=== PATIENT | female | born 1985 | race Caucasian/White ===

== ENCOUNTER 2017-11-20 05:37 | Outpatient (CLI) | payer MEDICAID ==
[~2017-11-20] VITALS: Ht 162.6 cm; Wt 115.2 kg
[~2017-11-20 05:37] MED LIST: ALBU0.632 IH; ALBU8.5H2 IH; AMOX500C2 PO; HYDR-3720 PO; IBP800T PO; METR500T PO
[2017-11-20] MEDS ORDERED: METF500T5 PO (09:22)
[2017-11-20] MEDS ORDERED: PRD20T PO (09:22)
[2017-11-20] MEDS ORDERED: BREX0.5T PO (09:22)
[2017-11-20] MEDS ORDERED: IBUP-1780 PO (09:22)
[2017-11-20] MEDS ORDERED: ASEN10TA9 SL (09:22)
[2017-11-20] MEDS ORDERED: DICY20TA10 PO (09:22)
[2017-11-20] MEDS ORDERED: OXCA300T4 PO ×2 (09:22)
[2017-11-20] MEDS ORDERED: RT-ALBUINH IH (09:22)
[2017-11-20] MEDS ORDERED: ASEN5TAB7 SL (09:22)
[2017-11-20] MEDS ORDERED: TRAM50TA2 PO (09:22)
[2017-11-20] MEDS ORDERED: ATOR20TA49 PO (09:22)
[2017-11-20] MEDS ORDERED: BUPR150T9 PO (09:22)
[2017-11-20] MEDS ORDERED: FLUT9.9S NS (09:22)
[2017-11-20] MEDS ORDERED: PANT40TA2 PO (09:22)
[2017-11-20] MEDS ORDERED: CYCL10TA9 PO (09:22)
[2017-11-20] MEDS ORDERED: ALBU0.63 IH (09:22)
== END 2017-11-20 09:54 ==
LOC: PREOP 05:37
PROVIDERS: ATTEND Surgery
DX: Z01.818 Encounter for other preprocedural examination (principal); K50.90 Crohn's disease, unspecified, without complications; K21.9 Gastro-esophageal reflux disease without esophagitis

== ENCOUNTER 2017-11-27 06:43 | Day surgery (SDC) | payer MEDICAID ==
[~2017-11-27] VITALS: Ht 162.6 cm; Wt 115.2 kg
[~2017-11-27 06:43] MED LIST changes: +ALBU0.63 IH; +ASEN10TA9 SL; +ASEN5TAB7 SL; +ATOR20TA49 PO; +BREX0.5T PO; +BUPR150T9 PO; +CYCL10TA9 PO; +DICY20TA10 PO; +FLUT9.9S NS; +IBUP-1780 PO; +METF500T5 PO; +OXCA300T4 PO; +PANT40TA2 PO; +PRD20T PO; +RT-ALBUINH IH; +TRAM50TA2 PO
--- OUTSIDE RECORDS SUMMARY | 2017-11-27 06:46 | XMS REPORT | Continuity of Care Document ---
Author Author [facility] Organization [facility] Address Unknown Phone Unavailable Allergies Active Description Code Type Severity Reaction Onset Reported/Identified Relationship to Patient Clinical Status Yes bismuth subsalicylate [id number] Drug Allergy Unknown NAUSEA 09/15/2013 Yes latex [id number] Drug Allergy Unknown RASH 09/15/2013 Yes meperidine [id number] Drug Allergy Unknown RASH 09/15/2013 Yes promethazine [id number] Drug Allergy Unknown DIFFICULTY SANDI 09/15/2013 Yes TAPE TAPE Unknown RASH 09/15/2013 Medications There is no data. Problems Date Dx Coded Attending Type Code Diagnosis Diagnosed By 09/18/2013 LEONARD SOSA MD Ot 218.2 SUBSEROUS LEIOMYOMA 09/18/2013 LEONARD SOSA MD Ot 614.6 FEM PELVIC PERITON ADH-POST-OP/INF 09/18/2013 LEONARD SOSA MD Ot 617.3 PELV PERIT ENDOMETRIOSIS 09/18/2013 LEONARD SOSA MD Ot 618.1 UTERINE PROLAPSE 09/18/2013 LEONARD SOSA MD Ot 620.2 OVARIAN CYST NEC/NOS 09/18/2013 LEONARD SOSA MD Ot 620.8 NONINFL DIS OVA/ADNX NEC 09/18/2013 LEONARD SOSA MD Ot 626.2 EXCESSIVE MENSTRUATION 09/18/2013 LEONARD SOSA MD Ot 626.8 MENSTRUAL DISORDER NEC 09/18/2013 LEONARD SOSA MD Ot V03.82 PROPHYLACTIC VACC AGAINST STREPTOCOCCUS 11/20/2017 LEONARD SOSA MD, Ot 626.2 EXCESSIVE MENSTRUATION 11/20/2017 LEONARD SOSA MD Ot V72.63 PRE-PROCEDURAL LABORATORY EXAMINATION 11/20/2017 LEONARD SOSA MD, Ot V72.84 EXAM PRE-OPERATIVE NOS 11/20/2017 LEONARD SOSA MD Ot 626.2 EXCESSIVE MENSTRUATION 11/20/2017 LEONARD SOSA MD Ot V72.63 PRE-PROCEDURAL LABORATORY EXAMINATION 11/20/2017 LEONARD SOSA MD, Ot V72.84 EXAM PRE-OPERATIVE NOS Procedures There is no data. Results There is no data. Encounters ACCT No. Visit Date/Time Discharge Status Pt. Type Provider Facility Loc./Unit Complaint [id number] 11/20/2017 05:37:00 11/20/2017 09:54:00 DIS Outpatient MACARIO SINGH DO [facility] PREOP COLONOSCOPY/EGD [id number] 11/09/2017 20:00:00 11/09/2017 23:59:59 CLS Preadmit BRYSON SHEPHERD APRN [facility] SLEEP HYPERSOMNIA, UNSPECIFIED G47.10 [id number] 09/17/2013 06:00:00 09/18/2013 09:30:00 DIS Outpatient LEONARD SOSA MD [facility] SDC MENORRHAGIA; CHRONIC PELVIC PAIN;ENDOMETRIOSIS [id number] 09/15/2013 09:54:00 09/15/2013 23:59:59 CLS Outpatient LEONARD SOSA MD [facility] PREOP MENORRHAGIA; CHRONIC PELVIC PAIN;ENDOMETRIOSIS [id number] 11/27/2017 08:00:00 PEN Preadmit MACARIO SINGH DO [facility] ENDO HX DIVERTICULTITIS/ CROHNS'S/GERD
[2017-11-27 07:16] VITALS: BP 121/72
[2017-11-27] MEDS ORDERED: LACTATED RINGERS 1,000 ML IV STA (07:20)
[2017-11-27] MEDS ORDERED: LACTATED RINGERS 1,000 ML IV ONE (07:21)
[2017-11-27] MEDS ORDERED: HURRICAINE EXT TUBE (BENZOCAINE) XX PRN (07:30)
[2017-11-27] MEDS ORDERED: MIDAZOLAM 2 MG/2 ML (VERSED) VIAL ONE ×2 (07:42→07:43)
[2017-11-27] MEDS ORDERED: PROPOFOL INJECTION 50 ML IV ONE (07:42)
--- NOTE | 2017-11-27 08:28 | Discharge Inst-Simple/Standard ---
Discharge Inst-Standard Patient Instructions/Follow Up Plan of Care/Instructions/FU: 2 weeks christoph Activity as Tolerated: Yes Discharge Diet: Regular Diet (high fiber) MACARIO SINGH DO Nov 27, 2017 08:28
--- NOTE | 2017-11-27 08:32 | Progress Note-Post Operative ---
Post-Operative Progess Note Surgeon (s)/Stonecutter Hand (s) Surgeon MACARIO SINGH DO Stonecutter Hand: na Pre-Operative Diagnosis history diverticulitis, crohn's, melana, gerd Post-Operative Diagnosis slight gastritis, diverticulosis, minute areas of inflammation Procedure & Operative Findings Date of Procedure 11/27/17 Procedure Performed/Findings egd c biopsy antrum ge junction colonoscopy with cold bx transverse colon Anesthesia Type per [facility] Estimated Blood Loss Estimated blood loss (mL): none Specimens/Packing Specimens Removed antrum, ge junction, transverse colon MACARIO SINGH DO Nov 27, 2017 08:32
[2017-11-27] MEDS ORDERED: HURRICAINE EXT TUBE (BENZOCAINE) ONE (08:43)
[2017-11-27 08:50] VITALS: BP 119/57
[2017-11-27 09:05] VITALS: BP 122/79
[2017-11-27 09:19] VITALS: BP 122/79
--- NOTE | 2017-11-27 14:22 | OPERATIVE REPORT ---
DATE OF SERVICE: PREOPERATIVE DIAGNOSES: History of diverticulitis and Crohn's, melena, gastroesophageal reflux disease. POSTOPERATIVE DIAGNOSES: Slight gastritis, diverticulosis, minute areas of inflammation of the colon. PROCEDURE: EGD with biopsies, colonoscopy with cold biopsy of transverse colon. SURGEON: Macario Ron DO. ANESTHESIA: Per MDA. ESTIMATED BLOOD LOSS: None. COMPLICATIONS: None. INDICATIONS: The patient is a 32-year-old female with history of diverticulitis and Crohn's and GERD symptoms. The patient understands risks and benefits of procedure and wished to proceed with procedure. Consent was signed on the chart. DESCRIPTION OF PROCEDURE: The patient was taken to the endoscopy suite, placed in left lateral recumbent position. Timeout was performed. Scope was inserted in mouth, down the esophagus, stomach and into the duodenum without difficulty. There were no polyps, masses or ulcerations within the duodenum. Scope was slowly withdrawn back to stomach, which had some areas of slight inflammation. This is consistent with slight gastritis. Biopsy of the antrum was obtained. Scope was retroflexed noting no other pathology. Scope was returned to its normal position, slowly withdrawn to the distal esophagus. The distal esophagus had very slight inflammation but no polyps, mass or ulcerations. Biopsy was obtained. Scope was then slowly retracted back to completely remove, noting no other pathology. Digital rectal exam was performed. There were no palpable polyps, masses or ulcerations. Scope was inserted in the rectum and advanced all the way to the cecum with minimal difficulty. Prep was adequate. There were no polyps, mass or ulcerations in the cecum, ascending, transverse, descending colon. Just very minute areas of inflammation throughout this area. Cold biopsy of the area was obtained at the transverse colon. Scope was continued to be slowly retracted back into the sigmoid colon, which shows a very minute amount of diverticulosis present. Scope was continued slowly retracted back. There were no polyps, mass or ulcerations. Once in the rectum, scope was also retroflexed noting no other pathology. Scope was returned to its normal position and slowly withdrawn until completely removed. RECOMMENDATIONS: The patient to continue on current medications. She will follow up in office in two weeks to discuss pathology results. The patient would be recommended repeat colonoscopy in two years to her Crohn's. Job ID: [id number] DocumentID: [id number] Dictated Date: 11/27/2017 08:37:43 Hha Date: 11/27/2017 14:21:43 Dictated By: MACARIO RON DO
--- NOTE | 2017-11-27 15:57 | Anesthesia-General Post-Op ---
MAC Patient Condition Mental Status/LOC: Same as Preop Cardiovascular: Satisfactory Nausea/Vomiting: Absent Respiratory: Satisfactory Pain: Controlled Complications: Absent Post Op Complications Complications None Follow Up Care/Instructions Patient Instructions None needed. Anesthesiology Discharge Order Discharge Order Patient was seen after the procedure and she was doing well, no complaints, stable vital signs, no apparent adverse anesthesia problems. KIRBY BRAXTON DO Nov 27, 2017 15:57
== END 2017-11-27 09:10 | disposition home or self-care (01) ==
LOC: ENDO 06:43
PROVIDERS: ATTEND Surgery
DX: K50.10 Crohn's disease of large intestine without complications (principal); K57.30 Diverticulosis of large intestine without perforation or abscess without bleeding; K29.70 Gastritis, unspecified, without bleeding; E11.9 Type 2 diabetes mellitus without complications; J45.909 Unspecified asthma, uncomplicated; G47.33 Obstructive sleep apnea (adult) (pediatric); F17.210 Nicotine dependence, cigarettes, uncomplicated; Z79.84 Long term (current) use of oral hypoglycemic drugs; Z79.899 Other long term (current) drug therapy; Z79.52 Long term (current) use of systemic steroids

== ENCOUNTER → 2017-12-18 | Outpatient (CLI) | payer MEDICAID ==
--- NOTE | 2017-12-18 12:42 | Diagnostic Imaging Report ---
INDICATION: Screening. COMPARISON: No prior mammograms are available for comparison. This is a baseline study. TECHNIQUE: 2D and 3D bilateral screening mammography was performed with CAD. FINDINGS: Scattered fibroglandular densities are identified bilaterally. No spiculated mass or malignant-appearing microcalcifications are seen. The axillae are unremarkable. IMPRESSION: No mammographic features suspicious for malignancy are identified. ACR BI-RADS Category 1: Negative. Result letter will be mailed to the patient. Note: At least 10% of breast cancer is not imaged by mammography. Dictated by: Dictated on workstation # [id number]
== END ==
LOC: RAD 09:19
PROVIDERS: ATTEND Nurse Practitioner Family
DX: Z12.31 Encounter for screening mammogram for malignant neoplasm of breast (principal)
CPT/HCPCS: 77067

== ENCOUNTER 2018-08-17 07:30 | Emergency (ER) | payer MEDICAID ==
[~2018-08-17] VITALS: Ht 160 cm; Wt 125.2 kg
[~2018-08-17 07:30] MED LIST changes: +METF-397 PO; -METF500T5 PO
--- OUTSIDE RECORDS SUMMARY | 2018-08-17 07:37 | XMS REPORT ---
Author Author JEFFREY CISNEROS Organization [facility] Address [address] [place] [address] Care Team Providers Care Associate Oracle Retail Name Role Phone JEFFREY CISNEROS Unavailable PROBLEMS Type Condition ICD9-CM Code KPW40-CB Code Onset Dates Condition Status SNOMED Code Problem Body mass index (BMI) of 50-59.9 in adult Z68.43 Active 933104248 Problem Polycystic ovarian syndrome E28.2 Active 62627243 Problem Morbid (severe) obesity due to excess calories E66.01 Active 028891866 Problem BMI 50.0-59.9, adult Z68.43 Active 845172144 Problem Environmental allergies Z91.09 Active 401105132 Problem Sleep apnea, unspecified type G47.30 Active 05644905 Problem Mood disorder F39 Active 54539530 Problem Hypersomnia G47.10 Active 12294421 Problem Daytime sleepiness R40.0 Active 518204897632 Problem Dyslipidemia E78.5 Active 488506863 Problem Diverticulitis K57.92 Active 015880526 Problem Seasonal allergic rhinitis due to pollen J30.1 Active 86003823 Problem Simple chronic bronchitis J41.0 Active 66837710 Problem Mild persistent asthma without complication J45.30 Active 200299500 Problem Anxiety F41.9 Active 39763213 Problem Enteropathic arthropathies, 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 Active 5566916 Problem Morbid obesity due to excess calories E66.01 Active 467858933 Problem Swelling of multiple joints M25.40 Active 03776005 Problem Nausea and vomiting in adult R11.2 Active 44426600 Problem Gastroesophageal reflux disease without esophagitis K21.9 Active 941461026 Problem Crohns disease without complication, unspecified gastrointestinal tract location K50.90 Active 32438793 Problem Metabolic syndrome E88.81 Active 232810864 Problem Bulging lumbar disc M51.26 Active 242503673 Problem Eczema, unspecified type L30.9 Active 76791928 ALLERGIES No Information ENCOUNTERS Encounter Location Date Diagnosis [facility] [id number] [place] [address]366- 5599 28 Apr, 2018 Mild persistent asthma without complication J45.30 and Polycystic ovarian syndrome E28.2 [facility] [id number] [place] [address] 50428- 7252 14 Apr, 2018 [place] [place] [id number] [place] [address] 94942- 0988 19 Mar, 2018 Dyslipidemia E78.5 and Crohns disease without complication, unspecified gastrointestinal tract location K50.90 [facility] [id number] [place] [address] 65528- 3660 15 Mar, 2018 Dyslipidemia E78.5 [facility] [id number] [place] [address] 92892- 3943 05 Mar, 2018 Crohns disease without complication, unspecified gastrointestinal tract location K50.90 ; Bulging lumbar disc M51.26 ; Mild persistent asthma without complication J45.30 ; Dyslipidemia E78.5 ; Long-term use of high-risk medication Z79.899 and BMI 50.0-59.9, adult Z68.43 [facility] [id number] [place] [address] 70364- 9109 12 Feb, 2018 Nausea and vomiting in adult R11.2 [facility] [id number] [place] [address] 73223- 4422 Dec, Gastroesophageal reflux disease without esophagitis K21.9 [facility] [id number] [place] [address] 97102- 6716 Dec, [facility] [id number] [place] [address] 31987- 7086 Dec, Skin lesion L98.9 and Skin tags, multiple acquired L91.8 [facility] [id number] [place] [address] 15838- 2385 Nov, Encounter for well woman exam without gynecological exam Z00.00 ; Metabolic syndrome E88.81 ; Crohns disease without complication, unspecified gastrointestinal tract location K50.90 ; Dyslipidemia E78.5 ; BMI 50.0-59.9, adult Z68.43 ; Abscess, dental K04.7 and Screening breast examination Z12.31 [place] [address] [address] 19[address]- [address]53 October, Sleep apnea, unspecified type G47.[address] [address]- [address] Sep, Diverticulitis K57.92 and BMI 50.0-59.9, adult Z68.43 [place] [address] 745[address]- 8074 Sep, [address] 857[address]- 8244 Sep, [address] 83882- 5960 Aug, [address] 38111- 7157 Jul, Dental examination Z01.[address] 38390- 8706 Jul, Polycystic ovarian syndrome E28.2 ; Nipple discharge N64.52 ; Mild persistent asthma without complication J45.30 ; Seasonal allergic rhinitis due to pollen J30.1 ; Abscess, dental K04.7 ; Nausea and vomiting in adult R11.2 and Body mass index (BMI) of 50-59.9 in adult Z68.43 [facility] [id number] [place] [address] 67473- 4851 May, [address] 77[address]- 0844 May, Metabolic syndrome E88.81 ; Dyslipidemia E78.5 and Morbid obesity due to excess calories E66.[address] 29640- 6812 May, Metabolic syndrome E88.81 ; Dyslipidemia E78.5 ; Morbid obesity due to excess calories E66.01 ; Mild persistent asthma without complication J45.30 ; Crohns disease without complication, unspecified gastrointestinal tract location K50.90 ; Daytime sleepiness R40.0 and Snoring R06.83 [facility] [place] [id number] [place] [address] 31272- 8420 Apr, Peroneal tendinitis of right lower extremity M76.71 [facility] [address] 39454- 9310 Mar, [place] [address] 68705- 3439 Mar, Mood disorder F39 ; Anxiety F41.9 ; Gastroesophageal reflux disease without esophagitis K21.9 ; Bulging lumbar disc M51.26 ; Swelling of multiple joints M25.40 ; Mild persistent asthma without complication J45.30 ; Enteropathic arthropathies, 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 ; Polycystic ovarian syndrome E28.2 ; Morbid (severe) obesity due to excess calories E66.01 ; Body mass index (BMI) of 50-59.9 in adult Z68.43 ; Dyslipidemia E78.5 ; Environmental allergies Z91.09 ; Simple chronic bronchitis J41.0 ; Crohns disease without complication, unspecified gastrointestinal tract location K50.90 ; Eczema, unspecified type L30.9 ; Pain in right ankle and joints of right foot M25.571 and Metabolic syndrome E88.81 [facility] [id number] [place] [address] 75710- 2400 Mar, [facility] [place] [id number] [place] [address] 83582- 1009 Mar, [place] [address] 49680- 7996 Mar, [place] [place] [id number] [place] [address] 30706- 6205 Feb, [place] [id number] [place] [address] 35414- 4629 Feb, Anxiety F41.9 ; Mood disorder F39 and Morbid (severe) obesity due to excess calories E66.01 [facility] [place] [id number] [place] [address] 40588- 4568 Feb, [place] [place] [id number] [place] [address] 54829- 4027 Feb, [facility] [id number] [place] [address] 99541- 7422 Feb, [facility] [place] [id number] [place] [address] 94592- 9049 Feb, Acute right ankle pain M25.571 ; Eczema, unspecified type L30.9 ; Hair loss L65.9 ; Polycystic ovarian syndrome E28.2 ; Body mass index ( BMI) of 50-59.9 in adult Z68.43 and Morbid (severe) obesity due to excess calories E66.01 [place] [place] [id number] [place] [address] 19084- 6036 Nov, [facility] [id number] [place] [address] 44875- 4650 October, [facility] [id number] [place] [address] 78255- 2370 Jul, [facility] [id number] [place] [address] 38510- 8444 Jul, Enteropathic arthropathies, 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 and Gastroesophageal reflux disease without esophagitis K21.9 [place] [address] [address] [place] [address] 87156- 0132 Apr, Mood disorder F39 ; Anxiety F41.9 ; Environmental allergies Z91.09 ; Gastroesophageal reflux disease without esophagitis K21.9 ; Bulging lumbar disc M51.26 ; Swelling of multiple joints M25.40 ; Mild persistent asthma without complication J45.30 ; Simple chronic bronchitis J41.0 ; Enteropathic arthropathies, 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 [id number] [place] [address] Apr, IMMUNIZATIONS No Known Immunizations SOCIAL HISTORY Never Assessed REASON FOR VISIT PLAN OF CARE VITAL SIGNS MEDICATIONS Medication Instructions Dosage Frequency Start Date End Date Duration Status Flonase 50 MCG/ACT Nasally Once a day 1 spray in each nostril 24h Active MetFORMIN HCl ER 500 mg Orally Once a day 1 tablet with evening meal 24h Jul, 30 day(s) Active RESULTS No Results PROCEDURES No Known procedures INSTRUCTIONS MEDICATIONS ADMINISTERED No Known Medications MEDICAL (GENERAL) HISTORY Type Description Date Medical History mood disorder Medical History treated like crohns Medical History copd Medical History tobaccoism Medical History asthma Medical History gerd Medical History allergies Surgical History partial colon removal Surgical History Hysterectomy 2013 Surgical History ovarian cysts removals Surgical History C section x 1 Surgical History D and C (numerous) Surgical History Colonoscopy (too numerous to count) Surgical History cholecystectomy Surgical History EGD at Hospitalization History for colon reasons Hospitalization History asthma Hospitalization History surgeries
--- OUTSIDE RECORDS SUMMARY | 2018-08-17 07:37 | XMS REPORT ---
Author Author BRYSON SHEPHERD Organization [facility] Address [address] [place] [address] Care Team Providers Care Security Auditor Name Role Phone JOAO BRYSON Unavailable PROBLEMS Type Condition ICD9-CM Code FKL55-ZP Code Onset Dates Condition Status SNOMED Code Problem Body mass index (BMI) of 50-59.9 in adult Z68.43 Active 621542717 Problem Polycystic ovarian syndrome E28.2 Active 59388551 Problem Morbid (severe) obesity due to excess calories E66.01 Active 752624707 Problem BMI 50.0-59.9, adult Z68.43 Active 407724276 Problem Environmental allergies Z91.09 Active 719682619 Problem Sleep apnea, unspecified type G47.30 Active 01686532 Problem Mood disorder F39 Active 64499775 Problem Hypersomnia G47.10 Active 19318746 Problem Daytime sleepiness R40.0 Active 544027999005 Problem Dyslipidemia E78.5 Active 345501806 Problem Diverticulitis K57.92 Active 489024841 Problem Seasonal allergic rhinitis due to pollen J30.1 Active 88425350 Problem Simple chronic bronchitis J41.0 Active 15684416 Problem Mild persistent asthma without complication J45.30 Active 430497698 Problem Anxiety F41.9 Active 32676961 Problem Enteropathic arthropathies, 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 Active 4418521 Problem Morbid obesity due to excess calories E66.01 Active 642440497 Problem Swelling of multiple joints M25.40 Active 86274351 Problem Nausea and vomiting in adult R11.2 Active 86035956 Problem Gastroesophageal reflux disease without esophagitis K21.9 Active 902201807 Problem Crohns disease without complication, unspecified gastrointestinal tract location K50.90 Active 41612030 Problem Metabolic syndrome E88.81 Active 891735537 Problem Bulging lumbar disc M51.26 Active 778734231 Problem Eczema, unspecified type L30.9 Active 89007848 ALLERGIES No Information ENCOUNTERS Encounter Location Date Diagnosis [facility] [address] [address] Feb, [place] [address] [place] [id number] [place] [address] 87554- 2633 Dec, Gastroesophageal reflux disease without esophagitis K21.9 [facility] [address] [id number] [place] [address] 53331- 6541 Dec, [facility] [address] [id number] [place] [address] 22586- 4030 Dec, Skin lesion L98.9 and Skin tags, multiple acquired L91.8 [facility] [facility] [address] [id number] [place] [address] 86724- 5380 Nov, Encounter for well woman exam without gynecological exam Z00.00 ; Metabolic syndrome E88.81 ; Crohns disease without complication, unspecified gastrointestinal tract location K50.90 ; Dyslipidemia E78.5 ; BMI 50.0-59.9, adult Z68.43 ; Abscess, dental K04.7 and Screening breast examination Z12.31 [place] [id number] [place] [address] 51011- 1601 October, Sleep apnea, unspecified type G47.30 [place] [id number] [place] [address] 65556- 7874 Sep, Diverticulitis K57.92 and BMI 50.0-59.9, adult Z68.43 [facility] [address] [id number] [place] [address] 29841- 5868 Sep, [place] [id number] [place] [address] 01914- 1057 Sep, [place] [address] [id number] [place] [address] 10249- 6646 Aug, [place] [address] [place] [address] 28900- 3770 Jul, Dental examination Z01.20 [place] [address] [place] [id number] [place] [address] 73597- 2550 Jul, Polycystic ovarian syndrome E28.2 ; Nipple discharge N64.52 ; Mild persistent asthma without complication J45.30 ; Seasonal allergic rhinitis due to pollen J30.1 ; Abscess, dental K04.7 ; Nausea and vomiting in adult R11.2 and Body mass index (BMI) of 50-59.9 in adult Z68.[address] [address]- [address]603 14 May, [address] 37902- 3733 11 May, 2017 Metabolic syndrome E88.81 ; Dyslipidemia E78.5 and Morbid obesity due to excess calories E66.[address] 40750- 8274 08 May, 2017 Metabolic syndrome E88.81 ; Dyslipidemia E78.5 ; Morbid obesity due to excess calories E66.01 ; Mild persistent asthma without complication J45.30 ; Crohns disease without complication, unspecified gastrointestinal tract location K50.90 ; Daytime sleepiness R40.0 and Snoring R06.[address] 39507- 3129 Apr, Peroneal tendinitis of right lower extremity M76.[address] 47659- 6650 Mar, [address] 12107- 7708 Mar, Mood disorder F39 ; Anxiety F41.9 [...] right foot M25.571 and Metabolic syndrome E88.81 [place] [address] [id number] [place] [address] 44503- 3213 Mar, [place] [address] 38192- 3292 Mar, [place] [address] [id number] [place] [address] 29762- 0350 Mar, [place] [address] 45996- 6688 Feb, [place] [address] [id number] [place] [address] 97193- 4278 Feb, Anxiety F41.9 ; Mood disorder F39 and Morbid (severe) obesity due to excess calories E66.01 [place] [address] [id number] [place] [address] 04698- 4031 Feb, [place] [address] 39938- 9690 Feb, [place] [address] [id number] [place] [address] 14278- 8020 Feb, [place] [address] [id number] [place] [address] 37385- 0694 Feb, Acute right ankle pain M25.571 ; Eczema, unspecified type L30.9 ; Hair loss L65.9 ; Polycystic ovarian syndrome E28.2 ; Body mass index ( BMI) of 50-59.9 in adult Z68.43 and Morbid (severe) obesity due to excess calories E66.01 [place] [address] [id number] [place] [address] 55586- 2034 Nov, [place] [address] 01829- 5251 October, [place] [address] [facility] [id number] [address] Jul, [place] [address] [place] [id number] [place] [address] 98852- 0206 Jul, Enteropathic arthropathies, 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 and Gastroesophageal reflux disease without esophagitis K21.9 [place] [address] [place] [address] 82022- 6950 Apr, Mood disorder F39 ; Anxiety F41.9 [...] Morbid obesity due to excess calories E66.01 [place] [address] [id number] [address] Apr, IMMUNIZATIONS No Known Immunizations SOCIAL HISTORY Never Assessed REASON FOR VISIT Refill request PLAN OF CARE VITAL SIGNS MEDICATIONS Medication Instructions Dosage Frequency Start Date End Date Duration Status Pantoprazole Sodium 40 mg Orally Once a day 1 tablet 24h 90 days Active RESULTS No Results PROCEDURES No Known [...]
--- OUTSIDE RECORDS SUMMARY | 2018-08-17 07:37 | XMS REPORT ---
Author Author JEFFREY CISNEROS Organization [facility] Address [address] [place] [address] Care Team Providers Care Manuscripts Archivist Name Role Phone JEFFREY CISNEROS Unavailable PROBLEMS Type Condition ICD9-CM Code CEW25-MZ Code Onset Dates Condition Status SNOMED Code Problem Body mass index (BMI) of 50-59.9 in adult Z68.43 Active 014907220 Problem Polycystic ovarian syndrome E28.2 Active 90427204 Problem Morbid (severe) obesity due to excess calories E66.01 Active 652633177 Problem BMI 50.0-59.9, adult Z68.43 Active 075292358 Problem Environmental allergies Z91.09 Active 554759381 Problem Sleep apnea, unspecified type G47.30 Active 71306803 Problem Mood disorder F39 Active 92103341 Problem Hypersomnia G47.10 Active 93966639 Problem Daytime sleepiness R40.0 Active 617650735861 Problem Dyslipidemia E78.5 Active 751867271 Problem Diverticulitis K57.92 Active 183177150 Problem Seasonal allergic rhinitis due to pollen J30.1 Active 51820683 Problem Simple chronic bronchitis J41.0 Active 38708756 Problem Mild persistent asthma without complication J45.30 Active 387098319 Problem Anxiety F41.9 Active 02773213 Problem Enteropathic arthropathies, 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 Active 7266068 Problem Morbid obesity due to excess calories E66.01 Active 126917035 Problem Swelling of multiple joints M25.40 Active 18818191 Problem Nausea and vomiting in adult R11.2 Active 27206036 Problem Gastroesophageal reflux disease without esophagitis K21.9 Active 500091180 Problem Crohns disease without complication, unspecified gastrointestinal tract location K50.90 Active 46640489 Problem Metabolic syndrome E88.81 Active 301688573 Problem Bulging lumbar disc M51.26 Active 394200769 Problem Eczema, unspecified type L30.9 Active 47203228 ALLERGIES No Information ENCOUNTERS Encounter Location Date Diagnosis [place] [address] [id number] [place] [address] 23808- 8528 14 Apr, 2018 [place] [address] 59874- 9971 19 Mar, 2018 Dyslipidemia E78.5 and Crohns disease without complication, unspecified gastrointestinal tract location K50.90 [place] [id number] [place] [address] 62685- 9753 15 Mar, 2018 Dyslipidemia E78.5 [place] [id number] [place] [address] 88490- 1301 05 Mar, 2018 Crohns disease without complication, unspecified gastrointestinal tract location K50.90 ; Bulging lumbar disc M51.26 ; Mild persistent asthma without complication J45.30 ; Dyslipidemia E78.5 ; Long-term use of high-risk medication Z79.899 and BMI 50.0-59.9, adult Z68.43 [place] [id number] [place] [address] 03675- 1248 12 Feb, 2018 Nausea and vomiting in adult R11.2 [place] [id number] [place] [address] 65211- 9759 Dec, Gastroesophageal reflux disease without esophagitis K21.9 [place] [id number] [place] [address] 83006- 3841 Dec, [place] [id number] [place] [address] 79421- 0531 09 Dec, 2017 Skin lesion L98.9 and Skin tags, multiple acquired L91.8 [place] [id number] [place] [address] 72240- 6700 28 Nov, 2017 Encounter for well woman exam without gynecological exam Z00.00 ; Metabolic syndrome E88.81 ; Crohns disease without complication, unspecified gastrointestinal tract location K50.90 ; Dyslipidemia E78.5 ; BMI 50.0-59.9, adult Z68.43 ; Abscess, dental K04.7 and Screening breast examination Z12.31 [place] [id number] [place] [address] 10672- 7221 October, Sleep apnea, unspecified type G47.[address] 83146- 6064 Sep, Diverticulitis K57.92 and BMI 50.0-59.9, adult Z68.[address] 93508- 3873 Sep, [address] 02154- 2799 Sep, [address] 14913- 3240 Aug, [address] 83581- 7828 Jul, Dental examination Z01.[address] 33756- 3059 Jul, Polycystic ovarian syndrome E28.2 ; Nipple discharge N64.52 ; Mild persistent asthma without complication J45.30 ; Seasonal allergic rhinitis due to pollen J30.1 ; Abscess, dental K04.7 ; Nausea and vomiting in adult R11.2 and Body mass index (BMI) of 50-59.9 in adult Z68.43 [place] [id number] [place] [address] 69296- 0032 May, [place] [id number] [place] [address] 95990- 8251 May, Metabolic syndrome E88.81 ; Dyslipidemia E78.5 and Morbid obesity due to excess calories E66.[address] 22136- 8126 08 May, 2017 Metabolic syndrome E88.81 ; Dyslipidemia E78.5 ; Morbid obesity due to excess calories E66.01 ; Mild persistent asthma without complication J45.30 ; Crohns disease without complication, unspecified gastrointestinal tract location K50.90 ; Daytime sleepiness R40.0 and Snoring R06.83 [place] [id number] [place] [address] 11297- 5975 Apr, Peroneal tendinitis of right lower extremity M76.71 [place] [id number] [place] [address] 86147- 5816 18 Mar, 2017 [place] [address] 81992- 6751 Mar, Mood disorder F39 ; Anxiety F41.9 [...] right foot M25.571 and Metabolic syndrome E88.81 [place] [id number] [place] [address] 21838- 0576 Mar, [place] [address] [id number] [place] [address] 67126- 0802 Mar, [place] [id number] [place] [address] 01893- 4712 Mar, [place] [id number] [place] [address] 08389- 3327 Feb, [place] [address] 61387- 0084 Feb, Anxiety F41.9 ; Mood disorder F39 and Morbid (severe) obesity due to excess calories E66.01 [place] [address] 34413- 1907 Feb, [place] [id number] [place] [address] 83881- 7394 Feb, [place] [id number] [place] [address] 17150- 6814 Feb, [place] [id number] [place] [address] 95160- 0749 Feb, Acute right ankle pain M25.571 ; Eczema, unspecified type L30.9 ; Hair loss L65.9 ; Polycystic ovarian syndrome E28.2 ; Body mass index ( BMI) of 50-59.9 in adult Z68.43 and Morbid (severe) obesity due to excess calories E66.01 [place] [id number] [place] [address] 19562- 4483 Nov, [place] [id number] [place] [address] 68757- 6695 October, [place] [address] 81802- 9920 Jul, [place] [id number] [place] [address] 59226- 1608 Jul, Enteropathic arthropathies, 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 and Gastroesophageal reflux disease without esophagitis K21.9 [place] [id number] [place] [address] 55469- 5061 Apr, Mood disorder F39 ; Anxiety F41.9 [...] Morbid obesity due to excess calories E66.01 [place] [id number] [place] [address] 95068- 1976 Apr, IMMUNIZATIONS No Known Immunizations SOCIAL HISTORY Never Assessed REASON FOR VISIT Lice Shampoo PLAN OF CARE VITAL SIGNS MEDICATIONS Medication Instructions Dosage Frequency Start Date End Date Duration Status Sklice 0.5 % Externally put in dry hair; let set 10 min; then rinse well. repeat in two weeks use in hair October, Active RESULTS No Results PROCEDURES No Known [...]
--- OUTSIDE RECORDS SUMMARY | 2018-08-17 07:38 | XMS REPORT ---
Author Author BRYSON SHEPHERD Organization [facility] Address [address] [place] [address] Care Team Providers Care Veneer Glue Spreader Name Role Phone JOAO BRYSON Unavailable PROBLEMS Type Condition ICD9-CM Code GMR59-KG Code Onset Dates Condition Status SNOMED Code Problem Body mass index (BMI) of 50-59.9 in adult Z68.43 Active 510103403 Problem Polycystic ovarian syndrome E28.2 Active 27290785 Problem Morbid (severe) obesity due to excess calories E66.01 Active 512355570 Problem BMI 50.0-59.9, adult Z68.43 Active 251930468 Problem Environmental allergies Z91.09 Active 931458715 Problem Sleep apnea, unspecified type G47.30 Active 41263134 Problem Mood disorder F39 Active 42066639 Problem Hypersomnia G47.10 Active 94738592 Problem Daytime sleepiness R40.0 Active 270745670459 Problem Dyslipidemia E78.5 Active 201097358 Problem Diverticulitis K57.92 Active 182786882 Problem Seasonal allergic rhinitis due to pollen J30.1 Active 42135397 Problem Simple chronic bronchitis J41.0 Active 49801301 Problem Mild persistent asthma without complication J45.30 Active 889435634 Problem Anxiety F41.9 Active 85803117 Problem Enteropathic arthropathies, 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 Active 5702233 Problem Morbid obesity due to excess calories E66.01 Active 284763542 Problem Swelling of multiple joints M25.40 Active 86316402 Problem Nausea and vomiting in adult R11.2 Active 23538615 Problem Gastroesophageal reflux disease without esophagitis K21.9 Active 227198916 Problem Crohns disease without complication, unspecified gastrointestinal tract location K50.90 Active 19623304 Problem Metabolic syndrome E88.81 Active 511074842 Problem Bulging lumbar disc M51.26 Active 688291177 Problem Eczema, unspecified type L30.9 Active 15592603 ALLERGIES No Information ENCOUNTERS Encounter Location Date Diagnosis [place] [address] [address] Feb, [place] [address] [place] [address] [id number] [place] [address] 38119- 6468 Dec, Gastroesophageal reflux disease without esophagitis K21.9 [place] [address] [place] [address] [id number] [place] [address] 85920- 5965 Dec, [place] [id number] [place] [address] 10243- 5273 Dec, Skin lesion L98.9 and Skin tags, multiple acquired L91.8 [place] [address] [id number] [place] [address] 61023- 8861 Nov, Encounter for well woman exam without gynecological exam Z00.00 ; Metabolic syndrome E88.81 ; Crohns disease without complication, unspecified gastrointestinal tract location K50.90 ; Dyslipidemia E78.5 ; BMI 50.0-59.9, adult Z68.43 ; Abscess, dental K04.7 and Screening breast examination Z12.31 [place] [address] [id number] [place] [address] 74934- 3399 October, Sleep apnea, unspecified type G47.30 [place] [address] [place] [address] 44109- 6674 Sep, Diverticulitis K57.92 and BMI 50.0-59.9, adult Z68.43 [place] [address] [place] [address] [id number] [place] [address] 34637- 8902 Sep, [place] [address] [id number] [place] [address] 82510- 6527 Sep, [place] [address] [place] [address] [id number] [place] [address] 33996- 5203 Aug, [place] [address] [place] [address] 01503- 6477 Jul, Dental examination Z01.20 [place] [address] [place] [id number] [place] [address] 65183- 5546 Jul, Polycystic ovarian syndrome E28.2 ; Nipple discharge N64.52 ; Mild persistent asthma without complication J45.30 ; Seasonal allergic rhinitis due to pollen J30.1 ; Abscess, dental K04.7 ; Nausea and vomiting in adult R11.2 and Body mass index (BMI) of 50-59.9 in adult Z68.[address] 60950- 5762 14 May, [address] 53023- 6639 11 May, 2017 Metabolic syndrome E88.81 ; Dyslipidemia E78.5 and Morbid obesity due to excess calories E66.[address] 72594- 7224 08 May, 2017 Metabolic syndrome E88.81 ; Dyslipidemia E78.5 ; Morbid obesity due to excess calories E66.01 ; Mild persistent asthma without complication J45.30 ; Crohns disease without complication, unspecified gastrointestinal tract location K50.90 ; Daytime sleepiness R40.0 and Snoring R06.[address] 64756- 5375 Apr, Peroneal tendinitis of right lower extremity M76.[address] 67842- 3315 Mar, [address] 97725- 9969 Mar, Mood disorder F39 ; Anxiety F41.9 [...] right foot M25.571 and Metabolic syndrome E88.81 [place] [address] [place] [id number] [place] [address] 93595- 9514 Mar, [place] [address] 78628- 1132 Mar, [place] [address] [place] [id number] [place] [address] 99185- 4107 Mar, [place] [address] 82124- 4770 Feb, [place] [address] [place] [address] [id number] [place] [address] 76343- 5303 Feb, Anxiety F41.9 ; Mood disorder F39 and Morbid (severe) obesity due to excess calories E66.01 [place] [address] [place] [address] [id number] [place] [address] 88811- 0022 Feb, [place] [address] 92373- 1219 Feb, [place] [address] [place] [address] [id number] [place] [address] 95081- 5099 Feb, [place] [address] [id number] [place] [address] 29151- 5328 Feb, Acute right ankle pain M25.571 ; Eczema, unspecified type L30.9 ; Hair loss L65.9 ; Polycystic ovarian syndrome E28.2 ; Body mass index ( BMI) of 50-59.9 in adult Z68.43 and Morbid (severe) obesity due to excess calories E66.01 [place] [address] [id number] [place] [address] 43252- 4576 Nov, [place] [address] 39554- 9950 October, [place] [address] [facility] [id number] [address]- 4966 Jul, [place] [address] [place] [address] 71534- 8576 Jul, Enteropathic arthropathies, 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
--- OUTSIDE RECORDS SUMMARY | 2018-08-17 07:38 | XMS REPORT ---
Author Author BRYSON SHEPHERD Organization [facility] Address [address] [place] [address] Care Team Providers Care Load Checker Name Role Phone JOAO BRYSON Unavailable PROBLEMS Type Condition ICD9-CM Code CSO21-ZH Code Onset Dates Condition Status SNOMED Code Problem Body mass index (BMI) of 50-59.9 in adult Z68.43 Active 239325189 Problem Polycystic ovarian syndrome E28.2 Active 01683986 Problem Morbid (severe) obesity due to excess calories E66.01 Active 291137008 Problem BMI 50.0-59.9, adult Z68.43 Active 261075489 Problem Environmental allergies Z91.09 Active 682901503 Problem Sleep apnea, unspecified type G47.30 Active 38573346 Problem Mood disorder F39 Active 70358913 Problem Hypersomnia G47.10 Active 07039018 Problem Daytime sleepiness R40.0 Active 683519254023 Problem Dyslipidemia E78.5 Active 893292637 Problem Diverticulitis K57.92 Active 612009495 Problem Seasonal allergic rhinitis due to pollen J30.1 Active 74270869 Problem Simple chronic bronchitis J41.0 Active 18520470 Problem Mild persistent asthma without complication J45.30 Active 615296068 Problem Anxiety F41.9 Active 28565851 Problem Enteropathic arthropathies, 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 Active 7829572 Problem Morbid obesity due to excess calories E66.01 Active 210004545 Problem Swelling of multiple joints M25.40 Active 82201150 Problem Nausea and vomiting in adult R11.2 Active 50087974 Problem Gastroesophageal reflux disease without esophagitis K21.9 Active 769991244 Problem Crohns disease without complication, unspecified gastrointestinal tract location K50.90 Active 83116156 Problem Metabolic syndrome E88.81 Active 971000053 Problem Bulging lumbar disc M51.26 Active 855516865 Problem Eczema, unspecified type L30.9 Active 10966006 ALLERGIES No Information ENCOUNTERS Encounter Location Date Diagnosis [place] [address] [place] [id number] [place] [address] 43710- 0602 Dec, Gastroesophageal reflux disease without esophagitis K21.9 [place] [address] [id number] [place] [address] 95750- 9049 Dec, [place] [address] [place] [id number] [place] [address] 00600- 9628 Dec, Skin lesion L98.9 and Skin tags, multiple acquired L91.8 [place] [address] [id number] [place] [address] 99614- 0422 28 Nov, 2017 Encounter for well woman exam without gynecological exam Z00.00 ; Metabolic syndrome E88.81 ; Crohns disease without complication, unspecified gastrointestinal tract location K50.90 ; Dyslipidemia E78.5 ; BMI 50.0-59.9, adult Z68.43 ; Abscess, dental K04.7 and Screening breast examination Z12.31 [place] [address] 07470- 0517 October, Sleep apnea, unspecified type G47.30 [place] [address] 66545- 1048 Sep, Diverticulitis K57.92 and BMI 50.0-59.9, adult Z68.43 [place] [address] [place] [id number] [place] [address] 38363- 4556 Sep, [place] [address] 42199- 0337 Sep, [place] [address] [place] [id number] [place] [address] 69548- 9057 Aug, [place] [address] 67990- 3684 Jul, Dental examination Z01.20 [place] [id number] [place] [address] 62209- 6385 Jul, Polycystic ovarian syndrome E28.2 ; Nipple discharge N64.52 ; Mild persistent asthma without complication J45.30 ; Seasonal allergic rhinitis due to pollen J30.1 ; Abscess, dental K04.7 ; Nausea and vomiting in adult R11.2 and Body mass index (BMI) of 50-59.9 in adult Z68.43 [place] [id number] [place] [address] 09968- 1403 14 May, [address] 76132- 6107 11 May, 2017 Metabolic syndrome E88.81 ; Dyslipidemia E78.5 and Morbid obesity due to excess calories E66.[address] 30123- 5668 08 May, 2017 Metabolic syndrome E88.81 ; Dyslipidemia E78.5 ; Morbid obesity due to excess calories E66.01 ; Mild persistent asthma without complication J45.30 ; Crohns disease without complication, unspecified gastrointestinal tract location K50.90 ; Daytime sleepiness R40.0 and Snoring R06.[address] 96722- 9679 16 Apr, 2017 Peroneal tendinitis of right lower extremity M76.[address] 54785- 5385 18 Mar, [address] 75311- 7589 Mar, Mood disorder F39 ; Anxiety F41.9 [...] right foot M25.571 and Metabolic syndrome E88.81 [facility] [id number] [place] [address] 14982- 6550 Mar, [facility] [id number] [place] [address] 91334- 5659 Mar, [facility] [address] [place] [id number] [place] [address] 98356- 5914 Mar, [facility] [id number] [place] [address] 99243- 4719 Feb, [place] [address] [id number] [place] [address] 33592- 4049 Feb, Anxiety F41.9 ; Mood disorder F39 and Morbid (severe) obesity due to excess calories E66.01 [place] [id number] [place] [address] 42229- 9115 Feb, [facility] [address] [id number] [place] [address] 48437- 9004 Feb, [place] [address] [place] [id number] [place] [address] 54898- 2426 Feb, [facility] [id number] [place] [address] 98655- 3088 Feb, Acute right ankle pain M25.571 ; Eczema, unspecified type L30.9 ; Hair loss L65.9 ; Polycystic ovarian syndrome E28.2 ; Body mass index ( BMI) of 50-59.9 in adult Z68.43 and Morbid (severe) obesity due to excess calories E66.01 [facility] [id number] [place] [address] 26873- 7585 Nov, [facility] [address] [id number] [place] [address] 46569- 6539 October, [facility] [id number] [place] [address] 78096- 7116 Jul, [place] [address] [facility] [id number] [address]- 0861 Jul, Enteropathic arthropathies, 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 and Gastroesophageal reflux disease without esophagitis K21.9 [place] [address] [facility] [id number] [address]- 2838 Apr, Mood disorder F39 ; Anxiety F41.9 [...] Morbid obesity due to excess calories E66.01 [place] [address] [facility] [id number] [address]- 3240 Apr, IMMUNIZATIONS No Known Immunizations SOCIAL HISTORY Never Assessed REASON FOR VISIT Sleep study PLAN OF CARE VITAL SIGNS MEDICATIONS Unknown Medications RESULTS No Results PROCEDURES Procedure Date Ordered Result Body Site SLEEP STUDY ([facility]) 2017-10-17 NOT PERFORMED/SEE INTERNAL NOTES INSTRUCTIONS MEDICATIONS ADMINISTERED No Known Medications MEDICAL (GENERAL) HISTORY Type Description Date Medical History mood disorder Medical History treated like crohns Medical History copd Medical History tobaccoism Medical History asthma Medical History gerd Medical History allergies Surgical History partial colon removal Surgical History Hysterectomy 2014 Surgical History ovarian cysts removals Surgical History C section x 1 Surgical History D and C (numerous) Surgical History Colonoscopy (too numerous to count) Surgical History cholecystectomy Surgical History EGD at Hospitalization History for colon reasons Hospitalization History asthma Hospitalization History surgeries
--- OUTSIDE RECORDS SUMMARY | 2018-08-17 07:38 | XMS REPORT ---
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 Active 2534843 Problem Sleep apnea, unspecified type G47.30 Active 61123604 Problem Simple chronic bronchitis J41.0 Active 48537853 Problem Hypersomnia G47.10 Active 18545123 Problem Daytime sleepiness R40.0 Active 892172142517 Problem Dyslipidemia E78.5 Active 137643116 Problem Diverticulitis K57.92 Active 578491332 Problem Seasonal allergic rhinitis due to pollen J30.1 Active 66479087 Problem Mood disorder F39 Active 36984335 Problem Morbid obesity due to excess calories E66.01 Active 487007016 Problem Anxiety F41.9 Active 66177901 Problem Environmental allergies Z91.09 Active 505234595 Problem Mild persistent asthma without complication J45.30 Active 539782339 Problem Crohns disease without complication, unspecified gastrointestinal tract location K50.90 Active 20697869 Problem Nausea and vomiting in adult R11.2 Active 75837200 Problem Bulging lumbar disc M51.26 Active 412961812 Problem Swelling of multiple joints M25.40 Active 39901713 Problem Metabolic syndrome E88.81 Active 072533971 Problem Gastroesophageal reflux disease without esophagitis K21.9 Active 147528477 Problem Body mass index (BMI) of 50-59.9 in adult Z68.43 Active 584924614 ALLERGIES Substance Reaction Event Type Date Status Phenergan rash Drug Allergy Nov, Active Pepto-Bismol vomiting Drug Allergy Nov, Active Demerol anaphylaxis Drug Allergy Nov, Active BusPIRone HCl anaphylaxis Drug Allergy Nov, Active Abilify anaphylaxis Drug Allergy Nov, Active adhesive tape hives Non Drug Allergy Nov, Active Latex hives Non Drug Allergy Nov, Active ENCOUNTERS Encounter Location Date Diagnosis [place] [id number] [place] [address] 70730- 4048 Feb, [place] [id number] [place] [address] 59683- 6910 Dec, Gastroesophageal reflux disease without esophagitis K21.9 [place] [id number] [place] [address] 03225- 6206 Dec, [place] [id number] [place] [address] 39312- 8829 Dec, Skin lesion L98.9 and Skin tags, multiple acquired L91.8 [place] [id number] [place] [address] 12214- 6970 Nov, Encounter for well woman exam without gynecological exam Z00.00 ; Metabolic syndrome E88.81 ; Crohns disease without complication, unspecified gastrointestinal tract location K50.90 ; Dyslipidemia E78.5 ; BMI 50.0-59.9, adult Z68.43 ; Abscess, dental K04.7 and Screening breast examination Z12.31 [place] [id number] [place] [address] 09556- 2435 October, Sleep apnea, unspecified type G47.30 [place] [id number] [place] [address] 18634- 8137 Sep, Diverticulitis K57.92 and BMI 50.0-59.9, adult Z68.43 [place] [id number] [place] [address] 57344- 1657 Sep, [place] [id number] [place] [address] 85360- 0057 Sep, [place] [id number] [place] [address] 12914- 2703 Aug, [place] [address] 64783- 7495 Jul, Dental examination Z01.20 [place] [address] 26836- 9727 Jul, Polycystic ovarian syndrome E28.2 ; Nipple discharge N64.52 ; Mild persistent asthma without complication J45.30 ; Seasonal allergic rhinitis due to pollen J30.1 ; Abscess, dental K04.7 ; Nausea and vomiting in adult R11.2 and Body mass index (BMI) of 50-59.9 in adult Z68.43 [place] [id number] [place] [address] 05931- 1383 14 May, [address] 31513- 7620 11 May, 2017 Metabolic syndrome E88.81 ; Dyslipidemia E78.5 and Morbid obesity due to excess calories E66.[address] 74784- 1287 08 May, 2017 Metabolic syndrome E88.81 ; Dyslipidemia E78.5 ; Morbid obesity due to excess calories E66.01 ; Mild persistent asthma without complication J45.30 ; Crohns disease without complication, unspecified gastrointestinal tract location K50.90 ; Daytime sleepiness R40.0 and Snoring R06.83 [place] [id number] [place] [address] 98308- 3968 16 Apr, 2017 Peroneal tendinitis of right lower extremity M76.[address] 75083- 8718 18 Mar, 2017 [place] [id number] [place] [address] 87522- 4521 10 Mar, 2017 Mood disorder F39 ; Anxiety F41.9 ; [...] right foot M25.571 and Metabolic syndrome E88.81 [place] [address] 19084- 6778 Mar, [place] [address] 38398- 8818 Mar, [place] [address] 64781- 5665 Mar, [place] [id number] [place] [address] 20393- 8100 Feb, [place] [address] 36702- 4981 Feb, Anxiety F41.9 ; Mood disorder F39 and Morbid (severe) obesity due to excess calories E66.01 [place] [id number] [place] [address] 84621- 5842 Feb, [place] [id number] [place] [address] 37212- 8111 Feb, [place] [address] 30466- 9435 Feb, [place] [id number] [place] [address] 18838- 1897 Feb, Acute right ankle pain M25.571 ; Eczema, unspecified type L30.9 ; Hair loss L65.9 ; Polycystic ovarian syndrome E28.2 ; Body mass index ( BMI) of 50-59.9 in adult Z68.43 and Morbid (severe) obesity due to excess calories E66.01 [place] [address] [address] Nov, [place] [id number] [place] [address] 86138- 5466 October, [place] [id number] [place] [address] 41474- 6092 Jul, [place] [id number] [place] [address] 86008- 4591 Jul, Enteropathic arthropathies, 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 PLAN OF CARE Activity Details Follow Up 3 Months, prn Reason:chm/metabolic syndrome VITAL SIGNS Height 5 ft 3.5 in in 2017-12-06 Weight 299.6 lbs 2017-12-06 Temperature 97.9 degrees Fahrenheit 2017-12-06 Heart Rate 100 bpm 2017-12-06 Respiratory Rate 22 2017-12-06 BMI 52.23 kg/m2 2017-12-06 Blood pressure systolic 120 mmHg 2017-12-06 Blood pressure diastolic 75 mmHg 2017-12-06 MEDICATIONS Medication Instructions Dosage Frequency Start Date End Date Duration Status Ondansetron 4 MG Orally every 8 hrs 1 tablet on the tongue and allow to dissolve 8h May, 30 day(s) Active Magic Mouthwash Apply medicated swab to sore areas of the mouth to numb the pain As needed 5ml swish and spit, Dip cotton swab into medication Aug, Dec, 10 days Active Albuterol Sulfate HFA 108 (90 Base) MCG/ACT Inhalation every 4 hrs 2 puffs as needed 4h 12 months Active Flonase 50 MCG/ACT Nasally Once a day 1 spray in each nostril 24h 90 days Active Cyclobenzaprine HCl 10 mg Orally Three times a day 1 tablet 8h Nov, 90 days Active Saphris 2.5 MG Sublingual Once a day 1 tablets under the tongue and allow to dissolve 24h Active Dicyclomine HCl 20 mg Orally 4 times a day prn 1 capsule Aug, 90 days Active Wellbutrin XL 150 MG Orally twice a day 1 tablet 12h Active Prednisone Active Rexulti Active Doxycycline Active MetFORMIN HCl ER 500 mg Orally Once a day 1 tablet with evening meal 24h Jul, 30 day(s) Active Trileptal 300 MG Orally 2 tablets in afternoon and 3 tablets in evening 3 tablets in the morning 90 days Active Albuterol Sulfate (2.5 MG/3ML) 0.083% Inhalation Three times a day 3 ml 8h Mar, 90 days Active Saphris 10 mg Sublingual Once a day 1 tablet under the tongue and allow to dissolve 24h Active Tramadol HCl 50 mg Orally every 6 hrs 1 tablet as needed 6h Mar, Dec, 28 days Active Atorvastatin Calcium 20 mg Orally Once a day at bedtime 1 tablet Feb, 90 days Active Pantoprazole Sodium 40 mg Orally Once a day 1 tablet 24h 90 days Active RESULTS Name Result Date Reference Range Mammogram, Bilateral Screening 2017-12-18 PROCEDURES No Known procedures INSTRUCTIONS MEDICATIONS ADMINISTERED [...]
--- OUTSIDE RECORDS SUMMARY | 2018-08-17 07:38 | XMS REPORT ---
Author Author BRYSON SHEPHERD Organization [facility] Address [address] [place] [address] Care Team Providers Care Assistant Buyer Name Role Phone JOAO BRYSON Unavailable PROBLEMS Type Condition ICD9-CM Code BOS93-XG Code Onset Dates Condition Status SNOMED Code Problem Body mass index (BMI) of 50-59.9 in adult Z68.43 Active 394745576 Problem Polycystic ovarian syndrome E28.2 Active 69611299 Problem Morbid (severe) obesity due to excess calories E66.01 Active 997858810 Problem BMI 50.0-59.9, adult Z68.43 Active 377838593 Problem Environmental allergies Z91.09 Active 111832757 Problem Sleep apnea, unspecified type G47.30 Active 90678750 Problem Mood disorder F39 Active 89177247 Problem Hypersomnia G47.10 Active 73998781 Problem Daytime sleepiness R40.0 Active 504908203142 Problem Dyslipidemia E78.5 Active 671547102 Problem Diverticulitis K57.92 Active 869809747 Problem Seasonal allergic rhinitis due to pollen J30.1 Active 12652793 Problem Simple chronic bronchitis J41.0 Active 66537635 Problem Mild persistent asthma without complication J45.30 Active 718903035 Problem Anxiety F41.9 Active 23985458 Problem Enteropathic arthropathies, 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 Active 7100815 Problem Morbid obesity due to excess calories E66.01 Active 538695268 Problem Swelling of multiple joints M25.40 Active 61411248 Problem Nausea and vomiting in adult R11.2 Active 46374311 Problem Gastroesophageal reflux disease without esophagitis K21.9 Active 633272347 Problem Crohns disease without complication, unspecified gastrointestinal tract location K50.90 Active 17604432 Problem Metabolic syndrome E88.81 Active 660135031 Problem Bulging lumbar disc M51.26 Active 876545293 Problem Eczema, unspecified type L30.9 Active 92424691 ALLERGIES Substance Reaction Event Type Date Status Phenergan rash Drug Allergy Dec, Active Pepto-Bismol vomiting Drug Allergy Dec, Active Demerol anaphylaxis Drug Allergy Dec, Active BusPIRone HCl anaphylaxis Drug Allergy Dec, Active Abilify anaphylaxis Drug Allergy Dec, Active adhesive tape hives Non Drug Allergy Dec, Active Latex hives Non Drug Allergy Dec, Active ENCOUNTERS Encounter Location Date Diagnosis [place] [id number] [place] [address] 23273- 5381 Feb, [place] [id number] [place] [address] 35332- 7474 Dec, Gastroesophageal reflux disease without esophagitis K21.9 [place] [id number] [place] [address] 37954- 9599 Dec, [place] [id number] [place] [address] 59392- 3909 Dec, Skin lesion L98.9 and Skin tags, multiple acquired L91.8 [place] [id number] [place] [address] 43729- 6874 Nov, Encounter for well woman exam without gynecological exam Z00.00 ; Metabolic syndrome E88.81 ; Crohns disease without complication, unspecified gastrointestinal tract location K50.90 ; Dyslipidemia E78.5 ; BMI 50.0-59.9, adult Z68.43 ; Abscess, dental K04.7 and Screening breast examination Z12.31 [place] [id number] [place] [address] 20720- 2022 October, Sleep apnea, unspecified type G47.30 [place] [id number] [place] [address] 87982- 9851 Sep, Diverticulitis K57.92 and BMI 50.0-59.9, adult Z68.43 [place] [id number] [place] [address] 18018- 4924 Sep, [place] [id number] [place] [address] 75288- 1415 Sep, [place] [id number] [place] [address] 77728- 6779 Aug, [place] [address] 73341- 7400 Jul, Dental examination Z01.20 [place] [address] 56483- 7441 Jul, Polycystic ovarian syndrome E28.2 ; Nipple discharge N64.52 ; Mild persistent asthma without complication J45.30 ; Seasonal allergic rhinitis due to pollen J30.1 ; Abscess, dental K04.7 ; Nausea and vomiting in adult R11.2 and Body mass index (BMI) of 50-59.9 in adult Z68.43 [place] [id number] [place] [address] 02638- 1981 14 May, [address] 66248- 9569 11 May, 2017 Metabolic syndrome E88.81 ; Dyslipidemia E78.5 and Morbid obesity due to excess calories E66.[address] 64387- 7020 08 May, 2017 Metabolic syndrome E88.81 ; Dyslipidemia E78.5 ; Morbid obesity due to excess calories E66.01 ; Mild persistent asthma without complication J45.30 ; Crohns disease without complication, unspecified gastrointestinal tract location K50.90 ; Daytime sleepiness R40.0 and Snoring R06.83 [place] [id number] [place] [address] 59498- 8207 16 Apr, 2017 Peroneal tendinitis of right lower extremity M76.[address] 17493- 0976 18 Mar, 2017 [place] [id number] [place] [address] 97356- 3851 10 Mar, 2017 Mood disorder F39 ; [...] right foot M25.571 and Metabolic syndrome E88.81 [place] [address] 27116- 6352 Mar, [place] [address] 85308- 4931 Mar, [place] [address] 00601- 5089 Mar, [place] [id number] [place] [address] 96870- 8957 Feb, [place] [address] 32653- 1039 Feb, Anxiety F41.9 ; Mood disorder F39 and Morbid (severe) obesity due to excess calories E66.01 [place] [id number] [place] [address] 95038- 3391 Feb, [place] [id number] [place] [address] 48466- 1580 Feb, [place] [address] 01634- 1435 Feb, [place] [id number] [place] [address] 08552- 9808 Feb, Acute right ankle pain M25.571 ; Eczema, unspecified type L30.9 ; Hair loss L65.9 ; Polycystic ovarian syndrome E28.2 ; Body mass index ( BMI) of 50-59.9 in adult Z68.43 and Morbid (severe) obesity due to excess calories E66.01 [place] [address] [address] 8313 Nov, [place] [id number] [place] [address] 21473- 6411 October, [place] [id number] [place] [address] 20305- 3476 Jul, [place] [id number] [place] [address] 43220- 3575 Jul, Enteropathic arthropathies, 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 and Gastroesophageal reflux disease without esophagitis K21.9 [place] [address] [place] [address] 53837- 4878 18 Apr, 2016 Mood disorder F39 ; [...] Morbid obesity due to excess calories E66.01 [place] [address] [place] [address] 05341- 9247 08 Apr, 2016 IMMUNIZATIONS No Known Immunizations SOCIAL HISTORY Never Assessed REASON FOR VISIT Mole Removal----DBennettRN PLAN OF CARE Activity Details Follow Up prn, 3 Months Reason:for CHM Future/Pending Procedure SKIN TAG REM 1-15 Future/Pending Procedure BIOPSY SKIN LESION (SINGLE) VITAL SIGNS Height 5 ft 3.5 in in 2017-12-17 Weight 301 lbs 2017-12-17 Temperature 98.7 degrees Fahrenheit 2017-12-17 Heart Rate 90 bpm 2017-12-17 Respiratory Rate 20 2017-12-17 BMI 52.48 kg/m2 2017-12-17 Blood pressure systolic 128 mmHg 2017-12-17 Blood pressure diastolic 82 mmHg 2017-12-17 MEDICATIONS Medication Instructions Dosage Frequency Start Date End Date Duration Status Saphris 2.5 MG Sublingual Once a day 1 tablets under the tongue and allow to dissolve 24h Active Rexulti Active Atorvastatin Calcium 20 mg Orally Once a day at bedtime 1 tablet Feb, 90 days Active Saphris 10 mg Sublingual Once a day 1 tablet under the tongue and allow to dissolve 24h Active Prednisone Active Pantoprazole Sodium 40 mg Orally Once a day 1 tablet 24h 90 days Active Magic Mouthwash Apply medicated swab to sore areas of the mouth to numb the pain As needed 5ml swish and spit, Dip cotton swab into medication Aug, Dec, 10 days Active Cyclobenzaprine HCl 10 mg Orally Three times a day 1 tablet 8h Nov, 90 days Active Ondansetron 4 MG Orally every 8 hrs 1 tablet on the tongue and allow to dissolve 8h May, 30 day(s) Active Flonase 50 MCG/ACT Nasally Once a day 1 spray in each nostril 24h 90 days Active Albuterol Sulfate (2.5 MG/3ML) 0.083% Inhalation Three times a day 3 ml 8h Mar, 90 days Active Trileptal 300 MG Orally 2 tablets in afternoon and 3 tablets in evening 3 tablets in the morning 90 days Active Dicyclomine HCl 20 mg Orally 4 times a day prn 1 capsule Aug, 90 days Active Albuterol Sulfate HFA 108 (90 Base) MCG/ACT Inhalation every 4 hrs 2 puffs as needed 4h 12 months Active MetFORMIN HCl ER 500 mg Orally Once a day 1 tablet with evening meal 24h Jul, 30 day(s) Active Doxycycline Active Wellbutrin XL 150 MG Orally twice a day 1 tablet 12h Active Tramadol HCl 50 mg Orally every 6 hrs 1 tablet as needed 6h Mar, Dec, 28 days Active RESULTS No Results PROCEDURES Procedure Date Ordered Result Body Site BIOPSY OF SKIN LESION December 17, 2017 REMOVAL OF SKIN TAGS December 17, 2017 INSTRUCTIONS MEDICATIONS ADMINISTERED No Known Medications MEDICAL [...]
--- OUTSIDE RECORDS SUMMARY | 2018-08-17 07:38 | XMS REPORT ---
Author Author BRYSON SHEPHERD Organization [facility] Address [address] [place] [address] Care Team Providers Care Equities Trader Name Role Phone JOAO BRYSON Unavailable PROBLEMS Type Condition ICD9-CM Code [id number] Code Onset Dates Condition Status SNOMED Code Problem Body mass index (BMI) of 50-59.9 in adult Z68.43 Active 413976526 Problem Polycystic ovarian syndrome E28.2 Active 71084770 Problem Morbid (severe) obesity due to excess calories E66.01 Active 742243022 Problem BMI 50.0-59.9, adult Z68.43 Active 558932023 Problem Environmental allergies Z91.09 Active 115291885 Problem Sleep apnea, unspecified type G47.30 Active 88120144 Problem Mood disorder F39 Active 54277607 Problem Hypersomnia G47.10 Active 06280976 Problem Daytime sleepiness R40.0 Active 228182459431 Problem Dyslipidemia E78.5 Active 693721383 Problem Diverticulitis K57.92 Active 693647758 Problem Seasonal allergic rhinitis due to pollen J30.1 Active 35357689 Problem Simple chronic bronchitis J41.0 Active 72667827 Problem Mild persistent asthma without complication J45.30 Active 089481171 Problem Anxiety F41.9 Active 31818313 Problem Enteropathic arthropathies, 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 Active 1662476 Problem Morbid obesity due to excess calories E66.01 Active 448907512 Problem Swelling of multiple joints M25.40 Active 84270032 Problem Nausea and vomiting in adult R11.2 Active 83283038 Problem Gastroesophageal reflux disease without esophagitis K21.9 Active 294734727 Problem Crohns disease without complication, unspecified gastrointestinal tract location K50.90 Active 77789249 Problem Metabolic syndrome E88.81 Active 052828840 Problem Bulging lumbar disc M51.26 Active 151344841 Problem Eczema, unspecified type L30.9 Active 31477440 ALLERGIES Substance Reaction Event Type Date Status Phenergan rash Drug Allergy Sep, Active Pepto-Bismol vomiting Drug Allergy Sep, Active Demerol anaphylaxis Drug Allergy Sep, Active BusPIRone HCl anaphylaxis Drug Allergy Sep, Active Abilify anaphylaxis Drug Allergy Sep, Active adhesive tape hives Non Drug Allergy Sep, Active Latex hives Non Drug Allergy Sep, Active ENCOUNTERS Encounter Location Date Diagnosis [place] [address] [place] [id number] [place] [address] 86516- [address]378 Dec, Gastroesophageal reflux disease without esophagitis K21.9 [place] [address] [place] [id number] [place] [address] 02293- 6752 Dec, [place] [address] [address] Dec, Skin lesion L98.9 and Skin tags, multiple acquired L91.8 [place] [address] 10[address]- 8647 Nov, Encounter for well woman exam without gynecological exam Z00.00 ; Metabolic syndrome E88.81 ; Crohns disease without complication, unspecified gastrointestinal tract location K50.90 ; Dyslipidemia E78.5 ; BMI 50.0-59.9, adult Z68.43 ; Abscess, dental K04.7 and Screening breast examination Z12.31 [place] [address] [place] [id number] [place] [address] 59487- 9216 October, Sleep apnea, unspecified type G47.30 [place] [address] [place] [id number] [place] [address] 17063- 2245 Sep, Diverticulitis K57.92 and BMI 50.0-59.9, adult Z68.43 [place] [address] [place] [id number] [place] [address] 44744- 8919 Sep, [place] [address] [place] [id number] [place] [address] 16202- 3723 Sep, [place] [address] [place] [id number] [place] [address] 22514- 5667 Aug, [place] [address] [place] [id number] [place] [address] 88001- 4711 Jul, Dental examination Z01.20 [place] [address] [place] [id number] [place] [address] 38307- 6886 Jul, Polycystic ovarian syndrome E28.2 ; Nipple discharge N64.52 ; Mild persistent asthma without complication J45.30 ; Seasonal allergic rhinitis due to pollen J30.1 ; Abscess, dental K04.7 ; Nausea and vomiting in adult R11.2 and Body mass index (BMI) of 50-59.9 in adult Z68.[address] [address]- [address] 14 May, [address] 49789- 0[address] 11 May, 2017 Metabolic syndrome E88.81 ; Dyslipidemia E78.5 and Morbid obesity due to excess calories E66.[address] 44189- 8826 08 May, 2017 Metabolic syndrome E88.81 ; Dyslipidemia E78.5 ; Morbid obesity due to excess calories E66.01 ; Mild persistent asthma without complication J45.30 ; Crohns disease without complication, unspecified gastrointestinal tract location K50.90 ; Daytime sleepiness R40.0 and Snoring R06.83 [place] [id number] [place] [address] 49158- 8374 Apr, Peroneal tendinitis of right lower extremity M76.[address] 6[address]13- 8144 Mar, [address] 9[address]86- 9675 Mar, Mood disorder F39 ; Anxiety F41.9 [...] right foot M25.571 and Metabolic syndrome E88.81 [place] [address] [place] [id number] [place] [address] 42459- 5463 Mar, [place] [address] [place] [id number] [place] [address] 83741- 8477 Mar, [place] [address] [place] [id number] [place] [address] 91543- 6602 Mar, [place] [address] [place] [id number] [place] [address] 18934- 6342 Feb, [place] [address] [id number] [place] [address] 33735- 7311 Feb, Anxiety F41.9 ; Mood disorder F39 and Morbid (severe) obesity due to excess calories E66.01 [place] [address] [place] [address] 46545- 4928 Feb, [place] [address] [place] [id number] [address] 3[address] Feb, [place] [address] [place] [id number] [place] [address] 71391- 9138 Feb, [place] [address] [place] [id number] [place] [address] 36597- 7791 18 Feb, 2017 Acute right ankle pain M25.571 ; Eczema, unspecified type L30.9 ; Hair loss L65.9 ; Polycystic ovarian syndrome E28.2 ; Body mass index ( BMI) of 50-59.9 in adult Z68.43 and Morbid (severe) obesity due to excess calories E66.01 [place] [address] [place] [id number] [address] Nov, [place] [address] [place] [address] October, [place] [address] [place] [address] 36[address] Jul, [place] [address] [place] [id number] [place] [address] 46996- 9446 Jul, Enteropathic arthropathies, 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 and Gastroesophageal reflux disease without esophagitis K21.9 [place] [address] [place] [id number] [place] [address] 11418- 9926 Apr, Mood disorder F39 ; Anxiety F41.9 [...] Morbid obesity due to excess calories E66.01 [place] [address], [place] [address] 7[address] 08 Apr, 2016 IMMUNIZATIONS No Known Immunizations SOCIAL HISTORY Never Assessed REASON FOR VISIT [facility] 09/25/17, severe pain LUQ, LLQ, PLAN OF CARE Activity Details Follow Up prn Reason: VITAL SIGNS Height 5 ft 3.5 in in 2017-09-25 Weight 301 lbs 2017-09-25 Temperature 98.3 degrees Fahrenheit 2017-09-25 Heart Rate 120 bpm 2017-09-25 Respiratory Rate 22 2017-09-25 BMI 52.48 kg/m2 2017-09-25 Blood pressure systolic 126 mmHg 2017-09-25 Blood pressure diastolic 84 mmHg 2017-09-25 MEDICATIONS Medication Instructions Dosage Frequency Start Date End Date Duration Status Prednisone Active Cyclobenzaprine HCl 10 mg Orally Three times a day 1 tablet 8h 5 Mar, 2018 90 days Active Metronidazole 500 mg Orally every 8 hrs 1 tablet 8h Sep, Sep, 07 days Active Wellbutrin XL 150 MG Orally twice a day 1 tablet 12h Active Trileptal 300 MG Orally 2 tablets in afternoon and 3 tablets in evening 3 tablets in the morning 90 days Active Ondansetron 4 MG Orally every 8 hrs 1 tablet on the tongue and allow to dissolve 8h May, 30 day(s) Active Saphris 2.5 MG Sublingual Once a day 1 tablets under the tongue and allow to dissolve 24h Active Saphris 10 mg Sublingual Once a day 1 tablet under the tongue and allow to dissolve 24h Active Pantoprazole Sodium 40 mg Orally Once a day 1 tablet 24h 90 days Active Dicyclomine HCl 20 mg Orally 4 times a day 1 capsule 6h 7 Dec, 2017 90 days Active Tramadol HCl 50 mg Orally every 6 hrs 1 tablet as needed 6h Mar, Mar, 90 days Active Flonase 50 MCG/ACT Nasally Once a day 1 spray in each nostril 24h 90 days Active Albuterol Sulfate HFA 108 (90 Base) MCG/ACT Inhalation every 4 hrs 2 puffs as needed 4h 12 months Active Ciprofloxacin HCl 500 mg Orally twice a day 1 tablet 12h Sep, Sep, 07 days Active Magic Mouthwash Apply medicated swab to sore areas of the mouth to numb the pain As needed 5ml swish and spit, Dip cotton swab into medication Aug, Active MetFORMIN HCl ER 500 mg Orally Once a day 1 tablet with evening meal 24h Jul, 30 day(s) Active Albuterol Sulfate (2.5 MG/3ML) 0.083% Inhalation Three times a day 3 ml 8h Mar, 90 days Active Atorvastatin Calcium 20 mg Orally Once a day at bedtime 1 tablet Feb, 90 days Active RESULTS No Results PROCEDURES [...]
--- OUTSIDE RECORDS SUMMARY | 2018-08-17 07:39 | XMS REPORT ---
Author Author BRYSON SHEPHERD Organization [facility] Address [address] [place] [address] Care Team Providers Care Harness And Bag Inspector Name Role Phone JOAO BRYSON Unavailable PROBLEMS Type Condition ICD9-CM Code [id number] Code Onset Dates Condition Status SNOMED Code Problem Body mass index (BMI) of 50-59.9 in adult Z68.43 Active 174886144 Problem Polycystic ovarian syndrome E28.2 Active 48160149 Problem Morbid (severe) obesity due to excess calories E66.01 Active 201681455 Problem BMI 50.0-59.9, adult Z68.43 Active 527552979 Problem Environmental allergies Z91.09 Active 046590482 Problem Sleep apnea, unspecified type G47.30 Active 83097701 Problem Mood disorder F39 Active 18350552 Problem Hypersomnia G47.10 Active 43401688 Problem Daytime sleepiness R40.0 Active 090502250653 Problem Dyslipidemia E78.5 Active 698101542 Problem Diverticulitis K57.92 Active 850844937 Problem Seasonal allergic rhinitis due to pollen J30.1 Active 35226809 Problem Simple chronic bronchitis J41.0 Active 92991538 Problem Mild persistent asthma without complication J45.30 Active 840872771 Problem Anxiety F41.9 Active 31521638 Problem Enteropathic arthropathies, 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 Active 9005834 Problem Morbid obesity due to excess calories E66.01 Active 623679884 Problem Swelling of multiple joints M25.40 Active 81193540 Problem Nausea and vomiting in adult R11.2 Active 71556146 Problem Gastroesophageal reflux disease without esophagitis K21.9 Active 279962469 Problem Crohns disease without complication, unspecified gastrointestinal tract location K50.90 Active 79542991 Problem Metabolic syndrome E88.81 Active 303475903 Problem Bulging lumbar disc M51.26 Active 558588301 Problem Eczema, unspecified type L30.9 Active 22285707 ALLERGIES No Information ENCOUNTERS Encounter Location Date Diagnosis [place] [address] [place] [address] [id number] [place] [address] 99144- 5718 Dec, Gastroesophageal reflux disease without esophagitis K21.9 [place] [address] [place] [address] [id number] [place] [address] 52496- 2085 Dec, [place] [address] [place] [address] [id number] [place] [address] 12533- 8431 Dec, Skin lesion L98.9 and Skin tags, multiple acquired L91.8 [place] [address] [address] [id number] [place] [address] 53880- 7498 28 Nov, 2017 Encounter for well woman exam without gynecological exam Z00.00 ; Metabolic syndrome E88.81 ; Crohns disease without complication, unspecified gastrointestinal tract location K50.90 ; Dyslipidemia E78.5 ; BMI 50.0-59.9, adult Z68.43 ; Abscess, dental K04.7 and Screening breast examination Z12.31 [place] [address] 78511- 9447 October, Sleep apnea, unspecified type G47.30 [place] [address] 63398- 9619 Sep, Diverticulitis K57.92 and BMI 50.0-59.9, adult Z68.43 [place] [address] [place] [id number] [place] [address] 48065- 7884 Sep, [place] [address] 23892- 8282 Sep, [place] [address] [place] [id number] [place] [address] 73343- 8835 Aug, [place] [address] 43191- 2523 Jul, Dental examination Z01.20 [place] [address] [address] [id number] [place] [address] 99716- 3567 Jul, Polycystic ovarian syndrome E28.2 ; Nipple discharge N64.52 ; Mild persistent asthma without complication J45.30 ; Seasonal allergic rhinitis due to pollen J30.1 ; Abscess, dental K04.7 ; Nausea and vomiting in adult R11.2 and Body mass index (BMI) of 50-59.9 in adult Z68.43 [place] [id number] [place] [address] 22587- 3255 14 May, [address] 81845- 4182 11 May, 2017 Metabolic syndrome E88.81 ; Dyslipidemia E78.5 and Morbid obesity due to excess calories E66.[address] 73024- 0704 08 May, 2017 Metabolic syndrome E88.81 ; Dyslipidemia E78.5 ; Morbid obesity due to excess calories E66.01 ; Mild persistent asthma without complication J45.30 ; Crohns disease without complication, unspecified gastrointestinal tract location K50.90 ; Daytime sleepiness R40.0 and Snoring R06.[address] 77978- 4854 16 Apr, 2017 Peroneal tendinitis of right lower extremity M76.[address] 88260- 0880 18 Mar, [address] 10515- 9492 Mar, Mood disorder F39 ; Anxiety F41.9 [...] right foot M25.571 and Metabolic syndrome E88.81 [facility] [address] [id number] [place] [address] 43139- 6808 Mar, [facility] [address] [address] [id number] [place] [address] 73952- 5093 Mar, [facility] [address] [place] [address] [id number] [place] [address] 67515- 3365 Mar, [facility] [address] [address] [id number] [place] [address] 54303- 3463 Feb, [place] [address] [id number] [place] [address] 07939- 2762 Feb, Anxiety F41.9 ; Mood disorder F39 and Morbid (severe) obesity due to excess calories E66.01 [place] [address] [address] [id number] [place] [address] 28815- 5878 Feb, [facility] [address] [place] [address] [id number] [place] [address] 20462- 4564 Feb, [place] [address] [address] [id number] [place] [address] 15489- 4152 Feb, [facility] [address] [place] [address] [id number] [place] [address] 25444- 7987 Feb, Acute right ankle pain M25.571 ; Eczema, unspecified type L30.9 ; Hair loss L65.9 ; Polycystic ovarian syndrome E28.2 ; Body mass index ( BMI) of 50-59.9 in adult Z68.43 and Morbid (severe) obesity due to excess calories E66.01 [facility] [address] [place] [id number] [place] [address] 67565- 2437 Nov, [facility] [address] [place] [address] [id number] [place] [address] 23829- 2698 October, [facility] [address] [address] [id number] [place] [address] 53631- 6229 Jul, [place] [address] [facility] [id number] [address] Jul, Enteropathic arthropathies, 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
--- OUTSIDE RECORDS SUMMARY | 2018-08-17 07:39 | XMS REPORT ---
Author Author santaTAINA Fierro [facility] Address [address] [place] [address] Care Team Providers Care Outside Operator Name Role Phone santaTAINA Fierro Unavailable PROBLEMS Type Condition ICD9-CM Code [id number] Code Onset Dates Condition Status SNOMED Code Problem Body mass index (BMI) of 50-59.9 in adult Z68.43 Active 455108555 Problem Polycystic ovarian syndrome E28.2 Active 07221880 Problem Morbid (severe) obesity due to excess calories E66.01 Active 424059117 Problem BMI 50.0-59.9, adult Z68.43 Active 629289949 Problem Environmental allergies Z91.09 Active 474135990 Problem Sleep apnea, unspecified type G47.30 Active 31322857 Problem Mood disorder F39 Active 17635228 Problem Hypersomnia G47.10 Active 02952058 Problem Daytime sleepiness R40.0 Active 144870828343 Problem Dyslipidemia E78.5 Active 167254816 Problem Diverticulitis K57.92 Active 323111612 Problem Seasonal allergic rhinitis due to pollen J30.1 Active 81305421 Problem Simple chronic bronchitis J41.0 Active 40883821 Problem Mild persistent asthma without complication J45.30 Active 625746134 Problem Anxiety F41.9 Active 38897758 Problem Enteropathic arthropathies, 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 Active 1694005 Problem Morbid obesity due to excess calories E66.01 Active 207369617 Problem Swelling of multiple joints M25.40 Active 22887624 Problem Nausea and vomiting in adult R11.2 Active 51247919 Problem Gastroesophageal reflux disease without esophagitis K21.9 Active 768410713 Problem Crohns disease without complication, unspecified gastrointestinal tract location K50.90 Active 35686546 Problem Metabolic syndrome E88.81 Active 950588501 Problem Bulging lumbar disc M51.26 Active 350059914 Problem Eczema, unspecified type L30.9 Active 34261703 ALLERGIES Substance Reaction Event Type Date Status Phenergan rash Drug Allergy Jul, Active Pepto-Bismol vomiting Drug Allergy Jul, Active Demerol anaphylaxis Drug Allergy Jul, Active BusPIRone HCl anaphylaxis Drug Allergy Jul, Active Abilify anaphylaxis Drug Allergy Jul, Active adhesive tape hives Non Drug Allergy Jul, Active Latex hives Non Drug Allergy Jul, Active ENCOUNTERS Encounter Location Date Diagnosis [place] [address] [address]- 9236 Dec, Skin lesion L98.9 and Skin tags, multiple acquired L91.8 [place] [address] 57319- 8760 Nov, Encounter for well woman exam without gynecological exam Z00.00 ; Metabolic syndrome E88.81 ; Crohns disease without complication, unspecified gastrointestinal tract location K50.90 ; Dyslipidemia E78.5 ; BMI 50.0-59.9, adult Z68.43 ; Abscess, dental K04.7 and Screening breast examination Z12.31 [place] [address] 18004- 7028 October, Sleep apnea, unspecified type G47.30 [place] [address] 51199- 0634 Sep, Diverticulitis K57.92 and BMI 50.0-59.9, adult Z68.43 [place] [address] [place] [id number] [place] [address] 94563- 1958 Sep, [place] [address] 47890- 4488 Sep, [place] [address] 19634- 6952 Aug, [place] [address] 86399- 3762 Jul, Dental examination Z01.20 [place] [address] [place] [address]- 7602 Jul, Polycystic ovarian syndrome E28.2 ; Nipple discharge N64.52 ; Mild persistent asthma without complication J45.30 ; Seasonal allergic rhinitis due to pollen J30.1 ; Abscess, dental K04.7 ; Nausea and vomiting in adult R11.2 and Body mass index (BMI) of 50-59.9 in adult Z68.[address] 00194- 2017 14 May, [address] 41865- 9303 May, Metabolic syndrome E88.81 ; Dyslipidemia E78.5 and Morbid obesity due to excess calories E66.[address] 34917- 8905 08 May, 2017 Metabolic syndrome E88.81 ; Dyslipidemia E78.5 ; Morbid obesity due to excess calories E66.01 ; Mild persistent asthma without complication J45.30 ; Crohns disease without complication, unspecified gastrointestinal tract location K50.90 ; Daytime sleepiness R40.0 and Snoring R06.[address] 86473- 7777 Apr, Peroneal tendinitis of right lower extremity M76.[address] 61996- 8286 Mar, [address] 22389- 0441 Mar, Mood disorder F39 ; Anxiety F41.9 [...] right foot M25.571 and Metabolic syndrome E88.81 [place] [address] [place] [id number] [place] [address] 03326- 8364 Mar, [place] [address] 21524- 2000 Mar, [place] [address] 41950- 4826 Mar, [place] [address] 23852- 6582 Feb, [place] [address] [place] [id number] [place] [address] 95374- 4437 Feb, Anxiety F41.9 ; Mood disorder F39 and Morbid (severe) obesity due to excess calories E66.01 [place] [address] [place] [id number] [place] [address] 65018- 6902 Feb, [place] [address] 09575- 0130 Feb, [place] [address] [place] [id number] [place] [address] 67422- 3592 Feb, [place] [address] [place] [id number] [place] [address] 48674- 1462 Feb, Acute right ankle pain M25.571 ; Eczema, unspecified type L30.9 ; Hair loss L65.9 ; Polycystic ovarian syndrome E28.2 ; Body mass index ( BMI) of 50-59.9 in adult Z68.43 and Morbid (severe) obesity due to excess calories E66.01 [place] [address] [place] [id number] [place] [address] 56909- 7998 Nov, [place] [address] [place] [id number] [place] [address] 36110- 9421 October, [place] [address] [facility] [id number] [address]- 3887 Jul, [place] [address] [place] [address] 19439803- 3822 Jul, Enteropathic arthropathies, 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 from family prac PLAN OF CARE Activity Details Follow Up prn Reason:SRP VITAL SIGNS MEDICATIONS Medication Instructions Dosage Frequency Start Date End Date Duration Status Trileptal 300 MG Orally 2 tablets in afternoon and 3 tablets in evening 3 tablets in the morning 90 days Active MetFORMIN HCl ER 500 mg Orally Once a day 1 tablet with evening meal 24h Jul, 30 day(s) Active Cyclobenzaprine HCl 10 mg Orally Three times a day 1 tablet 8h Mar, 90 days Active Tramadol HCl 50 mg Orally every 6 hrs 1 tablet as needed 6h Mar, Mar, 90 days Active Saphris 10 mg Sublingual Once a day 1 tablet under the tongue and allow to dissolve 24h Active Flonase 50 MCG/ACT Nasally Once a day 1 spray in each nostril 24h 90 days Active Albuterol Sulfate (2.5 MG/3ML) 0.083% Inhalation Three times a day 3 ml 8h Mar, 90 days Active Saphris 2.5 MG Sublingual Once a day 1 tablets under the tongue and allow to dissolve 24h Active Atorvastatin Calcium 20 mg Orally Once a day at bedtime 1 tablet Feb, 90 days Active Albuterol Sulfate HFA 108 (90 Base) MCG/ACT Inhalation every 4 hrs 2 puffs as needed 4h 12 months Active Ondansetron 4 MG Orally every 8 hrs 1 tablet on the tongue and allow to dissolve 8h May, 30 day(s) Active Dicyclomine HCl 20 mg Orally 4 times a day 1 capsule 6h Dec, 90 days Active Pantoprazole Sodium 40 mg Orally Once a day 1 tablet 24h 90 days Active Magic Mouthwash Apply medicated swab to sore areas of the mouth to numb the pain 3 times a day 5 mls swish and spit 8h Jul, Aug, 14 days Active Wellbutrin XL 150 MG Orally twice a day 1 tablet 12h Active Triamcinolone Acetonide 0.5 % Externally Twice a day 1 application to affected area 12h Feb, 14 days Not-Taking RESULTS No Results PROCEDURES Procedure Date Ordered Result Body Site COMP ORAL EVALUATION - NEW/EST PT Aug 06, 2017 INTRAORL - CMPL SERIES CODE [id number] Aug 06, 2017 PANORAMIC FILM SEE ALSO CODE [id number] Aug 06, 2017 INSTRUCTIONS MEDICATIONS ADMINISTERED No Known Medications [...]
--- OUTSIDE RECORDS SUMMARY | 2018-08-17 07:39 | XMS REPORT ---
Author Author MC SOTO Organization [facility] [place] Address [address] [place] [address] Care Team Providers Care Commissary Helper Name Role Phone HU SOTOE Unavailable PROBLEMS Type Condition ICD9-CM Code IFE67-UV Code Onset Dates Condition Status SNOMED Code Problem Mild persistent asthma without complication J45.30 Active 158287896 Problem Bulging lumbar disc M51.26 Active 873907029 Problem Gastroesophageal reflux disease without esophagitis K21.9 Active 252275536 Problem Swelling of multiple joints M25.40 Active 72998332 Problem Crohns disease without complication, unspecified gastrointestinal tract location K50.90 Active 33365922 Problem Simple chronic bronchitis J41.0 Active 97052055 Problem Enteropathic arthropathies, 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 Active 7014470 Problem Mood disorder F39 Active 08358776 Problem Morbid obesity due to excess calories E66.01 Active 661469526 Problem Anxiety F41.9 Active 44445664 Problem Environmental allergies Z91.09 Active 757206247 ALLERGIES Unknown Allergies SOCIAL HISTORY No smoking Hx information available PLAN OF CARE VITAL SIGNS MEDICATIONS Unknown Medications RESULTS No Results PROCEDURES Procedure Date Ordered Related Diagnosis Body Site LUPUS PROFILE B (26365 X 2) Jul 12, 2016 LAB NOT BILLED BY [facility] Jul 12, 2016 VENIPUNCT, ROUTINE* Jul 12, 2016 RBC SED RATE, NONAUTOMATED Jul 12, 2016 IMMUNIZATIONS No Known Immunizations
--- OUTSIDE RECORDS SUMMARY | 2018-08-17 07:39 | XMS REPORT ---
Author Author FORTINO STONE Organization [facility] Address [address] [place] [address] Care Team Providers Care Management Lecturer Name Role Phone JUAREZSHANNENCELINA FORTINO Unavailable PROBLEMS Type Condition ICD9-CM Code EAF78-EX Code Onset Dates Condition Status SNOMED Code Problem Swelling of multiple joints M25.40 Active 72870382 Problem Morbid (severe) obesity due to excess calories E66.01 Active 403877174 Problem Eczema, unspecified type L30.9 Active 16002155 Problem Diverticulitis K57.92 Active 645617175 Problem Metabolic syndrome E88.81 Active 187140409 Problem Seasonal allergic rhinitis due to pollen J30.1 Active 90737293 Problem Nausea and vomiting in adult R11.2 Active 52387659 Problem Body mass index (BMI) of 50-59.9 in adult Z68.43 Active 513849792 Problem Polycystic ovarian syndrome E28.2 Active 44076318 Problem Daytime sleepiness R40.0 Active 728931746247 Problem Dyslipidemia E78.5 Active 495343716 Problem Anxiety F41.9 Active 11021454 Problem Enteropathic arthropathies, 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 Active 8631861 Problem Mood disorder F39 Active 16604072 Problem Environmental allergies Z91.09 Active 117550716 Problem Mild persistent asthma without complication J45.30 Active 327502627 Problem Gastroesophageal reflux disease without esophagitis K21.9 Active 897031716 Problem Simple chronic bronchitis J41.0 Active 41999624 Problem Bulging lumbar disc M51.26 Active 842849899 Problem Crohns disease without complication, unspecified gastrointestinal tract location K50.90 Active 80003691 Problem Morbid obesity due to excess calories E66.01 Active 790510307 ALLERGIES No Information ENCOUNTERS Encounter Location Date Diagnosis [facility] [address] [facility] [id number] [address] October, [facility] [id number] [place] [address] 78884- 9434 Sep, Diverticulitis K57.92 and BMI 50.0-59.9, adult Z68.43 [place] [id number] [place] [address] 79707- 2889 Sep, [place] [address] [address]- 9852 Sep, [place] [address] [address]- 7924 Aug, [address] [address] Jul, Dental examination Z01.[address] 6[address]- 1197 Jul, Polycystic ovarian syndrome E28.2 ; Nipple discharge N64.52 ; Mild persistent asthma without complication J45.30 ; Seasonal allergic rhinitis due to pollen J30.1 ; Abscess, dental K04.7 ; Nausea and vomiting in adult R11.2 and Body mass index (BMI) of 50-59.9 in adult Z68.43 [place] [id number] [place] [address] 60376- 9769 14 May, 2017 [place] [id number] [place] [address] 08241- 3698 May, Metabolic syndrome E88.81 ; Dyslipidemia E78.5 and Morbid obesity due to excess calories E66.01 [place] [id number] [place] [address] 05510- 0231 08 May, 2017 Metabolic syndrome E88.81 ; Dyslipidemia E78.5 ; Morbid obesity due to excess calories E66.01 ; Mild persistent asthma without complication J45.30 ; Crohns disease without complication, unspecified gastrointestinal tract location K50.90 ; Daytime sleepiness R40.0 and Snoring R06.[address] 7[address]76- 9589 Apr, Peroneal tendinitis of right lower extremity M76.71 [place] [address] 82357- 3380 Mar, [place] [address] 37548- 8496 Mar, Mood disorder F39 ; Anxiety F41.9 [...] right foot M25.571 and Metabolic syndrome E88.81 [place] [address] 61019- 0454 Mar, [place] [address] 78234- 2795 Mar, [place] [address] 84839- 1321 Mar, [place] [address] 79901- 2076 Feb, [place] [address] 88188- 6845 Feb, Anxiety F41.9 ; Mood disorder F39 and Morbid (severe) obesity due to excess calories E66.01 [place] [address] 36738- 0150 Feb, [place] [address] 20614- 6679 Feb, [place] [id number] [place] [address] 76094- 8667 Feb, [place] [address] 07198- 8412 Feb, Acute right ankle pain M25.571 ; Eczema, unspecified type L30.9 ; Hair loss L65.9 ; Polycystic ovarian syndrome E28.2 ; Body mass index ( BMI) of 50-59.9 in adult Z68.43 and Morbid (severe) obesity due to excess calories E66.01 [place] [id number] [place] [address] 24319- 2553 Nov, [place] [address] 15411- 2842 October, [address] 76958- 9963 Jul, [place] [id number] [place] [address] 82107- 6490 Jul, Enteropathic arthropathies, 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 and Gastroesophageal reflux disease without esophagitis K21.9 [place] [id number] [place] [address] 19297- 6008 Apr, Mood disorder F39 ; Anxiety F41.9 [...] Morbid obesity due to excess calories E66.01 [place] [id number] [place] [address] 52745- 3500 Apr, IMMUNIZATIONS No Known Immunizations SOCIAL HISTORY Never Assessed REASON FOR VISIT PLAN OF CARE VITAL SIGNS MEDICATIONS Medication Instructions Dosage Frequency Start Date End Date Duration Status Atorvastatin Calcium 20 mg Orally Once a day at bedtime 1 tablet Feb, 30 day(s) Active RESULTS No Results PROCEDURES No Known procedures INSTRUCTIONS MEDICATIONS ADMINISTERED No Known Medications MEDICAL (GENERAL) HISTORY Type Description Date Medical History mood disorder Medical History treated like janette's Medical History copd Medical History tobaccoism Medical History asthma Medical History gerd Medical History allergies Surgical History partial colon removal Surgical History Hysterectomy 2013 Surgical History ovarian cysts removals Surgical History C section x 1 Surgical History D and C (numerous) Surgical History Colonoscopy (too numerous to count) Surgical History cholecystectomy Hospitalization History for colon reasons Hospitalization History asthma Hospitalization History surgeries
--- OUTSIDE RECORDS SUMMARY | 2018-08-17 07:39 | XMS REPORT ---
Author Author BRYSON SHEPHERD Organization [facility] Address [address] [place] [address] Care Team Providers Care Candy Packer Name Role Phone JOAO BRYSON Unavailable PROBLEMS Type Condition ICD9-CM Code TYV03-ML Code Onset Dates Condition Status SNOMED Code Problem Body mass index (BMI) of 50-59.9 in adult Z68.43 Active 149172076 Problem Polycystic ovarian syndrome E28.2 Active 35956198 Problem Morbid (severe) obesity due to excess calories E66.01 Active 157611847 Problem BMI 50.0-59.9, adult Z68.43 Active 410113757 Problem Environmental allergies Z91.09 Active 231057747 Problem Sleep apnea, unspecified type G47.30 Active 23127992 Problem Mood disorder F39 Active 18987804 Problem Hypersomnia G47.10 Active 10533026 Problem Daytime sleepiness R40.0 Active 204087426114 Problem Dyslipidemia E78.5 Active 705944750 Problem Diverticulitis K57.92 Active 739337487 Problem Seasonal allergic rhinitis due to pollen J30.1 Active 97005357 Problem Simple chronic bronchitis J41.0 Active 73917800 Problem Mild persistent asthma without complication J45.30 Active 684614462 Problem Anxiety F41.9 Active 80719539 Problem Enteropathic arthropathies, 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 Active 9310287 Problem Morbid obesity due to excess calories E66.01 Active 405509792 Problem Swelling of multiple joints M25.40 Active 70025880 Problem Nausea and vomiting in adult R11.2 Active 34113817 Problem Gastroesophageal reflux disease without esophagitis K21.9 Active 117874138 Problem Crohns disease without complication, unspecified gastrointestinal tract location K50.90 Active 15563689 Problem Metabolic syndrome E88.81 Active 025683689 Problem Bulging lumbar disc M51.26 Active 767599217 Problem Eczema, unspecified type L30.9 Active 59970614 ALLERGIES No Information ENCOUNTERS Encounter Location Date Diagnosis [place] [id number] [place] [address] 72504- 8643 Dec, Skin lesion L98.9 and Skin tags, multiple acquired L91.8 [place] [id number] [place] [address] 96320- 8661 28 Nov, 2017 Encounter for well woman exam without gynecological exam Z00.00 ; Metabolic syndrome E88.81 ; Crohns disease without complication, unspecified gastrointestinal tract location K50.90 ; Dyslipidemia E78.5 ; BMI 50.0-59.9, adult Z68.43 ; Abscess, dental K04.7 and Screening breast examination Z12.31 [place] [address] [address] October, Sleep apnea, unspecified type G47.30 [place] [id number] [place] [address] 61614- 5673 17 Sep, 2017 Diverticulitis K57.92 and BMI 50.0-59.9, adult Z68.43 [place] [id number] [place] [address] 46587- 5297 Sep, [place] [address] [address]157- 1927 Sep, [place] [id number] [place] [address] 06071- 0914 Aug, [place] [id number] [place] [address] 04114- 4806 Jul, Dental examination Z01.20 [place] [id number] [place] [address] 92636- 4730 Jul, Polycystic ovarian syndrome E28.2 ; Nipple discharge N64.52 ; Mild persistent asthma without complication J45.30 ; Seasonal allergic rhinitis due to pollen J30.1 ; Abscess, dental K04.7 ; Nausea and vomiting in adult R11.2 and Body mass index (BMI) of 50-59.9 in adult Z68.43 [place] [address] [place] [address] [place] [address] 52556- 0747 14 May, [address] 71228- 8749 May, Metabolic syndrome E88.81 ; Dyslipidemia E78.5 and Morbid obesity due to excess calories E66.[address] 31800- 4707 08 May, 2017 Metabolic syndrome E88.81 ; Dyslipidemia E78.5 ; Morbid obesity due to excess calories E66.01 ; Mild persistent asthma without complication J45.30 ; Crohns disease without complication, unspecified gastrointestinal tract location K50.90 ; Daytime sleepiness R40.0 and Snoring R06.[address] 64300- 9244 16 Apr, 2017 Peroneal tendinitis of right lower extremity M76.[address] 04685- 4243 Mar, [address] 01717- 7209 Mar, Mood disorder F39 ; Anxiety F41.9 [...] right foot M25.571 and Metabolic syndrome E88.[address] 97190- 6408 Mar, [address] [place] [address]245 Mar, [facility] [id number] [place] [address] 44335- 8032 Mar, [facility] [id number] [place] [address] 23490- 6466 Feb, [facility] [id number] [place] [address] 96373- 4561 Feb, Anxiety F41.9 ; Mood disorder F39 and Morbid (severe) obesity due to excess calories E66.01 [facility] [id number] [place] [address] 06914- 6719 Feb, [facility] [id number] [place] [address] 83167- 6421 Feb, [place] [id number] [place] [address] 71633- 0767 Feb, [facility] [id number] [place] [address] 86708- 3169 Feb, Acute right ankle pain M25.571 ; Eczema, unspecified type L30.9 ; Hair loss L65.9 ; Polycystic ovarian syndrome E28.2 ; Body mass index ( BMI) of 50-59.9 in adult Z68.43 and Morbid (severe) obesity due to excess calories E66.01 [place] [address] [place] [address] 37019- 6443 Nov, [facility] [id number] [place] [address] 39150- 9914 October, [facility] [id number] [place] [address] 25335- 7481 Jul, [facility] [id number] [place] [address] 85718- 7300 Jul, Enteropathic arthropathies, 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 and Gastroesophageal reflux disease without esophagitis K21.9 [facility] [id number] [address] 18 Apr, 2016 Mood disorder F39 ; [...] Morbid obesity due to excess calories E66.01 [facility] [address] [facility] [id number] [address] 08 Apr, 2016 IMMUNIZATIONS No Known Immunizations SOCIAL HISTORY Never Assessed REASON FOR VISIT Refill Request/question about referral PLAN OF CARE VITAL SIGNS MEDICATIONS Medication Instructions Dosage Frequency Start Date End Date Duration Status Magic Mouthwash Apply medicated swab to sore areas of the mouth to numb the pain As needed 5ml swish and spit, Dip cotton swab into medication Aug, Active RESULTS No Results PROCEDURES No Known [...]
--- OUTSIDE RECORDS SUMMARY | 2018-08-17 07:39 | XMS REPORT ---
Author Author BRYSON SHEPHERD Organization [facility] [place] Address [address] [place] [address] Care Team Providers Care Roofing Subcontractor Name Role Phone JOAO BRYSON Unavailable PROBLEMS Type Condition ICD9-CM Code CJR50-KP Code Onset Dates Condition Status SNOMED Code Problem Body mass index (BMI) of 50-59.9 in adult Z68.43 Active 830960975 Problem Polycystic ovarian syndrome E28.2 Active 61525085 Problem Morbid (severe) obesity due to excess calories E66.01 Active 720746206 Problem BMI 50.0-59.9, adult Z68.43 Active 541518748 Problem Environmental allergies Z91.09 Active 880242744 Problem Sleep apnea, unspecified type G47.30 Active 19869128 Problem Mood disorder F39 Active 98039944 Problem Hypersomnia G47.10 Active 61703269 Problem Daytime sleepiness R40.0 Active 032159283414 Problem Dyslipidemia E78.5 Active 235765160 Problem Diverticulitis K57.92 Active 127259828 Problem Seasonal allergic rhinitis due to pollen J30.1 Active 77384731 Problem Simple chronic bronchitis J41.0 Active 37858294 Problem Mild persistent asthma without complication J45.30 Active 610025521 Problem Anxiety F41.9 Active 50306204 Problem Enteropathic arthropathies, 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 Active 6052223 Problem Morbid obesity due to excess calories E66.01 Active 189221695 Problem Swelling of multiple joints M25.40 Active 50345708 Problem Nausea and vomiting in adult R11.2 Active 95829681 Problem Gastroesophageal reflux disease without esophagitis K21.9 Active 695920712 Problem Crohns disease without complication, unspecified gastrointestinal tract location K50.90 Active 10681279 Problem Metabolic syndrome E88.81 Active 290126256 Problem Bulging lumbar disc M51.26 Active 675526944 Problem Eczema, unspecified type L30.9 Active 14955972 ALLERGIES No Information ENCOUNTERS Encounter Location Date Diagnosis [place] [id number] [place] [address] 31727- 2260 Dec, Gastroesophageal reflux disease without esophagitis K21.9 [place] [id number] [place] [address] 61632- 5857 Dec, [place] [id number] [place] [address] 49342- 2370 Dec, Skin lesion L98.9 and Skin tags, multiple acquired L91.8 [place] [id number] [place] [address] 70992- 9802 28 Nov, 2017 Encounter for well woman exam without gynecological exam Z00.00 ; Metabolic syndrome E88.81 ; Crohns disease without complication, unspecified gastrointestinal tract location K50.90 ; Dyslipidemia E78.5 ; BMI 50.0-59.9, adult Z68.43 ; Abscess, dental K04.7 and Screening breast examination Z12.31 [place] [address] 31693- 0494 October, Sleep apnea, unspecified type G47.30 [place] [address] 60751- 6468 Sep, Diverticulitis K57.92 and BMI 50.0-59.9, adult Z68.43 [place] [id number] [place] [address] 12025- 5748 Sep, [place] [address] 02688- 3553 Sep, [place] [id number] [place] [address] 76516- 8098 Aug, [place] [address] 62994- 8362 Jul, Dental examination Z01.20 [place] [id number] [place] [address] 96780- 5229 Jul, Polycystic ovarian syndrome E28.2 ; Nipple discharge N64.52 ; Mild persistent asthma without complication J45.30 ; Seasonal allergic rhinitis due to pollen J30.1 ; Abscess, dental K04.7 ; Nausea and vomiting in adult R11.2 and Body mass index (BMI) of 50-59.9 in adult Z68.43 [place] [id number] [place] [address] 58760- 9557 14 May, [address] 48483- 9310 11 May, 2017 Metabolic syndrome E88.81 ; Dyslipidemia E78.5 and Morbid obesity due to excess calories E66.[address] 14499- 0333 08 May, 2017 Metabolic syndrome E88.81 ; Dyslipidemia E78.5 ; Morbid obesity due to excess calories E66.01 ; Mild persistent asthma without complication J45.30 ; Crohns disease without complication, unspecified gastrointestinal tract location K50.90 ; Daytime sleepiness R40.0 and Snoring R06.[address] 10861- 6860 16 Apr, 2017 Peroneal tendinitis of right lower extremity M76.[address] 92847- 2061 18 Mar, [address] 73577- 6354 Mar, Mood disorder F39 ; Anxiety F41.9 [...] right foot M25.571 and Metabolic syndrome E88.81 [facility] [place] [id number] [place] [address] 04878- 3295 Mar, [facility] [place] [id number] [place] [address] 70481- 5783 Mar, [facility] [place] [id number] [place] [address] 62626- 0867 Mar, [facility] [place] [id number] [place] [address] 33662- 0419 Feb, [place] [id number] [place] [address] 40502- 5018 Feb, Anxiety F41.9 ; Mood disorder F39 and Morbid (severe) obesity due to excess calories E66.01 [place] [id number] [place] [address] 89841- 8203 Feb, [facility] [place] [id number] [place] [address] 29314- 7111 Feb, [place] [id number] [place] [address] 29624- 3235 Feb, [facility] [place] [id number] [place] [address] 24775- 7472 Feb, Acute right ankle pain M25.571 ; Eczema, unspecified type L30.9 ; Hair loss L65.9 ; Polycystic ovarian syndrome E28.2 ; Body mass index ( BMI) of 50-59.9 in adult Z68.43 and Morbid (severe) obesity due to excess calories E66.01 [facility] [place] [id number] [place] [address] 92220- 4211 Nov, [facility] [place] [id number] [place] [address] 02188- 5684 October, [facility] [place] [id number] [place] [address] 48660- 8136 Jul, [place] [address] [facility] [id number] [address]- 4[address] Jul, Enteropathic arthropathies, 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
--- OUTSIDE RECORDS SUMMARY | 2018-08-17 07:40 | XMS REPORT ---
Author Author JOAOMARIONBRYSON Organization [facility] Address [address] [place] [address] Care Team Providers Care Gear Cutter Name Role Phone SHEPHERDBRYSON Almazna Unavailable PROBLEMS Type Condition ICD9-CM Code [id number] Code Onset Dates Condition Status SNOMED Code Problem Eczema, unspecified type L30.9 Active 10258049 Problem Polycystic ovarian syndrome E28.2 Active 86865647 Problem Morbid (severe) obesity due to excess calories E66.01 Active 117982768 Problem Sleep apnea, unspecified type G47.30 Active 49798650 Problem Mood disorder F39 Active 20251315 Problem Diverticulitis K57.92 Active 842713339 Problem Metabolic syndrome E88.81 Active 489014952 Problem Nausea and vomiting in adult R11.2 Active 15730802 Problem Dyslipidemia E78.5 Active 476298292 Problem Body mass index (BMI) of 50-59.9 in adult Z68.43 Active 937368936 Problem Seasonal allergic rhinitis due to pollen J30.1 Active 32203030 Problem Daytime sleepiness R40.0 Active 159175106451 Problem Enteropathic arthropathies, 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 Active 1201137 Problem Simple chronic bronchitis J41.0 Active 71061898 Problem Environmental allergies Z91.09 Active 822036565 Problem Anxiety F41.9 Active 67897458 Problem Gastroesophageal reflux disease without esophagitis K21.9 Active 824556669 Problem Bulging lumbar disc M51.26 Active 160588572 Problem Crohns disease without complication, unspecified gastrointestinal tract location K50.90 Active 88082458 Problem Morbid obesity due to excess calories E66.01 Active 474956859 Problem Hypersomnia G47.10 Active 69793947 Problem Mild persistent asthma without complication J45.30 Active 842339282 Problem Swelling of multiple joints M25.40 Active 60579574 ALLERGIES Substance Reaction Event Type Date Status Phenergan rash Drug Allergy May, Active Pepto-Bismol vomiting Drug Allergy May, Active Demerol anaphylaxis Drug Allergy May, Active BusPIRone HCl Unknown Drug Allergy May, Active Abilify Unknown Drug Allergy May, Active adhesive tape hives Non Drug Allergy May, Active Latex hives Non Drug Allergy May, Active ENCOUNTERS Encounter Location Date Diagnosis [place] [address] [place] [id number] [place] [address]- 1132 Nov, [place] [address] [address] October, Sleep apnea, unspecified type G47.30 [place] [address] 15[address]- 36[address] Sep, Diverticulitis K57.92 and BMI 50.0-59.9, adult Z68.43 [place] [address] [address]- 6[address] Sep, [place] [address] 90684- 5986 Sep, [place] [address] 15[address]- 6177 Aug, [place] [address] 96294- 7856 Jul, Dental examination Z01.20 [place] [address] [place] [id number] [place] [address] 38936- 2895 Jul, Polycystic ovarian syndrome E28.2 ; Nipple discharge N64.52 ; Mild persistent asthma without complication J45.30 ; Seasonal allergic rhinitis due to pollen J30.1 ; Abscess, dental K04.7 ; Nausea and vomiting in adult R11.2 and Body mass index (BMI) of 50-59.9 in adult Z68.43 [place] [address] [place] [id number] [place] [address] 81941- 8291 May, [place] [address] 0[address] May, Metabolic syndrome E88.81 ; Dyslipidemia E78.5 and Morbid obesity due to excess calories E66.[address] [address]- [address] May, Metabolic syndrome E88.81 ; Dyslipidemia E78.5 ; Morbid obesity due to excess calories E66.01 ; Mild persistent asthma without complication J45.30 ; Crohns disease without complication, unspecified gastrointestinal tract location K50.90 ; Daytime sleepiness R40.0 and Snoring R06.[address] [address]- [address] Apr, Peroneal tendinitis of right lower extremity M76.[address] [address]- 6914 Mar, [address] 45[address]- 0475 Mar, Mood disorder F39 ; Anxiety F41.9 [...] right foot M25.571 and Metabolic syndrome E88.81 [place] [id number] [place] [address] 45836- 9727 Mar, [address] [address]- 4803 Mar, [address] 6[address]- 5[address] Mar, [place] [address] [place] [id number] [place] [address] 90982- 2704 Feb, [place] [address] 41725- 2796 Feb, Anxiety F41.9 ; Mood disorder F39 and Morbid (severe) obesity due to excess calories E66.01 [place] [address] 89183- 1051 Feb, [place] [address] [place] [id number] [place] [address] 24036- 8044 Feb, [place] [address] 40099- 6[address] Feb, [place] [address] [place] [id number] [place] [address] 51939- 4076 Feb, Acute right ankle pain M25.571 ; Eczema, unspecified type L30.9 ; Hair loss L65.9 ; Polycystic ovarian syndrome E28.2 ; Body mass index ( BMI) of 50-59.9 in adult Z68.43 and Morbid (severe) obesity due to excess calories E66.01 [place] [address] [place] [id number] [place] [address] 44045- 8060 Nov, [place] [address] [place] [id number] [place] [address] 07161- 3513 October, [place] [address] [place] [id number] [place] [address] 84064- 9663 Jul, [place] [address] [place] [id number] [place] [address] 02080- 2850 Jul, Enteropathic arthropathies, 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 and Gastroesophageal reflux disease without esophagitis K21.9 [place] [address] [place] [address] [id number] [place] [address] 57549- 3891 Apr, Mood disorder F39 ; Anxiety F41.9 [...] Morbid obesity due to excess calories E66.01 [facility] [address] [facility] [id number] [place] [address] Apr, IMMUNIZATIONS No Known Immunizations SOCIAL HISTORY Never Assessed REASON FOR VISIT Transition of Care----DBennettRN, left knee pain PLAN OF CARE Activity Details Follow Up 3 Months, prn Reason: VITAL SIGNS Height 5 ft 3.5 in in 2017-05-18 Weight 301 lbs 2017-05-18 Temperature 98.5 degrees Fahrenheit 2017-05-18 Heart Rate 90 bpm 2017-05-18 Respiratory Rate 20 2017-05-18 BMI 52.48 kg/m2 2017-05-18 Blood pressure systolic 120 mmHg 2017-05-18 Blood pressure diastolic 80 mmHg 2017-05-18 MEDICATIONS Medication Instructions Dosage Frequency Start Date End Date Duration Status Tramadol HCl 50 mg Orally every 6 hrs 1 tablet as needed 6h Mar, Mar, 90 days Active Ondansetron 4 MG Orally every 8 hrs 1 tablet on the tongue and allow to dissolve 8h May, 30 day(s) Active Dicyclomine HCl 20 mg Orally 4 times a day 1 capsule 6h 7 Dec, 2017 90 days Active Atorvastatin Calcium 20 mg Orally Once a day at bedtime 1 tablet Feb, 90 days Active Albuterol Sulfate HFA 108 (90 Base) MCG/ACT Inhalation every 4 hrs 2 puffs as needed 4h 12 months Active Pantoprazole Sodium 40 mg Orally Once a day 1 tablet 24h 90 days Active Wellbutrin XL 150 MG Orally twice a day 1 tablet 12h Active Flonase 50 MCG/ACT Nasally Once a day 1 spray in each nostril 24h 90 days Active Metformin HCl 500 mg Orally Once a day 1 tablet with meals 24h Mar, Active Albuterol Sulfate (2.5 MG/3ML) 0.083% Inhalation Three times a day 3 ml 8h Mar, 90 days Active Trileptal 300 MG Orally 2 tablets in afternoon and 3 tablets in evening 3 tablets in the morning 90 days Active PredniSONE 20 mg Orally Once a day 1 tablet 24h 8 Jun, 2017 30 days Active Cyclobenzaprine HCl 10 mg Orally Three times a day 1 tablet 8h 5 Mar, 2018 90 days Active Triamcinolone Acetonide 0.5 % Externally Twice a day 1 application to affected area 12h 18 Feb, 2017 14 days Not-Taking RESULTS No Results PROCEDURES No Known procedures INSTRUCTIONS MEDICATIONS ADMINISTERED No Known Medications MEDICAL (GENERAL) HISTORY Type Description Date Medical History mood disorder Medical History treated like chron's Medical History copd Medical History tobaccoism Medical [...]
--- OUTSIDE RECORDS SUMMARY | 2018-08-17 07:40 | XMS REPORT ---
Author Author BRYSON SHEPHERD Organization [facility] Address [address] [place] [address] Care Team Providers Care Rate Inserter Name Role Phone SHEPHERDMARION AlmazanELE Unavailable PROBLEMS Type Condition ICD9-CM Code JAX17-FF Code Onset Dates Condition Status SNOMED Code Problem Eczema, unspecified type L30.9 Active 78538247 Problem Polycystic ovarian syndrome E28.2 Active 16731271 Problem Morbid (severe) obesity due to excess calories E66.01 Active 258396367 Problem Sleep apnea, unspecified type G47.30 Active 88371906 Problem Mood disorder F39 Active 35555748 Problem Diverticulitis K57.92 Active 313310414 Problem Metabolic syndrome E88.81 Active 808415436 Problem Nausea and vomiting in adult R11.2 Active 48131158 Problem Dyslipidemia E78.5 Active 944356176 Problem Body mass index (BMI) of 50-59.9 in adult Z68.43 Active 702724820 Problem Seasonal allergic rhinitis due to pollen J30.1 Active 44747902 Problem Daytime sleepiness R40.0 Active 702722754528 Problem Enteropathic arthropathies, 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 Active 7118579 Problem Simple chronic bronchitis J41.0 Active 53966404 Problem Environmental allergies Z91.09 Active 853890243 Problem Anxiety F41.9 Active 67609808 Problem Gastroesophageal reflux disease without esophagitis K21.9 Active 046296902 Problem Bulging lumbar disc M51.26 Active 250382964 Problem Crohns disease without complication, unspecified gastrointestinal tract location K50.90 Active 92805549 Problem Morbid obesity due to excess calories E66.01 Active 856756411 Problem Hypersomnia G47.10 Active 50573595 Problem Mild persistent asthma without complication J45.30 Active 329582595 Problem Swelling of multiple joints M25.40 Active 99717100 ALLERGIES No Information ENCOUNTERS Encounter Location Date Diagnosis [facility] [address] [facility] [id number] [address] Nov, [place] [address] [place] [address] 76515- [address]39 October, Sleep apnea, unspecified type G47.30 [place] [address] [place] [id number] [place] [address] 97349- 8793 Sep, Diverticulitis K57.92 and BMI 50.0-59.9, adult Z68.43 [place] [address] [place] [id number] [place] [address] 63006- 7576 Sep, [place] [address] [place] [id number] [place] [address] 21428- 7616 Sep, [place] [address] [place] [id number] [place] [address] 83455- 0559 Aug, [place] [id number] [place] [address] 04665- 5693 Jul, Dental examination Z01.20 [place] [id number] [place] [address] 77525- 1950 Jul, Polycystic ovarian syndrome E28.2 ; Nipple discharge N64.52 ; Mild persistent asthma without complication J45.30 ; Seasonal allergic rhinitis due to pollen J30.1 ; Abscess, dental K04.7 ; Nausea and vomiting in adult R11.2 and Body mass index (BMI) of 50-59.9 in adult Z68.43 [place] [address] [place] [address] 18308- 8495 May, [place] [id number] [place] [address] 61871- 2077 May, Metabolic syndrome E88.81 ; Dyslipidemia E78.5 and Morbid obesity due to excess calories E66.01 [place] [address] [place] [address] 51781- 4881 May, Metabolic syndrome E88.81 ; Dyslipidemia E78.5 ; Morbid obesity due to excess calories E66.01 ; Mild persistent asthma without complication J45.30 ; Crohns disease without complication, unspecified gastrointestinal tract location K50.90 ; Daytime sleepiness R40.0 and Snoring R06.83 [place] [address] 22963- 1755 Apr, Peroneal tendinitis of right lower extremity M76.71 [place] [address] 32276- 6040 Mar, [place] [address] 12194- 3319 Mar, Mood disorder F39 ; Anxiety F41.9 [...] right foot M25.571 and Metabolic syndrome E88.81 [place] [address] [place] [id number] [place] [address] 53958- 2916 Mar, [place] [address] 65955- 0996 Mar, [place] [address] 80376- 2296 Mar, [place] [address] 21288- 5831 Feb, [place] [address] [place] [id number] [place] [address] 69140- 2909 Feb, Anxiety F41.9 ; Mood disorder F39 and Morbid (severe) obesity due to excess calories E66.01 [place] [address] [place] [address] 24142- 4467 Feb, [place] [address] [place] [id number] [place] [address] 51091- 4155 Feb, [place] [address] [place] [id number] [place] [address] 17658- 9624 Feb, [place] [address] 57119- 6787 Feb, Acute right ankle pain M25.571 ; Eczema, unspecified type L30.9 ; Hair loss L65.9 ; Polycystic ovarian syndrome E28.2 ; Body mass index ( BMI) of 50-59.9 in adult Z68.43 and Morbid (severe) obesity due to excess calories E66.01 [place] [address] [place] [id number] [place] [address] 65468- 2201 Nov, [place] [address] [place] [id number] [place] [address] 60524- 0015 October, [place] [address] [place] [id number] [place] [address] 83484- 5541 Jul, [place] [id number] [place] [address] 81773- 4298 Jul, Enteropathic arthropathies, 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
--- OUTSIDE RECORDS SUMMARY | 2018-08-17 07:40 | XMS REPORT ---
Author Author BRYSON SHEPHERD Organization [facility] Address [address] [place] [address] Care Team Providers Care Rn Navigator Name Role Phone SHEPHERDMARION AlmazanELE Unavailable PROBLEMS Type Condition ICD9-CM Code JKW47-US Code Onset Dates Condition Status SNOMED Code Problem Eczema, unspecified type L30.9 Active 00857951 Problem Polycystic ovarian syndrome E28.2 Active 45328590 Problem Morbid (severe) obesity due to excess calories E66.01 Active 151972473 Problem Sleep apnea, unspecified type G47.30 Active 36273219 Problem Mood disorder F39 Active 94835699 Problem Diverticulitis K57.92 Active 262079446 Problem Metabolic syndrome E88.81 Active 101909364 Problem Nausea and vomiting in adult R11.2 Active 20057338 Problem Dyslipidemia E78.5 Active 826081321 Problem Body mass index (BMI) of 50-59.9 in adult Z68.43 Active 496544217 Problem Seasonal allergic rhinitis due to pollen J30.1 Active 60269529 Problem Daytime sleepiness R40.0 Active 419297718750 Problem Enteropathic arthropathies, 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 Active 1549347 Problem Simple chronic bronchitis J41.0 Active 20248240 Problem Environmental allergies Z91.09 Active 246013462 Problem Anxiety F41.9 Active 28269383 Problem Gastroesophageal reflux disease without esophagitis K21.9 Active 211937690 Problem Bulging lumbar disc M51.26 Active 339135911 Problem Crohns disease without complication, unspecified gastrointestinal tract location K50.90 Active 82278708 Problem Morbid obesity due to excess calories E66.01 Active 426783103 Problem Hypersomnia G47.10 Active 30389104 Problem Mild persistent asthma without complication J45.30 Active 249434478 Problem Swelling of multiple joints M25.40 Active 96877424 ALLERGIES No Information ENCOUNTERS Encounter Location Date Diagnosis [facility] [address] [facility] [id number] [address] Nov, [place] [address] [place] [address] 76345- 5776 October, Sleep apnea, unspecified type G47.30 [place] [address] [place] [id number] [place] [address] 60598- 5897 Sep, Diverticulitis K57.92 and BMI 50.0-59.9, adult Z68.43 [place] [address] [place] [id number] [place] [address] 06787- 5676 Sep, [place] [address] [place] [id number] [place] [address] 63825- 0196 Sep, [place] [address] [place] [id number] [place] [address] 66154- 6853 Aug, [place] [id number] [place] [address] 95104- 2831 Jul, Dental examination Z01.20 [place] [id number] [place] [address] 05096- 3896 Jul, Polycystic ovarian syndrome E28.2 ; Nipple discharge N64.52 ; Mild persistent asthma without complication J45.30 ; Seasonal allergic rhinitis due to pollen J30.1 ; Abscess, dental K04.7 ; Nausea and vomiting in adult R11.2 and Body mass index (BMI) of 50-59.9 in adult Z68.43 [place] [address] [place] [address] 15826- 3776 May, [place] [id number] [place] [address] 83534- 0503 May, Metabolic syndrome E88.81 ; Dyslipidemia E78.5 and Morbid obesity due to excess calories E66.01 [place] [address] [place] [address] 92121- 6235 May, Metabolic syndrome E88.81 ; Dyslipidemia E78.5 ; Morbid obesity due to excess calories E66.01 ; Mild persistent asthma without complication J45.30 ; Crohns disease without complication, unspecified gastrointestinal tract location K50.90 ; Daytime sleepiness R40.0 and Snoring R06.83 [place] [address] 04727- 7560 Apr, Peroneal tendinitis of right lower extremity M76.71 [place] [address] 27354- 1180 Mar, [place] [address] 97977- 0910 Mar, Mood disorder F39 ; Anxiety F41.9 [...] right foot M25.571 and Metabolic syndrome E88.81 [place] [address] [place] [id number] [place] [address] 56133- 1717 Mar, [place] [address] 87302- 5246 Mar, [place] [address] 44079- 0376 Mar, [place] [address] 81048- 0518 Feb, [place] [address] [place] [id number] [place] [address] 11618- 7593 Feb, Anxiety F41.9 ; Mood disorder F39 and Morbid (severe) obesity due to excess calories E66.01 [place] [address] [place] [address] 00313- 9168 Feb, [place] [address] [place] [id number] [place] [address] 11313- 7898 Feb, [place] [address] [place] [id number] [place] [address] 03836- 9421 Feb, [place] [address] 46256- 9091 Feb, Acute right ankle pain M25.571 ; Eczema, unspecified type L30.9 ; Hair loss L65.9 ; Polycystic ovarian syndrome E28.2 ; Body mass index ( BMI) of 50-59.9 in adult Z68.43 and Morbid (severe) obesity due to excess calories E66.01 [place] [address] [place] [id number] [place] [address] 87334- 8455 Nov, [place] [address] [place] [id number] [place] [address] 39250- 1300 October, [place] [address] [place] [id number] [place] [address] 07515- 0421 Jul, [place] [id number] [place] [address] 08269- 8259 Jul, Enteropathic arthropathies, 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 and Gastroesophageal reflux disease without esophagitis K21.9 [place] [id number] [place] [address] 89843- 7181 Apr, Mood disorder F39 ; Anxiety F41.9 [...] due to excess calories E66.01 [place] [address] [place] [id number] [place] [address] [place] [address]- 2035 Apr, IMMUNIZATIONS No Known Immunizations SOCIAL HISTORY Never Assessed REASON FOR VISIT Lab (walk-in) PLAN OF CARE VITAL SIGNS MEDICATIONS Unknown Medications RESULTS No Results PROCEDURES Procedure Date Ordered Result Body Site [facility] May 21, 2017 VENKAREL, ROUTINE* May 21, 2017 INSTRUCTIONS MEDICATIONS ADMINISTERED No Known Medications [...]
--- OUTSIDE RECORDS SUMMARY | 2018-08-17 07:40 | XMS REPORT ---
Author MC Acosta [facility] e[employer] Address Unknown Phone Unavailable Care Team Providers Care Supervisor Park Workers Name Role Phone MC SOTO CP Unavailable Allergies, Adverse Reactions, Alerts Substance Reaction Event Type Phenergan rash Drug Allergy Pepto-Bismol vomiting Drug Allergy Demerol anaphylaxis Drug Allergy adhesive tape hives Non Drug Allergy Latex hives Non Drug Allergy Problems Problem Type Condition Code Onset Dates Condition Status Problem Crohns disease without complication, unspecified gastrointestinal tract location K50.90 Active Problem Simple chronic bronchitis J41.0 Active Problem Enteropathic arthropathies, 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 Active Problem Anxiety F41.9 Active Assessment Crohns disease without complication, unspecified gastrointestinal tract location K50.90 Active Problem Environmental allergies Z91.09 Active Assessment Morbid obesity due to excess calories E66.01 Active Problem Mood disorder F39 Active Problem Swelling of multiple joints M25.40 Active Problem Mild persistent asthma without complication J45.30 Active Problem Gastroesophageal reflux disease without esophagitis K21.9 Active Problem Bulging lumbar disc M51.26 Active Assessment Mild persistent asthma without complication J45.30 Active Assessment Swelling of multiple joints M25.40 Active Assessment Enteropathic arthropathies, 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 Active Assessment Simple chronic bronchitis J41.0 Active Assessment Environmental allergies Z91.09 Active Assessment Anxiety F41.9 Active Assessment Bulging lumbar disc M51.26 Active Assessment Mood disorder F39 Active Assessment Gastroesophageal reflux disease without esophagitis K21.9 Active Problem Morbid obesity due to excess calories E66.01 Active Medications Medication Code System Code Instructions Start Date End Date Status Dosage Tramadol HCl [facility] [address]-03 50 MG Orally every 6 hrs 1 tablet as needed [place] [facility] [address]-03 10-325 MG Orally every 6 hrs 1 tablet as needed Albuterol Sulfate HFA [facility] [address]-47 108 (90 Base) MCG/ACT Inhalation every 4 hrs 2 puffs as needed Trileptal [facility] [address]-16 300 MG Orally 3 times a day 2 tablets Cyclobenzaprine HCl [facility] [address]-66 10 mg Orally Three times a day 1 tablet Dicyclomine HCl [facility] [address]-35 20 mg Orally 4 times a day 1 capsule Zofran [facility] [address]-18 4 MG Orally twice a day Apr 28, 2016 1 tablet Pantoprazole Sodium [facility] [address]-56 40 mg Orally Once a day 1 tablet HydrOXYzine HCl [facility] [address]-09 25 MG Orally 2 times a day 2 tablets as needed PredniSONE [facility] [address]-27 20 MG Orally Once a day 1 tablet Flonase NDC 0 50 MCG/DOSE Nasally Once a day 1 spray in each nostril Procedures Procedure Coding System Code Date Office Visit, Est Pt., Level 4 CPT-4 00510 Apr 28, 2016 LUPUS PROFILE B (20349 X 2) CPT-4 80412 Apr 28, 2016 Vital Signs Date/Time: Apr 28, 2016 Cardiac Monitoring Heart Rate 80 bpm Weight 286.3 lbs Height 5 ft 3.5 in in BMI 49.91 Index Blood Pressure Diastolic 82 mmHg Blood Pressure Systolic 100 mmHg Results No Known Results Summary Purpose eClinicalWorks Submission
--- OUTSIDE RECORDS SUMMARY | 2018-08-17 07:40 | XMS REPORT ---
Author Author WILLIE BREWER Organization [facility] Address [address] [place] [address] Care Team Providers Care Inspector Subassemblies Name Role Phone WILLIE BREWER Unavailable PROBLEMS Type Condition ICD9-CM Code [id number] Code Onset Dates Condition Status SNOMED Code Problem Eczema, unspecified type L30.9 Active 41325205 Problem Polycystic ovarian syndrome E28.2 Active 61454112 Problem Morbid (severe) obesity due to excess calories E66.01 Active 398054167 Problem Sleep apnea, unspecified type G47.30 Active 11842032 Problem Mood disorder F39 Active 78817452 Problem Diverticulitis K57.92 Active 426785981 Problem Metabolic syndrome E88.81 Active 365564012 Problem Nausea and vomiting in adult R11.2 Active 18146466 Problem Dyslipidemia E78.5 Active 448737463 Problem Body mass index (BMI) of 50-59.9 in adult Z68.43 Active 162600378 Problem Seasonal allergic rhinitis due to pollen J30.1 Active 74704063 Problem Daytime sleepiness R40.0 Active 377169287936 Problem Enteropathic arthropathies, 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 Active 5167992 Problem Simple chronic bronchitis J41.0 Active 88544974 Problem Environmental allergies Z91.09 Active 243549767 Problem Anxiety F41.9 Active 00281517 Problem Gastroesophageal reflux disease without esophagitis K21.9 Active 989829410 Problem Bulging lumbar disc M51.26 Active 825467091 Problem Crohns disease without complication, unspecified gastrointestinal tract location K50.90 Active 36125308 Problem Morbid obesity due to excess calories E66.01 Active 889723109 Problem Hypersomnia G47.10 Active 54476333 Problem Mild persistent asthma without complication J45.30 Active 599632025 Problem Swelling of multiple joints M25.40 Active 53833597 ALLERGIES No Information ENCOUNTERS Encounter Location Date Diagnosis [facility] [id number] [address] Nov, [place] [id number] [place] [address]30- [address]573 October, Sleep apnea, unspecified type G47.30 [place] [address] [place] [id number] [place] [address] 32638- 8865 Sep, Diverticulitis K57.92 and BMI 50.0-59.9, adult Z68.43 [place] [address] [place] [id number] [place] [address] 22350- 4083 Sep, [place] [address] [place] [id number] [place] [address] 06879- 8119 Sep, [place] [address] [place] [id number] [place] [address] 80072- 6629 Aug, [place] [id number] [place] [address] 64513- 8816 Jul, Dental examination Z01.20 [place] [id number] [place] [address] 96350- 0383 Jul, Polycystic ovarian syndrome E28.2 ; Nipple discharge N64.52 ; Mild persistent asthma without complication J45.30 ; Seasonal allergic rhinitis due to pollen J30.1 ; Abscess, dental K04.7 ; Nausea and vomiting in adult R11.2 and Body mass index (BMI) of 50-59.9 in adult Z68.43 [place] [address] [place] [address] 54509- 9916 May, [place] [id number] [place] [address] 81101- 3360 May, Metabolic syndrome E88.81 ; Dyslipidemia E78.5 and Morbid obesity due to excess calories E66.01 [place] [address] [place] [address] 46752- 5177 May, Metabolic syndrome E88.81 ; Dyslipidemia E78.5 ; Morbid obesity due to excess calories E66.01 ; Mild persistent asthma without complication J45.30 ; Crohns disease without complication, unspecified gastrointestinal tract location K50.90 ; Daytime sleepiness R40.0 and Snoring R06.83 [place] [address] 9[address]40- 3[address] Apr, Peroneal tendinitis of right lower extremity M76.71 [place] [address] 79751- 3472 Mar, [place] [address] 56111- 7147 Mar, Mood disorder F39 ; Anxiety F41.9 [...] right foot M25.571 and Metabolic syndrome E88.81 [place] [address] [place] [id number] [place] [address] 27631- 6209 Mar, [place] [address] 83843- 7035 Mar, [place] [address] 17606- 0923 Mar, [place] [address] 72714- 0179 Feb, [place] [address] [place] [id number] [place] [address] 77240- 5702 Feb, Anxiety F41.9 ; Mood disorder F39 and Morbid (severe) obesity due to excess calories E66.01 [place] [address] [place] [address] 08005- 2674 Feb, [place] [address] [place] [id number] [place] [address] 09641- 1195 Feb, [place] [address] [place] [id number] [place] [address] 06609- 2746 Feb, [place] [address] 37704- 4005 Feb, Acute right ankle pain M25.571 ; Eczema, unspecified type L30.9 ; Hair loss L65.9 ; Polycystic ovarian syndrome E28.2 ; Body mass index ( BMI) of 50-59.9 in adult Z68.43 and Morbid (severe) obesity due to excess calories E66.01 [place] [address] [place] [id number] [place] [address] 36911- 9566 Nov, [place] [address] [place] [id number] [place] [address] 03718- 0704 October, [place] [address] [place] [id number] [place] [address] 81125- 6163 Jul, [place] [id number] [place] [address] 99974- 7923 Jul, Enteropathic arthropathies, 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 Consult Willie Campbell RT(R) PLAN OF CARE Activity Details Follow Up prn Reason: VITAL SIGNS MEDICATIONS Unknown Medications RESULTS Name Result Date Reference Range Xray : Ankle, Right 3 views (IN HOUSE) 2017-04-26 PROCEDURES Procedure Date Ordered Result Body Site Pneumati walking boot prefab Apr 26, 2017 X-RAY EXAM OF ANKLE Apr 26, 2017 INSTRUCTIONS MEDICATIONS ADMINISTERED No Known Medications [...]
--- OUTSIDE RECORDS SUMMARY | 2018-08-17 07:41 | XMS REPORT ---
Author Author MC SOTO Organization [facility] Address [address] [place] [address] Care Team Providers Care Customs Patrol Officer Name Role Phone MC SOTO Unavailable PROBLEMS Type Condition ICD9-CM Code AAD72-KP Code Onset Dates Condition Status SNOMED Code Problem Mild persistent asthma without complication J45.30 Active 400447916 Problem Bulging lumbar disc M51.26 Active 066546529 Problem Gastroesophageal reflux disease without esophagitis K21.9 Active 319577256 Problem Swelling of multiple joints M25.40 Active 20046504 Problem Crohns disease without complication, unspecified gastrointestinal tract location K50.90 Active 68948906 Problem Simple chronic bronchitis J41.0 Active 05254629 Problem Enteropathic arthropathies, 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
--- OUTSIDE RECORDS SUMMARY | 2018-08-17 07:41 | XMS REPORT ---
Author Author FORTINO STONE Organization [facility] Address [address] [place] [address] Care Team Providers Care Senior Litigation Paralegal Name Role Phone JUAREZSHANNENCELINA FORTINO Unavailable PROBLEMS Type Condition ICD9-CM Code [id number] Code Onset Dates Condition Status SNOMED Code Problem Swelling of multiple joints M25.40 Active 04204303 Problem Morbid (severe) obesity due to excess calories E66.01 Active 634191489 Problem Eczema, unspecified type L30.9 Active 03910374 Problem Diverticulitis K57.92 Active 863623738 Problem Metabolic syndrome E88.81 Active 978022098 Problem Seasonal allergic rhinitis due to pollen J30.1 Active 56717927 Problem Nausea and vomiting in adult R11.2 Active 91781014 Problem Body mass index (BMI) of 50-59.9 in adult Z68.43 Active 756264178 Problem Polycystic ovarian syndrome E28.2 Active 58895331 Problem Daytime sleepiness R40.0 Active 613292681130 Problem Dyslipidemia E78.5 Active 260210030 Problem Anxiety F41.9 Active 28361503 Problem Enteropathic arthropathies, 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 Active 2942434 Problem Mood disorder F39 Active 07345316 Problem Environmental allergies Z91.09 Active 793308102 Problem Mild persistent asthma without complication J45.30 Active 393458018 Problem Gastroesophageal reflux disease without esophagitis K21.9 Active 401820787 Problem Simple chronic bronchitis J41.0 Active 90302321 Problem Bulging lumbar disc M51.26 Active 486989518 Problem Crohns disease without complication, unspecified gastrointestinal tract location K50.90 Active 65123408 Problem Morbid obesity due to excess calories E66.01 Active 783523967 ALLERGIES No Information ENCOUNTERS Encounter Location Date Diagnosis [facility] [address] [facility] [id number] [address] October, [facility] [address] [place] [id number] [place] [address] 45912- 7083 Sep, Diverticulitis K57.92 and BMI 50.0-59.9, adult Z68.43 [place] [address] [place] [id number] [place] [address] 64431- 5951 Sep, [place] [address] 9[address]67- 3948 Sep, [place] [address] [address]- 4830 Aug, [address] 8[address]25- 8535 Jul, Dental examination Z01.[address] 09936- 5802 Jul, Polycystic ovarian syndrome E28.2 ; Nipple discharge N64.52 ; Mild persistent asthma without complication J45.30 ; Seasonal allergic rhinitis due to pollen J30.1 ; Abscess, dental K04.7 ; Nausea and vomiting in adult R11.2 and Body mass index (BMI) of 50-59.9 in adult Z68.43 [place] [id number] [place] [address] 95443- 0253 14 May, 2017 [place] [id number] [place] [address] 59975- 9272 May, Metabolic syndrome E88.81 ; Dyslipidemia E78.5 and Morbid obesity due to excess calories E66.01 [place] [id number] [place] [address] 18113- 0928 08 May, 2017 Metabolic syndrome E88.81 ; Dyslipidemia E78.5 ; Morbid obesity due to excess calories E66.01 ; Mild persistent asthma without complication J45.30 ; Crohns disease without complication, unspecified gastrointestinal tract location K50.90 ; Daytime sleepiness R40.0 and Snoring R06.[address] 91224- 9276 Apr, Peroneal tendinitis of right lower extremity M76.71 [place] [address] 83443- 1564 Mar, [place] [address] 07313- 4580 Mar, Mood disorder F39 ; Anxiety F41.9 [...] right foot M25.571 and Metabolic syndrome E88.81 [place] [address] 06697- 3191 Mar, [place] [address] 06526- 3460 Mar, [place] [address] 78419- 5228 Mar, [place] [address] 90945- 0050 Feb, [place] [address] 66434- 3258 Feb, Anxiety F41.9 ; Mood disorder F39 and Morbid (severe) obesity due to excess calories E66.01 [place] [address] 91352- 1887 Feb, [place] [address] 82831- 9336 Feb, [place] [address] [place] [id number] [place] [address] 45142- 1309 Feb, [place] [address] 40345- 0964 Feb, Acute right ankle pain M25.571 ; Eczema, unspecified type L30.9 ; Hair loss L65.9 ; Polycystic ovarian syndrome E28.2 ; Body mass index ( BMI) of 50-59.9 in adult Z68.43 and Morbid (severe) obesity due to excess calories E66.01 [place] [address] [place] [id number] [place] [address] 85757- 2531 Nov, [address] 95663- 3407 October, [address] 53961- 7366 Jul, [place] [id number] [place] [address] 58030- 6697 Jul, Enteropathic arthropathies, 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
--- OUTSIDE RECORDS SUMMARY | 2018-08-17 07:41 | XMS REPORT ---
Author Author FORTINO STONE Organization [facility] Address [address] [place] [address] Care Team Providers Care Emissions Testing And Repair Technician Name Role Phone JUAREZSHANNENCELINA FORTINO Unavailable PROBLEMS Type Condition ICD9-CM Code GQZ90-MV Code Onset Dates Condition Status SNOMED Code Problem Swelling of multiple joints M25.40 Active 36134062 Problem Morbid (severe) obesity due to excess calories E66.01 Active 890660035 Problem Eczema, unspecified type L30.9 Active 53942288 Problem Diverticulitis K57.92 Active 685957027 Problem Metabolic syndrome E88.81 Active 396052477 Problem Seasonal allergic rhinitis due to pollen J30.1 Active 74792507 Problem Nausea and vomiting in adult R11.2 Active 37594685 Problem Body mass index (BMI) of 50-59.9 in adult Z68.43 Active 881184396 Problem Polycystic ovarian syndrome E28.2 Active 28641421 Problem Daytime sleepiness R40.0 Active 354824769855 Problem Dyslipidemia E78.5 Active 483930501 Problem Anxiety F41.9 Active 10668836 Problem Enteropathic arthropathies, 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 Active 8912203 Problem Mood disorder F39 Active 37951809 Problem Environmental allergies Z91.09 Active 887119501 Problem Mild persistent asthma without complication J45.30 Active 463634928 Problem Gastroesophageal reflux disease without esophagitis K21.9 Active 205368615 Problem Simple chronic bronchitis J41.0 Active 74702283 Problem Bulging lumbar disc M51.26 Active 545146393 Problem Crohns disease without complication, unspecified gastrointestinal tract location K50.90 Active 40294050 Problem Morbid obesity due to excess calories E66.01 Active 302437496 ALLERGIES No Information ENCOUNTERS Encounter Location Date Diagnosis [facility] [address] [facility] [id number] [address] October, [facility] [address] [place] [id number] [place] [address] 72576- 7588 Sep, Diverticulitis K57.92 and BMI 50.0-59.9, adult Z68.43 [place] [address] [place] [id number] [place] [address] 46834- 3810 Sep, [place] [address] 58241- 8561 Sep, [place] [address] 85440- 5190 Aug, [address] 49981- [address] Jul, Dental examination Z01.[address] 07852- 6449 Jul, Polycystic ovarian syndrome E28.2 ; Nipple discharge N64.52 ; Mild persistent asthma without complication J45.30 ; Seasonal allergic rhinitis due to pollen J30.1 ; Abscess, dental K04.7 ; Nausea and vomiting in adult R11.2 and Body mass index (BMI) of 50-59.9 in adult Z68.43 [place] [id number] [place] [address] 03016- 5122 14 May, 2017 [place] [id number] [place] [address] 65473- 6188 May, Metabolic syndrome E88.81 ; Dyslipidemia E78.5 and Morbid obesity due to excess calories E66.01 [place] [id number] [place] [address] 07475- 7444 08 May, 2017 Metabolic syndrome E88.81 ; Dyslipidemia E78.5 ; Morbid obesity due to excess calories E66.01 ; Mild persistent asthma without complication J45.30 ; Crohns disease without complication, unspecified gastrointestinal tract location K50.90 ; Daytime sleepiness R40.0 and Snoring R06.[address] 25844- 3440 Apr, Peroneal tendinitis of right lower extremity M76.71 [place] [address] 61390- 1941 Mar, [place] [address] 65861- 5871 Mar, Mood disorder F39 ; Anxiety F41.9 [...] M25.571 and Metabolic syndrome E88.81 [place] [address] 46552- 5056 Mar, [place] [address] 81263- 2926 Mar, [place] [address] 67132- 6795 Mar, [place] [address] 96436- 0636 Feb, [place] [address] 96995- 3417 Feb, Anxiety F41.9 ; Mood disorder F39 and Morbid (severe) obesity due to excess calories E66.01 [place] [address] 35087- 3345 Feb, [place] [address] 10966- 4688 Feb, [place] [address] [place] [id number] [place] [address] 13033- 5908 Feb, [place] [address] 56502- 9798 Feb, Acute right ankle pain M25.571 ; Eczema, unspecified type L30.9 ; Hair loss L65.9 ; Polycystic ovarian syndrome E28.2 ; Body mass index ( BMI) of 50-59.9 in adult Z68.43 and Morbid (severe) obesity due to excess calories E66.01 [place] [address] [place] [id number] [place] [address] 51440- 8586 Nov, [address] 70147- 4038 October, [address] 18261- 6335 Jul, [place] [id number] [place] [address] 36816- 2449 Jul, Enteropathic arthropathies, 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
--- OUTSIDE RECORDS SUMMARY | 2018-08-17 07:41 | XMS REPORT ---
Author Author FORTINO STONE [facility] Address [address] [place] [address] Care Team Providers Care Technical Product Manager Name Role Phone JUAREZSHANNENCELINA FORTINO Unavailable PROBLEMS Type Condition ICD9-CM Code YQM33-OF Code Onset Dates Condition Status SNOMED Code Problem Swelling of multiple joints M25.40 Active 24462921 Problem Morbid (severe) obesity due to excess calories E66.01 Active 210484504 Problem Eczema, unspecified type L30.9 Active 58398863 Problem Diverticulitis K57.92 Active 179062583 Problem Metabolic syndrome E88.81 Active 473101057 Problem Seasonal allergic rhinitis due to pollen J30.1 Active 27493770 Problem Nausea and vomiting in adult R11.2 Active 30467206 Problem Body mass index (BMI) of 50-59.9 in adult Z68.43 Active 285880970 Problem Polycystic ovarian syndrome E28.2 Active 76931746 Problem Daytime sleepiness R40.0 Active 771362386739 Problem Dyslipidemia E78.5 Active 680019624 Problem Anxiety F41.9 Active 07457090 Problem Enteropathic arthropathies, 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 Active 1635260 Problem Mood disorder F39 Active 95184055 Problem Environmental allergies Z91.09 Active 954415344 Problem Mild persistent asthma without complication J45.30 Active 545006247 Problem Gastroesophageal reflux disease without esophagitis K21.9 Active 835209894 Problem Simple chronic bronchitis J41.0 Active 16418601 Problem Bulging lumbar disc M51.26 Active 798428916 Problem Crohns disease without complication, unspecified gastrointestinal tract location K50.90 Active 77605208 Problem Morbid obesity due to excess calories E66.01 Active 719085699 ALLERGIES Substance Reaction Event Type Date Status Phenergan rash Drug Allergy Feb, Active Pepto-Bismol vomiting Drug Allergy Feb, Active Demerol anaphylaxis Drug Allergy Feb, Active BusPIRone HCl Unknown Drug Allergy Feb, Active Abilify Unknown Drug Allergy Feb, Active adhesive tape hives Non Drug Allergy Feb, Active Latex hives Non Drug Allergy Feb, Active ENCOUNTERS Encounter Location Date Diagnosis [place] [id number] [place] [address]343- [address]873 October, [place] [id number] [place] [address] 01741- 8584 Sep, Diverticulitis K57.92 and BMI 50.0-59.9, adult Z68.43 [place] [id number] [place] [address] 04168- 6480 Sep, [place] [address] [address] Sep, [place] [address] 40410- 3415 Aug, [place] [id number] [place] [address] 93607- 4049 Jul, Dental examination Z01.20 [place] [address] 45686- 6695 Jul, Polycystic ovarian syndrome E28.2 ; Nipple discharge N64.52 ; Mild persistent asthma without complication J45.30 ; Seasonal allergic rhinitis due to pollen J30.1 ; Abscess, dental K04.7 ; Nausea and vomiting in adult R11.2 and Body mass index (BMI) of 50-59.9 in adult Z68.43 [place] [id number] [place] [address] 85626- 5278 May, [address] [address]- [address] 11 May, 2017 Metabolic syndrome E88.81 ; Dyslipidemia E78.5 and Morbid obesity due to excess calories E66.01 [place] [id number] [place] [address] 39575- 3815 08 May, 2017 Metabolic syndrome E88.81 ; Dyslipidemia E78.5 ; Morbid obesity due to excess calories E66.01 ; Mild persistent asthma without complication J45.30 ; Crohns disease without complication, unspecified gastrointestinal tract location K50.90 ; Daytime sleepiness R40.0 and Snoring R06.83 [place] [id number] [place] [address] 26403- 3556 Apr, Peroneal tendinitis of right lower extremity M76.71 [place] [address] 17049- 8254 Mar, [place] [address] 54374- 1694 Mar, Mood disorder F39 ; Anxiety F41.9 [...] right foot M25.571 and Metabolic syndrome E88.81 [place] [id number] [place] [address] 26150- 8042 Mar, [place] [id number] [place] [address] 89153- 5329 Mar, [place] [address] 73761- 8985 Mar, [place] [id number] [place] [address] 44986- 6964 Feb, [place] [id number] [place] [address] 32484- 6071 Feb, Anxiety F41.9 ; Mood disorder F39 and Morbid (severe) obesity due to excess calories E66.01 [place] [id number] [place] [address] 50185- 3232 Feb, [place] [id number] [place] [address] 29242- 0500 Feb, [place] [id number] [place] [address] 78451- 4522 Feb, [place] [id number] [place] [address] 00320- 9906 Feb, Acute right ankle pain M25.571 ; Eczema, unspecified type L30.9 ; Hair loss L65.9 ; Polycystic ovarian syndrome E28.2 ; Body mass index ( BMI) of 50-59.9 in adult Z68.43 and Morbid (severe) obesity due to excess calories E66.01 [place] [id number] [place] [address] 99180- 9686 Nov, [place] [id number] [place] [address] 77784- 8829 October, [place] [id number] [place] [address] 42095- 8077 Jul, [place] [id number] [place] [address] 41898- 0383 Jul, Enteropathic arthropathies, 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 PCP - Renita Torres , 1) Hair growth on chin, hair loss, 2) Itchy skin/rashes, 3) Half of colon was removed. C/o of cramping. , 4) Ankle pain/swelling. Hard time walking. PLAN OF CARE Activity Details Follow Up 3 Weeks Reason: VITAL SIGNS Height 5 ft 3.5 in in 2017-02-26 Weight 289 lbs 2017-02-26 Temperature 98.6 degrees Fahrenheit 2017-02-26 Heart Rate 80 bpm 2017-02-26 Respiratory Rate 20 2017-02-26 BMI 50.39 kg/m2 2017-02-26 Blood pressure systolic 100 mmHg 2017-02-26 Blood pressure diastolic 60 mmHg 2017-02-26 MEDICATIONS Medication Instructions Dosage Frequency Start Date End Date Duration Status Wellbutrin XL 150 MG Orally Once a day 1 tablet in the morning 24h Active Flonase 50 MCG/DOSE Nasally Once a day 1 spray in each nostril 24h Active Pantoprazole Sodium 40 mg Orally Once a day 1 tablet 24h Active Triamcinolone Acetonide 0.5 % Externally Twice a day 1 application to affected area 12h 18 Feb, 2017 14 days Active Trileptal 300 MG Orally 3 times a day 2 tablets 8h Active Albuterol Sulfate HFA 108 (90 Base) MCG/ACT Inhalation every 4 hrs 2 puffs as needed 4h Active Dicyclomine HCl 20 mg Orally 4 times a day 1 capsule 6h Active PredniSONE 20 MG Orally Once a day 1 tablet 24h Active PredniSONE 20 mg Orally Once a day 2 tablets 24h 18 Feb, 2017 Feb, 05 days Active Zofran 4 MG Orally twice a day 1 tablet 12h Apr, 30 day(s) Active Cyclobenzaprine HCl 10 mg Orally Three times a day 1 tablet 8h Active RESULTS Name Result Date Reference Range LH 2017-02-26 LH 8.1 ESTRADIOL 2017-02-26 Estradiol 98.1 A1C 2017-02-26 Hemoglobin A1c TNP TSH 2017-02-26 TSH 1.420 0.450-4.500 FSH, SERUM 2017-02-26 FSH 5.8 INSULIN LEVEL 2017-02-26 Insulin 120.7 2.6-24.9 Request Problem TNP CBC 2017-02-26 WBC TNP RBC TNP Hemoglobin TNP Hematocrit TNP MCV MCH MCHC RDW Platelets TNP Neutrophils TNP Lymphs TNP Monocytes TNP Eos TNP Basos Immature Cells Neutrophils (Absolute) Lymphs (Absolute) TNP Monocytes(Absolute) Eos (Absolute) TNP Baso (Absolute) TNP Immature Granulocytes Immature Grans (Abs) NRBC Hematology Comments: LIPID PANEL 2017-02-26 Cholesterol, Total 200 100-199 Triglycerides 225 0-149 HDL Cholesterol 49 >39 VLDL Cholesterol Jag 45 5-40 LDL Cholesterol Calc 106 0-99 CMP 2017-02-26 Glucose, Serum 92 65-99 BUN 9 6-20 Creatinine, Serum 0.62 0.57-1.00 eGFR If NonAfricn Am 119 >59 eGFR If Africn Am 137 >59 BUN/Creatinine Ratio 15 9-23 Sodium, Serum 142 134-144 Potassium, Serum 4.2 3.5-5.2 Chloride, Serum 101 96-106 Carbon Dioxide, Total 23 18-29 Calcium, Serum 9.1 8.7-10.2 Protein, Total, Serum 6.9 6.0-8.5 Albumin, Serum 4.3 3.5-5.5 Globulin, Total 2.6 1.5-4.5 A/G Ratio 1.7 1.2-2.2 Bilirubin, Total <0.2 0.0-1.2 Alkaline Phosphatase, S 73 39-117 AST (SGOT) 17 0-40 ALT (SGPT) 24 0-32 PROCEDURES Procedure Date Ordered Result Body Site LAB NOT BILLED BY [facility] Feb 26, 2017 VENIPUNCT, ROUTINE* Feb 26, 2017 Hemoglobin Test Send Out 0 dollar Feb 26, 2017 INSTRUCTIONS MEDICATIONS ADMINISTERED No Known [...]
--- OUTSIDE RECORDS SUMMARY | 2018-08-17 07:41 | XMS REPORT ---
Author Author FORTINO STONE Organization [facility] Address [address] [place] [address] Care Team Providers Care Ground Nuclear Weapons Assembly Officer Name Role Phone JUAREZSHANNENCELINA FORTINO Unavailable PROBLEMS Type Condition ICD9-CM Code QAG12-OT Code Onset Dates Condition Status SNOMED Code Problem Swelling of multiple joints M25.40 Active 02267460 Problem Morbid (severe) obesity due to excess calories E66.01 Active 037175414 Problem Eczema, unspecified type L30.9 Active 78625204 Problem Diverticulitis K57.92 Active 198761013 Problem Metabolic syndrome E88.81 Active 084996362 Problem Seasonal allergic rhinitis due to pollen J30.1 Active 13550888 Problem Nausea and vomiting in adult R11.2 Active 72797520 Problem Body mass index (BMI) of 50-59.9 in adult Z68.43 Active 273155118 Problem Polycystic ovarian syndrome E28.2 Active 56611422 Problem Daytime sleepiness R40.0 Active 970330547513 Problem Dyslipidemia E78.5 Active 033305732 Problem Anxiety F41.9 Active 40185516 Problem Enteropathic arthropathies, 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 Active 9803401 Problem Mood disorder F39 Active 68809791 Problem Environmental allergies Z91.09 Active 894860870 Problem Mild persistent asthma without complication J45.30 Active 472258613 Problem Gastroesophageal reflux disease without esophagitis K21.9 Active 624021053 Problem Simple chronic bronchitis J41.0 Active 63688955 Problem Bulging lumbar disc M51.26 Active 952821687 Problem Crohns disease without complication, unspecified gastrointestinal tract location K50.90 Active 24486297 Problem Morbid obesity due to excess calories E66.01 Active 918543686 ALLERGIES No Information ENCOUNTERS Encounter Location Date Diagnosis [facility] [address] [facility] [id number] [address] October, [facility] [address] [place] [id number] [place] [address] 42817- 5743 Sep, Diverticulitis K57.92 and BMI 50.0-59.9, adult Z68.43 [place] [id number] [place] [address] 57577- 5739 Sep, [place] [address] [address]- [address] Sep, [place] [address] 92570- 6857 Aug, [address] 7[address]52- 7053 Jul, Dental examination Z01.[address] 62895- 6878 Jul, Polycystic ovarian syndrome E28.2 ; Nipple discharge N64.52 ; Mild persistent asthma without complication J45.30 ; Seasonal allergic rhinitis due to pollen J30.1 ; Abscess, dental K04.7 ; Nausea and vomiting in adult R11.2 and Body mass index (BMI) of 50-59.9 in adult Z68.43 [place] [id number] [place] [address] 44718- 9467 14 May, [address] [place] [id number] [place] [address] 27698- 5427 May, Metabolic syndrome E88.81 ; Dyslipidemia E78.5 and Morbid obesity due to excess calories E66.01 [place] [id number] [place] [address] 81095- 7053 08 May, 2017 Metabolic syndrome E88.81 ; Dyslipidemia E78.5 ; Morbid obesity due to excess calories E66.01 ; Mild persistent asthma without complication J45.30 ; Crohns disease without complication, unspecified gastrointestinal tract location K50.90 ; Daytime sleepiness R40.0 and Snoring R06.[address] 75776- 8083 Apr, Peroneal tendinitis of right lower extremity M76.71 [place] [address] 75121- 4528 Mar, [place] [address] 23447- 7204 Mar, Mood disorder F39 ; Anxiety F41.9 [...] right foot M25.571 and Metabolic syndrome E88.81 [place] [address] 63182- 9334 Mar, [place] [address] 11117- 3190 Mar, [place] [address] 44795- 0046 Mar, [place] [address] 46868- 2731 Feb, [place] [address] 14251- 8913 Feb, Anxiety F41.9 ; Mood disorder F39 and Morbid (severe) obesity due to excess calories E66.01 [place] [address] 55063- 3445 Feb, [place] [address] 75362- 3947 Feb, [place] [id number] [place] [address] 48998- 8668 Feb, [place] [address] 88430- 9345 Feb, Acute right ankle pain M25.571 ; Eczema, unspecified type L30.9 ; Hair loss L65.9 ; Polycystic ovarian syndrome E28.2 ; Body mass index ( BMI) of 50-59.9 in adult Z68.43 and Morbid (severe) obesity due to excess calories E66.01 [place] [id number] [place] [address] 49656- 2826 Nov, [address] 78441- 1290 October, [address] 56023- 9093 Jul, [address] 89166- 5694 Jul, Enteropathic arthropathies, 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 and Gastroesophageal reflux disease without esophagitis K21.9 [place] [id number] [place] [address] 05552- 4605 Apr, Mood disorder F39 ; Anxiety F41.9 [...] Morbid obesity due to excess calories E66.01 [place] [id number] [place] [address] 57217- 9461 Apr, IMMUNIZATIONS No Known Immunizations SOCIAL HISTORY Never Assessed REASON FOR VISIT PLAN OF CARE VITAL SIGNS MEDICATIONS Medication Instructions Dosage Frequency Start Date End Date Duration Status Metformin HCl 500 mg Orally Twice a day 1 tablet with meals; start with 1 tab at night only x7 days 12h Mar, 30 day(s) Active RESULTS No Results PROCEDURES [...]
--- OUTSIDE RECORDS SUMMARY | 2018-08-17 07:42 | XMS REPORT ---
Author Author MC SOTO Organization [facility] Address [address] [place] [address] Care Team Providers Care Outbound Sales Professional Name Role Phone MC SOTO Unavailable PROBLEMS Type Condition ICD9-CM Code UJS59-QL Code Onset Dates Condition Status SNOMED Code Problem Gastroesophageal reflux disease without esophagitis K21.9 Active 442114782 Problem Morbid obesity due to excess calories E66.01 Active 662597917 Problem Bulging lumbar disc M51.26 Active 858909259 Problem Dyslipidemia E78.5 Active 436363775 Problem Polycystic ovarian syndrome E28.2 Active 08545561 Problem Body mass index (BMI) of 50-59.9 in adult Z68.43 Active 878833491 Problem Swelling of multiple joints M25.40 Active 46587814 Problem Morbid (severe) obesity due to excess calories E66.01 Active 829014026 Problem Eczema, unspecified type L30.9 Active 04363566 Problem Metabolic syndrome E88.81 Active 115836073 Problem Mood disorder F39 Active 41283590 Problem Nausea and vomiting in adult R11.2 Active 74479110 Problem Enteropathic arthropathies, 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 repeat in two weeks as directed October, Active RESULTS No Results PROCEDURES No Known procedures IMMUNIZATIONS No Known Immunizations MEDICAL (GENERAL) HISTORY Type Description Date Medical [...]
--- OUTSIDE RECORDS SUMMARY | 2018-08-17 07:42 | XMS REPORT ---
Author Author FORTINO STONE Organization [facility] Address [address] [place] [address] Care Team Providers Care Central Processing Tech Name Role Phone JUAREZSHANNENCELINA FORTINO Unavailable PROBLEMS Type Condition ICD9-CM Code DCR97-YU Code Onset Dates Condition Status SNOMED Code Problem Swelling of multiple joints M25.40 Active 22023687 Problem Morbid (severe) obesity due to excess calories E66.01 Active 741964398 Problem Eczema, unspecified type L30.9 Active 96729089 Problem Diverticulitis K57.92 Active 745329182 Problem Metabolic syndrome E88.81 Active 532928184 Problem Seasonal allergic rhinitis due to pollen J30.1 Active 50238291 Problem Nausea and vomiting in adult R11.2 Active 26131056 Problem Body mass index (BMI) of 50-59.9 in adult Z68.43 Active 487237064 Problem Polycystic ovarian syndrome E28.2 Active 29432119 Problem Daytime sleepiness R40.0 Active 185511848680 Problem Dyslipidemia E78.5 Active 565088044 Problem Anxiety F41.9 Active 28764340 Problem Enteropathic arthropathies, 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 Active 5958449 Problem Mood disorder F39 Active 22544503 Problem Environmental allergies Z91.09 Active 629091674 Problem Mild persistent asthma without complication J45.30 Active 508678432 Problem Gastroesophageal reflux disease without esophagitis K21.9 Active 928696232 Problem Simple chronic bronchitis J41.0 Active 84541966 Problem Bulging lumbar disc M51.26 Active 916886294 Problem Crohns disease without complication, unspecified gastrointestinal tract location K50.90 Active 62883314 Problem Morbid obesity due to excess calories E66.01 Active 015204672 ALLERGIES No Information ENCOUNTERS Encounter Location Date Diagnosis [facility] [address] [facility] [id number] [address] October, [facility] [address] [place] [id number] [place] [address] 25690- 6092 Sep, Diverticulitis K57.92 and BMI 50.0-59.9, adult Z68.43 [place] [id number] [place] [address] 69072- 9587 Sep, [place] [address] [address]28- [address]28 Sep, [place] [address] 62576- 2959 Aug, [address] 72319- 1734 Jul, Dental examination Z01.[address] 80090- 0753 Jul, Polycystic ovarian syndrome E28.2 ; Nipple discharge N64.52 ; Mild persistent asthma without complication J45.30 ; Seasonal allergic rhinitis due to pollen J30.1 ; Abscess, dental K04.7 ; Nausea and vomiting in adult R11.2 and Body mass index (BMI) of 50-59.9 in adult Z68.43 [place] [id number] [place] [address] 23733- 6711 14 May, 2017 [place] [id number] [place] [address] 58310- 5314 May, Metabolic syndrome E88.81 ; Dyslipidemia E78.5 and Morbid obesity due to excess calories E66.01 [place] [id number] [place] [address] 44892- 4371 08 May, 2017 Metabolic syndrome E88.81 ; Dyslipidemia E78.5 ; Morbid obesity due to excess calories E66.01 ; Mild persistent asthma without complication J45.30 ; Crohns disease without complication, unspecified gastrointestinal tract location K50.90 ; Daytime sleepiness R40.0 and Snoring R06.[address] 89820- 3973 Apr, Peroneal tendinitis of right lower extremity M76.71 [place] [address] 01565- 7478 Mar, [place] [address] 87183- 9674 Mar, Mood disorder F39 ; Anxiety F41.9 [...] right foot M25.571 and Metabolic syndrome E88.81 [place] [address] 85912- 9249 Mar, [place] [address] 81720- 8232 Mar, [place] [address] 98824- 9033 Mar, [place] [address] 27904- 1060 Feb, [place] [address] 26431- 0338 Feb, Anxiety F41.9 ; Mood disorder F39 and Morbid (severe) obesity due to excess calories E66.01 [place] [address] 31584- 0216 Feb, [place] [address] 11581- 5795 Feb, [place] [address] [id number] [place] [address] 30248- 4441 Feb, [place] [address] 07194- 6921 Feb, Acute right ankle pain M25.571 ; Eczema, unspecified type L30.9 ; Hair loss L65.9 ; Polycystic ovarian syndrome E28.2 ; Body mass index ( BMI) of 50-59.9 in adult Z68.43 and Morbid (severe) obesity due to excess calories E66.01 [place] [id number] [place] [address] 73043- 7881 Nov, [address] 29123- 7386 October, [address] 81590- 7178 Jul, [place] [id number] [place] [address] 03980- 8902 Jul, Enteropathic arthropathies, 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
--- OUTSIDE RECORDS SUMMARY | 2018-08-17 07:42 | XMS REPORT ---
Author Author FORTINO STONE Organization [facility] Address [address] [place] [address] Care Team Providers Care Corpsman Name Role Phone JUAREZSHANNENCELINA FORTINO Unavailable PROBLEMS Type Condition ICD9-CM Code [id number] Code Onset Dates Condition Status SNOMED Code Problem Swelling of multiple joints M25.40 Active 66544610 Problem Morbid (severe) obesity due to excess calories E66.01 Active 811233720 Problem Eczema, unspecified type L30.9 Active 32934256 Problem Diverticulitis K57.92 Active 169485733 Problem Metabolic syndrome E88.81 Active 025881074 Problem Seasonal allergic rhinitis due to pollen J30.1 Active 74747032 Problem Nausea and vomiting in adult R11.2 Active 58591600 Problem Body mass index (BMI) of 50-59.9 in adult Z68.43 Active 418439266 Problem Polycystic ovarian syndrome E28.2 Active 22818558 Problem Daytime sleepiness R40.0 Active 380435516678 Problem Dyslipidemia E78.5 Active 128422600 Problem Anxiety F41.9 Active 77466923 Problem Enteropathic arthropathies, 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 Active 6317080 Problem Mood disorder F39 Active 16040169 Problem Environmental allergies Z91.09 Active 351419012 Problem Mild persistent asthma without complication J45.30 Active 357793292 Problem Gastroesophageal reflux disease without esophagitis K21.9 Active 196444268 Problem Simple chronic bronchitis J41.0 Active 28357869 Problem Bulging lumbar disc M51.26 Active 765059954 Problem Crohns disease without complication, unspecified gastrointestinal tract location K50.90 Active 22744686 Problem Morbid obesity due to excess calories E66.01 Active 566171146 ALLERGIES No Information ENCOUNTERS Encounter Location Date Diagnosis [facility] [address] [facility] [id number] [address] October, [facility] [id number] [place] [address] Sep, Diverticulitis K57.92 and BMI 50.0-59.9, adult Z68.43 [place] [id number] [place] [address] Sep, [place] [address] [address] Sep, [place] [address] [address] Aug, [address] [address] Jul, Dental examination Z01.[address] [address] Jul, Polycystic ovarian syndrome E28.2 ; Nipple discharge N64.52 ; Mild persistent asthma without complication J45.30 ; Seasonal allergic rhinitis due to pollen J30.1 ; Abscess, dental K04.7 ; Nausea and vomiting in adult R11.2 and Body mass index (BMI) of 50-59.9 in adult Z68.43 [place] [id number] [place] [address] 14 May, 2017 [place] [id number] [place] [address]- [address] May, Metabolic syndrome E88.81 ; Dyslipidemia E78.5 and Morbid obesity due to excess calories E66.01 [place] [id number] [place] [address] 08 May, 2017 Metabolic syndrome E88.81 ; Dyslipidemia E78.5 ; Morbid obesity due to excess calories E66.01 ; Mild persistent asthma without complication J45.30 ; Crohns disease without complication, unspecified gastrointestinal tract location K50.90 ; Daytime sleepiness R40.0 and Snoring R06.[address] [address] Apr, Peroneal tendinitis of right lower extremity M76.71 [place] [address] [address] Mar, [place] [address] [address] Mar, Mood disorder F39 ; Anxiety F41.9 [...] right foot M25.571 and Metabolic syndrome E88.81 [place] [address] [address] Mar, [place] [address] [address] Mar, [place] [address] [address] Mar, [place] [address] [address] Feb, [place] [address] [address] Feb, Anxiety F41.9 ; Mood disorder F39 and Morbid (severe) obesity due to excess calories E66.01 [place] [address] [address] Feb, [place] [address] [address] Feb, [place] [id number] [place] [address] Feb, [place] [address] [address] Feb, Acute right ankle pain M25.571 ; Eczema, unspecified type L30.9 ; Hair loss L65.9 ; Polycystic ovarian syndrome E28.2 ; Body mass index ( BMI) of 50-59.9 in adult Z68.43 and Morbid (severe) obesity due to excess calories E66.01 [place] [id number] [place] [address] Nov, [address] [address] October, [address] [address] Jul, [place] [id number] [place] [address] Jul, Enteropathic arthropathies, 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
--- OUTSIDE RECORDS SUMMARY | 2018-08-17 07:42 | XMS REPORT ---
Author Author FORTINO STONE Organization [facility] Address [address] [place] [address] Care Team Providers Care Stitcher Set Up Operator Automatic Name Role Phone JUAREZSHANNENCELINA FORTINO Unavailable PROBLEMS Type Condition ICD9-CM Code UZF90-EC Code Onset Dates Condition Status SNOMED Code Problem Swelling of multiple joints M25.40 Active 20537433 Problem Morbid (severe) obesity due to excess calories E66.01 Active 728023845 Problem Eczema, unspecified type L30.9 Active 33869878 Problem Diverticulitis K57.92 Active 722708928 Problem Metabolic syndrome E88.81 Active 215677752 Problem Seasonal allergic rhinitis due to pollen J30.1 Active 88457580 Problem Nausea and vomiting in adult R11.2 Active 39613122 Problem Body mass index (BMI) of 50-59.9 in adult Z68.43 Active 957595864 Problem Polycystic ovarian syndrome E28.2 Active 90560363 Problem Daytime sleepiness R40.0 Active 589072872862 Problem Dyslipidemia E78.5 Active 717115801 Problem Anxiety F41.9 Active 01984450 Problem Enteropathic arthropathies, 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 Active 1653626 Problem Mood disorder F39 Active 60565544 Problem Environmental allergies Z91.09 Active 038643465 Problem Mild persistent asthma without complication J45.30 Active 772514856 Problem Gastroesophageal reflux disease without esophagitis K21.9 Active 786761115 Problem Simple chronic bronchitis J41.0 Active 19150230 Problem Bulging lumbar disc M51.26 Active 338846584 Problem Crohns disease without complication, unspecified gastrointestinal tract location K50.90 Active 50713758 Problem Morbid obesity due to excess calories E66.01 Active 874089428 ALLERGIES No Information ENCOUNTERS Encounter Location Date Diagnosis [facility] [address] [facility] [id number] [address] October, [facility] [address] [id number] [place] [address] Sep, Diverticulitis K57.92 and BMI 50.0-59.9, adult Z68.43 [place] [id number] [place] [address] Sep, [place] [address] [address] Sep, [place] [address] [address] Aug, [address] [address] Jul, Dental examination Z01.[address] [address] Jul, Polycystic ovarian syndrome E28.2 ; Nipple discharge N64.52 ; Mild persistent asthma without complication J45.30 ; Seasonal allergic rhinitis due to pollen J30.1 ; Abscess, dental K04.7 ; Nausea and vomiting in adult R11.2 and Body mass index (BMI) of 50-59.9 in adult Z68.43 [place] [id number] [place] [address]- [address] 14 May, [address] [place] [id number] [place] [address]- [address] May, Metabolic syndrome E88.81 ; Dyslipidemia E78.5 and Morbid obesity due to excess calories E66.01 [place] [id number] [place] [address]- [address] 08 May, 2017 Metabolic syndrome E88.81 ; Dyslipidemia E78.5 ; Morbid obesity due to excess calories E66.01 ; Mild persistent asthma without complication J45.30 ; Crohns disease without complication, unspecified gastrointestinal tract location K50.90 ; Daytime sleepiness R40.0 and Snoring R06.[address] [address] Apr, Peroneal tendinitis of right lower extremity M76.71 [place] [address] [address] Mar, [place] [address] [address] Mar, Mood disorder F39 ; Anxiety F41.9 [...] right foot M25.571 and Metabolic syndrome E88.81 [place] [address] [address]- [address] Mar, [place] [address] [address] Mar, [place] [address] [address]- [address] Mar, [place] [address] [address]- [address] Feb, [place] [address] [address] Feb, Anxiety F41.9 ; Mood disorder F39 and Morbid (severe) obesity due to excess calories E66.01 [place] [address] [address] Feb, [place] [address] [address] Feb, [place] [address] [id number] [place] [address]- [address] Feb, [place] [address] [address] Feb, Acute right ankle pain M25.571 ; Eczema, unspecified type L30.9 ; Hair loss L65.9 ; Polycystic ovarian syndrome E28.2 ; Body mass index ( BMI) of 50-59.9 in adult Z68.43 and Morbid (severe) obesity due to excess calories E66.01 [place] [address] [id number] [place] [address] Nov, [address] [address] October, [address] [address] Jul, [address] [address] Jul, Enteropathic arthropathies, 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 and Gastroesophageal reflux disease without esophagitis K21.9 [place] [id number] [place] [address]- [address] Apr, Mood disorder F39 ; Anxiety F41.9 [...] Morbid obesity due to excess calories E66.01 [place] [id number] [place] [address]72- [address] Apr, IMMUNIZATIONS No Known Immunizations SOCIAL HISTORY Never Assessed REASON FOR VISIT Lab (walk-in) PLAN OF CARE VITAL SIGNS MEDICATIONS Unknown Medications RESULTS Name Result Date Reference Range TESTOSTERONE, TOTAL (WOMEN, CHILDREN, HYPOGONADAL MALES) 2017-03-02 Testosterone, Total, LC/MS 39 A1C 2017-03-02 Hemoglobin A1c 5.3 4.8-5.6 INSULIN LEVEL 2017-03-02 Insulin 44.9 2.6-24.9 PROCEDURES Procedure Date Ordered Result Body Site LAB NOT BILLED BY [facility] Mar 02, 2017 Hemoglobin Test Send Out 0 dollar Mar 02, 2017 VENIPUNCT, ROUTINE* Mar 02, 2017 INSTRUCTIONS MEDICATIONS ADMINISTERED No Known Medications [...]
[2018-08-17 07:54] LABS: BACTERIA,URINE MODERATE /HPF; BILIRUBIN,URINE NEGATIVE (NEGATIVE); CLARITY,URINE CLEAR; COLOR,URINE YELLOW; GLUCOSE, URINE (UA) NEGATIVE (NEGATIVE); KETONES,URINE NEGATIVE (NEGATIVE); LEUKOCYTE ESTERASE ,URINE 1+ (NEGATIVE); NITRITE,URINE NEGATIVE (NEGATIVE); PH,URINE 7.5 (5-9); PROTEIN,URINE NEGATIVE (NEGATIVE); RBC,URINE 0-2 /HPF; SQUAMOUS EPITHELIAL CELL,UR 25-50 /HPF; UROBILINOGEN,URINE 0.2 MG/DL (NORMAL)
--- NOTE | 2018-08-17 07:57 | ED Abdominal Pain ---
General Chief Complaint: Abdominal/GI Problems Stated Complaint: LT SIDE PAIN Source of Information: Patient, Other Exam Limitations: No Limitations History of Present Illness Date Seen by Provider: Aug 17, 2018 Time Seen by Provider: 07:41 Initial Comments Patient presents to ER by private conveyance with a significant other and chief complaint of one day progressively worsening left lower quadrant abdominal pain radiating up her left upper quadrant and left side of her umbilicus. She describes pain as a pulling tearing stabbing sharp pain that is colicky in nature and worse with any movement or jarring such as the ride in on the car. She doesn't history of kidney stones as well as Crohn's disease and diverticulitis. She is status post partial colectomy for her diverticulitis. She 's having some nausea without vomiting. She had a bowel movement this morning that was normal formed without any blood or pain. She says this does not feel like her diverticulitis type pain. She took dicyclomine last night hoping that would help with it but it made no difference. She took a tramadol after that which also made no difference in her pain. She has not used any Tylenol or ibuprofen. She does have a history of kidney stone 1 that she passed spontaneously. No fevers or chills cough shortness of breath. Allergies and Home Medications Allergies Coded Allergies: buspirone (Verified Allergy, Intermediate, SEVERE ANXIETY, 11/27/17) bismuth subsalicylate (Unverified Allergy, Unknown, NAUSEA, 11/27/17) latex (Unverified Allergy, Unknown, RASH, 11/27/17) meperidine (Unverified Allergy, Unknown, RASH, 11/27/17) promethazine (Unverified Allergy, Unknown, DIFFICULTY BREATHING, 11/27/17) Uncoded Allergies: TAPE (Adverse Reaction, Unknown, RASH, 09/15/13) Home Medications Albuterol Sulfate 0.63 Mg/3 Ml Vial.neb, 0.63 MG IH PRN, (Reported) Albuterol Sulfate 1 Puff Puff, 2 PUFF IH Q4H PRN for COUGH, (Reported) 1 PUFF = 90 MCG Asenapine Maleate 5 Mg Tab.subl, 5 MG SL HS, (Reported) Asenapine Maleate 10 Mg Tab.subl, 10 MG SL HS, (Reported) Atorvastatin Calcium 20 Mg Tablet, 20 MG PO HS, (Reported) Brexpiprazole 0.5 Mg Tablet, 0.5 MG PO NOON, (Reported) Bupropion HCl 150 Mg Tablet.er, 150 MG PO BID, (Reported) Cyclobenzaprine HCl 10 Mg Tablet, 10 MG PO PRN, (Reported) Dicyclomine HCl 20 Mg Tablet, 20 MG PO Q4H, (Reported) Fluticasone Propionate 9.9 Ml [place].susp, 1 SPRAY NS DAILY, (Reported) 1 SPRAY EACH NARE DAILY Ibuprofen 800 Mg Tablet, 800 MG PO Q8H PRN for PAIN, (Reported) Metformin HCl 500 Mg Tablet, 500 MG PO DAILY, (Reported) Oxcarbazepine 300 Mg Tablet, 900 MG PO MORNING AND EVENING, (Reported) Oxcarbazepine 300 Mg Tablet, 600 MG PO AFTERNOON, (Reported) Pantoprazole Sodium 40 Mg Tablet.dr, 40 MG PO DAILY, (Reported) Prednisone 20 Mg Tab, 20 MG PO BID PRN for CHROHNS, (Reported) Take 3 tabs(60mg)daily, decrease by 1/2 tab(10mg)daily. Tramadol HCl 50 Mg Tablet, 50 MG PO Q6H PRN for PAIN-MILD TO MODERATE, (Reported ) Patient Home Medication List Home Medication List Reviewed: Yes Review of Systems Review of Systems Constitutional: No chills, No fever EENTM: No Blurred Vision, No Double Vision Respiratory: Denies Cough, Denies Shortness of Air Cardiovascular: Denies Chest Pain, Denies Lightheadedness Gastrointestinal: See HPI; Denies Abdomen Distended; Abdominal Pain; Denies Constipated, Denies Diarrhea; Nausea; Denies Poor Fluid Intake, Denies Vomiting Genitourinary: Denies Burning, Denies Discharge, Denies Drainage, Denies Frequency; Flank Pain; Denies Hematuria Musculoskeletal: No back pain, No joint pain Past Qjwjlve-Gzgqql-Zhfvan Hx Patient Social History Alcohol Use: Denies Use Recreational Drug Use: No Smoking Status: Former Smoker Type Used: Cigarettes Former Smoker, Quit: Aug 14, 2018 Recent Foreign Travel: No (N) Contact w/Someone Who Travel: No (N) Recent Hopitalizations: No Immunizations Up To Date Tetanus Booster (TDap): Unknown Seasonal Allergies Seasonal Allergies: Yes Past Medical History Hysterectomy Asthma, Sleep Apnea Currently Using CPAP: No Currently Using BIPAP: No High Cholesterol Reproductive Disorders: No Female Reproductive Disorders: 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 0.0oz. [id number]; 43.6 BMI Method: General Appearance: WD/WN, mild distress HEENT: PERRL/EOMI, pharynx normal Respiratory: no respiratory distress, no accessory muscle use Cardiovascular: normal peripheral pulses, regular rate, rhythm Gastrointestinal: normal bowel sounds, soft; No guarding, No rebound; tenderness (in the left inguinal/left lower quadrant as well as left upper quadrant. Pain is increased with jarring motion but negative for psoas sign.) Extremities: non-tender, normal inspection, normal capillary refill Back: normal inspection, CVA tenderness (L) Neurologic/Psychiatric: alert, normal mood/affect, oriented x 3 Skin: normal color, warm/dry Progress/Results/Core Measures Results/Orders Lab Results Laboratory Tests Test 08/17/18 07:40 08/17/18 08:00 Range/Units Urine Color YELLOW Urine Clarity CLEAR Urine pH 7.5 5-9 Urine Specific [place] 1.010 L 1.016-1.022 Urine Protein NEGATIVE NEGATIVE Urine Glucose (UA) NEGATIVE NEGATIVE Urine Ketones NEGATIVE NEGATIVE Urine Nitrite NEGATIVE NEGATIVE Urine Bilirubin NEGATIVE NEGATIVE Urine Urobilinogen 0.2 NORMAL MG/DL Urine Leukocyte Esterase 1+ H NEGATIVE Urine RBC (Auto) TRACE H NEGATIVE Urine RBC 0-2 /HPF Urine WBC 2-5 /HPF Urine Squamous Epithelial Cells 25-50 H /HPF Urine Crystals NONE /LPF Urine Bacteria MODERATE H /HPF Urine Casts NONE /LPF Urine Mucus NEGATIVE /LPF Urine Culture Indicated NO White Blood Count 7.8 4.3-11.0 10^3/uL Red Blood Count 5.75 4.35-5.85 10^6/uL Hemoglobin 15.6 11.5-16.0 G/DL Hematocrit 48 35-52 % Mean Corpuscular Volume 83 80-99 FL Mean Corpuscular Hemoglobin 27 25-34 PG Mean Corpuscular Hemoglobin Concent 33 32-36 G/DL Red Cell Distribution Width 14.6 H 10.0-14.5 % Platelet Count 279 130-400 10^3/uL Mean Platelet Volume 9.5 7.4-10.4 FL Neutrophils (%) (Auto) 57 42-75 % Lymphocytes (%) (Auto) 31 12-44 % Monocytes (%) (Auto) 9 0-12 % Eosinophils (%) (Auto) 3 0-10 % Basophils (%) (Auto) 1 0-10 % Neutrophils # (Auto) 4.4 1.8-7.8 X 10^3 Lymphocytes # (Auto) 2.4 1.0-4.0 X 10^3 Monocytes # (Auto) 0.7 0.0-1.0 X 10^3 Eosinophils # (Auto) 0.2 0.0-0.3 10^3/uL Basophils # (Auto) 0.0 0.0-0.1 10^3/uL Urine Test NEGATIVE NEGATIVE Sodium Level 140 135-145 MMOL/L Potassium Level 3.8 3.6-5.0 MMOL/L Chloride Level 106 98-107 MMOL/L Carbon Dioxide Level 15 L 21-32 MMOL/L Anion Gap 19 H 5-14 MMOL/L Blood Urea Nitrogen 6 L 7-18 MG/DL Creatinine 0.63 0.60-1.30 MG/DL Estimat Glomerular Filtration Rate > 60 BUN/Creatinine Ratio 10 Glucose Level 90 70-105 MG/DL Calcium Level 8.1 L 8.5-10.1 MG/DL Corrected Calcium 8.4 L 8.5-10.1 MG/DL Total Bilirubin 0.3 0.1-1.0 MG/DL Aspartate Amino Transf (AST/SGOT) 14 5-34 U/L Alanine Aminotransferase (ALT/SGPT) 17 0-55 U/L Alkaline Phosphatase 64 40-136 U/L Total Protein 6.6 6.4-8.2 GM/DL Albumin 3.6 3.2-4.5 GM/DL My Orders Orders - ETHAN HUANG Ua Culture If Indicated (08/17/18 07:38) Urine Bedside (3/9/19 07:38) Ketorolac Injection (Toradol Injection) (08/17/18 08:00) Ondansetron Injection (Zofran Injectio (08/17/18 08:00) Cbc With Automated Diff (08/17/18 07:51) Comprehensive Metabolic Panel (08/17/18 07:51) Hs C Reactive Protein (08/17/18 07:51) Saline Lock/Iv-Start (08/17/18 07:51) Ct Abdomen/Pelvis Wo (08/17/18 08:25) Hcg,Qualitative Urine (08/17/18 08:26) Medications Given in ED Current Medications Medications Dose Ordered Sig/Christoph Route Start Time Stop Time Status Last Admin Dose Admin Ketorolac Tromethamine 30 mg ONCE ONCE IVP 08/17/18 08:00 08/17/18 08:01 DC 08/17/18 08:00 30 MG Ondansetron HCl 4 mg ONCE ONCE IVP 08/17/18 08:00 08/17/18 08:01 DC 08/17/18 08:00 4 MG Vital Signs/I&O 08/17/18 07:50 Temp 98.2 Pulse 85 Resp 18 B/P (MAP) 143/94 (110) Pulse Ox 98 O2 Delivery Room Air Progress Progress Note #1: Time: 07:56 Progress Note Left-sided pain certainly makes us think about the colon, diverticulitis, Crohn' s but she describes the pain is different and worse with jarring which could also be consistent with passing a ureteral stone. We'll obtain some urine and will get some basic lab work to help guide her imaging studies with her without contrast of the abdomen and pelvis by CT. Toradol and Zofran for comfort. Patient does not appear acutely dehydrated. Progress Note #2: Time: 08:26 Progress Note She has a small amount of blood noted in her urinalysis and no elevated white count so making by history exam and lab diverticulitis flare less likely. We'll go ahead and get a CT of the abdomen pelvis without contrast looking for kidney stones but is also still be a limited examination of her colon. Diagnostic Imaging Diagonstic Imaging: CT (noncontrasted kidney stone study) Plain Films/CT/US/NM/MRI: abdomen, pelvis Comments NAME: MARIA C ROJO [facility] REC#: [id number] PT STATUS: REG ER : 1985 PHYSICIAN: ETHAN HUANG MD ADMIT DATE: 08/17/18/ER FS Draft Date of Exam:08/17/18 CT ABDOMEN/PELVIS WO PROCEDURE: CT abdomen and pelvis without contrast. TECHNIQUE: Multiple contiguous axial images were obtained through the abdomen and pelvis without the use of intravenous contrast. DATE: August 17, 2018. COMPARISON: None. INDICATION: 33-year-old female, left-sided abdominal pain. FINDINGS: There are limitations of the exam relating to low rozzlx-ek-xnenb ratio. There are limitations for evaluation of the abdominal organs, neoplastic processes, abscess, and limited evaluation of the vasculature relating to the lack of intravenous contrast. The visualized portions of the lung bases are clear. The heart is not enlarged. There is no identified pericardial effusion. The liver is unremarkable in size and contour. The patient is status post cholecystectomy. There is no identified intrahepatic or extrahepatic bile duct dilation. The main pancreatic duct is not grossly dilated. Unremarkable noncontrast appearance of the pancreatic parenchyma. The spleen is normal in size. The adrenal glands are unremarkable. Unremarkable appearance of the renal parenchyma. The urinary collecting systems are not distended. There is no identified renal or ureteral stone. The urinary bladder is unremarkable in appearance. The uterus is not seen and likely surgically absent. There is diverticulosis. There is mild inflammatory stranding at the level of the proximal sigmoid colon in an area of diverticular disease with likely relates to early findings of acute diverticulitis. There is no evidence of perforation or abscess. The appendix is well seen on axial image 63 and adjacent sequential images. There is no evidence of acute appendicitis. There is no free intraperitoneal air. There is no drainable fluid collection. There are postoperative changes of small bowel. There is no sizable volume free pelvic fluid. There is no identified abnormally enlarged lymph node in the abdomen or pelvis which meets CT size criteria for adenopathy. There is no identified acute bony abnormality. There are degenerative changes of the spine. IMPRESSION: CT ABDOMEN AND PELVIS. 1. Inflammatory stranding adjacent to the proximal sigmoid colon which is in an area of diverticular disease likely relating to early findings of acute diverticulitis. No evidence of perforation or abscess. Dictated on workstation # [id number] Dict: 08/17/18905 Trans: 08/17/18911 [facility] [id number] Interpreted by: TRISTAN GARDNER MD Electronically signed by: Reviewed: Reviewed by Me Departure Impression Primary Impression: Diverticulitis of intestine Qualified Codes: K57.32 - Diverticulitis of large intestine without perforation or abscess without bleeding Disposition: HOME, SELF-CARE Condition: Stable Departure-Patient Inst. Decision time for Depature: 09:16 Referrals: [facility]/ (PCP) Primary Care Physician LOPEZ SHULTZ APRN (Family) Primary Care Physician Patient Instructions: Diverticulitis (DC) Add. Discharge Instructions: There appears to be some early inflammation surrounding your diverticula in your colon On the left side were your pain is from. We will start with some antibiotics to calm this infection down. In the unlikely event that there is also a Crohn's flare the antibiotics will not help. Expect some improvement in 3-4 days so I would like you to follow up with your primary care doctor in about 3 or 4 days. Drink plenty of fluids. If you start to have high fevers or pain that is not managed with Tylenol, ibuprofen or the [place] one every 6 hours as needed then you should follow-up with the ER nearest you for further management. [place] will cause constipation which may delay recovery from your disease process so should be used only as needed to manage severe, breakthrough pain. All discharge instructions reviewed with patient and/or family. Voiced understanding. Scripts Amoxicillin/Potassium Clav (Augmentin 875-125 Tablet) 1 Each Tablet 1 EACH PO TID for 7 Days, #21 TAB 0 Refills Prov: ETHAN HUANG 08/17/18 Hydrocodone Bit/Acetaminophen (Hydrocodone/Acetaminophen 5/325mg Tablet) 1 Tab Tab 1 EACH PO Q6H PRN for BREAKTHROUGH PAIN MDD 10, #15 TAB 0 Refills Prov: ETHAN HUANG 08/17/18 Work/School Note: Work Release Form Date Seen in the Emergency Department: Aug 17, 2018 Return to Work: Aug 21, 2018 Restrictions: No Restrictions ETHAN HUANG Aug 17, 2018 07:57
[2018-08-17] MEDS ORDERED: ONDANSETRON 4 MG/2 ML (SDV) Z0FRAN IVP ONE (08:00)
[2018-08-17] MEDS ORDERED: KETOROLAC 30 MG/ML VIAL IVP ONE (08:00)
[2018-08-17 08:16] LABS: HEMATOCRIT 48 % (35-52); HEMOGLOBIN 15.6 G/DL (11.5-16.0); MEAN CORPUSCULAR HEMOGLOBIN 27 PG (25-34); MEAN CORPUSCULAR HGB CONC 33 G/DL (32-36); MEAN CORPUSCULAR VOLUME 83 FL (80-99); WHITE BLOOD COUNT 7.8 10^3/uL (4.3-11.0)
[2018-08-17 08:17] LABS: BASOPHILS % (AUTO) 1 % (0-10); EOSINOPHILS # (AUTO) 0.2 10^3/uL (0.0-0.3); EOSINOPHILS % (AUTO) 3 % (0-10); LYMPHOCYTES # (AUTO) 2.4 X 10^3 (1.0-4.0); LYMPHOCYTES % (AUTO) 31 % (12-44); MEAN PLATELET VOLUME 9.5 FL (7.4-10.4); MONOCYTES # (AUTO) 0.7 X 10^3 (0.0-1.0); MONOCYTES % (AUTO) 9 % (0-12); NEUTROPHILS # (AUTO) 4.4 X 10^3 (1.8-7.8); NEUTROPHILS % (AUTO) 57 % (42-75); PLATELET COUNT 279 10^3/uL (130-400); RED CELL DISTRIBUTION WIDTH 14.6 % (10.0-14.5)
[2018-08-17 08:48] LABS: POTASSIUM 3.8 MMOL/L (3.6-5.0); SODIUM 140 MMOL/L (135-145)
[2018-08-17 08:49] LABS: ALANINE AMINOTRANSFERASE 17 U/L (0-55); ALBUMIN 3.6 GM/DL (3.2-4.5); ALKALINE PHOSPHATASE 64 U/L (40-136); BILIRUBIN,TOTAL 0.3 MG/DL (0.1-1.0); BUN/CREATININE RATIO 10; CALCIUM 8.1 MG/DL (8.5-10.1); CARBON DIOXIDE 15 MMOL/L (21-32); CHLORIDE 106 MMOL/L (98-107); CREATININE SERUM 0.63 MG/DL (0.60-1.30); GFR ESTIMATED > 60; GLUCOSE 90 MG/DL (70-105); TOTAL PROTEIN 6.6 GM/DL (6.4-8.2)
--- NOTE | 2018-08-17 09:13 | Diagnostic Imaging Report ---
PROCEDURE: CT abdomen and pelvis without contrast. TECHNIQUE: Multiple contiguous axial images were obtained through the abdomen and pelvis without the use of intravenous contrast. DATE: August 17, 2018. COMPARISON: None. INDICATION: 33-year-old female, left-sided abdominal pain. FINDINGS: There are limitations of the exam relating to low ynukpb-gn-pwfgy ratio. There are limitations for evaluation of the abdominal organs, neoplastic processes, abscess, and limited evaluation of the vasculature relating to the lack of intravenous contrast. The visualized portions of the lung bases are clear. The heart is not enlarged. There is no identified pericardial effusion. The liver is unremarkable in size and contour. The patient is status post cholecystectomy. There is no identified intrahepatic or extrahepatic bile duct dilation. The main pancreatic duct is not grossly dilated. Unremarkable noncontrast appearance of the pancreatic parenchyma. The spleen is normal in size. The adrenal glands are unremarkable. Unremarkable appearance of the renal parenchyma. The urinary collecting systems are not distended. There is no identified renal or ureteral stone. The urinary bladder is unremarkable in appearance. The uterus is not seen and likely surgically absent. There is diverticulosis. There is mild inflammatory stranding at the level of the proximal sigmoid colon in an area of diverticular disease with likely relates to early findings of acute diverticulitis. There is no evidence of perforation or abscess. The appendix is well seen on axial image 63 and adjacent sequential images. There is no evidence of acute appendicitis. There is no free intraperitoneal air. There is no drainable fluid collection. There are postoperative changes of small bowel. There is no sizable volume free pelvic fluid. There is no identified abnormally enlarged lymph node in the abdomen or pelvis which meets CT size criteria for adenopathy. There is no identified acute bony abnormality. There are degenerative changes of the spine. IMPRESSION: CT ABDOMEN AND PELVIS. 1. Inflammatory stranding adjacent to the proximal sigmoid colon which is in an area of diverticular disease likely relating to early findings of acute diverticulitis. No evidence of perforation or abscess. Dictated by: Dictated on workstation # [id number]
[2018-08-17] MEDS ORDERED: ACHD5005 PO (09:25)
[2018-08-17] MEDS ORDERED: AMOX-358 PO (09:25)
[2018-08-17] MEDS ORDERED: HYDROcodone/APAP 5 MG/325 MG (LORTAB) TAB PO ONE (09:30)
[2018-08-17 09:46] VITALS: BP 122/78
== END 2018-08-17 09:43 | disposition home or self-care (01) ==
LOC: EDUNIT# 07:30 → ER FS 07:33
DX: K57.32 Diverticulitis of large intestine without perforation or abscess without bleeding (principal); E78.00 Pure hypercholesterolemia, unspecified; G47.30 Sleep apnea, unspecified; F41.9 Anxiety disorder, unspecified; F31.9 Bipolar disorder, unspecified; F60.9 Personality disorder, unspecified; J45.909 Unspecified asthma, uncomplicated; Z88.8 Allergy status to other drugs, medicaments and biological substances; Z91.040 Latex allergy status; Z87.19 Personal history of other diseases of the digestive system; Z91.048 Other nonmedicinal substance allergy status; Z79.51 Long term (current) use of inhaled steroids; Z87.442 Personal history of urinary calculi; Z79.52 Long term (current) use of systemic steroids; Z87.891 Personal history of nicotine dependence; Z90.710 Acquired absence of both cervix and uterus
CPT/HCPCS: 36415; 74176; 80053; 81000; 84703; 85025

== ENCOUNTER 2018-08-23 22:35 | Inpatient (IN) | payer MEDICAID ==
[~2018-08-23] VITALS: Ht 160 cm; Wt 138.3 kg
[~2018-08-23 22:35] MED LIST changes: +ACHD5005 PO; +AMOX-358 PO
[2018-08-23] MEDS ORDERED: CIPROFLOXACIN IV 400MG/200ML 200 ML IV STA (22:52)
[2018-08-23] MEDS ORDERED: metroNIDAZOLE 500MG/100ML IVPB 100 ML IV STA (22:52)
--- NOTE | 2018-08-23 22:52 | ED Abdominal Pain ---
General Stated Complaint: PAIN IN LOW GROIN AND ABD. History of Present Illness Date Seen by Provider: Aug 23, 2018 Time Seen by Provider: 22:42 This is a 33-year-old female seen here about a week ago for diverticulitis started on Augmentin here with persistent pain. She does not think she is gotten worse but she also has not gotten any better. Pain is worse in the left lower quadrant. Does not radiate to the back or elsewhere. Constant. Moderate. Not better with tramadol. Allergies and Home Medications Allergies Coded Allergies: buspirone (Verified Allergy, Intermediate, SEVERE ANXIETY, 11/27/17) bismuth subsalicylate (Unverified Allergy, Unknown, NAUSEA, 11/27/17) latex (Unverified Allergy, Unknown, RASH, 11/27/17) meperidine (Unverified Allergy, Unknown, RASH, 11/27/17) promethazine (Unverified Allergy, Unknown, DIFFICULTY BREATHING, 11/27/17) Uncoded Allergies: TAPE (Adverse Reaction, Unknown, RASH, 09/15/13) Home Medications Albuterol Sulfate 0.63 Mg/3 Ml Vial.neb, 0.63 MG IH PRN, (Reported) Albuterol Sulfate 1 Puff Puff, 2 PUFF IH Q4H PRN for COUGH, (Reported) 1 PUFF = 90 MCG Amoxicillin/Potassium Clav 1 Each Tablet, 1 EACH PO TID Prescribed by: ETHAN HUANG on 08/17/18 0925 Asenapine Maleate 5 Mg Tab.subl, 5 MG SL HS, (Reported) Asenapine Maleate 10 Mg Tab.subl, 10 MG SL HS, (Reported) Atorvastatin Calcium 20 Mg Tablet, 20 MG PO HS, (Reported) Brexpiprazole 0.5 Mg Tablet, 0.5 MG PO NOON, (Reported) Bupropion HCl 150 Mg Tablet.er, 150 MG PO BID, (Reported) Cyclobenzaprine HCl 10 Mg Tablet, 10 MG PO PRN, (Reported) Dicyclomine HCl 20 Mg Tablet, 20 MG PO Q4H, (Reported) Fluticasone Propionate 9.9 Ml [place].susp, 1 SPRAY NS DAILY, (Reported) 1 SPRAY EACH NARE DAILY Hydrocodone Bit/Acetaminophen 1 Tab Tab, 1 EACH PO Q6H PRN for BREAKTHROUGH PAIN Prescribed by: ETHAN HUANG on 08/17/18 0925 Ibuprofen 800 Mg Tablet, 800 MG PO Q8H PRN for PAIN, (Reported) Metformin HCl 500 Mg Tablet, 500 MG PO DAILY, (Reported) Oxcarbazepine 300 Mg Tablet, 900 MG PO MORNING AND EVENING, (Reported) Oxcarbazepine 300 Mg Tablet, 600 MG PO AFTERNOON, (Reported) Pantoprazole Sodium 40 Mg Tablet.dr, 40 MG PO DAILY, (Reported) Prednisone 20 Mg Tab, 20 MG PO BID PRN for CHROHNS, (Reported) Take 3 tabs(60mg)daily, decrease by 1/2 tab(10mg)daily. Tramadol HCl 50 Mg Tablet, 50 MG PO Q6H PRN for PAIN-MILD TO MODERATE, (Reported ) Patient Home Medication List Home Medication List Reviewed: Yes Review of Systems Review of Systems Constitutional: no symptoms reported EENTM: No Symptoms Reported Respiratory: No Symptoms Reported Cardiovascular: No Symptoms Reported Gastrointestinal: See HPI Genitourinary: No Symptoms Reported Musculoskeletal: no symptoms reported Skin: no symptoms reported Psychiatric/Neurological: No Symptoms Reported Endocrine: No Symptoms Reported Hematologic/Lymphatic: No Symptoms Reported Past Aqghnsi-Zvjvtc-Kyjrhl Hx Past Med/Social Hx: Reviewed Nursing Past Med/Soc Hx Patient Social History Type Used: Cigarettes Former Smoker, Quit: Aug 15, 2018 2nd Hand Smoke Exposure: Yes Recent Foreign Travel: No Contact w/Someone Who Travel: No Recent Hopitalizations: No Immunizations Up To Date Tetanus Booster (TDap): Unknown Seasonal Allergies Seasonal Allergies: No Past Medical History Bowel Surgery Respiratory: No Asthma, Sleep Apnea Currently Using CPAP: No Currently Using BIPAP: No Cardiac: No High Cholesterol Neurological: No Reproductive Disorders: No Female Reproductive Disorders: 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 Sexually Transmitted Disease: No HIV/AIDS: No Genitourinary: No Gastrointestinal: Yes Crohns Disease, Diverticulosis, Irritable Bowel Musculoskeletal: No Arthritis, Chronic Back Pain Endocrine: No HEENT: No Loss of Vision: Bilateral Hearing Impairment: Denies Cancer: No Psychosocial: Yes Bipolar, Depression Integumentary: No Blood Disorders: No Adverse Reaction/Blood Tranf: No (HAS HAD BLOOD WITH NO REACTION) Physical Exam Vital Signs Vital Signs - First Documented 08/23/18 22:46 Temp 98.8 Pulse 92 Resp 18 B/P (MAP) 134/71 (92) O2 Delivery Room Air Capillary Refill : Height/Weight/BMI Height: 5'3.00" Weight: 276lbs. 0.0oz. 125.372784us; 43.6 BMI Method:Stated General Appearance: no apparent distress HEENT: normal ENT inspection Neck: supple Respiratory: lungs clear Cardiovascular: normal peripheral pulses, regular rate, rhythm Gastrointestinal: other (moderate tenderness in the left lower quadrant without rebound, rigidity, or guarding) Neurologic/Psychiatric: alert, oriented x 3; No abnormal gait Skin: warm/dry Progress/Results/Core Measures Results/Orders Lab Results Laboratory Tests Test 08/23/18 22:43 08/23/18 23:05 Range/Units Urine Color YELLOW Urine Clarity CLOUDY Urine pH 7.0 5-9 Urine Specific [place] 1.020 1.016-1.022 Urine Protein NEGATIVE NEGATIVE Urine Glucose (UA) NEGATIVE NEGATIVE Urine Ketones NEGATIVE NEGATIVE Urine Nitrite NEGATIVE NEGATIVE Urine Bilirubin NEGATIVE NEGATIVE Urine Urobilinogen 0.2 NORMAL MG/DL Urine Leukocyte Esterase TRACE H NEGATIVE Urine RBC (Auto) TRACE-I NEGATIVE Urine RBC RARE /HPF Urine WBC 0-2 /HPF Urine Squamous Epithelial Cells 5-10 /HPF Urine Crystals NONE /LPF Urine Bacteria 1+ /HPF Urine Casts NONE /LPF Urine Mucus SMALL H /LPF Urine Culture Indicated NO Urine Test NEGATIVE NEGATIVE White Blood Count 11.8 H 4.3-11.0 10^3/uL Red Blood Count 5.13 4.35-5.85 10^6/uL Hemoglobin 13.9 11.5-16.0 G/DL Hematocrit 43 35-52 % Mean Corpuscular Volume 83 80-99 FL Mean Corpuscular Hemoglobin 27 25-34 PG Mean Corpuscular Hemoglobin Concent 33 32-36 G/DL Red Cell Distribution Width 13.6 10.0-14.5 % Platelet Count 279 130-400 10^3/uL Mean Platelet Volume 9.8 7.4-10.4 FL Sodium Level 139 135-145 MMOL/L Potassium Level 3.8 3.6-5.0 MMOL/L Chloride Level 102 98-107 MMOL/L Carbon Dioxide Level 23 21-32 MMOL/L Anion Gap 14 5-14 MMOL/L Blood Urea Nitrogen 11 7-18 MG/DL Creatinine 0.86 0.60-1.30 MG/DL Estimat Glomerular Filtration Rate > 60 BUN/Creatinine Ratio 13 Glucose Level 121 H 70-105 MG/DL Calcium Level 9.0 8.5-10.1 MG/DL Corrected Calcium 9.2 8.5-10.1 MG/DL Total Bilirubin 0.2 0.1-1.0 MG/DL Aspartate Amino Transf (AST/SGOT) 18 5-34 U/L Alanine Aminotransferase (ALT/SGPT) 24 0-55 U/L Alkaline Phosphatase 64 40-136 U/L Total Protein 6.9 6.4-8.2 GM/DL Albumin 3.8 3.2-4.5 GM/DL My Orders Orders - SARI HAILE DO Cbc No Diff (08/23/18 22:52) Comprehensive Metabolic Panel (08/23/18 22:52) Ua Culture If Indicated (08/23/18 22:52) Hcg,Qualitative Urine (08/23/18 22:52) Ciprofloxacin Iv 400mg/200ml (Cipro Iv S (08/23/18 22:52) Metronidazole 500mg/100ml Ivpb (Flagyl 5 (08/23/18 22:52) Hydromorphone Injection (Dilaudid Inject (08/23/18 22:53) Ondansetron Injection (Zofran Injectio (08/23/18 23:45) Medications Given in ED Current Medications Medications Dose Ordered Sig/Christoph Route Start Time Stop Time Status Last Admin Dose Admin Ondansetron HCl 4 mg ONCE ONCE IVP 08/23/18 23:45 08/23/18 23:47 DC 08/23/18 23:42 4 MG Vital Signs/I&O 08/23/18 22:46 Temp 98.8 Pulse 92 Resp 18 B/P (MAP) 134/71 (92) O2 Delivery Room Air Progress Progress Note : Progress Note Patient will require admission for failure of outpatient antibiotics for diverticulitis. Benign abdomen, we will defer repeat CT. Giving fluids, analgesics, IV Cipro and Flagyl. Departure Impression Primary Impression: Diverticulitis of intestine Disposition: [facility] HOSP Condition: Stable Transfer Time Spoke to Accepting Phy: 00:07 Transfer Progress Notes Accepted to [facility] by Dr. Sweet. At her request Dr. Lal from [facility]. surgery was also consulted and he would see the patient as a consult. Method of Transfer: EMS Departure-Patient Inst. Referrals: [facility] [place] (PCP) Primary Care Physician LOPEZ SHULTZ APRN (Family) Primary Care Physician SARI HAILE DO Aug 23, 2018 22:52
[2018-08-23] MEDS ORDERED: HYDROmorphone 2 MG/ML VIAL (DILAUDID) IV STA (22:53)
[2018-08-23 23:15] LABS: CLARITY,URINE CLOUDY; COLOR,URINE YELLOW
[2018-08-23 23:16] LABS: BILIRUBIN,URINE NEGATIVE (NEGATIVE); GLUCOSE, URINE (UA) NEGATIVE (NEGATIVE); KETONES,URINE NEGATIVE (NEGATIVE); NITRITE,URINE NEGATIVE (NEGATIVE); PROTEIN,URINE NEGATIVE (NEGATIVE)
[2018-08-23 23:17] LABS: BACTERIA,URINE 1+ /HPF; LEUKOCYTE ESTERASE ,URINE TRACE (NEGATIVE); RBC,URINE RARE /HPF; UROBILINOGEN,URINE 0.2 MG/DL (NORMAL); WBC,URINE 0-2 /HPF
[2018-08-23 23:31] LABS: HEMOGLOBIN 13.9 G/DL (11.5-16.0); RED CELL DISTRIBUTION WIDTH 13.6 % (10.0-14.5); WHITE BLOOD COUNT 11.8 10^3/uL (4.3-11.0)
[2018-08-23 23:32] LABS: MEAN PLATELET VOLUME 9.8 FL (7.4-10.4)
[2018-08-23] MEDS ORDERED: ONDANSETRON 4 MG/2 ML (SDV) Z0FRAN IVP ONE (23:45)
[2018-08-23 23:50] LABS: BUN/CREATININE RATIO 13; CARBON DIOXIDE 23 MMOL/L (21-32); CHLORIDE 102 MMOL/L (98-107); CREATININE SERUM 0.86 MG/DL (0.60-1.30); GFR ESTIMATED > 60; GLUCOSE 121 MG/DL (70-105); POTASSIUM 3.8 MMOL/L (3.6-5.0); SODIUM 139 MMOL/L (135-145)
[2018-08-23 23:51] LABS: ALANINE AMINOTRANSFERASE 24 U/L (0-55); ALBUMIN 3.8 GM/DL (3.2-4.5); ALKALINE PHOSPHATASE 64 U/L (40-136); BILIRUBIN,TOTAL 0.2 MG/DL (0.1-1.0); TOTAL PROTEIN 6.9 GM/DL (6.4-8.2)
[2018-08-24] MEDS ORDERED: HYDROmorphone 2 MG/ML VIAL (DILAUDID) IV STA (00:31)
[2018-08-24] MEDS ORDERED: ONDANSETRON 4 MG/2 ML (SDV) Z0FRAN IVP STA (00:31)
--- NOTE | 2018-08-24 01:49 | NUR ---
MARIA C ROJO admitted to room 429-1, with an admitting diagnosis of diverticulitis, on 08/24/18 from [facility] [place] via [facility], accompanied by EMS.MARIA C ROJO introduced to surroundings, call light, bed controls, phone, TV, temperature control, lights, meal times, smoking policy, visitor policy, side rail policy, bathrooms and showers. Patient Rights given to patient in the handbook. MARIA C ROJO verbalizes understanding that [facility] is not responsible for the loss or damage to any personal effects or valuables that are kept in the patients posession during their hospitalization.
[2018-08-24 02:21] VITALS: BP 116/57
[2018-08-24 04:00] VITALS: BP 119/58
[2018-08-24] MEDS ORDERED: HYDROmorphone 2 MG/ML VIAL (DILAUDID) IV PRN (04:45)
[2018-08-24 05:44] LABS: BASOPHILS % (AUTO) 0 % (0-10); EOSINOPHILS # (AUTO) 0.2 10^3/uL (0.0-0.3); EOSINOPHILS % (AUTO) 2 % (0-10); HEMATOCRIT 40 % (35-52); HEMOGLOBIN 13.4 G/DL (11.5-16.0); LYMPHOCYTES # (AUTO) 2.1 X 10^3 (1.0-4.0); LYMPHOCYTES % (AUTO) 25 % (12-44); MEAN CORPUSCULAR HEMOGLOBIN 27 PG (25-34); MEAN CORPUSCULAR HGB CONC 33 G/DL (32-36); MEAN CORPUSCULAR VOLUME 82 FL (80-99); MEAN PLATELET VOLUME 10.1 FL (7.4-10.4); MONOCYTES # (AUTO) 0.9 X 10^3 (0.0-1.0); MONOCYTES % (AUTO) 10 % (0-12); NEUTROPHILS # (AUTO) 5.1 X 10^3 (1.8-7.8); NEUTROPHILS % (AUTO) 62 % (42-75); PLATELET COUNT 252 10^3/uL (130-400); RED CELL DISTRIBUTION WIDTH 14.5 % (10.0-14.5); WHITE BLOOD COUNT 8.2 10^3/uL (4.3-11.0)
[2018-08-24 06:04] LABS: ALANINE AMINOTRANSFERASE 38 U/L (0-55); ALBUMIN 3.5 GM/DL (3.2-4.5); ALKALINE PHOSPHATASE 62 U/L (40-136); BILIRUBIN,TOTAL 0.4 MG/DL (0.1-1.0); BUN/CREATININE RATIO 14; CALCIUM 8.5 MG/DL (8.5-10.1); CARBON DIOXIDE 20 MMOL/L (21-32); CHLORIDE 106 MMOL/L (98-107); CREATININE SERUM 0.74 MG/DL (0.60-1.30); GFR ESTIMATED > 60; GLUCOSE 109 MG/DL (70-105); POTASSIUM 3.6 MMOL/L (3.6-5.0); SODIUM 137 MMOL/L (135-145); TOTAL PROTEIN 6.3 GM/DL (6.4-8.2)
[2018-08-24 07:54] VITALS: BP 102/52
[2018-08-24] MEDS ORDERED: NS IV 1000 ML 1,000 ML ONE (09:11)
[2018-08-24] MEDS ORDERED: ONDANSETRON 4 MG/2 ML (SDV) Z0FRAN ONE (09:11)
[2018-08-24] MEDS: NS IV 1000 ML 1,000 ML IV SCH ×3 (09:15→21:05)
[2018-08-24] MEDS: ONDANSETRON 4 MG/2 ML (SDV) Z0FRAN IVP PRN ×2 (09:15→14:36)
[2018-08-24] MEDS ORDERED: BREX4TAB PO (09:26)
[2018-08-24] MEDS ORDERED: FLU QUADRIvalent (5+ YOA) 2018-2019 (AFLURIA) 0.5 ML IM ONE (09:30)
[2018-08-24] MEDS ORDERED: METF500T3 PO (09:33)
[2018-08-24] MEDS: HYDROmorphone 2 MG/ML VIAL (DILAUDID) IV PRN ×3 (09:41→21:04)
[2018-08-24] MEDS: CIPROFLOXACIN IV 400MG/200ML 200 ML IV SCH ×2 (10:14→20:24)
[2018-08-24] MEDS: metroNIDAZOLE 500MG/100ML IVPB 100 ML IV SCH ×2 (11:26→17:42)
[2018-08-24 11:48] VITALS: BP 121/58
[2018-08-24] MEDS: oxyCODONE/APAP 5/325MG (PERCOCET 5) TABLET PO PRN ×2 (12:23→19:27)
--- NOTE | 2018-08-24 12:54 | History & Physical-Hospitalist ---
History of Present Illness HPI/Chief Complaint CC: Acute diverticulitis failed outpatient abx and pain meds and bowel rest HPI: This is a 33yoWF clinic patient of [facility] w/h/o diverticulitis resulting in resection 10 yrs ago who presented to the [facility] ER with recurrent diverticulitis unresolved after PO abx given along with pain meds and CLD orders given in ER last week. Dr Lal has been consulted and will continue bowel rest and IV abx and monitor closely. Source: patient, family, RN/MD Exam Limitations: no limitations Date Seen 08/24/18 Time Seen by a Provider: 12:30 Attending Physician Ara Sweet DO [facility] [place],[facility] Referring Physician Date of Admission Aug 24, 2018 at 00:30 Home Medications & Allergies Home Medications Reviewed patient Home Medication Reconciliation performed by pharmacy medication reconciliations factory maintenance technician and/or nursing. Patients Allergies have been reviewed. Allergies Allergies Coded Allergies buspirone (Verified Allergy, Intermediate, SEVERE ANXIETY, 11/27/17) aripiprazole (Verified Allergy, Unknown, Heart racing, 08/24/18) bismuth subsalicylate (Unverified Allergy, Unknown, NAUSEA, 11/27/17) latex (Unverified Allergy, Unknown, RASH, 11/27/17) meperidine (Unverified Allergy, Unknown, RASH, 11/27/17) promethazine (Unverified Allergy, Unknown, DIFFICULTY BREATHING, 11/27/17) Uncoded Allergies TAPE ( Adverse Reaction, Unknown, RASH, 09/15/13) Past Pixucpw-Vktqts-Kkfviy Hx Past Med/Social Hx: Reviewed Nursing Past Med/Soc Hx, Reviewed and Corrections made Patient Social History Marrital Status: (same gender marriage) 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[facility]) Alcohol Use: Denies Use Recreational Drug Use: No Smoking Status: Former Smoker (quit 08/14/18) Former Smoker, Quit: Aug 12, 2018 Type Used: Cigarettes 2nd Hand Smoke Exposure: No Physical Abuse Screen: No Sexual Abuse: No Recent Foreign Travel: No Contact w/other who traveled: No Recent Hopitalizations: No Recent Infectious Disease Expo: No Immunizations Up To Date Tetanus Booster (TDap): Unknown Seasonal Allergies Seasonal Allergies: No Past Medical History Surgeries: Abdominal, Cystectomy, Hysterectomy Currently Using CPAP: No Currently Using BIPAP: No Cardiac: High Cholesterol : No Reproductive: No Sexually Transmitted Disease: No HIV/AIDS: No Female Reproductive Disorders: Denies Hysterectomy Gastrointestinal: Gastroesophageal Reflux, Crohns Disease, Diverticulosis Musculoskeletal: Arthritis, Chronic Back Pain Loss of Vision: Bilateral Hearing Impairment: Denies Psychosocial: Anxiety, Bipolar, Depression History of Blood Disorders: No Adverse Reaction to Blood Theodore: No (HAS HAD BLOOD WITH NO REACTION) Review of Systems Constitutional: see HPI EENTM: no symptoms reported Respiratory: no symptoms reported Cardiovascular: no symptoms reported Gastrointestinal: abdominal pain (LLQ), loss of appetite, nausea Genitourinary: no symptoms reported Musculoskeletal: no symptoms reported Skin: no symptoms reported Psychiatric/Neurological: No Symptoms Reported All Other Systems Reviewed Negative Unless Noted: Yes Physical Exam Physical Exam Vital Signs Vital Signs - First Documented 08/23/18 08/24/18 22:46 01:00 Temp 98.8 Pulse 92 Resp 18 B/P (MAP) 134/71 (92) Pulse Ox 98 O2 Delivery Room Air Capillary Refill : Less Than 3 Seconds Height, Weight, BMI Height: 5'3.00" Weight: 305lbs. 0.0oz. 138.534553zg; 54.0 BMI Method:Stated General Appearance: No Apparent Distress, WD/WN, Obese Eyes: Right Eye Normal Inspection, Right Eye PERRL HEENT: PERRL/EOMI, Normal ENT Inspection, Pharynx Normal, Moist Mucous Membranes Neck: Full Range of Motion, Normal Inspection, Non Tender Respiratory: Chest Non Tender, Lungs Clear, Normal Breath Sounds, No Accessory Muscle Use, No Respiratory Distress Cardiovascular: Regular Rate, Rhythm, No Edema, No Gallop, No JVD, No Murmur, Normal Peripheral Pulses Gastrointestinal: Normal Bowel Sounds, No Organomegaly, No Pulsatile Mass, Tenderness (LLQ) Back: Normal Inspection, No CVA Tenderness, No Vertebral Tenderness Extremity: Normal Capillary Refill, Normal Inspection, Normal Range of Motion, Non Tender, No Calf Tenderness, No Pedal Edema Neurologic/Psychiatric: Alert, Oriented x3, No Motor/Sensory Deficits, Normal Mood/Affect Skin: Normal Color, Warm/Dry Lymphatic: No Adenopathy Results Results/Procedures Labs Laboratory Tests 08/23/18 23:05 08/24/18 05:09 Patient resulted labs reviewed. Assessment/Plan Admission Diagnosis Assessment: Refractory diverticulitis failed outpt PO abx and pain meds given in ER last week Partial colon resection 10 yrs ago Obesity HTN Former smoker quit 08/14/18 Plan: IVF IV abx Pain meds Dr Lal consultation is appreciated Admission Status: Inpatient Order (span 2 midnights) Reason for Inpatient Admission: Recurrent diverticulitis unresolved after PO abx and pain meds given in ER last week Diagnosis/Problems Diagnosis/Problems (1) Diverticulitis of intestine Status: Acute Qualifiers: Diverticulitis site: large intestine Diverticulitis bleeding: without bleeding Diverticulitis complication: unspecified complication status Qualified Codes: K57.32 - Diverticulitis of large intestine without perforation or abscess without bleeding (2) Obesity Status: Chronic Qualifiers: Obesity type: due to excess calories Obesity classification: adult class 3 (BMI >= 40) Serious obesity comorbidity presence: without serious comorbidity Body mass index: BMI 50.0-59.9 Qualified Codes: E66.01 - Morbid (severe) obesity due to excess calories; Z68.43 - Body mass index (BMI) 50-59.9 , adult (3) Hypertension Status: Chronic Qualifiers: Hypertension type: essential hypertension Qualified Codes: I10 - Essential (primary) hypertension (4) Emotional disorder Status: Chronic (5) GERD (gastroesophageal reflux disease) Status: Chronic Qualifiers: Esophagitis presence: without esophagitis Qualified Codes: K21.9 - Gastro- esophageal reflux disease without esophagitis Clinical Quality Measures DVT/VTE Risk/Contraindication: Risk Factor Score Per Nursin RFS Level Per Nursing on Admit: 2=Moderate ARA SWEET DO Aug 24, 2018 12:54
[2018-08-24] MEDS ORDERED: RT-ALBUTEROL SULF 2.5 MG/3 ML PRE-MIX VIAL IH PRN (13:00)
[2018-08-24] MEDS ORDERED: NON-FORMULARY MEDICATION 1 EA EA (Albuterol Sulfate 0.63 MG) IH SCH (13:00)
--- NOTE | 2018-08-24 13:28 | CONSULTATION REPORT ---
DATE OF SERVICE: 08/24/2018 ATTENDING PRIMARY PIPED BUTTONHOLE MACHINE OPERATOR: Ifeoma Coffey APRN. ADMITTING PHYSICIAN: Ara Sweet DO. HISTORY OF PRESENT ILLNESS: The patient is a 33-year-old female who presented to [facility] with persistent pain in the left lower abdominal quadrant. She was seen one week previous and underwent a CT scan, which did show signs of early diverticulitis. She states that she was placed on Augmentin; however, states that the pain persisted. She did not report any fever or chills and states that she did have bowel function at home; however, not since admission. She did have a slight elevation of white count 11.8; however, this has normalized since admission. At this time, we will treat her for an uncomplicated diverticulitis with bowel rest as well as IV antibiotics. PAST MEDICAL HISTORY: Complicated diverticulitis requiring colonic resection, Crohn disease, asthma, metabolic syndrome, irritable bowel and bipolar depression. PAST SURGICAL HISTORY: Laparoscopic robotic hysterectomy, open left-sided colon resection with anastomosis, laparoscopic cholecystectomy, section, and D and C. ALLERGIES: BUSPIRONE, BISMUTH, LATEX, MEPERIDINE, PROMETHAZINE AND TAPE. MEDICATIONS: Albuterol breathing treatments MDI 2 puffs q.4 hours p.r.n., asenapine 10 mg sublingual daily, atorvastatin 20 mg daily, brexpiprazole 0.5 mg daily, bupropion 150 mg b.i.d., cyclobenzaprine 10 mg p.r.n., dicyclomine 20 mg q.4 hours, fluticasone spray daily, tramadol p.r.n., metformin 500 mg daily, oxcarbazepine 300 mg b.i.d., Protonix 40 mg daily, and prednisone 20 mg p.r.n. SOCIAL HISTORY: Positive smoke, 20 pack years. Negative alcohol. FAMILY HISTORY: Noncontributory. VITAL SIGNS: Temperature is 98.0, blood pressure 121/58, pulse 80, respirations 18, and pulse ox 97% on room air. REVIEW OF SYSTEMS: Well-nourished female, currently in no acute distress. She is not experiencing any shortness of breath or difficulty breathing. No chest pain, palpitations or diaphoresis. Intermittent episodes of nausea, no vomiting. She was having loose bowel movements as well as flatus at home; however, not since admission. She reports slightly worsening left lower quadrant abdominal pain. No red blood per rectum, no dark tarry stools. No fever, chills, no recent inadvertent weight loss. All other review of systems is negative. PHYSICAL EXAMINATION: CHEST: Clear. Good breath sounds bilaterally. HEART: Regular, no murmurs. EXTREMITIES: No lower extremity edema, negative Homans sign. HEENT: No scleral icterus. NECK: No cervical lymphadenopathy. ABDOMEN: Soft, nondistended. There is mild discomfort in the left lower abdominal quadrant. No peritoneal signs. SKIN: Warm, dry. LABORATORY DATA: WBC is 8.2, hemoglobin 13.4, hematocrit 40, and platelets 252. BUN is 20, creatinine 11. ASSESSMENT AND PLAN: A 33-year-old female with a noncomplicated diverticulitis with failure of medical management as an outpatient and she is now admitted and we will continue with IV fluids as well as IV antibiotics and await bowel function as well as pain control. When she does have some bowel function, we will start to advance her diet. We will also recommend a followup colonoscopy in approximately 6 weeks. Job ID: [id number] DocumentID: [id number] Dictated Date: 08/24/2018 12:11:13 Mail Handlers Supervisor Date: 08/24/2018 13:27:40 Dictated By: GRACIELA RAMIREZ MD
[2018-08-24] MEDS: OXcarbazepine (TRILEPTAL) 300 MG TAB PO SCH ×2 (14:47→20:23)
[2018-08-24 16:00] VITALS: BP 115/63
[2018-08-24 20:00] VITALS: BP 105/63
[2018-08-24] MEDS: buPROPion SR 150 MG (WELLBUTRIN SR) TAB PO SCH (20:23)
[2018-08-24] MEDS: CYCLOBENZAPRINE 10 MG (FLEXERIL) TAB PO SCH (21:04)
[2018-08-25 00:10] VITALS: BP 115/55
[2018-08-25] MEDS: metroNIDAZOLE 500MG/100ML IVPB 100 ML IV SCH ×3 (01:37→17:10)
[2018-08-25 04:15] VITALS: BP 114/76
[2018-08-25] MEDS: HYDROmorphone 2 MG/ML VIAL (DILAUDID) IV PRN ×4 (04:41→21:37)
[2018-08-25] MEDS: NS IV 1000 ML 1,000 ML IV SCH ×2 (07:12→17:17)
[2018-08-25] MEDS: CIPROFLOXACIN IV 400MG/200ML 200 ML IV SCH ×2 (07:56→21:35)
[2018-08-25] MEDS: PANTOPRAZOLE 40 MG (PROTONIX) TAB PO SCH (07:57)
[2018-08-25] MEDS: oxyCODONE/APAP 5/325MG (PERCOCET 5) TABLET PO PRN ×2 (07:57→14:07)
[2018-08-25] MEDS: FLUTICASONE NASAL SPRAY (FLONASE) 16 GM BTL NS SCH (07:57)
[2018-08-25] MEDS: buPROPion SR 150 MG (WELLBUTRIN SR) TAB PO SCH ×2 (07:58→21:36)
[2018-08-25 08:00] VITALS: BP 119/64
[2018-08-25] MEDS: OXcarbazepine (TRILEPTAL) 300 MG TAB PO SCH ×3 (09:11→21:37)
--- NOTE | 2018-08-25 10:02 | Progress Note (SOAP) ---
Subjective Date Seen by a Provider: Aug 25, 2018 Time Seen by a Provider: 09:55 Subjective/Events-last exam Patient seen with Dr. Lal. Patient reports doing better. Pain is improving. Started eating more substantial food. No N/V. Passing gas but no BM yet. Ambulating well. No Fever/chills. Objective Exam Vital Signs Date Time Temp Pulse Resp B/P (MAP) Pulse Ox O2 Delivery O2 Flow Rate FiO2 08/25/18 08:00 96.5 67 18 119/64 (82) 99 Room Air 08/25/18 08:00 99 Room Air 08/25/18 04:15 97.2 81 18 114/76 (89) 98 Room Air 08/25/18 00:10 97.2 74 18 115/55 (75) 96 Room Air 08/24/18 20:00 96 Room Air 08/24/18 20:00 97.9 72 20 105/63 (77) 96 Room Air 08/24/18 16:00 97.2 73 20 115/63 (80) 99 Room Air 08/24/18 15:29 94 Room Air 08/24/18 11:48 98.0 80 18 121/58 (79) 97 Room Air I & O 08/25/18 06:59 Intake Total 1350 ml Output Total 2050 ml Balance -700 ml Capillary Refill : Less Than 3 Seconds General Appearance: No Apparent Distress, WD/WN Neck: Full Range of Motion, Normal Inspection, Non Tender, Supple Respiratory: Lungs Clear, Normal Breath Sounds, No Accessory Muscle Use, No Respiratory Distress Cardiovascular: Regular Rate, Rhythm, No Edema Gastrointestinal: normal bowel sounds, soft, tenderness (Mid lower abdomen) Extremity: Normal Capillary Refill, Normal Inspection, Normal Range of Motion Neurologic/Psychiatric: Alert, Oriented x3 Skin: Normal Color, Warm/Dry Assessment/Plan Assessment/Plan Assess & Plan/Chief Complaint A 33 year old female with uncomplicated diverticulitis. Continue with IV fluids and abx. Pain and nausea medications prn Encourage ambulation Continue diet Discussed with patient about needing a follow up colonoscopy in 6 weeks as an outpatient. Clinical Quality Measures DVT/VTE Risk/Contraindication: Risk Factor Score Per Nursin RFS Level Per Nursing on Admit: 2=Moderate CHRISTI MORRIS APRN Aug 25, 2018 10:02
[2018-08-25] MEDS ORDERED: PATIENT MAY USE OWN MED,SINGLE MED PO SCH (11:15)
[2018-08-25 12:00] VITALS: BP 126/69
--- NOTE | 2018-08-25 12:50 | Progress Note-Hospitalist ---
Subjective HPI/CC On Admission Date Seen by Provider: Aug 25, 2018 Time Seen by Provider: 12:15 CC: Acute diverticulitis failed outpatient abx and pain meds and bowel rest HPI: This is a 33yoWF clinic patient of [facility] w/h/o diverticulitis resulting in resection 10 yrs ago who presented to the [facility] ER with recurrent diverticulitis unresolved after PO abx given along with pain meds and CLD orders given in ER last week. Dr Lal has been consulted and will continue bowel rest and IV abx and monitor closely. Subjective/Events-last exam Patient doing much better Tolerating regular diet Pain is much improved We'll continue IV fluid and IV antibiotics per Dr. Lal the discharge tomorrow likely Needs BM so restarted Metformin at her request Review of Systems Gastrointestinal: Abdominal Pain Objective Exam Vital Signs Vital Signs Date Time Temp Pulse Resp B/P (MAP) Pulse Ox O2 Delivery O2 Flow Rate FiO2 08/25/18 08:00 96.5 67 18 119/64 (82) 99 Room Air Capillary Refill : Less Than 3 Seconds General Appearance: No Apparent Distress, WD/WN HEENT: PERRL/EOMI, Normal ENT Inspection, Pharynx Normal, Moist Mucous Membranes Neck: Full Range of Motion, Normal Inspection, Non Tender, Supple Respiratory: Lungs Clear, Normal Breath Sounds, No Accessory Muscle Use, No Respiratory Distress Cardiovascular: Regular Rate, Rhythm, No Edema Gastrointestinal: Normal Bowel Sounds, No Organomegaly, No Pulsatile Mass, Tenderness (LLQ) Back: Normal Inspection, No CVA Tenderness, No Vertebral Tenderness Extremity: Normal Capillary Refill, Normal Inspection, Normal Range of Motion Neurologic/Psychiatric: Alert, Oriented x3 Skin: Normal Color, Warm/Dry Lymphatic: No Adenopathy Results/Procedures Lab Patient resulted labs reviewed. Assessment/Plan Assessment and Plan Assess & Plan/Chief Complaint Assessment: Refractory diverticulitis failed outpt PO abx and pain meds given in ER last week Partial colon resection 10 yrs ago Obesity HTN Former smoker quit 08/14/18 Plan: IVF IV abx Pain meds Dr Lal consultation is appreciated Diagnosis/Problems Diagnosis/Problems (1) Diverticulitis of intestine Status: Acute Qualifiers: Diverticulitis site: large intestine Diverticulitis bleeding: without bleeding Diverticulitis complication: unspecified complication status Qualified Codes: K57.32 - Diverticulitis of large intestine without perforation or abscess without bleeding (2) Obesity Status: Chronic Qualifiers: Obesity type: due to excess calories Obesity classification: adult class 3 (BMI >= 40) Serious obesity comorbidity presence: without serious comorbidity Body mass index: BMI 50.0-59.9 Qualified Codes: E66.01 - Morbid (severe) obesity due to excess calories; Z68.43 - Body mass index (BMI) 50-59.9 , adult (3) Hypertension Status: Chronic Qualifiers: Hypertension type: essential hypertension Qualified Codes: I10 - Essential (primary) hypertension (4) Emotional disorder Status: Chronic (5) GERD (gastroesophageal reflux disease) Status: Chronic Qualifiers: Esophagitis presence: without esophagitis Qualified Codes: K21.9 - Gastro- esophageal reflux disease without esophagitis Clinical Quality Measures DVT/VTE Risk/Contraindication: Risk Factor Score Per Nursin RFS Level Per Nursing on Admit: 2=Moderate RACHEL MOREIRA DO Aug 25, 2018 12:50
[2018-08-25] MEDS: REXULTI 4 MG PO SCH (12:57)
[2018-08-25] MEDS: metFORMIN XR 500 MG (GLUCOPHAGE XR) TAB PO SCH ×2 (12:57→12:58)
--- NOTE | 2018-08-25 13:00 | NUR ---
WALKING IN HALLS, LOREN WELL, TOLERATING DIET WITHOUT NAUSEA, LARGE BROWN SOFT STOOL THIS AFTERNOON, IV SITE WITHOUT REDNESS OR SWELLING, VOIDING CLEAR YELLOW URINE, CALL LIGHT WITHIN REACH
[2018-08-25 16:00] VITALS: BP 115/57
[2018-08-25 20:05] VITALS: BP 121/62
[2018-08-25] MEDS: CYCLOBENZAPRINE 10 MG (FLEXERIL) TAB PO SCH (21:36)
[2018-08-25] MEDS: ONDANSETRON 4 MG/2 ML (SDV) Z0FRAN IVP PRN (21:44)
[2018-08-26] VITALS: BP 124/62
[2018-08-26] MEDS: metroNIDAZOLE 500MG/100ML IVPB 100 ML IV SCH ×2 (01:36→08:08)
[2018-08-26 04:05] VITALS: BP 108/63
[2018-08-26] MEDS: NS IV 1000 ML 1,000 ML IV SCH ×2 (05:47→08:08)
[2018-08-26] MEDS: HYDROmorphone 2 MG/ML VIAL (DILAUDID) IV PRN (06:48)
[2018-08-26 08:00] VITALS: BP 112/60
[2018-08-26] MEDS: CIPROFLOXACIN IV 400MG/200ML 200 ML IV SCH (08:04)
[2018-08-26] MEDS: OXcarbazepine (TRILEPTAL) 300 MG TAB PO SCH (08:05)
[2018-08-26] MEDS: buPROPion SR 150 MG (WELLBUTRIN SR) TAB PO SCH (08:05)
[2018-08-26] MEDS: PANTOPRAZOLE 40 MG (PROTONIX) TAB PO SCH (08:05)
[2018-08-26] MEDS: FLUTICASONE NASAL SPRAY (FLONASE) 16 GM BTL NS SCH (08:06)
[2018-08-26] MEDS: REXULTI 4 MG PO SCH (08:06)
--- NOTE | 2018-08-26 12:00 | NUR ---
IV REMOVED. RX AND INST AND VERBALIZED UNDERSTANDING. HOME MEDS RETURNED TO PT.
--- NOTE | 2018-08-26 12:02 | Discharge Summary ---
Diagnosis/Chief Complaint Date of Admission Aug 24, 2018 at 00:30 Date of Discharge 08/26/2018 Admission Diagnosis Admission Diagnosis Diverticulitis w/o bleeding or perforation Abdominal pain Obesity BMI 54 HTN Discharge Diagnosis See Above Discharge Summary-Simple/Stand Consultations Dr Lal, General Surgery Discharge Physical Examination Allergies: Coded Allergies: buspirone (Verified Allergy, Intermediate, SEVERE ANXIETY, 11/27/17) aripiprazole (Verified Allergy, Unknown, Heart racing, 08/24/18) bismuth subsalicylate (Unverified Allergy, Unknown, NAUSEA, 11/27/17) latex (Unverified Allergy, Unknown, RASH, 11/27/17) meperidine (Unverified Allergy, Unknown, RASH, 11/27/17) promethazine (Unverified Allergy, Unknown, DIFFICULTY BREATHING, 11/27/17) Uncoded Allergies: TAPE (Adverse Reaction, Unknown, RASH, 09/15/13) Vitals & I&Os Vital Sign - Last 12Hours Date Time Temp Pulse Resp B/P (MAP) Pulse Ox O2 Delivery O2 Flow Rate FiO2 08/26/18 08:00 97.8 78 18 112/60 (77) Room Air 08/26/18 08:00 99 Intake and Output 08/26/18 00:00 Intake Total 3280 ml Output Total 3500 ml Balance -220 ml General Appearance: Alert, Oriented X3, Cooperative, No Acute Distress HEENT: Mucous Memb Moist/[place] Respiratory: Clear to Auscultation, Normal Air Movement Cardiovascular: Regular Rate, No Murmurs Abdominal: Normal Bowel Sounds, Soft, No Masses, Other (mild ttp, no rebound or guarding) Extremities: No Edema, No Tenderness/Swelling Skin: No Rashes, No Breakdown Neuro: Normal Gait, Normal Speech, Strength at 5/5 X4 Ext, Sensation Intact, Cranial Nerves 3-12 NL Psych/Mental Status: Mental Status NL, Mood NL Hospital Course Was the Problem List Reviewed?: Yes See final discharge diagnosis. Other pending tests PATIENT NEEDS COLONOSCOPY IN 6-8 WEEKS FOLLOWING DISCHARGE Discussion & Recommendations 33 yo F that presented to ER with worsening abdominal pain after initiating PO antibiotics for diverticulitis as an outpatient. Patient was admitted due to worsening pain on Augmentin and h/o bowel resection 2/2 diverticulitis. She was started on IV Cipro and Flagyl with improvement in symptoms. Patient was seen by general surgery and it was recommended that patient get outpatient colonoscopy in 6-8 weeks following completion of treatment. Patient was d/c home with 5 more days of PO antibiotics and to continue bland diet. Discharge Condition at discharge stable Instructions to patient/family Please see electronic discharge instructions given to patient. Discharge Medications Reviewed and agree with Discharge Medication list on patient's Discharge Instruction sheet Clinical Quality Measures DVT/VTE Risk/Contraindication: Risk Factor Score Per Nursin RFS Level Per Nursing on Admit: 2=Moderate Copy Copies To 1: [facility] Isabela Vega HOLLY R MD Aug 26, 2018 12:01
[2018-08-26] MEDS ORDERED: METR500T PO (12:07)
[2018-08-26] MEDS ORDERED: CIPR-225 PO (12:07)
--- NOTE | 2018-08-26 12:09 | Discharge Instructions ---
Discharge [facility] Discharge Medications New, Converted or Re-Newed RX: Transmitted to Pharmacy New Medications: Ciprofloxacin HCl (Cipro) 500 Mg Tablet 500 MG PO BID, #10 TAB Metronidazole (Flagyl) 500 Mg Tablet 500 MG PO BID, #10 TAB Continued Medications: Albuterol Sulfate (Albuterol Sulfate) 0.63 Mg/3 Ml Vial.neb 0.63 MG IH PRN, INHALER Albuterol Sulfate (Proair Hfa) 1 Puff Puff 2 PUFF IH Q4H PRN for COUGH, PUFF 1 PUFF = 90 MCG Atorvastatin Calcium (Lipitor) 20 Mg Tablet 20 MG PO HS, TAB Brexpiprazole (Rexulti) 4 Mg Tablet 4 MG PO DAILY, TAB Bupropion HCl (Wellbutrin Sr) 150 Mg Tablet.er 150 MG PO BID for Smoking Cessation, TAB Cyclobenzaprine HCl (Cyclobenzaprine HCl) 10 Mg Tablet 10 MG PO PRN, TAB Fluticasone Propionate (Flonase Allergy Relief) 9.9 Ml [place].susp 1 SPRAY NS DAILY, #1 EACH 1 SPRAY EACH NARE DAILY Metformin HCl (Glucophage Xr) 500 Mg Tab.er.24h 500 MG PO HS, TAB Oxcarbazepine (Trileptal) 300 Mg Tablet 900 MG PO MORNING AND EVENING, TAB Oxcarbazepine (Trileptal) 300 Mg Tablet 600 MG PO AFTERNOON, TAB Pantoprazole Sodium (Protonix) 40 Mg Tablet.dr 40 MG PO DAILY, TAB Prednisone (Prednisone) 20 Mg Tab 20 MG PO BID PRN for CHROHNS, #11 TAB Take 3 tabs(60mg)daily, decrease by 1/2 tab(10mg)daily. Tramadol HCl (Tramadol HCl) 50 Mg Tablet 50 MG PO Q6H PRN for PAIN-MILD TO MODERATE, TAB Discontinued Medications: Dicyclomine HCl (Dicyclomine HCl) 20 Mg Tablet 20 MG PO Q4H PRN for ABDOMINAL PAIN, TAB Hydrocodone Bit/Acetaminophen (Hydrocodone/Acetaminophen 5/325mg Tablet) 1 Tab Tab 1 EACH PO Q6H PRN for BREAKTHROUGH PAIN MDD 10, #15 TAB 0 Refills Ibuprofen (Ibuprofen) 800 Mg Tablet 800 MG PO Q8H PRN for PAIN, TAB Patient Instructions Goal/Follow Up Appt: - F/u with PCP Isabela Mills in 7-10 days for hospital f.u - Dr Ron in 6-8 weeks for colonoscopy Patient Instructions: - Make sure to continue bland diet Activity & Diet Discharge Diet: Low Residue Activity as Tolerated: Yes RANDY BARRON MD Aug 26, 2018 12:05
--- NOTE | 2018-08-26 13:29 | NUR ---
DC'D PER WC WITH SO. VERBALIZED UNDERSTANDING OF DC INSTRUCTIONS.
== END 2018-08-26 13:30 | disposition home or self-care (01) | DRG 392 ==
LOC: EDUNIT# 22:35 → ER FS 22:36 → 4TH 08-24 00:30
PROVIDERS: ADMIT Internal Medicine; ATTEND Internal Medicine
DX: K57.32 Diverticulitis of large intestine without perforation or abscess without bleeding (principal); I10 Essential (primary) hypertension; E66.01 Morbid (severe) obesity due to excess calories; Z68.43 Body mass index [BMI] 50.0-59.9, adult; K50.919 Crohn's disease, unspecified, with unspecified complications; K21.9 Gastro-esophageal reflux disease without esophagitis; J45.909 Unspecified asthma, uncomplicated; E88.81 Metabolic syndrome and other insulin resistance; F31.9 Bipolar disorder, unspecified; E78.00 Pure hypercholesterolemia, unspecified; M19.91 Primary osteoarthritis, unspecified site; F41.9 Anxiety disorder, unspecified; Z88.8 Allergy status to other drugs, medicaments and biological substances; Z87.891 Personal history of nicotine dependence; Z91.040 Latex allergy status; Z90.710 Acquired absence of both cervix and uterus; Z90.49 Acquired absence of other specified parts of digestive tract
CPT/HCPCS: 36415; 80053; 81000; 84703; 85025; 85027; 94640; 94760; 96365; 96375; 96376

== ENCOUNTER 2018-10-15 07:26 | Day surgery (SDC) | payer MEDICAID ==
[~2018-10-15] VITALS: Ht 160 cm; Wt 137.0 kg
[~2018-10-15 07:26] MED LIST changes: +BREX4TAB PO; +CIPR-225 PO; +METF500T3 PO
[2018-10-15 07:30] VITALS: BP 122/76
[2018-10-15] MEDS ORDERED: LACTATED RINGERS 1,000 ML IV STA (07:42)
[2018-10-15] MEDS ORDERED: LACTATED RINGERS 1,000 ML IV ONE (07:44)
[2018-10-15] MEDS ORDERED: proPOfol 200 MG/20 ML (DIPRIVAN) VIAL IV ONE (08:05)
[2018-10-15] MEDS ORDERED: MIDAZOLAM 2 MG/2 ML (VERSED) VIAL ONE (08:05)
--- NOTE | 2018-10-15 08:14 | Progress Note-Pre Operative ---
Pre-Operative Progress Note H&P Reviewed The H&P was reviewed, patient examined and no changes noted. Date Seen by Provider: October 15, 2018 Time Seen by Provider: 08:14 Date H&P Reviewed: October 15, 2018 Time H&P Reviewed: 08:14 Pre-Operative Diagnosis: llq abd pain, hx diverticulitis MACARIO SINGH DO October 15, 2018 08:14
--- NOTE | 2018-10-15 08:30 | Progress Note-Post Operative ---
Post-Operative Progess Note Surgeon (s)/Plater Apprentice (s) Surgeon MACARIO SINGH DO Plater Apprentice: na Pre-Operative Diagnosis llq abd pain, hx diverticulitis Post-Operative Diagnosis minimal diverticulosis Procedure & Operative Findings Date of Procedure 10/15/18 Procedure Performed/Findings colonoscopy Anesthesia Type per blue prints trimmer Estimated Blood Loss Estimated blood loss (mL): none Specimens/Packing Specimens Removed na MACARIO SINGH DO October 15, 2018 08:30
--- NOTE | 2018-10-15 08:32 | Discharge Inst-Simple/Standard ---
Discharge Inst-Standard Patient Instructions/Follow Up Plan of Care/Instructions/FU: Patient needs repeat colonoscopy per routine screening guidelines, unless history of polyps or family history of colon cancer which would be 5 years. Follow up on as neede basis with Dr. Ron Activity as Tolerated: Yes Discharge Diet: Regular Diet (high fiber) MACARIO RON DO October 15, 2018 08:32
[2018-10-15 08:35] VITALS: BP 100/58
[2018-10-15 09:05] VITALS: BP 109/52
[2018-10-15 09:10] VITALS: BP 109/52
--- NOTE | 2018-10-15 09:10 | NUR ---
DENIES COMPLAINTS, ALERT. HAS BEEN UP TO BR TO VOID AND PASS FLATUS, GAIT STEADY. TAKING PO FLUIDS WITHOUT PROBLEM. REQUESTING DISMISSAL.
--- NOTE | 2018-10-15 12:14 | Anesthesia-General Post-Op ---
MAC Patient Condition Mental Status/LOC: Same as Preop Cardiovascular: Satisfactory Nausea/Vomiting: Absent Respiratory: Satisfactory Pain: Controlled Complications: Absent Post Op Complications Complications None Follow Up Care/Instructions Patient Instructions None needed. Anesthesiology Discharge Order Discharge Order Patient is doing well, no complaints, stable vital signs, no apparent adverse anesthesia problems. No complications reported per nursing. VIVIANE ESTRELLA CRNA October 15, 2018 12:14
--- NOTE | 2018-10-15 13:18 | OPERATIVE REPORT ---
DATE OF SERVICE: 10/15/2018 PREOPERATIVE DIAGNOSIS: Left lower quadrant abdominal pain, history of diverticulitis. POSTOPERATIVE DIAGNOSIS: Diverticulosis. PROCEDURE: Colonoscopy. SURGEON: Macario Ron DO ANESTHESIA: Per FACULTY MEMBER. ESTIMATED BLOOD LOSS: None. COMPLICATIONS: None. INDICATIONS: The patient is a 33-year-old female with left lower quadrant abdominal pain. She has had recent history of diverticulitis. She was recommended a colonoscopy for further evaluation. She understands risks and benefits of procedure and wished to proceed with procedure. Consent was signed in the chart. PROCEDURE: The patient was taken to the endoscopy suite, placed in left lateral recumbent position. Timeout was performed. Digital rectal exam was performed. There was no palpable polyps, masses or ulcerations. Scope was inserted in the rectum and advanced all the way to cecum with minimal difficulty. Prep was adequate. Scope was then slowly retracted back. There were no polyps, masses or ulcerations in the cecum, ascending, transverse and descending colon. Within the sigmoid colon, a very minimal amount of diverticulosis present. Scope was then slowly retracted into the rectum, where it was also retroflexed noting no other pathology. Scope was returned to its normal position, slowly withdrawn until completely removed. The patient tolerated procedure well without any complications. She was taken to recovery room in stable condition. RECOMMENDATIONS: The patient will need repeat colonoscopy for routine screening guidelines unless history of colon polyps or family history of colon cancer, which then be 5 years. If she has any issues before that she should be seen at that time. Job ID: [id number] DocumentID: [id number] Dictated Date: 10/15/2018 08:34:24 Car Inspector Date: 10/15/2018 13:17:39 Dictated By: MACARIO RON DO
== END 2018-10-15 09:10 | disposition home or self-care (01) ==
LOC: ENDO 07:26
PROVIDERS: ATTEND Surgery
DX: K57.30 Diverticulosis of large intestine without perforation or abscess without bleeding (principal); J45.909 Unspecified asthma, uncomplicated; F17.210 Nicotine dependence, cigarettes, uncomplicated; K21.9 Gastro-esophageal reflux disease without esophagitis; E66.01 Morbid (severe) obesity due to excess calories; Z68.43 Body mass index [BMI] 50.0-59.9, adult; Z79.84 Long term (current) use of oral hypoglycemic drugs; Z79.899 Other long term (current) drug therapy

== ENCOUNTER 2019-01-01 18:02 | Emergency (ER) | payer MEDICAID ==
[~2019-01-01] VITALS: Ht 160 cm; Wt 123.4 kg
--- OUTSIDE RECORDS SUMMARY | 2019-01-01 18:11 | XMS REPORT | Continuity of Care Document ---
Author Organization Unknown Address Unknown Allergies Active Description Code Type Severity Reaction Onset Reported/Identified Relationship to Patient Clinical Status Yes TAPE TAPE Unknown RASH 09/15/2013 Yes buspirone [id number] Drug Allergy Moderate SEVERE ANXIETY 11/27/2017 Yes bismuth subsalicylate [id number] Drug Allergy Unknown NAUSEA 11/27/2017 Yes latex [id number] Drug Allergy Unknown RASH 11/27/2017 Yes meperidine [id number] Drug Allergy Unknown RASH 11/27/2017 Yes promethazine [id number] Drug Allergy Unknown DIFFICULTY SANDI 11/27/2017 Yes aripiprazole [id number] Drug Allergy Unknown Heart racing 08/24/2018 Medications There is no data. Problems Date Dx Coded Attending Type Code Diagnosis Diagnosed By 09/18/2013 LEONARD SOSA MD Ot 218.2 SUBSEROUS LEIOMYOMA 09/18/2013 LEONARD SOSA MD Ot 614.6 FEM PELVIC PERITON ADH-POST-OP/INF 09/18/2013 LEONARD SOSA MD, Ot 617.3 PELV PERIT ENDOMETRIOSIS 09/18/2013 LEONARD SOSA MD Ot 618.1 UTERINE PROLAPSE 09/18/2013 LEONARD SOSA MD, Ot 620.2 OVARIAN CYST NEC/NOS 09/18/2013 LEONARD SOSA MD, Ot 620.8 NONINFL DIS OVA/ADNX NEC 09/18/2013 LEONARD SOSA MD Ot 626.2 EXCESSIVE MENSTRUATION 09/18/2013 LEONARD SOSA MD, Ot 626.8 MENSTRUAL DISORDER NEC 09/18/2013 LEONARD SOSA MD Ot V03.82 PROPHYLACTIC VACC AGAINST STREPTOCOCCUS 11/20/2017 LEONARD SOSA MD, Ot 626.2 EXCESSIVE MENSTRUATION 11/20/2017 LEONARD SOSA MD, Ot V72.63 PRE-PROCEDURAL LABORATORY EXAMINATION 11/20/2017 LEONARD SOSA MD, Ot V72.84 EXAM PRE-OPERATIVE NOS 11/20/2017 LEONARD SOSA MD, Ot 626.2 EXCESSIVE MENSTRUATION 11/20/2017 LEONARD SOSA MD, Ot V72.63 PRE-PROCEDURAL LABORATORY EXAMINATION 11/20/2017 LEONARD SOSA MD, Ot V72.84 EXAM PRE-OPERATIVE NOS 11/21/2017 MACARIO SINGH DO Ot K21.9 GASTRO-ESOPHAGEAL REFLUX DISEASE WITHOUT 11/21/2017 MACARIO SINGH DO Ot K50.90 CROHN'S DISEASE, UNSPECIFIED, WITHOUT CO 11/21/2017 MACARIO SINGH DO Ot Z01.818 ENCOUNTER FOR OTHER PREPROCEDURAL EXAMIN 11/27/2017 LEONARD SOSA MD Ot 626.2 EXCESSIVE MENSTRUATION 11/27/2017 LEONARD SOSA MD, Ot V72.63 PRE-PROCEDURAL LABORATORY EXAMINATION 11/27/2017 LEONARD SOSA MD, Ot V72.84 EXAM PRE-OPERATIVE NOS 11/27/2017 MACARIO SINGH DO Ot E11.9 TYPE 2 DIABETES MELLITUS WITHOUT COMPLIC 11/27/2017 MACARIO SINGH DO Ot F17.210 NICOTINE DEPENDENCE, CIGARETTES, UNCOMPL 11/27/2017 MACARIO SINGH DO Ot G47.33 OBSTRUCTIVE SLEEP APNEA (ADULT) (PEDIATR 11/27/2017 MACARIO SINGH DO Ot J45.909 UNSPECIFIED ASTHMA, UNCOMPLICATED 11/27/2017 MACARIO SINGH DO Ot K29.70 GASTRITIS, UNSPECIFIED, WITHOUT BLEEDING 11/27/2017 MACARIO SINGH DO Ot 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 11/27/2017 MACARIO SINGH DO, Ot K57.30 DVRTCLOS OF LG INT W/O PERFORATION OR AB 11/27/2017 MACARIO SINGH DO Ot Z79.52 HAND LAUNDERER (CURRENT) USE OF SYSTEMIC STER 11/27/2017 MACARIO SINGH DO Ot Z79.84 HAND LAUNDERER (CURRENT) USE OF ORAL HYPOGLYC 11/27/2017 MACARIO SINGH DO Ot Z79.899 OTHER HAND LAUNDERER (CURRENT) DRUG THERAPY 11/28/2017 MACARIO SINGH DO Ot E11.9 TYPE 2 DIABETES MELLITUS WITHOUT COMPLIC 11/28/2017 MACARIO SINGH DO Ot F17.210 NICOTINE DEPENDENCE, CIGARETTES, UNCOMPL 11/28/2017 MACARIO SINGH DO Ot G47.33 OBSTRUCTIVE SLEEP APNEA (ADULT) (PEDIATR 11/28/2017 MACARIO SINGH DO Ot J45.909 UNSPECIFIED ASTHMA, UNCOMPLICATED 11/28/2017 MACARIO SINGH DO Ot K29.70 GASTRITIS, UNSPECIFIED, WITHOUT BLEEDING 11/28/2017 MACARIO SINGH DO Ot 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 11/28/2017 MACARIO SINGH DO Ot K57.30 DVRTCLOS OF LG INT W/O PERFORATION OR AB 11/28/2017 MACARIO SINGH DO Ot Z79.52 HAND LAUNDERER (CURRENT) USE OF SYSTEMIC STER 11/28/2017 MACARIO SINGH DO Ot Z79.84 HAND LAUNDERER (CURRENT) USE OF ORAL HYPOGLYC 11/28/2017 MACARIO SINGH DO Ot Z79.899 OTHER HAND LAUNDERER (CURRENT) DRUG THERAPY 12/19/2017 BRYSON SHEPHERD CLINICAL STUDIES SPECIALIST Ot Z12.31 ENCNTR SCREEN MAMMOGRAM FOR MALIGNANT NE 01/04/2018 BRYSON SHEPHERD APRN Ot Z12.31 ENCNTR SCREEN MAMMOGRAM FOR MALIGNANT NE 08/17/2018 ETHAN HUANG MD Ot E78.00 PURE HYPERCHOLESTEROLEMIA, UNSPECIFIED 08/17/2018 ETHAN HUANG MD Ot F31.9 BIPOLAR DISORDER, UNSPECIFIED 08/17/2018 ETHAN HUANG MD Ot F41.9 ANXIETY DISORDER, UNSPECIFIED 08/17/2018 ETHAN HUANG MD Ot F60.9 PERSONALITY DISORDER, UNSPECIFIED 08/17/2018 ETHAN HUANG MD Ot G47.30 SLEEP APNEA, UNSPECIFIED 08/17/2018 ETHAN HUANG MD Ot J45.909 UNSPECIFIED ASTHMA, UNCOMPLICATED 08/17/2018 ETHAN HUANG MD Ot K57.32 DVTRCLI OF LG INT W/O PERFORATION OR ABS 08/17/2018 ETHAN HUANG MD Ot R10.32 LEFT LOWER QUADRANT PAIN 08/17/2018 ETHAN HUANG MD Ot Z79.51 HAND LAUNDERER (CURRENT) USE OF INHALED STERO 08/17/2018 ETHAN HUANG MD Ot Z79.52 [facility] (CURRENT) USE OF SYSTEMIC STER 08/17/2018 ETHAN HUANG MD Ot Z87.19 PERSONAL HISTORY OF OTHER DISEASES OF TH 08/17/2018 ETHAN HUANG MD Ot Z87.442 PERSONAL HISTORY OF URINARY CALCULI 08/17/2018 ETHAN HUANG MD Ot Z87.891 PERSONAL HISTORY OF NICOTINE DEPENDENCE 08/17/2018 ETHAN HUANG MD Ot Z88.8 ALLERGY STATUS TO OT DRUG/MEDS/BIOL SUB 08/17/2018 ETHAN HUANG MD Ot Z90.710 ACQUIRED ABSENCE OF BOTH CERVIX AND UTER 08/17/2018 ETHAN HUANG MD Ot Z91.040 LATEX ALLERGY STATUS 08/17/2018 ETHAN HUANG MD Ot Z91.048 OTHER NONMEDICINAL SUBSTANCE ALLERGY STA 08/17/2018 LEONARD SOSA MD Ot 626.2 EXCESSIVE MENSTRUATION 08/17/2018 LEONARD SOSA MD Ot V72.63 PRE-PROCEDURAL LABORATORY EXAMINATION 08/17/2018 LEONARD SOSA MD, Ot V72.84 EXAM PRE-OPERATIVE NOS 08/17/2018 BRYSON SHEPHERD APRN Ot Z12.31 ENCNTR SCREEN MAMMOGRAM FOR MALIGNANT NE 08/20/2018 ETHAN HUANG MD Ot E78.00 PURE HYPERCHOLESTEROLEMIA, UNSPECIFIED 08/20/2018 ETHAN HUANG MD Ot F31.9 BIPOLAR DISORDER, UNSPECIFIED 08/20/2018 ETHAN HUANG MD Ot F41.9 ANXIETY DISORDER, UNSPECIFIED 08/20/2018 ETHAN HUANG MD Ot F60.9 PERSONALITY DISORDER, UNSPECIFIED 08/20/2018 ETHAN HUANG MD Ot G47.30 SLEEP APNEA, UNSPECIFIED 08/20/2018 ETHAN HUANG MD Ot J45.909 UNSPECIFIED ASTHMA, UNCOMPLICATED 08/20/2018 ETHAN HUANG MD Ot K57.32 DVTRCLI OF LG INT W/O PERFORATION OR ABS 08/20/2018 ETHAN HUANG MD Ot R10.32 LEFT LOWER QUADRANT PAIN 08/20/2018 ETHAN HUANG MD Ot Z79.51 HAND LAUNDERER (CURRENT) USE OF INHALED STERO 08/20/2018 ETHAN HUANG MD Ot Z79.52 HAND LAUNDERER (CURRENT) USE OF SYSTEMIC STER 08/20/2018 ETHAN HUANG MD Ot Z87.19 PERSONAL HISTORY OF OTHER DISEASES OF TH 08/20/2018 ETHAN HUANG MD Ot Z87.442 PERSONAL HISTORY OF URINARY CALCULI 08/20/2018 ETHAN HUANG MD Ot Z87.891 PERSONAL HISTORY OF NICOTINE DEPENDENCE 08/20/2018 ETHAN HUANG MD Ot Z88.8 ALLERGY STATUS TO [facility] DRUG/MEDS/BIOL SUB 08/20/2018 ETHAN HUANG MD Ot Z90.710 ACQUIRED ABSENCE OF BOTH CERVIX AND UTER 08/20/2018 ETHAN HUANG MD Ot Z91.040 LATEX ALLERGY STATUS 08/20/2018 ETHAN HUANG MD Ot Z91.048 OTHER NONMEDICINAL SUBSTANCE ALLERGY STA 08/26/2018 RACHEL MOREIRA DO Ot E66.01 MORBID (SEVERE) OBESITY DUE TO EXCESS CA 08/26/2018 RACHEL MORIERA DO Ot E78.00 PURE HYPERCHOLESTEROLEMIA, UNSPECIFIED 08/26/2018 RACHEL MOREIRA DO Ot E88.81 METABOLIC SYNDROME 08/26/2018 RACHEL MOREIRA DO Ot F31.9 BIPOLAR DISORDER, UNSPECIFIED 08/26/2018 RACHEL MOREIRA DO Ot F41.9 ANXIETY DISORDER, UNSPECIFIED 08/26/2018 RACHEL MOREIRA DO Ot I10 ESSENTIAL (PRIMARY) HYPERTENSION 08/26/2018 RACHEL MOREIRA DO Ot J45.909 UNSPECIFIED ASTHMA, UNCOMPLICATED 08/26/2018 RACHEL MOREIRA DO Ot K21.9 GASTRO-ESOPHAGEAL REFLUX DISEASE WITHOUT 08/26/2018 RACHEL MOREIRA DO Ot K50.919 CROHN'S DISEASE, UNSPECIFIED, WITH UNSPE 08/26/2018 RACHEL MOREIRA DO Ot K57.32 DVTRCLI OF LG INT W/O PERFORATION OR ABS 08/26/2018 RACHEL MOREIRA DO Ot M19.91 PRIMARY OSTEOARTHRITIS, UNSPECIFIED SITE 08/26/2018 RACHEL MOREIRA DO Ot Z68.43 BODY MASS INDEX (BMI) 50-59.9, ADULT 08/26/2018 RACHEL MOREIRA DO Ot Z87.891 PERSONAL HISTORY OF NICOTINE DEPENDENCE 08/26/2018 RACHEL MOREIRA DO Ot Z88.8 ALLERGY STATUS TO OTH DRUG/MEDS/BIOL SUB 08/26/2018 RACHEL MOREIRA DO Ot Z90.49 ACQUIRED ABSENCE OF OTHER SPECIFIED PART 08/26/2018 RACHEL MOREIRA DO Ot Z90.710 ACQUIRED ABSENCE OF BOTH CERVIX AND UTER 08/26/2018 RACHEL MOREIRA DO Ot Z91.040 LATEX ALLERGY STATUS 10/11/2018 MACARIO SINGH DO Ot Z01.818 ENCOUNTER FOR OTHER PREPROCEDURAL EXAMIN 10/11/2018 MACARIO SINGH DO Ot Z01.818 ENCOUNTER FOR OTHER PREPROCEDURAL EXAMIN 10/11/2018 MACARIO SINGH DO Ot Z01.818 ENCOUNTER FOR OTHER PREPROCEDURAL EXAMIN 10/15/2018 MACARIO SINGH DO Ot E66.01 MORBID (SEVERE) OBESITY DUE TO EXCESS CA 10/15/2018 MACARIO SINGH DO Ot F17.210 NICOTINE DEPENDENCE, CIGARETTES, UNCOMPL 10/15/2018 MACARIO SINGH DO Ot J45.909 UNSPECIFIED ASTHMA, UNCOMPLICATED 10/15/2018 MACARIO SINGH DO Ot K21.9 GASTRO-ESOPHAGEAL REFLUX DISEASE WITHOUT 10/15/2018 MACARIO SINGH DO Ot K57.30 DVRTCLOS OF LG INT W/O PERFORATION OR AB 10/15/2018 MACARIO SINGH DO Ot Z68.43 BODY MASS INDEX (BMI) 50-59.9, ADULT 10/15/2018 MACARIO SINGH DO Ot Z79.84 HAND LAUNDERER (CURRENT) USE OF ORAL HYPOGLYC 10/15/2018 MACARIO SINGH DO Ot Z79.899 OTHER HAND LAUNDERER (CURRENT) DRUG THERAPY 10/18/2018 MACARIO SINGH DO Ot E66.01 MORBID (SEVERE) OBESITY DUE TO EXCESS CA 10/18/2018 MACARIO SINGH DO Ot F17.210 NICOTINE DEPENDENCE, CIGARETTES, UNCOMPL 10/18/2018 MACARIO SINGH DO Ot J45.909 UNSPECIFIED ASTHMA, UNCOMPLICATED 10/18/2018 MACARIO SINGH DO Ot K21.9 GASTRO-ESOPHAGEAL REFLUX DISEASE WITHOUT 10/18/2018 MACARIO SINGH DO Ot K57.30 DVRTCLOS OF LG INT W/O PERFORATION OR AB 10/18/2018 MACARIO SINGH DO Ot Z68.43 BODY MASS INDEX (BMI) 50-59.9, ADULT 10/18/2018 MACARIO SINGH DO Ot Z79.84 HAND LAUNDERER (CURRENT) USE OF ORAL HYPOGLYC 10/18/2018 MACARIO SINGH DO Ot Z79.899 OTHER HAND LAUNDERER (CURRENT) DRUG THERAPY Procedures There is no data. Results Test Result Range CMP - 02/26/17 15:42 Glucose, Serum 92 mg/dL 65-99 BUN 9 mg/dL 6-20 Creatinine, Serum 0.62 mg/dL 0.57-1.00 eGFR If NonAfricn Am 119 mL/min/1.73 >59 eGFR If Africn Am 137 mL/min/1.73 >59 BUN/Creatinine Ratio 15 9-23 Sodium, Serum 142 mmol/L 134-144 Potassium, Serum 4.2 mmol/L 3.5-5.2 Chloride, Serum 101 mmol/L 96-106 Carbon Dioxide, Total 23 mmol/L 18-29 Calcium, Serum 9.1 mg/dL 8.7-10.2 Protein, Total, Serum 6.9 g/dL 6.0-8.5 Albumin, Serum 4.3 g/dL 3.5-5.5 Globulin, Total 2.6 g/dL 1.5-4.5 A/G Ratio 1.7 1.2-2.2 Bilirubin, Total <0.2 mg/dL 0.0-1.2 Alkaline Phosphatase, S 73 IU/L 39-117 AST (SGOT) 17 IU/L 0-40 ALT (SGPT) 24 IU/L 0-32 INSULIN LEVEL - 03/02/17 08:18 Insulin 44.9 uIU/mL 2.6-24.9 THYROID ANALYZER - 05/21/17 10:13 TSH 1.80 mIU/L NRG TISSUE, SPECIMEN A - 12/17/17 15:29 A SOURCE NRG A GROSS DESCRIPTION NRG A DIAGNOSIS NRG PDM - PAIN MGMT (PROFILE 3 WITH CONFIRMATION) - 03/15/18 13:24 Prescribed Drug 1 Tramadol NRG Creatinine 260.4 mg/dL > or=20.0 pH 6.49 4.5 - 9.0 Oxidant NEGATIVE mcg/mL <200 Amphetamines NEGATIVE ng/mL <500 medMATCH Amphetamines CONSISTENT NRG Benzodiazepines NEGATIVE CONFIRMED ng/mL <100 Marijuana Metabolite NEGATIVE ng/mL <20 medMATCH Marijuana Metab CONSISTENT NRG Cocaine Metabolite NEGATIVE ng/mL <150 medMATCH Cocaine Metab CONSISTENT NRG Opiates NEGATIVE ng/mL <100 medMATCH Opiates CONSISTENT NRG Oxycodone NEGATIVE ng/mL <100 medMATCH Oxycodone CONSISTENT NRG COMMENT NRG Alphahydroxyalprazolam NEGATIVE ng/mL <25 medMATCH aOH alprazolam CONSISTENT NRG Alphahydroxymidazolam NEGATIVE ng/mL <50 medMATCH aOH midazolam CONSISTENT NRG Alphahydroxytriazolam NEGATIVE ng/mL <50 medMATCH aOH triazolam CONSISTENT NRG Aminoclonazepam NEGATIVE ng/mL <25 medMATCH Aminoclonazepam CONSISTENT NRG Hydroxyethylflurazepam NEGATIVE ng/mL <50 medMATCH OH,Et flurazepam CONSISTENT NRG Lorazepam NEGATIVE ng/mL <50 medMATCH Lorazepam CONSISTENT NRG Nordiazepam NEGATIVE ng/mL <50 medMATCH Nordiazepam CONSISTENT NRG Oxazepam NEGATIVE ng/mL <50 medMATCH Oxazepam CONSISTENT NRG Temazepam NEGATIVE ng/mL <50 medMATCH Temazepam CONSISTENT NRG LIPID PANEL - 03/29/18 10:45 CHOLESTEROL, TOTAL 145 mg/dL <200 HDL CHOLESTEROL 44 mg/dL >50 TRIGLYCERIDES 147 mg/dL <150 LDL-CHOLESTEROL 77 mg/dL (calc) NRG CHOL/HDLC RATIO 3.3 (calc) <5.0 NON HDL CHOLESTEROL 101 mg/dL (calc) <130 CMP - 03/29/18 10:45 GLUCOSE 73 mg/dL 65-99 UREA NITROGEN (BUN) 7 mg/dL 7-25 CREATININE 0.70 mg/dL 0.50-1.10 eGFR NON-AFR. CITIZEN OF [place] 112 mL/min/1.73m2 > OR=60 eGFR 130 mL/min/1.73m2 > OR=60 BUN/CREATININE RATIO NOT APPLICABLE (calc) 6-22 SODIUM 139 mmol/L 135-146 POTASSIUM 4.4 mmol/L 3.5-5.3 CHLORIDE 104 mmol/L 98-110 CARBON DIOXIDE 21 mmol/L 20-32 CALCIUM 9.3 mg/dL 8.6-10.2 PROTEIN, TOTAL 7.1 g/dL 6.1-8.1 ALBUMIN 4.3 g/dL 3.6-5.1 GLOBULIN 2.8 g/dL (calc) 1.9-3.7 ALBUMIN/GLOBULIN RATIO 1.5 (calc) 1.0-2.5 BILIRUBIN, TOTAL 0.3 mg/dL 0.2-1.2 ALKALINE PHOSPHATASE 70 U/L 33-115 AST 21 U/L 10-30 ALT 21 U/L 6-29 THYROID ANALYZER - 03/29/18 10:45 TSH 1.30 mIU/L NRG Complete urinalysis with reflex to culture - 08/17/18 07:40 Urine color determination YELLOW NRG Urine clarity determination CLEAR NRG Urine pH measurement by test strip 7.5 5-9 Specific gravity of urine by test strip 1.010 1.016-1.022 Urine protein assay by test strip, semi-quantitative NEGATIVE NEGATIVE Urine glucose detection by automated test strip NEGATIVE NEGATIVE Erythrocytes detection in urine sediment by light microscopy TRACE NEGATIVE Urine ketones detection by automated test strip NEGATIVE NEGATIVE Urine nitrite detection by test strip NEGATIVE NEGATIVE Urine total bilirubin detection by test strip NEGATIVE NEGATIVE Urine urobilinogen measurement by automated test strip (mass/volume) 0.2 mg/dL NORMAL Urine leukocyte esterase detection by dipstick 1+ NEGATIVE Automated urine sediment erythrocyte count by microscopy (number/high power field) [HPF] NRG Automated urine sediment leukocyte count by microscopy (number/high power field) [HPF] NRG Bacteria detection in urine sediment by light microscopy MODERATE NRG Squamous epithelial cells detection in urine sediment by light microscopy 25-50 NRG Crystals detection in urine sediment by light microscopy NONE NRG Casts detection in urine sediment by light microscopy NONE NRG Mucus detection in urine sediment by light microscopy NEGATIVE NRG Complete urinalysis with reflex to culture NO NRG Complete blood count (CBC) with automated white blood cell (WBC) differential - 08/17/18 08:00 Blood leukocytes automated count (number/volume) 7.8 10*3/uL 4.3-11.0 Blood erythrocytes automated count (number/volume) 5.75 10*6/uL 4.35-5.85 Venous blood hemoglobin measurement (mass/volume) 15.6 g/dL 11.5-16.0 Blood hematocrit (volume fraction) 48 % 35-52 Automated erythrocyte mean corpuscular volume 83 [foz_us] 80-99 Automated erythrocyte mean corpuscular hemoglobin (mass per erythrocyte) 27 pg 25-34 Automated erythrocyte mean corpuscular hemoglobin concentration measurement (mass/volume) 33 g/dL 32-36 Automated erythrocyte distribution width ratio 14.6 % 10.0- 14.5 Automated blood platelet count (count/volume) 279 10*3/uL 130-400 Automated blood platelet mean volume measurement 9.5 [foz_us] 7.4-10.4 Automated blood neutrophils/100 leukocytes 57 % 42-75 Automated blood lymphocytes/100 leukocytes 31 % 12-44 Blood monocytes/100 leukocytes 9 % 0-12 Automated blood eosinophils/100 leukocytes 3 % 0-10 Automated blood basophils/100 leukocytes 1 % 0-10 Blood neutrophils automated count (number/volume) 4.4 10*3 1.8-7.8 Blood lymphocytes automated count (number/volume) 2.4 10*3 1.0-4.0 Blood monocytes automated count (number/volume) 0.7 10*3 0.0- 1.0 Automated eosinophil count 0.2 10*3/uL 0.0-0.3 Automated blood basophil count (count/volume) 0.0 10*3/uL 0.0-0.1 Urine beta human chorionic gonadotropin (hCG) measurement - 08/17/18 08:00 Urine beta human chorionic gonadotropin (hCG) measurement NEGATIVE NEGATIVE Comprehensive metabolic panel - 08/17/18 08:00 Serum or plasma sodium measurement (moles/volume) 140 mmol/L 135-145 Serum or plasma potassium measurement (moles/volume) 3.8 mmol/L 3.6-5.0 Serum or plasma chloride measurement (moles/volume) 106 mmol/L 98-107 Carbon dioxide 15 mmol/L 21-32 Serum or plasma anion gap determination (moles/volume) 19 mmol/L 5-14 Serum or plasma urea nitrogen measurement (mass/volume) 6 mg/dL 7-18 Serum or plasma creatinine measurement (mass/volume) 0.63 mg/dL 0.60-1.30 Serum or plasma urea nitrogen/creatinine mass ratio 10 NRG Serum or plasma creatinine measurement with calculation of estimated glomerular filtration rate > NRG Serum or plasma glucose measurement (mass/volume) 90 mg/dL 70-105 Serum or plasma calcium measurement (mass/volume) 8.1 mg/dL 8.5-10.1 Serum or plasma total bilirubin measurement (mass/volume) 0.3 mg/dL 0.1-1.0 Serum or plasma alkaline phosphatase measurement (enzymatic activity/volume) 64 U/L 40-136 Serum or plasma aspartate aminotransferase measurement (enzymatic activity/volume) 14 U/L 5-34 Serum or plasma alanine aminotransferase measurement (enzymatic activity/volume) 17 U/L 0-55 Serum or plasma protein measurement (mass/volume) 6.6 g/dL 6.4-8.2 Serum or plasma albumin measurement (mass/volume) 3.6 g/dL 3.2-4.5 CALCIUM CORRECTED 8.4 mg/dL 8.5-10.1 Complete urinalysis with reflex to culture - 08/23/18 22:43 Urine color determination YELLOW NRG Urine clarity determination CLOUDY NRG Urine pH measurement by test strip 7.0 5-9 Specific gravity of urine by test strip 1.020 1.016-1.022 Urine protein assay by test strip, semi-quantitative NEGATIVE NEGATIVE Urine glucose detection by automated test strip NEGATIVE NEGATIVE Erythrocytes detection in urine sediment by light microscopy TRACE-I NEGATIVE Urine ketones detection by automated test strip NEGATIVE NEGATIVE Urine nitrite detection by test strip NEGATIVE NEGATIVE Urine total bilirubin detection by test strip NEGATIVE NEGATIVE Urine urobilinogen measurement by automated test strip (mass/volume) 0.2 mg/dL NORMAL Urine leukocyte esterase detection by dipstick TRACE NEGATIVE Automated urine sediment erythrocyte count by microscopy (number/high power field) RARE NRG Automated urine sediment leukocyte count by microscopy (number/high power field) [HPF] NRG Bacteria detection in urine sediment by light microscopy 1+ NRG Squamous epithelial cells detection in urine sediment by light microscopy 5-10 NRG Crystals detection in urine sediment by light microscopy NONE NRG Casts detection in urine sediment by light microscopy NONE NRG Mucus detection in urine sediment by light microscopy SMALL NRG Complete urinalysis with reflex to culture NO NRG Urine beta human chorionic gonadotropin (hCG) measurement - 08/23/18 22:43 Urine beta human chorionic gonadotropin (hCG) measurement NEGATIVE NEGATIVE Automated blood complete blood count (hemogram) panel - 08/23/18 23:05 Blood leukocytes automated count (number/volume) 11.8 10*3/uL 4.3-11.0 Blood erythrocytes automated count (number/volume) 5.13 10*6/uL 4.35-5.85 Venous blood hemoglobin measurement (mass/volume) 13.9 g/dL 11.5-16.0 Blood hematocrit (volume fraction) 43 % 35-52 Automated erythrocyte mean corpuscular volume 83 [foz_us] 80-99 Automated erythrocyte mean corpuscular hemoglobin (mass per erythrocyte) 27 pg 25-34 Automated erythrocyte mean corpuscular hemoglobin concentration measurement (mass/volume) 33 g/dL 32-36 Automated erythrocyte distribution width ratio 13.6 % 10.0- 14.5 Automated blood platelet count (count/volume) 279 10*3/uL 130-400 Automated blood platelet mean volume measurement 9.8 [foz_us] 7.4-10.4 Comprehensive metabolic panel - 08/23/18 23:05 Serum or plasma sodium measurement (moles/volume) 139 mmol/L 135-145 Serum or plasma potassium measurement (moles/volume) 3.8 mmol/L 3.6-5.0 Serum or plasma chloride measurement (moles/volume) 102 mmol/L 98-107 Carbon dioxide 23 mmol/L 21-32 Serum or plasma anion gap determination (moles/volume) 14 mmol/L 5-14 Serum or plasma urea nitrogen measurement (mass/volume) 11 mg/dL 7-18 Serum or plasma creatinine measurement (mass/volume) 0.86 mg/dL 0.60-1.30 Serum or plasma urea nitrogen/creatinine mass ratio 13 NRG Serum or plasma creatinine measurement with calculation of estimated glomerular filtration rate > NRG Serum or plasma glucose measurement (mass/volume) 121 mg/dL 70-105 Serum or plasma calcium measurement (mass/volume) 9.0 mg/dL 8.5-10.1 Serum or plasma total bilirubin measurement (mass/volume) 0.2 mg/dL 0.1-1.0 Serum or plasma alkaline phosphatase measurement (enzymatic activity/volume) 64 U/L 40-136 Serum or plasma aspartate aminotransferase measurement (enzymatic activity/volume) 18 U/L 5-34 Serum or plasma alanine aminotransferase measurement (enzymatic activity/volume) 24 U/L 0-55 Serum or plasma protein measurement (mass/volume) 6.9 g/dL 6.4-8.2 Serum or plasma albumin measurement (mass/volume) 3.8 g/dL 3.2-4.5 CALCIUM CORRECTED 9.2 mg/dL 8.5-10.1 Complete blood count (CBC) with automated white blood cell (WBC) differential - 08/24/18 05:09 Blood leukocytes automated count (number/volume) 8.2 10*3/uL 4.3-11.0 Blood erythrocytes automated count (number/volume) 4.91 10*6/uL 4.35-5.85 Venous blood hemoglobin measurement (mass/volume) 13.4 g/dL 11.5-16.0 Blood hematocrit (volume fraction) 40 % 35-52 Automated erythrocyte mean corpuscular volume 82 [foz_us] 80-99 Automated erythrocyte mean corpuscular hemoglobin (mass per erythrocyte) 27 pg 25-34 Automated erythrocyte mean corpuscular hemoglobin concentration measurement (mass/volume) 33 g/dL 32-36 Automated erythrocyte distribution width ratio 14.5 % 10.0- 14.5 Automated blood platelet count (count/volume) 252 10*3/uL 130-400 Automated blood platelet mean volume measurement 10.1 [foz_us] 7.4-10.4 Automated blood neutrophils/100 leukocytes 62 % 42-75 Automated blood lymphocytes/100 leukocytes 25 % 12-44 Blood monocytes/100 leukocytes 10 % 0-12 Automated blood eosinophils/100 leukocytes 2 % 0-10 Automated blood basophils/100 leukocytes 0 % 0-10 Blood neutrophils automated count (number/volume) 5.1 10*3 1.8-7.8 Blood lymphocytes automated count (number/volume) 2.1 10*3 1.0-4.0 Blood monocytes automated count (number/volume) 0.9 10*3 0.0- 1.0 Automated eosinophil count 0.2 10*3/uL 0.0-0.3 Automated blood basophil count (count/volume) 0.0 10*3/uL 0.0-0.1 Comprehensive metabolic panel - 08/24/18 05:09 Serum or plasma sodium measurement (moles/volume) 137 mmol/L 135-145 Serum or plasma potassium measurement (moles/volume) 3.6 mmol/L 3.6-5.0 Serum or plasma chloride measurement (moles/volume) 106 mmol/L 98-107 Carbon dioxide 20 mmol/L 21-32 Serum or plasma anion gap determination (moles/volume) 11 mmol/L 5-14 Serum or plasma urea nitrogen measurement (mass/volume) 10 mg/dL 7-18 Serum or plasma creatinine measurement (mass/volume) 0.74 mg/dL 0.60-1.30 Serum or plasma urea nitrogen/creatinine mass ratio 14 NRG Serum or plasma creatinine measurement with calculation of estimated glomerular filtration rate > NRG Serum or plasma glucose measurement (mass/volume) 109 mg/dL 70-105 Serum or plasma calcium measurement (mass/volume) 8.5 mg/dL 8.5-10.1 Serum or plasma total bilirubin measurement (mass/volume) 0.4 mg/dL 0.1-1.0 Serum or plasma alkaline phosphatase measurement (enzymatic activity/volume) 62 U/L 40-136 Serum or plasma aspartate aminotransferase measurement (enzymatic activity/volume) 35 U/L 5-34 Serum or plasma alanine aminotransferase measurement (enzymatic activity/volume) 38 U/L 0-55 Serum or plasma protein measurement (mass/volume) 6.3 g/dL 6.4-8.2 Serum or plasma albumin measurement (mass/volume) 3.5 g/dL 3.2-4.5 CALCIUM CORRECTED 8.9 mg/dL 8.5-10.1 Encounters ACCT No. Visit Date/Time Discharge Status Pt. Type Provider Facility Loc./Unit Complaint [id number] 11/30/2018 12:30:00 11/30/2018 23:59:59 [facility] [id number] 03/29/2018 12:00:00 Document Registration [id number] 03/15/2018 12:20:00 Document Registration [id number] 12/17/2017 15:00:00 Document Registration [id number] 05/21/2017 10:40:00 Document Registration [id number] 03/02/2017 08:00:00 Document Registration [id number] 02/26/2017 14:00:00 Document Registration [id number] 10/15/2018 07:26:00 10/15/2018 09:10:00 DIS Outpatient MACARIO SINGH DO [facility] ENDO LUQ ABD PAIN/HX DIVERTICULITIS [id number] 10/11/2018 11:00:00 10/11/2018 12:39:00 DIS Outpatient MACARIO SINGH DO [facility] PREOP COLONOSCOPY [id number] 08/24/2018 00:30:00 08/26/2018 13:30:00 DIS Inpatient RACHEL MOREIRA DO [facility] 4TH DIVERTICULITIS [id number] 08/17/2018 07:33:00 08/17/2018 09:43:00 DIS Emergency ETHAN HUANG MD [facility] ER FS LT SIDE PAIN [id number] 12/18/2017 09:19:00 12/18/2017 23:59:59 CLS Outpatient BRYSON SHEPHERD APRN [facility] RAD SCREENING FOR BREAST CANCER [id number] 11/27/2017 06:43:00 11/27/2017 09:10:00 DIS Outpatient MACARIO SINGH DO [facility] ENDO HX DIVERTICULTITIS/ CROHNS'S/GERD [id number] 11/20/2017 05:37:00 11/20/2017 09:54:00 DIS Outpatient MACARIO SINGH DO [facility] PREOP COLONOSCOPY/EGD [id number] 11/09/2017 20:00:00 11/09/2017 23:59:59 CLS Preadmit BRYSON SHEPHERD APRN [facility] SLEEP HYPERSOMNIA, UNSPECIFIED G47.10 [id number] 09/17/2013 06:00:00 09/18/2013 09:30:00 DIS Outpatient LEONARD SOSA MD [facility] SDC MENORRHAGIA;CHRONIC PELVIC PAIN;ENDOMETRIOSIS [id number] 09/15/2013 09:54:00 09/15/2013 23:59:59 CLS Outpatient LEONARD SOSA MD [facility] PREOP MENORRHAGIA;CHRONIC PELVIC PAIN;ENDOMETRIOSIS
[2019-01-01] MEDS ORDERED: ONDANSETRON 4 MG/2 ML (SDV) Z0FRAN IVP ONE (18:15)
--- NOTE | 2019-01-01 18:16 | ED GI ---
General Chief Complaint: Rect Problems Stated Complaint: BLOODY STOOL; VOMITING History of Present Illness Date Seen by Provider: Jan 01, 2019 Time Seen by Provider: 18:13 Initial Comments 33-year-old female presents with some nausea, vomiting and some blood in her stool. The patient has indescribably stool she says "like my normal" patient has a history of both Crohn's and/or diverticulitis. She reports that this morning she started with some nausea vomiting and developed some bloody stool. Is not complaining of abdominal pain. She denies any fevers or chills. She normally follows with Dr. Ron at [place]. She denies any fever, chills, cough or other systemic complaints. Allergies and Home Medications Allergies Coded Allergies: buspirone (Verified Allergy, Intermediate, SEVERE ANXIETY, 11/27/17) aripiprazole (Verified Allergy, Unknown, Heart racing, 08/24/18) bismuth subsalicylate (Unverified Allergy, Unknown, NAUSEA, 11/27/17) latex (Unverified Allergy, Unknown, RASH, 11/27/17) meperidine (Unverified Allergy, Unknown, RASH, 11/27/17) promethazine (Unverified Allergy, Unknown, DIFFICULTY BREATHING, 11/27/17) Uncoded Allergies: TAPE (Adverse Reaction, Unknown, RASH, 09/15/13) Home Medications Albuterol Sulfate 0.63 Mg/3 Ml Vial.neb, 0.63 MG IH PRN, (Reported) Albuterol Sulfate 1 Puff Puff, 2 PUFF IH Q4H PRN for COUGH, (Reported) 1 PUFF = 90 MCG Atorvastatin Calcium 20 Mg Tablet, 20 MG PO HS, (Reported) Brexpiprazole 4 Mg Tablet, 4 MG PO DAILY, (Reported) Bupropion HCl 150 Mg Tablet.er, 150 MG PO BID, (Reported) Cyclobenzaprine HCl 10 Mg Tablet, 10 MG PO PRN, (Reported) Fluticasone Propionate 9.9 Ml [place].susp, 1 SPRAY NS DAILY, (Reported) 1 SPRAY EACH NARE DAILY Metformin HCl 500 Mg Tab.er.24h, 500 MG PO HS, (Reported) Oxcarbazepine 300 Mg Tablet, 900 MG PO MORNING AND EVENING, (Reported) Oxcarbazepine 300 Mg Tablet, 600 MG PO AFTERNOON, (Reported) Pantoprazole Sodium 40 Mg Tablet.dr, 40 MG PO DAILY, (Reported) Prednisone 20 Mg Tab, 20 MG PO BID PRN for CHROHNS, (Reported) Take 3 tabs(60mg)daily, decrease by 1/2 tab(10mg)daily. Tramadol HCl 50 Mg Tablet, 50 MG PO Q6H PRN for PAIN-MILD TO MODERATE, ( Reported) Patient Home Medication List Home Medication List Reviewed: Yes Review of Systems Review of Systems Constitutional: No chills, No dizziness, No fever, No malaise Cardiovascular: Denies Chest Pain, Denies Edema Gastrointestinal: Denies Abdomen Distended, Denies Abdominal Pain, Denies Constipated, Denies Difficulty Swallowing; Nausea, Rectal Bleeding, Vomiting Genitourinary: Denies Burning Musculoskeletal: no symptoms reported Skin: no symptoms reported Psychiatric/Neurological: No Symptoms Reported Past Sydedoz-Wsuaku-Axiavo Hx Past Med/Social Hx: Reviewed Nursing Past Med/Soc Hx Patient Social History Type Used: Cigarettes Former Smoker, Quit: Aug 12, 2018 2nd Hand Smoke Exposure: No Recent Hopitalizations: No Immunizations Up To Date Tetanus Booster (TDap): Unknown Seasonal Allergies Seasonal Allergies: No Past Medical History Surgeries: Yes (EGD's, Colonoscopys, D&C, colon resection) Abdominal, Cystectomy, Hysterectomy Respiratory: Yes Asthma Currently Using CPAP: No Currently Using BIPAP: No Cardiac: Yes High Cholesterol Neurological: No Reproductive Disorders: No Female 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 Sexually Transmitted Disease: No HIV/AIDS: No Genitourinary: No Gastrointestinal: Yes Gastroesophageal Reflux, Crohns Disease, Diverticulosis Musculoskeletal: Yes Arthritis, Chronic Back Pain Endocrine: No HEENT: No Loss of Vision: Bilateral Hearing Impairment: Denies Cancer: No Psychosocial: Yes Anxiety, Bipolar, Depression Integumentary: No Blood Disorders: No Adverse Reaction/Blood Tranf: No (HAS HAD BLOOD WITH NO REACTION) Physical Exam Vital Signs Vital Signs - First Documented 01/01/19 18:02 Temp 98.7 Pulse 92 Resp 18 B/P (MAP) 123/68 (86) Pulse Ox 98 O2 Delivery Room Air Capillary Refill : Height/Weight/BMI Height: 5'3.00" Weight: 302lbs. 0.0oz. 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 II-XII nml as tested, no motor/sensory deficits, alert, normal mood/affect Skin: normal color, warm/dry Progress/Results/Core Measures Results/Orders Lab Results Laboratory Tests Test 01/01/19 18:15 Range/Units White Blood Count 12.1 H 4.3-11.0 10^3/uL Red Blood Count 6.00 H 4.35-5.85 10^6/uL Hemoglobin 16.5 H 11.5-16.0 G/DL Hematocrit 50 35-52 % Mean Corpuscular Volume 83 80-99 FL Mean Corpuscular Hemoglobin 28 25-34 PG Mean Corpuscular Hemoglobin Concent 33 32-36 G/DL Red Cell Distribution Width 14.2 10.0-14.5 % Platelet Count 265 130-400 10^3/uL Mean Platelet Volume 10.2 7.4-10.4 FL Neutrophils (%) (Auto) 74 42-75 % Lymphocytes (%) (Auto) 18 12-44 % Monocytes (%) (Auto) 5 0-12 % Eosinophils (%) (Auto) 2 0-10 % Basophils (%) (Auto) 1 0-10 % Neutrophils # (Auto) 9.0 H 1.8-7.8 X 10^3 Lymphocytes # (Auto) 2.2 1.0-4.0 X 10^3 Monocytes # (Auto) 0.6 0.0-1.0 X 10^3 Eosinophils # (Auto) 0.2 0.0-0.3 10^3/uL Basophils # (Auto) 0.1 0.0-0.1 10^3/uL Erythrocyte Sedimentation Rate 12 0-20 MM/HR Sodium Level 139 135-145 MMOL/L Potassium Level 3.8 3.6-5.0 MMOL/L Chloride Level 100 98-107 MMOL/L Carbon Dioxide Level 21 21-32 MMOL/L Anion Gap 18 H 5-14 MMOL/L Blood Urea Nitrogen 8 7-18 MG/DL Creatinine 0.72 0.60-1.30 MG/DL Estimat Glomerular Filtration Rate > 60 BUN/Creatinine Ratio 11 Glucose Level 136 H 70-105 MG/DL Calcium Level 9.0 8.5-10.1 MG/DL Corrected Calcium 8.8 8.5-10.1 MG/DL Total Bilirubin 0.2 0.1-1.0 MG/DL Aspartate Amino Transf (AST/SGOT) 18 5-34 U/L Alanine Aminotransferase (ALT/SGPT) 28 0-55 U/L Alkaline Phosphatase 74 40-136 U/L Total Protein 7.7 6.4-8.2 GM/DL Albumin 4.3 3.2-4.5 GM/DL My Orders Orders - ROSSY KENNY DO Comprehensive Metabolic Panel (01/01/19 18:10) Ed Iv/Invasive Line Start (01/01/19 18:10) Acute Abd Series (01/01/19 18:10) Cbc With Automated Diff (01/01/19 18:10) Hs C Reactive Protein (01/01/19 18:10) Erythrocyte Sedimentation Rate (01/01/19 18:10) Ondansetron Injection (Zofran Injectio (01/01/19 18:15) Ct Abdomen/Pelvis W (01/01/19 19:11) Medications Given in ED Current Medications Medications Dose Ordered Sig/Christoph Route Start Time Stop Time Status Last Admin Dose Admin Iohexol 100 ml ONCE ONCE IV 01/01/19 19:15 01/01/19 19:27 DC 01/01/19 19:32 100 ML Ondansetron HCl 4 mg ONCE ONCE IVP 01/01/19 18:15 01/01/19 18:16 DC 01/01/19 18:25 4 MG Sodium Chloride 10 ml NEEDED PRN IV 01/01/19 19:15 01/01/19 19:32 10 ML Sodium Chloride 100 ml ONCE ONCE IV 01/01/19 19:15 01/01/19 19:27 DC 01/01/19 19:32 80 ML Vital Signs/I&O 01/01/19 18:02 Temp 98.7 Pulse 92 Resp 18 B/P (MAP) 123/68 (86) Pulse Ox 98 O2 Delivery Room Air Progress Progress Note : Progress Note Patient had a very slightly elevated white count. Otherwise negative abdominal x-ray and CT and a negative ESR which liens away from Crohn's. Patient deferred a rectal exam to confirm rectal bleeding and to evaluate for hemorrhoids. At this time patient is ready to be discharged home. I will discharge her home with Zofran for the nausea and vomiting. At this time there is no further indications for hospitalization or further evaluation. I recommended she call Dr. Ron in the morning to see if she can arrange a repeat check. Patient will otherwise be discharged home in stable condition Departure Impression Primary Impression: Nausea & vomiting Qualified Codes: R11.2 - Nausea with vomiting, unspecified Additional Impressions: Diverticulosis of large intestine without diverticulitis RB (rectal bleeding) Disposition: HOME, SELF-CARE Condition: Stable Departure-Patient Inst. Referrals: [facility] [place] Primary Care Physician LOPEZ SHULTZ APRN (Family) Primary Care Physician Patient Instructions: Nausea and Vomiting, Adult (DC), Bloody Stools, Adult (DC), Diverticulosis Scripts Ondansetron (Ondansetron Odt) 4 Mg Tab.rapdis 4 MG PO Q6H PRN for NAUSEA/VOMITING, #20 TAB Prov: ROSSY KENNY DO 01/01/19 ROSSY KENNY DO Jan 01, 2019 18:16
[2019-01-01 18:32] LABS: HEMATOCRIT 50 % (35-52); HEMOGLOBIN 16.5 G/DL (11.5-16.0); MEAN CORPUSCULAR HEMOGLOBIN 28 PG (25-34); MEAN CORPUSCULAR VOLUME 83 FL (80-99); WHITE BLOOD COUNT 12.1 10^3/uL (4.3-11.0)
[2019-01-01 18:33] LABS: BASOPHILS # (AUTO) 0.1 10^3/uL (0.0-0.1); BASOPHILS % (AUTO) 1 % (0-10); EOSINOPHILS # (AUTO) 0.2 10^3/uL (0.0-0.3); EOSINOPHILS % (AUTO) 2 % (0-10); LYMPHOCYTES # (AUTO) 2.2 X 10^3 (1.0-4.0); LYMPHOCYTES % (AUTO) 18 % (12-44); MEAN CORPUSCULAR HGB CONC 33 G/DL (32-36); MEAN PLATELET VOLUME 10.2 FL (7.4-10.4); MONOCYTES # (AUTO) 0.6 X 10^3 (0.0-1.0); MONOCYTES % (AUTO) 5 % (0-12); NEUTROPHILS % (AUTO) 74 % (42-75); PLATELET COUNT 265 10^3/uL (130-400); RED CELL DISTRIBUTION WIDTH 14.2 % (10.0-14.5)
[2019-01-01 18:46] LABS: ALKALINE PHOSPHATASE 74 U/L (40-136); BILIRUBIN,TOTAL 0.2 MG/DL (0.1-1.0); BUN/CREATININE RATIO 11; CARBON DIOXIDE 21 MMOL/L (21-32); CHLORIDE 100 MMOL/L (98-107); CREATININE SERUM 0.72 MG/DL (0.60-1.30); GFR ESTIMATED > 60; GLUCOSE 136 MG/DL (70-105); POTASSIUM 3.8 MMOL/L (3.6-5.0); SODIUM 139 MMOL/L (135-145)
[2019-01-01 18:47] LABS: ALANINE AMINOTRANSFERASE 28 U/L (0-55); ALBUMIN 4.3 GM/DL (3.2-4.5); TOTAL PROTEIN 7.7 GM/DL (6.4-8.2)
--- NOTE | 2019-01-01 19:00 | NUR ---
Report to Leslie FERGUSON.
--- NOTE | 2019-01-01 19:07 | Diagnostic Imaging Report ---
EXAMINATION: Single frontal view of the chest with AP supine and upright views of the abdomen. INDICATION: Abdominal pain. COMPARISON: None available. FINDINGS: The lungs are clear and the pulmonary vasculature is normal. No pneumothorax or large pleural effusion. The cardiomediastinal silhouette is normal. No acute osseous abnormality is appreciated. There is a nonobstructive bowel gas pattern. Scattered gas and stool is noted in the colon. No unusual stool burden. No evidence of pneumoperitoneum. No organomegaly or abnormal abdominal calcifications are appreciated. Surgical clips are demonstrated in the right upper quadrant. IMPRESSION: No radiographic evidence of acute chest disease. Nonobstructive bowel gas pattern. No radiographic findings to suggest an acute abdominal process. Dictated by: Dictated on workstation # [id number]
[2019-01-01] MEDS ORDERED: IOHEXOL 350 MG/ML 100 ML (OMNIPAQUE 350) VIAL IV ONE (19:15)
[2019-01-01] MEDS ORDERED: NS 100 ML (IVPB) BAG IV ONE (19:15)
[2019-01-01] MEDS ORDERED: CATHETER FLUSH 10 ML SYR IV PRN (19:15)
[2019-01-01] MEDS ORDERED: HOLD METFORMIN - RECEIVED CONTRAST 20 ML VIAL IV SCH (19:15)
--- NOTE | 2019-01-01 19:52 | Diagnostic Imaging Report ---
PROCEDURE: CT abdomen and pelvis with contrast. TECHNIQUE: Multiple contiguous axial images were obtained through the abdomen and pelvis after administration of intravenous contrast. Auto Exposure Controls were utilized during the CT exam to meet ALARA standards for radiation dose reduction. INDICATION: Abdominal pain. History of Crohn's disease. COMPARISON: 08/17/2018. FINDINGS: Included portions of the lung bases are clear. CT abdomen: There is colonic diverticulosis, but no CT evidence of acute diverticulitis. Normal appendix is identified. Small bowel loops are nondistended. Small bowel surgical suture material is noted within the midline upper pelvis just below the level of the umbilicus. The kidneys, adrenal glands, spleen, and pancreas have a normal CT appearance. Liver appears hypodense on this postcontrast exam suggestive of underlying hepatic steatosis. No focal hepatic masses are identified. Portal vein is patent. There is no loculated fluid collection, free fluid, or free air within the abdomen. No abnormal mesenteric or retroperitoneal adenopathy is seen. Osseous structures show no acute abnormalities. CT pelvis: Urinary bladder is unopacified. No calculi are seen within the urinary bladder. There is no loculated fluid collection, free fluid, or free air. No abnormal adenopathy is identified. Osseous structures show no acute abnormalities. IMPRESSION: 1. No acute abnormalities are seen within the abdomen or pelvis. 2. Colonic diverticulosis, but no CT evidence of acute diverticulitis. 3. Probable hepatic steatosis. Dictated by: Dictated on workstation # [id number]
[2019-01-01] MEDS ORDERED: ONDA4TAB11 PO (20:06)
[2019-01-01 20:15] VITALS: BP 113/47
== END 2019-01-01 20:14 | disposition home or self-care (01) ==
LOC: EDUNIT# 18:02 → ER FS 18:03
DX: K57.30 Diverticulosis of large intestine without perforation or abscess without bleeding (principal); K62.5 Hemorrhage of anus and rectum; J45.909 Unspecified asthma, uncomplicated; E78.00 Pure hypercholesterolemia, unspecified; K21.9 Gastro-esophageal reflux disease without esophagitis; F31.9 Bipolar disorder, unspecified; F41.9 Anxiety disorder, unspecified; Z90.710 Acquired absence of both cervix and uterus; Z87.19 Personal history of other diseases of the digestive system; Z88.8 Allergy status to other drugs, medicaments and biological substances; Z91.040 Latex allergy status; Z88.5 Allergy status to narcotic agent; Z79.51 Long term (current) use of inhaled steroids; Z79.84 Long term (current) use of oral hypoglycemic drugs; Z87.891 Personal history of nicotine dependence
CPT/HCPCS: 36415; 74022; 74177; 80053; 85025; 85652; 86141; 96374

== ENCOUNTER 2019-02-12 04:50 | Emergency (ER) | payer MEDICAID ==
[~2019-02-12] VITALS: Ht 162.6 cm; Wt 118.8 kg
[~2019-02-12 04:50] MED LIST changes: +ONDA4TAB11 PO
[2019-02-12] MEDS ORDERED: KETOROLAC 60 MG/2 ML VIAL IM STA (05:02)
[2019-02-12] MEDS ORDERED: methylPREDNISolone 40 MG/ML (DEPO MEDROL) VIAL IM STA (05:02)
[2019-02-12] MEDS ORDERED: DEXAMETHASONE 10 MG/ML (DECADRON) 1 ML VIAL IM STA (05:02)
--- NOTE | 2019-02-12 05:11 | ED Back Pain ---
General Chief Complaint: Back Problems Stated Complaint: BACK PAIN Source of Information: Patient (KENZIE FLORES MD) History of Present Illness Date Seen by Provider: Feb 12, 2019 Time Seen by Provider: 04:52 Initial Comments 33-year-old female presenting with complaints of some spasm. 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 She thought maybe she just pulled something. She does have a history of problems with her back and chronic back pain but it had not been bothering her recently. She denies any radiation of pain down into her legs. She's had no loss of bowel or bladder control. She did try taking the Flexeril which helped her sleep. She took around 15 minutes after midnight. She had woke up a little after 4 AM and was still having severe pain so she came to the emergency department. She had tried a heating pad on her back as well but it was not helping. She had pain to the right side of her spine. There is no pain over the vertebrae themselves. It starts in her lumbar area and goes up into her thoracic area. (KENZIE FLORES MD) Allergies and Home Medications Allergies Coded Allergies: buspirone (Verified Allergy, Intermediate, SEVERE ANXIETY, 11/27/17) aripiprazole (Verified Allergy, Unknown, Heart racing, 08/24/18) bismuth subsalicylate (Unverified Allergy, Unknown, NAUSEA, 11/27/17) latex (Unverified Allergy, Unknown, RASH, 11/27/17) meperidine (Unverified Allergy, Unknown, RASH, 11/27/17) promethazine (Unverified Allergy, Unknown, DIFFICULTY BREATHING, 11/27/17) Uncoded Allergies: TAPE (Adverse Reaction, Unknown, RASH, 09/15/13) Home Medications Albuterol Sulfate 0.63 Mg/3 Ml Vial.neb, 0.63 MG IH PRN, (Reported) Albuterol Sulfate 1 Puff Puff, 2 PUFF IH Q4H PRN for COUGH, (Reported) 1 PUFF = 90 MCG Atorvastatin Calcium 20 Mg Tablet, 20 MG PO HS, (Reported) Brexpiprazole 4 Mg Tablet, 4 MG PO DAILY, (Reported) Bupropion HCl 150 Mg Tablet.er, 150 MG PO BID, (Reported) Cyclobenzaprine HCl 10 Mg Tablet, 10 MG PO PRN, (Reported) Fluticasone Propionate 9.9 Ml [place].susp, 1 SPRAY NS DAILY, (Reported) 1 SPRAY EACH NARE DAILY Metformin HCl 500 Mg Tab.er.24h, 500 MG PO HS, (Reported) Ondansetron 4 Mg Tab.rapdis, 4 MG PO Q6H PRN for NAUSEA/VOMITING Prescribed by: ROSSY KENNY on 01/01/192005 Oxcarbazepine 300 Mg Tablet, 900 MG PO MORNING AND EVENING, (Reported) Oxcarbazepine 300 Mg Tablet, 600 MG PO AFTERNOON, (Reported) Pantoprazole Sodium 40 Mg Tablet.dr, 40 MG PO DAILY, (Reported) Prednisone 20 Mg Tab, 20 MG PO BID PRN for CHROHNS, (Reported) Take 3 tabs(60mg)daily, decrease by 1/2 tab(10mg)daily. Tramadol HCl 50 Mg Tablet, 50 MG PO Q6H PRN for PAIN-MILD TO MODERATE, (Reported) Patient Home Medication List Home Medication List Reviewed: Yes (KENZIE FLORES MD) Review of Systems Constitutional: no symptoms reported EENTM: no symptoms reported Respiratory: no symptoms reported Cardiovascular: no symptoms reported Gastrointestinal: no symptoms reported Genitourinary: No dysuria; other (denies any loss of bowel or bladder control) Musculoskeletal: see HPI Skin: no symptoms reported Psychiatric/Neurological: Denies Numbness, Denies Paresthesia, Denies Tingling, Denies Weakness (KENZIE FLORES MD) Past Qotjvuw-Ymlneg-Fdkcpj Hx Past Med/Social Hx: Reviewed Nursing Past Med/Soc Hx (KENZIE FLORES MD) Patient Social History Type Used: Cigarettes Former Smoker, Quit: Aug 12, 2018 2nd Hand Smoke Exposure: No Recent Hopitalizations: No (KENZIE FLOERS MD) Immunizations Up To Date Tetanus Booster (TDap): Unknown (KENZIE FLORES MD) Seasonal Allergies Seasonal Allergies: No (KENZIE FLORES MD) Past Medical History Surgeries: Yes (EGD's, Colonoscopys, D&C, colon resection) Abdominal, Cystectomy, Hysterectomy Respiratory: Yes Asthma, Sleep Apnea Currently Using CPAP: No Currently Using BIPAP: No Cardiac: Yes High Cholesterol Neurological: No Reproductive Disorders: No 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 Sexually Transmitted Disease: No HIV/AIDS: No Genitourinary: Yes Kidney Stones Gastrointestinal: Yes Gastroesophageal Reflux, Crohns Disease, Diverticulosis, Esophagitis Musculoskeletal: Yes Arthritis, Chronic Back Pain Endocrine: Yes (DM Type II, Morbid Obesity) Diabetes, Non-Insulin dep HEENT: No Loss of Vision: Bilateral Hearing Impairment: Denies Cancer: No Psychosocial: Yes Anxiety, Bipolar, Depression Integumentary: No Blood Disorders: No Adverse Reaction/Blood Tranf: No (HAS HAD BLOOD WITH NO REACTION) (KENZIE FLORES MD) Physical Exam Vital Signs Vital Signs - First Documented 02/12/19 05:00 Temp 97.7 Pulse 87 Resp 18 B/P (MAP) 130/79 (96) Pulse Ox 97 O2 Delivery Room Air (OLY HART DO) Vital Signs Capillary Refill : (KENZIE FLORES MD) Height, Weight, BMI Height: 5'3.00" Weight: 272lbs. 0.0oz. 123.061617ll; 53.5 BMI Method:Stated General Appearance: WD/WN, Moderate Distress, Obese HEENT: PERRL/EOMI Neck: Full Range of Motion, Non Tender, Supple Cardiovascular: Regular Rate, Rhythm, Normal Peripheral Pulses Respiratory: Chest Non Tender, Lungs Clear, Normal Breath Sounds, No Accessory Muscle Use, No Respiratory Distress Back: No Vertebral Tenderness, Muscle Spasm (right side of her spine along the paraspinal muscles from the lumbar area to her thoracic mid back) Extremity: Normal Capillary Refill, Normal Range of Motion, Non Tender, No Calf Tenderness Neurologic/Psychiatric: Alert, Oriented x3 Skin: Normal Color, Warm/Dry (KENZIE FLORES MD) Progress/Results/Core Measures Results/Orders Vital Signs/I&O 02/12/19 05:00 Temp 97.7 Pulse 87 Resp 18 B/P (MAP) 130/79 (96) Pulse Ox 97 O2 Delivery Room Air (OLY HART DO) Progress Progress Note #1: Progress Note She drove herself to the emergency department and states that she does not believe she has a ride currently. We will try nonsedating medication for inflammation and pain since she is not taking anything other than the Flexeril. We'll also try an ice pack. We will obtain CT scan of her thoracic and lumbar spine to evaluate for acute compression fracture or disc injury. Provided that she has no acute changes on her scan will plan on discharging her with anti- inflammatories, muscle relaxer, ice and heat regimen. Follow-up through the clinic and may need to see orthopedic or online marketing specialist as well. Progress Note #2: Time: 06:00 Progress Note Pt reports mild improvement in her symptoms after medication. Awaiting CT report to determine final disposition. Care passed to Dr. Hart at shift change to follow up on CT report and determine final disposition. (KENZIE FLORES MD) Progress Note : Progress Note Ryan - Patient has unremarkable CT T and L spine. Repeat neuro exam normal. No red flag s/s neccessitating emergent MRI. Will dc on valium, ibuprofen, lidocaine. Patient aware and agreeable with plan. (OLY HART DO) Diagnostic Imaging Diagonstic Imaging: CT Plain Films/CT/US/NM/MRI: other (Thoracic and Lumbar spine) (KENZIE FLORES MD) Transfer of Care Time: 06:00 Care transferred to: Dr. Hart (KENZIE FLORES MD) Departure Impression Primary Impression: Thoracic back sprain Qualified Codes: S23.9XXA - Sprain of unspecified parts of thorax, initial encounter Additional Impressions: Lumbar sprain Qualified Codes: S33.5XXA - Sprain of ligaments of lumbar spine, initial en counter Pain in right paraspinal region Spasm of paraspinal muscle Disposition: 01 HOME, SELF-CARE Condition: Stable Departure-Patient Inst. Referrals: [facility] [place] Primary Care Physician LOPEZ SHULTZ APRN (Family) Primary Care Physician Patient Instructions: Lumbar Muscle Strain (DC) Scripts Ibuprofen (Ibuprofen) 800 Mg Tablet 800 MG PO Q8H PRN for PAIN, #30 TAB 0 Refills Prov: OLY HART DO 02/12/19 Diazepam (Valium) 5 Mg Tablet 5 MG PO TID PRN for SPASMS, #6 TAB Prov: OLY HART DO 02/12/19 Work/School Note: Work Release Form Date Seen in the Emergency Department: Feb 12, 2019 Return to Work: Feb 14, 2019 KENZIE FLORES MD Feb 12, 2019 05:11 OLY HART DO Feb 12, 2019 06:22
[2019-02-12] MEDS ORDERED: DIAZ5TAB PO (06:21)
[2019-02-12] MEDS ORDERED: IBUP-1780 PO (06:21)
[2019-02-12 06:30] VITALS: BP 112/48
--- NOTE | 2019-02-12 08:21 | Diagnostic Imaging Report ---
PROCEDURE: CT thoracic and lumbar spine without contrast. TECHNIQUE: Multiple contiguous axial images were obtained through the thoracic and lumbar spine without the use of intravenous contrast. Sagittal and coronal reformations were then performed. INDICATION: Back pain. FINDINGS: The reconstructed parasagittal images do show slight anterior wedging of T11. This finding was also present on the previous CT abdomen/pelvis exam of 01/01/2019 and consequently is most likely long-standing in nature. The other lumbar and thoracic vertebral body heights are within normal limits. There is no fracture or acute bony abnormality evident. There is no sign of high-grade central stenosis. There is no paraspinal mass visualized. The lungs, were visualized are generally clear. There is a vague area of increased density in the anterior mediastinum. This may be related to residual thymic tissue. IMPRESSION: 1. There is no evidence for an acute bony abnormality. The mild anterior wedging of T11 is felt to be long-standing in nature. 2. If clinical concern regarding an underlying abnormality persists, then MRI would be recommended for further evaluation. Dictated by: Dictated on workstation # [id number]
== END 2019-02-12 06:32 | disposition home or self-care (01) ==
LOC: EDUNIT# 04:50 → ER FS 04:51
DX: S23.9XXA Sprain of unspecified parts of thorax, initial encounter (principal); S33.5XXA Sprain of ligaments of lumbar spine, initial encounter; M62.830 Muscle spasm of back; J45.909 Unspecified asthma, uncomplicated; G47.30 Sleep apnea, unspecified; E78.00 Pure hypercholesterolemia, unspecified; K21.0 Gastro-esophageal reflux disease with esophagitis; E66.01 Morbid (severe) obesity due to excess calories; F31.9 Bipolar disorder, unspecified; F41.9 Anxiety disorder, unspecified; E11.9 Type 2 diabetes mellitus without complications; Z87.442 Personal history of urinary calculi; Z88.1 Allergy status to other antibiotic agents; Z88.8 Allergy status to other drugs, medicaments and biological substances; Z88.5 Allergy status to narcotic agent; Z79.84 Long term (current) use of oral hypoglycemic drugs; Z91.040 Latex allergy status; Z87.891 Personal history of nicotine dependence; Z90.710 Acquired absence of both cervix and uterus; Z68.42 Body mass index [BMI] 45.0-49.9, adult; X50.1XXA Overexertion from prolonged static or awkward postures, initial encounter
CPT/HCPCS: 72128; 72131

== ENCOUNTER 2019-03-09 04:50 | Emergency (ER) | payer MEDICAID ==
[~2019-03-09] VITALS: Ht 162.5 cm; Wt 127.0 kg
[~2019-03-09 04:50] MED LIST changes: +DIAZ5TAB PO
--- NOTE | 2019-03-09 05:05 | ED Integumentary General ---
General Chief Complaint: Allergic Reaction Stated Complaint: NAUSEA; HIVES; ITCHY THROAT Nursing Triage Note: Patient states that she started getting some hives on her arms last night around 2245. Patient states that it is progressively getting worse. Patient states her tongue itches and that she is nauseated. She denies being exposed to anything new. Source: patient History of Present Illness Date Seen by Provider: Mar 09, 2019 Time Seen by Provider: 05:04 Initial Comments 34-year-old female presents with hives versus diffuse insect bites with localized reaction. Patient reports that around 1030-11last night she came in from outdoors and had a lot of small little diffuse what she thousand state bites. This morning she comes in because they're very itchy. She feels that she's overnight they mainly has some diarrhea. She denies any shortness of breath, wheezing, her tongue is mildly 'itchy' but is not swollen. She has no difficulty swallowing or throat swelling. She has not tried anything for the rash Allergies and Home Medications Allergies Coded Allergies: buspirone (Verified Allergy, Intermediate, SEVERE ANXIETY, 11/27/17) aripiprazole (Verified Allergy, Unknown, Heart racing, 08/24/18) bismuth subsalicylate (Unverified Allergy, Unknown, NAUSEA, 11/27/17) latex (Unverified Allergy, Unknown, RASH, 11/27/17) meperidine (Unverified Allergy, Unknown, RASH, 11/27/17) promethazine (Unverified Allergy, Unknown, DIFFICULTY BREATHING, 11/27/17) Uncoded Allergies: TAPE (Adverse Reaction, Unknown, RASH, 09/15/13) Home Medications Albuterol Sulfate 0.63 Mg/3 Ml Vial.neb, 0.63 MG IH PRN, (Reported) Albuterol Sulfate 1 Puff Puff, 2 PUFF IH Q4H PRN for COUGH, (Reported) 1 PUFF = 90 MCG Atorvastatin Calcium 20 Mg Tablet, 20 MG PO HS, (Reported) Brexpiprazole 4 Mg Tablet, 4 MG PO DAILY, (Reported) Bupropion HCl 150 Mg Tablet.er, 150 MG PO BID, (Reported) Cyclobenzaprine HCl 10 Mg Tablet, 10 MG PO PRN, (Reported) Diazepam 5 Mg Tablet, 5 MG PO TID PRN for SPASMS Prescribed by: OLY HART on 02/12/19620 Fluticasone Propionate 9.9 Ml [place].susp, 1 SPRAY NS DAILY, (Reported) 1 SPRAY EACH NARE DAILY Ibuprofen 800 Mg Tablet, 800 MG PO Q8H PRN for PAIN Prescribed by: OLY HART on 02/12/19620 Metformin HCl 500 Mg Tab.er.24h, 500 MG PO HS, (Reported) Ondansetron 4 Mg Tab.rapdis, 4 MG PO Q6H PRN for NAUSEA/VOMITING Prescribed by: ROSSY KENNY on 01/01/192005 Oxcarbazepine 300 Mg Tablet, 900 MG PO MORNING AND EVENING, (Reported) Oxcarbazepine 300 Mg Tablet, 600 MG PO AFTERNOON, (Reported) Pantoprazole Sodium 40 Mg Tablet.dr, 40 MG PO DAILY, (Reported) Prednisone 20 Mg Tab, 20 MG PO BID PRN for CHROHNS, (Reported) Take 3 tabs(60mg)daily, decrease by 1/2 tab(10mg)daily. Tramadol HCl 50 Mg Tablet, 50 MG PO Q6H PRN for PAIN-MILD TO MODERATE, (Reported) Patient Home Medication List Home Medication List Reviewed: Yes Review of Systems Review of Systems Constitutional: No chills EENTM: No throat pain, No throat swelling Respiratory: no symptoms reported Cardiovascular: no symptoms reported Gastrointestinal: No abdominal pain; diarrhea, nausea Skin: see HPI Past Royzzsy-Rtforz-Fwobkm Hx Past Med/Social Hx: Reviewed Nursing Past Med/Soc Hx Patient Social History Alcohol Use: Denies Use Recreational Drug Use: No (SMOKED POT OCCASIONALLY, NONE FOR 1 YR) Smoking Status: Current Everyday Smoker Type Used: Cigarettes Former Smoker, Quit: Aug 12, 2018 2nd Hand Smoke Exposure: No Recent Foreign Travel: No Contact w/Someone Who Travel: No Recent Infectious Disease Expo: No Recent Hopitalizations: No Physical Abuse: No Sexual Abuse: No Mistreated: No Fear: No Immunizations Up To Date Tetanus Booster (TDap): Unknown Seasonal Allergies Seasonal Allergies: No Past Medical History Surgeries: Yes (EGD's, Colonoscopys, D&C, colon resection) Abdominal, Cystectomy, Hysterectomy Respiratory: Yes Asthma, Sleep Apnea Currently Using CPAP: No Currently Using BIPAP: No Cardiac: Yes High Cholesterol Neurological: No Reproductive Disorders: No Female Reproductive Disorders: Denies 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 Sexually Transmitted Disease: No HIV/AIDS: No Genitourinary: Yes Kidney Stones Gastrointestinal: Yes Gastroesophageal Reflux, Crohns Disease, Diverticulosis, Esophagitis Musculoskeletal: Yes Arthritis, Chronic Back Pain Endocrine: Yes (DM Type II, Morbid Obesity) Diabetes, Non-Insulin dep HEENT: No Loss of Vision: Bilateral Hearing Impairment: Denies Cancer: No Psychosocial: Yes Anxiety, Bipolar, Depression Integumentary: No Blood Disorders: No Adverse Reaction/Blood Tranf: No (HAS HAD BLOOD WITH NO REACTION) Physical Exam Vital Signs Vital Signs - First Documented 03/09/19 04:58 Temp 36.1 Pulse 88 Resp 18 B/P (MAP) 131/71 (91) Pulse Ox 98 O2 Delivery Room Air Capillary Refill : Less Than 3 Seconds General Appearance: no apparent distress HEENT: normal ENT inspection Cardiovascular: regular rate, rhythm Respiratory: chest non-tender, lungs clear, normal breath sounds Gastrointestinal: non tender, soft Extremities: normal range of motion, non-tender Skin: rash (mild sporadic erythematous papular rash/early urticaria versus maybe diffuse insect bites with small localized reaction) Progress/Results/Core Measures Results/Orders My Orders Orders - ROSSY KENNY DO Diphenhydramine Injection (Benadryl Inje (03/09/19 05:15) Medications Given in ED Current Medications Medications Dose Ordered Sig/Christoph Route Start Time Stop Time Status Last Admin Dose Admin Diphenhydramine HCl 50 mg ONCE ONCE IM 03/09/19 05:15 03/09/19 05:16 03/09/19 05:10 50 MG Vital Signs/I&O 03/09/19 04:58 Temp 36.1 Pulse 88 Resp 18 B/P (MAP) 131/71 (91) Pulse Ox 98 O2 Delivery Room Air Blood Pressure Mean: 91 Departure Impression Primary Impression: Rash and nonspecific skin eruption Disposition: HOME, SELF-CARE Condition: Stable Departure-Patient Inst. Referrals: [facility] (PCP) Primary Care Physician LOPEZ SHULTZ APRN (Family) Primary Care Physician Patient Instructions: Skin Rash (DC) Add. Discharge Instructions: Benadryl 25-50 mg every 4-6 hours as needed Hydrocortisone topical cream as instructed on package as needed All discharge instructions reviewed with patient and/or family. Voiced understanding. Work/School Note: Work Release Form Date Seen in the Emergency Department: Mar 09, 2019 Return to Work: Mar 10, 2019 ROSSY KENNY DO Mar 09, 2019 05:05
[2019-03-09 05:13] VITALS: BP 131/71
[2019-03-09] MEDS ORDERED: diphenhydrAMINE 50 MG/ML INJ (BENADRYL) IM ONE (05:15)
== END 2019-03-09 05:13 | disposition home or self-care (01) ==
LOC: EDUNIT# 04:50 → ER FS 04:51
DX: R21 Rash and other nonspecific skin eruption (principal); J45.909 Unspecified asthma, uncomplicated; E78.00 Pure hypercholesterolemia, unspecified; E11.9 Type 2 diabetes mellitus without complications; F41.9 Anxiety disorder, unspecified; F31.9 Bipolar disorder, unspecified; K21.9 Gastro-esophageal reflux disease without esophagitis; E66.01 Morbid (severe) obesity due to excess calories; F17.210 Nicotine dependence, cigarettes, uncomplicated; Z87.19 Personal history of other diseases of the digestive system; Z87.442 Personal history of urinary calculi; Z90.710 Acquired absence of both cervix and uterus; Z88.5 Allergy status to narcotic agent; Z88.8 Allergy status to other drugs, medicaments and biological substances; Z91.040 Latex allergy status; Z79.51 Long term (current) use of inhaled steroids; Z79.84 Long term (current) use of oral hypoglycemic drugs; Z79.52 Long term (current) use of systemic steroids; Z68.42 Body mass index [BMI] 45.0-49.9, adult
CPT/HCPCS: 96372; 99284

== ENCOUNTER 2019-06-21 11:51 | Emergency (ER) | payer MEDICAID ==
[~2019-06-21] VITALS: Ht 162 cm; Wt 127.7 kg
[~2019-06-21 11:51] MED LIST changes: -TRAM50TA2 PO; +TRM50T PO
--- NOTE | 2019-06-21 12:28 | ED Back Pain ---
General Chief Complaint: Back Problems Stated Complaint: BACK PAIN Source of Information: Patient Exam Limitations: No Limitations History of Present Illness Date Seen by Provider: Jun 21, 2019 Time Seen by Provider: 12:23 Initial Comments This 34-year-old female presents with right sided low back pain that began yesterday. The patient's tried Flexeril and Ultram without improvement. Patient has a long-standing history of low back pain secondary to disc disease. She denies associated paresthesias or weakness in her lower extremity. She denies some urinary or bowel retention. She denies saddle anesthesia. Patient's had no associated fever or chill. She has had no falls or difficulty walking. Allergies and Home Medications Allergies Coded Allergies: buspirone (Verified Allergy, Intermediate, SEVERE ANXIETY, 11/27/17) aripiprazole (Verified Allergy, Unknown, Heart racing, 08/24/18) bismuth subsalicylate (Unverified Allergy, Unknown, NAUSEA, 11/27/17) latex (Unverified Allergy, Unknown, RASH, 11/27/17) meperidine (Unverified Allergy, Unknown, RASH, 11/27/17) promethazine (Unverified Allergy, Unknown, DIFFICULTY BREATHING, 11/27/17) Uncoded Allergies: TAPE (Adverse Reaction, Unknown, RASH, 09/15/13) Home Medications Albuterol Sulfate 0.63 Mg/3 Ml Vial.neb, 0.63 MG IH PRN, (Reported) Albuterol Sulfate 1 Puff Puff, 2 PUFF IH Q4H PRN for COUGH, (Reported) 1 PUFF = 90 MCG Atorvastatin Calcium 20 Mg Tablet, 20 MG PO HS, (Reported) Brexpiprazole 4 Mg Tablet, 4 MG PO DAILY, (Reported) Bupropion HCl 150 Mg Tablet.er, 150 MG PO BID, (Reported) Cyclobenzaprine HCl 10 Mg Tablet, 10 MG PO PRN, (Reported) Diazepam 5 Mg Tablet, 5 MG PO TID PRN for SPASMS Prescribed by: OLY HART on 02/12/19620 Fluticasone Propionate 9.9 Ml [place].susp, 1 SPRAY NS DAILY, (Reported) 1 SPRAY EACH NARE DAILY Ibuprofen 800 Mg Tablet, 800 MG PO Q8H PRN for PAIN Prescribed by: OLY HART on 9/4/19 0621 Metformin HCl 500 Mg Tab.er.24h, 500 MG PO HS, (Reported) Ondansetron 4 Mg Tab.rapdis, 4 MG PO Q6H PRN for NAUSEA/VOMITING Prescribed by: ROSSY KENNY on 01/01/192005 Oxcarbazepine 300 Mg Tablet, 900 MG PO MORNING AND EVENING, (Reported) Oxcarbazepine 300 Mg Tablet, 600 MG PO AFTERNOON, (Reported) Pantoprazole Sodium 40 Mg Tablet.dr, 40 MG PO DAILY, (Reported) Prednisone 20 Mg Tab, 20 MG PO BID PRN for CHROHNS, (Reported) Take 3 tabs(60mg)daily, decrease by 1/2 tab(10mg)daily. Tramadol HCl 50 Mg Tablet, 50 MG PO Q6H PRN for PAIN-MILD TO MODERATE, (Reported) Patient Home Medication List Home Medication List Reviewed: Yes Review of Systems Constitutional: no symptoms reported EENTM: no symptoms reported Respiratory: no symptoms reported Cardiovascular: no symptoms reported Gastrointestinal: no symptoms reported Genitourinary: no symptoms reported, other Musculoskeletal: see HPI, back pain Skin: no symptoms reported Psychiatric/Neurological: No Symptoms Reported Past Ncoxyfx-Ecunum-Uugkim Hx Past Med/Social Hx: Reviewed Nursing Past Med/Soc Hx Patient Social History Alcohol Use: Denies Use Recreational Drug Use: No Smoking Status: Current Everyday Smoker Type Used: Cigarettes Former Smoker, Quit: Aug 12, 2018 2nd Hand Smoke Exposure: No Recent Hopitalizations: No Physical Abuse: No Sexual Abuse: No Mistreated: No Fear: No Immunizations Up To Date Tetanus Booster (TDap): Unknown Seasonal Allergies Seasonal Allergies: No Past Medical History Surgeries: Yes (EGD's, Colonoscopys, D&C, colon resection) Abdominal, Cystectomy, Hysterectomy Respiratory: Yes Asthma, Sleep Apnea Currently Using CPAP: No Currently Using BIPAP: No Cardiac: Yes High Cholesterol Neurological: No Reproductive Disorders: No Female Reproductive Disorders: Denies 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 Sexually Transmitted Disease: No HIV/AIDS: No Genitourinary: Yes Kidney Stones Gastrointestinal: Yes Gastroesophageal Reflux, Crohns Disease, Diverticulosis, Esophagitis Musculoskeletal: Yes Arthritis, Chronic Back Pain Endocrine: Yes (DM Type II, Morbid Obesity) Diabetes, Non-Insulin dep HEENT: No Loss of Vision: Bilateral Hearing Impairment: Denies Cancer: No Psychosocial: Yes Anxiety, Bipolar, Depression Integumentary: No Blood Disorders: No Adverse Reaction/Blood Tranf: No (HAS HAD BLOOD WITH NO REACTION) Physical Exam Vital Signs Capillary Refill : Height, Weight, BMI Height: 5'4.00" Weight: 262lbs. 0oz. 118.647887by; 48.00 BMI Method:Stated General Appearance: WD/WN, Mild Distress HEENT: Normal ENT Inspection Neck: Normal Inspection Cardiovascular: Regular Rate, Rhythm Respiratory: Lungs Clear Gastrointestinal: Normal Bowel Sounds, Soft Back: Normal Inspection, Other (the area of the patient's pain is over the lower thoracic and upper lumbar region in the paraspinous muscles on the right.) Extremity: Normal Inspection Neurologic/Psychiatric: Alert, No Motor/Sensory Deficits Skin: Normal Color, Warm/Dry Progress/Results/Core Measures Results/Orders My Orders Orders - MINE PARKER MD Fentanyl Injection (Sublimaze Injection (06/21/19 12:30) Methylprednisolone Sod Succ (Solu-Medrol (06/21/19 12:30) Progress Progress Note : Time: 12:26 Progress Note Patient was given 50 g of fentanyl and 125 mg of Solu-Medrol IM. She was asked follow-up with her doctor on Sunday. She was asked to rest at home and return if any problems or questions. Departure Impression Primary Impression: Back pain Qualified Codes: M54.5 - Low back pain Disposition: HOME, SELF-CARE Condition: Improved Departure-Patient Inst. Decision time for Depature: 12:27 Referrals: [facility] [place] (PCP) Primary Care Physician LOPEZ SHULTZ APRN (Family) Primary Care Physician Patient Instructions: Low Back Pain in Adults Add. Discharge Instructions: Rest at home this . Follow-up with Isabela Shultz on Sunday. Return if any problems or questions. All discharge instructions reviewed with patient and/or family. Voiced understanding. MINE PARKER MD Jun 21, 2019 12:28
[2019-06-21] MEDS ORDERED: fentaNYL INJECTION 100 MCG/2 ML AMP IM ONE (12:30)
[2019-06-21] MEDS ORDERED: methylPREDNISolone 125 MG (Solu-MEDROL) VIAL IM ONE (12:30)
[2019-06-21 12:48] VITALS: BP 128/49
== END 2019-06-21 12:48 | disposition home or self-care (01) ==
LOC: EDUNIT# 11:51 → ER FS 11:52
DX: M54.5 Low back pain (principal); E78.00 Pure hypercholesterolemia, unspecified; E11.9 Type 2 diabetes mellitus without complications; J45.909 Unspecified asthma, uncomplicated; F41.9 Anxiety disorder, unspecified; F31.9 Bipolar disorder, unspecified; K21.9 Gastro-esophageal reflux disease without esophagitis; E66.01 Morbid (severe) obesity due to excess calories; F17.210 Nicotine dependence, cigarettes, uncomplicated; Z87.442 Personal history of urinary calculi; Z91.040 Latex allergy status; Z88.8 Allergy status to other drugs, medicaments and biological substances; Z88.5 Allergy status to narcotic agent; Z79.51 Long term (current) use of inhaled steroids; Z79.84 Long term (current) use of oral hypoglycemic drugs; Z90.710 Acquired absence of both cervix and uterus
CPT/HCPCS: 99284

== ENCOUNTER 2019-07-11 20:20 | Inpatient (IN) | payer MEDICAID ==
[~2019-07-11] VITALS: Ht 162.5 cm; Wt 127.6 kg
[2019-07-11 21:41] LABS: BASOPHILS % (AUTO) 0 % (0-10); EOSINOPHILS % (AUTO) 2 % (0-10); HEMATOCRIT 47 % (35-52); HEMOGLOBIN 15.6 G/DL (11.5-16.0); LYMPHOCYTES % (AUTO) 31 % (12-44); MEAN CORPUSCULAR HEMOGLOBIN 27 PG (25-34); MEAN CORPUSCULAR HGB CONC 33 G/DL (32-36); MEAN CORPUSCULAR VOLUME 83 FL (80-99); MONOCYTES % (AUTO) 7 % (0-12); NEUTROPHILS % (AUTO) 60 % (42-75); PLATELET COUNT 323 10^3/uL (130-400); RED CELL DISTRIBUTION WIDTH 14.6 % (10.0-14.5); WHITE BLOOD COUNT 11.7 10^3/uL (4.3-11.0)
[2019-07-11 21:42] LABS: BASOPHILS # (AUTO) 0.1 10^3/uL (0.0-0.1); EOSINOPHILS # (AUTO) 0.3 10^3/uL (0.0-0.3); LYMPHOCYTES # (AUTO) 3.6 X 10^3 (1.0-4.0); MONOCYTES # (AUTO) 0.8 X 10^3 (0.0-1.0)
[2019-07-11 21:43] LABS: BILIRUBIN,TOTAL 0.2 MG/DL (0.1-1.0); BUN/CREATININE RATIO 14; CALCIUM 9.4 MG/DL (8.5-10.1); CARBON DIOXIDE 25 MMOL/L (21-32); CHLORIDE 103 MMOL/L (98-107); CREATININE SERUM 0.81 MG/DL (0.60-1.30); GFR ESTIMATED > 60; GLUCOSE 98 MG/DL (70-105); POTASSIUM 3.6 MMOL/L (3.6-5.0); SODIUM 141 MMOL/L (135-145)
[2019-07-11 21:44] LABS: ALANINE AMINOTRANSFERASE 22 U/L (0-55); ALBUMIN 3.9 GM/DL (3.2-4.5); ALKALINE PHOSPHATASE 68 U/L (40-136); LIPASE 36 U/L (8-78); TOTAL PROTEIN 7.2 GM/DL (6.4-8.2)
[2019-07-11] MEDS ORDERED: HOLD METFORMIN - RECEIVED CONTRAST 20 ML VIAL IV SCH (21:45)
[2019-07-11] MEDS ORDERED: CATHETER FLUSH 10 ML SYR IV PRN (21:45)
[2019-07-11] MEDS ORDERED: NS 100 ML (IVPB) BAG IV ONE (21:45)
[2019-07-11] MEDS ORDERED: IOHEXOL 350 MG/ML 100 ML (OMNIPAQUE 350) VIAL IV ONE (21:45)
--- NOTE | 2019-07-11 22:05 | ED Abdominal Pain ---
General Chief Complaint: Abdominal/GI Problems Stated Complaint: ABD PAIN,VOMITING,DIARRHEA Nursing Triage Note: PT COMPLAINING OF ABD PAIN, DIARRHEA AND NAUSEA SINCE YESTERDAY Sepsis Screen: No Definite Risk Source of Information: Patient History of Present Illness Date Seen by Provider: Jul 11, 2019 Time Seen by Provider: 22:11 Initial Comments 34-year-old female presenting with complaints of 2 days of diffuse abdominal pain, diarrhea, nausea and vomiting. She states that her symptoms are similar to when she has had a Crohn's or diverticulitis flare in the past. She states that she has not had a way to check her temperature at home but she has had subjective fever and chills. She also has had blood mixed in with her diarrhea at home. She was able to eat and drink a little bit earlier today but was not keeping down. He has has not urinated much today since she has not drank very much. She denies any vaginal bleeding or discharge and has had hysterectomy in the past. She has seen Dr. Ron in the past but has not had a colonoscopy with him because she has not been able to get down to see him when she wasn't having symptoms due to vehicle problems. She presents tonight due to worsening problems and concern that her pain was not improving. Allergies and Home Medications Allergies Coded Allergies: buspirone (Verified Allergy, Intermediate, SEVERE ANXIETY, 11/27/17) aripiprazole (Verified Allergy, Unknown, Heart racing, 08/24/18) bismuth subsalicylate (Unverified Allergy, Unknown, NAUSEA, 11/27/17) latex (Unverified Allergy, Unknown, RASH, 11/27/17) meperidine (Unverified Allergy, Unknown, RASH, 11/27/17) promethazine (Unverified Allergy, Unknown, DIFFICULTY BREATHING, 11/27/17) Uncoded Allergies: TAPE (Adverse Reaction, Unknown, RASH, 09/15/13) Home Medications Albuterol Sulfate 0.63 Mg/3 Ml Vial.neb, 0.63 MG IH PRN, (Reported) Albuterol Sulfate 1 Puff Puff, 2 PUFF IH Q4H PRN for COUGH, (Reported) 1 PUFF = 90 MCG Atorvastatin Calcium 20 Mg Tablet, 20 MG PO HS, (Reported) Brexpiprazole 4 Mg Tablet, 4 MG PO DAILY, (Reported) Bupropion HCl 150 Mg Tablet.er, 150 MG PO BID, (Reported) Cyclobenzaprine HCl 10 Mg Tablet, 10 MG PO PRN, (Reported) Diazepam 5 Mg Tablet, 5 MG PO TID PRN for SPASMS Prescribed by: OLY HART on 02/12/19620 Fluticasone Propionate 9.9 Ml Jermyn.susp, 1 SPRAY NS DAILY, (Reported) 1 SPRAY EACH NARE DAILY Ibuprofen 800 Mg Tablet, 800 MG PO Q8H PRN for PAIN Prescribed by: OLY HART on 02/12/19620 Metformin HCl 500 Mg Tab.er.24h, 500 MG PO HS, (Reported) Ondansetron 4 Mg Tab.rapdis, 4 MG PO Q6H PRN for NAUSEA/VOMITING Prescribed by: ROSSY KENNY on 01/01/192005 Oxcarbazepine 300 Mg Tablet, 900 MG PO MORNING AND EVENING, (Reported) Oxcarbazepine 300 Mg Tablet, 600 MG PO AFTERNOON, (Reported) Pantoprazole Sodium 40 Mg Tablet.dr, 40 MG PO DAILY, (Reported) Prednisone 20 Mg Tab, 20 MG PO BID PRN for CHROHNS, (Reported) Take 3 tabs(60mg)daily, decrease by 1/2 tab(10mg)daily. Tramadol HCl 50 Mg Tablet, 50 MG PO Q6H PRN for PAIN-MILD TO MODERATE, (Reported) Patient Home Medication List Home Medication List Reviewed: Yes Review of Systems Review of Systems Constitutional: chills, fever (subjective), malaise EENTM: No Symptoms Reported Respiratory: No Symptoms Reported Cardiovascular: No Symptoms Reported Gastrointestinal: See HPI Genitourinary: See HPI Musculoskeletal: no symptoms reported Skin: no symptoms reported Psychiatric/Neurological: Anxiety, Weakness (generalized) Endocrine: No Symptoms Reported Past Evqlbhy-Dmmzit-Kuogzh Hx Past Med/Social Hx: Reviewed Nursing Past Med/Soc Hx Patient Social History Alcohol Use: Denies Use Recreational Drug Use: No (SMOKED POT OCCASIONALLY, NONE FOR 1 YR) Smoking Status: Current Everyday Smoker Type Used: Cigarettes Former Smoker, Quit: Aug 12, 2018 2nd Hand Smoke Exposure: No Recent Foreign Travel: No Contact w/Someone Who Travel: No Recent Infectious Disease Expo: No Recent Hopitalizations: No Physical Abuse: No Sexual Abuse: No Mistreated: No Fear: No Immunizations Up To Date Tetanus Booster (TDap): Unknown Seasonal Allergies Seasonal Allergies: No Past Medical History Surgeries: Yes (EGD's, Colonoscopys, D&C, colon resection) Abdominal, Cystectomy, Hysterectomy Respiratory: Yes Asthma, Sleep Apnea Currently Using CPAP: No Currently Using BIPAP: No Cardiac: Yes High Cholesterol Neurological: No Reproductive Disorders: No Female Reproductive Disorders: Denies 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 Sexually Transmitted Disease: No HIV/AIDS: No Genitourinary: Yes Kidney Stones Gastrointestinal: Yes Gastroesophageal Reflux, Crohns Disease, Diverticulosis, Esophagitis Musculoskeletal: Yes Arthritis, Chronic Back Pain Endocrine: Yes (DM Type II, Morbid Obesity) Diabetes, Non-Insulin dep HEENT: No Loss of Vision: Bilateral Hearing Impairment: Denies Cancer: No Psychosocial: Yes Anxiety, Bipolar, Depression Integumentary: No Blood Disorders: No Adverse Reaction/Blood Tranf: No (HAS HAD BLOOD WITH NO REACTION) Physical Exam Vital Signs Vital Signs - First Documented 07/11/19 20:23 Temp 36.4 Pulse 98 Resp 18 B/P (MAP) 131/68 (89) Pulse Ox 98 O2 Delivery Room Air Capillary Refill : Less Than 3 Seconds Height/Weight/BMI Height: 5'4.00" Weight: 262lbs. 0oz. [id number]; 44.00 BMI Method:Stated General Appearance: WD/WN, moderate distress, obese HEENT: PERRL/EOMI; No pharyngeal erythema, No tonsillar exudate; other (slightly dry mucus membranes) Neck: non-tender, supple, normal inspection Respiratory: chest non-tender, lungs clear, normal breath sounds, no respiratory distress, no accessory muscle use Cardiovascular: normal peripheral pulses, regular rate, rhythm, no edema Gastrointestinal: soft, no pulsatile mass, abnormal bowel sounds (hypoactive), guarding; No rebound; tenderness (diffuse) Extremities: normal range of motion, non-tender, normal capillary refill Neurologic/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: 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, alert, oriented x 3, other (anxious) Skin: normal color, warm/dry Progress/Results/Core Measures Results/Orders Lab Results Laboratory Tests Test 07/11/19 20:40 Range/Units White Blood Count 11.7 H 4.3-11.0 10^3/uL Red Blood Count 5.69 4.35-5.85 10^6/uL Hemoglobin 15.6 11.5-16.0 G/DL Hematocrit 47 35-52 % Mean Corpuscular Volume 83 80-99 FL Mean Corpuscular Hemoglobin 27 25-34 PG Mean Corpuscular Hemoglobin Concent 33 32-36 G/DL Red Cell Distribution Width 14.6 H 10.0-14.5 % Platelet Count 323 130-400 10^3/uL Mean Platelet Volume 10.0 7.4-10.4 FL Neutrophils (%) (Auto) 60 42-75 % Lymphocytes (%) (Auto) 31 12-44 % Monocytes (%) (Auto) 7 0-12 % Eosinophils (%) (Auto) 2 0-10 % Basophils (%) (Auto) 0 0-10 % Neutrophils # (Auto) 7.0 1.8-7.8 X 10^3 Lymphocytes # (Auto) 3.6 1.0-4.0 X 10^3 Monocytes # (Auto) 0.8 0.0-1.0 X 10^3 Eosinophils # (Auto) 0.3 0.0-0.3 10^3/uL Basophils # (Auto) 0.1 0.0-0.1 10^3/uL Sodium Level 141 135-145 MMOL/L Potassium Level 3.6 3.6-5.0 MMOL/L Chloride Level 103 98-107 MMOL/L Carbon Dioxide Level 25 21-32 MMOL/L Anion Gap 13 5-14 MMOL/L Blood Urea Nitrogen 11 7-18 MG/DL Creatinine 0.81 0.60-1.30 MG/DL Estimat Glomerular Filtration Rate > 60 BUN/Creatinine Ratio 14 Glucose Level 98 70-105 MG/DL Calcium Level 9.4 8.5-10.1 MG/DL Corrected Calcium 9.5 8.5-10.1 MG/DL Total Bilirubin 0.2 0.1-1.0 MG/DL Aspartate Amino Transf (AST/SGOT) 17 5-34 U/L Alanine Aminotransferase (ALT/SGPT) 22 0-55 U/L Alkaline Phosphatase 68 40-136 U/L Total Protein 7.2 6.4-8.2 GM/DL Albumin 3.9 3.2-4.5 GM/DL Lipase 36 8-78 U/L My Orders Orders - KENZIE FLORES MD Comprehensive Metabolic Panel (07/11/19 21:21) Lipase (07/11/19 21:21) Ua Culture If Indicated (07/11/19 21:21) Ed Iv/Invasive Line Start (07/11/19 21:21) Cbc With Automated Diff (07/11/19 21:21) Ct Abdomen/Pelvis W (07/11/19 21:21) Iohexol Injection (Omnipaque 350 Mg/Ml 1 (07/11/19 21:45) Received Contrast (Hold Metformin- Contr (07/11/19 21:45) Sodium Chloride Flush (Catheter Flush Sy (07/11/19 21:45) Ns (Ivpb) (Sodium Chloride 0.9% Ivpb Bag (07/11/19 21:45) Ns Iv 1000 Ml (Sodium Chloride 0.9%) (07/11/19 22:38) Ondansetron Injection (Zofran Injectio (07/11/19 22:38) Morphine Injection (Morphine Injection (07/11/19 22:38) Piperacillin Sodium/Tazobactam (Zosyn Vi (07/11/19 22:41) Medications Given in ED Current Medications Medications Dose Ordered Sig/Christoph Route Start Time Stop Time Status Last Admin Dose Admin Iohexol 100 ml ONCE ONCE IV 07/11/19 21:45 07/11/19 21:46 DC 07/11/19 21:39 100 ML Sodium Chloride 10 ml NEEDED PRN IV 07/11/19 21:45 07/11/19 21:39 10 ML Sodium Chloride 100 ml ONCE ONCE IV 07/11/19 21:45 07/11/19 21:46 DC 07/11/19 21:39 100 ML Vital Signs/I&O 07/11/19 20:23 Temp 36.4 Pulse 98 Resp 18 B/P (MAP) 131/68 (89) Pulse Ox 98 O2 Delivery Room Air Blood Pressure Mean: 89 Progress Progress Note #1: Progress Note obtain labs and order CT scan to evaluate her abdomen and pelvis to look for possible diverticulitis vs perforation vs mass vs abscess. try IVF for hydration, Zofran for nausea, Morphine for pain Progress Note #2: Time: 22:20 Progress Note Labs show WBC at upper limits of normal 11.7. Chemistry panel is not showing any acute significant abnormality. She has not been able to provide a urine specimen yet. The CT scan did show signs of diverticulosis and it the sigmoid colon area she had some mild diverticulitis findings without abscess or perforation. Will add in Zosyn 4.5 g IV to start treating for diverticulitis. Progress Note #3: Time: 22:42 Progress Note Discussed with Dr. Ron about the patient since he has seen her previously about her symptoms. He advised that if her symptoms were improved with treatment in the ED and she was tolerating oral been certainly she could be discharged home on 3 days of clear liquid diet and treat with either Augmentin or Cipro and Flagyl. Progress Note #4: Time: 23:42 Progress Note Patient was still having severe pain and felt like her symptoms were not improving to the point that she could tolerate oral medicines. Discussed with Dr. Pal who was on-call for [facility] since the patient follows with RONALD Shultz. Will admit for continued antibiotics, fluids, pain and nausea control. Diagnostic Imaging Diagonstic Imaging: CT Plain Films/CT/US/NM/MRI: abdomen, pelvis Comments NAME: MARIA C ROJO [facility] REC#: [id number] PT STATUS: REG ER : 1985 PHYSICIAN: KENZIE FLORES MD ADMIT DATE: 07/11/19/ER FS Draft Date of Exam:07/11/19 CT ABDOMEN/PELVIS W PROCEDURE: CT abdomen and pelvis with contrast. TECHNIQUE: Multiple contiguous axial images were obtained through the abdomen and pelvis after administration of intravenous contrast. Auto Exposure Controls were utilized during the CT exam to meet ALARA standards for radiation dose reduction. INDICATION: Abdominal pain, diarrhea COMPARISON: 01/01/2019 FINDINGS: The visualized lung bases are clear. Cholecystectomy. The liver demonstrates diffusely decreased density without focal hepatic mass. The spleen is unremarkable. Adrenal glands are unremarkable. The pancreas is unremarkable. The bilateral kidneys and ureters are unremarkable. No aneurysmal dilatation of the abdominal aorta. The appendix is unremarkable. Postsurgical changes involving the small bowel within the anterior abdomen. The urinary bladder is unremarkable. The uterus is not visualized, likely surgically absent. No abnormal adnexal mass lesion. Mild colonic diverticulosis. Very minimal adjacent fat stranding is identified adjacent to a few diverticulum at the junction of the descending and sigmoid colon. No bowel obstruction or pneumatosis. No significant adenopathy, free air or free fluid. No acute osseous abnormality. IMPRESSION: Diverticulosis with questionable findings of acute diverticulitis involving the junction of the descending and sigmoid colon without evidence of abscess formation or perforation. Cholecystectomy and hysterectomy. The appendix is unremarkable. Fatty infiltration of the liver. Additional findings as above. Dictated on workstation # [id number] Dict: 07/11/19 2157 Trans: 07/11/19 2210 SHAHANA [id number] Interpreted by: LEONIDAS SCHMIDT MD Electronically signed by: Departure Communication (Admissions) Time/Spoke to Admitting Phy: 23:42 D/w Dr. Pal because the patient was still having pain and nausea despite medicine in the ED. She was not tolerating po to be able to go home on oral regimen for her diverticulitis. Impression Primary Impression: Sigmoid diverticulitis Additional Impression: Diffuse abdominal pain Disposition: ADMITTED INPATIENT Condition: Stable Admissions Decision to Admit Reason: Admit from ER (General) Decision to Admit/Date: Jul 11, 2019 Time/Decision to Admit Time: 23:42 Departure-Patient Inst. Referrals: [facility][1[facility] (PCP) Primary Care Physician LOPEZ SHULTZ APRN (Family) Primary Care Physician KENZIE FLORES MD Jul 11, 2019 22:05
--- NOTE | 2019-07-11 22:12 | Diagnostic Imaging Report ---
PROCEDURE: CT abdomen and pelvis with contrast. TECHNIQUE: Multiple contiguous axial images were obtained through the abdomen and pelvis after administration of intravenous contrast. Auto Exposure Controls were utilized during the CT exam to meet ALARA standards for radiation dose reduction. INDICATION: Abdominal pain, diarrhea COMPARISON: 01/01/2019 FINDINGS: The visualized lung bases are clear. Cholecystectomy. The liver demonstrates diffusely decreased density without focal hepatic mass. The spleen is unremarkable. Adrenal glands are unremarkable. The pancreas is unremarkable. The bilateral kidneys and ureters are unremarkable. No aneurysmal dilatation of the abdominal aorta. The appendix is unremarkable. Postsurgical changes involving the small bowel within the anterior abdomen. The urinary bladder is unremarkable. The uterus is not visualized, likely surgically absent. No abnormal adnexal mass lesion. Mild colonic diverticulosis. Very minimal adjacent fat stranding is identified adjacent to a few diverticulum at the junction of the descending and sigmoid colon. No bowel obstruction or pneumatosis. No significant adenopathy, free air or free fluid. No acute osseous abnormality. IMPRESSION: Diverticulosis with questionable findings of acute diverticulitis involving the junction of the descending and sigmoid colon without evidence of abscess formation or perforation. Cholecystectomy and hysterectomy. The appendix is unremarkable. Fatty infiltration of the liver. Additional findings as above. Dictated by: Dictated on workstation # [id number]
[2019-07-11] MEDS ORDERED: ONDANSETRON 4 MG/2 ML (SDV) Z0FRAN IVP STA (22:38)
[2019-07-11] MEDS ORDERED: NS IV 1000 ML 1,000 ML IV STA (22:38)
[2019-07-11] MEDS ORDERED: morphine INJ 10 MG/ML 1ML (SYR OR VIAL) IVP STA (22:38)
[2019-07-11] MEDS ORDERED: PIPERACILLIN SODIUM/TAZOBACTAM 4.5 GM in NS (IVPB) 100 ML IV STA (22:41)
[2019-07-12] MEDS ORDERED: ONDANSETRON 4 MG/2 ML (SDV) Z0FRAN IVP STA (00:22)
[2019-07-12] MEDS ORDERED: morphine INJ 10 MG/ML 1ML (SYR OR VIAL) IVP STA (00:22)
[2019-07-12 01:39] VITALS: BP 97/53
--- NOTE | 2019-07-12 01:42 | NUR ---
MARIA C ROJO admitted to room 413-1, with an admitting diagnosis of SIGMOID DIVERTICULITIS, on 07/11/19 from ED via EMS, accompanied by EMS AND DAUGHTER.MARIA C ROJO introduced to surroundings, call light, bed controls, phone, TV, temperature control, lights, meal times, smoking policy, visitor policy, side rail policy, bathrooms and showers. Patient Rights given to patient in the handbook.MARIA C ROJO verbalizes understanding that [facility] is not responsible for the loss or damage to any personal effects or valuables that are kept in the patients posession during their hospitalization.
[2019-07-12] MEDS ORDERED: ALBU2.5V4 IH (02:07)
[2019-07-12] MEDS: NS IV 1000 ML 1,000 ML IV SCH ×3 (02:47→17:36)
[2019-07-12] MEDS: morphine INJ 4 MG/ML 1 ML (VIAL/SYRINGE) IV PRN ×6 (02:48→21:50)
[2019-07-12 04:00] VITALS: BP 100/52
[2019-07-12] MEDS ORDERED: PIPERACILLIN/TAZO 4.5 GM VIAL (ZOSYN) IV ONE (04:46)
[2019-07-12] MEDS ORDERED: NS (IVPB) 100 ML ONE (04:46)
[2019-07-12] MEDS: PIPERACILLIN/TAZO 4.5 GM/NS 100 ML IV SCH ×6 (05:10→20:37)
[2019-07-12 05:27] LABS: BASOPHILS % (AUTO) 0 % (0-10); EOSINOPHILS # (AUTO) 0.3 10^3/uL (0.0-0.3); EOSINOPHILS % (AUTO) 3 % (0-10); HEMATOCRIT 42 % (35-52); HEMOGLOBIN 13.6 G/DL (11.5-16.0); LYMPHOCYTES # (AUTO) 2.3 X 10^3 (1.0-4.0); LYMPHOCYTES % (AUTO) 27 % (12-44); MEAN CORPUSCULAR HEMOGLOBIN 27 PG (25-34); MEAN CORPUSCULAR HGB CONC 33 G/DL (32-36); MEAN CORPUSCULAR VOLUME 82 FL (80-99); MEAN PLATELET VOLUME 9.7 FL (7.4-10.4); MONOCYTES # (AUTO) 0.9 X 10^3 (0.0-1.0); MONOCYTES % (AUTO) 10 % (0-12); NEUTROPHILS # (AUTO) 5.2 X 10^3 (1.8-7.8); NEUTROPHILS % (AUTO) 60 % (42-75); PLATELET COUNT 264 10^3/uL (130-400); RED CELL DISTRIBUTION WIDTH 14.9 % (10.0-14.5); WHITE BLOOD COUNT 8.7 10^3/uL (4.3-11.0)
[2019-07-12 05:52] LABS: ALANINE AMINOTRANSFERASE 48 U/L (0-55); ALBUMIN 3.4 GM/DL (3.2-4.5); ALKALINE PHOSPHATASE 56 U/L (40-136); BILIRUBIN,TOTAL 0.3 MG/DL (0.1-1.0); BUN/CREATININE RATIO 13; CALCIUM 8.1 MG/DL (8.5-10.1); CARBON DIOXIDE 17 MMOL/L (21-32); CHLORIDE 110 MMOL/L (98-107); CREATININE SERUM 0.69 MG/DL (0.60-1.30); GFR ESTIMATED > 60; GLUCOSE 88 MG/DL (70-105); POTASSIUM 3.6 MMOL/L (3.6-5.0); SODIUM 138 MMOL/L (135-145)
[2019-07-12 07:40] VITALS: BP 99/65
--- NOTE | 2019-07-12 07:56 | History & Physical-Hospitalist ---
History of Present Illness HPI/Chief Complaint 34-year-old female presenting with complaints of 2 days of diffuse abdominal pain, diarrhea, nausea and vomiting. She states that her symptoms are similar to when she has had a Crohn's or diverticulitis flare in the past. She states that she has not had a way to check her temperature at home but she has had subjective fever and chills. She also has had blood mixed in with her diarrhea at home. She was able to eat and drink a little bit earlier today but was not keeping down. He has has not urinated much today since she has not drank very much. She denies any vaginal bleeding or discharge and has had hysterectomy in the past. She has seen Dr. Ron in the past but has not had a colonoscopy with him because she has not been able to get down to see him when she wasn't having symptoms due to vehicle problems. She presents tonight due to worsening problems and concern that her pain was not improving. Upon my arrival patient was feeling better after morphine shot with no stool. She has been told that she has Crohn's disease which she takes no regular medication for it. She does have some intermittent diarrhea with bloody stools but it is been more than 8 months since she last had to utilize prednisone. She underwent colonoscopy per Dr. Ron in October of last year which revealed mild diverticular disease noted in the sigmoid colon with no inflammatory change there is no comment on the terminal ileum. Patient reports that she has had colon surgery specific for diverticular disease in the past. Her pain reportedly began on the right side where it remains more prominent than the left side of the abdomen. She's had no chills or fever overnight. Date Seen 07/12/19 Time Seen by a Provider: 07:45 Attending Physician Mine Jacobs MD [facility] Referring Physician Date of Admission Jul 11, 2019 at 23:42 Home Medications & Allergies Home Medications Reviewed patient Home Medication Reconciliation performed by pharmacy medication reconciliations compressor technician and/or nursing. Patients Allergies have been reviewed. Allergies Allergies Coded Allergies buspirone (Verified Allergy, Intermediate, SEVERE ANXIETY, 11/27/17) aripiprazole (Verified Allergy, Unknown, Heart racing, 08/24/18) bismuth subsalicylate (Unverified Allergy, Unknown, NAUSEA, 11/27/17) latex (Unverified Allergy, Unknown, RASH, 11/27/17) meperidine (Unverified Allergy, Unknown, RASH, 11/27/17) promethazine (Unverified Allergy, Unknown, DIFFICULTY BREATHING, 11/27/17) Uncoded Allergies TAPE ( Adverse Reaction, Unknown, RASH, 09/15/13) Past Lmluija-Cmwwyf-Ehqrvb Hx Past Med/Social Hx: Reviewed Nursing Past Med/Soc Hx, Reviewed and Corrections made Patient Social History Alcohol Use: Denies Use Recreational Drug Use: No (SMOKED POT OCCASIONALLY, NONE FOR 1 YR) Smoking Status: Current Everyday Smoker Former Smoker, Quit: Aug 12, 2018 Type Used: Cigarettes 2nd Hand Smoke Exposure: No Recent Foreign Travel: No Contact w/other who traveled: No Recent Hopitalizations: No Recent Infectious Disease Expo: No Immunizations Up To Date Tetanus Booster (TDap): Unknown Seasonal Allergies Seasonal Allergies: No Past Medical History Surgeries: Abdominal, Cystectomy, Hysterectomy Currently Using CPAP: No Currently Using BIPAP: No Cardiac: High Cholesterol Reproductive: No Sexually Transmitted Disease: No HIV/AIDS: No Female Reproductive Disorders: Denies Hysterectomy Genitourinary: Kidney Stones Gastrointestinal: Gastroesophageal Reflux, Crohns Disease, Diverticulosis, Esophagitis Musculoskeletal: Arthritis, Chronic Back Pain Endocrine: Diabetes, Non-Insulin dep Loss of Vision: Bilateral Hearing Impairment: Denies Psychosocial: Anxiety, Bipolar, Depression History of Blood Disorders: No Adverse Reaction to Blood Theodore: No (HAS HAD BLOOD WITH NO REACTION) Review of Systems Constitutional: see HPI Physical Exam Physical Exam Vital Signs Vital Signs - First Documented 07/11/19 20:23 Temp 36.4 Pulse 98 Resp 18 B/P (MAP) 131/68 (89) Pulse Ox 98 O2 Delivery Room Air Capillary Refill : Less Than 3 Seconds Height, Weight, BMI Height: 5'4.00" Weight: 262lbs. 0oz. 118.968603fr; 306.64 BMI Method:Stated General Appearance: Mild Distress, Obese Neck: Full Range of Motion, Normal Inspection, Non Tender Respiratory: Chest Non Tender, Lungs Clear, Normal Breath Sounds, No Accessory Muscle Use, No Respiratory Distress Cardiovascular: Regular Rate, Rhythm, No Edema, No Gallop, No JVD, No Murmur, Normal Peripheral Pulses Gastrointestinal: Normal Bowel Sounds, Soft, Other (Obese with right lower and mid quadrant abdominal pain worse than left lower quadrant pain to palpation guarding presents on the right less so on the left.) Extremity: Normal Capillary Refill, Normal Inspection, Normal Range of Motion, Non Tender, No Calf Tenderness, No Pedal Edema Neurologic/Psychiatric: Alert, Oriented x3 Results Results/Procedures Labs Laboratory Tests 07/11/19 20:40 07/12/19 05:07 Patient resulted labs reviewed. Assessment/Plan Admission Diagnosis A/P 1. Infectious colitis favored over questionable history of Crohn's disease with Crohn's flare we will continue broad-spectrum antibiotic coverage and pain medication as needed for pain control. 2. History of diverticulitis with past what I presume is likely sigmoid resection. Admission Status: Inpatient Order (span 2 midnights) Reason for Inpatient Admission: See admission diagnosis Clinical Quality Measures DVT/VTE Risk/Contraindication: Risk Factor Score Per Nursin RFS Level Per Nursing on Admit: 2=Moderate MINE JACOBS MD Jul 12, 2019 07:56
[2019-07-12] MEDS: ONDANSETRON 4 MG/2 ML (SDV) Z0FRAN IV PRN ×3 (09:28→20:42)
[2019-07-12 11:05] VITALS: BP 96/64
[2019-07-12 16:14] VITALS: BP 114/74
[2019-07-12 19:25] VITALS: BP 92/63
[2019-07-13] VITALS: BP 103/58
[2019-07-13] MEDS: NS IV 1000 ML 1,000 ML IV SCH (02:58)
[2019-07-13 03:54] VITALS: BP 108/57
[2019-07-13] MEDS: morphine INJ 4 MG/ML 1 ML (VIAL/SYRINGE) IV PRN (03:56)
[2019-07-13] MEDS: ONDANSETRON 4 MG/2 ML (SDV) Z0FRAN IV PRN (03:56)
[2019-07-13] MEDS: PIPERACILLIN/TAZO 4.5 GM/NS 100 ML IV SCH ×2 (05:36)
[2019-07-13 08:00] VITALS: BP 92/56
[2019-07-13] MEDS ORDERED: CEPH-507 PO (11:57)
[2019-07-13 12:00] VITALS: BP 92/50
--- NOTE | 2019-07-13 12:04 | Discharge Summary ---
Diagnosis/Chief Complaint Date of Admission Jul 11, 2019 at 23:42 Date of Discharge Discharge Date: Jul 13, 2019 Admission Diagnosis A/P 1. Infectious colitis favored over questionable history of Crohn's disease with Crohn's flare we will continue broad-spectrum antibiotic coverage and pain medication as needed for pain control. 2. History of diverticulitis with past what I presume is likely sigmoid resection. Primary Care Ifeoma Coffey Aprn Discharge Summary Discharge Physical Exam Allergies: Coded Allergies: buspirone (Verified Allergy, Intermediate, SEVERE ANXIETY, 11/27/17) aripiprazole (Verified Allergy, Unknown, Heart racing, 08/24/18) bismuth subsalicylate (Unverified Allergy, Unknown, NAUSEA, 11/27/17) latex (Unverified Allergy, Unknown, RASH, 11/27/17) meperidine (Unverified Allergy, Unknown, RASH, 11/27/17) promethazine (Unverified Allergy, Unknown, DIFFICULTY BREATHING, 11/27/17) Uncoded Allergies: TAPE (Adverse Reaction, Unknown, RASH, 09/15/13) Vitals & I&Os Vital Signs Date Time Temp Pulse Resp B/P (MAP) Pulse Ox O2 Delivery O2 Flow Rate FiO2 07/13/19 08:00 36.4 75 18 92/56 (68) 97 Room Air General Appearance: No Apparent Distress, WD/WN Respiratory: Chest Non Tender, Lungs Clear, Normal Breath Sounds, No Accessory Muscle Use, No Respiratory Distress Cardiovascular: Regular Rate, Rhythm, No Edema, No Gallop, No JVD, No Murmur, Normal Peripheral Pulses Gastrointestinal: Normal Bowel Sounds, No Organomegaly, No Pulsatile Mass, Non Tender, Soft Hospital Course Was the Problem List Reviewed?: Yes the patient is a 34-year-old white female who presented to hospital with abdominal pain actually predominantly right sided. Her white count was mildly elevated at 11.3 thousand with normal chemistries and lipase level. CT evaluation revealed no appendiceal abnormality. There appeared to be diverticulitis around the descending colon close the surgical margin for her previous resection for diverticulitis a number of years ago. She stated that her current pain was similar to past diverticular related pain. She was started on Zosyn and had significant improvement in her abdominal pain with no chills or fever. She was again able to tolerate solids with no evidence for sepsis and her white count was down to 8.3 thousand. She'll be discharged another 5 days of Keflex 500 3 times a day and her regular home medication. She was advised to follow up with [facility] in 1-2 weeks. There were no other medication changes. Labs (last 24 hrs) Patient resulted labs reviewed. Discussion & Recommendations Discharge Planning: <30 minutes discharge planning Discharge Home Medications: Active Scripts Active Keflex (Cephalexin) 500 Mg Capsule 500 Mg PO TID 5 Days Ibuprofen 800 Mg Tablet 800 Mg PO Q8H PRN Ondansetron Odt (Ondansetron) 4 Mg Tab.rapdis 4 Mg PO Q6H PRN Reported Albuterol Sulfate 2.5 Mg/3 Ml Vial.neb 2 Puff IH Q4H Rexulti (Brexpiprazole) 4 Mg Tablet 4 Mg PO DAILY Cyclobenzaprine HCl 10 Mg Tablet 10 Mg PO TID PRN Tramadol HCl 50 Mg Tablet 50 Mg PO Q6H PRN Flonase Allergy Relief (Fluticasone Propionate) 9.9 Ml [place].susp 1 [place] NS DAILY 1 SPRAY EACH NARE DAILY Lipitor (Atorvastatin Calcium) 20 Mg Tablet 20 Mg PO HS Wellbutrin Sr (Bupropion HCl) 150 Mg Tablet.er 150 Mg PO BID Proair Hfa (Albuterol Sulfate) 1 Puff Puff 2 Puff IH Q4H PRN 1 PUFF = 90 MCG Protonix (Pantoprazole Sodium) 40 Mg Tablet.dr 40 Mg PO DAILY Albuterol Sulfate 0.63 Mg/3 Ml Vial.neb 0.63 Mg IH PRN Trileptal (Oxcarbazepine) 300 Mg Tablet 600 Mg PO AFTERNOON Trileptal (Oxcarbazepine) 300 Mg Tablet 900 Mg PO MORNING AND EVENING Instructions to patient/family Please see electronic discharge instructions given to patient. Clinical Quality Measures DVT/VTE Risk/Contraindication: Risk Factor Score Per Nursin RFS Level Per Nursing on Admit: 2=Moderate Copy Copies To 1: [facility]/MINE AMEZCUA MD Jul 13, 2019 12:04
[2019-07-13 13:01] VITALS: BP 92/50
--- NOTE | 2019-07-14 08:18 | NUR ---
Received dietary consult for MST score. Note pt has been discharged at this time. Amanda Hutton, MS, RD, LD
== END 2019-07-13 14:09 | disposition home or self-care (01) | DRG 392 ==
LOC: EDUNIT# 20:20 → ER FS 20:21 → 4TH 23:42
PROVIDERS: ADMIT Internal Medicine; ATTEND Internal Medicine
DX: A09 Infectious gastroenteritis and colitis, unspecified (principal); K57.92 Diverticulitis of intestine, part unspecified, without perforation or abscess without bleeding; E66.01 Morbid (severe) obesity due to excess calories; Z68.42 Body mass index [BMI] 45.0-49.9, adult; E11.9 Type 2 diabetes mellitus without complications; F17.210 Nicotine dependence, cigarettes, uncomplicated; J45.909 Unspecified asthma, uncomplicated; G47.30 Sleep apnea, unspecified; E78.00 Pure hypercholesterolemia, unspecified; K21.9 Gastro-esophageal reflux disease without esophagitis; F41.9 Anxiety disorder, unspecified; F31.9 Bipolar disorder, unspecified; Z90.49 Acquired absence of other specified parts of digestive tract; Z90.710 Acquired absence of both cervix and uterus; Z79.84 Long term (current) use of oral hypoglycemic drugs
CPT/HCPCS: 36415; 74177; 80053; 83690; 85025; 96361; 96365; 96375; 96376

== ENCOUNTER 2019-08-16 19:36 | Emergency (ER) | payer MEDICAID ==
[~2019-08-16] VITALS: Ht 162.5 cm; Wt 126.4 kg
[~2019-08-16 19:36] MED LIST changes: +ALBU2.5V4 IH; +CEPH-507 PO
[2019-08-16] MEDS ORDERED: KETOROLAC 60 MG/2 ML VIAL IM ONE (20:15)
[2019-08-16] MEDS ORDERED: ONDA4TAB11 PO (20:15)
[2019-08-16] MEDS ORDERED: HYDR-4226 PO (20:15)
--- NOTE | 2019-08-16 20:15 | ED EENT ---
History of Present Illness General Chief Complaint: Dental Problems/Pain Stated Complaint: NAUSEA/VOMITTING History of Present Illness Date Seen by Provider: Aug 16, 2019 Time Seen by Provider: 20:10 Initial Comments 34-year-old female with horrible dental caries Has been having pain in the area of her upper front incisors Says she was seen in clinic yesterday got an IM antibiotic and amoxicillin Complains of the pain is uncontrolled she already has tramadol and it's not helping and that she's having some nausea and vomiting and is out of Zofran which she uses because she has Crohn's Allergies and Home Medications Allergies Coded Allergies: buspirone (Verified Allergy, Intermediate, SEVERE ANXIETY, 11/27/17) aripiprazole (Verified Allergy, Unknown, Heart racing, 08/24/18) bismuth subsalicylate (Unverified Allergy, Unknown, NAUSEA, 11/27/17) latex (Unverified Allergy, Unknown, RASH, 11/27/17) meperidine (Unverified Allergy, Unknown, RASH, 11/27/17) promethazine (Unverified Allergy, Unknown, DIFFICULTY BREATHING, 11/27/17) Uncoded Allergies: TAPE (Adverse Reaction, Unknown, RASH, 09/15/13) Home Medications Albuterol Sulfate 0.63 Mg/3 Ml Vial.neb, 0.63 MG IH PRN, (Reported) Albuterol Sulfate 1 Puff Puff, 2 PUFF IH Q4H PRN for COUGH, (Reported) 1 PUFF = 90 MCG Albuterol Sulfate 2.5 Mg/3 Ml Vial.neb, 2 PUFF IH Q4H, (Reported) Atorvastatin Calcium 20 Mg Tablet, 20 MG PO HS, (Reported) Brexpiprazole 4 Mg Tablet, 4 MG PO DAILY, (Reported) Bupropion HCl 150 Mg Tablet.er, 150 MG PO BID, (Reported) Cephalexin 500 Mg Capsule, 500 MG PO TID Prescribed by: MINE JACOBS on 07/13/19 1157 Cyclobenzaprine HCl 10 Mg Tablet, 10 MG PO TID PRN for PAIN-MODERATE (5-7), (Reported) Fluticasone Propionate 9.9 Ml [place].susp, 1 SPRAY NS DAILY, (Reported) 1 SPRAY EACH NARE DAILY Ibuprofen 800 Mg Tablet, 800 MG PO Q8H PRN for PAIN Prescribed by: OLY HART on 02/12/19620 Ondansetron 4 Mg Tab.rapdis, 4 MG PO Q6H PRN for NAUSEA/VOMITING Prescribed by: ROSSY KENNY on 01/01/192005 Oxcarbazepine 300 Mg Tablet, 900 MG PO MORNING AND EVENING, (Reported) Oxcarbazepine 300 Mg Tablet, 600 MG PO AFTERNOON, (Reported) Pantoprazole Sodium 40 Mg Tablet.dr, 40 MG PO DAILY, (Reported) Tramadol HCl 50 Mg Tablet, 50 MG PO Q6H PRN for PAIN-MILD TO MODERATE, (Reported) Patient Home Medication List Home Medication List Reviewed: Yes Review of Systems Review of Systems Constitutional: No fever Eyes: No Symptoms Reported Ears: No Symptoms Reported Mouth: other (toothache) Throat: no symptoms reported Respiratory: no symptoms reported Cardiovascular: no symptoms reported Gastrointestinal: nausea, vomiting Musculoskeletal: no symptoms reported Skin: no symptoms reported Neurological: No Symptoms Reported Past Pxsbgam-Rbeysn-Sofhkr Hx Patient Social History Type Used: Cigarettes Former Smoker, Quit: Aug 12, 2018 2nd Hand Smoke Exposure: No Recent Foreign Travel: No Contact w/Someone Who Travel: No Recent Hopitalizations: No Immunizations Up To Date Tetanus Booster (TDap): Unknown Seasonal Allergies Seasonal Allergies: No Past Medical History Surgeries: Yes (EGD's, Colonoscopys, D&C, colon resection) Abdominal, Cystectomy, Hysterectomy Respiratory: Yes Asthma, Sleep Apnea Currently Using CPAP: No Currently Using BIPAP: No Cardiac: Yes High Cholesterol Neurological: No Reproductive Disorders: No Female Reproductive Disorders: Denies [employer] History: Hysterectomy Sexually Transmitted Disease: No HIV/AIDS: No Genitourinary: Yes Kidney Stones Gastrointestinal: Yes Gastroesophageal Reflux, Crohns Disease, Diverticulosis, Esophagitis Musculoskeletal: Yes Arthritis, Chronic Back Pain Endocrine: Yes (DM Type II, Morbid Obesity) Diabetes, Non-Insulin dep HEENT: No Loss of Vision: Bilateral Hearing Impairment: Denies Cancer: No Psychosocial: Yes Anxiety, Bipolar, Depression Integumentary: No Blood Disorders: No Adverse Reaction/Blood Tranf: No (HAS HAD BLOOD WITH NO REACTION) Physical Exam Height, Weight, BMI Height: 5'4.00" Weight: 262lbs. 0oz. 118.564555eu; 48.32 BMI Method:Stated General Appearance: no apparent distress Eyes: bilateral eye PERRL, bilateral eye EOMI Ears: bilateral ear TM normal Nose: normal inspection Mouth/Throat: other (patient has horrible dental caries I don't appreciate the presence of any abscess floor the mouth is negative oropharynx negative) Neck: supple Cardiovascular: regular rate, rhythm Respiratory: lungs clear Gastrointestinal: non tender, soft Progress/Results/Core Measures Results/Orders My Orders Orders - KINGS MORIN MD Ketorolac Injection (Toradol Injection) (08/16/19 20:15) Departure Impression Primary Impression: Dental caries Disposition: HOME, SELF-CARE Condition: Stable Departure-Patient Inst. Decision time for Depature: 20:14 Referrals: [facility] (PCP) Primary Care Physician LOPEZ SHULTZ APRN (Family) Primary Care Physician Patient Instructions: Dental Pain (DC) Scripts Ondansetron (Ondansetron Odt) 4 Mg Tab.rapdis 4 MG PO Q6H for Nausea, #20 TAB Prov: KINGS MORIN MD 08/16/19 Hydrocodone/Acetaminophen (Hydrocodone/Acetaminophen 5 MG/325 MG TAB) 1 Each Tablet 1 TAB PO Q6H for Pain MDD 10 TABS for 7 Days, #16 TAB Prov: KINGS MORIN MD 08/16/19 KINGS MORIN MD Aug 16, 2019 20:15
[2019-08-16 20:17] VITALS: BP 136/68
--- OUTSIDE RECORDS SUMMARY | 2019-08-20 04:13 | XMS REPORT | Continuity of Care Document ---
Author Organization Unknown Address Unknown Phone Unavailable Allergies Active Description Code Type Severity Reaction Onset Reported/Identified Relationship to Patient Clinical Status Yes TAPE TAPE Unknown RASH 09/15/2013 Yes buspirone [id number] Drug Allergy Moderate SEVERE ANXIETY 11/27/2017 Yes bismuth subsalicylate [id number] Drug Allergy Unknown NAUSEA 11/27/2017 Yes latex [id number] Drug Allergy Unknown RASH 11/27/2017 Yes meperidine [id number] Drug Allerg y Unknown RASH 11/27/2017 Yes promethazine [id number] Drug Allergy Unknown DIFFICULTY SANDI 11/27/2017 Yes aripiprazole [id number] Drug Allergy Unknown Heart racing 08/24/2018 Medications [...] PROPHYLACTIC VACC AGAINST STREPTOCOCCUS 11/20/2017 LEONARD SOSA MD Ot 626.2 EXCESSIVE MENSTRUATION 11/20/2017 LEONARD SOSA MD Ot V72.63 PRE-PROCEDURAL LABORATORY EXAMINATION 11/20/2017 LEONARD SOSA MD, Ot V72.84 EXAM PRE-OPERATIVE NOS 11/20/2017 LEONARD SOSA MD Ot 626.2 EXCESSIVE MENSTRUATION 11/20/2017 LEONARD SOSA MD, Ot V72.63 PRE-PROCEDURAL LABORATORY EXAMINATION 11/20/2017 LEONARD SOSA MD, Ot V72.84 EXAM PRE-OPERATIVE NOS 11/21/2017 MACARIO SINGH DO Ot K21. 9 GASTRO-ESOPHAGEAL REFLUX DISEASE WITHOUT 11/21/2017 MACARIO SINGH DO Ot K50. 90 CROHN'S DISEASE, UNSPECIFIED, WITHOUT CO 11/21/2017 MACARIO SINGH DO Ot Z01.818 ENCOUNTER FOR OTHER PREPROCEDURAL EXAMIN 11/27/2017 LENOARD SOSA MD Ot 626.2 EXCESSIVE MENSTRUATION 11/27/2017 LEONARD SOSA MD, Ot V72.63 PRE-PROCEDURAL LABORATORY EXAMINATION 11/27/2017 LEONARD SOSA MD, Ot V72.84 EXAM PRE-OPERATIVE NOS 11/27/2017 MACARIO SINGH DO Ot E11. 9 TYPE 2 DIABETES MELLITUS WITHOUT COMPLIC 11/27/2017 MACARIO SINGH DO Ot F17.210 NICOTINE DEPENDENCE, CIGARETTES, UNCOMPL 11/27/2017 MACARIO SINGH DO Ot G47. 33 OBSTRUCTIVE SLEEP APNEA (ADULT) (PEDIATR 11/27/2017 MACARIO SINGH DO Ot J45.909 UNSPECIFIED ASTHMA, UNCOMPLICATED 11/27/2017 MACARIO SINGH DO Ot K29. 70 GASTRITIS, UNSPECIFIED, WITHOUT BLEEDING 11/27/2017 MACARIO SINGH DO Ot 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 30 DVRTCLOS OF LG INT W/O PERFORATION OR AB 11/27/2017 MACARIO SINGH DO Ot Z79. 52 SUBSTANCE ADDICTION COORDINATOR (CURRENT) USE OF SYSTEMIC STER 11/27/2017 MACARIO SINGH DO Ot Z79. 84 SUBSTANCE ADDICTION COORDINATOR (CURRENT) USE OF ORAL HYPOGLYC 11/27/2017 MACARIO SINGH DO Ot Z79.899 OTHER SNF (CURRENT) DRUG THERAPY 11/28/2017 MACARIO SINGH DO Ot E11. 9 TYPE 2 DIABETES MELLITUS WITHOUT COMPLIC 11/28/2017 MACARIO SINGH DO Ot F17.210 NICOTINE DEPENDENCE, CIGARETTES, UNCOMPL 11/28/2017 MACARIO SINGH DO Ot G47. 33 OBSTRUCTIVE SLEEP APNEA (ADULT) (PEDIATR 11/28/2017 MACARIO SINGH DO Ot J45.909 UNSPECIFIED ASTHMA, UNCOMPLICATED 11/28/2017 MACARIO SINGH DO Ot K29. 70 GASTRITIS, UNSPECIFIED, WITHOUT BLEEDING 11/28/2017 MACARIO SINGH DO Ot K50. 10 CROHN'S DISEASE OF LARGE INTESTINE WITHO 11/28/2017 MACARIO SINGH DO Ot K57. 30 DVRTCLOS OF LG INT W/O PERFORATION OR AB 11/28/2017 MACARIO SINGH DO Ot Z79. 52 SUBSTANCE ADDICTION COORDINATOR (CURRENT) USE OF SYSTEMIC STER 11/28/2017 MACARIO SINGH DO Ot Z79. 84 SNF (CURRENT) USE OF ORAL HYPOGLYC 11/28/2017 MACARIO SINGH DO Ot Z79.899 OTHER SUBSTANCE ADDICTION COORDINATOR (CURRENT) DRUG THERAPY 12/19/2017 BRYSON SHEPHERD APRN Ot Z12.31 ENCNTR SCREEN MAMMOGRAM FOR MALIGNANT NE 01/04/2018 BRYSON SHEPHERD APRN Ot Z12.31 ENCNTR SCREEN MAMMOGRAM FOR MALIGNANT NE 08/17/2018 ETHAN HUANG MD Ot E78. 00 PURE HYPERCHOLESTEROLEMIA, UNSPECIFIED 08/17/2018 REINA MCCORMICK, ETHAN Olvera Ot F31. 9 BIPOLAR DISORDER, UNSPECIFIED 08/17/2018 REINA MCCORMICK, ETHAN [place] Ot F41. 9 ANXIETY DISORDER, UNSPECIFIED 08/17/2018 REINA MCCORMICK, ETHAN [place] Ot F60. 9 PERSONALITY DISORDER, UNSPECIFIED 08/17/2018 ETHAN HUANG MD Ot G47. 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 32 LEFT LOWER QUADRANT PAIN 08/17/2018 ETHAN HUANG MD Ot Z79. 51 SNF (CURRENT) USE OF INHALED STERO 08/17/2018 ETHAN HUANG MD Ot Z79. 52 SUBSTANCE ADDICTION COORDINATOR (CURRENT) USE OF SYSTEMIC STER 08/17/2018 ETHAN HUANG MD Ot Z87. 19 PERSONAL HISTORY OF OTHER DISEASES OF TH 08/17/2018 ETHAN HUANG MD Ot Z87.442 PERSONAL HISTORY OF URINARY CALCULI 08/17/2018 ETHAN HUANG MD Ot Z87.891 PERSONAL HISTORY OF NICOTINE DEPENDENCE 08/17/2018 ETHAN HUANG MD Ot Z88. 8 ALLERGY STATUS TO OT DRUG/MEDS/BIOL SUB 08/17/2018 [...] MALIGNANT NE 08/20/2018 ETHAN HUANG MD Ot E78. 00 PURE HYPERCHOLESTEROLEMIA, UNSPECIFIED 08/20/2018 ETHAN HUANG MD Ot F31. 9 BIPOLAR DISORDER, UNSPECIFIED 08/20/2018 ETHAN HUANG MD Ot F41. 9 ANXIETY DISORDER, UNSPECIFIED 08/20/2018 ETHAN HUANG MD Ot F60. 9 PERSONALITY DISORDER, UNSPECIFIED 08/20/2018 ETHAN HUANG MD Ot G47. 30 SLEEP APNEA, UNSPECIFIED 08/20/2018 ETHAN HUANG MD Ot J45.909 UNSPECIFIED ASTHMA, UNCOMPLICATED 08/20/2018 ETHAN HUANG MD Ot K57. 32 DVTRCLI OF LG INT W/O PERFORATION OR ABS 08/20/2018 ETHAN HUANG MD Ot R10. 32 LEFT LOWER QUADRANT PAIN 08/20/2018 ETHAN HUANG MD Ot Z79. 51 SUBSTANCE ADDICTION COORDINATOR (CURRENT) USE OF INHALED STERO 08/20/2018 ETHAN HUANG MD Ot Z79. 52 SNF (CURRENT) USE OF SYSTEMIC STER 08/20/2018 ETHAN HUANG MD Ot Z87. 19 PERSONAL HISTORY OF OTHER DISEASES OF TH 08/20/2018 ETHAN HUANG MD Ot Z87.442 PERSONAL HISTORY OF URINARY CALCULI 08/20/2018 ETHAN HUANG MD Ot Z87.891 PERSONAL HISTORY OF NICOTINE DEPENDENCE 08/20/2018 ETHAN HUANG MD Ot Z88. 8 ALLERGY STATUS TO OT DRUG/MEDS/BIOL SUB 08/20/2018 ETHAN HUANG MD Ot Z90.710 ACQUIRED ABSENCE OF BOTH CERVIX AND UTER 08/20/2018 ETHAN HUANG MD Ot Z91.040 LATEX ALLERGY STATUS 08/20/2018 ETHAN HUANG MD Ot Z91.048 OTHER NONMEDICINAL SUBSTANCE ALLERGY STA 08/26/2018 RACHEL MOREIRA DO Ot E66.01 MORBID (SEVERE) OBESITY DUE TO EXCESS CA 08/26/2018 RACHEL MOREIRA DO Ot E78.00 PURE HYPERCHOLESTEROLEMIA, UNSPECIFIED 08/26/2018 RACHEL MOREIRA DO Ot E88.81 METABOLIC SYNDROME 08/26/2018 RACHEL MOREIRA DO Ot F31.9 BIPOLAR DISORDER, UNSPECIFIED 08/26/2018 RACHEL MOREIRA DO Ot F41.9 ANXIETY DISORDER, UNSPECIFIED 08/26/2018 RACHEL MOREIRA DO Ot I10 ESSENTIAL (PRIMARY) HYPERTENSION 08/26/2018 RACHEL MOREIRA DO Ot J45.90 9 UNSPECIFIED ASTHMA, UNCOMPLICATED 08/26/2018 RACHEL MOREIRA DO Ot K21.9 GASTRO-ESOPHAGEAL REFLUX DISEASE WITHOUT 08/26/2018 RACHEL MOREIRA DO Ot K50.91 9 CROHN'S DISEASE, UNSPECIFIED, WITH UNSPE 08/26/2018 RACHEL MOREIRA DO Ot K57.32 DVTRCLI OF LG INT W/O PERFORATION OR ABS 08/26/2018 RACHEL MOREIRA DO Ot M19.91 PRIMARY OSTEOARTHRITIS, UNSPECIFIED SITE 08/26/2018 RACHEL MOREIRA DO Ot Z68.43 BODY MASS INDEX (BMI) 50-59.9, ADULT 08/26/2018 RACHEL MOREIRA DO Ot Z87.89 1 PERSONAL HISTORY OF NICOTINE DEPENDENCE 08/26/2018 RACHEL MOREIRA DO Ot Z88.8 ALLERGY STATUS TO OTH DRUG/MEDS/BIOL SUB 08/26/2018 RACHEL MOREIRA DO Ot Z90.49 ACQUIRED ABSENCE OF OTHER SPECIFIED PART 08/26/2018 RACHEL MOREIRA DO Ot Z90.71 0 ACQUIRED ABSENCE OF BOTH CERVIX AND UTER 08/26/2018 RACHEL MOREIRA DO Ot Z91.04 0 LATEX ALLERGY STATUS 10/11/2018 MACARIO SINGH DO Ot Z01.818 ENCOUNTER FOR OTHER PREPROCEDURAL EXAMIN 10/11/2018 MACARIO SINGH DO Ot Z01.818 ENCOUNTER FOR OTHER PREPROCEDURAL EXAMIN 10/11/2018 MACARIO SINGH DO Ot Z01.818 ENCOUNTER FOR OTHER PREPROCEDURAL EXAMIN 10/15/2018 MACARIO SINGH DO Ot E66. 01 MORBID (SEVERE) OBESITY DUE TO EXCESS CA 10/15/2018 MACARIO SINGH DO Ot F17.210 NICOTINE DEPENDENCE, CIGARETTES, UNCOMPL 10/15/2018 MACARIO SINGH DO Ot J45.909 UNSPECIFIED ASTHMA, UNCOMPLICATED 10/15/2018 MACARIO SINGH DO Ot K21. 9 GASTRO-ESOPHAGEAL REFLUX DISEASE WITHOUT 10/15/2018 MACARIO SINGH DO Ot K57. 30 DVRTCLOS OF LG INT W/O PERFORATION OR AB 10/15/2018 MACARIO SINGH DO Ot Z68. 43 BODY MASS INDEX (BMI) 50-59.9, ADULT 10/15/2018 MACARIO SINGH DO Ot Z79. 84 SNF (CURRENT) USE OF ORAL HYPOGLYC 10/15/2018 MACARIO SINGH DO Ot Z79.899 OTHER SNF (CURRENT) DRUG THERAPY 10/18/2018 MACARIO SINGH DO Ot E66. 01 MORBID (SEVERE) OBESITY DUE TO EXCESS CA 10/18/2018 MACARIO SINGH DO Ot F17.210 NICOTINE DEPENDENCE, CIGARETTES, UNCOMPL 10/18/2018 MACARIO SINGH DO Ot J45.909 UNSPECIFIED ASTHMA, UNCOMPLICATED 10/18/2018 MACARIO SINGH DO Ot K21. 9 GASTRO-ESOPHAGEAL REFLUX DISEASE WITHOUT 10/18/2018 MACARIO SINGH DO Ot K57. 30 DVRTCLOS OF LG INT W/O PERFORATION OR AB 10/18/2018 MACARIO SINGH DO Ot Z68. 43 BODY MASS INDEX (BMI) 50-59.9, ADULT 10/18/2018 MACARIO SINGH DO Ot Z79. 84 SUBSTANCE ADDICTION COORDINATOR (CURRENT) USE OF ORAL HYPOGLYC 10/18/2018 MACARIO SINGH DO Ot Z79.899 OTHER SUBSTANCE ADDICTION COORDINATOR (CURRENT) DRUG THERAPY 01/01/2019 KENNY DO, ROSSY L Ot E78.0 0 PURE HYPERCHOLESTEROLEMIA, UNSPECIFIED 01/01/2019 KENNY DO, ROSSY L Ot F31.9 BIPOLAR DISORDER, UNSPECIFIED 01/01/2019 KENNY DO, ROSSY L Ot F41.9 ANXIETY DISORDER, UNSPECIFIED 01/01/2019 KENNY DO, ROSSY L Ot J45.9 09 UNSPECIFIED ASTHMA, UNCOMPLICATED 01/01/2019 KENNY DO, ROSSY L Ot K21.9 GASTRO-ESOPHAGEAL REFLUX DISEASE WITHOUT 01/01/2019 KENNY DO, ROSSY L Ot K57.3 0 DVRTCLOS OF LG INT W/O PERFORATION OR AB 01/01/2019 KENNY DO, ROSSY L Ot K62.5 HEMORRHAGE OF ANUS AND RECTUM 01/01/2019 KENNY DO, ROSSY L Ot K92.1 MELENA 01/01/2019 KENNY DO, ROSSY L Ot Z79.5 1 SNF (CURRENT) USE OF INHALED STERO 01/01/2019 EFRAÍN HANDLEY ROSSY L Ot Z79.8 4 SUBSTANCE ADDICTION COORDINATOR (CURRENT) USE OF ORAL HYPOGLYC 01/01/2019 KENNY DO, ROSSY L Ot Z87.1 9 PERSONAL HISTORY OF OTHER DISEASES OF TH 01/01/2019 KENNY DO, ROSSY L Ot Z87.8 91 PERSONAL HISTORY OF NICOTINE DEPENDENCE 01/01/2019 KENNY DO, ROSSY L Ot Z88.5 ALLERGY STATUS TO NARCOTIC AGENT STATUS 01/01/2019 KENNY DO, ROSSY L Ot Z88.8 ALLERGY STATUS TO OTH DRUG/MEDS/BIOL SUB 01/01/2019 KENNY DO, ROSSY L Ot Z90.7 10 ACQUIRED ABSENCE OF BOTH CERVIX AND UTER 01/01/2019 KENNY DO, ROSSY L Ot Z91.0 40 LATEX ALLERGY STATUS 01/01/2019 LEONARD SOSA MD Ot 626.2 EXCESSIVE MENSTRUATION 01/01/2019 LEONARD SOSA MD Ot V72.63 PRE-PROCEDURAL LABORATORY EXAMINATION 01/01/2019 LEONARD SOSA MD Ot V72.84 EXAM PRE-OPERATIVE NOS 01/01/2019 BRYSON SHEPHERD RONALD Ot Z12.31 ENCNTR SCREEN MAMMOGRAM FOR MALIGNANT NE 01/17/2019 KENNY DO, ROSSY L Ot E78.0 0 PURE HYPERCHOLESTEROLEMIA, UNSPECIFIED 01/17/2019 KENNY DO, ROSSY L Ot F31.9 BIPOLAR DISORDER, UNSPECIFIED 01/17/2019 KENNY DO, ROSSY L Ot F41.9 ANXIETY DISORDER, UNSPECIFIED 01/17/2019 KENNY DO, ROSSY L Ot J45.9 09 UNSPECIFIED ASTHMA, UNCOMPLICATED 01/17/2019 KENNY DO, ROSSY L Ot K21.9 GASTRO-ESOPHAGEAL REFLUX DISEASE WITHOUT 01/17/2019 KENNY DO, ROSSY L Ot K57.3 0 DVRTCLOS OF LG INT W/O PERFORATION OR AB 01/17/2019 KENNY DO, ROSSY L Ot K62.5 HEMORRHAGE OF ANUS AND RECTUM 01/17/2019 KENNY DO, ROSSY L Ot K92.1 MELENA 01/17/2019 KENNY DO, ROSSY L Ot Z79.5 1 SNF (CURRENT) USE OF INHALED STERO 01/17/2019 KENNY DO, ROSSY L Ot Z79.8 4 SUBSTANCE ADDICTION COORDINATOR (CURRENT) USE OF ORAL HYPOGLYC 01/17/2019 KENNY DO, ROSSY L Ot Z87.1 9 PERSONAL HISTORY OF OTHER DISEASES OF TH 01/17/2019 KENNY DO, ROSSY L Ot Z87.8 91 PERSONAL HISTORY OF NICOTINE DEPENDENCE 01/17/2019 KENNY DO, ROSSY L Ot Z88.5 ALLERGY STATUS TO NARCOTIC AGENT STATUS 01/17/2019 KENNY DO, ROSSY L Ot Z88.8 ALLERGY STATUS TO OTH DRUG/MEDS/BIOL SUB 01/17/2019 KENNY DO, ROSSY L Ot Z90.7 10 ACQUIRED ABSENCE OF BOTH CERVIX AND UTER 01/17/2019 KENNY DO, ROSSY L Ot Z91.0 40 LATEX ALLERGY STATUS 02/12/2019 OLY HART DO, Ot E11 .9 TYPE 2 DIABETES MELLITUS WITHOUT COMPLIC 02/12/2019 OLY HART DO, Ot E66.01 MORBID (SEVERE) OBESITY DUE TO EXCESS CA 02/12/2019 OLY HART DO, Ot E78.00 PURE HYPERCHOLESTEROLEMIA, UNSPECIFIED 02/12/2019 OLY HART DO, Ot F31 .9 BIPOLAR DISORDER, UNSPECIFIED 02/12/2019 OLY HART DO, Ot F41 .9 ANXIETY DISORDER, UNSPECIFIED 02/12/2019 OLY HART DO, Ot G47.30 SLEEP APNEA, UNSPECIFIED 02/12/2019 OLY HART DO, Ot J45.909 UNSPECIFIED ASTHMA, UNCOMPLICATED 02/12/2019 OLY HART DO, Ot K21 .0 GASTRO-ESOPHAGEAL REFLUX DISEASE WITH ES 02/12/2019 OLY HART DO, Ot M54 .5 LOW BACK PAIN 02/12/2019 OLY HART DO, Ot M62.830 MUSCLE SPASM OF BACK 02/12/2019 OLY HART DO, Ot S23.9XXA SPRAIN OF UNSPECIFIED PARTS OF THORAX, I 02/12/2019 OLY HART DO, Ot S33.5XXA SPRAIN OF LIGAMENTS OF LUMBAR SPINE, INI 02/12/2019 OLY HART DO, Ot X50.1XXA OVEREXERTION FROM PROLONGED STATIC OR AW 02/12/2019 OLY HART DO Ot Z68.42 BODY MASS INDEX (BMI) 45.0-49.9, ADULT 02/12/2019 OLY HART DO, Ot Z79.84 SUBSTANCE ADDICTION COORDINATOR (CURRENT) USE OF ORAL HYPOGLYC 02/12/2019 OLY HART DO, Ot Z87.442 PERSONAL HISTORY OF URINARY CALCULI 02/12/2019 OLY HART DO, Ot Z87.891 PERSONAL HISTORY OF NICOTINE DEPENDENCE 02/12/2019 OLY HART DO, Ot Z88 .1 ALLERGY STATUS TO OTHER ANTIBIOTIC AGENT 02/12/2019 OLY HART DO, Ot Z88 .5 ALLERGY STATUS TO NARCOTIC AGENT STATUS 02/12/2019 OLY HART DO, Ot Z88 .8 ALLERGY STATUS TO OTH DRUG/MEDS/BIOL SUB 02/12/2019 OLY HART DO, Ot Z90.710 ACQUIRED ABSENCE OF BOTH CERVIX AND UTER 02/12/2019 OLY HART DO, Ot Z91.040 LATEX ALLERGY STATUS 02/14/2019 OLY HART DO, Ot E11 .9 TYPE 2 DIABETES MELLITUS WITHOUT COMPLIC 02/14/2019 OLY HART DO, Ot E66.01 MORBID (SEVERE) OBESITY DUE TO EXCESS CA 02/14/2019 OLY HART DO, Ot E78.00 PURE HYPERCHOLESTEROLEMIA, UNSPECIFIED 02/14/2019 LOY HART DO, Ot F31 .9 BIPOLAR DISORDER, UNSPECIFIED 02/14/2019 OLY HART DO, Ot F41 .9 ANXIETY DISORDER, UNSPECIFIED 02/14/2019 OLY HART DO, Ot G47.30 SLEEP APNEA, UNSPECIFIED 02/14/2019 OLY HART DO, Ot J45.909 UNSPECIFIED ASTHMA, UNCOMPLICATED 02/14/2019 OLY HART DO, Ot K21 .0 GASTRO-ESOPHAGEAL REFLUX DISEASE WITH ES 02/14/2019 OLY HART DO, Ot M54 .5 LOW BACK PAIN 02/14/2019 OLY HART DO, Ot M62.830 MUSCLE SPASM OF BACK 02/14/2019 OLY HART DO, Ot S23.9XXA SPRAIN OF UNSPECIFIED PARTS OF THORAX, I 02/14/2019 OLY HART DO, Ot S33.5XXA SPRAIN OF LIGAMENTS OF LUMBAR SPINE, INI 02/14/2019 OLY HART DO, Ot X50.1XXA OVEREXERTION FROM PROLONGED STATIC OR AW 02/14/2019 OLY HART DO, Ot Z68.42 BODY MASS INDEX (BMI) 45.0-49.9, ADULT 02/14/2019 OLY HART DO, Ot Z79.84 SNF (CURRENT) USE OF ORAL HYPOGLYC 02/14/2019 OLY HART DO, Ot Z87.442 PERSONAL HISTORY OF URINARY CALCULI 02/14/2019 OLY HART DO, Ot Z87.891 PERSONAL HISTORY OF NICOTINE DEPENDENCE 02/14/2019 OLY HART DO, Ot Z88 .1 ALLERGY STATUS TO OTHER ANTIBIOTIC AGENT 02/14/2019 OLY HART DO, Ot Z88 .5 ALLERGY STATUS TO NARCOTIC AGENT STATUS 02/14/2019 OLY HART DO, Ot Z88 .8 ALLERGY STATUS TO OTH DRUG/MEDS/BIOL SUB 02/14/2019 OLY HART DO, Ot Z90.710 ACQUIRED ABSENCE OF BOTH CERVIX AND UTER 02/14/2019 OLY HART DO Ot Z91.040 LATEX ALLERGY STATUS 02/14/2019 OLY HART DO, Ot E11 .9 TYPE 2 DIABETES MELLITUS WITHOUT COMPLIC 02/14/2019 OLY HART DO, Ot E66.01 MORBID (SEVERE) OBESITY DUE TO EXCESS CA 02/14/2019 OLY HART DO, Ot E78.00 PURE HYPERCHOLESTEROLEMIA, UNSPECIFIED 02/14/2019 OLY HART DO, Ot F31 .9 BIPOLAR DISORDER, UNSPECIFIED 02/14/2019 OLY HART DO, Ot F41 .9 ANXIETY DISORDER, UNSPECIFIED 02/14/2019 OLY HART DO, Ot G47.30 SLEEP APNEA, UNSPECIFIED 02/14/2019 OLY HART DO, Ot J45.909 UNSPECIFIED ASTHMA, UNCOMPLICATED 02/14/2019 OLY HART DO, Ot K21 .0 GASTRO-ESOPHAGEAL REFLUX DISEASE WITH ES 02/14/2019 OLY HART DO, Ot M54 .5 LOW BACK PAIN 02/14/2019 OLY HART DO, Ot M62.830 MUSCLE SPASM OF BACK 02/14/2019 OLY HART DO, Ot S23.9XXA SPRAIN OF UNSPECIFIED PARTS OF THORAX, I 02/14/2019 OLY HART DO, Ot S33.5XXA SPRAIN OF LIGAMENTS OF LUMBAR SPINE, INI 02/14/2019 OLY HART DO, Ot X50.1XXA OVEREXERTION FROM PROLONGED STATIC OR AW 02/14/2019 OLY HART DO, Ot Z68.42 BODY MASS INDEX (BMI) 45.0-49.9, ADULT 02/14/2019 OLY HART DO Ot Z79.84 SUBSTANCE ADDICTION COORDINATOR (CURRENT) USE OF ORAL HYPOGLYC 02/14/2019 OLY HART DO, Ot Z87.442 PERSONAL HISTORY OF URINARY CALCULI 02/14/2019 OLY HART DO, Ot Z87.891 PERSONAL HISTORY OF NICOTINE DEPENDENCE 02/14/2019 OLY HART DO, Ot Z88 .1 ALLERGY STATUS TO OTHER ANTIBIOTIC AGENT 02/14/2019 OLY HART DO, Ot Z88 .5 ALLERGY STATUS TO NARCOTIC AGENT STATUS 02/14/2019 OLY HART DO, Ot Z88 .8 ALLERGY STATUS TO OTH DRUG/MEDS/BIOL SUB 02/14/2019 OLY HART DO, Ot Z90.710 ACQUIRED ABSENCE OF BOTH CERVIX AND UTER 02/14/2019 OLY HART DO, Ot Z91.040 LATEX ALLERGY STATUS 02/19/2019 OLY HART DO, Ot E11 .9 TYPE 2 DIABETES MELLITUS WITHOUT COMPLIC 02/19/2019 OLY HART DO, Ot E66.01 MORBID (SEVERE) OBESITY DUE TO EXCESS CA 02/19/2019 OLY HART DO, Ot E78.00 PURE HYPERCHOLESTEROLEMIA, UNSPECIFIED 02/19/2019 OLY HART DO, Ot F31 .9 BIPOLAR DISORDER, UNSPECIFIED 02/19/2019 OLY AHRT DO, Ot F41 .9 ANXIETY DISORDER, UNSPECIFIED 02/19/2019 OLY HART DO, Ot G47.30 SLEEP APNEA, UNSPECIFIED 02/19/2019 OLY HART DO, Ot J45.909 UNSPECIFIED ASTHMA, UNCOMPLICATED 02/19/2019 OLY HART DO, Ot K21 .0 GASTRO-ESOPHAGEAL REFLUX DISEASE WITH ES 02/19/2019 OLY HART DO, Ot M54 .5 LOW BACK PAIN 02/19/2019 OLY HART DO, Ot M62.830 MUSCLE SPASM OF BACK 02/19/2019 OLY HART DO, Ot S23.9XXA SPRAIN OF UNSPECIFIED PARTS OF THORAX, I 02/19/2019 OLY HART DO, Ot S33.5XXA SPRAIN OF LIGAMENTS OF LUMBAR SPINE, INI 02/19/2019 OLY HART DO, Ot X50.1XXA OVEREXERTION FROM PROLONGED STATIC OR AW 02/19/2019 OLY HART DO, Ot Z68.42 BODY MASS INDEX (BMI) 45.0-49.9, ADULT 02/19/2019 OLY HART DO, Ot Z79.84 SNF (CURRENT) USE OF ORAL HYPOGLYC 02/19/2019 OLY HART DO, Ot Z87.442 PERSONAL HISTORY OF URINARY CALCULI 02/19/2019 OLY HART DO, Ot Z87.891 PERSONAL HISTORY OF NICOTINE DEPENDENCE 02/19/2019 OLY HART DO, Ot Z88 .1 ALLERGY STATUS TO OTHER ANTIBIOTIC AGENT 02/19/2019 OLY HART DO, Ot Z88 .5 ALLERGY STATUS TO NARCOTIC AGENT STATUS 02/19/2019 OLY HART DO, Ot Z88 .8 ALLERGY STATUS TO OTH DRUG/MEDS/BIOL SUB 02/19/2019 OLY HART DO Ot Z90.710 ACQUIRED ABSENCE OF BOTH CERVIX AND UTER 02/19/2019 OLY HART DO Ot Z91.040 LATEX ALLERGY STATUS 03/09/2019 KENNY DO, ROSSY L Ot E11.9 TYPE 2 DIABETES MELLITUS WITHOUT COMPLIC 03/09/2019 KENNY DO, ROSSY L Ot E66.0 1 MORBID (SEVERE) OBESITY DUE TO EXCESS CA 03/09/2019 KENNY DO, ROSSY L Ot E78.0 0 PURE HYPERCHOLESTEROLEMIA, UNSPECIFIED 03/09/2019 KENNY DO, ROSSY L Ot F17.2 10 NICOTINE DEPENDENCE, CIGARETTES, UNCOMPL 03/09/2019 KENNY DO, ROSSY L Ot F31.9 BIPOLAR DISORDER, UNSPECIFIED 03/09/2019 KENNY DO, ROSSY L Ot F41.9 ANXIETY DISORDER, UNSPECIFIED 03/09/2019 KENNY DO, ROSSY L Ot J45.9 09 UNSPECIFIED ASTHMA, UNCOMPLICATED 03/09/2019 KENNY DO, ROSSY L Ot K21.9 GASTRO-ESOPHAGEAL REFLUX DISEASE WITHOUT 03/09/2019 KENNY DO, ROSSY L Ot R21 RASH AND OTHER NONSPECIFIC SKIN ERUPTION 03/09/2019 KENNY DO, ROSSY L Ot Z68.4 2 BODY MASS INDEX (BMI) 45.0-49.9, ADULT 03/09/2019 KENNY DO, ROSSY L Ot Z79.5 1 SNF (CURRENT) USE OF INHALED STERO 03/09/2019 KENNY DO, ROSSY L Ot Z79.5 2 SUBSTANCE ADDICTION COORDINATOR (CURRENT) USE OF SYSTEMIC STER 03/09/2019 KENNY DO, ROSSY L Ot Z79.8 4 SUBSTANCE ADDICTION COORDINATOR (CURRENT) USE OF ORAL HYPOGLYC 03/09/2019 KENNY DO, ROSSY L Ot Z87.1 9 PERSONAL HISTORY OF OTHER DISEASES OF TH 03/09/2019 KENNY DO, ROSSY L Ot Z87.4 42 PERSONAL HISTORY OF URINARY CALCULI 03/09/2019 KENNY DO, ROSSY L Ot Z88.5 ALLERGY STATUS TO NARCOTIC AGENT STATUS 03/09/2019 KENNY DO, ROSSY L Ot Z88.8 ALLERGY STATUS TO OTH DRUG/MEDS/BIOL SUB 03/09/2019 KENNY DO, ROSSY L Ot Z90.7 10 ACQUIRED ABSENCE OF BOTH CERVIX AND UTER 03/09/2019 KENNY DO, ROSSY L Ot Z91.0 40 LATEX ALLERGY STATUS 03/11/2019 KENNY DO, ROSSY L Ot E11.9 TYPE 2 DIABETES MELLITUS WITHOUT COMPLIC 03/11/2019 KENNY DO, ROSSY L Ot E66.0 1 MORBID (SEVERE) OBESITY DUE TO EXCESS CA 03/11/2019 KENNY DO, ROSSY L Ot E78.0 0 PURE HYPERCHOLESTEROLEMIA, UNSPECIFIED 03/11/2019 KENNY DO, ROSSY L Ot F17.2 10 NICOTINE DEPENDENCE, CIGARETTES, UNCOMPL 03/11/2019 KENNY DO, ROSSY L Ot F31.9 BIPOLAR DISORDER, UNSPECIFIED 03/11/2019 KENNY DO, ROSSY L Ot F41.9 ANXIETY DISORDER, UNSPECIFIED 03/11/2019 KENNY DO, ROSSY L Ot J45.9 09 UNSPECIFIED ASTHMA, UNCOMPLICATED 03/11/2019 KENNY DO, ROSSY L Ot K21.9 GASTRO-ESOPHAGEAL REFLUX DISEASE WITHOUT 03/11/2019 KENNY DO, ROSSY L Ot R21 RASH AND OTHER NONSPECIFIC SKIN ERUPTION 03/11/2019 KENNY DO, ROSSY L Ot Z68.4 2 BODY MASS INDEX (BMI) 45.0-49.9, ADULT 03/11/2019 KENNY DO, ROSSY L Ot Z79.5 1 SNF (CURRENT) USE OF INHALED STERO 03/11/2019 KENNY DO, ROSSY L Ot Z79.5 2 SNF (CURRENT) USE OF SYSTEMIC STER 03/11/2019 KENNY DO, ROSSY L Ot Z79.8 4 SUBSTANCE ADDICTION COORDINATOR (CURRENT) USE OF ORAL HYPOGLYC 03/11/2019 KENNY DO, ROSSY L Ot Z87.1 9 PERSONAL HISTORY OF OTHER DISEASES OF TH 03/11/2019 KENNY DO, ROSSY L Ot Z87.4 42 PERSONAL HISTORY OF URINARY CALCULI 03/11/2019 KENNY DO, ROSSY L Ot Z88.5 ALLERGY STATUS TO NARCOTIC AGENT STATUS 03/11/2019 KENNY DO, ROSSY L Ot Z88.8 ALLERGY STATUS TO OTH DRUG/MEDS/BIOL SUB 03/11/2019 KENNY DO, ROSSY L Ot Z90.7 10 ACQUIRED ABSENCE OF BOTH CERVIX AND UTER 03/11/2019 KENNY DO, ROSSY L Ot Z91.0 40 LATEX ALLERGY STATUS 06/21/2019 KEITH MCCORMICK, MINE Camilo Ot E11. 9 TYPE 2 DIABETES MELLITUS WITHOUT COMPLIC 06/21/2019 KEITH MCCORMICK, MINE Camilo Ot E66. 01 MORBID (SEVERE) OBESITY DUE TO EXCESS CA 06/21/2019 KEITH MCCORMICK, MINE Camilo Ot E78. 00 PURE HYPERCHOLESTEROLEMIA, UNSPECIFIED 06/21/2019 KEITH MCCORMICK, MINE Ton Ot F17.210 NICOTINE DEPENDENCE, CIGARETTES, UNCOMPL 06/21/2019 KEITH MCCORMICK, MINE Camilo Ot F31. 9 BIPOLAR DISORDER, UNSPECIFIED 06/21/2019 KEITH MCCORMICK, MINE Camilo Ot F41. 9 ANXIETY DISORDER, UNSPECIFIED 06/21/2019 KEITH MCCORMICK, MINE Camilo Ot J45.909 UNSPECIFIED ASTHMA, UNCOMPLICATED 06/21/2019 KEITH MCCORMICK, MINE Camilo Ot K21. 9 GASTRO-ESOPHAGEAL REFLUX DISEASE WITHOUT 06/21/2019 KEITH MCCORMICK, MINE Camilo Ot M54. 5 LOW BACK PAIN 06/21/2019 KEITH MCCORMICK, MINE Camilo Ot M54. 9 DORSALGIA, UNSPECIFIED 06/21/2019 KEITH MCCORMICK, MINE Camilo Ot Z79. 51 SNF (CURRENT) USE OF INHALED STERO 06/21/2019 KEITH MCCORMICK, MINE Camilo Ot Z79. 84 SNF (CURRENT) USE OF ORAL HYPOGLYC 06/21/2019 KEITH MCCORMICK, MINE Camilo Ot Z87.442 PERSONAL HISTORY OF URINARY CALCULI 06/21/2019 KEITH MCCORMICK, MINE Camilo Ot Z88. 5 ALLERGY STATUS TO NARCOTIC AGENT STATUS 06/21/2019 KEITH MCCORMICK, MINE Camilo Ot Z88. 8 ALLERGY STATUS TO OTH DRUG/MEDS/BIOL SUB 06/21/2019 KEITH MCCORMICK, MINE Camilo Ot Z90.710 ACQUIRED ABSENCE OF BOTH CERVIX AND UTER 06/21/2019 KEITH MCCORMICK, MINE Camilo Ot Z91.040 LATEX ALLERGY STATUS 06/21/2019 BRYSON SHEPHERD APRN Ot Z12.31 ENCNTR SCREEN MAMMOGRAM FOR MALIGNANT NE 06/28/2019 KEITH MCCORMICK, MINE Camilo Ot E11. 9 TYPE 2 DIABETES MELLITUS WITHOUT COMPLIC 06/28/2019 KEITH MCCORMICK, MINE Camilo Ot E66. 01 MORBID (SEVERE) OBESITY DUE TO EXCESS CA 06/28/2019 KEITH MCCORMICK, MINE Camilo Ot E78. 00 PURE HYPERCHOLESTEROLEMIA, UNSPECIFIED 06/28/2019 KEITH MCCORMICK, MINE Camilo Ot F17.210 NICOTINE DEPENDENCE, CIGARETTES, UNCOMPL 06/28/2019 KEITH MCCORMICK, MINE Camilo Ot F31. 9 BIPOLAR DISORDER, UNSPECIFIED 06/28/2019 KEITH MCCORMICK, MINE Camilo Ot F41. 9 ANXIETY DISORDER, UNSPECIFIED 06/28/2019 KEITH MCCORMICK, MINE Camilo Ot J45.909 UNSPECIFIED ASTHMA, UNCOMPLICATED 06/28/2019 KEITH MCCORMICK, MINE Camilo Ot K21. 9 GASTRO-ESOPHAGEAL REFLUX DISEASE WITHOUT 06/28/2019 KEITH MCCORMICK, MINE Camilo Ot M54. 5 LOW BACK PAIN 06/28/2019 KEITH MCCORMICK, MINE Camilo Ot M54. 9 DORSALGIA, UNSPECIFIED 06/28/2019 KEITH MCCORMICK, MINE Camilo Ot Z79. 51 SUBSTANCE ADDICTION COORDINATOR (CURRENT) USE OF INHALED STERO 06/28/2019 KEITH MCCORMICK, MINE Camilo Ot Z79. 84 SNF (CURRENT) USE OF ORAL HYPOGLYC 06/28/2019 KEITH MCCORMICK, MINE Camilo Ot Z87.442 PERSONAL HISTORY OF URINARY CALCULI 06/28/2019 KEITH MCCORMICK, MINE Camilo Ot Z88. 5 ALLERGY STATUS TO NARCOTIC AGENT STATUS 06/28/2019 KEITH MCCORMICK, MINE Camilo Ot Z88. 8 ALLERGY STATUS TO OTH DRUG/MEDS/BIOL SUB 06/28/2019 KEITH MCCORMICK, MINE Camilo Ot Z90.710 ACQUIRED ABSENCE OF BOTH CERVIX AND UTER 06/28/2019 KEITH MCCORMICK, MINE Camilo Ot Z91.040 LATEX ALLERGY STATUS 07/13/2019 REYNALDO MCCORMICK, MINE [place] Ot A09 INFECTIOUS GASTROENTERITIS AND COLITIS, 07/13/2019 REYNALDO MCCORMICK, MINE [place] Ot E11. 9 TYPE 2 DIABETES MELLITUS WITHOUT COMPLIC 07/13/2019 REYNALDO MCCORMICK, MINE [place] Ot E66. 01 MORBID (SEVERE) OBESITY DUE TO EXCESS CA 07/13/2019 REYNALDO MCCORMICK, MINE [place] Ot E78. 00 PURE HYPERCHOLESTEROLEMIA, UNSPECIFIED 07/13/2019 MINE JACOBS MD Ot F17.210 NICOTINE DEPENDENCE, CIGARETTES, UNCOMPL 07/13/2019 REYNALDO MCCORMICK, MINE [place] Ot F31. 9 BIPOLAR DISORDER, UNSPECIFIED 07/13/2019 REYNALDO MCCORMICK, MINE Townsend Ot F41. 9 ANXIETY DISORDER, UNSPECIFIED 07/13/2019 REYNALDO MCCORMICK, MINE Townsend Ot G47. 30 SLEEP APNEA, UNSPECIFIED 07/13/2019 MINE JACOBS MD Ot J45.909 UNSPECIFIED ASTHMA, UNCOMPLICATED 07/13/2019 MINE JACOBS MD, Ot K21. 9 GASTRO-ESOPHAGEAL REFLUX DISEASE WITHOUT 07/13/2019 MINE JACOBS MD, Ot K57. 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 42 BODY MASS INDEX (BMI) 45.0-49.9, ADULT 07/13/2019 MINE JACOBS MD Ot Z79. 84 SUBSTANCE ADDICTION COORDINATOR (CURRENT) USE OF ORAL HYPOGLYC 07/13/2019 MINE JACOBS MD, Ot Z90. 49 ACQUIRED ABSENCE OF OTHER SPECIFIED PART 07/13/2019 MINE JACOBS MD, Ot Z90.710 ACQUIRED ABSENCE OF BOTH CERVIX AND UTER 08/16/2019 JOAO BRYSON Linda CARDENAS Ot Z12.31 ENCNTR SCREEN MAMMOGRAM FOR MALIGNANT NE Procedures There is no data. Results Test Result Range CMP - 02/26/17 15:42 Glucose, Serum 92 mg/dL 65-99 BUN 9 mg/dL 6-20 Creatinine, Serum 0.62 mg/dL 0.57-1.00 eGFR If NonAfricn Am 119 mL/min/1.73 >59 eGFR If Africn Am 137 mL/min/1.73 >5 9 BUN/Creatinine Ratio 15 9-23 Sodium, Serum 142 [...] PDM - PAIN MGMT (PROFILE 3 WITH CONFIRMA TION) - 03/15/18 13:24 Prescribed Drug 1 Tramadol NRG Creatinine 260.4 mg/dL > or = 20.0 pH 6.49 4.5 - 9.0 Oxidant NEGATIVE [...] aOH alprazolam CONSISTENT NRG Alphahydroxymidazolam NEGATIVE ng/mL < 50 medMATCH aOH midazolam CONSISTENT NRG Alphahydroxytriazolam NEGATIVE ng/mL < 50 medMATCH aOH triazolam CONSISTENT NRG Aminoclonazepam NEGATIVE ng/mL <25 medMATCH Aminoclonazepam CONSISTENT NRG Hydroxyethylflurazepam NEGATIVE ng/mL <50 medMATCH OH,Et flurazepam CONSISTENT NR G Lorazepam NEGATIVE ng/mL <50 medMATCH Lorazepam CONSISTENT [...] <5.0 NON HDL CHOLESTEROL 101 mg/dL (calc) <13 0 CMP - 03/29/18 10:45 GLUCOSE 73 mg/dL 65-99 UREA NITROGEN (BUN) 7 mg/dL 7-25 CREATININE 0.70 mg/dL 0.50-1.10 eGFR NON-AFR. BURUNDIAN 112 mL/min/1.73m2 > OR = 60 eGFR 130 mL/min/1.73m2 > OR = 60 BUN/CREATININE RATIO NOT APPLICABLE (calc) 6-22 SODIUM 139 mmol/L 135-146 POTASSIUM 4.4 mmol/L 3.5-5.3 CHLORIDE 104 mmol/L 98-110 CARBON DIOXIDE 21 mmol/L 20-32 CALCIUM 9.3 mg/dL 8.6-10.2 PROTEIN, TOTAL 7.1 g/dL 6.1-8.1 ALBUMIN 4.3 g/dL 3.6-5.1 GLOBULIN 2.8 g/dL (calc) 1.9-3.7 ALBUMIN/GLOBULIN RATIO 1.5 (calc) 1.0-2. 5 BILIRUBIN, TOTAL 0.3 mg/dL 0.2-1.2 ALKALINE PHOSPHATASE 70 U/L 33-115 AST 21 U/L 10-30 ALT 21 U/L 6-29 THYROID ANALYZER - 03/29/18 10:45 TSH 1.30 mIU/L NRG Complete urinalysis with reflex to cultu re - 08/17/18 07:40 Urine color determination YELLOW NRG Urine clarity determination CLEAR NR G Urine pH measurement by test strip 7.5 5-9 Specific gravity of urine by test strip 1.010 1.016-1.022 Urine protein assay by test strip, semi-quantitative NEGATIVE NEGATIVE Urine glucose detection by automated test strip NE GATIVE NEGATIVE Erythrocytes detection in urine sediment by light micr oscopy TRACE NEGATIVE Urine ketones detection by automated test strip NE GATIVE NEGATIVE Urine nitrite detection by test strip NEGATIVE NEGATIVE Urine total bilirubin detection by test strip NEGA TIVE NEGATIVE Urine urobilinogen measurement by automated test strip (mass/volume) 0.2 mg/dL NORMAL Urine leukocyte esterase detection by dipstick 1+ NEGATIVE Automated urine sediment erythrocyte cou nt by microscopy (number/high power field) [HPF] NRG Automated urine sediment leukocyte count by microscopy (number/high power field) [HPF] NRG Bacteria detection in urine sediment by light microsco py MODERATE NRG Squamous epithelial cells detection in u rine sediment by light microscopy 25-50 NRG Crystals detection in urine sediment by light microsco py NONE NRG Casts detection in urine sediment by light microscopy NONE NRG Mucus detection in urine sediment by light microscopy NEGATIVE NRG Complete urinalysis with reflex to culture NO NRG Complete blood count (CBC) with automate d white blood cell (WBC) differential - 08/17/18 08:00 Blood leukocytes automated count (number/volume) 7.8 10*3/uL 4.3-11.0 Blood erythrocytes automated count (number/volume) 5.75 10*6/uL 4.35-5.85 Venous blood hemoglobin measurement (mass/volume) 15.6 g/dL 11.5-16.0 Blood hematocrit (volume fraction) 48 % 35-52 Automated erythrocyte mean corpuscular volume 83 [ foz_us] 80-99 Automated erythrocyte mean corpuscular h emoglobin (mass per erythrocyte) 27 pg 25-34 Automated erythrocyte mean corpuscular h emoglobin concentration measurement (mass/volume) 33 g/dL 32-36 Automated erythrocyte distribution width ratio 14. 6 % 10.0- 14.5 Automated blood platelet count [...] 10*3 1.0-4.0 Blood monocytes automated count (number/volume) 0. 7 10*3 0.0-1.0 Automated eosinophil count 0.2 10*3/uL 0 .0-0.3 Automated blood basophil count (count/volume) 0.0 10*3/uL 0.0-0.1 Urine beta human chorionic gonadotropin (hCG) measurement - 08/17/18 08:00 Urine beta human chorionic gonadotropin (hCG) measurem ent NEGATIVE NEGATIVE Comprehensive metabolic panel - 08/17/18 08:00 Serum or plasma sodium measurement (moles/volume) 140 mmol/L 135-145 Serum or plasma potassium measurement (moles/volume) 3.8 mmol/L 3.6-5.0 Serum or plasma chloride measurement (moles/volume) 106 mmol/L 98-107 Carbon dioxide 15 mmol/L 21-32 Serum or plasma anion gap determination (moles/volume) 19 mmol/L 5-14 Serum or plasma urea nitrogen measurement (mass/volume ) 6 mg/dL 7-18 Serum or plasma creatinine measurement (mass/volume) 0.63 mg/dL 0.60-1.30 Serum or plasma urea nitrogen/creatinine mass ratio 10 NRG Serum or plasma creatinine measurement w ith calculation of estimated glomerular filtration rate > NRG Serum or plasma glucose measurement (mass/volume) 90 mg/dL 70-105 Serum or plasma calcium measurement (mass/volume) 8.1 mg/dL 8.5-10.1 Serum or plasma total bilirubin measurement (mass/volu me) 0.3 mg/dL 0.1-1.0 Serum or plasma alkaline phosphatase gabrielle surement (enzymatic activity/volume) 64 U/L 40-136 Serum or plasma aspartate aminotransfera se measurement (enzymatic activity/volume) 14 U/L 5-34 Serum or plasma alanine aminotransferase measurement (enzymatic activity/volume) 17 U/L 0-55 Serum or plasma protein measurement (mass/volume) 6.6 g/dL 6.4-8.2 Serum or plasma albumin measurement (mass/volume) 3.6 g/dL 3.2-4.5 CALCIUM CORRECTED 8.4 mg/dL 8.5-10.1 Complete urinalysis with reflex to cultu re - 08/23/18 22:43 Urine color determination YELLOW NRG Urine clarity determination CLOUDY NR G Urine pH measurement by test strip 7.0 5-9 Specific gravity of urine by test strip 1.020 1.016-1.022 Urine protein assay by test strip, semi-quantitative NEGATIVE NEGATIVE Urine glucose detection by automated test strip NE GATIVE NEGATIVE Erythrocytes detection in urine sediment by light micr oscopy TRACE-I NEGATIVE Urine ketones detection by automated test strip NE GATIVE NEGATIVE Urine nitrite detection by test strip NEGATIVE NEGATIVE Urine total bilirubin detection by test strip NEGA TIVE NEGATIVE Urine urobilinogen measurement by automated test strip (mass/volume) 0.2 mg/dL NORMAL Urine leukocyte esterase detection by dipstick TRA CE NEGATIVE Automated urine sediment erythrocyte cou nt by microscopy (number/high power field) RARE NRG Automated urine sediment leukocyte count by microscopy (number/high power field) [HPF] NRG Bacteria detection in urine sediment by light microsco py 1+ NRG Squamous epithelial cells detection in u rine sediment by light microscopy 5-10 NRG Crystals detection in urine sediment by light microsco py NONE NRG Casts detection in urine sediment by light microscopy NONE NRG Mucus detection in urine sediment by light microscopy SMALL NRG Complete urinalysis with reflex to culture NO NRG Urine beta human chorionic gonadotropin (hCG) measurement - 08/23/18 22:43 Urine beta human chorionic gonadotropin (hCG) measurem ent NEGATIVE NEGATIVE Automated blood complete blood count (he mogram) panel - 08/23/18 23:05 Blood leukocytes automated count (number/volume) 11.8 10*3/uL 4.3-11.0 Blood erythrocytes automated count (number/volume) 5.13 10*6/uL 4.35-5.85 Venous blood hemoglobin measurement (mass/volume) 13.9 g/dL 11.5-16.0 Blood hematocrit (volume fraction) 43 % 35-52 Automated erythrocyte mean corpuscular volume 83 [ foz_us] 80-99 Automated erythrocyte mean corpuscular h emoglobin (mass per erythrocyte) 27 pg 25-34 Automated erythrocyte mean corpuscular h emoglobin concentration measurement (mass/volume) 33 g/dL 32-36 Automated erythrocyte distribution width ratio 13. 6 % 10.0- 14.5 Automated blood platelet count [...] 5-14 Serum or plasma urea nitrogen measurement (mass/volume ) 11 mg/dL 7-18 Serum or plasma creatinine measurement (mass/volume) 0.86 mg/dL 0.60-1.30 Serum or plasma urea nitrogen/creatinine mass ratio 13 NRG Serum or plasma creatinine measurement w ith calculation of estimated glomerular filtration rate > NRG Serum or plasma glucose measurement (mass/volume) 121 mg/dL 70-105 Serum or plasma calcium measurement (mass/volume) 9.0 mg/dL 8.5-10.1 Serum or plasma total bilirubin measurement (mass/volu me) 0.2 mg/dL 0.1-1.0 Serum or plasma alkaline phosphatase gabrielle surement (enzymatic activity/volume) 64 U/L 40-136 Serum or plasma aspartate aminotransfera se measurement (enzymatic activity/volume) 18 U/L 5-34 Serum or plasma alanine aminotransferase measurement (enzymatic activity/volume) 24 U/L 0-55 Serum or plasma protein measurement (mass/volume) 6.9 g/dL 6.4-8.2 Serum or plasma albumin measurement (mass/volume) 3.8 g/dL 3.2-4.5 CALCIUM CORRECTED 9.2 mg/dL 8.5-10.1 Complete blood count (CBC) with automate d white blood cell (WBC) differential - 08/24/18 05:09 Blood leukocytes automated count (number/volume) 8.2 10*3/uL 4.3-11.0 Blood erythrocytes automated count (number/volume) 4.91 10*6/uL 4.35-5.85 Venous blood hemoglobin measurement (mass/volume) 13.4 g/dL 11.5-16.0 Blood hematocrit (volume fraction) 40 % 35-52 Automated erythrocyte mean corpuscular volume 82 [ foz_us] 80-99 Automated erythrocyte mean corpuscular h emoglobin (mass per erythrocyte) 27 pg 25-34 Automated erythrocyte mean corpuscular h emoglobin concentration measurement (mass/volume) 33 g/dL 32-36 Automated erythrocyte distribution width ratio 14. 5 % 10.0- 14.5 Automated blood platelet count [...] 10*3 1.0-4.0 Blood monocytes automated count (number/volume) 0. 9 10*3 0.0-1.0 Automated eosinophil count 0.2 10*3/uL 0 .0-0.3 Automated blood basophil count (count/volume) 0.0 10*3/uL 0.0-0.1 Comprehensive metabolic panel - 08/24/18 05:09 Serum or plasma sodium measurement (moles/volume) 137 mmol/L 135-145 Serum or plasma potassium measurement (moles/volume) 3.6 mmol/L 3.6-5.0 Serum or plasma chloride measurement (moles/volume) 106 mmol/L 98-107 Carbon dioxide 20 mmol/L 21-32 Serum or plasma anion gap determination (moles/volume) 11 mmol/L 5-14 Serum or plasma urea nitrogen measurement (mass/volume ) 10 mg/dL 7-18 Serum or plasma creatinine measurement (mass/volume) 0.74 mg/dL 0.60-1.30 Serum or plasma urea nitrogen/creatinine mass ratio 14 NRG Serum or plasma creatinine measurement w ith calculation of estimated glomerular filtration rate > NRG Serum or plasma glucose measurement (mass/volume) 109 mg/dL 70-105 Serum or plasma calcium measurement (mass/volume) 8.5 mg/dL 8.5-10.1 Serum or plasma total bilirubin measurement (mass/volu me) 0.4 mg/dL 0.1-1.0 Serum or plasma alkaline phosphatase gabrielle surement (enzymatic activity/volume) 62 U/L 40-136 Serum or plasma aspartate aminotransfera se measurement (enzymatic activity/volume) 35 U/L 5-34 Serum or plasma alanine aminotransferase measurement (enzymatic activity/volume) 38 U/L 0-55 Serum or plasma protein measurement (mass/volume) 6.3 g/dL 6.4-8.2 Serum or plasma albumin measurement (mass/volume) 3.5 g/dL 3.2-4.5 CALCIUM CORRECTED 8.9 mg/dL 8.5-10.1 Complete blood count (CBC) with automate d white blood cell (WBC) differential - 01/01/19 18:15 Blood leukocytes automated count (number/volume) 12.1 10*3/uL 4.3-11.0 Blood erythrocytes automated count (number/volume) 6.00 10*6/uL 4.35-5.85 Venous blood hemoglobin measurement (mass/volume) 16.5 g/dL 11.5-16.0 Blood hematocrit (volume fraction) 50 % 35-52 Automated erythrocyte mean corpuscular volume 83 [ foz_us] 80-99 Automated erythrocyte mean corpuscular h emoglobin (mass per erythrocyte) 28 pg 25-34 Automated erythrocyte mean corpuscular h emoglobin concentration measurement (mass/volume) 33 g/dL 32-36 Automated erythrocyte distribution width ratio 14. 2 % 10.0- 14.5 Automated blood platelet count (count/volume) 265 10*3/uL 130-400 Automated blood platelet mean volume measurement 10.2 [foz_us] 7.4-10.4 Automated blood neutrophils/100 leukocytes 74 % 42-75 Automated blood lymphocytes/100 leukocytes 18 % 12-44 Blood monocytes/100 leukocytes 5 % 0-12 Automated blood eosinophils/100 leukocytes 2 % 0-10 Automated blood basophils/100 leukocytes 1 % 0-10 Blood neutrophils automated count (number/volume) 9.0 10*3 1.8-7.8 Blood lymphocytes automated count (number/volume) 2.2 10*3 1.0-4.0 Blood monocytes automated count (number/volume) 0. 6 10*3 0.0-1.0 Automated eosinophil count 0.2 10*3/uL 0 .0-0.3 Automated blood basophil count (count/volume) 0.1 10*3/uL 0.0-0.1 Comprehensive metabolic panel - 01/01/19 18:15 Serum or plasma sodium measurement (moles/volume) 139 mmol/L 135-145 Serum or plasma potassium measurement (moles/volume) 3.8 mmol/L 3.6-5.0 Serum or plasma chloride measurement (moles/volume) 100 mmol/L 98-107 Carbon dioxide 21 mmol/L 21-32 Serum or plasma anion gap determination (moles/volume) 18 mmol/L 5-14 Serum or plasma urea nitrogen measurement (mass/volume ) 8 mg/dL 7-18 Serum or plasma creatinine measurement (mass/volume) 0.72 mg/dL 0.60-1.30 Serum or plasma urea nitrogen/creatinine mass ratio 11 NRG Serum or plasma creatinine measurement w ith calculation of estimated glomerular filtration rate > NRG Serum or plasma glucose measurement (mass/volume) 136 mg/dL 70-105 Serum or plasma calcium measurement (mass/volume) 9.0 mg/dL 8.5-10.1 Serum or plasma total bilirubin measurement (mass/volu me) 0.2 mg/dL 0.1-1.0 Serum or plasma alkaline phosphatase gabrielle surement (enzymatic activity/volume) 74 U/L 40-136 Serum or plasma aspartate aminotransfera se measurement (enzymatic activity/volume) 18 U/L 5-34 Serum or plasma alanine aminotransferase measurement (enzymatic activity/volume) 28 U/L 0-55 Serum or plasma protein measurement (mass/volume) 7.7 g/dL 6.4-8.2 Serum or plasma albumin measurement (mass/volume) 4.3 g/dL 3.2-4.5 CALCIUM CORRECTED 8.8 mg/dL 8.5-10.1 Erythrocyte sedimentation rate by maxi gren method - 01/01/19 18:15 Erythrocyte sedimentation rate by westergren method 12 mm 0- 20 Serum or plasma C reactive protein measu rement (mass/volume) - 01/01/19 18:15 Serum or plasma C reactive protein measurement (mass/v olume) 1.45 mg/dL 0.00-0.50 TOY - 05/21/19 13:08 TOY SCREEN, IFA NEGATIVE NEGATIVE DHEA - 05/21/19 13:08 DHEA SULFATE 130 mcg/dL 23-266 TESTOSTERONE, TOTAL, LC/MS/MS - 05/21/19 13:08 TESTOSTERONE, TOTAL, LC/MS/MS 40 ng/dL 2-45 Complete blood count (CBC) with automate d white blood cell (WBC) differential - 07/11/19 20:40 Blood leukocytes automated count (number/volume) 11.7 10*3/uL 4.3-11.0 Blood erythrocytes automated count (number/volume) 5.69 10*6/uL 4.35-5.85 Venous blood hemoglobin measurement (mass/volume) 15.6 g/dL 11.5-16.0 Blood hematocrit (volume fraction) 47 % 35-52 Automated erythrocyte mean corpuscular volume 83 [ foz_us] 80-99 Automated erythrocyte mean corpuscular h emoglobin (mass per erythrocyte) 27 pg 25-34 Automated erythrocyte mean corpuscular h emoglobin concentration measurement (mass/volume) 33 g/dL 32-36 Automated erythrocyte distribution width ratio 14. 6 % 10.0- 14.5 Automated blood platelet count (count/volume) 323 10*3/uL 130-400 Automated blood platelet mean volume measurement 10.0 [foz_us] 7.4-10.4 Automated blood neutrophils/100 leukocytes 60 % 42-75 Automated blood lymphocytes/100 leukocytes 31 % 12-44 Blood monocytes/100 leukocytes 7 % 0-12 Automated blood eosinophils/100 leukocytes 2 % 0-10 Automated blood basophils/100 leukocytes 0 % 0-10 Blood neutrophils automated count (number/volume) 7.0 10*3 1.8-7.8 Blood lymphocytes automated count (number/volume) 3.6 10*3 1.0-4.0 Blood monocytes automated count (number/volume) 0. 8 10*3 0.0-1.0 Automated eosinophil count 0.3 10*3/uL 0 .0-0.3 Automated blood basophil count (count/volume) 0.1 10*3/uL 0.0-0.1 Comprehensive metabolic panel - 07/11/19 20:40 Serum or plasma sodium measurement (moles/volume) 141 mmol/L 135-145 Serum or plasma potassium measurement (moles/volume) 3.6 mmol/L 3.6-5.0 Serum or plasma chloride measurement (moles/volume) 103 mmol/L 98-107 Carbon dioxide 25 mmol/L 21-32 Serum or plasma anion gap determination (moles/volume) 13 mmol/L 5-14 Serum or plasma urea nitrogen measurement (mass/volume ) 11 mg/dL 7-18 Serum or plasma creatinine measurement (mass/volume) 0.81 mg/dL 0.60-1.30 Serum or plasma urea nitrogen/creatinine mass ratio 14 NRG Serum or plasma creatinine measurement w ith calculation of estimated glomerular filtration rate > NRG Serum or plasma glucose measurement (mass/volume) 98 mg/dL 70-105 Serum or plasma calcium measurement (mass/volume) 9.4 mg/dL 8.5-10.1 Serum or plasma total bilirubin measurement (mass/volu me) 0.2 mg/dL 0.1-1.0 Serum or plasma alkaline phosphatase gabrielle surement (enzymatic activity/volume) 68 U/L 40-136 Serum or plasma aspartate aminotransfera se measurement (enzymatic activity/volume) 17 U/L 5-34 Serum or plasma alanine aminotransferase measurement (enzymatic activity/volume) 22 U/L 0-55 Serum or plasma protein measurement (mass/volume) 7.2 g/dL 6.4-8.2 Serum or plasma albumin measurement (mass/volume) 3.9 g/dL 3.2-4.5 CALCIUM CORRECTED 9.5 mg/dL 8.5-10.1 Lipase - 07/11/19 20:40 Lipase 36 U/L 8-78 Comprehensive metabolic panel - 07/12/19 05:07 Serum or plasma sodium measurement (moles/volume) 138 mmol/L 135-145 Serum or plasma potassium measurement (moles/volume) 3.6 mmol/L 3.6-5.0 Serum or plasma chloride measurement (moles/volume) 110 mmol/L 98-107 Carbon dioxide 17 mmol/L 21-32 Serum or plasma anion gap determination (moles/volume) 11 mmol/L 5-14 Serum or plasma urea nitrogen measurement (mass/volume ) 9 mg/dL 7-18 Serum or plasma creatinine measurement (mass/volume) 0.69 mg/dL 0.60-1.30 Serum or plasma urea nitrogen/creatinine mass ratio 13 NRG Serum or plasma creatinine measurement w ith calculation of estimated glomerular filtration rate > NRG Serum or plasma glucose measurement (mass/volume) 88 mg/dL 70-105 Serum or plasma calcium measurement (mass/volume) 8.1 mg/dL 8.5-10.1 Serum or plasma total bilirubin measurement (mass/volu me) 0.3 mg/dL 0.1-1.0 Serum or plasma alkaline phosphatase gabrielle surement (enzymatic activity/volume) 56 U/L 40-136 Serum or plasma aspartate aminotransfera se measurement (enzymatic activity/volume) 63 U/L 5-34 Serum or plasma alanine aminotransferase measurement (enzymatic activity/volume) 48 U/L 0-55 Serum or plasma protein measurement (mass/volume) 6.0 g/dL 6.4-8.2 Serum or plasma albumin measurement (mass/volume) 3.4 g/dL 3.2-4.5 CALCIUM CORRECTED 8.6 mg/dL 8.5-10.1 Complete blood count (CBC) with automate d white blood cell (WBC) differential - 07/12/19 05:07 Blood leukocytes automated count (number/volume) 8.7 10*3/uL 4.3-11.0 Blood erythrocytes automated count (number/volume) 5.06 10*6/uL 4.35-5.85 Venous blood hemoglobin measurement (mass/volume) 13.6 g/dL 11.5-16.0 Blood hematocrit (volume fraction) 42 % 35-52 Automated erythrocyte mean corpuscular volume 82 [ foz_us] 80-99 Automated erythrocyte mean corpuscular h emoglobin (mass per erythrocyte) 27 pg 25-34 Automated erythrocyte mean corpuscular h emoglobin concentration measurement (mass/volume) 33 g/dL 32-36 Automated erythrocyte distribution width ratio 14. 9 % 10.0- 14.5 Automated blood platelet count (count/volume) 264 10*3/uL 130-400 Automated blood platelet mean volume measurement 9.7 [foz_us] 7.4-10.4 Automated blood neutrophils/100 leukocytes 60 % 42-75 Automated blood lymphocytes/100 leukocytes 27 % 12-44 Blood monocytes/100 leukocytes 10 % 0-12 Automated blood eosinophils/100 leukocytes 3 % 0-10 Automated blood basophils/100 leukocytes 0 % 0-10 Blood neutrophils automated count (number/volume) 5.2 10*3 1.8-7.8 Blood lymphocytes automated count (number/volume) 2.3 10*3 1.0-4.0 Blood monocytes automated count (number/volume) 0. 9 10*3 0.0-1.0 Automated eosinophil count 0.3 10*3/uL 0 .0-0.3 Automated blood basophil count (count/volume) 0.0 10*3/uL 0.0-0.1 Encounters ACCT No. Visit Date/Time Discharge Status Pt. Type Provider Facility Loc./Unit Complaint [id number] 08/15/2019 13:15:00 08/15/2019 23:59: 59 [facility] Outpatient LOPEZ SHULTZ [facility] [id number] 05/21/2019 11:00:00 Document Registration [id number] 03/29/2018 12:00:00 Document Registration [id number] 03/15/2018 12:20:00 Document Registration [id number] 12/17/2017 15:00:00 Document Registration [id number] 05/21/2017 10:40:00 Document Registration [id number] 03/02/2017 08:00:00 Document Registration [id number] 02/26/2017 14:00:00 Document Registration [id number] 08/16/2019 19:38:00 20:20:00 DIS Emergency KINGS MORIN MD [facility] ER FS NAUSEA/VOMITTING [id number] 07/11/2019 23:42:00 14:09:00 DIS Inpatient REYNALDO MCCORMICK, MINE Townsend [facility] 4TH SIGMOID DIVERTICULITIS [id number] 06/21/2019 11:52:00 12:48:00 DIS Emergency MINE PARKER MD [facility] ER FS BACK PAIN [id number] 03/09/2019 04:51:00 05:13:00 DIS Emergency ROSSY KENNY DO [facility] ER FS NAUSEA; HIVES; ITCHY TH ROAT [id number] 02/12/2019 04:51:00 06:32:00 DIS Emergency OLY HART DO [facility] ER FS BACK PAIN [id number] 01/01/2019 18:03:00 20:14:00 DIS Emergency ROSSY KENNY DO [facility] ER FS BLOODY STOOL; VOMITING [id number] 10/15/2018 07:26:00 09:10:00 DIS Outpatient MACARIO SINGH DO [facility] ENDO LUQ ABD PAIN/HX DIVERTI CULITIS [id number] 10/11/2018 11:00:00 12:39:00 DIS Outpatient MACARIO SINGH DO [facility] PREOP COLONOSCOPY [id number] 08/24/2018 00:30:00 13:30:00 DIS Inpatient RACHEL MOREIRA DO, [facility] 4TH DIVERTICULITIS [id number] 08/17/2018 07:33:00 09:43:00 DIS Emergency ETHAN HUANG MD [facility] ER FS LT SIDE PAIN [id number] 12/18/2017 09:19:00 018 23:59:59 CLS Outpatient BRYSON SHEPHERD APRN [facility] RAD SCREENING FOR B REAST CANCER [id number] 11/27/2017 06:43:00 018 09:10:00 DIS Outpatient SINGH MACARIO HANDLEY [facility] ENDO HX DIVERTICULTITIS/ HAT BRUSHER MACHINE HNS'S/GERD [id number] 11/20/2017 05:37:00 018 09:54:00 DIS Outpatient MACARIO SINGH DO [facility] PREOP COLONOSCOPY/EGD [id number] 11/09/2017 20:00:00 018 23:59:59 CLS Preadmit BRYSON SHEPHERD APRN [facility] SLEEP HYPERSOMNIA, UNSPECIFIE D G47.10 [id number] 09/17/2013 06:00:00 014 09:30:00 DIS Outpatient LEONARD SOSA MD [facility] SDC MENORRHAGIA;CHR ONIC PELVIC PAIN;ENDOMETRIOSIS [id number] 09/15/2013 09:54:00 014 23:59:59 CLS Outpatient LEONARD SOSA MD [facility] PREOP MENORRHAGIA;CHR ONIC PELVIC PAIN;ENDOMETRIOSIS
--- OUTSIDE RECORDS SUMMARY | 2019-08-20 04:15 | XMS REPORT | Continuity of Care Document ---
Author Organization Unknown Address Unknown Phone Unavailable Allergies Active Description Code Type Severity Reaction Onset Reported/Identified Relationship to Patient Clinical Status Yes TAPE TAPE Unknown RASH 09/15/2013 Yes buspirone [id number] Drug Allergy Moderate SEVERE ANXIETY 11/27/2017 Yes bismuth subsalicylate [id number] Drug Allergy Unknown NAUSEA 11/27/2017 Yes latex [id number] Drug Allergy Unknown RASH 11/27/2017 Yes meperidine [id number] Drug Allerg y Unknown RASH 11/27/2017 Yes promethazine [id number] Drug Allergy Unknown DIFFICULTY SANDI 11/27/2017 Yes aripiprazole [id number] Drug Allergy Unknown Heart racing 08/24/2018 Medications [...] 11/27/2017 MACARIO SINGH DO Ot 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 84 BONING ROOM WORKER (CURRENT) USE OF ORAL HYPOGLYC 11/27/2017 MACARIO SINGH DO Ot Z79.899 OTHER HALF-WAY (CURRENT) DRUG THERAPY 11/28/2017 MACARIO SINGH DO [...] 11/28/2017 MACARIO SINGH DO Ot Z79. 52 BONING ROOM WORKER (CURRENT) USE OF SYSTEMIC STER 11/28/2017 MACARIO SINGH DO Ot Z79. 84 HALF-WAY (CURRENT) USE OF ORAL HYPOGLYC 11/28/2017 MACARIO SINGH DO Ot Z79.899 OTHER BONING ROOM WORKER (CURRENT) DRUG THERAPY 12/19/2017 BRYSON SHEPHERD APRN [...] 08/17/2018 ETHAN HUANG MD Ot Z79. 51 HALF-WAY (CURRENT) USE OF INHALED STERO 08/17/2018 ETHAN HUANG MD Ot Z79. 52 BONING ROOM WORKER (CURRENT) USE OF SYSTEMIC STER 08/17/2018 ETHAN [...] 08/20/2018 ETHAN HUANG MD Ot Z79. 51 BONING ROOM WORKER (CURRENT) USE OF INHALED STERO 08/20/2018 ETHAN HUANG MD Ot Z79. 52 HALF-WAY (CURRENT) USE OF SYSTEMIC STER 08/20/2018 ETHAN [...] 10/15/2018 MACARIO SINGH DO Ot Z79. 84 HALF-WAY (CURRENT) USE OF ORAL HYPOGLYC 10/15/2018 MACARIO SINGH DO Ot Z79.899 OTHER HALF-WAY (CURRENT) DRUG THERAPY 10/18/2018 MACARIO SINGH DO [...] 10/18/2018 MACARIO SINGH DO Ot Z79. 84 BONING ROOM WORKER (CURRENT) USE OF ORAL HYPOGLYC 10/18/2018 MACARIO SINGH DO Ot Z79.899 OTHER BONING ROOM WORKER (CURRENT) DRUG THERAPY 01/01/2019 KENNY DO, ROSSY [...] KENNY DO, ROSSY L Ot Z79.5 1 HALF-WAY (CURRENT) USE OF INHALED STERO 01/01/2019 EFRAÍN HANDLEY ROSSY L Ot Z79.8 4 BONING ROOM WORKER (CURRENT) USE OF ORAL HYPOGLYC 01/01/2019 KENNY [...] KENNY DO, ROSSY L Ot Z79.5 1 HALF-WAY (CURRENT) USE OF INHALED STERO 01/17/2019 KENNY DO, ROSSY L Ot Z79.8 4 BONING ROOM WORKER (CURRENT) USE OF ORAL HYPOGLYC 01/17/2019 KENNY [...] ADULT 02/12/2019 OLY HART DO, Ot Z79.84 BONING ROOM WORKER (CURRENT) USE OF ORAL HYPOGLYC 02/12/2019 OLY [...] ADULT 02/14/2019 OLY HART DO, Ot Z79.84 HALF-WAY (CURRENT) USE OF ORAL HYPOGLYC 02/14/2019 OLY [...] Ot G47.30 SLEEP APNEA, UNSPECIFIED 02/14/2019 OLY AHRT DO, Ot J45.909 UNSPECIFIED ASTHMA, UNCOMPLICATED 02/14/2019 [...] ADULT 02/14/2019 OLY HART DO Ot Z79.84 BONING ROOM WORKER (CURRENT) USE OF ORAL HYPOGLYC 02/14/2019 OLY [...] F31 .9 BIPOLAR DISORDER, UNSPECIFIED 02/19/2019 OLY HART DO, Ot F41 .9 ANXIETY [...] ADULT 02/19/2019 OLY HART DO, Ot Z79.84 HALF-WAY (CURRENT) USE OF ORAL HYPOGLYC 02/19/2019 OLY [...] KENNY DO, ROSSY L Ot Z79.5 1 HALF-WAY (CURRENT) USE OF INHALED STERO 03/09/2019 KENNY DO, ROSSY L Ot Z79.5 2 BONING ROOM WORKER (CURRENT) USE OF SYSTEMIC STER 03/09/2019 KENNY DO, ROSSY L Ot Z79.8 4 BONING ROOM WORKER (CURRENT) USE OF ORAL HYPOGLYC 03/09/2019 KENNY [...] KENNY DO, ROSSY L Ot Z79.5 1 HALF-WAY (CURRENT) USE OF INHALED STERO 03/11/2019 KENNY DO, ROSSY L Ot Z79.5 2 HALF-WAY (CURRENT) USE OF SYSTEMIC STER 03/11/2019 KENNY DO, ROSSY L Ot Z79.8 4 BONING ROOM WORKER (CURRENT) USE OF ORAL HYPOGLYC 03/11/2019 KENNY DO, ROSSY L Ot Z87.1 9 PERSONAL HISTORY OF OTHER DISEASES OF TH 03/11/2019 KENNY DO, RSOSY L Ot Z87.4 42 PERSONAL HISTORY OF [...] M54. 9 DORSALGIA, UNSPECIFIED 06/21/2019 KEITH MCCORMICK, IMNE Camilo Ot Z79. 51 HALF-WAY (CURRENT) USE OF INHALED STERO 06/21/2019 KEITH MCCORMICK, MINE Camilo Ot Z79. 84 HALF-WAY (CURRENT) USE OF ORAL HYPOGLYC 06/21/2019 KEITH [...] KEITH MCCORMICK, MINE Camilo Ot Z79. 51 BONING ROOM WORKER (CURRENT) USE OF INHALED STERO 06/28/2019 KEITH MCCORMICK, MINE Camilo Ot Z79. 84 HALF-WAY (CURRENT) USE OF ORAL HYPOGLYC 06/28/2019 KEITH [...] 07/13/2019 MINE JACOBS MD Ot Z79. 84 BONING ROOM WORKER (CURRENT) USE OF ORAL HYPOGLYC 07/13/2019 MINE [...] 7-25 CREATININE 0.70 mg/dL 0.50-1.10 eGFR NON-AFR. EMIRATI 112 mL/min/1.73m2 > OR = 60 eGFR [...] mg/dL 0.1-1.0 Serum or plasma alkaline phosphatase agbrielle surement (enzymatic activity/volume) 62 U/L 40-136 Serum [...] Status Pt. Type Provider Facility Loc./Unit Complaint [id number] 08/15/2019 13:15:00 08/15/2019 23:59: 59 [facility] Outpatient LOPEZ SHULTZ [facility] [id number] 05/21/2019 11:00:00 Document Registration [id number] 03/29/2018 12:00:00 Document Registration [id number] 03/15/2018 12:20:00 Document Registration [id number] 12/17/2017 15:00:00 Document Registration [id number] 05/21/2017 10:40:00 Document Registration [id number] 03/02/2017 08:00:00 Document Registration [id number] 02/26/2017 14:00:00 Document Registration [id number] 08/16/2019 19:38:00 20:20:00 DIS Emergency KINGS MORIN MD Via [facility] ER FS NAUSEA/VOMITTING [id number] 07/11/2019 23:42:00 14:09:00 DIS Inpatient REYNALDO MCCORMICK, MINE Townsend Via [facility] 4TH SIGMOID DIVERTICULITIS [id number] 06/21/2019 11:52:00 12:48:00 DIS Emergency MINE PARKER MD Via [facility] ER FS BACK PAIN [id number] 03/09/2019 04:51:00 05:13:00 DIS Emergency ROSSY KENNY DO Via [facility] ER FS NAUSEA; HIVES; ITCHY TH ROAT [id number] 02/12/2019 04:51:00 06:32:00 DIS Emergency OLY HART DO Via [facility] ER FS BACK PAIN [id number] 01/01/2019 18:03:00 20:14:00 DIS Emergency ROSSY KENNY DO Via [facility] ER FS BLOODY STOOL; VOMITING [id number] 10/15/2018 07:26:00 09:10:00 DIS Outpatient MACARIO SINGH DO Via [facility] ENDO LUQ ABD PAIN/HX DIVERTI CULITIS [id number] 10/11/2018 11:00:00 12:39:00 DIS Outpatient MACARIO SINGH DO Via [facility] PREOP COLONOSCOPY [id number] 08/24/2018 00:30:00 13:30:00 DIS Inpatient RACHEL MOREIRA DO, V ia [facility] 4TH DIVERTICULITIS [id number] 08/17/2018 07:33:00 09:43:00 DIS Emergency ETHAN HUANG MD Via [facility] ER FS LT SIDE PAIN [id number] 12/18/2017 09:19:00 018 23:59:59 CLS Outpatient BRYSON SHEPHERD APRN Via [facility] RAD SCREENING FOR B REAST CANCER [id number] 11/27/2017 06:43:00 018 09:10:00 DIS Outpatient SINGH MACARIO HANDLEY Via [facility] ENDO HX DIVERTICULTITIS/ 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 ORGANIZER HNS'S/GERD [id number] 11/20/2017 05:37:00 018 09:54:00 DIS Outpatient MACARIO SINGH DO Via [facility] PREOP COLONOSCOPY/EGD [id number] 11/09/2017 20:00:00 018 23:59:59 CLS Preadmit BRYSON SHEPHERD APRN Via [facility] SLEEP HYPERSOMNIA, UNSPECIFIE D G47.10 [id number] 09/17/2013 06:00:00 014 09:30:00 DIS Outpatient LEONARD SOSA MD Via [facility] SDC MENORRHAGIA;CHR ONIC PELVIC PAIN;ENDOMETRIOSIS [id number] 09/15/2013 09:54:00 014 23:59:59 CLS Outpatient LEONARD SOSA MD Via [facility] PREOP MENORRHAGIA;CHR ONIC PELVIC PAIN;ENDOMETRIOSIS
== END 2019-08-16 20:20 | disposition home or self-care (01) ==
LOC: EDUNIT# 19:36 → ER FS 19:38 → UNDOADMOB 19:42 → 4TH 19:42 → ER FS 20:20
DX: K02.9 Dental caries, unspecified (principal); J45.909 Unspecified asthma, uncomplicated; E78.00 Pure hypercholesterolemia, unspecified; F41.9 Anxiety disorder, unspecified; F31.9 Bipolar disorder, unspecified; K21.9 Gastro-esophageal reflux disease without esophagitis; E66.01 Morbid (severe) obesity due to excess calories; Z88.5 Allergy status to narcotic agent; Z91.040 Latex allergy status; Z88.8 Allergy status to other drugs, medicaments and biological substances; Z79.51 Long term (current) use of inhaled steroids; Z87.891 Personal history of nicotine dependence
CPT/HCPCS: 99284

== ENCOUNTER 2019-10-27 00:11 | Emergency (ER) | payer MEDICAID ==
[~2019-10-27] VITALS: Ht 162.6 cm; Wt 118.9 kg
[~2019-10-27 00:11] MED LIST changes: +HYDR-4226 PO
[2019-10-27 00:20] VITALS: BP 123/73
--- OUTSIDE RECORDS SUMMARY | 2019-10-27 00:20 | XMS REPORT | Continuity of Care Document ---
Author Organization Unknown Address Unknown Phone Unavailable Allergies Active Description Code Type Severity Reaction Onset Reported/Identified Relationship to Patient Clinical Status Yes TAPE TAPE Unknown RASH 09/15/2013 Yes buspirone [id number] Drug Allergy Moderate SEVERE ANXIETY 11/27/2017 Yes bismuth subsalicylate [id number] Drug Allergy Unknown NAUSEA 11/27/2017 Yes latex [id number] Drug Allergy Unknown RASH 11/27/2017 Yes meperidine [id number] Drug Allerg y Unknown RASH 11/27/2017 Yes promethazine [id number] Drug Allergy Unknown DIFFICULTY SANDI 11/27/2017 Yes aripiprazole [id number] Drug Allergy Unknown Heart racing 08/24/2018 Medications [...] 70 GASTRITIS, UNSPECIFIED, WITHOUT BLEEDING 11/27/2017 MACARIO ISNGH DO Ot 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 84 INDUSTRIAL SERVICE TECHNICIAN (CURRENT) USE OF ORAL HYPOGLYC 11/27/2017 MACARIO SINGH DO Ot Z79.899 OTHER [facility] (CURRENT) DRUG THERAPY 11/28/2017 MACARIO SINGH DO [...] 11/28/2017 MACARIO SINGH DO Ot Z79. 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 84 [facility] (CURRENT) USE OF ORAL HYPOGLYC 11/28/2017 MACARIO SINGH DO Ot Z79.899 OTHER INDUSTRIAL SERVICE TECHNICIAN (CURRENT) DRUG THERAPY 12/19/2017 BRYSON SHEPHERD APRN Ot Z12.31 ENCNTR SCREEN MAMMOGRAM FOR MALIGNANT NE 01/04/2018 BRYSON SHEPHERD APRN Ot Z12.31 ENCNTR SCREEN MAMMOGRAM FOR MALIGNANT NE 08/17/2018 ETHAN HUANG MD Ot E78. 00 PURE HYPERCHOLESTEROLEMIA, UNSPECIFIED 08/17/2018 REINA MCCORMICK, ETHNA Olvera Ot F31. 9 BIPOLAR DISORDER, UNSPECIFIED [...] 08/17/2018 ETHAN HUANG MD Ot Z79. 51 [facility] (CURRENT) USE OF INHALED STERO 08/17/2018 ETHAN HUANG MD Ot Z79. 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 51 INDUSTRIAL SERVICE TECHNICIAN (CURRENT) USE OF INHALED STERO 08/20/2018 ETHAN HUANG MD Ot Z79. 52 [facility] (CURRENT) USE OF SYSTEMIC STER 08/20/2018 ETHAN [...] Z01.818 ENCOUNTER FOR OTHER PREPROCEDURAL EXAMIN 10/15/2018 AMCARIO SINGH DO Ot E66. 01 MORBID (SEVERE) [...] 10/15/2018 MACARIO SINGH DO Ot Z79. 84 [facility] (CURRENT) USE OF ORAL HYPOGLYC 10/15/2018 MACARIO SINGH DO Ot Z79.899 OTHER [facility]CI (CURRENT) DRUG THERAPY 10/18/2018 MACARIO SINGH DO [...] 10/18/2018 MACARIO SINGH DO Ot Z79. 84 INDUSTRIAL SERVICE TECHNICIAN (CURRENT) USE OF ORAL HYPOGLYC 10/18/2018 MACARIO SINGH DO Ot Z79.899 OTHER INDUSTRIAL SERVICE TECHNICIAN (CURRENT) DRUG THERAPY 01/01/2019 KENNY DO, ROSSY [...] KENNY DO, ROSSY L Ot Z79.5 1 [facility] (CURRENT) USE OF INHALED STERO 01/01/2019 EFRAÍN HANDLEY ROSSY L Ot Z79.8 4 INDUSTRIAL SERVICE TECHNICIAN (CURRENT) USE OF ORAL HYPOGLYC 01/01/2019 KENNY [...] KENNY DO, ROSSY L Ot Z79.5 1 [facility] (CURRENT) USE OF INHALED STERO 01/17/2019 KENNY DO, ROSSY L Ot Z79.8 4 INDUSTRIAL SERVICE TECHNICIAN (CURRENT) USE OF ORAL HYPOGLYC 01/17/2019 KENNY [...] ADULT 02/12/2019 OLY HART DO, Ot Z79.84 INDUSTRIAL SERVICE TECHNICIAN (CURRENT) USE OF ORAL HYPOGLYC 02/12/2019 OLY [...] Ot E78.00 PURE HYPERCHOLESTEROLEMIA, UNSPECIFIED 02/14/2019 OLY HRAT DO, Ot F31 .9 BIPOLAR DISORDER, UNSPECIFIED [...] ADULT 02/14/2019 OLY HART DO, Ot Z79.84 [facility]CI (CURRENT) USE OF ORAL HYPOGLYC 02/14/2019 OLY [...] ADULT 02/14/2019 OLY HART DO Ot Z79.84 INDUSTRIAL SERVICE TECHNICIAN (CURRENT) USE OF ORAL HYPOGLYC 02/14/2019 OLY [...] ADULT 02/19/2019 OLY HART DO, Ot Z79.84 [facility] (CURRENT) USE OF ORAL HYPOGLYC 02/19/2019 OLY [...] KENNY DO, ROSSY L Ot Z79.5 1 [facility] (CURRENT) USE OF INHALED STERO 03/09/2019 KENNY DO, ROSSY L Ot Z79.5 2 INDUSTRIAL SERVICE TECHNICIAN (CURRENT) USE OF SYSTEMIC STER 03/09/2019 KENNY DO, ROSSY L Ot Z79.8 4 INDUSTRIAL SERVICE TECHNICIAN (CURRENT) USE OF ORAL HYPOGLYC 03/09/2019 KENNY [...] KENNY DO, ROSSY L Ot Z79.5 1 [facility] (CURRENT) USE OF INHALED STERO 03/11/2019 KENNY DO, ROSSY L Ot Z79.5 2 [facility] (CURRENT) USE OF SYSTEMIC STER 03/11/2019 KENNY DO, ROSSY L Ot Z79.8 4 INDUSTRIAL SERVICE TECHNICIAN (CURRENT) USE OF ORAL HYPOGLYC 03/11/2019 KENNY [...] KEITH MCCORMICK, MINE Camilo Ot Z79. 51 [facility] (CURRENT) USE OF INHALED STERO 06/21/2019 KEITH MCCORMICK, MINE Camilo Ot Z79. 84 [facility] (CURRENT) USE OF ORAL HYPOGLYC 06/21/2019 KEITH [...] Camilo Ot M54. 9 DORSALGIA, UNSPECIFIED 06/28/2019 KETIH MCCORMICK, MINE Camilo Ot Z79. 51 INDUSTRIAL SERVICE TECHNICIAN (CURRENT) USE OF INHALED STERO 06/28/2019 KEITH MCCORMICK, MINE Camilo Ot Z79. 84 [facility] (CURRENT) USE OF ORAL HYPOGLYC 06/28/2019 KEITH [...] J45.909 UNSPECIFIED ASTHMA, UNCOMPLICATED 07/13/2019 MINE JACOBS MD Ot K21. 9 GASTRO-ESOPHAGEAL REFLUX DISEASE WITHOUT 07/13/2019 MINE JACOBS MD, Ot K57. 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 42 BODY MASS INDEX (BMI) 45.0-49.9, ADULT 07/13/2019 MINE JACOBS MD Ot Z79. 84 INDUSTRIAL SERVICE TECHNICIAN (CURRENT) USE OF ORAL HYPOGLYC 07/13/2019 MINE JACOBS MD, Ot Z90. 49 ACQUIRED ABSENCE OF OTHER SPECIFIED PART 07/13/2019 MINE JACOBS MD Ot Z90.710 ACQUIRED ABSENCE OF BOTH CERVIX AND UTER 08/16/2019 KINGS MORIN MD Ot E66. 01 MORBID (SEVERE) OBESITY DUE TO EXCESS CA 08/16/2019 KINGS MORIN MD Ot E78. 00 PURE HYPERCHOLESTEROLEMIA, UNSPECIFIED 08/16/2019 KINGS MORIN MD Ot F31. 9 BIPOLAR DISORDER, UNSPECIFIED 08/16/2019 KINGS MORIN MD, Ot F41. 9 ANXIETY DISORDER, UNSPECIFIED 08/16/2019 KINGS MORIN MD, Ot J45.909 UNSPECIFIED ASTHMA, UNCOMPLICATED 08/16/2019 KINGS MORIN MD Ot K02. 9 DENTAL CARIES, UNSPECIFIED 08/16/2019 KINGS MORIN MD Ot K08. 89 OTHER SPECIFIED DISORDERS OF TEETH AND S 08/16/2019 KINGS MORIN MD, Ot K21. 9 GASTRO-ESOPHAGEAL REFLUX DISEASE WITHOUT 08/16/2019 KINGS MORIN MD Ot Z79. 51 [facility] (CURRENT) USE OF INHALED STERO 08/16/2019 KINGS MORIN MD Ot Z87.891 PERSONAL HISTORY OF NICOTINE DEPENDENCE 08/16/2019 KINGS MORIN MD Ot Z88. 5 ALLERGY STATUS TO NARCOTIC AGENT STATUS 08/16/2019 KINGS MORIN MD Ot Z88. 8 ALLERGY STATUS TO OTH DRUG/MEDS/BIOL SUB 08/16/2019 KINGS MORIN MD Ot Z91.040 LATEX ALLERGY STATUS 08/16/2019 BRYSON SHEPHERD APRN Ot Z12.31 ENCNTR SCREEN [...] 7-25 CREATININE 0.70 mg/dL 0.50-1.10 eGFR NON-AFR. ANDORRAN 112 mL/min/1.73m2 > OR = 60 eGFR [...] blood basophil count (count/volume) 0.0 10*3/uL 0.0-0.1 COVID-19 ([facility]) - 09/15/19 14:06 PATIENT SYMPTOMATIC? NOT GIVEN NRG SOURCE: NOT GIVEN NRG OVERALL RESULT: NOT DETECTED NRG SARS-CoV-2 RNA: NEGATIVE NRG MUÑOZ-SARS RNA: NEGATIVE NRG Encounters ACCT No. Visit Date/Time Discharge Status Pt. Type Provider Facility Loc./Unit Complaint [id number] 08/15/2019 13:15:00 08/15/2019 23:59: 59 [facility] [id number] 09/15/2019 13:30:00 Document Registration [id number] 05/21/2019 11:00:00 Document Registration [id number] 03/29/2018 12:00:00 Document Registration [id number] 03/15/2018 12:20:00 Document Registration [id number] 12/17/2017 15:00:00 Document Registration [id number] 05/21/2017 10:40:00 Document Registration [id number] 03/02/2017 08:00:00 Document Registration [id number] 02/26/2017 14:00:00 Document Registration [id number] 08/16/2019 19:38:00 20:20:00 DIS Emergency MIKEL MCCORMICK, KINGS Silva [facility] ER FS NAUSEA/VOMITTING [id number] 07/11/2019 23:42:00 14:09:00 DIS Inpatient REYNALDO MCCORMICK, MINE Townsend Via [facility] 4TH SIGMOID DIVERTICULITIS [id number] 06/21/2019 11:52:00 020 12:48:00 DIS Emergency KIETH MCCORMICK, MINE Camilo [facility] ER FS BACK PAIN [id number] 03/09/2019 04:51:00 05:13:00 DIS Emergency EFRAÍN HANDLEY ROSSY L [facility] ER FS NAUSEA; HIVES; ITCHY TH ROAT [id number] 02/12/2019 04:51:00 06:32:00 DIS Emergency OLY HART DO Via [facility] ER FS BACK PAIN [id number] 01/01/2019 18:03:00 20:14:00 DIS Emergency ROSSY KENNY DO Via [facility] ER FS BLOODY STOOL; VOMITING [id number] 10/15/2018 07:26:00 09:10:00 DIS Outpatient SINGH MACARIO HANDLEY [facility] ENDO LUQ ABD PAIN/HX DIVERTI CULITIS [id number] 10/11/2018 11:00:00 12:39:00 DIS Outpatient MACARIO SINGH DO [facility] PREOP COLONOSCOPY [id number] 08/24/2018 00:30:00 13:30:00 DIS Inpatient RACHEL MOREIRA DO, V ia [facility] 4TH DIVERTICULITIS [id number] 08/17/2018 07:33:00 09:43:00 DIS Emergency REINA MCCORMICK, ETHAN Olvera [facility] ER FS LT SIDE PAIN [id number] 12/18/2017 09:19:00 23:59:59 CLS Outpatient BRYSON SHEPHERD APRN Via [facility] RAD SCREENING FOR B REAST CANCER [id number] 11/27/2017 06:43:00 09:10:00 DIS Outpatient SINGH MACARIO HANDLEY [facility] ENDO HX DIVERTICULTITIS/ 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/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 [id number] 11/20/2017 05:37:00 09:54:00 DIS Outpatient MACARIO SINGH DO [facility] PREOP COLONOSCOPY/EGD [id number] 11/09/2017 20:00:00 23:59:59 CLS Preadmit BRYSON SHEPHERD APRN Via [facility] SLEEP HYPERSOMNIA, UNSPECIFIE D G47.10 [id number] 09/17/2013 06:00:00 09:30:00 DIS Outpatient LEONARD SOSA MD Via [facility] SDC MENORRHAGIA;CHR ONIC PELVIC PAIN;ENDOMETRIOSIS [id number] 09/15/2013 09:54:00 23:59:59 CLS Outpatient LEONARD SOSA MD [facility] PREOP MENORRHAGIA;CHR ONIC PELVIC PAIN;ENDOMETRIOSIS
--- NOTE | 2019-10-27 00:34 | ED Back Pain ---
General Chief Complaint: Back Problems Stated Complaint: LOWER BACK PAIN Nursing Triage Note: PT AMBULATE TO ROOM FS02 WITH C/O BACK PAIN STARTING YESTERDAY. PT REPORTS HX OF BACK PROBLEMS. PT STATES SHE FELL OFF A CURB APPROX "12 INCHES HIGH" AND LANDED ON HER BUTTOCKS. PT REPORTS TAKING IBUPROFEN, FLEXERIL, TRAMADOL WITH NO RELIEF. Nursing Sepsis Screen: No Definite Risk Source of Information: Patient, Old Records, RN/MD Exam Limitations: No Limitations History of Present Illness Date Seen by Provider: October 27, 2019 Time Seen by Provider: 12:15 Initial Comments This patient is a 34-year-old female that presents to the emergency department complaining of back pain. His long history of chronic back pain has been to the emerge department for same. At home patient does take Flexeril tramadol and ibuprofen. She states she has plenty of medication. Patient states that SHE'S taken today has been ibuprofen 800. Patient has not followed up with her primary care physician. Patient states that she had a stumble and fall over 24 hours ago. Wishes being stubborn and didn't come to the hospital. Is not appear to be acutely sick. Acute pain. Patient again admits that she does have her Flexeril and tramadol at home. States that she doesn't want to take anything stronger because she has her son at home and sleep. I did discuss length with patient about options and asked what she would like me to do for today. Patient states she would like medication to help with the pain. I did discuss living with patient about her chronic conditions and the fact that she stated she did have her medications at home to take has chosen not to take them. Patient again did not want me to give her any additional medications or stronger. Further discuss with patient about address her back issues. Patient should be using a heating pa d stretching exercises as previously instructed. Continue with all home medications. Follow up with her primary care physician in the morning. Patient states understanding Location: Lumbar Spine Timing/Duration: Constant Severity: Mild Pain/Injury Location: Back Allergies and Home Medications Allergies Coded Allergies: buspirone (Verified Allergy, Intermediate, SEVERE ANXIETY, 11/27/17) aripiprazole (Verified Allergy, Unknown, Heart racing, 08/24/18) bismuth subsalicylate (Unverified Allergy, Unknown, NAUSEA, 11/27/17) latex (Unverified Allergy, Unknown, RASH, 11/27/17) meperidine (Unverified Allergy, Unknown, RASH, 11/27/17) promethazine (Unverified Allergy, Unknown, DIFFICULTY BREATHING, 11/27/17) Uncoded Allergies: TAPE (Adverse Reaction, Unknown, RASH, 09/15/13) Home Medications Albuterol Sulfate 0.63 Mg/3 Ml Vial.neb, 0.63 MG IH PRN, (Reported) Albuterol Sulfate 1 Puff Puff, 2 PUFF IH Q4H PRN for COUGH, (Reported) 1 PUFF = 90 MCG Albuterol Sulfate 2.5 Mg/3 Ml Vial.neb, 2 PUFF IH Q4H, (Reported) Atorvastatin Calcium 20 Mg Tablet, 20 MG PO HS, (Reported) Brexpiprazole 4 Mg Tablet, 4 MG PO DAILY, (Reported) Bupropion HCl 150 Mg Tablet.er, 150 MG PO BID, (Reported) Cephalexin 500 Mg Capsule, 500 MG PO TID Prescribed by: MINE JACOBS on 07/13/19 1157 Cyclobenzaprine HCl 10 Mg Tablet, 10 MG PO TID PRN for PAIN-MODERATE (5-7), (Reported) Fluticasone Propionate 9.9 Ml [place].susp, 1 SPRAY NS DAILY, (Reported) 1 SPRAY EACH NARE DAILY Hydrocodone/Acetaminophen 1 Each Tablet, 1 TAB PO Q6H Prescribed by: KINGS MORIN on 08/16/192014 Ibuprofen 800 Mg Tablet, 800 MG PO Q8H PRN for PAIN Prescribed by: OLY HART on 02/12/19 06 Ondansetron 4 Mg Tab.rapdis, 4 MG PO Q6H PRN for NAUSEA/VOMITING Prescribed by: ROSSY KENNY on 01/01/192005 Ondansetron 4 Mg Tab.rapdis, 4 MG PO Q6H Prescribed by: KINGS MORIN on 08/16/192014 Oxcarbazepine 300 Mg Tablet, 900 MG PO MORNING AND EVENING, (Reported) Oxcarbazepine 300 Mg Tablet, 600 MG PO AFTERNOON, (Reported) Pantoprazole Sodium 40 Mg Tablet.dr, 40 MG PO DAILY, (Reported) Tramadol HCl 50 Mg Tablet, 50 MG PO Q6H PRN for PAIN-MILD TO MODERATE, (Reported) Patient Home Medication List Home Medication List Reviewed: Yes Review of Systems Constitutional: No no symptoms reported; see HPI; No chills, No diaphoresis, No dizziness, No fever, No malaise, No weakness, No weight gain, No weight loss, No other EENTM: No see HPI, No no symptoms reported, No ear discharge, No hearing loss, No ear pain, No blurred vision, No double vision, No eye pain, No tearing, No vision loss, No dental problems, No hoarseness, No mouth pain, No mouth swelling, No epistaxis, No nose congestion, No nose pain, No throat pain, No throat swelling, No other Respiratory: No no symptoms reported, No see HPI, No cough, No dyspnea on exertion, No hemoptysis, No orthopnea, No phlegm, No short of breath, No stridor, No wheezing, No other Cardiovascular: No no symptoms reported, No see HPI, No chest pain, No edema, No Hx of Intervention, No palpitations, No syncope, No vascular heart diseas, No other Musculoskeletal: No no symptoms reported; see HPI, back pain; No gout, No joint pain, No joint swelling, No muscle pain, No muscle stiffness, No muscle cramps, No muscle twitching, No muscle weakness, No neck pain, No other All Other Systems Reviewed Negative Unless Noted: Yes Past Zudzuov-Nywjli-Xcecwe Hx Patient Social History Alcohol Use: Denies Use Recreational Drug Use: No (SMOKED POT OCCASIONALLY, NONE FOR 1 YR) Smoking Status: Former Smoker Type Used: Cigarettes Former Smoker, Quit: Aug 12, 2018 2nd Hand Smoke Exposure: No Recent Foreign Travel: No Contact w/Someone Who Travel: No Recent Infectious Disease Expo: No Recent Hopitalizations: No Physical Abuse: No Sexual Abuse: No Mistreated: No Fear: No Immunizations Up To Date Tetanus Booster (TDap): Unknown Seasonal Allergies Seasonal Allergies: No Past Medical History Surgeries: Yes (EGD's, Colonoscopys, D&C, colon resection) Abdominal, Cystectomy, Hysterectomy Respiratory: Yes Asthma, Sleep Apnea Currently Using CPAP: No Currently Using BIPAP: No Cardiac: Yes High Cholesterol Neurological: No Reproductive Disorders: No Female Reproductive Disorders: Denies 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 Sexually Transmitted Disease: No HIV/AIDS: No Genitourinary: Yes Kidney Stones Gastrointestinal: Yes Gastroesophageal Reflux, Crohns Disease, Diverticulosis, Esophagitis Musculoskeletal: Yes Arthritis, Chronic Back Pain Endocrine: Yes (DM Type II, Morbid Obesity) Diabetes, Non-Insulin dep HEENT: No Loss of Vision: Bilateral Hearing Impairment: Denies Cancer: No Psychosocial: Yes Anxiety, Bipolar, Depression Integumentary: No Blood Disorders: No Adverse Reaction/Blood Tranf: No (HAS HAD BLOOD WITH NO REACTION) Physical Exam Vital Signs Vital Signs - First Documented 10/27/19 00:20 Temp 37.1 Pulse 92 Resp 17 B/P (MAP) 123/73 (90) O2 Delivery Room Air Capillary Refill : Less Than 3 Seconds Height, Weight, BMI Height: 5'4.00" Weight: 262lbs. 0oz. 118.897422uw; 44.00 BMI Method:Stated General Appearance: No Apparent Distress, WD/WN HEENT: PERRL/EOMI, TMs Normal, Normal ENT Inspection, Pharynx Normal Neck: Full Range of Motion, Normal Inspection, Non Tender, Supple Cardiovascular: Regular Rate, Rhythm, No Edema, No Gallop, No JVD, No Murmur, Normal Peripheral Pulses Respiratory: Chest Non Tender, Lungs Clear, Normal Breath Sounds, No Accessory Muscle Use, No Respiratory Distress, Accessory Muscle Use Gastrointestinal: Normal Bowel Sounds, No Organomegaly, No Pulsatile Mass, Non Tender, Soft Back: Normal Inspection, No CVA Tenderness, No Vertebral Tenderness, Other Progress/Results/Core Measures Results/Orders Vital Signs/I&O 10/27/19 00:20 Temp 37.1 Pulse 92 Resp 17 B/P (MAP) 123/73 (90) O2 Delivery Room Air Blood Pressure Mean: 90 Progress Progress Note : Time: 00:32 Progress Note Patient was offered full medical screening exam including imaging is declining. A long discussion with patient about her chronic issues and the medications that she is prescribed and that she does have at home. Patient admits that she does have plenty of her prescriptions at home but has not taken them. This is Bentyl ongoing issue with her back. Patient does not appear to have an emergent reason to be in the emergency department we did discuss at length about her chronic conditions. Patient is to take her home medications as instructed by her PCP. Rest, alternate heating pad and ice to affected area. Take all medications as prescribed which include tramadol, Flexeril, ibuprofen and Tylenol. Follow-up your PCP in 2-3 days. Departure Impression Primary Impression: Chronic back pain Additional Impression: Encounter for medical screening examination Disposition: HOME, SELF-CARE Condition: Stable Departure-Patient Inst. Decision time for Depature: 00:33 Referrals: [facility] (PCP) Primary Care Physician LOPEZ SHULTZ APRN (Family) Primary Care Physician Patient Instructions: Low Back Pain (DC) Add. Discharge Instructions: Rest, alternate heating pad and ice to affected area. Take all medications as prescribed which include tramadol, Flexeril, ibuprofen and Tylenol. Follow-up your PCP in 2-3 days. All discharge instructions reviewed with patient and/or family. Voiced understanding. IDMPLE MIKE MD October 27, 2019 00:33
--- NOTE | 2019-10-27 00:43 | NUR ---
PT AMBULATE TO BATHROOM WITHOUT DIFFICULTY.
== END 2019-10-27 00:46 | disposition home or self-care (01) ==
LOC: EDUNIT# 00:11 → ER FS 00:14
DX: M54.5 Low back pain (principal); G89.29 Other chronic pain; J45.909 Unspecified asthma, uncomplicated; E78.00 Pure hypercholesterolemia, unspecified; F41.9 Anxiety disorder, unspecified; F31.9 Bipolar disorder, unspecified; K21.0 Gastro-esophageal reflux disease with esophagitis; E66.01 Morbid (severe) obesity due to excess calories; Z88.8 Allergy status to other drugs, medicaments and biological substances; Z91.040 Latex allergy status; Z88.5 Allergy status to narcotic agent; Z79.51 Long term (current) use of inhaled steroids; Z87.891 Personal history of nicotine dependence; W17.89XA Other fall from one level to another, initial encounter
CPT/HCPCS: 99281

== ENCOUNTER 2019-12-24 06:55 | Emergency (ER) | payer MEDICAID ==
[~2019-12-24] VITALS: Ht 162.6 cm; Wt 121.5 kg
--- OUTSIDE RECORDS SUMMARY | 2019-12-24 07:03 | XMS REPORT | Continuity of Care Document ---
Author Organization Unknown Address Unknown Phone Unavailable Allergies Active Description Code Type Severity Reaction Onset Reported/Identified Relationship to Patient Clinical Status Yes TAPE TAPE Unknown RASH 09/15/2013 Yes buspirone [id number] Drug Allergy Moderate SEVERE ANXIETY 11/27/2017 Yes bismuth subsalicylate [id number] Drug Allergy Unknown NAUSEA 11/27/2017 Yes latex [id number] Drug Allergy Unknown RASH 11/27/2017 Yes meperidine [id number] Drug Allerg y Unknown RASH 11/27/2017 Yes promethazine [id number] Drug Allergy Unknown DIFFICULTY SANDI 11/27/2017 Yes aripiprazole [id number] Drug Allergy Unknown Heart racing 08/24/2018 Medications [...] MD Ot 626.8 MENSTRUAL DISORDER NEC 09/18/2013 LOENARD SOSA MD Ot V03.82 PROPHYLACTIC VACC AGAINST [...] 11/27/2017 MACARIO SINGH DO Ot Z79. 52 ENVIRONMENTAL HEALTH SAFETY ENGINEER (CURRENT) USE OF SYSTEMIC STER 11/27/2017 MACARIO SINGH DO Ot Z79. 84 ENVIRONMENTAL HEALTH SAFETY ENGINEER (CURRENT) USE OF ORAL HYPOGLYC 11/27/2017 MACARIO [...] 11/28/2017 MACARIO SINGH DO Ot Z79. 52 ENVIRONMENTAL HEALTH SAFETY ENGINEER (CURRENT) USE OF SYSTEMIC STER 11/28/2017 MACARIO SINGH DO Ot Z79. 84 HALF-WAY (CURRENT) USE OF ORAL HYPOGLYC 11/28/2017 MACARIO SINGH DO Ot Z79.899 OTHER ENVIRONMENTAL HEALTH SAFETY ENGINEER (CURRENT) DRUG THERAPY 12/19/2017 BRYSON SHEPHERD APRN Ot Z12.31 ENCNTR SCREEN MAMMOGRAM FOR MALIGNANT NE 01/04/2018 BRYSON SHEPHERD APRN Ot Z12.31 ENCNTR SCREEN MAMMOGRAM FOR MALIGNANT NE 08/17/2018 REINA MCCORMICK, ETHAN Olvera Ot E78. 00 PURE HYPERCHOLESTEROLEMIA, UNSPECIFIED 08/17/2018 REINA MCCORMICK, ETHAN Olvera Ot F31. 9 BIPOLAR DISORDER, UNSPECIFIED 08/17/2018 REINA MCCORMICK, ETHAN Olvera Ot F41. 9 ANXIETY DISORDER, UNSPECIFIED 08/17/2018 REINA MCCORMICK, ETHAN Olvera Ot F60. 9 PERSONALITY DISORDER, UNSPECIFIED 08/17/2018 REINA MCCORMICK, ETHAN Olvera Ot G47. 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 32 LEFT LOWER QUADRANT PAIN 08/17/2018 ETHAN HUANG MD Ot Z79. 51 HALF-WAY (CURRENT) USE OF INHALED STERO 08/17/2018 ETHAN HUANG MD Ot Z79. 52 ENVIRONMENTAL HEALTH SAFETY ENGINEER (CURRENT) USE OF SYSTEMIC STER 08/17/2018 ETHAN HUANG MD Ot Z87. 19 PERSONAL HISTORY OF OTHER DISEASES OF TH 08/17/2018 ETHAN HUANG MD Ot Z87.442 PERSONAL HISTORY OF URINARY CALCULI 08/17/2018 ETHAN HUANG MD Ot Z87.891 PERSONAL HISTORY OF NICOTINE DEPENDENCE 08/17/2018 ETHAN HUANG MD Ot Z88. 8 ALLERGY STATUS TO [facility] DRUG/MEDS/BIOL SUB 08/17/2018 ETHAN HUANG MD Ot [...] F31. 9 BIPOLAR DISORDER, UNSPECIFIED 08/20/2018 ETHAN HUAGN MD Ot F41. 9 ANXIETY DISORDER, UNSPECIFIED [...] 08/20/2018 ETHAN HUANG MD Ot Z79. 51 ENVIRONMENTAL HEALTH SAFETY ENGINEER (CURRENT) USE OF INHALED STERO 08/20/2018 ETHAN HUANG MD Ot Z79. 52 HALF-WAY (CURRENT) USE OF SYSTEMIC STER 08/20/2018 ETHAN HUANG MD Ot Z87. 19 PERSONAL HISTORY OF OTHER DISEASES OF TH 08/20/2018 ETHAN HUANG MD Ot Z87.442 PERSONAL HISTORY OF URINARY CALCULI 08/20/2018 ETHAN HAUNG MD Ot Z87.891 PERSONAL HISTORY OF NICOTINE [...] Z91.04 0 LATEX ALLERGY STATUS 10/11/2018 MACARIO SNIGH DO Ot Z01.818 ENCOUNTER FOR OTHER PREPROCEDURAL [...] 10/18/2018 MACARIO SINGH DO Ot Z79. 84 ENVIRONMENTAL HEALTH SAFETY ENGINEER (CURRENT) USE OF ORAL HYPOGLYC 10/18/2018 MACARIO SINGH DO Ot Z79.899 OTHER ENVIRONMENTAL HEALTH SAFETY ENGINEER (CURRENT) DRUG THERAPY 01/01/2019 KENNY DO, ROSSY [...] EFRAÍN HANDLEY ROSSY L Ot Z79.8 4 ENVIRONMENTAL HEALTH SAFETY ENGINEER (CURRENT) USE OF ORAL HYPOGLYC 01/01/2019 KENNY [...] Ot Z91.0 40 LATEX ALLERGY STATUS 01/01/2019 SHEILA MCCORMICK, LEONARD Dimas Ot 626.2 EXCESSIVE MENSTRUATION 01/01/2019 LEONARD SOSA MD Ot V72.63 PRE-PROCEDURAL LABORATORY EXAMINATION 01/01/2019 LEONARD SOSA MD Ot V72.84 EXAM PRE-OPERATIVE NOS 01/01/2019 BRYSON SHEPHERD PERSONNEL ANALYST Ot Z12.31 ENCNTR SCREEN MAMMOGRAM FOR MALIGNANT [...] KENNY DO, ROSSY L Ot Z79.8 4 ENVIRONMENTAL HEALTH SAFETY ENGINEER (CURRENT) USE OF ORAL HYPOGLYC 01/17/2019 KENNY [...] INDEX (BMI) 45.0-49.9, ADULT 02/12/2019 OLY HART DO Ot Z79.84 ENVIRONMENTAL HEALTH SAFETY ENGINEER (CURRENT) USE OF ORAL HYPOGLYC 02/12/2019 OLY [...] ADULT 02/14/2019 OLY HART DO, Ot Z79.84 ENVIRONMENTAL HEALTH SAFETY ENGINEER (CURRENT) USE OF ORAL HYPOGLYC 02/14/2019 OLY [...] KENNY DO, ROSSY L Ot Z79.5 2 ENVIRONMENTAL HEALTH SAFETY ENGINEER (CURRENT) USE OF SYSTEMIC STER 03/09/2019 KENNY DO, ROSYS L Ot Z79.8 4 ENVIRONMENTAL HEALTH SAFETY ENGINEER (CURRENT) USE OF ORAL HYPOGLYC 03/09/2019 KENNY [...] KENNY DO, ROSSY L Ot Z79.8 4 ENVIRONMENTAL HEALTH SAFETY ENGINEER (CURRENT) USE OF ORAL HYPOGLYC 03/11/2019 KENNY [...] PURE HYPERCHOLESTEROLEMIA, UNSPECIFIED 06/21/2019 KEITH MCCORMICK, MINE Camilo Ot F17.210 NICOTINE DEPENDENCE, CIGARETTES, UNCOMPL 06/21/2019 [...] KEITH MCCORMICK, MINE Camilo Ot Z79. 51 HALF-WAY (CURRENT) USE OF INHALED STERO 06/21/2019 MINE PARKER MD Ot Z79. 84 HALF-WAY (CURRENT) USE OF ORAL HYPOGLYC 06/21/2019 KEITH MCCORMICK, MINE Camilo Ot Z87.442 PERSONAL HISTORY OF URINARY CALCULI 06/21/2019 KEITH MCCORMICK, MINE Camilo Ot Z88. 5 ALLERGY STATUS TO NARCOTIC AGENT STATUS 06/21/2019 KEITH MCCORMICK, MINE Camilo Ot Z88. 8 ALLERGY STATUS TO OTH DRUG/MEDS/BIOL SUB 06/21/2019 MINE PARKER MD Ot Z90.710 ACQUIRED ABSENCE OF BOTH CERVIX AND UTER 06/21/2019 MINE PARKER MD Ot Z91.040 LATEX ALLERGY STATUS 06/21/2019 BRYSON [...] KEITH MCCORMICK, MINE Camilo Ot Z79. 51 ENVIRONMENTAL HEALTH SAFETY ENGINEER (CURRENT) USE OF INHALED STERO 06/28/2019 KEITH MCCORMICK, MINE Camilo Ot Z79. 84 HALF-WAY (CURRENT) USE OF ORAL HYPOGLYC 06/28/2019 KEITH MCCORMICK, MINE Camilo Ot Z87.442 PERSONAL HISTORY OF URINARY CALCULI 06/28/2019 KEITH MCCORMICK, MINE Camilo Ot Z88. 5 ALLERGY STATUS TO NARCOTIC AGENT STATUS 06/28/2019 KEITH MCCORMICK, MINE Camilo Ot Z88. 8 ALLERGY STATUS TO OTH DRUG/MEDS/BIOL SUB 06/28/2019 KEITH MCCOMRICK, MINE Camilo Ot Z90.710 ACQUIRED ABSENCE OF [...] Ot E78. 00 PURE HYPERCHOLESTEROLEMIA, UNSPECIFIED 07/13/2019 REYNALDO MCCORMICK, MINE Townsend Ot F17.210 NICOTINE DEPENDENCE, CIGARETTES, UNCOMPL 07/13/2019 [...] 07/13/2019 MINE JACOBS MD Ot Z79. 84 ENVIRONMENTAL HEALTH SAFETY ENGINEER (CURRENT) USE OF ORAL HYPOGLYC 07/13/2019 MINE JACOBS MD Ot Z90. 49 ACQUIRED ABSENCE OF OTHER [...] 08/16/2019 KINGS MORIN MD Ot Z79. 51 HALF-WAY (CURRENT) USE OF INHALED STERO 08/16/2019 KINGS MORIN MD Ot Z87.891 PERSONAL HISTORY OF NICOTINE DEPENDENCE 08/16/2019 KINGS MORIN MD Ot Z88. 5 ALLERGY STATUS TO NARCOTIC AGENT STATUS 08/16/2019 KINGS MORIN MD Ot Z88. 8 ALLERGY STATUS TO OTH DRUG/MEDS/BIOL SUB 08/16/2019 KINGS MORIN MD Ot Z91.040 LATEX ALLERGY STATUS 08/16/2019 BRYSON SHEPHERD APRN Ot Z12.31 ENCNTR SCREEN MAMMOGRAM FOR MALIGNANT NE 10/27/2019 BRYSON SHEPHERD RONALD Ot Z12.31 ENCNTR SCREEN MAMMOGRAM FOR MALIGNANT NE 10/29/2019 DIMPLE MIKE MD Ot E66.01 MORBID (SEVERE) OBESITY DUE TO EXCESS CA 10/29/2019 DIMPLE MIKE MD, Ot E78.00 PURE HYPERCHOLESTEROLEMIA, UNSPECIFIED 10/29/2019 DIMPLE MIKE MD, Ot F31.9 BIPOLAR DISORDER, UNSPECIFIED 10/29/2019 DIMPLE MIKE MD, Ot F41.9 ANXIETY DISORDER, UNSPECIFIED 10/29/2019 DIMPLE MIKE MD, Ot G89.29 OTHER CHRONIC PAIN 10/29/2019 DIMPLE MIKE MD, Ot J45.909 UNSPECIFIED ASTHMA, UNCOMPLICATED 10/29/2019 DIMPLE MIKE MD, Ot K21.0 GASTRO-ESOPHAGEAL REFLUX DISEASE WITH ES 10/29/2019 DIMPLE MIKE MD, Ot M54.5 LOW BACK PAIN 10/29/2019 DIMPLE MIKE MD, Ot W17.89XA OTHER FALL FROM ONE LEVEL TO ANOTHER, IN 10/29/2019 DIMPLE MIKE MD, Ot Z79.51 HALF-WAY (CURRENT) USE OF INHALED STERO 10/29/2019 DIMPLE MIKE MD, Ot Z87.891 PERSONAL HISTORY OF NICOTINE DEPENDENCE 10/29/2019 DIMPLE MIKE MD, Ot Z88.5 ALLERGY STATUS TO NARCOTIC AGENT STATUS 10/29/2019 DIMPLE MIKE MD, Ot Z88.8 ALLERGY STATUS TO OTH DRUG/MEDS/BIOL SUB 10/29/2019 DIMPLE MIKE MD, Ot Z91.040 LATEX ALLERGY STATUS Procedures There is no data. Results Test Result Range [facility] - 02/26/17 15:42 Glucose, Serum 92 mg/dL [...] 7-25 CREATININE 0.70 mg/dL 0.50-1.10 eGFR NON-AFR. ESTONIAN 112 mL/min/1.73m2 > OR = 60 eGFR [...] Status Pt. Type Provider Facility Loc./Unit Complaint [id number] 12/01/2019 13:40:00 12/01/2019 23:59: 59 [facility] [id number] 09/15/2019 13:30:00 Document Registration [id number] 05/21/2019 11:00:00 Document Registration [id number] 03/29/2018 12:00:00 Document Registration [id number] 03/15/2018 12:20:00 Document Registration [id number] 12/17/2017 15:00:00 Document Registration [id number] 05/21/2017 10:40:00 Document Registration [id number] 03/02/2017 08:00:00 Document Registration [id number] 02/26/2017 14:00:00 Document Registration [id number] 10/27/2019 00:14:00 00:46:00 DIS Outpatient RASHID MCCORMICK, DIMPLE Wang [facility] ER FS LOWER BACK PAIN [id number] 08/16/2019 19:38:00 20:20:00 DIS Emergency KINGS MORIN MD [facility] ER FS NAUSEA/VOMITTING [id number] 07/11/2019 23:42:00 14:09:00 DIS Inpatient REYNALDO MCCORMICK, MINE Townsend [facility] 4TH SIGMOID DIVERTICULITIS [id number] 06/21/2019 11:52:00 12:48:00 DIS Emergency KEITH MCCORMICK, MINE Camilo [facility] ER FS BACK PAIN [id number] 03/09/2019 04:51:00 05:13:00 DIS Emergency EFRAÍN DOROSSY L [facility] ER FS NAUSEA; HIVES; ITCHY TH ROAT [id number] 02/12/2019 04:51:00 019 06:32:00 DIS Emergency OLY HART DO [facility] ER FS BACK PAIN [id number] 01/01/2019 18:03:00 20:14:00 DIS Emergency ROSSY KENNY DO [facility] ER FS BLOODY STOOL; VOMITING [id number] 10/15/2018 07:26:00 019 09:10:00 DIS Outpatient MACARIO SINGH DO [facility] ENDO LUQ ABD PAIN/HX DIVERTI CULITIS [id number] 10/11/2018 11:00:00 12:39:00 DIS Outpatient SINGH MACARIO AHNDLEY [facility] PREOP COLONOSCOPY [id number] 08/24/2018 00:30:00 019 13:30:00 DIS Inpatient RACHEL MOREIRA DO, V [facility] 4TH DIVERTICULITIS [id number] 08/17/2018 07:33:00 019 09:43:00 DIS Emergency REINA MCCORMICK, ETHAN Olvera [facility] ER FS LT SIDE PAIN [id number] 12/18/2017 09:19:00 018 23:59:59 CLS Outpatient BRYSON SHEPHERD APRN [facility] RAD SCREENING FOR B REAST CANCER [id number] 11/27/2017 06:43:00 018 09:10:00 DIS Outpatient SINGH MACARIO HANDLEY [facility] ENDO HX DIVERTICULTITIS/ THREAD GRINDER TOOL HNS'S/GERD [id number] 11/20/2017 05:37:00 018 09:54:00 DIS Outpatient SINGH MACARIO HANDLEY [facility] PREOP COLONOSCOPY/EGD [id number] 11/09/2017 20:00:00 018 23:59:59 CLS Preadmit BRYSON SHEPHERD APRN [facility] SLEEP HYPERSOMNIA, UNSPECIFIE D G47.10 [id number] 09/17/2013 06:00:00 09:30:00 DIS Outpatient SHEILA MCCORMICK, LEONARD Dimas [facility] SDC MENORRHAGIA;CHR ONIC PELVIC PAIN;ENDOMETRIOSIS [id number] 09/15/2013 09:54:00 23:59:59 CLS Outpatient SHEILA MCCORMICK, LEONARD Dimas [facility] PREOP MENORRHAGIA;CHR ONIC PELVIC PAIN;ENDOMETRIOSIS [id number] 12/24/2019 06:57:[address] Emergency AVA BALDWIN DO [facility] ER FS HEADACHES,BREATHING PROBLEMS
[2019-12-24] MEDS ORDERED: predniSONE 20 MG TAB PO ONE (07:45)
--- NOTE | 2019-12-24 07:51 | ED General ---
General Chief Complaint: Respiratory Problems Stated Complaint: HEADACHES,BREATHING PROBLEMS Nursing Triage Note: Patient reports she has a history of asthma, states she became short of breath yesterday while at [facility], has been using her inhaler and nebulizer treatments without relief. She reports a dry, non-productive cough, denies any recent sick contacts. Nursing Sepsis Screen: No Definite Risk Source of Information: Patient Exam Limitations: No Limitations History of Present Illness Date Seen by Provider: Dec 24, 2019 Time Seen by Provider: 07:30 Initial Comments Patient is a 34-year-old female with history of asthma who presents with increased shortness breath and wheezing for the past 24 hours. Reports dry cough, dyspnea with exertion and wheezing. Patient does use her inhaler twice without relief. States she feels as though asthma exacerbation is weather related. No fever chills, nausea vomiting or sweats. Denies increased leg pain or swelling. No history of DVT or PE. No other acute symptoms or complaints. Allergies and Home Medications Allergies Coded Allergies: buspirone (Verified Allergy, Intermediate, SEVERE ANXIETY, 11/27/17) aripiprazole (Verified Allergy, Unknown, Heart racing, 08/24/18) bismuth subsalicylate (Unverified Allergy, Unknown, NAUSEA, 11/27/17) latex (Unverified Allergy, Unknown, RASH, 11/27/17) meperidine (Unverified Allergy, Unknown, RASH, 11/27/17) promethazine (Unverified Allergy, Unknown, DIFFICULTY BREATHING, 11/27/17) Uncoded Allergies: TAPE (Adverse Reaction, Unknown, RASH, 09/15/13) Home Medications Albuterol Sulfate 0.63 Mg/3 Ml Vial.neb, 0.63 MG IH PRN, (Reported) Albuterol Sulfate 1 Puff Puff, 2 PUFF IH Q4H PRN for COUGH, (Reported) 1 PUFF = 90 MCG Albuterol Sulfate 2.5 Mg/3 Ml Vial.neb, 2 PUFF IH Q4H, (Reported) Atorvastatin Calcium 20 Mg Tablet, 20 MG PO HS, (Reported) Brexpiprazole 4 Mg Tablet, 4 MG PO DAILY, (Reported) Bupropion HCl 150 Mg Tablet.er, 150 MG PO BID, (Reported) Cephalexin 500 Mg Capsule, 500 MG PO TID Prescribed by: MINE JACOBS on 07/13/19 1157 Cyclobenzaprine HCl 10 Mg Tablet, 10 MG PO TID PRN for PAIN-MODERATE (5-7), (Reported) Fluticasone Propionate 9.9 Ml [place].susp, 1 SPRAY NS DAILY, (Reported) 1 SPRAY EACH NARE DAILY Hydrocodone/Acetaminophen 1 Each Tablet, 1 TAB PO Q6H Prescribed by: KINGS MORIN on 08/16/192014 Ibuprofen 800 Mg Tablet, 800 MG PO Q8H PRN for PAIN Prescribed by: OLY HART on 02/12/19620 Ondansetron 4 Mg Tab.rapdis, 4 MG PO Q6H PRN for NAUSEA/VOMITING Prescribed by: ROSSY KENNY on 01/01/192005 Ondansetron 4 Mg Tab.rapdis, 4 MG PO Q6H Prescribed by: KINGS MORIN on 08/16/192014 Oxcarbazepine 300 Mg Tablet, 900 MG PO MORNING AND EVENING, (Reported) Oxcarbazepine 300 Mg Tablet, 600 MG PO AFTERNOON, (Reported) Pantoprazole Sodium 40 Mg Tablet.dr, 40 MG PO DAILY, (Reported) Tramadol HCl 50 Mg Tablet, 50 MG PO Q6H PRN for PAIN-MILD TO MODERATE, (Reported) Patient Home Medication List Home Medication List Reviewed: Yes Review of Systems Review of Systems Constitutional: see HPI EENTM: see HPI Respiratory: see HPI Cardiovascular: see HPI Gastrointestinal: see HPI Genitourinary: see HPI Musculoskeletal: see HPI Skin: see HPI Psychiatric/Neurological: See HPI Hematologic/Lymphatic: See HPI Immunological/Allergic: see HPI Past Xpmyttw-Qsqrmn-Gpjnnx Hx Past Med/Social Hx: Reviewed Nursing Past Med/Soc Hx Patient Social History Alcohol Use: Denies Use Recreational Drug Use: No (SMOKED POT OCCASIONALLY, NONE FOR 1 YR) Smoking Status: Current Everyday Smoker Type Used: Cigarettes Former Smoker, Quit: Aug 12, 2018 2nd Hand Smoke Exposure: No Recent Foreign Travel: No Contact w/Someone Who Travel: No Recent Infectious Disease Expo: No Recent Hopitalizations: No Physical Abuse: No Sexual Abuse: No Mistreated: No Fear: No Immunizations Up To Date Tetanus Booster (TDap): Unknown Seasonal Allergies Seasonal Allergies: No Past Medical History Surgeries: Yes (EGD's, Colonoscopys, D&C, colon resection) Abdominal, Cystectomy, Hysterectomy Respiratory: Yes Asthma, Sleep Apnea, COPD Currently Using CPAP: No Currently Using BIPAP: No Cardiac: Yes High Cholesterol Neurological: No Reproductive Disorders: No Female Reproductive Disorders: Denies SUPPORT STAFF History: Hysterectomy Sexually Transmitted Disease: No HIV/AIDS: No Genitourinary: Yes Kidney Stones Gastrointestinal: Yes Gastroesophageal Reflux, Crohns Disease, Diverticulosis, Esophagitis Musculoskeletal: Yes Arthritis, Chronic Back Pain Endocrine: Yes (DM Type II, Morbid Obesity) Diabetes, Non-Insulin dep HEENT: No Loss of Vision: Bilateral Hearing Impairment: Denies Cancer: No Psychosocial: Yes Anxiety, Bipolar, Depression Integumentary: No Blood Disorders: No Adverse Reaction/Blood Tranf: No (HAS HAD BLOOD WITH NO REACTION) Physical Exam Vital Signs Vital Signs - First Documented 12/24/19 07:16 Temp 36.7 Pulse 98 Resp 18 B/P (MAP) 124/80 (95) Pulse Ox 95 O2 Delivery Room Air Capillary Refill : Less Than 3 Seconds Height, Weight, BMI Height: 5'4.00" Weight: 262lbs. 0oz. 118.527993yl; 45.00 BMI Method:Stated General Appearance: No Apparent Distress, Anxious Eyes: Bilateral Eye Normal Inspection, Bilateral Eye PERRL, Bilateral Eye EOMI HEENT: Normal ENT Inspection, Pharynx Normal Neck: Full Range of Motion, Non Tender, Supple Respiratory: Decreased Breath Sounds (no stridor), Wheezing, Other Cardiovascular: Regular Rate, Rhythm, No Edema Gastrointestinal: Normal Bowel Sounds Back: Normal Inspection Extremity: Normal Capillary Refill, Normal Inspection, No Calf Tenderness Neurologic/Psychiatric: Alert, Oriented x3, No Motor/Sensory Deficits Skin: Normal Color, Warm/Dry Focused Exam Sepsis Stage: Ruled Out Progress/Results/Core Measures Suspected Sepsis Recent Fever Within 48 Hours: No Infection Criteria Present: Suspected New Infection New/Unexplained Altered Menta: No Sepsis Screen: No Definite Risk SIRS Temperature: Pulse: 98 Respiratory Rate: 18 Blood Pressure 124 /80 Mean: 95 Results/Orders My Orders Orders - AVA BALDWIN DO Prednisone Tablet (Deltasone Tablet) (12/24/19 07:45) Vital Signs/I&O 12/24/19 07:16 Temp 36.7 Pulse 98 Resp 18 B/P (MAP) 124/80 (95) Pulse Ox 95 O2 Delivery Room Air Capillary Refill : Less Than 3 Seconds Blood Pressure Mean: 95 Departure Communication (Admissions) Acute asthma exacerbation likely weather-related. No fever, nonproductive cough. No respiratory distress while in the ED. Steroids given. Will continue supportive care with PCP follow-up. Courtesy work provided. Return precautions reviewed. Impression Primary Impression: Acute asthma exacerbation Disposition: 01 HOME, SELF-CARE Condition: Stable Departure-Patient Inst. Referrals: [facility] (PCP) Primary Care Physician LOPEZ SHULTZ APRN (Family) Primary Care Physician Patient Instructions: Asthma, Adult (DC) Add. Discharge Instructions: Please take prednisone as directed and use 2 puffs of albuterol inhaler every 4 hours for the next 48 hours. Follow-up with your PCP in 2-3 days for reevaluation. Return to ED if there are worsening symptoms. All discharge instructions reviewed with patient and/or family. Voiced understanding. Scripts Albuterol Sulfate (PROAIR HFA) 1 Puff Puff 2 PUFF IH Q4H, #1 PUFF 1 PUFF = 90 MCG Prov: AVA BALDWIN DO 12/24/19 Prednisone (Prednisone) 20 Mg Tab 60 MG PO DAILY, #6 TAB 0 Refills Prov: AVA BALDWIN DO 12/24/19 AVA BALDWIN DO Dec 24, 2019 07:51
[2019-12-24] MEDS ORDERED: PRD20T PO (07:53)
[2019-12-24] MEDS ORDERED: RT-ALBUINH IH (07:53)
[2019-12-24 08:05] VITALS: BP 118/76
== END 2019-12-24 08:25 | disposition home or self-care (01) ==
LOC: EDUNIT# 06:55 → ER FS 06:57
DX: J45.901 Unspecified asthma with (acute) exacerbation (principal); F17.210 Nicotine dependence, cigarettes, uncomplicated; J44.9 Chronic obstructive pulmonary disease, unspecified; E78.00 Pure hypercholesterolemia, unspecified; K21.0 Gastro-esophageal reflux disease with esophagitis; G89.29 Other chronic pain; M54.9 Dorsalgia, unspecified; F41.9 Anxiety disorder, unspecified; F31.9 Bipolar disorder, unspecified; E66.01 Morbid (severe) obesity due to excess calories; Z68.42 Body mass index [BMI] 45.0-49.9, adult; Z88.8 Allergy status to other drugs, medicaments and biological substances; Z91.040 Latex allergy status; Z88.5 Allergy status to narcotic agent; Z79.891 Long term (current) use of opiate analgesic; Z79.51 Long term (current) use of inhaled steroids
CPT/HCPCS: 99283

== ENCOUNTER 2019-12-28 18:19 | Emergency (ER) | payer MEDICAID ==
[~2019-12-28] VITALS: Ht 162.5 cm; Wt 135.0 kg
--- OUTSIDE RECORDS SUMMARY | 2019-12-28 18:26 | XMS REPORT | Continuity of Care Document ---
Author Organization Unknown Address Unknown Phone Unavailable Allergies Active Description Code Type Severity Reaction Onset Reported/Identified Relationship to Patient Clinical Status Yes TAPE TAPE Unknown RASH 09/15/2013 Yes buspirone [id number] Drug Allergy Moderate SEVERE ANXIETY 11/27/2017 Yes bismuth subsalicylate [id number] Drug Allergy Unknown NAUSEA 11/27/2017 Yes latex [id number] Drug Allergy Unknown RASH 11/27/2017 Yes meperidine [id number] Drug Allerg y Unknown RASH 11/27/2017 Yes promethazine [id number] Drug Allergy Unknown DIFFICULTY SANDI 11/27/2017 Yes aripiprazole [id number] Drug Allergy Unknown Heart racing 08/24/2018 Medications [...] Ot V72.84 EXAM PRE-OPERATIVE NOS 11/21/2017 MACARIO SIGNH DO Ot K21. 9 GASTRO-ESOPHAGEAL REFLUX DISEASE [...] 11/27/2017 MACARIO SINGH DO Ot Z79. 52 MARKET DEVELOPMENT MANAGER (CURRENT) USE OF SYSTEMIC STER 11/27/2017 MACARIO SINGH DO Ot Z79. 84 MARKET DEVELOPMENT MANAGER (CURRENT) USE OF ORAL HYPOGLYC 11/27/2017 MACARIO SINGH DO Ot Z79.899 OTHER NURSING HOME (CURRENT) DRUG THERAPY 11/28/2017 MACARIO SINGH DO [...] 11/28/2017 MACARIO SINGH DO Ot Z79. 52 MARKET DEVELOPMENT MANAGER (CURRENT) USE OF SYSTEMIC STER 11/28/2017 MACARIO SINGH DO Ot Z79. 84 NURSING HOME (CURRENT) USE OF ORAL HYPOGLYC 11/28/2017 MACARIO SINGH DO Ot Z79.899 OTHER MARKET DEVELOPMENT MANAGER (CURRENT) DRUG THERAPY 12/19/2017 BRYSON SHEPHERD APRN [...] 08/17/2018 ETHAN HUANG MD Ot Z79. 51 NURSING HOME (CURRENT) USE OF INHALED STERO 08/17/2018 ETHAN HUANG MD Ot Z79. 52 MARKET DEVELOPMENT MANAGER (CURRENT) USE OF SYSTEMIC STER 08/17/2018 ETHAN HUANG MD Ot Z87. 19 PERSONAL HISTORY OF OTHER DISEASES OF TH 08/17/2018 ETHAN HUANG MD Ot Z87.442 PERSONAL HISTORY OF URINARY CALCULI 08/17/2018 ETHAN HUANG MD Ot Z87.891 PERSONAL HISTORY OF NICOTINE DEPENDENCE 08/17/2018 ETHAN HUANG MD Ot Z88. 8 ALLERGY STATUS TO [facility] DRUG/MEDS/BIOL SUB 08/17/2018 ETHAN HUANG MD Ot [...] 08/20/2018 ETHAN HUANG MD Ot Z79. 51 MARKET DEVELOPMENT MANAGER (CURRENT) USE OF INHALED STERO 08/20/2018 ETHAN HUANG MD Ot Z79. 52 NURSING HOME (CURRENT) USE OF SYSTEMIC STER 08/20/2018 ETHAN [...] 10/15/2018 MACARIO SINGH DO Ot Z79. 84 NURSING HOME (CURRENT) USE OF ORAL HYPOGLYC 10/15/2018 MACARIO SINGH DO Ot Z79.899 OTHER NURSING HOME (CURRENT) DRUG THERAPY 10/18/2018 MACARIO SINGH DO [...] 10/18/2018 MACARIO SINGH DO Ot Z79. 84 MARKET DEVELOPMENT MANAGER (CURRENT) USE OF ORAL HYPOGLYC 10/18/2018 MACARIO SINGH DO Ot Z79.899 OTHER MARKET DEVELOPMENT MANAGER (CURRENT) DRUG THERAPY 01/01/2019 KENNY DO, ROSSY [...] KENNY DO, ROSSY L Ot Z79.5 1 NURSING HOME (CURRENT) USE OF INHALED STERO 01/01/2019 EFRAÍN HANDLEY ROSSY L Ot Z79.8 4 MARKET DEVELOPMENT MANAGER (CURRENT) USE OF ORAL HYPOGLYC 01/01/2019 KENNY [...] V72.84 EXAM PRE-OPERATIVE NOS 01/01/2019 BRYSON SHEPHERD AUTOMOTIVE GENERAL MANAGER Ot Z12.31 ENCNTR SCREEN MAMMOGRAM FOR MALIGNANT [...] KENNY DO, ROSSY L Ot Z79.5 1 NURSING HOME (CURRENT) USE OF INHALED STERO 01/17/2019 KENNY DO, ROSSY L Ot Z79.8 4 MARKET DEVELOPMENT MANAGER (CURRENT) USE OF ORAL HYPOGLYC 01/17/2019 KENNY DO, ROSSY L Ot Z87.1 9 PERSONAL HISTORY OF OTHER DISEASES OF TH 01/17/2019 KNENY DO, ROSSY L Ot Z87.8 91 PERSONAL [...] ADULT 02/12/2019 OLY HART DO Ot Z79.84 MARKET DEVELOPMENT MANAGER (CURRENT) USE OF ORAL HYPOGLYC 02/12/2019 OLY [...] ADULT 02/14/2019 OLY HART DO, Ot Z79.84 NURSING HOME (CURRENT) USE OF ORAL HYPOGLYC 02/14/2019 OLY [...] ADULT 02/14/2019 OLY HART DO, Ot Z79.84 MARKET DEVELOPMENT MANAGER (CURRENT) USE OF ORAL HYPOGLYC 02/14/2019 OLY [...] ADULT 02/19/2019 OLY HART DO, Ot Z79.84 NURSING HOME (CURRENT) USE OF ORAL HYPOGLYC 02/19/2019 OLY [...] KENNY DO, ROSSY L Ot Z79.5 1 NURSING HOME (CURRENT) USE OF INHALED STERO 03/09/2019 KENNY DO, ROSSY L Ot Z79.5 2 MARKET DEVELOPMENT MANAGER (CURRENT) USE OF SYSTEMIC STER 03/09/2019 KENNY DO, ROSSY L Ot Z79.8 4 MARKET DEVELOPMENT MANAGER (CURRENT) USE OF ORAL HYPOGLYC 03/09/2019 KENNY [...] KENNY DO, ROSSY L Ot Z79.5 1 NURSING HOME (CURRENT) USE OF INHALED STERO 03/11/2019 KENNY DO, ROSSY L Ot Z79.5 2 NURSING HOME (CURRENT) USE OF SYSTEMIC STER 03/11/2019 KENNY DO, ROSSY L Ot Z79.8 4 MARKET DEVELOPMENT MANAGER (CURRENT) USE OF ORAL HYPOGLYC 03/11/2019 KENNY [...] KEITH MCCORMICK, MINE Camilo Ot Z79. 51 NURSING HOME (CURRENT) USE OF INHALED STERO 06/21/2019 MINE PARKER MD Ot Z79. 84 NURSING HOME (CURRENT) USE OF ORAL HYPOGLYC 06/21/2019 KEITH [...] KEITH MCCORMICK, MINE Camilo Ot Z79. 51 MARKET DEVELOPMENT MANAGER (CURRENT) USE OF INHALED STERO 06/28/2019 KEITH MCCORMICK, MINE Camilo Ot Z79. 84 NURSING HOME (CURRENT) USE OF ORAL HYPOGLYC 06/28/2019 KEITH MCCORMICK, MINE Camilo Ot Z87.442 PERSONAL HISTORY OF URINARY CALCULI 06/28/2019 KEITH MCCORMICK, MINE Camilo Ot Z88. 5 ALLERGY STATUS TO NARCOTIC AGENT STATUS 06/28/2019 KEITH MCCORMICK, MINE Camilo Ot Z88. 8 ALLERGY STATUS TO OTH DRUG/MEDS/BIOL SUB 06/28/2019 KEITH MCCORMICK, MINE Camilo Ot Z90.710 ACQUIRED ABSENCE OF BOTH CERVIX AND UTER 06/28/2019 KEITH MCOCRMICK, MINE Camilo Ot Z91.040 LATEX ALLERGY STATUS [...] 07/13/2019 MINE JACOBS MD Ot Z79. 84 MARKET DEVELOPMENT MANAGER (CURRENT) USE OF ORAL HYPOGLYC 07/13/2019 MINE [...] 08/16/2019 KINGS MORIN MD Ot Z79. 51 NURSING HOME (CURRENT) USE OF INHALED STERO 08/16/2019 KINGS [...] IN 10/29/2019 DIMPLE MIKE MD, Ot Z79.51 NURSING HOME (CURRENT) USE OF INHALED STERO 10/29/2019 DIMPLE MIKE MD, Ot Z87.891 PERSONAL HISTORY OF NICOTINE DEPENDENCE 10/29/2019 DIMPLE MIKE MD, Ot Z88.5 ALLERGY STATUS TO NARCOTIC AGENT STATUS 10/29/2019 DIMPLE MIKE MD, Ot Z88.8 ALLERGY STATUS TO OTH DRUG/MEDS/BIOL SUB 10/29/2019 DIMPLE MIKE MD Ot Z91.040 LATEX ALLERGY STATUS 12/26/2019 NICOLASA DOAVA Ot E66.01 MORBID (SEVERE) OBESITY DUE TO EXCESS CA 12/26/2019 NICOLASA DOAVA Ot E78.00 PURE HYPERCHOLESTEROLEMIA, UNSPECIFIED 12/26/2019 NICOLASA DOAVA Ot F17.210 NICOTINE DEPENDENCE, CIGARETTES, UNCOMPL 12/26/2019 NICOLASA DOAVA Ot F31.9 BIPOLAR DISORDER, UNSPECIFIED 12/26/2019 BALDWIN DOAVA Ot F41.9 ANXIETY DISORDER, UNSPECIFIED 12/26/2019 NICOLASA DOAVA Ot G89.29 OTHER CHRONIC PAIN 12/26/2019 NICOLASA DOAVA Ot J44.9 CHRONIC OBSTRUCTIVE PULMONARY DISEASE, U 12/26/2019 KALAMAZOO DO, AVA Ot J45.901 UNSPECIFIED ASTHMA WITH (ACUTE) EXACERBA 12/26/2019 [facility], AVA Ot K21.0 GASTRO-ESOPHAGEAL REFLUX DISEASE WITH ES 12/26/2019 [facility], AVA Ot M54.9 DORSALGIA, UNSPECIFIED 12/26/2019 [facility], AVA Ot R51 HEADACHE 12/26/2019 KALAMAZOO DO, AVA Ot Z68.42 BODY MASS INDEX (BMI) 45.0-49.9, ADULT 12/26/2019 [facility], AVA Ot Z79.51 NURSING HOME (CURRENT) USE OF INHALED STERO 12/26/2019 [facility], AVA Ot Z79.891 NURSING HOME (CURRENT) USE OF OPIATE ANALGE 12/26/2019 [facility], AVA Ot Z88.5 ALLERGY STATUS TO NARCOTIC AGENT STATUS 12/26/2019 [facility], AVA Ot Z88.8 ALLERGY STATUS TO OTH DRUG/MEDS/BIOL SUB 12/26/2019 [facility], AVA Ot Z91.040 LATEX ALLERGY STATUS Procedures There is no data. Results Test Result Range [facility] - 02/26/17 15:42 Glucose, Serum 92 mg/dL [...] OF [place] 112 mL/min/1.73m2 > OR = 60 eGFR [...] Status Pt. Type Provider Facility Loc./Unit Complaint [id number] 12/01/2019 13:40:00 12/01/2019 23:59: 59 [facility] Outpatient LOPEZ SHULTZ [facility] [id number] 09/15/2019 13:30:00 Document Registration [id number] 05/21/2019 11:00:00 Document Registration [id number] 03/29/2018 12:00:00 Document Registration [id number] 03/15/2018 12:20:00 Document Registration [id number] 12/17/2017 15:00:00 Document Registration [id number] 05/21/2017 10:40:00 Document Registration [id number] 03/02/2017 08:00:00 Document Registration [id number] 02/26/2017 14:00:00 Document Registration [id number] 12/24/2019 06:57:00 08:25:00 DIS Outpatient AVA BALDWIN DO [facility] FS HEADACHES,BREATHING PRO BLEMS [id number] 10/27/2019 00:14:00 00:46:00 DIS Outpatient RASHID MCCORMICK, DIMPLE Wang [facility] FS LOWER BACK PAIN [id number] 08/16/2019 19:38:00 20:20:00 DIS Emergency MIKEL MCCORMICK, KINGS Silva [facility] FS NAUSEA/VOMITTING [id number] 07/11/2019 23:42:00 14:09:00 DIS Inpatient REYNALDO MCCORMICK, MINE Townsend [facility] 4TH SIGMOID DIVERTICULITIS [id number] 06/21/2019 11:52:00 12:48:00 DIS Emergency KEITH MCCORMICK, MINE Camilo [facility] FS BACK PAIN [id number] 03/09/2019 04:51:00 019 05:13:00 DIS Emergency KENNY , ROSSY L [facility] FS NAUSEA; HIVES; ITCHY TH ROAT [id number] 02/12/2019 04:51:00 019 06:32:00 DIS Emergency OLY HART DO [facility] FS BACK PAIN [id number] 01/01/2019 18:03:00 019 20:14:00 DIS Emergency EFRAÍN HANDLEY ROSSY L [facility] FS BLOODY STOOL; VOMITING [id number] 10/15/2018 07:26:00 019 09:10:00 DIS Outpatient SINGH MACARIO HANDLEY [facility] ENDO LUQ ABD PAIN/HX DIVERTI CULITIS [id number] 10/11/2018 11:00:00 019 12:39:00 DIS Outpatient MACARIO SINGH DO [facility] PREOP COLONOSCOPY [id number] 08/24/2018 00:30:00 019 13:30:00 DIS Inpatient RACHEL MOREIRA DO, V ia [facility] 4TH DIVERTICULITIS [id number] 08/17/2018 07:33:00 09:43:00 DIS Emergency REINA MCCORMICK, ETHAN Olvera [facility] FS LT SIDE PAIN [id number] 12/18/2017 09:19:00 018 23:59:59 CLS Outpatient BRYSON SHEPHERD APRN [facility] RAD SCREENING FOR B REAST CANCER [id number] 11/27/2017 06:43:00 018 09:10:00 DIS Outpatient SINGH MACARIO HANDLEY [facility] ENDO HX DIVERTICULTITIS/ 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/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 [id number] 11/20/2017 05:37:00 018 09:54:00 DIS Outpatient SINGH MACARIO HANDLEY [facility] PREOP COLONOSCOPY/EGD [id number] 11/09/2017 20:00:00 018 23:59:59 CLS Preadmit BRYSON SHEPHERD APRN [facility] SLEEP HYPERSOMNIA, UNSPECIFIE D G47.10 [id number] 09/17/2013 06:00:00 014 09:30:00 DIS Outpatient LEONARD SOSA MD [facility] MENORRHAGIA;CHR ONIC PELVIC PAIN;ENDOMETRIOSIS [id number] 09/15/2013 09:54:00 014 23:59:59 CLS Outpatient LEONARD SOSA MD [facility] PREOP MENORRHAGIA;CHR ONIC PELVIC PAIN;ENDOMETRIOSIS
[2019-12-28] MEDS ORDERED: NS IV 1000 ML 1,000 ML IV STA (18:30)
--- NOTE | 2019-12-28 18:39 | ED Abdominal Pain ---
General Chief Complaint: Abdominal/GI Problems Stated Complaint: ABD PAIN Source of Information: Patient, RN/MD Exam Limitations: No Limitations History of Present Illness Date Seen by Provider: Dec 28, 2019 Time Seen by Provider: 18:25 Initial Comments This patient is a 34-year-old female presents to the emergency department complaining of lower abdominal pain. Patient is had multiple surgeries in the past. Does have chronic issues with abdominal pain. Patient states that it hurts in her peritoneal area and her rectal area. Patient denies constipation. Patient states her home tramadol did not help with her pain. Vital signs are stable do medical evaluation treatment is needed. Patient reportedly has a history of Crohn's disease. Patient is ALSO had a hysterectomy. Timing/Duration: 1 Hour Location: [facility] Allergies and Home Medications Allergies Coded Allergies: buspirone (Verified Allergy, Intermediate, SEVERE ANXIETY, 11/27/17) aripiprazole (Verified Allergy, Unknown, Heart racing, 08/24/18) bismuth subsalicylate (Unverified Allergy, Unknown, NAUSEA, 11/27/17) latex (Unverified Allergy, Unknown, RASH, 11/27/17) meperidine (Unverified Allergy, Unknown, RASH, 11/27/17) promethazine (Unverified Allergy, Unknown, DIFFICULTY BREATHING, 11/27/17) Uncoded Allergies: TAPE (Adverse Reaction, Unknown, RASH, 09/15/13) Home Medications Albuterol Sulfate 0.63 Mg/3 Ml Vial.neb, 0.63 MG IH PRN, (Reported) Albuterol Sulfate 1 Puff Puff, 2 PUFF IH Q4H PRN for COUGH, (Reported) 1 PUFF = 90 MCG Albuterol Sulfate 2.5 Mg/3 Ml Vial.neb, 2 PUFF IH Q4H, (Reported) Albuterol Sulfate 1 Puff Puff, 2 PUFF IH Q4H 1 PUFF = 90 MCG Prescribed by: AVA BALDWIN on 12/24/19 075 Atorvastatin Calcium 20 Mg Tablet, 20 MG PO HS, (Reported) Brexpiprazole 4 Mg Tablet, 4 MG PO DAILY, (Reported) Bupropion HCl 150 Mg Tablet.er, 150 MG PO BID, (Reported) Cephalexin 500 Mg Capsule, 500 MG PO TID Prescribed by: MINE JACOBS on 07/13/19 1157 Cyclobenzaprine HCl 10 Mg Tablet, 10 MG PO TID PRN for PAIN-MODERATE (5-7), (Reported) Fluticasone Propionate 9.9 Ml [place].susp, 1 SPRAY NS DAILY, (Reported) 1 SPRAY EACH NARE DAILY Hydrocodone/Acetaminophen 1 Each Tablet, 1 TAB PO Q6H Prescribed by: KINGS MORIN on 08/16/192014 Ibuprofen 800 Mg Tablet, 800 MG PO Q8H PRN for PAIN Prescribed by: OLY HART on 02/12/19 0621 Ondansetron 4 Mg Tab.rapdis, 4 MG PO Q6H PRN for NAUSEA/VOMITING Prescribed by: ROSSY KENNY on 01/01/192005 Ondansetron 4 Mg Tab.rapdis, 4 MG PO Q6H Prescribed by: KINGS MORIN on 08/16/192014 Oxcarbazepine 300 Mg Tablet, 900 MG PO MORNING AND EVENING, (Reported) Oxcarbazepine 300 Mg Tablet, 600 MG PO AFTERNOON, (Reported) Pantoprazole Sodium 40 Mg Tablet.dr, 40 MG PO DAILY, (Reported) Prednisone 20 Mg Tab, 60 MG PO DAILY Prescribed by: AVA BALDWIN on 12/24/19 0753 Tramadol HCl 50 Mg Tablet, 50 MG PO Q6H PRN for PAIN-MILD TO MODERATE, (Reported) Patient Home Medication List Home Medication List Reviewed: Yes Review of Systems Review of Systems Constitutional: No no symptoms reported; see HPI; No chills, No diaphoresis, No dizziness, No fever, No malaise, No weakness, No weight gain, No weight loss, No other EENTM: No No Symptoms Reported, No See HPI, No Blurred Vision, No Double Vision, No Eye Pain, No Eye Tearing, No Ear Drainage, No Ear Pain, No Mouth Pain, No Mouth Swelling, No Nose Congestion, No Nose Pain, No Throat Pain, No Throat Swelling, No Other Respiratory: Denies No Symptoms Reported, Denies See HPI, Denies Cough, Denies Orthopnea, Denies Shortness of Air, Denies SOA With Exertion, Denies SOA at Rest, Denies Stridor, Denies Wheezing, Denies Other Cardiovascular: Denies No Symptoms Reported, Denies See HPI, Denies Chest Pain, Denies Edema, Denies Irregular Heart Rate, Denies Lightheadedness, Denies Palpitations, Denies Syncope, Denies Other Gastrointestinal: Denies No Symptoms Reported; See HPI; Denies Abdomen Distended; Abdominal Pain; Denies Blood Streaked Stools, Denies Constipated, Denies Diarrhea, Denies Difficulty Swallowing, Denies Nausea, Denies Poor Appetite, Denies Poor Fluid Intake, Denies Rectal Bleeding, Denies Vomiting, Denies Other Genitourinary: Denies No Symptoms Reported, Denies See HPI, Denies Burning, Denies Discharge, Denies Drainage, Denies Frequency, Denies Flank Pain, Denies Hematuria, Denies Incontinence, Denies Pain, Denies Urgency, Denies Other Musculoskeletal: No no symptoms reported, No see HPI, No back pain, No gout, No joint pain, No joint swelling, No muscle pain, No muscle stiffness, No muscle cramps, No muscle twitching, No muscle weakness, No neck pain, No other Skin: No no symptoms reported, No see HPI, No change in color, No change in hair/nails, No dryness, No hx of skin cancer, No lesions, No lumps, No pruritus, No rash, No other All Other Systems Reviewed Negative Unless Noted: Yes Past Vvduvwq-Xdyllg-Uwscgx Hx Patient Social History Type Used: Cigarettes Former Smoker, Quit: Aug 12, 2018 2nd Hand Smoke Exposure: No Recent Hopitalizations: No Immunizations Up To Date Tetanus Booster (TDap): Unknown Seasonal Allergies Seasonal Allergies: No Past Medical History Surgeries: Yes (EGD's, Colonoscopys, D&C, colon resection) Abdominal, Cystectomy, Hysterectomy Respiratory: Yes Asthma, Sleep Apnea, COPD Currently Using CPAP: No Currently Using BIPAP: No Cardiac: Yes High Cholesterol Neurological: No Reproductive Disorders: No Female Reproductive Disorders: Denies [employer]TING [employer]ONING History: Hysterectomy Sexually Transmitted Disease: No HIV/AIDS: No Genitourinary: Yes Kidney Stones Gastrointestinal: Yes Gastroesophageal Reflux, Crohns Disease, Diverticulosis, Esophagitis Musculoskeletal: Yes Arthritis, Chronic Back Pain Endocrine: Yes (DM Type II, Morbid Obesity) Diabetes, Non-Insulin dep HEENT: No Loss of Vision: Bilateral Hearing Impairment: Denies Cancer: No Psychosocial: Yes Anxiety, Bipolar, Depression Integumentary: No Blood Disorders: No Adverse Reaction/Blood Tranf: No (HAS HAD BLOOD WITH NO REACTION) Physical Exam Vital Signs Vital Signs - First Documented 12/28/19 18:25 Temp 35.9 Pulse 102 Resp 20 B/P (MAP) 134/78 (96) Pulse Ox 96 O2 Delivery Room Air Capillary Refill : Height/Weight/BMI Height: 5'4.00" Weight: 262lbs. 0oz. 118.435109gi; 45.00 BMI Method:Stated General Appearance: WD/WN, no apparent distress Respiratory: chest non-tender, lungs clear, normal breath sounds, no respiratory distress, no accessory muscle use Cardiovascular: normal peripheral pulses, regular rate, rhythm, no edema, no gallop, no JVD, no murmur Gastrointestinal: normal bowel sounds, non tender, soft, no organomegaly, no pulsatile mass Back: normal inspection, no CVA tenderness Skin: normal color, warm/dry Progress/Results/Core Measures Results/Orders Lab Results Laboratory Tests Test 12/28/19 18:25 12/28/19 18:50 Range/Units Urine Color YELLOW Urine Clarity SLT CLOUDY Urine pH 6.0 5-9 Urine Specific [place] 1.025 H 1.016-1.022 Urine Protein NEGATIVE NEGATIVE Urine Glucose (UA) NEGATIVE NEGATIVE Urine Ketones NEGATIVE NEGATIVE Urine Nitrite NEGATIVE NEGATIVE Urine Bilirubin NEGATIVE NEGATIVE Urine Urobilinogen 0.2 < = 1.0 MG/DL Urine Leukocyte Esterase NEGATIVE NEGATIVE Urine RBC (Auto) NEGATIVE NEGATIVE Urine RBC NONE /HPF Urine WBC 0-2 /HPF Urine Squamous Epithelial Cells 0-2 /HPF Urine Crystals PRESENT H /LPF Urine Amorphous Sediment FEW MARIO URATES H /LPF Urine Bacteria FEW H /HPF Urine Casts NONE /LPF Urine Mucus NEGATIVE /LPF Urine Culture Indicated NO Urine Opiates Screen NEGATIVE NEGATIVE Urine Oxycodone Screen NEGATIVE NEGATIVE Urine Methadone Screen NEGATIVE NEGATIVE Urine Propoxyphene Screen NEGATIVE NEGATIVE Urine Barbiturates Screen NEGATIVE NEGATIVE Ur Tricyclic Antidepressants Screen NEGATIVE NEGATIVE Urine Phencyclidine Screen NEGATIVE NEGATIVE Urine Amphetamines Screen NEGATIVE NEGATIVE Urine Methamphetamines Screen NEGATIVE NEGATIVE Urine Benzodiazepines Screen NEGATIVE NEGATIVE Urine Cocaine Screen NEGATIVE NEGATIVE Urine Cannabinoids Screen NEGATIVE NEGATIVE White Blood Count 12.3 H 4.3-11.0 10^3/uL Red Blood Count 5.36 4.35-5.85 10^6/uL Hemoglobin 14.8 11.5-16.0 G/DL Hematocrit 45 35-52 % Mean Corpuscular Volume 83 80-99 FL Mean Corpuscular Hemoglobin 28 25-34 PG Mean Corpuscular Hemoglobin Concent 33 32-36 G/DL Red Cell Distribution Width 14.9 H 10.0-14.5 % Platelet Count 282 130-400 10^3/uL Mean Platelet Volume 9.9 7.4-10.4 FL Neutrophils (%) (Auto) 57 42-75 % Lymphocytes (%) (Auto) 32 12-44 % Monocytes (%) (Auto) 7 0-12 % Eosinophils (%) (Auto) 4 0-10 % Basophils (%) (Auto) 1 0-10 % Neutrophils # (Auto) 7.0 1.8-7.8 X 10^3 Lymphocytes # (Auto) 3.9 1.0-4.0 X 10^3 Monocytes # (Auto) 0.8 0.0-1.0 X 10^3 Eosinophils # (Auto) 0.4 H 0.0-0.3 10^3/uL Basophils # (Auto) 0.1 0.0-0.1 10^3/uL Sodium Level 139 135-145 MMOL/L Potassium Level 3.9 3.6-5.0 MMOL/L Chloride Level 103 98-107 MMOL/L Carbon Dioxide Level 24 21-32 MMOL/L Anion Gap 12 5-14 MMOL/L Blood Urea Nitrogen 8 7-18 MG/DL Creatinine 0.71 0.60-1.30 MG/DL Estimat Glomerular Filtration Rate > 60 BUN/Creatinine Ratio 11 Glucose Level 120 H 70-105 MG/DL Calcium Level 8.8 8.5-10.1 MG/DL Corrected Calcium 8.5-10.1 MG/DL Total Bilirubin 0.2 0.1-1.0 MG/DL Aspartate Amino Transf (AST/SGOT) 25 5-34 U/L Alanine Aminotransferase (ALT/SGPT) 40 0-55 U/L Alkaline Phosphatase 56 40-136 U/L Total Protein 6.8 6.4-8.2 GM/DL Albumin 3.9 3.2-4.5 GM/DL Lipase 35 8-78 U/L My Orders Orders - DIMPLE MIKE MD Drug Screen Stat (Urine) (12/28/19 18:30) Urinalysis (12/28/19 18:30) Abdomen Flat & Upright/Decub (12/28/19 18:30) Cbc With Automated Diff (12/28/19 18:30) Comprehensive Metabolic Panel (12/28/19 18:30) Lipase (12/28/19 18:30) Ns Iv 1000 Ml (Sodium Chloride 0.9%) (12/28/19 18:30) Ketorolac Injection (Toradol Injection) (12/28/19 19:45) Ondansetron Injection (Zofran Injectio (12/28/19 19:45) Vital Signs/I&O 12/28/19 18:25 Temp 35.9 Pulse 102 Resp 20 B/P (MAP) 134/78 (96) Pulse Ox 96 O2 Delivery Room Air Progress Progress Note : Time: 19:43 Progress Note Patient appears to have constipation patient does not appear to be acutely in pain. I did discuss at length with patient about her medical history and did offer the patient a CT scan of the abdomen and the patient has declined. Patient is requesting pain medications again. Patient states her tramadol says she takes at home did not help. I did discuss with the different options. Advised the patient I would not prescribe any narcotic pain medications the patient would have discuss pain medication changes with her PCP who prescribes to tramadol. Patient requests a Toradol shot in the emergency department. Patient states understanding of NSAIDs and GI problems. Possible bleeding is possible. Patient states she understands the risk and requests Toradol. Patient be given instructions on how to take care of constipation. Patient be discharged home. Encourage by mouth fluids. Advance diet as tolerated. May take Senokot [id number] to help relieve constipation related to narcotic medications. Patient also been taking MiraLAX [id number]-rug-mwheapb 1 packet twice daily. May also makes a Brown Cow by mixing 4 ounces of prune juice with 2 ounces of milk of magnesium and 1 tablespoon assaulted butter. Patient is to take this warm. Follow-up with PCP in 2-3 days. Patient may continue her Bentyl at home. Patient is understand that tramadol does cause constipation. Departure Impression Primary Impression: Abdominal pain Additional Impression: Constipation Disposition: 01 HOME, SELF-CARE Condition: Stable Departure-Patient Inst. Decision time for Depature: 19:46 Referrals: [facility] (PCP) Primary Care Physician LOPEZ SHULTZ APRN (Family) Primary Care Physician Patient Instructions: Constipation, Adult (DC) Add. Discharge Instructions: Encourage by mouth fluids. Advance diet as tolerated. May take Senokot [id number]-dguhhjo to help relieve constipation related to narcotic medications. Patient also been taking MiraLAX zrsl-vzx-shzrear 1 packet twice daily. May also makes a Brown Cow by mixing 4 ounces of prune juice with 2 ounces of milk of magnesium and 1 tablespoon assaulted butter. Patient is to take this warm. Follow-up with PCP in 2-3 days. Patient may continue her Bentyl at home. Patient is understand that tramadol does cause constipation. All discharge instructions reviewed with patient and/or family. Voiced understanding. Scripts Sennosides/Docusate Sodium (Senna-S 8.6-50 mg Tablet) 1 Each Tablet 1 EACH PO BID, #30 TAB 0 Refills Prov: DIMPLE MIKE MD 12/28/19 DIMPLE MIKE MD Dec 28, 2019 18:38
[2019-12-28 18:50] LABS: BACTERIA,URINE FEW /HPF; BILIRUBIN,URINE NEGATIVE (NEGATIVE); CLARITY,URINE SLT CLOUDY; COLOR,URINE YELLOW; GLUCOSE, URINE (UA) NEGATIVE (NEGATIVE); KETONES,URINE NEGATIVE (NEGATIVE); LEUKOCYTE ESTERASE ,URINE NEGATIVE (NEGATIVE); NITRITE,URINE NEGATIVE (NEGATIVE); PROTEIN,URINE NEGATIVE (NEGATIVE); WBC,URINE 0-2 /HPF
[2019-12-28 18:51] LABS: AMORPHOUS SEDIMENT,UR FEW AMOR URATES /LPF; SQUAMOUS EPITHELIAL CELL,UR 0-2 /HPF
[2019-12-28 18:54] LABS: AMPHETAMINE SCREEN, URINE NEGATIVE (NEGATIVE); BARBITURATE SCREEN URINE NEGATIVE (NEGATIVE); BENZODIAZEPINES SCREEN URINE NEGATIVE (NEGATIVE); CANNABINOID SCREEN, URINE NEGATIVE (NEGATIVE); COCAINE SCREEN URINE NEGATIVE (NEGATIVE); METHADONE STAT NEGATIVE (NEGATIVE); METHAMPHETAMINE SCREEN URINE S NEGATIVE (NEGATIVE); OPIATE SCREEN URINE NEGATIVE (NEGATIVE); OXYCODONE STAT NEGATIVE (NEGATIVE); PROPOXYPHENE STAT NEGATIVE (NEGATIVE); TRICYCLIC ANTIDEPRESSANTS SCRE NEGATIVE (NEGATIVE)
[2019-12-28 19:00] LABS: HEMATOCRIT 45 % (35-52); HEMOGLOBIN 14.8 G/DL (11.5-16.0); MEAN CORPUSCULAR HEMOGLOBIN 28 PG (25-34); MEAN CORPUSCULAR HGB CONC 33 G/DL (32-36); MEAN CORPUSCULAR VOLUME 83 FL (80-99); PLATELET COUNT 282 10^3/uL (130-400); RED CELL DISTRIBUTION WIDTH 14.9 % (10.0-14.5); WHITE BLOOD COUNT 12.3 10^3/uL (4.3-11.0)
[2019-12-28 19:01] LABS: BASOPHILS % (AUTO) 1 % (0-10); EOSINOPHILS % (AUTO) 4 % (0-10); LYMPHOCYTES % (AUTO) 32 % (12-44); MEAN PLATELET VOLUME 9.9 FL (7.4-10.4); MONOCYTES % (AUTO) 7 % (0-12); NEUTROPHILS % (AUTO) 57 % (42-75)
[2019-12-28 19:02] LABS: BASOPHILS # (AUTO) 0.1 10^3/uL (0.0-0.1); EOSINOPHILS # (AUTO) 0.4 10^3/uL (0.0-0.3); LYMPHOCYTES # (AUTO) 3.9 X 10^3 (1.0-4.0); MONOCYTES # (AUTO) 0.8 X 10^3 (0.0-1.0)
--- NOTE | 2019-12-28 19:21 | Diagnostic Imaging Report ---
INDICATION: Abdominal pain. EXAMINATION: Supine erect abdomen at 7:02 p.m. Supine and erect views were obtained. FINDINGS: There is some gas in both the large and small bowel in a nonspecific fashion. This appearance is similar to the prior exam of 01/01/2019. There is no evidence for a bowel obstruction. Also as on the prior exam there is a fair amount of fecal material in the ascending colon and at least a moderate amount of fecal material in the transverse and descending colon. There is no mass, organomegaly or pathological calcification evident. Surgical clips are again seen in the right upper quadrant. The osseous structures are intact. IMPRESSION: 1. The bowel gas pattern is nonspecific. There is no acute abnormality identified. 2. There is a fair amount of fecal material in the ascending colon and at least a moderate amount of fecal material in the transverse and descending colon. Dictated by: Dictated on workstation # [id number]
[2019-12-28 19:26] LABS: ALANINE AMINOTRANSFERASE 40 U/L (0-55); ALBUMIN 3.9 GM/DL (3.2-4.5); ALKALINE PHOSPHATASE 56 U/L (40-136); BILIRUBIN,TOTAL 0.2 MG/DL (0.1-1.0); BUN/CREATININE RATIO 11; CALCIUM 8.8 MG/DL (8.5-10.1); CARBON DIOXIDE 24 MMOL/L (21-32); CHLORIDE 103 MMOL/L (98-107); CREATININE SERUM 0.71 MG/DL (0.60-1.30); GFR ESTIMATED > 60; GLUCOSE 120 MG/DL (70-105); POTASSIUM 3.9 MMOL/L (3.6-5.0); SODIUM 139 MMOL/L (135-145); TOTAL PROTEIN 6.8 GM/DL (6.4-8.2)
[2019-12-28 19:27] LABS: LIPASE 35 U/L (8-78)
--- NOTE | 2019-12-28 19:42 | NUR ---
Patient declined an abdominal CT
[2019-12-28] MEDS ORDERED: KETOROLAC 60 MG/2 ML VIAL IV ONE (19:45)
[2019-12-28] MEDS ORDERED: ONDANSETRON 4 MG/2 ML (SDV) Z0FRAN IVP ONE (19:45)
[2019-12-28] MEDS ORDERED: SENN-273 PO (19:46)
[2019-12-28 19:54] VITALS: BP 127/42
[2019-12-28] MEDS ORDERED: KETOROLAC 30 MG/ML VIAL IVP ONE (20:00)
== END 2019-12-28 19:54 | disposition home or self-care (01) ==
LOC: EDUNIT# 18:19 → ER FS 18:20
DX: K59.00 Constipation, unspecified (principal); J44.9 Chronic obstructive pulmonary disease, unspecified; E78.00 Pure hypercholesterolemia, unspecified; K21.0 Gastro-esophageal reflux disease with esophagitis; E66.01 Morbid (severe) obesity due to excess calories; F41.9 Anxiety disorder, unspecified; F31.9 Bipolar disorder, unspecified; E11.9 Type 2 diabetes mellitus without complications; G89.29 Other chronic pain; M54.9 Dorsalgia, unspecified; Z79.891 Long term (current) use of opiate analgesic; Z88.5 Allergy status to narcotic agent; Z88.8 Allergy status to other drugs, medicaments and biological substances; Z68.42 Body mass index [BMI] 45.0-49.9, adult; Z91.040 Latex allergy status; Z79.51 Long term (current) use of inhaled steroids; Z87.891 Personal history of nicotine dependence; Z87.19 Personal history of other diseases of the digestive system
CPT/HCPCS: 36415; 74019; 80053; 80306; 81000; 83690; 85025

== ENCOUNTER 2020-01-04 22:39 | Emergency (ER) | payer MEDICAID ==
[~2020-01-04] VITALS: Ht 162.6 cm; Wt 135.4 kg
[~2020-01-04 22:39] MED LIST changes: +SENN-273 PO
--- NOTE | 2020-01-04 22:44 | ED General ---
General Stated Complaint: SORE/NAUSEAA Source of Information: Patient History of Present Illness Date Seen by Provider: Jan 04, 2020 Time Seen by Provider: 22:45 Initial Comments Patient is a 34 y/o female who comes to the ER today c/o that she feels she may have thrush. C/o irritation and burning of the oral mucosa as well as gingival tissue, particularly around lower incisors. She does not have diabetes but has prior hx of gestational diabetes which is when she last had an episode of thrush. At that time, she relates she had a severe allergic reaction to nystatin liquid. Patient also has known poor dentition and has dental appointments pending for dental extraction. No fever or other recent illness. She checked her blood glucose this afternoon and reports it was 87 and that she checks it daily and it normally is in the 80's. She c/o burning discomfort in the mouth. Allergies and Home Medications Allergies Coded Allergies: buspirone (Verified Allergy, Intermediate, SEVERE ANXIETY, 11/27/17) aripiprazole (Verified Allergy, Unknown, Heart racing, 08/24/18) bismuth subsalicylate (Unverified Allergy, Unknown, NAUSEA, 11/27/17) latex (Unverified Allergy, Unknown, RASH, 11/27/17) meperidine (Unverified Allergy, Unknown, RASH, 11/27/17) promethazine (Unverified Allergy, Unknown, DIFFICULTY BREATHING, 11/27/17) Uncoded Allergies: TAPE (Adverse Reaction, Unknown, RASH, 09/15/13) Home Medications Albuterol Sulfate 0.63 Mg/3 Ml Vial.neb, 0.63 MG IH PRN, (Reported) Albuterol Sulfate 1 Puff Puff, 2 PUFF IH Q4H PRN for COUGH, (Reported) 1 PUFF = 90 MCG Albuterol Sulfate 2.5 Mg/3 Ml Vial.neb, 2 PUFF IH Q4H, (Reported) Albuterol Sulfate 1 Puff Puff, 2 PUFF IH Q4H 1 PUFF = 90 MCG Prescribed by: AVA BALDWIN on 12/24/19 0753 Atorvastatin Calcium 20 Mg Tablet, 20 MG PO HS, (Reported) Brexpiprazole 4 Mg Tablet, 4 MG PO DAILY, (Reported) Bupropion HCl 150 Mg Tablet.er, 150 MG PO BID, (Reported) Cephalexin 500 Mg Capsule, 500 MG PO TID Prescribed by: MINE JACOBS on 07/13/19 115 Clindamycin HCl 300 Mg Capsule, 300 MG PO QID Prescribed by: DIMPLE NGUYEN on 01/04/202256 Cyclobenzaprine HCl 10 Mg Tablet, 10 MG PO TID PRN for PAIN-MODERATE (5-7), (Reported) Fluconazole 200 Mg Tablet, 200 MG PO DAILY Prescribed by: DIMPLE NGUYEN on 01/04/202256 Fluticasone Propionate 9.9 Ml [place].susp, 1 SPRAY NS DAILY, (Reported) 1 SPRAY EACH NARE DAILY Hydrocodone/Acetaminophen 1 Each Tablet, 1 TAB PO Q6H Prescribed by: KINGS MORIN on 08/16/192014 Ibuprofen 800 Mg Tablet, 800 MG PO Q8H PRN for PAIN Prescribed by: OLY HART on 02/12/19620 Ondansetron 4 Mg Tab.rapdis, 4 MG PO Q6H PRN for NAUSEA/VOMITING Prescribed by: ROSSY KENNY on 01/01/192005 Ondansetron 4 Mg Tab.rapdis, 4 MG PO Q6H Prescribed by: KINGS MORIN on 08/16/192014 Oxcarbazepine 300 Mg Tablet, 900 MG PO MORNING AND EVENING, (Reported) Oxcarbazepine 300 Mg Tablet, 600 MG PO AFTERNOON, (Reported) Pantoprazole Sodium 40 Mg Tablet.dr, 40 MG PO DAILY, (Reported) Prednisone 20 Mg Tab, 60 MG PO DAILY Prescribed by: AVA BALDWIN on 12/24/19 075 Sennosides/Docusate Sodium 1 Each Tablet, 1 EACH PO BID Prescribed by: DIMPLE MIKE on 12/28/191945 Tramadol HCl 50 Mg Tablet, 50 MG PO Q6H PRN for PAIN-MILD TO MODERATE, (Reported) Patient Home Medication List Home Medication List Reviewed: Yes Review of Systems Review of Systems Constitutional: no symptoms reported EENTM: see HPI Respiratory: no symptoms reported Cardiovascular: no symptoms reported Gastrointestinal: no symptoms reported Musculoskeletal: no symptoms reported Skin: no symptoms reported All Other Systems Reviewed Negative Unless Noted: Yes Past Wkvfjer-Stjpqb-Arsces Hx Patient Social History Type Used: Cigarettes Former Smoker, Quit: Aug 12, 2018 2nd Hand Smoke Exposure: No Recent Foreign Travel: No Contact w/Someone Who Travel: No Recent Hopitalizations: No Immunizations Up To Date Tetanus Booster (TDap): Unknown Seasonal Allergies Seasonal Allergies: No Past Medical History Surgeries: Yes (EGD's, Colonoscopys, D&C, colon resection) Abdominal, Cystectomy, Hysterectomy Respiratory: Yes Asthma, Sleep Apnea, COPD Currently Using CPAP: No Currently Using BIPAP: No Cardiac: Yes High Cholesterol Neurological: No Reproductive Disorders: No Female Reproductive Disorders: Denies [employer]PER[employer] History: Hysterectomy Sexually Transmitted Disease: No HIV/AIDS: No Genitourinary: Yes Kidney Stones Gastrointestinal: Yes Gastroesophageal Reflux, Crohns Disease, Diverticulosis, Esophagitis Musculoskeletal: Yes Arthritis, Chronic Back Pain Endocrine: Yes (DM Type II, Morbid Obesity) Diabetes, Non-Insulin dep HEENT: No Loss of Vision: Bilateral Hearing Impairment: Denies Cancer: No Psychosocial: Yes Anxiety, Bipolar, Depression Integumentary: No Blood Disorders: No Adverse Reaction/Blood Tranf: No (HAS HAD BLOOD WITH NO REACTION) Physical Exam Vital Signs Vital Signs - First Documented 01/04/20 22:52 Temp 36.4 Pulse 99 Resp 18 B/P (MAP) 151/92 (111) O2 Delivery Room Air Capillary Refill : Height, Weight, BMI Height: 5'4.00" Weight: 262lbs. 0oz. 118.843251ul; 51.00 BMI Method:Stated General Appearance: No Apparent Distress, WD/WN HEENT: PERRL/EOMI, TMs Normal, Other (oral mucosa is generally inflammed appearing but void of any white plaques. Visible posterior OP drainage from sinuses. Gingival tissue around front incisors and most remaining teeth appears severly inflamed with local infection and unhealthy tissue.) Respiratory: Lungs Clear Cardiovascular: Regular Rate, Rhythm Extremity: Normal Capillary Refill Neurologic/Psychiatric: Alert, Oriented x3 Progress/Results/Core Measures Suspected Sepsis SIRS Temperature: Pulse: Respiratory Rate: Blood Pressure / Mean: Results/Orders My Orders Orders - DIMPLE NGUYEN DO Clindamycin Capsule (Cleocin Capsule) (01/04/20 23:00) Fluconazole Tablet (Ed Only) (Diflucan T (01/04/20 23:00) Dexamethasone Oral Soln (Ed) (Decadron I (01/04/20 23:00) Vital Signs/I&O 01/04/20 22:52 Temp 36.4 Pulse 99 Resp 18 B/P (MAP) 151/92 (111) O2 Delivery Room Air Capillary Refill : Progress Note : Time: 23:10 Progress Note Patient is seen and examined on arrival to her room. Overall non-toxic appearing but with some inflamed oral mucosa generally. No white plaques. Extraordinarily poor dentition and with gingival tissue appearing borderline ANUG. In the ER, patient is started on clindamycin and PO diflucan. SHe is given a dose of decadron for symptom relief. Discharged home with Rx for diflucan 200 mg daily x 10 days. Also placed on clindamycin over the next ten days. Recommended to follow up with PCP and dentist at completion of antibiotic therapy. Departure Impression Primary Impression: Thrush Disposition: HOME, SELF-CARE Condition: Stable Departure-Patient Inst. Referrals: [facility]/ (PCP) Primary Care Physician LOPEZ SHULTZ APRN (Family) Primary Care Physician Scripts Clindamycin HCl (Clindamycin HCl) 300 Mg Capsule 300 MG PO QID for 10 Days, #40 CAP Prov: DIMPLE NGUYEN DO 01/04/20 Fluconazole (Fluconazole) 200 Mg Tablet 200 MG PO DAILY for 10 Days, #10 TAB Prov: DIMPLE NGUYEN DO 01/04/20 DIMPLE NGUYEN DO Jan 04, 2020 22:44
--- OUTSIDE RECORDS SUMMARY | 2020-01-04 22:48 | XMS REPORT | Continuity of Care Document ---
Author Organization Unknown Address Unknown Phone Unavailable Allergies Active Description Code Type Severity Reaction Onset Reported/Identified Relationship to Patient Clinical Status Yes TAPE TAPE Unknown RASH 09/15/2013 Yes buspirone [id number] Drug Allergy Moderate SEVERE ANXIETY 11/27/2017 Yes bismuth subsalicylate [id number] Drug Allergy Unknown NAUSEA 11/27/2017 Yes latex [id number] Drug Allergy Unknown RASH 11/27/2017 Yes meperidine [id number] Drug Allerg y Unknown RASH 11/27/2017 Yes promethazine [id number] Drug Allergy Unknown DIFFICULTY SANDI 11/27/2017 Yes aripiprazole [id number] Drug Allergy Unknown Heart racing 08/24/2018 Medications [...] INT W/O PERFORATION OR AB 11/27/2017 MACARIO SNIGH DO Ot Z79. 52 HEPATOLOGIST (CURRENT) USE OF SYSTEMIC STER 11/27/2017 MACARIO SINGH DO Ot Z79. 84 HEPATOLOGIST (CURRENT) USE OF ORAL HYPOGLYC 11/27/2017 MACARIO SINGH DO Ot Z79.899 OTHER CUSTODIAL (CURRENT) DRUG THERAPY 11/28/2017 MACARIO SINGH DO [...] 11/28/2017 MACARIO SINGH DO Ot Z79. 52 HEPATOLOGIST (CURRENT) USE OF SYSTEMIC STER 11/28/2017 MACARIO SINGH DO Ot Z79. 84 CUSTODIAL (CURRENT) USE OF ORAL HYPOGLYC 11/28/2017 MACARIO SINGH DO Ot Z79.899 OTHER HEPATOLOGIST (CURRENT) DRUG THERAPY 12/19/2017 BRYSON SHEPHERD APRN [...] 08/17/2018 ETHAN HUANG MD Ot Z79. 51 CUSTODIAL (CURRENT) USE OF INHALED STERO 08/17/2018 ETHAN HUANG MD Ot Z79. 52 HEPATOLOGIST (CURRENT) USE OF SYSTEMIC STER 08/17/2018 ETHAN HUANG MD Ot Z87. 19 PERSONAL HISTORY OF OTHER DISEASES OF TH 08/17/2018 ETHAN HUANG MD Ot Z87.442 PERSONAL HISTORY OF URINARY CALCULI 08/17/2018 ETHAN HUANG MD Ot Z87.891 PERSONAL HISTORY OF NICOTINE DEPENDENCE 08/17/2018 ETHAN HUANG MD Ot Z88. 8 ALLERGY STATUS TO [facility] DRUG/MEDS/BIOL SUB 08/17/2018 ETHAN HUANG MD Ot [...] 08/20/2018 ETHAN HUANG MD Ot Z79. 51 HEPATOLOGIST (CURRENT) USE OF INHALED STERO 08/20/2018 ETHAN HUANG MD Ot Z79. 52 CUSTODIAL (CURRENT) USE OF SYSTEMIC STER 08/20/2018 ETHAN [...] 10/15/2018 MACARIO SINGH DO Ot Z79. 84 CUSTODIAL (CURRENT) USE OF ORAL HYPOGLYC 10/15/2018 MACARIO SINGH DO Ot Z79.899 OTHER CUSTODIAL (CURRENT) DRUG THERAPY 10/18/2018 MACARIO SINGH DO [...] 10/18/2018 MACARIO SINGH DO Ot Z79. 84 HEPATOLOGIST (CURRENT) USE OF ORAL HYPOGLYC 10/18/2018 MACARIO SINGH DO Ot Z79.899 OTHER HEPATOLOGIST (CURRENT) DRUG THERAPY 01/01/2019 KENNY DO, ROSSY [...] KENNY DO, ROSSY L Ot Z79.5 1 CUSTODIAL (CURRENT) USE OF INHALED STERO 01/01/2019 EFRAÍN HANDLEY ROSSY L Ot Z79.8 4 HEPATOLOGIST (CURRENT) USE OF ORAL HYPOGLYC 01/01/2019 KENNY [...] V72.84 EXAM PRE-OPERATIVE NOS 01/01/2019 BRYSON SHEPHERD MATTING [employer]ESS TENDER Ot Z12.31 ENCNTR SCREEN MAMMOGRAM FOR MALIGNANT [...] KENNY DO, ROSSY L Ot Z79.5 1 CUSTODIAL (CURRENT) USE OF INHALED STERO 01/17/2019 KENNY DO, ROSSY L Ot Z79.8 4 HEPATOLOGIST (CURRENT) USE OF ORAL HYPOGLYC 01/17/2019 KENNY [...] ADULT 02/12/2019 OLY HART DO Ot Z79.84 HEPATOLOGIST (CURRENT) USE OF ORAL HYPOGLYC 02/12/2019 OLY [...] ADULT 02/14/2019 OLY HART DO, Ot Z79.84 CUSTODIAL (CURRENT) USE OF ORAL HYPOGLYC 02/14/2019 OLY [...] ADULT 02/14/2019 OLY HART DO, Ot Z79.84 HEPATOLOGIST (CURRENT) USE OF ORAL HYPOGLYC 02/14/2019 OLY [...] ADULT 02/19/2019 OLY HART DO, Ot Z79.84 CUSTODIAL (CURRENT) USE OF ORAL HYPOGLYC 02/19/2019 OLY [...] KENNY DO, ROSSY L Ot Z79.5 1 CUSTODIAL (CURRENT) USE OF INHALED STERO 03/09/2019 KENNY DO, ROSSY L Ot Z79.5 2 HEPATOLOGIST (CURRENT) USE OF SYSTEMIC STER 03/09/2019 KENNY DO, ROSSY L Ot Z79.8 4 HEPATOLOGIST (CURRENT) USE OF ORAL HYPOGLYC 03/09/2019 KENNY [...] KENNY DO, ROSSY L Ot Z79.5 1 CUSTODIAL (CURRENT) USE OF INHALED STERO 03/11/2019 KENNY DO, ROSSY L Ot Z79.5 2 CUSTODIAL (CURRENT) USE OF SYSTEMIC STER 03/11/2019 KENNY DO, ROSSY L Ot Z79.8 4 HEPATOLOGIST (CURRENT) USE OF ORAL HYPOGLYC 03/11/2019 KENNY [...] KEITH MCCORMICK, MINE Camilo Ot Z79. 51 CUSTODIAL (CURRENT) USE OF INHALED STERO 06/21/2019 MINE PARKER MD Ot Z79. 84 CUSTODIAL (CURRENT) USE OF ORAL HYPOGLYC 06/21/2019 KEITH [...] KEITH MCCORMICK, MINE Camilo Ot Z79. 51 HEPATOLOGIST (CURRENT) USE OF INHALED STERO 06/28/2019 KEITH MCCORMICK, MINE Camilo Ot Z79. 84 CUSTODIAL (CURRENT) USE OF ORAL HYPOGLYC 06/28/2019 KEITH [...] 07/13/2019 MINE JACOBS MD Ot Z79. 84 HEPATOLOGIST (CURRENT) USE OF ORAL HYPOGLYC 07/13/2019 MINE [...] 08/16/2019 KINGS MORIN MD Ot Z79. 51 CUSTODIAL (CURRENT) USE OF INHALED STERO 08/16/2019 KINGS [...] IN 10/29/2019 DIMPLE MIKE MD, Ot Z79.51 CUSTODIAL (CURRENT) USE OF INHALED STERO 10/29/2019 DIMPLE [...] J44.9 CHRONIC OBSTRUCTIVE PULMONARY DISEASE, U 12/26/2019 ROYAL OAK DO, AVA Ot J45.901 UNSPECIFIED ASTHMA WITH (ACUTE) EXACERBA 12/26/2019 ROYAL OAK DO, AVA Ot K21.0 GASTRO-ESOPHAGEAL REFLUX DISEASE WITH ES 12/26/2019 ROYAL OAK DO, AVA Ot M54.9 DORSALGIA, UNSPECIFIED 12/26/2019 ROYAL OAK DO, AVA Ot R51 HEADACHE 12/26/2019 ROYAL OAK DO, AVA Ot Z68.42 BODY MASS INDEX (BMI) 45.0-49.9, ADULT 12/26/2019 ROYAL OAK DO, AVA Ot Z79.51 CUSTODIAL (CURRENT) USE OF INHALED STERO 12/26/2019 ROYAL OAK DO, AVA Ot Z79.891 CUSTODIAL (CURRENT) USE OF OPIATE ANALGE 12/26/2019 ROYAL OAK DO, AVA Ot Z88.5 ALLERGY STATUS TO NARCOTIC AGENT STATUS 12/26/2019 [facility], AVA Ot Z88.8 ALLERGY STATUS TO OTH DRUG/MEDS/BIOL SUB 12/26/2019 ROYAL OAK DO, AVA Ot Z91.040 LATEX ALLERGY STATUS 12/31/2019 DIMPLE MIKE MD Ot E11.9 TYPE 2 DIABETES MELLITUS WITHOUT COMPLIC 12/31/2019 DIMPLE MIKE MD, Ot E66.01 MORBID (SEVERE) OBESITY DUE TO EXCESS CA 12/31/2019 DIMPLE MIKE MD Ot E78.00 PURE HYPERCHOLESTEROLEMIA, UNSPECIFIED 12/31/2019 DIMPLE MIKE MD, Ot F31.9 BIPOLAR DISORDER, UNSPECIFIED 12/31/2019 DIMPLE MIKE MD, Ot F41.9 ANXIETY DISORDER, UNSPECIFIED 12/31/2019 DIMPLE MIKE MD Ot G89.29 OTHER CHRONIC PAIN 12/31/2019 DIMPLE MIKE MD, Ot J44.9 CHRONIC OBSTRUCTIVE PULMONARY DISEASE, U 12/31/2019 DIMPLE MIKE MD, Ot K21.0 GASTRO-ESOPHAGEAL REFLUX DISEASE WITH ES 12/31/2019 DIMPLE MIKE MD, Ot K59.00 CONSTIPATION, UNSPECIFIED 12/31/2019 DIMPLE MIKE MD, Ot M54.9 DORSALGIA, UNSPECIFIED 12/31/2019 DIMPLE MIKE MD Ot R10.30 LOWER ABDOMINAL PAIN, UNSPECIFIED 12/31/2019 DIMPLE MIKE MD, Ot Z68.42 BODY MASS INDEX (BMI) 45.0-49.9, ADULT 12/31/2019 DIMPLE MIKE MD, Ot Z79.51 HEPATOLOGIST (CURRENT) USE OF INHALED STERO 12/31/2019 DIMPLE MIKE MD, Ot Z79.891 CUSTODIAL (CURRENT) USE OF OPIATE ANALGE 12/31/2019 DIMPLE MIKE MD, Ot Z87.19 PERSONAL HISTORY OF OTHER DISEASES OF TH 12/31/2019 DIMPLE MIKE MD, Ot Z87.891 PERSONAL HISTORY OF NICOTINE DEPENDENCE 12/31/2019 DIMPLE MIKE MD, Ot Z88.5 ALLERGY STATUS TO NARCOTIC AGENT STATUS 12/31/2019 DIMPLE MIKE MD, Ot Z88.8 ALLERGY STATUS TO OTH DRUG/MEDS/BIOL SUB 12/31/2019 DIMPLE MIKE MD, Ot Z91.040 LATEX ALLERGY [...] 7-25 CREATININE 0.70 mg/dL 0.50-1.10 eGFR NON-AFR. GAMBIAN 112 mL/min/1.73m2 > OR = 60 eGFR [...] RNA: NEGATIVE NRG MUÑOZ-SARS RNA: NEGATIVE NRG Complete urinalysis with reflex to cultu re - 12/28/19 18:25 Urine color determination YELLOW NRG Urine clarity determination SLT CLOUDY NRG Urine pH measurement by test strip 6.0 5-9 Specific gravity of urine by test strip 1.025 1.016-1.022 Urine protein assay by test strip, semi-quantitative NEGATIVE NEGATIVE Urine glucose detection by automated test strip NE GATIVE NEGATIVE Erythrocytes detection in urine sediment by light micr oscopy NEGATIVE NEGATIVE Urine ketones detection by automated test strip NE GATIVE NEGATIVE Urine nitrite detection by test strip NEGATIVE NEGATIVE Urine total bilirubin detection by test strip NEGA TIVE NEGATIVE Urine urobilinogen measurement by automated test strip (mass/volume) 0.2 mg/dL < = 1.0 Urine leukocyte esterase detection by dipstick NEG ATIVE NEGATIVE Automated urine sediment erythrocyte cou nt by microscopy (number/high power field) NONE NRG Automated urine sediment leukocyte count by microscopy (number/high power field) [HPF] NRG Bacteria detection in urine sediment by light microsco py FEW NRG Squamous epithelial cells detection in u rine sediment by light microscopy 0-2 NRG Crystals detection in urine sediment by light microsco py PRESENT NRG Casts detection in urine sediment by light microscopy NONE NRG Mucus detection in urine sediment by light microscopy NEGATIVE NRG Complete urinalysis with reflex to culture NO NRG Amorphous sediment detection in urine sediment by ligh t microscopy FEW MARIO URATES NRG Urine drug screening test - 12/28/19 18: 25 Urine phencyclidine detection by screening method NEGATIVE NEGATIVE Urine benzodiazepines detection by screening method NEGATIVE NEGATIVE Urine cocaine detection NEGATIVE NEGATI VE Urine amphetamines detection by screening method N EGATIVE NEGATIVE Urine methamphetamine detection by screening method NEGATIVE NEGATIVE Urine cannabinoids detection by screening method N EGATIVE NEGATIVE Urine opiates detection by screening method NEGATI VE NEGATIVE Urine barbiturates detection NEGATIVE N EGATIVE Screening urine tricyclic antidepressants detection NEGATIVE NEGATIVE Urine methadone detection by screening method NEGA TIVE NEGATIVE Urine oxycodone detection NEGATIVE NEGA TIVE Urine propoxyphene detection NEGATIVE N EGATIVE Complete blood count (CBC) with automate d white blood cell (WBC) differential - 12/28/19 18:50 Blood leukocytes automated count (number/volume) 12.3 10*3/uL 4.3-11.0 Blood erythrocytes automated count (number/volume) 5.36 10*6/uL 4.35-5.85 Venous blood hemoglobin measurement (mass/volume) 14.8 g/dL 11.5-16.0 Blood hematocrit (volume fraction) 45 % 35-52 Automated erythrocyte mean corpuscular volume 83 [ foz_us] 80-99 Automated erythrocyte mean corpuscular h emoglobin (mass per erythrocyte) 28 pg 25-34 Automated erythrocyte mean corpuscular h emoglobin concentration measurement (mass/volume) 33 g/dL 32-36 Automated erythrocyte distribution width ratio 14. 9 % 10.0- 14.5 Automated blood platelet count (count/volume) 282 10*3/uL 130-400 Automated blood platelet mean volume measurement 9.9 [foz_us] 7.4-10.4 Automated blood neutrophils/100 leukocytes 57 % 42-75 Automated blood lymphocytes/100 leukocytes 32 % 12-44 Blood monocytes/100 leukocytes 7 % 0-12 Automated blood eosinophils/100 leukocytes 4 % 0-10 Automated blood basophils/100 leukocytes 1 % 0-10 Blood neutrophils automated count (number/volume) 7.0 10*3 1.8-7.8 Blood lymphocytes automated count (number/volume) 3.9 10*3 1.0-4.0 Blood monocytes automated count (number/volume) 0. 8 10*3 0.0-1.0 Automated eosinophil count 0.4 10*3/uL 0 .0-0.3 Automated blood basophil count (count/volume) 0.1 10*3/uL 0.0-0.1 Comprehensive metabolic panel - 12/28/19 18:50 Serum or plasma sodium measurement (moles/volume) 139 mmol/L 135-145 Serum or plasma potassium measurement (moles/volume) 3.9 mmol/L 3.6-5.0 Serum or plasma chloride measurement (moles/volume) 103 mmol/L 98-107 Carbon dioxide 24 mmol/L 21-32 Serum or plasma anion gap determination (moles/volume) 12 mmol/L 5-14 Serum or plasma urea nitrogen measurement (mass/volume ) 8 mg/dL 7-18 Serum or plasma creatinine measurement (mass/volume) 0.71 mg/dL 0.60-1.30 Serum or plasma urea nitrogen/creatinine mass ratio 11 NRG Serum or plasma creatinine measurement w ith calculation of estimated glomerular filtration rate > NRG Serum or plasma glucose measurement (mass/volume) 120 mg/dL 70-105 Serum or plasma calcium measurement (mass/volume) 8.8 mg/dL 8.5-10.1 Serum or plasma total bilirubin measurement (mass/volu me) 0.2 mg/dL 0.1-1.0 Serum or plasma alkaline phosphatase gabrielle surement (enzymatic activity/volume) 56 U/L 40-136 Serum or plasma aspartate aminotransfera se measurement (enzymatic activity/volume) 25 U/L 5-34 Serum or plasma alanine aminotransferase measurement (enzymatic activity/volume) 40 U/L 0-55 Serum or plasma protein measurement (mass/volume) 6.8 g/dL 6.4-8.2 Serum or plasma albumin measurement (mass/volume) 3.9 g/dL 3.2-4.5 Lipase - 12/28/19 18:50 Lipase 35 U/L 8-78 Encounters ACCT No. Visit Date/Time Discharge Status Pt. Type Provider Facility Loc./Unit Complaint [id number] 12/01/2019 13:40:00 12/01/2019 23:59: 59 [facility] [id number] 09/15/2019 13:30:00 Document Registration [id number] 05/21/2019 11:00:00 Document Registration [id number] 03/29/2018 12:00:00 Document Registration [id number] 03/15/2018 12:20:00 Document Registration [id number] 12/17/2017 15:00:00 Document Registration [id number] 05/21/2017 10:40:00 Document Registration [id number] 03/02/2017 08:00:00 Document Registration [id number] 02/26/2017 14:00:00 Document Registration [id number] 12/28/2019 18:20:00 19:54:00 DIS Outpatient DIMPLE MIKE MD [facility] ER FS ABD PAIN [id number] 12/24/2019 06:57:00 08:25:00 DIS Outpatient AVA BALDWIN DO [facility] ER FS HEADACHES,BREATHING PRO BLEMS [id number] 10/27/2019 00:14:00 00:46:00 DIS Outpatient DIMPLE MIKE MD [facility] ER FS LOWER BACK PAIN [id number] 08/16/2019 19:38:00 20:20:00 DIS Emergency KINGS MORIN MD [facility] ER FS NAUSEA/VOMITTING [id number] 07/11/2019 23:42:00 14:09:00 DIS Inpatient REYNALDO MCCORMICK, MINE Townsend [facility] 4TH SIGMOID DIVERTICULITIS [id number] 06/21/2019 11:52:00 12:48:00 DIS Emergency KEITH MCCORMICK, MINE Camilo [facility] ER FS BACK PAIN [id number] 03/09/2019 04:51:00 019 05:13:00 DIS Emergency EFRAÍN HANDLEY ROSSY L [facility] ER FS NAUSEA; HIVES; ITCHY TH ROAT [id number] 02/12/2019 04:51:00 06:32:00 DIS Emergency OLY HART DO [facility] ER FS BACK PAIN [id number] 01/01/2019 18:03:00 20:14:00 DIS Emergency ROSSY KENNY DO [facility] ER FS BLOODY STOOL; VOMITING [id number] 10/15/2018 07:26:00 09:10:00 DIS Outpatient SINGH MACARIO HANDLEY [facility] ENDO LUQ ABD PAIN/HX DIVERTI CULITIS [id number] 10/11/2018 11:00:00 12:39:00 DIS Outpatient MACARIO SINGH DO [facility] PREOP COLONOSCOPY [id number] 08/24/2018 00:30:00 13:30:00 DIS Inpatient RACHEL MOREIRA DO, [facility] 4TH DIVERTICULITIS [id number] 08/17/2018 07:33:00 09:43:00 DIS Emergency REINA MCCORMICK, ETHAN Olvera [facility] ER FS LT SIDE PAIN [id number] 12/18/2017 09:19:00 23:59:59 CLS Outpatient BRYSON SHEPHERD APRN [facility] RAD SCREENING FOR B REAST CANCER [id number] 11/27/2017 06:43:00 09:10:00 DIS Outpatient MACARIO SINGH DO [facility] ENDO HX DIVERTICULTITIS/ 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
[2020-01-04 22:52] VITALS: BP 151/92
[2020-01-04] MEDS ORDERED: FLUC200T5 PO (22:57)
[2020-01-04] MEDS ORDERED: CLIN300C11 PO (22:57)
[2020-01-04] MEDS ORDERED: FLUCONAZOLE 150 MG TABLET (ED ONLY) PO ONE (23:00)
[2020-01-04] MEDS ORDERED: CLINDAMYCIN 150 MG (CLEOCIN) CAP PO ONE (23:00)
[2020-01-04] MEDS ORDERED: DEXAMETHASONE 1 MG/ML 5 ML UDC (DECADRON) ORAL SOLUTION PO ONE (23:00)
== END 2020-01-04 23:05 | disposition home or self-care (01) ==
LOC: EDUNIT# 22:39 → ER FS 22:42
DX: B37.0 Candidal stomatitis (principal); E66.01 Morbid (severe) obesity due to excess calories; E78.00 Pure hypercholesterolemia, unspecified; J44.9 Chronic obstructive pulmonary disease, unspecified; G89.29 Other chronic pain; M54.9 Dorsalgia, unspecified; F31.9 Bipolar disorder, unspecified; Z68.43 Body mass index [BMI] 50.0-59.9, adult; Z88.8 Allergy status to other drugs, medicaments and biological substances; Z88.5 Allergy status to narcotic agent; Z91.040 Latex allergy status; Z87.891 Personal history of nicotine dependence; Z79.891 Long term (current) use of opiate analgesic; Z79.51 Long term (current) use of inhaled steroids; Z79.52 Long term (current) use of systemic steroids
CPT/HCPCS: 99283

== ENCOUNTER 2020-02-25 08:10 | Emergency (ER) | payer MEDICAID ==
[~2020-02-25] VITALS: Ht 162 cm; Wt 135.0 kg
[~2020-02-25 08:10] MED LIST changes: +CLIN300C11 PO; +FLUC200T5 PO
[2020-02-25] MEDS ORDERED: RT-ALBUTEROL/IPRATROPIUM 3 ML (DUONEB) VIAL INH STA (08:50)
[2020-02-25] MEDS ORDERED: methylPREDNISolone 125 MG (Solu-MEDROL) VIAL IVP STA (08:50)
--- NOTE | 2020-02-25 08:58 | ED Cough/URI ---
General Chief Complaint: Respiratory Problems Stated Complaint: COUGH; SOB; CHEST PAIN; NAUSEA Nursing Triage Note: PT HAS COPD AND ASTHMA. SHE REPORTS SHE STARTED HAVING SOME SHORTNESS OF BREATH YESTERDAY. SHE DID A NEBULIZER TX AT 0215. Sepsis Screen: No Definite Risk Source: patient History of Present Illness Date Seen by Provider: Feb 25, 2020 Time Seen by Provider: 08:36 Initial Comments 34-year-old female presenting with increased cough and shortness of breath since yesterday. She states she's also had episodes of palpitations and chest tightness. She has an history of COPD and asthma and continues to smoke. She is trying to quit smoking and states she started about 12 cigarettes a day. She last had a breathing treatment at 2:15 AM when she woke up with chest tightness and shortness of breath. She felt like her heart was racing at that time. She ran out of her albuterol inhaler yesterday because of using it so much. 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 She is around a lot of people and has been around sick people at times. She states she does not have a thermometer when asked if she has any fever or chills. She reports overall she feels very poorly. Allergies and Home Medications Allergies Coded Allergies: buspirone (Verified Allergy, Intermediate, SEVERE ANXIETY, 11/27/17) aripiprazole (Verified Allergy, Unknown, Heart racing, 08/24/18) bismuth subsalicylate (Unverified Allergy, Unknown, NAUSEA, 11/27/17) latex (Unverified Allergy, Unknown, RASH, 11/27/17) meperidine (Unverified Allergy, Unknown, RASH, 11/27/17) promethazine (Unverified Allergy, Unknown, DIFFICULTY BREATHING, 11/27/17) Uncoded Allergies: TAPE (Adverse Reaction, Unknown, RASH, 09/15/13) Home Medications Albuterol Sulfate 0.63 Mg/3 Ml Vial.neb, 0.63 MG IH PRN, (Reported) Albuterol Sulfate 1 Puff Puff, 2 PUFF IH Q4H PRN for COUGH, (Reported) 1 PUFF = 90 MCG Albuterol Sulfate 2.5 Mg/3 Ml Vial.neb, 2 PUFF IH Q4H, (Reported) Albuterol Sulfate 1 Puff Puff, 2 PUFF IH Q4H 1 PUFF = 90 MCG Prescribed by: KENZIE FLORES on 02/25/20955 Atorvastatin Calcium 20 Mg Tablet, 20 MG PO HS, (Reported) Brexpiprazole 4 Mg Tablet, 4 MG PO DAILY, (Reported) Bupropion HCl 150 Mg Tablet.er, 150 MG PO BID, (Reported) Cephalexin 500 Mg Capsule, 500 MG PO TID Prescribed by: MINE JACOBS on 07/13/19 115 Clindamycin HCl 300 Mg Capsule, 300 MG PO QID Prescribed by: DIMPLE NGUYEN on 01/04/202256 Cyclobenzaprine HCl 10 Mg Tablet, 10 MG PO TID PRN for PAIN-MODERATE (5-7), (Reported) Fluconazole 200 Mg Tablet, 200 MG PO DAILY Prescribed by: DIMPLE NGUYEN on 01/04/202256 Fluticasone Propionate 9.9 Ml [place].susp, 1 SPRAY NS DAILY, (Reported) 1 SPRAY EACH NARE DAILY Hydrocodone/Acetaminophen 1 Each Tablet, 1 TAB PO Q6H Prescribed by: KINGS MORIN on 08/16/192014 Ibuprofen 800 Mg Tablet, 800 MG PO Q8H PRN for PAIN Prescribed by: OLY HART on 02/12/19620 Ondansetron 4 Mg Tab.rapdis, 4 MG PO Q6H PRN for NAUSEA/VOMITING Prescribed by: ROSSY KENNY on 01/01/192005 Ondansetron 4 Mg Tab.rapdis, 4 MG PO Q6H Prescribed by: KINGS MORIN on 08/16/192014 Oxcarbazepine 300 Mg Tablet, 900 MG PO MORNING AND EVENING, (Reported) Oxcarbazepine 300 Mg Tablet, 600 MG PO AFTERNOON, (Reported) Pantoprazole Sodium 40 Mg Tablet.dr, 40 MG PO DAILY, (Reported) Prednisone 20 Mg Tab, 60 MG PO DAILY Prescribed by: AVA BALDWIN on 12/24/19 075 Prednisone 20 Mg Tab, 60 MG PO DAILY Prescribed by: KENZIE FLORES on 02/25/20955 Sennosides/Docusate Sodium 1 Each Tablet, 1 EACH PO BID Prescribed by: DIMPLE MIKE on 12/28/191945 Tramadol HCl 50 Mg Tablet, 50 MG PO Q6H PRN for PAIN-MILD TO MODERATE, (Reported) Patient Home Medication List Home Medication List Reviewed: Yes Review of Systems Review of Systems Constitutional: chills; No fever; malaise EENTM: hoarseness, nose congestion; No ear discharge, No epistaxis Respiratory: cough, dyspnea on exertion; No hemoptysis, No orthopnea, No phlegm; short of breath; No stridor; wheezing Cardiovascular: chest pain (tightness), edema (she feels like she has swelling in her ankles and hands), palpitations; No syncope Gastrointestinal: No diarrhea, No nausea, No vomiting Genitourinary: no symptoms reported Musculoskeletal: muscle stiffness Skin: No rash Psychiatric/Neurological: Headache Past Imftzay-Olkvkv-Flovjs Hx Past Med/Social Hx: Reviewed Nursing Past Med/Soc Hx Patient Social History Alcohol Use: Denies Use Recreational Drug Use: No (SMOKED POT OCCASIONALLY, NONE FOR 1 YR) Smoking Status: Current Everyday Smoker Type Used: Cigarettes Former Smoker, Quit: Aug 12, 2018 2nd Hand Smoke Exposure: No Recent Foreign Travel: No Contact w/Someone Who Travel: No Recent Infectious Disease Expo: No Recent Hopitalizations: No Physical Abuse: No Sexual Abuse: No Mistreated: No Fear: No Immunizations Up To Date Tetanus Booster (TDap): Unknown Seasonal Allergies Seasonal Allergies: No Past Medical History Surgeries: Yes (EGD's, Colonoscopys, D&C, colon resection) Abdominal, Cystectomy, Hysterectomy Respiratory: Yes Asthma, Sleep Apnea, COPD Currently Using CPAP: No Currently Using BIPAP: No Cardiac: Yes High Cholesterol Neurological: No Reproductive Disorders: No Female 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 Sexually Transmitted Disease: No HIV/AIDS: No Genitourinary: Yes Kidney Stones Gastrointestinal: Yes Gastroesophageal Reflux, Crohns Disease, Diverticulosis, Esophagitis Musculoskeletal: Yes Arthritis, Chronic Back Pain Endocrine: Yes (DM Type II, Morbid Obesity) Diabetes, Non-Insulin dep HEENT: No Loss of Vision: Bilateral Hearing Impairment: Denies Cancer: No Psychosocial: Yes Anxiety, Bipolar, Depression Integumentary: No Blood Disorders: No Adverse Reaction/Blood Tranf: No (HAS HAD BLOOD WITH NO REACTION) Physical Exam Vital Signs - First Documented 02/25/20 08:20 Temp 36.5 Pulse 101 Resp 18 B/P (MAP) 129/69 (89) Pulse Ox 97 O2 Delivery Room Air Capillary Refill : Less Than 3 Seconds Height: 5'4.00" Weight: 262lbs. 0oz. 118.074686bn; 51.00 BMI Method:Stated General Appearance: WD/WN, mild distress, obese HEENT: PERRL/EOMI, pharynx normal, TM abnormal (R) (dull with effusion), TM abnormal (L) (dull with effusion) Neck: non-tender, supple, normal inspection Respiratory: chest non-tender, no respiratory distress, no accessory muscle use, decreased breath sounds, wheezing (pt is forcing herself to have expiratory wheezing) Cardiovascular: normal peripheral pulses, regular rate, rhythm Gastrointestinal: normal bowel sounds, non tender, soft, no pulsatile mass Extremities: normal range of motion, non-tender, no pedal edema, normal capill shannan refill 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, no motor/sensory deficits, alert Skin: normal color, warm/dry Progress/Results/Core Measures Suspected Sepsis Recent Fever Within 48 Hours: No Infection Criteria Present: None New/Unexplained Altered Menta: No Sepsis Screen: No Definite Risk SIRS Temperature: Pulse: 101 Respiratory Rate: 18 Laboratory Tests 02/25/20 09:00: White Blood Count 8.4 Blood Pressure 129 /69 Mean: 89 Laboratory Tests 02/25/20 09:00: Creatinine 0.58L, Platelet Count 269, Total Bilirubin 0.3 Results/Orders Lab Results Laboratory Tests Test 02/25/20 09:00 Range/Units White Blood Count 8.4 4.3-11.0 10^3/uL Red Blood Count 5.43 4.35-5.85 10^6/uL Hemoglobin 14.6 11.5-16.0 G/DL Hematocrit 45 35-52 % Mean Corpuscular Volume 82 80-99 FL Mean Corpuscular Hemoglobin 27 25-34 PG Mean Corpuscular Hemoglobin Concent 33 32-36 G/DL Red Cell Distribution Width 14.0 10.0-14.5 % Platelet Count 269 130-400 10^3/uL Mean Platelet Volume 9.9 7.4-10.4 FL Neutrophils (%) (Auto) 56 42-75 % Lymphocytes (%) (Auto) 33 12-44 % Monocytes (%) (Auto) 7 0-12 % Eosinophils (%) (Auto) 4 0-10 % Basophils (%) (Auto) 0 0-10 % Neutrophils # (Auto) 4.6 1.8-7.8 X 10^3 Lymphocytes # (Auto) 2.8 1.0-4.0 X 10^3 Monocytes # (Auto) 0.6 0.0-1.0 X 10^3 Eosinophils # (Auto) 0.3 0.0-0.3 10^3/uL Basophils # (Auto) 0.0 0.0-0.1 10^3/uL Sodium Level 138 135-145 MMOL/L Potassium Level 3.8 3.6-5.0 MMOL/L Chloride Level 103 98-107 MMOL/L Carbon Dioxide Level 22 21-32 MMOL/L Anion Gap 13 5-14 MMOL/L Blood Urea Nitrogen 8 7-18 MG/DL Creatinine 0.58 L 0.60-1.30 MG/DL Estimat Glomerular Filtration Rate > 60 BUN/Creatinine Ratio 14 Glucose Level 206 H 70-105 MG/DL Calcium Level 9.0 8.5-10.1 MG/DL Corrected Calcium 9.2 8.5-10.1 MG/DL Magnesium Level 2.0 1.6-2.4 MG/DL Total Bilirubin 0.3 0.1-1.0 MG/DL Aspartate Amino Transf (AST/SGOT) 27 5-34 U/L Alanine Aminotransferase (ALT/SGPT) 39 0-55 U/L Alkaline Phosphatase 56 40-136 U/L Troponin I < 0.30 <0.30 NG/ML Pro-B-Type Natriuretic Peptide 37.7 <75.0 PG/ML Total Protein 6.6 6.4-8.2 GM/DL Albumin 3.7 3.2-4.5 GM/DL My Orders Orders - KENZIE FLORES MD Cbc With Automated Diff (02/25/20 08:50) Comprehensive Metabolic Panel (02/25/20 08:50) Albuterol/Ipra Inhalation Soln (Duoneb I (02/25/20 08:50) Chest Pa/Lat (2 View) (02/25/20 08:50) Ekg Tracing (02/25/20 08:50) O2 (02/25/20 08:50) Ed Iv/Invasive Line Start (02/25/20 08:50) Monitor-Rhythm Ecg Trace Only (02/25/20 08:50) Svn Small Volume Nebulizer (02/25/20 08:50) Troponin I Fs (02/25/20 08:50) Magnesium (02/25/20 08:50) Probnp Fs (02/25/20 08:50) Methylprednisolone Sod Succ (Solu-Medrol (02/25/20 08:50) Ondansetron Injection (Zofran Injectio (02/25/20 09:06) Vital Signs/I&O 02/25/20 02/25/20 08:20 09:59 Temp 36.5 36.2 Pulse 101 84 Resp 18 16 B/P (MAP) 129/69 (89) 122/72 Pulse Ox 97 99 O2 Delivery Room Air Room Air Capillary Refill : Less Than 3 Seconds Blood Pressure Mean: 89 Progress Note #1: Progress Note Pt is having normal oxygen saturation of 97-99% on room air. Will check labs, CXR, ECG. Try solumedrol with duoneb treatment. Progress Note #2: Time: 09:44 Progress Note Labs all stable and negative cardiac work up. CXR clear and no sign of infiltrate or pneumonia. Pt reports she is breathing easier after treatment in ED. Will discharge on steroid burst and refill Proair HFA inhaler. Counseled on follow up and return precautions. ECG Initial ECG Impression Date: Feb 25, 2020 Initial ECG Impression Time: 09:04 Initial ECG Rate: 80 Initial ECG Rhythm: Normal Sinus Initial ECG Comparisson: Unchanged Comment Normal sinus rhythm with a heart rate of 80 bpm. CA interval 169 ms. QT interval 406 ms with a QTc interval 469 ms. There is no acute ST elevation. Appears similar to prior tracings in the system. Diagnostic Imaging Diagonstic Imaging: Xray Plain Films/CT/US/NM/MRI: chest Comments NAME: MARIA C [facility] REC#: [id number] PT STATUS: REG ER : 1985 PHYSICIAN: KENZIE FLORES MD ADMIT DATE: 02/25/20/ER FS Draft Date of Exam:02/25/20 CHEST PA/LAT (2 VIEW) INDICATION: Cough and shortness of breath. EXAMINATION: PA and lateral chest at 9:01 AM. FINDINGS: The heart and mediastinal silhouette are normal in appearance. The lungs are clear. There is no pneumothorax or pleural fluid. IMPRESSION: Negative chest. Dictated on workstation # [id number] Dict: 02/25/20912 Trans: 02/25/20913 [id number] Interpreted by: YANCY BURDICK MD Electronically signed by: Departure Impression Primary Impression: COPD with exacerbation Disposition: 01 HOME, SELF-CARE Condition: Stable Departure-Patient Inst. Decision time for Depature: 09:53 [place] [facility] [facility] [place] Primary Care Physician LOPEZ SHULTZ APRN (Family) Primary Care Physician Patient Instructions: Chronic Obstructive Pulmonary Disease (COPD) (DC) Add. Discharge Instructions: Continue to work on quitting smoking. Use the steroids to help with cough, congestion and shortness of breath. Use your nebulizer and breathing treatments to help with your breathing. Check back with clinic for continued problems/concerns All discharge instructions reviewed with patient and/or family. Voiced unders tanding. Scripts Prednisone (Prednisone) 20 Mg Tab 60 MG PO DAILY for COPD Exacerbation for 4 Days, #12 TAB 0 Refills Prov: KENZIE FLORES MD 02/25/20 Albuterol Sulfate (PROAIR HFA) 1 Puff Puff 2 PUFF IH Q4H, #1 PUFF 1 PUFF = 90 MCG Prov: KENZIE FLORES MD 02/25/20 Work/School Note: Work Release Form Date Seen in the Emergency Department: Feb 25, 2020 Return to Work: Feb 28, 2020 Restrictions: No Restrictions KENZIE FLORES MD Feb 25, 2020 08:58
[2020-02-25] MEDS ORDERED: ONDANSETRON 4 MG/2 ML (SDV) Z0FRAN IVP STA (09:06)
[2020-02-25 09:07] LABS: BASOPHILS % (AUTO) 0 % (0-10); EOSINOPHILS % (AUTO) 4 % (0-10); HEMATOCRIT 45 % (35-52); HEMOGLOBIN 14.6 G/DL (11.5-16.0); LYMPHOCYTES % (AUTO) 33 % (12-44); MEAN CORPUSCULAR HEMOGLOBIN 27 PG (25-34); MEAN CORPUSCULAR HGB CONC 33 G/DL (32-36); MEAN CORPUSCULAR VOLUME 82 FL (80-99); MEAN PLATELET VOLUME 9.9 FL (7.4-10.4); MONOCYTES % (AUTO) 7 % (0-12); NEUTROPHILS % (AUTO) 56 % (42-75); PLATELET COUNT 269 10^3/uL (130-400); WHITE BLOOD COUNT 8.4 10^3/uL (4.3-11.0)
[2020-02-25 09:08] LABS: EOSINOPHILS # (AUTO) 0.3 10^3/uL (0.0-0.3); LYMPHOCYTES # (AUTO) 2.8 X 10^3 (1.0-4.0); MONOCYTES # (AUTO) 0.6 X 10^3 (0.0-1.0); NEUTROPHILS # (AUTO) 4.6 X 10^3 (1.8-7.8)
--- NOTE | 2020-02-25 09:15 | Diagnostic Imaging Report ---
INDICATION: Cough and shortness of breath. EXAMINATION: PA and lateral chest at 9:01 AM. FINDINGS: The heart and mediastinal silhouette are normal in appearance. The lungs are clear. There is no pneumothorax or pleural fluid. IMPRESSION: Negative chest. Dictated by: Dictated on workstation # [id number]
[2020-02-25 09:30] LABS: ALANINE AMINOTRANSFERASE 39 U/L (0-55); ALKALINE PHOSPHATASE 56 U/L (40-136); BILIRUBIN,TOTAL 0.3 MG/DL (0.1-1.0); BUN/CREATININE RATIO 14; CARBON DIOXIDE 22 MMOL/L (21-32); CHLORIDE 103 MMOL/L (98-107); CREATININE SERUM 0.58 MG/DL (0.60-1.30); GFR ESTIMATED > 60; GLUCOSE 206 MG/DL (70-105); POTASSIUM 3.8 MMOL/L (3.6-5.0); SODIUM 138 MMOL/L (135-145); TOTAL PROTEIN 6.6 GM/DL (6.4-8.2)
[2020-02-25 09:31] LABS: ALBUMIN 3.7 GM/DL (3.2-4.5)
[2020-02-25] MEDS ORDERED: PRD20T PO (09:56)
[2020-02-25] MEDS ORDERED: RT-ALBUINH IH (09:56)
[2020-02-25 09:59] VITALS: BP 122/72
== END 2020-02-25 10:00 | disposition home or self-care (01) ==
LOC: EDUNIT# 08:10 → ER FS 08:12
DX: J44.1 Chronic obstructive pulmonary disease with (acute) exacerbation (principal); E66.01 Morbid (severe) obesity due to excess calories; E78.00 Pure hypercholesterolemia, unspecified; K21.9 Gastro-esophageal reflux disease without esophagitis; G89.29 Other chronic pain; M54.9 Dorsalgia, unspecified; F31.9 Bipolar disorder, unspecified; Z68.43 Body mass index [BMI] 50.0-59.9, adult; F17.210 Nicotine dependence, cigarettes, uncomplicated; Z88.5 Allergy status to narcotic agent; Z91.040 Latex allergy status; Z88.8 Allergy status to other drugs, medicaments and biological substances; Z79.891 Long term (current) use of opiate analgesic; Z79.52 Long term (current) use of systemic steroids
CPT/HCPCS: 36415; 71046; 80053; 83735; 83880; 84484; 85025; 93041; 94640

== ENCOUNTER 2020-04-13 14:11 | Emergency (ER) | payer MEDICAID ==
[~2020-04-13] VITALS: Ht 162.6 cm; Wt 137.7 kg
[2020-04-13] MEDS ORDERED: NS IV 1000 ML 1,000 ML IV SCH (14:30)
[2020-04-13] MEDS ORDERED: ONDANSETRON 4 MG/2 ML (SDV) Z0FRAN IVP ONE (14:30)
[2020-04-13] MEDS ORDERED: ANTACID SUSP 30 ML UDC (MYLANTA) PO ONE (14:30)
--- NOTE | 2020-04-13 14:35 | ED Abdominal Pain ---
General Chief Complaint: Abdominal/GI Problems Stated Complaint: ABD SWELLING; VOMITING W/ BLOOD Nursing Triage Note: Patient reports she has multiple abdominal hernias, states she has had abdominal pain for 1 week with lifting and movement. 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 She reports she has Crohn's disease and has frequent loose stools, last BM today. Sepsis Screen: No Definite Risk Source of Information: Patient Exam Limitations: No Limitations History of Present Illness Date Seen by Provider: Apr 13, 2020 Time Seen by Provider: 12:00 Initial Comments Patient complains of upper abdominal pain for a week getting worse she had a near syncopal episode today and vomited once with questionable streaking of blood and that concerned her and prompted her to come for a visit. As a history of hiatal hernia multiple abdominal surgeries including cholecystectomy bowel resection and hysterectomy appendectomy. She's had no fever no diarrhea rubs the pain is constant unremitting goes from the epigastrium across to both flanks none into the back Timing/Duration: 1 Week Severity/Quality: Moderate Location: Epigastric Radiation: No Radiation Activities at Onset: None Associated Symptoms: No Back Pain, No Chest Pain, No Diaphoresis, No Fever/Chills; Other (dry mouth and burning in the throat) Allergies and Home Medications Allergies Coded Allergies: buspirone (Verified Allergy, Intermediate, SEVERE ANXIETY, 11/27/17) aripiprazole (Verified Allergy, Unknown, Heart racing, 08/24/18) bismuth subsalicylate (Unverified Allergy, Unknown, NAUSEA, 11/27/17) latex (Unverified Allergy, Unknown, RASH, 11/27/17) meperidine (Unverified Allergy, Unknown, RASH, 11/27/17) promethazine (Unverified Allergy, Unknown, DIFFICULTY BREATHING, 11/27/17) Uncoded Allergies: TAPE (Adverse Reaction, Unknown, RASH, 09/15/13) Home Medications Albuterol Sulfate 0.63 Mg/3 Ml Vial.neb, 0.63 MG IH PRN, (Reported) Albuterol Sulfate 1 Puff Puff, 2 PUFF IH Q4H PRN for COUGH, (Reported) 1 PUFF = 90 MCG Albuterol Sulfate 2.5 Mg/3 Ml Vial.neb, 2 PUFF IH Q4H, (Reported) Albuterol Sulfate 1 Puff Puff, 2 PUFF IH Q4H 1 PUFF = 90 MCG Prescribed by: KENZIE FLORES on 02/25/20 0956 Atorvastatin Calcium 20 Mg Tablet, 20 MG PO HS, (Reported) Brexpiprazole 4 Mg Tablet, 4 MG PO DAILY, (Reported) Bupropion HCl 150 Mg Tablet.er, 150 MG PO BID, (Reported) Cephalexin 500 Mg Capsule, 500 MG PO TID Prescribed by: MINE JACOBS on 07/13/19 1157 Clindamycin HCl 300 Mg Capsule, 300 MG PO QID Prescribed by: DIMPLE NGUYEN on 01/04/202256 Cyclobenzaprine HCl 10 Mg Tablet, 10 MG PO TID PRN for PAIN-MODERATE (5-7), (Reported) Famotidine 40 Mg Tablet, 40 MG PO BID PRN for 1 Prescribed by: KAMLESH HICKS on 04/13/201610 Fluconazole 200 Mg Tablet, 200 MG PO DAILY Prescribed by: DIMPLE GNUYEN on 01/04/202256 Fluticasone Propionate 9.9 Ml [place].susp, 1 SPRAY NS DAILY, (Reported) 1 SPRAY EACH NARE DAILY Hydrocodone/Acetaminophen 1 Each Tablet, 1 TAB PO Q6H Prescribed by: KINGS MORIN on 08/16/192014 Ibuprofen 800 Mg Tablet, 800 MG PO Q8H PRN for PAIN Prescribed by: OLY HART on 02/12/19 0621 Mag Carb/Al Hydrox/Alginic AC 355 Ml Oral.susp, 355 ML PO TID Prescribed by: KAMLESH HICKS on 04/13/201610 Ondansetron 4 Mg Tab.rapdis, 4 MG PO Q6H PRN for NAUSEA/VOMITING Prescribed by: ROSSY KENNY on 01/01/192005 Ondansetron 4 Mg Tab.rapdis, 4 MG PO Q6H Prescribed by: KINGS MORIN on 08/16/192014 Oxcarbazepine 300 Mg Tablet, 900 MG PO MORNING AND EVENING, (Reported) Oxcarbazepine 300 Mg Tablet, 600 MG PO AFTERNOON, (Reported) Pantoprazole Sodium 40 Mg Tablet.dr, 40 MG PO DAILY, (Reported) Pantoprazole Sodium 20 Mg Tablet.dr, 20 MG PO DAILY Prescribed by: KAMLESH HICKS on 04/13/20 1611 Prednisone 20 Mg Tab, 60 MG PO DAILY Prescribed by: AVA BALDWIN on 12/24/19 0753 Prednisone 20 Mg Tab, 60 MG PO DAILY Prescribed by: KENZIE FLORES on 02/25/20 0956 Sennosides/Docusate Sodium 1 Each Tablet, 1 EACH PO BID Prescribed by: DIMPLE MIKE on 12/28/19 194 Tramadol HCl 50 Mg Tablet, 50 MG PO Q6H PRN for PAIN-MILD TO MODERATE, (Reported) Patient Home Medication List Home Medication List Reviewed: Yes Review of Systems Review of Systems Constitutional: no symptoms reported Respiratory: No Symptoms Reported, See HPI Cardiovascular: No Symptoms Reported, See HPI Gastrointestinal: No Symptoms Reported, See HPI Genitourinary: No Symptoms Reported, See HPI Psychiatric/Neurological: No Symptoms Reported, See HPI Endocrine: No Symptoms Reported, See HPI Hematologic/Lymphatic: No Symptoms Reported, See HPI Past Xrxomuo-Mckuig-Qoczsj Hx Past Med/Social Hx: Reviewed Nursing Past Med/Soc Hx Patient Social History Type Used: Cigarettes Former Smoker, Quit: Aug 12, 2018 2nd Hand Smoke Exposure: No Recent Foreign Travel: No Contact w/Someone Who Travel: No Recent Infectious Disease Expo: No Recent Hopitalizations: No Immunizations Up To Date Tetanus Booster (TDap): Unknown Seasonal Allergies Seasonal Allergies: No Past Medical History Surgeries: Yes (EGD's, Colonoscopys, D&C, colon resection) Abdominal, Cystectomy, Hysterectomy Respiratory: Yes Asthma, Sleep Apnea, COPD Currently Using CPAP: No Currently Using BIPAP: No Cardiac: Yes High Cholesterol Neurological: No Reproductive Disorders: No Female Reproductive Disorders: Denies 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 Sexually Transmitted Disease: No HIV/AIDS: No Genitourinary: Yes Kidney Stones Gastrointestinal: Yes Gastroesophageal Reflux, Crohns Disease, Diverticulosis, Esophagitis Musculoskeletal: Yes Arthritis, Chronic Back Pain Endocrine: Yes (DM Type II, Morbid Obesity) Diabetes, Non-Insulin dep HEENT: No Loss of Vision: Bilateral Hearing Impairment: Denies Cancer: No Psychosocial: Yes Anxiety, Bipolar, Depression Integumentary: No Blood Disorders: No Adverse Reaction/Blood Tranf: No (HAS HAD BLOOD WITH NO REACTION) Physical Exam Vital Signs Vital Signs - First Documented 04/13/20 14:18 Temp 36.6 Pulse 105 Resp 18 B/P (MAP) 132/71 (91) Pulse Ox 96 O2 Delivery Room Air Capillary Refill : Less Than 3 Seconds Height/Weight/BMI Height: 5'4.00" Weight: 262lbs. 0oz. 118.735174xs; 52.00 BMI Method:Stated General Appearance: WD/WN, no apparent distress, obese HEENT: PERRL/EOMI, normal ENT inspection, pharynx normal Neck: non-tender, full range of motion, supple, normal inspection Respiratory: chest non-tender, lungs clear, normal breath sounds, no respiratory distress Cardiovascular: normal peripheral pulses, regular rate, rhythm, no edema, no gallop Gastrointestinal: normal bowel sounds, soft, other (there is diffuse tenderness in the upper abdomen without evidence surgical rebound large pannus is present without evidence of cellulitis) Extremities: normal range of motion, non-tender, normal inspection 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, no motor/sensory deficits, alert, normal mood/affect, oriented x 3 Skin: normal color, warm/dry Progress/Results/Core Measures Results/Orders Lab Results Laboratory Tests Test 04/13/20 14:30 Range/Units White Blood Count 11.2 H 4.3-11.0 10^3/uL Red Blood Count 5.46 4.35-5.85 10^6/uL Hemoglobin 14.6 11.5-16.0 G/DL Hematocrit 44 35-52 % Mean Corpuscular Volume 81 80-99 FL Mean Corpuscular Hemoglobin 27 25-34 PG Mean Corpuscular Hemoglobin Concent 33 32-36 G/DL Red Cell Distribution Width 14.1 10.0-14.5 % Platelet Count 206 130-400 10^3/uL Mean Platelet Volume 11.1 H 7.4-10.4 FL Sodium Level 138 135-145 MMOL/L Potassium Level 4.3 3.6-5.0 MMOL/L Chloride Level 103 98-107 MMOL/L Carbon Dioxide Level 22 21-32 MMOL/L Anion Gap 13 5-14 MMOL/L Blood Urea Nitrogen 10 7-18 MG/DL Creatinine 0.81 0.60-1.30 MG/DL Estimat Glomerular Filtration Rate > 60 BUN/Creatinine Ratio 12 Glucose Level 246 H 70-105 MG/DL Calcium Level 9.0 8.5-10.1 MG/DL Corrected Calcium 9.1 8.5-10.1 MG/DL Total Bilirubin 0.2 0.1-1.0 MG/DL Aspartate Amino Transf (AST/SGOT) 47 H 5-34 U/L Alanine Aminotransferase (ALT/SGPT) 48 0-55 U/L Alkaline Phosphatase 62 40-136 U/L Total Protein 6.9 6.4-8.2 GM/DL Albumin 3.9 3.2-4.5 GM/DL Lipase 42 8-78 U/L My Orders Orders - KAMLESH HICKS DO Comprehensive Metabolic Panel (04/13/20 14:28) Lipase (04/13/20 14:28) Ua Culture If Indicated (04/13/20 14:28) Ed Iv/Invasive Line Start (04/13/20 14:28) Ct Abdomen/Pelvis Wo (04/13/20 14:28) Cbc No Diff (04/13/20 14:28) Ns Iv 1000 Ml (Sodium Chloride 0.9%) (04/13/20 14:30) Ondansetron Injection (Zofran Injectio (04/13/20 14:30) Antacid Suspension (Mylanta Suspension (04/13/20 14:30) Famotidine Injection (Pepcid Injection) (04/14/20 09:00) Famotidine Injection (Pepcid Injection) (04/13/20 14:52) Medications Given in ED Current Medications Medications Dose Ordered Sig/Christoph Route Start Time Stop Time Status Last Admin Dose Admin Al Hydrox/Mg Hydrox/Simethicone 30 ml ONCE ONCE PO 04/13/20 14:30 04/13/20 14:32 DC 04/13/20 14:49 30 ML Ondansetron HCl 4 mg ONCE ONCE IVP 04/13/20 14:30 04/13/20 14:32 DC 04/13/20 14:49 4 MG Vital Signs/I&O 04/13/20 14:18 Temp 36.6 Pulse 105 Resp 18 B/P (MAP) 132/71 (91) Pulse Ox 96 O2 Delivery Room Air Blood Pressure Mean: 91 Critical Care Note Critical Care Total Time (minutes) Patient presents with subacute abdominal pain with history of multiple surgeries and vomiting. Concern would be for small bowel obstruction differential would include GERD pancreatitis reflux plan will be noncontrast CT imaging fluids medications laboratory screening symptomatic therapy. Date of : Apr 13, 2020 Departure Communication (Admissions) Patient presents with epigastric pain with vomiting and burning in her throat. Symptoms seem to Most likely with gastroesophageal reflux disease. Differential would also include pancreatitis unlikely biliary tract disease as patient does not have a gallbladder given her multiple surgeries bowel obstruction is also on the differential therefore advanced imaging will be obtained to exclude this possibility should be treated with antacids reevaluation review of labs and most likely discharged home Impression Primary Impression: GERD (gastroesophageal reflux disease) Disposition: HOME, SELF-CARE Condition: Improved Departure-Patient Inst. Decision time for Depature: 16:06 Referrals: [facility] (PCP) Primary Care Physician LOPEZ SHULTZ APRN (Family) Primary Care Physician Patient Instructions: Acid Reflux and GERD in Adults (DC) Scripts Mag Carb/Al Hydrox/Alginic AC (Gaviscon Extra Strength Liq) 355 Ml Oral.susp 355 ML PO TID for 10 Days, #1 Prov: KAMLESH HICKS DO 04/13/20 Famotidine (Pepcid) 40 Mg Tablet 40 MG PO BID PRN for 1 for 10 Days, #20 TAB Prov: KAMLESH HICKS DO 04/13/20 Pantoprazole Sodium (Protonix) 20 Mg Tablet.dr 20 MG PO DAILY for 30 Days, #30 TAB Prov: KAMLESH HICKS DO 04/13/20 KAMLESH HICKS DO Apr 13, 2020 14:35
[2020-04-13] MEDS ORDERED: FAMOTIDINE 20MG/2ML IV (PEPCID) ONE (14:52)
[2020-04-13 15:01] LABS: HEMOGLOBIN 14.6 G/DL (11.5-16.0); MEAN PLATELET VOLUME 11.1 FL (7.4-10.4); SODIUM 138 MMOL/L (135-145); WHITE BLOOD COUNT 11.2 10^3/uL (4.3-11.0)
[2020-04-13 15:02] LABS: ALANINE AMINOTRANSFERASE 48 U/L (0-55); ALBUMIN 3.9 GM/DL (3.2-4.5); ALKALINE PHOSPHATASE 62 U/L (40-136); BILIRUBIN,TOTAL 0.2 MG/DL (0.1-1.0); BUN/CREATININE RATIO 12; CARBON DIOXIDE 22 MMOL/L (21-32); CHLORIDE 103 MMOL/L (98-107); CREATININE SERUM 0.81 MG/DL (0.60-1.30); GFR ESTIMATED > 60; GLUCOSE 246 MG/DL (70-105); POTASSIUM 4.3 MMOL/L (3.6-5.0); TOTAL PROTEIN 6.9 GM/DL (6.4-8.2)
[2020-04-13 15:17] LABS: LIPASE 42 U/L (8-78)
--- NOTE | 2020-04-13 15:25 | Diagnostic Imaging Report ---
PROCEDURE: CT abdomen and pelvis without contrast. TECHNIQUE: Multiple contiguous axial images were obtained through the abdomen and pelvis without the use of intravenous contrast. Auto Exposure Controls were utilized during the CT exam to meet ALARA standards for radiation dose reduction. INDICATION: Upper abdominal pain. COMPARISON: Correlation is made with prior CT from 07/11/2019. FINDINGS: The lung bases are clear. The liver demonstrates diffuse low density, consistent with hepatic steatosis. Liver is enlarged at 23.7 cm. No discrete liver mass is identified. Gallbladder is surgically absent. No biliary ductal dilatation is seen. The pancreas and spleen are unremarkable. No adrenal mass is detected. No definite renal calculi or hydronephrosis are identified. Aorta is nonaneurysmal. There is diverticulosis of the descending and sigmoid colon but no evidence of acute diverticulitis. Bowel loops are normal in caliber. There is no obstruction. Appendix is unremarkable. No free fluid or fluid collection is identified. Bladder is unremarkable. Uterus appears to be surgically absent. Bony structures are nonacute. IMPRESSION: 1. Hepatomegaly and hepatic steatosis. 2. Uncomplicated diverticulosis. 3. No acute feature is detected. Dictated by: Dictated on workstation # [id number]
[2020-04-13] MEDS ORDERED: FAMO40TA72 PO (16:09)
[2020-04-13] MEDS ORDERED: MAG-99 PO (16:09)
[2020-04-13] MEDS ORDERED: PANT20TA2 PO (16:09)
[2020-04-13 16:20] VITALS: BP 122/67
[2020-04-14] MEDS ORDERED: FAMOTIDINE 20MG/2ML IV (PEPCID) IVP SCH (09:00)
== END 2020-04-13 16:20 | disposition home or self-care (01) ==
LOC: EDUNIT# 14:11 → ER FS 14:12
DX: K21.9 Gastro-esophageal reflux disease without esophagitis (principal); E66.01 Morbid (severe) obesity due to excess calories; J44.9 Chronic obstructive pulmonary disease, unspecified; E78.00 Pure hypercholesterolemia, unspecified; F31.9 Bipolar disorder, unspecified; G89.29 Other chronic pain; M54.9 Dorsalgia, unspecified; Z68.43 Body mass index [BMI] 50.0-59.9, adult; Z87.891 Personal history of nicotine dependence; Z88.5 Allergy status to narcotic agent; Z91.040 Latex allergy status; Z88.8 Allergy status to other drugs, medicaments and biological substances; Z79.891 Long term (current) use of opiate analgesic; Z79.52 Long term (current) use of systemic steroids
CPT/HCPCS: 74176; 80053; 83690

== ENCOUNTER 2020-04-15 13:41 | Emergency (ER) | payer MEDICAID ==
[~2020-04-15] VITALS: Ht 165 cm; Wt 120.0 kg
[~2020-04-15 13:41] MED LIST changes: +FAMO40TA72 PO; +MAG-99 PO; +PANT20TA2 PO
[2020-04-15 14:41] LABS: BASOPHILS % (AUTO) 0 % (0-10); EOSINOPHILS # (AUTO) 0.4 10^3/uL (0.0-0.3); EOSINOPHILS % (AUTO) 3 % (0-10); HEMATOCRIT 47 % (35-52); HEMOGLOBIN 15.1 g/dL (11.5-16.0); LYMPHOCYTES # (AUTO) 4.4 10^3/uL (1.0-4.0); LYMPHOCYTES % (AUTO) 34 % (12-44); MEAN CORPUSCULAR HEMOGLOBIN 27 pg (25-34); MEAN CORPUSCULAR HGB CONC 32 g/dL (32-36); MEAN CORPUSCULAR VOLUME 83 fL (80-99); MEAN PLATELET VOLUME 10.2 fL (9.0-12.2); MONOCYTES # (AUTO) 0.9 10^3/uL (0.0-1.0); MONOCYTES % (AUTO) 7 % (0-12); NEUTROPHILS # (AUTO) 7.3 10^3/uL (1.8-7.8); NEUTROPHILS % (AUTO) 56 % (42-75); PLATELET COUNT 309 10^3/uL (130-400); WHITE BLOOD COUNT 13.1 10^3/uL (4.3-11.0)
--- NOTE | 2020-04-15 14:45 | ED GI ---
General Chief Complaint: Abdominal/GI Problems Stated Complaint: HERNIA ABDOMINAL PAIN BLOOD IN STOOL Nursing Triage Note: THE PT IS AMBULATORY TO THE ROOM WITHOUT DIFFICULTY. NO DISTRESS IS SEEN ON ARRIVAL LOC IS NORMAL FOR THE PT. THE PT C/O RUQ PAIN WITH BLOODY STOOLS, WITH A LONG HX OF CROHNS DISEASE. Sepsis Screen: No Definite Risk Source of Information: Patient Exam Limitations: No Limitations History of Present Illness Date Seen by Provider: Apr 15, 2020 Time Seen by Provider: 14:12 Initial Comments Patient is a 35-year-old female who presents to the emergency room today with a chief complaint of right upper quadrant and left upper quadrant abdominal pain. Patient states that her pain has been ongoing for 3 or 4 days. She states nothing really makes it any better or any worse. Patient states that she gets full easily. She relates a history of "Crohn's disease". She tells me she has had previous partial bowel resection. Patient has followed with Dr. Ron in his clinic regarding her Crohn's disease. She relates that she was seen at [facility] emergency department 2 days prior. She at that time did have a CAT scan of her abdomen for concern of a ventral abdominal hernia. She states no reason could be found for her pain at that time. Patient reports blood in her stool and undigested food. She states she normally gets blood in her stool with her Crohn's disease. She also relates that with vomiting she has had some blood- streaked vomitus. She denies any fevers. No burning with urination, no abnormal vaginal discharge. She has been taking [id number] medications for her pain without relief of her symptoms. All other review of systems reviewed and negative except as stated. Timing/Duration: 3-4 Days Severity/Quality: Severe, Burning, Sharp, Stabbing Location: RUQ, LUQ Radiation: No Radiation Activities at Onset: Rest Allergies and Home Medications Allergies Coded Allergies: buspirone (Verified Allergy, Intermediate, SEVERE ANXIETY, 11/27/17) aripiprazole (Verified Allergy, Unknown, Heart racing, 08/24/18) bismuth subsalicylate (Unverified Allergy, Unknown, NAUSEA, 11/27/17) latex (Unverified Allergy, Unknown, RASH, 11/27/17) meperidine (Unverified Allergy, Unknown, RASH, 11/27/17) promethazine (Unverified Allergy, Unknown, DIFFICULTY BREATHING, 11/27/17) Uncoded Allergies: TAPE (Adverse Reaction, Unknown, RASH, 09/15/13) Home Medications Albuterol Sulfate 0.63 Mg/3 Ml Vial.neb, 0.63 MG IH PRN, (Reported) Albuterol Sulfate 1 Puff Puff, 2 PUFF IH Q4H PRN for COUGH, (Reported) 1 PUFF = 90 MCG Albuterol Sulfate 2.5 Mg/3 Ml Vial.neb, 2 PUFF IH Q4H, (Reported) Albuterol Sulfate 1 Puff Puff, 2 PUFF IH Q4H 1 PUFF = 90 MCG Prescribed by: KENZIE FLORES on 02/25/20 0956 Atorvastatin Calcium 20 Mg Tablet, 20 MG PO HS, (Reported) Brexpiprazole 4 Mg Tablet, 4 MG PO DAILY, (Reported) Bupropion HCl 150 Mg Tablet.er, 150 MG PO BID, (Reported) Cephalexin 500 Mg Capsule, 500 MG PO TID Prescribed by: MINE JACOBS on 07/13/19 1157 Clindamycin HCl 300 Mg Capsule, 300 MG PO QID Prescribed by: DIMPLE NGUYEN on 01/04/20 225 Cyclobenzaprine HCl 10 Mg Tablet, 10 MG PO TID PRN for PAIN-MODERATE (5-7), (Reported) Famotidine 40 Mg Tablet, 40 MG PO BID PRN for 1 Prescribed by: KAMLESH HICKS on 04/13/20 161 Fluconazole 200 Mg Tablet, 200 MG PO DAILY Prescribed by: DIMPLE NGUYEN on 01/04/20 225 Fluticasone Propionate 9.9 Ml [place].susp, 1 SPRAY NS DAILY, (Reported) 1 SPRAY EACH NARE DAILY Hydrocodone/Acetaminophen 1 Each Tablet, 1 TAB PO Q6H Prescribed by: KINGS MORIN on 08/16/192014 Hydrocodone/Acetaminophen 1 Each Tablet, 1 TAB PO Q4-6HR Prescribed by: CONNOR GONZALEZ on 04/15/20 173 Ibuprofen 800 Mg Tablet, 800 MG PO Q8H PRN for PAIN Prescribed by: OLY HART on 02/12/19 0621 Mag Carb/Al Hydrox/Alginic AC 355 Ml Oral.susp, 355 ML PO TID Prescribed by: KAMLESH HICKS on 04/13/20 1611 Metronidazole 500 Mg Tablet, 500 MG PO TID Prescribed by: CONNOR GONZALEZ on 04/15/20 173 Ondansetron 4 Mg Tab.rapdis, 4 MG PO Q6H PRN for NAUSEA/VOMITING Prescribed by: ROSSY KENNY on 01/01/192005 Ondansetron 4 Mg Tab.rapdis, 4 MG PO Q6H Prescribed by: KINGS MORIN on 08/16/192014 Ondansetron HCl 4 Mg Tab, 4 MG PO TID Prescribed by: CONNOR GONZALEZ on 04/15/20 173 Oxcarbazepine 300 Mg Tablet, 900 MG PO MORNING AND EVENING, (Reported) Oxcarbazepine 300 Mg Tablet, 600 MG PO AFTERNOON, (Reported) Pantoprazole Sodium 40 Mg Tablet.dr, 40 MG PO DAILY, (Reported) Pantoprazole Sodium 20 Mg Tablet.dr, 20 MG PO DAILY Prescribed by: KAMLESH HICKS on 04/13/20 161 Prednisone 20 Mg Tab, 60 MG PO DAILY Prescribed by: AVA BALDWIN on 12/24/19 0753 Prednisone 20 Mg Tab, 60 MG PO DAILY Prescribed by: KENZIE FLORES on 02/25/20 0956 Sennosides/Docusate Sodium 1 Each Tablet, 1 EACH PO BID Prescribed by: DIMPLE MIKE on 12/28/19 194 Tramadol HCl 50 Mg Tablet, 50 MG PO Q6H PRN for PAIN-MILD TO MODERATE, (Reported) Patient Home Medication List Home Medication List Reviewed: Yes Review of Systems Review of Systems Constitutional: malaise EENTM: No Symptoms Reported Respiratory: No Symptoms Reported Cardiovascular: No Symptoms Reported Gastrointestinal: Abdomen Distended, Abdominal Pain, Blood Streaked Stools, Nausea, Poor Appetite, Vomiting Genitourinary: No Symptoms Reported Musculoskeletal: no symptoms reported Skin: no symptoms reported All Other Systems Reviewed Negative Unless Noted: Yes Past Qrclhoe-Effhzq-Dildvx Hx Patient Social History Type Used: Cigarettes Former Smoker, Quit: Aug 12, 2018 2nd Hand Smoke Exposure: No Recent Foreign Travel: No Contact w/Someone Who Travel: No Recent Infectious Disease Expo: No Recent Hopitalizations: No Physical Abuse: No Sexual Abuse: No Mistreated: No Fear: No Immunizations Up To Date Tetanus Booster (TDap): Unknown Seasonal Allergies Seasonal Allergies: No Past Medical History Surgeries: Yes (EGD's, Colonoscopys, D&C, colon resection) Abdominal, Cystectomy, Hysterectomy Respiratory: Yes Asthma, Sleep Apnea, COPD Currently Using CPAP: No Currently Using BIPAP: No Cardiac: Yes High Cholesterol Neurological: No Reproductive Disorders: No Female Reproductive Disorders: Denies 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 Sexually Transmitted Disease: No HIV/AIDS: No Genitourinary: Yes Kidney Stones Gastrointestinal: Yes Gastroesophageal Reflux, Crohns Disease, Diverticulosis, Esophagitis Musculoskeletal: Yes Arthritis, Chronic Back Pain Endocrine: Yes (DM Type II, Morbid Obesity) Diabetes, Non-Insulin dep HEENT: No Loss of Vision: Bilateral Hearing Impairment: Denies Cancer: No Psychosocial: Yes Anxiety, Bipolar, Depression Integumentary: No Blood Disorders: No Adverse Reaction/Blood Tranf: No (HAS HAD BLOOD WITH NO REACTION) Physical Exam Vital Signs Vital Signs - First Documented 04/15/20 04/15/20 13:57 18:06 Temp 36.0 Pulse 97 Resp 16 B/P (MAP) 142/88 (106) Pulse Ox 96 Capillary Refill : Less Than 3 Seconds Height/Weight/BMI Height: 5'4.00" Weight: 262lbs. 0oz. [id number]; 44.00 BMI Method:Stated General Appearance: WD/WN, mild distress HEENT: PERRL/EOMI Neck: full range of motion Respiratory: lungs clear, normal breath sounds, no respiratory distress, no accessory muscle use Cardiovascular: regular rate, rhythm, no murmur Gastrointestinal: soft, abnormal bowel sounds (Hypoactive bowel sounds), tenderness (Diffuse abdominal wall tenderness mostly to the right upper quadrant, right midabdomen) Extremities: normal range of motion, non-tender, normal inspection, no pedal edema Back: normal inspection Neurologic/Psychiatric: alert, normal mood/affect, oriented x 3 Skin: normal color, warm/dry Progress/Results/Core Measures Results/Orders Lab Results Laboratory Tests Test 04/15/20 14:15 Range/Units White Blood Count 13.1 H 4.3-11.0 10^3/uL Red Blood Count 5.67 H 3.80-5.11 10^6/uL Hemoglobin 15.1 11.5-16.0 g/dL Hematocrit 47 35-52 % Mean Corpuscular Volume 83 80-99 fL Mean Corpuscular Hemoglobin 27 25-34 pg Mean Corpuscular Hemoglobin Concent 32 32-36 g/dL Red Cell Distribution Width 14.1 10.0-14.5 % Platelet Count 309 130-400 10^3/uL Mean Platelet Volume 10.2 9.0-12.2 fL Immature Granulocyte % (Auto) 1 % Neutrophils (%) (Auto) 56 42-75 % Lymphocytes (%) (Auto) 34 12-44 % Monocytes (%) (Auto) 7 0-12 % Eosinophils (%) (Auto) 3 0-10 % Basophils (%) (Auto) 0 0-10 % Neutrophils # (Auto) 7.3 1.8-7.8 10^3/uL Lymphocytes # (Auto) 4.4 H 1.0-4.0 10^3/uL Monocytes # (Auto) 0.9 0.0-1.0 10^3/uL Eosinophils # (Auto) 0.4 H 0.0-0.3 10^3/uL Basophils # (Auto) 0.0 0.0-0.1 10^3/uL Immature Granulocyte # (Auto) 0.1 0.0-0.1 10^3/uL Sodium Level 138 135-145 MMOL/L Potassium Level 3.9 3.6-5.0 MMOL/L Chloride Level 103 98-107 MMOL/L Carbon Dioxide Level 24 21-32 MMOL/L Anion Gap 11 5-14 MMOL/L Blood Urea Nitrogen 11 7-18 MG/DL Creatinine 0.75 0.60-1.30 MG/DL Estimat Glomerular Filtration Rate > 60 BUN/Creatinine Ratio 15 Glucose Level 144 H 70-105 MG/DL Calcium Level 8.8 8.5-10.1 MG/DL Corrected Calcium 8.7 8.5-10.1 MG/DL Total Bilirubin 0.2 0.1-1.0 MG/DL Aspartate Amino Transf (AST/SGOT) 34 5-34 U/L Alanine Aminotransferase (ALT/SGPT) 52 0-55 U/L Alkaline Phosphatase 56 40-136 U/L Total Protein 7.4 6.4-8.2 GM/DL Albumin 4.1 3.2-4.5 GM/DL My Orders Orders - CONNOR GONZALEZ MD Cbc With Automated Diff (04/15/20 14:36) Comprehensive Metabolic Panel (04/15/20 14:36) Ondansetron Injection (Zofran Injectio (04/15/20 16:00) Ketorolac Injection (Toradol Injection) (04/15/20 16:00) Ct Abdomen/Pelvis Wo (04/15/20 15:56) Medications Given in ED Vital Signs/I&O 04/15/20 04/15/20 13:57 18:06 Temp 36.0 36.0 Pulse 97 97 Resp 16 B/P (MAP) 142/88 (106) 154/88 Pulse Ox 96 Blood Pressure Mean: 106 Progress Progress Note : Time: 14:52 Progress Note 35-year-old female presents to the emergency department today with a chief complaint of right upper quadrant and left upper quadrant abdominal pain concern for hernias. Patient evaluation today includes a physical exam, CBC, Chem-12. I have done an extensive search of the patient's medical record and found that she has had previous diagnoses of diverticulitis. She did have a CAT scan done 2 days ago at [facility] which was normal. Patient has no fever but states that she has been vomiting and passing a little bit of blood per stool and a little bit of blood in her emesis. Patient clinically looks well she does have a diffusely tender abdomen with the majority of her tenderness in the right upper quadrant. She did not have any evidence of an incarcerated hernia 2 days ago. Her abdomen is nonsurgical at this time. Differential diagnosis includes a hernia that is coming and going, diverticulitis flare. Patient states that she has a history of Crohn's disease, diagnosed at age 22 when she had a partial bowel resection. This could be an inflammation of her Crohn's disease. The patient has prednisone at home. I am not leaning towards reCAT scanning her u nless she has any gross elevations in her white count on CBC and in that case we will proceed to a repeat CAT scan. [address] scan of the abdomen and pelvis without contrast is not significant for any acute pathology. Discussed plan of care with the patient as she states that she has a history of Crohn's disease we will give her some nausea and pain medications for home as well as antibiotics. She is comfortable with this plan of care she will call Dr. Ron's office tomorrow for a follow-up appointment. Diagnostic Imaging Diagonstic Imaging: CT Plain Films/CT/US/NM/MRI: abdomen Comments [facility] [place], [place] NAME: MARIA C ROJO [facility] REC#: [id number] PT STATUS: REG ER : 1985 PHYSICIAN: CONNOR GONZALEZ MD ADMIT DATE: 04/15/20/ER Draft Date of Exam:04/15/20 CT ABDOMEN/PELVIS WO EXAMINATION: CT Abdomen Pelvis without contrast. TECHNIQUE: Multiple contiguous axial images were obtained through the abdomen and pelvis without the use of intravenous contrast. All CT scans use one or more of the following dose optimizing techniques: automated exposure control, MA and/or KvP adjustment based on a patient size and exam type, or iterative reconstruction. HISTORY: Severe left upper quadrant pain. COMPARISON: CT abdomen/pelvis 04/13/2020. FINDINGS: Lung bases: The lung bases are clear. Solid organs: Diffuse hypoattenuation of the liver compatible with hepatic steatosis. The gallbladder is surgically absent. There is no biliary ductal dilation. Pancreas is normal. Spleen is normal. Adrenal glands are normal. The kidneys are normal without hydronephrosis. Bowel: Surgical changes of small bowel without obstruction. Colonic diverticulosis. Appendix is unremarkable. Peritoneum: There is no intraperitoneal free fluid or free air. No suspicious lymphadenopathy. Vasculature: Normal without aneurysm. Musculoskeletal: Degenerative changes of the spine without suspicious osseous lesion or compression fracture. Pelvis: The uterus is surgically absent. No adnexal mass. The urinary bladder is normal. IMPRESSION: 1. No acute abnormality in the abdomen or pelvis. 2. Hepatic steatosis. 3. Colonic diverticulosis without findings of diverticulitis. Dictated on workstation # [id number] Departure Impression Primary Impression: Abdominal pain Qualified Codes: R10.12 - Left upper quadrant pain Disposition: 01 HOME, SELF-CARE Condition: Stable Departure-Patient Inst. Decision time for Depature: 17:40 Referrals: [facility] (PCP) Primary Care Physician LOPEZ SHULTZ APRN (Family) Primary Care Physician Patient Instructions: Severe Abdominal Pain, Adult (DC) Add. Discharge Instructions: Take only clear liquids by mouth for the next 12 to 24 hours. Then slowly advance your diet as tolerated. I have given you prescriptions for antibiotics, nausea and pain medications. Be careful with the pain medications as it can make you sleepy, do not drive while taking this medication. Please come back to the emergency department for worsening pain, high fever, inability to hold down your medications or any other emergent concerning symptoms. Scripts Hydrocodone/Acetaminophen (Hydrocodone/Acetaminophen 5 MG/325 MG TAB) 1 Each Tablet 1 TAB PO Q4-6HR for Pain MDD 10 TABS for 3 Days, #10 TAB Prov: CONNOR GONZALEZ MD 04/15/20 Ondansetron HCl (Zofran) 4 Mg Tab 4 MG PO TID for 4 Days, #12 TAB Prov: CONNOR GONZALEZ MD 04/15/20 Metronidazole (Flagyl) 500 Mg Tablet 500 MG PO TID for 7 Days, #21 TAB Prov: CONNOR GONZALEZ MD 04/15/20 Work/School Note: Family Work Note Patient Restrictions: Back to work Sunday the 19 of April CONNOR GONZALEZ MD Apr 15, 2020 14:45
[2020-04-15 14:46] LABS: ALBUMIN 4.1 GM/DL (3.2-4.5); CHLORIDE 103 MMOL/L (98-107); POTASSIUM 3.9 MMOL/L (3.6-5.0); SODIUM 138 MMOL/L (135-145)
[2020-04-15 14:47] LABS: CALCIUM 8.8 MG/DL (8.5-10.1)
[2020-04-15 14:48] LABS: GLUCOSE 144 MG/DL (70-105); TOTAL PROTEIN 7.4 GM/DL (6.4-8.2)
[2020-04-15 14:49] LABS: CARBON DIOXIDE 24 MMOL/L (21-32)
[2020-04-15 14:50] LABS: BILIRUBIN,TOTAL 0.2 MG/DL (0.1-1.0)
[2020-04-15 14:52] LABS: ALKALINE PHOSPHATASE 56 U/L (40-136); CREATININE SERUM 0.75 MG/DL (0.60-1.30); GFR ESTIMATED > 60
[2020-04-15 14:53] LABS: BUN/CREATININE RATIO 15
[2020-04-15 14:55] LABS: ALANINE AMINOTRANSFERASE 52 U/L (0-55)
[2020-04-15] MEDS ORDERED: ONDANSETRON 4 MG/2 ML (SDV) Z0FRAN IVP ONE (16:00)
[2020-04-15] MEDS ORDERED: KETOROLAC 15 MG/ML VIAL IVP ONE (16:00)
--- NOTE | 2020-04-15 17:24 | Diagnostic Imaging Report ---
EXAMINATION: CT Abdomen Pelvis without contrast. TECHNIQUE: Multiple contiguous axial images were obtained through the abdomen and pelvis without the use of intravenous contrast. All CT scans use one or more of the following dose optimizing techniques: automated exposure control, MA and/or KvP adjustment based on a patient size and exam type, or iterative reconstruction. HISTORY: Severe left upper quadrant pain. COMPARISON: CT abdomen/pelvis 04/13/2020. FINDINGS: Lung bases: The lung bases are clear. Solid organs: Diffuse hypoattenuation of the liver compatible with hepatic steatosis. The gallbladder is surgically absent. There is no biliary ductal dilation. Pancreas is normal. Spleen is normal. Adrenal glands are normal. The kidneys are normal without hydronephrosis. Bowel: Surgical changes of small bowel without obstruction. Colonic diverticulosis. Appendix is unremarkable. Peritoneum: There is no intraperitoneal free fluid or free air. No suspicious lymphadenopathy. Vasculature: Normal without aneurysm. Musculoskeletal: Degenerative changes of the spine without suspicious osseous lesion or compression fracture. Pelvis: The uterus is surgically absent. No adnexal mass. The urinary bladder is normal. IMPRESSION: 1. No acute abnormality in the abdomen or pelvis. 2. Hepatic steatosis. 3. Colonic diverticulosis without findings of diverticulitis. Dictated by: Dictated on workstation # [id number]
[2020-04-15] MEDS ORDERED: HYDR-4226 PO (17:39)
[2020-04-15] MEDS ORDERED: ONDN4T PO (17:39)
[2020-04-15] MEDS ORDERED: METR500T PO (17:39)
[2020-04-15 18:06] VITALS: BP 154/88
== END 2020-04-15 18:06 | disposition home or self-care (01) ==
LOC: EDUNIT# 13:41 → ER 13:46
DX: R10.11 Right upper quadrant pain (principal); R10.12 Left upper quadrant pain; J44.9 Chronic obstructive pulmonary disease, unspecified; K21.9 Gastro-esophageal reflux disease without esophagitis; E78.00 Pure hypercholesterolemia, unspecified; F31.9 Bipolar disorder, unspecified; E66.01 Morbid (severe) obesity due to excess calories; G89.29 Other chronic pain; M54.9 Dorsalgia, unspecified; Z68.41 Body mass index [BMI] 40.0-44.9, adult; Z87.891 Personal history of nicotine dependence; Z91.040 Latex allergy status; Z88.5 Allergy status to narcotic agent; Z88.8 Allergy status to other drugs, medicaments and biological substances; Z79.52 Long term (current) use of systemic steroids; Z79.891 Long term (current) use of opiate analgesic
CPT/HCPCS: 36415; 74176; 80053; 85025

== ENCOUNTER 2020-05-01 21:33 | Emergency (ER) | payer MEDICAID ==
[~2020-05-01] VITALS: Ht 162.5 cm; Wt 138.5 kg
[~2020-05-01 21:33] MED LIST changes: +ONDN4T PO
[2020-05-01] MEDS ORDERED: morphine INJ 10 MG/ML 1ML (SYR OR VIAL) IVP STA (21:44)
[2020-05-01] MEDS ORDERED: ONDANSETRON 4 MG/2 ML (SDV) Z0FRAN IVP ONE (21:45)
[2020-05-01] MEDS ORDERED: DICYCLOMINE 10 MG/ML (BENTYL) 2 ML AMP IM ONE (21:45)
[2020-05-01] MEDS ORDERED: NS IV 1000 ML 1,000 ML IV SCH (21:45)
--- NOTE | 2020-05-01 21:49 | ED Abdominal Pain ---
General Stated Complaint: STOMACHE PAIN Source of Information: Patient Exam Limitations: No Limitations History of Present Illness Date Seen by Provider: May 01, 2020 Time Seen by Provider: 21:37 Initial Comments The patient is a pleasant obese 35-year-old female presents for evaluation of epigastric and right upper quadrant abdominal pain which she states is been bothering her for the last 3 weeks. She states that she has been to the ER 2 times previously for the same complaint and that she is scheduled to see a physician for an EGD on June 21. She has had multiple abdominal surgeries including a hysterectomy, partial colectomy related to Crohn's disease, and cholecystectomy. She also has a history of diverticulitis and GERD. She does still have her appendix. She reports some nausea and vomiting as well. She denies fevers or chills, diarrhea, rectal bleeding, back or flank pain, urinary complaints, pelvic pain/bleeding/discharge, chest pain or shortness of breath, palpitations, dizziness or syncope. Timing/Duration: Other (3 weeks) Severity/Quality: Moderate Location: RUQ, Epigastric Radiation: No Radiation Activities at Onset: None Associated Symptoms: Nausea/Vomiting Allergies and Home Medications Allergies Coded Allergies: buspirone (Verified Allergy, Intermediate, SEVERE ANXIETY, 11/27/17) aripiprazole (Verified Allergy, Unknown, Heart racing, 08/24/18) bismuth subsalicylate (Unverified Allergy, Unknown, NAUSEA, 11/27/17) latex (Unverified Allergy, Unknown, RASH, 11/27/17) meperidine (Unverified Allergy, Unknown, RASH, 11/27/17) promethazine (Unverified Allergy, Unknown, DIFFICULTY BREATHING, 11/27/17) Uncoded Allergies: TAPE (Adverse Reaction, Unknown, RASH, 09/15/13) Home Medications Albuterol Sulfate 0.63 Mg/3 Ml Vial.neb, 0.63 MG IH PRN, (Reported) Albuterol Sulfate 1 Puff Puff, 2 PUFF IH Q4H PRN for COUGH, (Reported) 1 PUFF = 90 MCG Albuterol Sulfate 2.5 Mg/3 Ml Vial.neb, 2 PUFF IH Q4H, (Reported) Albuterol Sulfate 1 Puff Puff, 2 PUFF IH Q4H 1 PUFF = 90 MCG Prescribed by: KENZIE FLORES on 02/25/20 0956 Atorvastatin Calcium 20 Mg Tablet, 20 MG PO HS, (Reported) Brexpiprazole 4 Mg Tablet, 4 MG PO DAILY, (Reported) Bupropion HCl 150 Mg Tablet.er, 150 MG PO BID, (Reported) Cephalexin 500 Mg Capsule, 500 MG PO TID Prescribed by: MINE JACOBS on 07/13/19 1157 Clindamycin HCl 300 Mg Capsule, 300 MG PO QID Prescribed by: DIMPLE NGUYEN on 01/04/202256 Cyclobenzaprine HCl 10 Mg Tablet, 10 MG PO TID PRN for PAIN-MODERATE (5-7), (Reported) Famotidine 40 Mg Tablet, 40 MG PO BID PRN for 1 Prescribed by: KAMLESH HICKS on 04/13/201610 Fluconazole 200 Mg Tablet, 200 MG PO DAILY Prescribed by: DIMPLE NGUYEN on 01/04/202256 Fluticasone Propionate 9.9 Ml [place].susp, 1 SPRAY NS DAILY, (Reported) 1 SPRAY EACH NARE DAILY Hydrocodone/Acetaminophen 1 Each Tablet, 1 TAB PO Q6H Prescribed by: KINGS MORIN on 08/16/192014 Hydrocodone/Acetaminophen 1 Each Tablet, 1 TAB PO Q4-6HR Prescribed by: CONNOR GONZALEZ on 04/15/201738 Ibuprofen 800 Mg Tablet, 800 MG PO Q8H PRN for PAIN Prescribed by: OLY HART on 02/12/19 0621 Mag Carb/Al Hydrox/Alginic AC 355 Ml Oral.susp, 355 ML PO TID Prescribed by: KAMLESH HICKS on 04/13/201610 Metronidazole 500 Mg Tablet, 500 MG PO TID Prescribed by: CONNOR GONZALEZ on 04/15/201738 Ondansetron 4 Mg Tab.rapdis, 4 MG PO Q6H PRN for NAUSEA/VOMITING Prescribed by: ROSSY KENNY on 01/01/192005 Ondansetron 4 Mg Tab.rapdis, 4 MG PO Q6H Prescribed by: KINGS MORIN on 08/16/192014 Ondansetron HCl 4 Mg Tab, 4 MG PO TID Prescribed by: CONNOR GONZALEZ on 04/15/201738 Oxcarbazepine 300 Mg Tablet, 900 MG PO MORNING AND EVENING, (Reported) Oxcarbazepine 300 Mg Tablet, 600 MG PO AFTERNOON, (Reported) Pantoprazole Sodium 40 Mg Tablet.dr, 40 MG PO DAILY, (Reported) Pantoprazole Sodium 20 Mg Tablet.dr, 20 MG PO DAILY Prescribed by: KAMLESH HICKS on 04/13/20 1611 Prednisone 20 Mg Tab, 60 MG PO DAILY Prescribed by: AVA BALDWIN on 12/24/19 0753 Prednisone 20 Mg Tab, 60 MG PO DAILY Prescribed by: KENZIE FLORES on 02/25/20 0956 Sennosides/Docusate Sodium 1 Each Tablet, 1 EACH PO BID Prescribed by: DIMPLE MIKE on 12/28/19 194 Tramadol HCl 50 Mg Tablet, 50 MG PO Q6H PRN for PAIN-MILD TO MODERATE, (Reported) Patient Home Medication List Home Medication List Reviewed: Yes Review of Systems Review of Systems Constitutional: no symptoms reported EENTM: No Symptoms Reported Respiratory: No Symptoms Reported Cardiovascular: No Symptoms Reported Gastrointestinal: Abdominal Pain, Nausea, Vomiting Genitourinary: No Symptoms Reported Musculoskeletal: no symptoms reported Skin: no symptoms reported Psychiatric/Neurological: No Symptoms Reported Endocrine: No Symptoms Reported Hematologic/Lymphatic: No Symptoms Reported All Other Systems Reviewed Negative Unless Noted: Yes Past [place]-Kumcst-Comsnp Hx Past Med/Social Hx: Reviewed Nursing Past Med/Soc Hx Patient Social History Type Used: Cigarettes Former Smoker, Quit: Aug 12, 2018 2nd Hand Smoke Exposure: No Recent Foreign Travel: No Contact w/Someone Who Travel: No Recent Hopitalizations: No Immunizations Up To Date Tetanus Booster (TDap): Unknown Seasonal Allergies Seasonal Allergies: No Past Medical History Surgeries: Yes (EGD's, Colonoscopys, D&C, colon resection) Abdominal, Cystectomy, Hysterectomy Respiratory: Yes Asthma, Sleep Apnea, COPD Currently Using CPAP: No Currently Using BIPAP: No Cardiac: Yes High Cholesterol Neurological: No Reproductive Disorders: No 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 Sexually Transmitted Disease: No HIV/AIDS: No Genitourinary: Yes Kidney Stones Gastrointestinal: Yes Gastroesophageal Reflux, Crohns Disease, Diverticulosis, Esophagitis Musculoskeletal: Yes Arthritis, Chronic Back Pain Endocrine: Yes (DM Type II, Morbid Obesity) Diabetes, Non-Insulin dep HEENT: No Loss of Vision: Bilateral Hearing Impairment: Denies Cancer: No Psychosocial: Yes Anxiety, Bipolar, Depression Integumentary: No Blood Disorders: No Adverse Reaction/Blood Tranf: No (HAS HAD BLOOD WITH NO REACTION) Physical Exam Vital Signs Vital Signs - First Documented 05/01/20 21:37 Temp 36.8 Pulse 112 Resp 24 B/P (MAP) 119/88 (98) Pulse Ox 98 O2 Delivery Room Air Capillary Refill : Height/Weight/BMI Height: 5'4.00" Weight: 262lbs. 0oz. 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, no motor/sensory deficits, alert, normal mood/affect, oriented x 3 Skin: normal color, warm/dry Progress/Results/Core Measures Results/Orders Lab Results Laboratory Tests Test 05/01/20 21:44 05/01/20 22:23 Range/Units White Blood Count 13.4 H 4.3-11.0 10^3/uL Red Blood Count 5.61 4.35-5.85 10^6/uL Hemoglobin 15.1 11.5-16.0 G/DL Hematocrit 46 35-52 % Mean Corpuscular Volume 82 80-99 FL Mean Corpuscular Hemoglobin 27 25-34 PG Mean Corpuscular Hemoglobin Concent 33 32-36 G/DL Red Cell Distribution Width 14.5 10.0-14.5 % Platelet Count 278 130-400 10^3/uL Mean Platelet Volume 9.8 7.4-10.4 FL Immature Granulocyte % (Auto) 1 % Neutrophils (%) (Auto) 58 42-75 % Lymphocytes (%) (Auto) 32 12-44 % Monocytes (%) (Auto) 7 0-12 % Eosinophils (%) (Auto) 2 0-10 % Basophils (%) (Auto) 0 0-10 % Neutrophils # (Auto) 7.7 1.8-7.8 X 10^3 Lymphocytes # (Auto) 4.3 H 1.0-4.0 X 10^3 Monocytes # (Auto) 0.9 0.0-1.0 X 10^3 Eosinophils # (Auto) 0.3 0.0-0.3 10^3/uL Basophils # (Auto) 0.1 0.0-0.1 10^3/uL Immature Granulocyte # (Auto) 0.1 0.0-0.1 10^3/uL Sodium Level 133 L 135-145 MMOL/L Potassium Level 4.1 3.6-5.0 MMOL/L Chloride Level 102 98-107 MMOL/L Carbon Dioxide Level 20 L 21-32 MMOL/L Anion Gap 11 5-14 MMOL/L Blood Urea Nitrogen 8 7-18 MG/DL Creatinine 0.53 L 0.60-1.30 MG/DL Estimat Glomerular Filtration Rate > 60 BUN/Creatinine Ratio 15 Glucose Level 329 H 70-105 MG/DL Calcium Level 8.7 8.5-10.1 MG/DL Corrected Calcium 8.8 8.5-10.1 MG/DL Total Bilirubin 0.2 0.1-1.0 MG/DL Aspartate Amino Transf (AST/SGOT) 26 5-34 U/L Alanine Aminotransferase (ALT/SGPT) 45 0-55 U/L Alkaline Phosphatase 69 40-136 U/L Total Protein 7.2 6.4-8.2 GM/DL Albumin 3.9 3.2-4.5 GM/DL Amylase Level 29 25-125 U/L Lipase 45 8-78 U/L Urine Color YELLOW Urine Clarity CLEAR Urine pH 6.0 5-9 Urine Specific [place] 1.010 L 1.016-1.022 Urine Protein NEGATIVE NEGATIVE Urine Glucose (UA) 3+ H NEGATIVE Urine Ketones NEGATIVE NEGATIVE Urine Nitrite NEGATIVE NEGATIVE Urine Bilirubin NEGATIVE NEGATIVE Urine Urobilinogen 0.2 < = 1.0 MG/DL Urine Leukocyte Esterase NEGATIVE NEGATIVE Urine RBC (Auto) TRACE-I NEGATIVE Urine RBC 0-2 /HPF Urine WBC 0-2 /HPF Urine Squamous Epithelial Cells 10-25 H /HPF Urine Crystals NONE /LPF Urine Bacteria TRACE /HPF Urine Casts NONE /LPF Urine Mucus NEGATIVE /LPF Urine Culture Indicated NO My Orders Orders - BRENT AUSTIN DO Ua Culture If Indicated (05/01/20 21:35) Comprehensive Metabolic Panel (05/01/20 21:44) Lipase (05/01/20 21:44) Amylase (05/01/20 21:44) Ed Iv/Invasive Line Start (05/01/20 21:44) Cbc With Automated Diff (05/01/20 21:44) Ct Abdomen/Pelvis W (05/01/20 21:44) Ns Iv 1000 Ml (Sodium Chloride 0.9%) (05/01/20 21:45) Ondansetron Injection (Zofran Injectio (05/01/20 21:45) Dicyclomine Injection (Bentyl Injection) (05/01/20 21:45) Morphine Injection (Morphine Injection (05/01/20 21:44) Iohexol Injection (Omnipaque 350 Mg/Ml 1 (05/01/20 22:00) Received Contrast (Hold Metformin- Contr (05/01/20 22:00) Sodium Chloride Flush (Catheter Flush Sy (05/01/20 22:00) Ns (Ivpb) (Sodium Chloride 0.9% Ivpb Bag (05/01/20 22:00) Insulin (Regular) Human (Novolin R (Per (05/01/20 22:45) Medications Given in ED Current Medications Medications Dose Ordered Sig/Christoph Route Start Time Stop Time Status Last Admin Dose Admin Dicyclomine HCl 20 mg ONCE ONCE IM 05/01/20 21:45 05/01/20 21:47 DC 05/01/20 21:57 20 MG Insulin Human Regular 10 unit ONCE ONCE IV 05/01/20 22:45 05/01/20 22:46 DC 05/01/20 22:48 10 UNIT Iohexol 100 ml ONCE ONCE IV 05/01/20 22:00 05/01/20 22:01 DC 05/01/20 22:06 100 ML Ondansetron HCl 4 mg ONCE ONCE IVP 05/01/20 21:45 05/01/20 21:47 DC 05/01/20 21:53 4 MG Sodium Chloride 10 ml NEEDED PRN IV 05/01/20 22:00 05/01/20 22:07 10 ML Sodium Chloride 100 ml ONCE ONCE IV 05/01/20 22:00 05/01/20 22:01 DC 05/01/20 22:06 100 ML Vital Signs/I&O 11/21/20 21:37 Temp 36.8 Pulse 112 Resp 24 B/P (MAP) 119/88 (98) Pulse Ox 98 O2 Delivery Room Air Progress Progress Note : Progress Note @2302 - patient updated on lab and imaging results which are acutely unremarkable. Advised the patient to follow up with her doctor in the next 1-2 days and to return to the emergency Department immediately for new or worsening symptoms. The patient expresses verbal understanding and agreement with the plan and is stable for discharge. Departure Impression Primary Impression: Abdominal pain Disposition: HOME, SELF-CARE Condition: Stable Departure-Patient Inst. Decision time for Depature: 23:05 Referrals: [facility] (PCP) Primary Care Physician LOPEZ SHULTZ APRN (Family) Primary Care Physician Patient Instructions: Severe Abdominal Pain, Adult (DC) Add. Discharge Instructions: Take the prescribed medicine as directed. Follow-up with your doctor in the next 2-3 days. Return to the emergency Department immediately for new or worsening symptoms. Scripts Hydrocodone/Acetaminophen ([place] 7.5-325 Tablet) 1 Each Tablet 1 TAB PO Q4H for PAIN-MODERATE MDD 6 TABS for 3 Days, #12 TAB Prov: RBENT AUSTIN DO 05/01/20 BRENT AUSTIN DO May 01, 2020 21:49
[2020-05-01 21:57] LABS: BASOPHILS # (AUTO) 0.1 10^3/uL (0.0-0.1); BASOPHILS % (AUTO) 0 % (0-10); EOSINOPHILS # (AUTO) 0.3 10^3/uL (0.0-0.3); EOSINOPHILS % (AUTO) 2 % (0-10); HEMATOCRIT 46 % (35-52); HEMOGLOBIN 15.1 G/DL (11.5-16.0); LYMPHOCYTES # (AUTO) 4.3 X 10^3 (1.0-4.0); LYMPHOCYTES % (AUTO) 32 % (12-44); MEAN CORPUSCULAR HEMOGLOBIN 27 PG (25-34); MEAN CORPUSCULAR HGB CONC 33 G/DL (32-36); MEAN CORPUSCULAR VOLUME 82 FL (80-99); MEAN PLATELET VOLUME 9.8 FL (7.4-10.4); MONOCYTES # (AUTO) 0.9 X 10^3 (0.0-1.0); MONOCYTES % (AUTO) 7 % (0-12); NEUTROPHILS # (AUTO) 7.7 X 10^3 (1.8-7.8); NEUTROPHILS % (AUTO) 58 % (42-75); PLATELET COUNT 278 10^3/uL (130-400); WHITE BLOOD COUNT 13.4 10^3/uL (4.3-11.0)
[2020-05-01] MEDS ORDERED: IOHEXOL 350 MG/ML 100 ML (OMNIPAQUE 350) VIAL IV ONE (22:00)
[2020-05-01] MEDS ORDERED: HOLD METFORMIN - RECEIVED CONTRAST 20 ML VIAL IV SCH (22:00)
[2020-05-01] MEDS ORDERED: NS 100 ML (IVPB) BAG IV ONE (22:00)
[2020-05-01] MEDS ORDERED: CATHETER FLUSH 10 ML SYR IV PRN (22:00)
[2020-05-01 22:19] LABS: ALANINE AMINOTRANSFERASE 45 U/L (0-55); ALBUMIN 3.9 GM/DL (3.2-4.5); ALKALINE PHOSPHATASE 69 U/L (40-136); AMYLASE 29 U/L (25-125); BILIRUBIN,TOTAL 0.2 MG/DL (0.1-1.0); BUN/CREATININE RATIO 15; CALCIUM 8.7 MG/DL (8.5-10.1); CARBON DIOXIDE 20 MMOL/L (21-32); CHLORIDE 102 MMOL/L (98-107); CREATININE SERUM 0.53 MG/DL (0.60-1.30); GFR ESTIMATED > 60; GLUCOSE 329 MG/DL (70-105); LIPASE 45 U/L (8-78); POTASSIUM 4.1 MMOL/L (3.6-5.0); SODIUM 133 MMOL/L (135-145); TOTAL PROTEIN 7.2 GM/DL (6.4-8.2)
[2020-05-01 22:33] LABS: CLARITY,URINE CLEAR; COLOR,URINE YELLOW; GLUCOSE, URINE (UA) 3+ (NEGATIVE); PROTEIN,URINE NEGATIVE (NEGATIVE)
[2020-05-01 22:34] LABS: BACTERIA,URINE TRACE /HPF; BILIRUBIN,URINE NEGATIVE (NEGATIVE); KETONES,URINE NEGATIVE (NEGATIVE); LEUKOCYTE ESTERASE ,URINE NEGATIVE (NEGATIVE); NITRITE,URINE NEGATIVE (NEGATIVE); RBC,URINE 0-2 /HPF; WBC,URINE 0-2 /HPF
[2020-05-01] MEDS ORDERED: inSUlin (REGULAR) HUMAN 1 UNIT/0.01 ML (CHARGE PER UNIT) IV ONE (22:45)
[2020-05-01] MEDS ORDERED: HYDR-4227 PO (23:05)
[2020-05-01 23:08] VITALS: BP 113/74
--- NOTE | 2020-05-02 06:40 | Diagnostic Imaging Report ---
PROCEDURE: CT abdomen and pelvis with contrast. TECHNIQUE: Multiple contiguous axial images were obtained through the abdomen and pelvis after administration of intravenous contrast. Auto Exposure Controls were utilized during the CT exam to meet ALARA standards for radiation dose reduction. All CT scans use one or more of the following dose optimizing techniques: automated exposure control, MA and/or KvP adjustment based on patient size and exam type or iterative reconstruction. INDICATION: Right upper quadrant abdominal pain. COMPARISON: CT abdomen and pelvis without contrast 04/15/2020. FINDINGS: The lung bases are clear. Diffuse fatty infiltration of the liver. Cholecystectomy. The pancreas, spleen, adrenals, kidneys, collecting systems and bladder negative. Hysterectomy. Normal appendix. Mild colonic diverticulosis without active diverticulitis. No free intraperitoneal air or fluid. No lymphadenopathy. No evidence of bowel obstruction. No acute osseous findings. IMPRESSION: 1. No acute CT findings in the abdomen or pelvis. 2. Hepatic steatosis. 3. Mild colonic diverticulosis without evidence of active diverticulitis. No significant change from preliminary interpretation. Dictated by: Dictated on workstation # [id number]
== END 2020-05-01 23:08 | disposition home or self-care (01) ==
LOC: EDUNIT# 21:33 → ER FS 21:36
DX: R10.13 Epigastric pain (principal); R10.11 Right upper quadrant pain; R11.2 Nausea with vomiting, unspecified; E78.00 Pure hypercholesterolemia, unspecified; F41.9 Anxiety disorder, unspecified; F31.9 Bipolar disorder, unspecified; K21.00 Gastro-esophageal reflux disease with esophagitis, without bleeding; K57.90 Diverticulosis of intestine, part unspecified, without perforation or abscess without bleeding; E66.01 Morbid (severe) obesity due to excess calories; J44.9 Chronic obstructive pulmonary disease, unspecified; Z87.891 Personal history of nicotine dependence; Z79.52 Long term (current) use of systemic steroids; Z79.51 Long term (current) use of inhaled steroids; Z88.5 Allergy status to narcotic agent; Z88.8 Allergy status to other drugs, medicaments and biological substances; Z91.040 Latex allergy status
CPT/HCPCS: 36415; 74177; 80053; 81000; 82150; 83690; 85025

== ENCOUNTER 2020-06-08 12:58 | Emergency (ER) | payer MEDICAID ==
[~2020-06-08] VITALS: Ht 162.6 cm; Wt 136.3 kg
[~2020-06-08 12:58] MED LIST changes: -CLIN300C11 PO; +CLIN300C12 PO; +HYDR-4227 PO
--- NOTE | 2020-06-08 13:07 | ED GI ---
General Chief Complaint: Abdominal/GI Problems Stated Complaint: ABD PAIN; GEN SWELLING History of Present Illness Date Seen by Provider: Jun 08, 2020 Time Seen by Provider: 13:06 Initial Comments 35-year-old female presents with chronic abdominal pain. Patient reports she has pain in her right upper quadrant. Patient has been seen numerous times for abdominal pain. She had a negative CT approximately one month ago. She is scheduled for an EGD on June 21. She reports she's had couple episodes of vomiting. She has normal loose stool. No reports of fever or chills. She also complains of "generalized swelling" along with abdominal distention. No cough, fevers chills or urinary symptoms noted. Patient had 3 visits in April for similar complaints. She was supposed to see Dr. Ron around the but did not make the appointment. Allergies and Home Medications Allergies Coded Allergies: buspirone (Verified Allergy, Intermediate, SEVERE ANXIETY, 11/27/17) aripiprazole (Verified Allergy, Unknown, Heart racing, 08/24/18) bismuth subsalicylate (Unverified Allergy, Unknown, NAUSEA, 11/27/17) latex (Unverified Allergy, Unknown, RASH, 11/27/17) meperidine (Unverified Allergy, Unknown, RASH, 11/27/17) promethazine (Unverified Allergy, Unknown, DIFFICULTY BREATHING, 11/27/17) Uncoded Allergies: TAPE (Adverse Reaction, Unknown, RASH, 09/15/13) Home Medications Albuterol Sulfate 0.63 Mg/3 Ml Vial.neb, 0.63 MG IH PRN, (Reported) Albuterol Sulfate 1 Puff Puff, 2 PUFF IH Q4H PRN for COUGH, (Reported) 1 PUFF = 90 MCG Albuterol Sulfate 2.5 Mg/3 Ml Vial.neb, 2 PUFF IH Q4H, (Reported) Albuterol Sulfate 1 Puff Puff, 2 PUFF IH Q4H 1 PUFF = 90 MCG Prescribed by: KENZIE FLORES on 02/25/20 0956 Atorvastatin Calcium 20 Mg Tablet, 20 MG PO HS, (Reported) Brexpiprazole 4 Mg Tablet, 4 MG PO DAILY, (Reported) Bupropion HCl 150 Mg Tablet.er, 150 MG PO BID, (Reported) Cephalexin 500 Mg Capsule, 500 MG PO TID Prescribed by: MINE JACOBS on 07/13/19 1157 Clindamycin HCl 300 Mg Capsule, 300 MG PO QID Prescribed by: DIMPLE NGUYEN on 01/04/202256 Cyclobenzaprine HCl 10 Mg Tablet, 10 MG PO TID PRN for PAIN-MODERATE (5-7), (Reported) Famotidine 40 Mg Tablet, 40 MG PO BID PRN for 1 Prescribed by: KAMLESH HICKS on 04/13/20 161 Fluconazole 200 Mg Tablet, 200 MG PO DAILY Prescribed by: DIMPLE NGUYEN on 01/04/202256 Fluticasone Propionate 9.9 Ml [place].susp, 1 SPRAY NS DAILY, (Reported) 1 SPRAY EACH NARE DAILY Hydrocodone/Acetaminophen 1 Each Tablet, 1 TAB PO Q6H Prescribed by: KINGS MORIN on 08/16/192014 Hydrocodone/Acetaminophen 1 Each Tablet, 1 TAB PO Q4-6HR Prescribed by: CONNOR GONZALEZ on 04/15/201738 Hydrocodone/Acetaminophen 1 Each Tablet, 1 TAB PO Q4H Prescribed by: BRENT AUSTIN on 05/01/20 2305 Ibuprofen 800 Mg Tablet, 800 MG PO Q8H PRN for PAIN Prescribed by: OLY HART on 02/12/19 0621 Mag Carb/Al Hydrox/Alginic AC 355 Ml [place].susp, 355 ML PO TID Prescribed by: KAMLESH HICKS on 04/13/20 161 Metronidazole 500 Mg Tablet, 500 MG PO TID Prescribed by: CONNOR GONZALEZ on 04/15/201738 Ondansetron 4 Mg Tab.rapdis, 4 MG PO Q6H PRN for NAUSEA/VOMITING Prescribed by: ROSSY KENNY on 01/01/192005 Ondansetron 4 Mg Tab.rapdis, 4 MG PO Q6H Prescribed by: KINGS MORIN on 08/16/192014 Ondansetron HCl 4 Mg Tab, 4 MG PO TID Prescribed by: CONNOR GONZALEZ on 04/15/201738 Oxcarbazepine 300 Mg Tablet, 900 MG PO MORNING AND EVENING, (Reported) Oxcarbazepine 300 Mg Tablet, 600 MG PO AFTERNOON, (Reported) Pantoprazole Sodium 40 Mg Tablet.dr, 40 MG PO DAILY, (Reported) Pantoprazole Sodium 20 Mg Tablet., 20 MG PO DAILY Prescribed by: KAMLESH HICKS on 04/13/20 1611 Prednisone 20 Mg Tab, 60 MG PO DAILY Prescribed by: AVA NOVAK on 12/24/19 0753 Prednisone 20 Mg Tab, 60 MG PO DAILY Prescribed by: KENZIE FLORES on 02/25/20 0956 Sennosides/Docusate Sodium 1 Each Tablet, 1 EACH PO BID Prescribed by: DIMPLE MIKE on 12/28/19 194 Tramadol HCl 50 Mg Tablet, 50 MG PO Q6H PRN for PAIN-MILD TO MODERATE, (Reported) Patient Home Medication List Home Medication List Reviewed: Yes Review of Systems Review of Systems Constitutional: No chills, No fever Respiratory: Denies Cough, Denies Shortness of Air, Denies SOA at Rest Cardiovascular: Denies Chest Pain; Edema; Denies Irregular Heart Rate Gastrointestinal: See HPI, Abdomen Distended, Abdominal Pain, Nausea, Vomiting Genitourinary: No Symptoms Reported Musculoskeletal: no symptoms reported Skin: no symptoms reported Endocrine: No Symptoms Reported Past Gokjmmm-Zeaggz-Cdsnol Hx Past Med/Social Hx: Reviewed Nursing Past Med/Soc Hx Patient Social History Type Used: Cigarettes Former Smoker, Quit: Aug 12, 2018 2nd Hand Smoke Exposure: No Recent Foreign Travel: No Contact w/Someone Who Travel: No Recent Hopitalizations: No Immunizations Up To Date Tetanus Booster (TDap): Unknown Seasonal Allergies Seasonal Allergies: No Past Medical History Surgeries: Yes (EGD's, Colonoscopys, D&C, colon resection) Abdominal, Cystectomy, Hysterectomy Respiratory: Yes Asthma, Sleep Apnea, COPD Currently Using CPAP: No Currently Using BIPAP: No Cardiac: Yes High Cholesterol Neurological: No Reproductive Disorders: No 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 Transmitted Disease: No HIV/AIDS: No Genitourinary: Yes Kidney Stones Gastrointestinal: Yes Gastroesophageal Reflux, Crohns Disease, Diverticulosis, Esophagitis Musculoskeletal: Yes Arthritis, Chronic Back Pain Endocrine: Yes (DM Type II, Morbid Obesity) Diabetes, Non-Insulin dep HEENT: No Loss of Vision: Bilateral Hearing Impairment: Denies Cancer: No Psychosocial: Yes Anxiety, Bipolar, Depression Integumentary: No Blood Disorders: No Adverse Reaction/Blood Tranf: No (HAS HAD BLOOD WITH NO REACTION) Physical Exam Vital Signs Vital Signs - First Documented 06/08/20 13:10 Temp 36.6 Pulse 95 Resp 18 B/P (MAP) 111/74 (86) Pulse Ox 98 O2 Delivery Room Air Capillary Refill : Height/Weight/BMI Height: 5'4.00" Weight: 262lbs. 0oz. 118.837504mm; 52.00 BMI Method:Stated General Appearance: no apparent distress, obese (morbid) HEENT: PERRL/EOMI Neck: supple Respiratory: lungs clear, normal breath sounds Cardiovascular: normal peripheral pulses, regular rate, rhythm Gastrointestinal: distended, tenderness (diffuse, right upper quadrant) Extremities: normal range of motion Neurologic/Psychiatric: alert, normal mood/affect, oriented x 3 Skin: normal color, warm/dry Focused Exam Lactate Level 06/08/20 13:30: Lactic Acid Level 0.93 Lactic Acid Level Laboratory Tests Test 06/08/20 13:30 Lactic Acid Level 0.93 MMOL/L (0.50-2.00) Progress/Results/Core Measures Results/Orders Lab Results Laboratory Tests Test 06/08/20 13:20 06/08/20 13:30 Range/Units White Blood Count 11.1 H 4.3-11.0 10^3/uL Red Blood Count 5.79 4.35-5.85 10^6/uL Hemoglobin 15.4 11.5-16.0 G/DL Hematocrit 48 35-52 % Mean Corpuscular Volume 82 80-99 FL Mean Corpuscular Hemoglobin 27 25-34 PG Mean Corpuscular Hemoglobin Concent 32 32-36 G/DL Red Cell Distribution Width 14.3 10.0-14.5 % Platelet Count 270 130-400 10^3/uL Mean Platelet Volume 10.2 7.4-10.4 FL Immature Granulocyte % (Auto) 1 % Neutrophils (%) (Auto) 64 42-75 % Lymphocytes (%) (Auto) 26 12-44 % Monocytes (%) (Auto) 6 0-12 % Eosinophils (%) (Auto) 3 0-10 % Basophils (%) (Auto) 1 0-10 % Neutrophils # (Auto) 7.1 1.8-7.8 X 10^3 Lymphocytes # (Auto) 2.9 1.0-4.0 X 10^3 Monocytes # (Auto) 0.7 0.0-1.0 X 10^3 Eosinophils # (Auto) 0.3 0.0-0.3 10^3/uL Basophils # (Auto) 0.1 0.0-0.1 10^3/uL Immature Granulocyte # (Auto) 0.1 0.0-0.1 10^3/uL Sodium Level 140 135-145 MMOL/L Potassium Level 3.9 3.6-5.0 MMOL/L Chloride Level 106 98-107 MMOL/L Carbon Dioxide Level 22 21-32 MMOL/L Anion Gap 12 5-14 MMOL/L Blood Urea Nitrogen 12 7-18 MG/DL Creatinine 0.68 0.60-1.30 MG/DL Estimat Glomerular Filtration Rate > 60 BUN/Creatinine Ratio 18 Glucose Level 105 70-105 MG/DL Calcium Level 9.0 8.5-10.1 MG/DL Corrected Calcium 8.8 8.5-10.1 MG/DL Total Bilirubin 0.2 0.1-1.0 MG/DL Aspartate Amino Transf (AST/SGOT) 42 H 5-34 U/L Alanine Aminotransferase (ALT/SGPT) 52 0-55 U/L Alkaline Phosphatase 64 40-136 U/L C-Reactive Protein 1.94 H <0.50 MG/DL Total Protein 7.4 6.4-8.2 GM/DL Albumin 4.2 3.2-4.5 GM/DL Lipase 38 8-78 U/L Lactic Acid Level 0.93 0.50-2.00 MMOL/L My Orders Orders - KENNY,ROSSY L DO Ammonia (06/08/20 13:13) Cbc With Automated Diff (06/08/20 13:13) Comprehensive Metabolic Panel (06/08/20 13:13) Lactic Acid Analyzer (06/08/20 13:13) Lipase (06/08/20 13:13) Ua Culture If Indicated (06/08/20 13:13) Crp Fs (06/08/20 13:13) Acute Abd Series (06/08/20 13:13) Ed Iv/Invasive Line Start (06/08/20 13:13) Vital Signs/I&O 06/08/20 13:10 Temp 36.6 Pulse 95 Resp 18 B/P (MAP) 111/74 (86) Pulse Ox 98 O2 Delivery Room Air Progress Progress Note : Time: 14:18 Progress Note Patient with no significant changes on her labs from her previous visits in April. I reviewed her complaints and visits in April and seems very similar to today's complaints. Patient had 3 negative CAT scans in April. I discussed with her that this point I do not see a benefit greater than the risk of repeated CAT scans. She has an appointment on June 21 with a GI specialist for an EGD and possible liver biopsy. Discussed with her the need to keep that appointment if she feels she can try to move it up. At this time she can continue her current outpatient treatment. She needs a follow-up for her chronic abdominal issues with her GI and general surgeon specialist and her primary care provider for further management. Departure Impression Primary Impression: Chronic upper abdominal pain Disposition: HOME, SELF-CARE Condition: Stable Departure-Patient Inst. Referrals: LOPEZ SHULTZ APRN (PCP) Primary Care Physician [facility] (Family) Primary Care Physician Patient Instructions: Abdominal Pain, Adult ED Add. Discharge Instructions: Please keep your already scheduled appointment on June [address] Novak for an EGD and biopsies. He may called to try to schedule sooner if you feel pain is worsening. Please follow-up with Dr. Ron and her primary care provider if he continues to have pain. Continue current medication and consult one of your outpatient physicians if you feel he needed different medication regimen at this time All discharge instructions reviewed with patient and/or family. Voiced understanding. ROSSY KENNY DO Jun 08, 2020 13:07
--- NOTE | 2020-06-08 13:39 | Diagnostic Imaging Report ---
INDICATION: Abdominal pain. COMPARISON: 02/25/2020. FINDINGS: Supine and upright views of the abdomen show a nondistended bowel gas pattern. No abnormal air fluid levels or free intraperitoneal air is seen. No abnormal extraosseous calcifications are seen. Bony and soft tissue structures are within normal limits. No organomegaly is identified. Accompanying upright chest shows normal heart size and pulmonary vascularity. The lungs are well aerated and clear. The mediastinum is normal in appearance. IMPRESSION: 1. No bowel obstruction or free air. 2. Normal chest. No pneumonia or pulmonary edema. Dictated by: Dictated on workstation # [id number]
[2020-06-08 13:54] LABS: BASOPHILS # (AUTO) 0.1 10^3/uL (0.0-0.1); BASOPHILS % (AUTO) 1 % (0-10); EOSINOPHILS # (AUTO) 0.3 10^3/uL (0.0-0.3); EOSINOPHILS % (AUTO) 3 % (0-10); HEMATOCRIT 48 % (35-52); HEMOGLOBIN 15.4 G/DL (11.5-16.0); LYMPHOCYTES # (AUTO) 2.9 X 10^3 (1.0-4.0); LYMPHOCYTES % (AUTO) 26 % (12-44); MEAN CORPUSCULAR HEMOGLOBIN 27 PG (25-34); MEAN CORPUSCULAR HGB CONC 32 G/DL (32-36); MEAN CORPUSCULAR VOLUME 82 FL (80-99); MEAN PLATELET VOLUME 10.2 FL (7.4-10.4); MONOCYTES # (AUTO) 0.7 X 10^3 (0.0-1.0); MONOCYTES % (AUTO) 6 % (0-12); NEUTROPHILS # (AUTO) 7.1 X 10^3 (1.8-7.8); NEUTROPHILS % (AUTO) 64 % (42-75); PLATELET COUNT 270 10^3/uL (130-400); WHITE BLOOD COUNT 11.1 10^3/uL (4.3-11.0)
[2020-06-08 14:00] LABS: ALANINE AMINOTRANSFERASE 52 U/L (0-55); ALBUMIN 4.2 GM/DL (3.2-4.5); ALKALINE PHOSPHATASE 64 U/L (40-136); BILIRUBIN,TOTAL 0.2 MG/DL (0.1-1.0); BUN/CREATININE RATIO 18; CARBON DIOXIDE 22 MMOL/L (21-32); CHLORIDE 106 MMOL/L (98-107); CREATININE SERUM 0.68 MG/DL (0.60-1.30); GFR ESTIMATED > 60; GLUCOSE 105 MG/DL (70-105); LIPASE 38 U/L (8-78); POTASSIUM 3.9 MMOL/L (3.6-5.0); SODIUM 140 MMOL/L (135-145); TOTAL PROTEIN 7.4 GM/DL (6.4-8.2)
[2020-06-08 14:34] LABS: AMMONIA 32 UMOL/L (11-32)
[2020-06-08 14:46] VITALS: BP 111/79
== END 2020-06-08 14:45 | disposition home or self-care (01) ==
LOC: EDUNIT# 12:58 → ER FS 13:01
DX: R10.84 Generalized abdominal pain (principal); E66.01 Morbid (severe) obesity due to excess calories; J44.9 Chronic obstructive pulmonary disease, unspecified; E78.00 Pure hypercholesterolemia, unspecified; K21.9 Gastro-esophageal reflux disease without esophagitis; F31.9 Bipolar disorder, unspecified; Z68.43 Body mass index [BMI] 50.0-59.9, adult; Z87.891 Personal history of nicotine dependence; Z79.52 Long term (current) use of systemic steroids; Z91.040 Latex allergy status; Z88.5 Allergy status to narcotic agent; Z88.8 Allergy status to other drugs, medicaments and biological substances
CPT/HCPCS: 36415; 74022; 80053; 82140; 83605; 83690; 85025; 86141

== ENCOUNTER 2020-08-19 19:17 | Emergency (ER) | payer MEDICAID ==
--- NOTE | 2020-08-19 19:34 | ED Abdominal Pain ---
General Chief Complaint: Abdominal/GI Problems Stated Complaint: ABD PAIN,NAUSEA Nursing Triage Note: Pt complaining of bilateral lower abdominal pain that started this morning Sepsis Screen: No Definite Risk History of Present Illness Date Seen by Provider: Aug 19, 2020 Time Seen by Provider: 19:31 Initial Comments 35-year-old female presents with lower abdominal pain since this morning. Pain began about 9 AM and this persisted until arrival. She has some associated nausea without vomiting, denies constipation or diarrhea. She does have a history of Crohn's and has had a history of left colon resection for diverticulitis. Also history of cholecystectomy and hysterectomy. She last ate at noon today and has had nothing since. Denies recent illness, fever or chills. Denies chest pain, swollen or painful extremities. Denies cough or shortness of air. Allergies and Home Medications Allergies Coded Allergies: buspirone (Verified Allergy, Intermediate, SEVERE ANXIETY, 11/27/17) aripiprazole (Verified Allergy, Unknown, Heart racing, 08/24/18) bismuth subsalicylate (Unverified Allergy, Unknown, NAUSEA, 11/27/17) latex (Unverified Allergy, Unknown, RASH, 11/27/17) meperidine (Unverified Allergy, Unknown, RASH, 11/27/17) promethazine (Unverified Allergy, Unknown, DIFFICULTY BREATHING, 11/27/17) Uncoded Allergies: TAPE (Adverse Reaction, Unknown, RASH, 09/15/13) Home Medications Albuterol Sulfate 0.63 Mg/3 Ml Vial.neb, 0.63 MG IH PRN, (Reported) Albuterol Sulfate 1 Puff Puff, 2 PUFF IH Q4H PRN for COUGH, (Reported) 1 PUFF = 90 MCG Albuterol Sulfate 2.5 Mg/3 Ml Vial.neb, 2 PUFF IH Q4H, (Reported) Albuterol Sulfate 1 Puff Puff, 2 PUFF IH Q4H 1 PUFF = 90 MCG Prescribed by: KENZIE FLORES on 02/25/20 0956 Atorvastatin Calcium 20 Mg Tablet, 20 MG PO HS, (Reported) Brexpiprazole 4 Mg Tablet, 4 MG PO DAILY, (Reported) Bupropion HCl 150 Mg Tablet.er, 150 MG PO BID, (Reported) Cephalexin 500 Mg Capsule, 500 MG PO TID Prescribed by: MINE JACOBS on 07/13/19 1157 Clindamycin HCl 300 Mg Capsule, 300 MG PO QID Prescribed by: DIMPLE NGUYEN on 01/04/202256 Cyclobenzaprine HCl 10 Mg Tablet, 10 MG PO TID PRN for PAIN-MODERATE (5-7), (Reported) Famotidine 40 Mg Tablet, 40 MG PO BID PRN for 1 Prescribed by: KAMLESH HICKS on 04/13/20 161 Fluconazole 200 Mg Tablet, 200 MG PO DAILY Prescribed by: DIMPLE NGUYEN on 01/04/202256 Fluticasone Propionate 9.9 Ml [place].susp, 1 SPRAY NS DAILY, (Reported) 1 SPRAY EACH NARE DAILY Hydrocodone/Acetaminophen 1 Each Tablet, 1 TAB PO Q6H Prescribed by: KINGS MORIN on 08/16/192014 Hydrocodone/Acetaminophen 1 Each Tablet, 1 TAB PO Q4-6HR Prescribed by: CONNOR GONZALEZ on 04/15/20 173 Hydrocodone/Acetaminophen 1 Each Tablet, 1 TAB PO Q4H Prescribed by: BRENT AUSTIN on 05/01/20 2305 Ibuprofen 800 Mg Tablet, 800 MG PO Q8H PRN for PAIN Prescribed by: OLY HART on 02/12/19 0621 Mag Carb/Al Hydrox/Alginic AC 355 Ml Oral.susp, 355 ML PO TID Prescribed by: KAMLESH HICKS on 04/13/20 1611 Metronidazole 500 Mg Tablet, 500 MG PO TID Prescribed by: CONNOR GONZALEZ on 04/15/20 173 Ondansetron 4 Mg Tab.rapdis, 4 MG PO Q6H PRN for NAUSEA/VOMITING Prescribed by: ROSSY KENNY on 01/01/192005 Ondansetron 4 Mg Tab.rapdis, 4 MG PO Q6H Prescribed by: KINGS MORIN on 08/16/192014 Ondansetron 4 Mg Tab.rapdis, 4 MG PO TID Prescribed by: TORRES HILL on 08/19/202052 Ondansetron HCl 4 Mg Tab, 4 MG PO TID Prescribed by: CONNOR GONZALEZ on 04/15/20 173 Oxcarbazepine 300 Mg Tablet, 900 MG PO MORNING AND EVENING, (Reported) Oxcarbazepine 300 Mg Tablet, 600 MG PO AFTERNOON, (Reported) Pantoprazole Sodium 40 Mg Tablet.dr, 40 MG PO DAILY, (Reported) Pantoprazole Sodium 20 Mg Tablet.dr, 20 MG PO DAILY Prescribed by: KAMLESH HICKS on 04/13/20 1611 Prednisone 20 Mg Tab, 60 MG PO DAILY Prescribed by: AVA BALDWIN on 12/24/19 0753 Prednisone 20 Mg Tab, 60 MG PO DAILY Prescribed by: KENZIE FLORES on 02/25/20 0956 Sennosides/Docusate Sodium 1 Each Tablet, 1 EACH PO BID Prescribed by: DIMPLE MIKE on 12/28/19 194 Tramadol HCl 50 Mg Tablet, 50 MG PO Q6H PRN for PAIN-MILD TO MODERATE, (Reported) Patient Home Medication List Home Medication List Reviewed: Yes Review of Systems Review of Systems Constitutional: No chills, No fever; malaise; No weakness EENTM: No Symptoms Reported Respiratory: No Symptoms Reported Cardiovascular: No Symptoms Reported Gastrointestinal: See HPI, Abdominal Pain; Denies Constipated, Denies Diarrhea; Nausea; Denies Poor Fluid Intake, Denies Rectal Bleeding, Denies Vomiting Genitourinary: Denies Burning, Denies Discharge, Denies Frequency, Denies Flank Pain, Denies Hematuria Musculoskeletal: No back pain, No joint pain Skin: No change in color, No rash Past Hcalrki-Jbrbhg-Hxoyum Hx Past Med/Social Hx: Reviewed Nursing Past Med/Soc Hx Patient Social History Alcohol Use: Denies Use Smoking Status: Current Everyday Smoker Type Used: Cigarettes Former Smoker, Quit: Aug 12, 2018 2nd Hand Smoke Exposure: No Recent Infectious Disease Expo: No Recent Hopitalizations: No Immunizations Up To Date Tetanus Booster (TDap): Unknown Seasonal Allergies Seasonal Allergies: No Past Medical History Surgeries: Yes (EGD's, Colonoscopys, D&C, colon resection) Abdominal, Cystectomy, Hysterectomy Respiratory: Yes Asthma, Sleep Apnea, COPD Currently Using CPAP: No Currently Using BIPAP: No Cardiac: Yes High Cholesterol Neurological: No Reproductive Disorders: No Female Reproductive Disorders: Denies 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 Sexually Transmitted Disease: No HIV/AIDS: No Genitourinary: Yes Kidney Stones Gastrointestinal: Yes Gastroesophageal Reflux, Crohns Disease, Diverticulosis, Esophagitis Musculoskeletal: Yes Arthritis, Chronic Back Pain Endocrine: Yes (DM Type II, Morbid Obesity) Diabetes, Non-Insulin dep HEENT: No Loss of Vision: Bilateral Hearing Impairment: Denies Cancer: No Psychosocial: Yes Anxiety, Bipolar, Depression Integumentary: No Blood Disorders: No Adverse Reaction/Blood Tranf: No (HAS HAD BLOOD WITH NO REACTION) Physical Exam Vital Signs Vital Signs - First Documented 08/19/20 19:19 Temp 35.9 Pulse 86 Resp 18 B/P (MAP) 132/74 (93) Pulse Ox 99 O2 Delivery Room Air Capillary Refill : Less Than 3 Seconds Height/Weight/BMI Height: 5'4.00" Weight: 262lbs. 0oz. 118.722276ex; 51.00 BMI Method:Stated General Appearance: WD/WN, no apparent distress Respiratory: chest non-tender, lungs clear, normal breath sounds Cardiovascular: regular rate, rhythm, no edema, no JVD Gastrointestinal: no organomegaly, no pulsatile mass; No distended, No guarding, No rebound; tenderness (suprapubic and RLQ); No mass, No hepatomegaly, No spleenomegaly Extremities: non-tender, normal inspection, no pedal edema, no calf tenderness Back: normal inspection, no CVA tenderness Neurologic/Psychiatric: alert, normal mood/affect Skin: normal color, warm/dry Progress/Results/Core Measures Results/Orders Lab Results Laboratory Tests Test 08/19/20 19:20 08/19/20 19:35 Range/Units Urine Color YELLOW Urine Clarity CLEAR Urine pH 7.0 5-9 Urine Specific [place] 1.020 1.016-1.022 Urine Protein NEGATIVE NEGATIVE Urine Glucose (UA) NEGATIVE NEGATIVE Urine Ketones NEGATIVE NEGATIVE Urine Nitrite NEGATIVE NEGATIVE Urine Bilirubin NEGATIVE NEGATIVE Urine Urobilinogen 0.2 < = 1.0 MG/DL Urine Leukocyte Esterase NEGATIVE NEGATIVE Urine RBC (Auto) NEGATIVE NEGATIVE Urine RBC NONE /HPF Urine WBC 0-2 /HPF Urine Squamous Epithelial Cells 5-10 /HPF Urine Crystals NONE /LPF Urine Bacteria TRACE /HPF Urine Casts NONE /LPF Urine Mucus NEGATIVE /LPF Urine Culture Indicated NO White Blood Count 14.4 H 4.3-11.0 10^3/uL Red Blood Count 5.93 H 4.35-5.85 10^6/uL Hemoglobin 15.6 11.5-16.0 G/DL Hematocrit 48 35-52 % Mean Corpuscular Volume 81 80-99 FL Mean Corpuscular Hemoglobin 26 25-34 PG Mean Corpuscular Hemoglobin Concent 33 32-36 G/DL Red Cell Distribution Width 14.6 H 10.0-14.5 % Platelet Count 278 130-400 10^3/uL Mean Platelet Volume 9.7 7.4-10.4 FL Immature Granulocyte % (Auto) 0 % Neutrophils (%) (Auto) 66 42-75 % Lymphocytes (%) (Auto) 24 12-44 % Monocytes (%) (Auto) 7 0-12 % Eosinophils (%) (Auto) 3 0-10 % Basophils (%) (Auto) 1 0-10 % Neutrophils # (Auto) 9.5 H 1.8-7.8 X 10^3 Lymphocytes # (Auto) 3.4 1.0-4.0 X 10^3 Monocytes # (Auto) 1.0 0.0-1.0 X 10^3 Eosinophils # (Auto) 0.4 H 0.0-0.3 10^3/uL Basophils # (Auto) 0.1 0.0-0.1 10^3/uL Immature Granulocyte # (Auto) 0.1 0.0-0.1 10^3/uL Neutrophils % (Manual) 67 % Lymphocytes % (Manual) 24 % Monocytes % (Manual) 3 % Eosinophils % (Manual) 5 % Basophils % (Manual) 0 % Band Neutrophils 1 % Sodium Level 139 135-145 MMOL/L Potassium Level 3.8 3.6-5.0 MMOL/L Chloride Level 103 98-107 MMOL/L Carbon Dioxide Level 24 21-32 MMOL/L Anion Gap 12 5-14 MMOL/L Blood Urea Nitrogen 15 7-18 MG/DL Creatinine 1.17 0.60-1.30 MG/DL Estimat Glomerular Filtration Rate 52 BUN/Creatinine Ratio 13 Glucose Level 125 H 70-105 MG/DL Calcium Level 9.2 8.5-10.1 MG/DL Corrected Calcium 9.2 8.5-10.1 MG/DL Total Bilirubin 0.2 0.1-1.0 MG/DL Aspartate Amino Transf (AST/SGOT) 24 5-34 U/L Alanine Aminotransferase (ALT/SGPT) 40 0-55 U/L Alkaline Phosphatase 60 40-136 U/L Total Protein 7.3 6.4-8.2 GM/DL Albumin 4.0 3.2-4.5 GM/DL My Orders Orders - ROVENSTINE,TORRES L DO Ed Iv/Invasive Line Start (08/19/20 19:34) Cbc With Automated Diff (08/19/20 19:34) Comprehensive Metabolic Panel (08/19/20 19:34) Urinalysis (08/19/20 19:34) Ns Iv 1000 Ml (Sodium Chloride 0.9%) (08/19/20 19:45) Fentanyl Injection (Sublimaze Injection (08/19/20 19:45) Ondansetron Injection (Zofran Injectio (08/19/20 19:45) Manual Differential (08/19/20 19:35) Ct Abdomen/Pelvis Wo (08/19/20 20:16) Fentanyl Injection (Sublimaze Injection (08/19/20 21:00) Ondansetron Injection (Zofran Injectio (08/19/20 21:00) Medications Given in ED Current Medications Medications Dose Ordered Sig/Christoph Route Start Time Stop Time Status Last Admin Dose Admin Fentanyl Citrate 50 mcg ONCE ONCE IVP 08/19/20 19:45 08/19/20 19:46 DC 08/19/20 19:40 50 MCG Ondansetron HCl 4 mg ONCE ONCE IVP 08/19/20 19:45 08/19/20 19:46 DC 08/19/20 19:40 4 MG Vital Signs/I&O 08/19/20 19:19 Temp 35.9 Pulse 86 Resp 18 B/P (MAP) 132/74 (93) Pulse Ox 99 O2 Delivery Room Air Blood Pressure Mean: 93 Departure Impression Primary Impression: Abdominal pain Qualified Codes: R10.30 - Lower abdominal pain, unspecified Disposition: HOME, SELF-CARE Condition: Stable Departure-Patient Inst. Decision time for Depature: 20:51 Referrals: LOPEZ SHULTZ APRN (PCP) Primary Care Physician [facility] (Family) Primary Care Physician Patient Instructions: Nausea and Vomiting, Adult, Abdominal Pain, Adult ED Add. Discharge Instructions: Call your doctor tomorrow to arrange a follow up appointment in 2 to 3 days. All discharge instructions reviewed with patient and/or family. Voiced understanding. Scripts Metronidazole (Metronidazole) 500 Mg Tablet 500 MG PO BID, #14 TAB 0 Refills Prov: TORRES HILL DO 08/19/20 Ondansetron (Ondansetron Odt) 4 Mg Tab.rapdis 4 MG PO TID for Nausea, #10 TAB Prov: TORRES HILL DO 08/19/20 Work/School Note: Work Release Form Date Seen in the Emergency Department: Aug 19, 2020 Return to Work: Aug 21, 2020 Restrictions: No Restrictions TORRES HILL DO Aug 19, 2020 19:34
[2020-08-19] MEDS ORDERED: fentaNYL INJECTION 100 MCG/2 ML AMP IVP ONE ×2 (19:45→21:00)
[2020-08-19] MEDS ORDERED: NS IV 1000 ML 1,000 ML IV SCH (19:45)
[2020-08-19] MEDS ORDERED: ONDANSETRON 4 MG/2 ML (SDV) Z0FRAN IVP ONE ×2 (19:45→21:00)
[2020-08-19 19:53] LABS: BACTERIA,URINE TRACE /HPF; BILIRUBIN,URINE NEGATIVE (NEGATIVE); CLARITY,URINE CLEAR; COLOR,URINE YELLOW; GLUCOSE, URINE (UA) NEGATIVE (NEGATIVE); KETONES,URINE NEGATIVE (NEGATIVE); LEUKOCYTE ESTERASE ,URINE NEGATIVE (NEGATIVE); NITRITE,URINE NEGATIVE (NEGATIVE); PROTEIN,URINE NEGATIVE (NEGATIVE)
[2020-08-19 19:54] LABS: HEMATOCRIT 48 % (35-52); HEMOGLOBIN 15.6 G/DL (11.5-16.0); MEAN CORPUSCULAR HEMOGLOBIN 26 PG (25-34); MEAN CORPUSCULAR HGB CONC 33 G/DL (32-36); MEAN CORPUSCULAR VOLUME 81 FL (80-99); WHITE BLOOD COUNT 14.4 10^3/uL (4.3-11.0)
[2020-08-19 19:54] LABS: WBC,URINE 0-2 /HPF
[2020-08-19 19:55] LABS: BASOPHILS # (AUTO) 0.1 10^3/uL (0.0-0.1); BASOPHILS % (AUTO) 1 % (0-10); EOSINOPHILS # (AUTO) 0.4 10^3/uL (0.0-0.3); EOSINOPHILS % (AUTO) 3 % (0-10); LYMPHOCYTES # (AUTO) 3.4 X 10^3 (1.0-4.0); LYMPHOCYTES % (AUTO) 24 % (12-44); MEAN PLATELET VOLUME 9.7 FL (7.4-10.4); MONOCYTES % (AUTO) 7 % (0-12); NEUTROPHILS # (AUTO) 9.5 X 10^3 (1.8-7.8); NEUTROPHILS % (AUTO) 66 % (42-75); PLATELET COUNT 278 10^3/uL (130-400)
[2020-08-19 20:07] LABS: BILIRUBIN,TOTAL 0.2 MG/DL (0.1-1.0); CALCIUM 9.2 MG/DL (8.5-10.1); CREATININE SERUM 1.17 MG/DL (0.60-1.30); POTASSIUM 3.8 MMOL/L (3.6-5.0)
[2020-08-19 20:08] LABS: BAND NEUTROPHILS 1 %; BASOPHILS % (MANUAL) 0 %; EOSINOPHILS % (MANUAL) 5 %; LYMPHOCYTES % (MANUAL) 24 %; MONOCYTES % (MANUAL) 3 %; NEUTROPHILS % (MANUAL) 67 %; TOTAL PROTEIN 7.3 GM/DL (6.4-8.2)
--- NOTE | 2020-08-19 20:40 | Diagnostic Imaging Report ---
PROCEDURE: CT abdomen and pelvis without contrast. TECHNIQUE: Multiple contiguous axial images were obtained through the abdomen and pelvis without the use of intravenous contrast. Auto Exposure Controls were utilized during the CT exam to meet ALARA standards for radiation dose reduction. INDICATION: Left lower quadrant pain. FINDINGS: Lung bases are clear. There is fatty infiltration of the liver. Gallbladder is surgically absent. Pancreas appears normal. Spleen is not enlarged. Kidneys and adrenals appear normal. There is no evidence of appendicitis. Small bowel is not dilated. There is diverticulosis of the colon without evidence of diverticulitis. Urinary bladder is normal. Uterus is surgically absent. There is no intraperitoneal free air or free fluid. IMPRESSION: Uncomplicated diverticulosis of the colon. No acute abnormality is seen. Dictated by: Dictated on workstation # [id number]
[2020-08-19] MEDS ORDERED: ONDA4TAB11 PO (20:53)
[2020-08-19] MEDS ORDERED: METR-145 PO (20:57)
[2020-08-19 21:06] VITALS: BP 140/64
== END 2020-08-19 21:10 | disposition home or self-care (01) ==
LOC: EDUNIT# 19:17 → ER FS 19:18
DX: R10.31 Right lower quadrant pain (principal); R11.0 Nausea; E11.9 Type 2 diabetes mellitus without complications; J44.9 Chronic obstructive pulmonary disease, unspecified; E78.00 Pure hypercholesterolemia, unspecified; G89.29 Other chronic pain; M54.9 Dorsalgia, unspecified; K21.9 Gastro-esophageal reflux disease without esophagitis; F41.9 Anxiety disorder, unspecified; F31.9 Bipolar disorder, unspecified; E66.01 Morbid (severe) obesity due to excess calories; F17.210 Nicotine dependence, cigarettes, uncomplicated; Z68.43 Body mass index [BMI] 50.0-59.9, adult; Z87.19 Personal history of other diseases of the digestive system; Z87.442 Personal history of urinary calculi; Z79.51 Long term (current) use of inhaled steroids; Z79.52 Long term (current) use of systemic steroids; Z79.891 Long term (current) use of opiate analgesic; Z79.1 Long term (current) use of non-steroidal anti-inflammatories (NSAID); Z88.8 Allergy status to other drugs, medicaments and biological substances; Z91.040 Latex allergy status; Z88.5 Allergy status to narcotic agent; Z90.49 Acquired absence of other specified parts of digestive tract; Z90.710 Acquired absence of both cervix and uterus
CPT/HCPCS: 36415; 74176; 80053; 81000; 85007; 85027

== ENCOUNTER 2020-12-09 07:02 | Emergency (ER) | payer MEDICAID ==
[~2020-12-09 07:02] MED LIST changes: +METR-145 PO
[2020-12-09 07:07] VITALS: BP 132/55
--- NOTE | 2020-12-09 07:12 | ED General ---
General Chief Complaint: Back Problems Stated Complaint: FALL; BACK INJ History of Present Illness Date Seen by Provider: Dec 09, 2020 Time Seen by Provider: 07:11 Initial Comments Patient presenting to emergency department for evaluation of multiple areas of pain status post fall. She says she was trying to put trash in a dumpster when she slipped and fell backwards in the rain yesterday and landed on her back and now she is hurting in her mid and low back as well as her right posterior ribs. She says it hurts to move her torso and walk. She denies cough shortness of breath unilateral weakness numbness tingling saddle anesthesia bowel or bladder incontinence. She says she would also like me to look at a "spider bite" on her left lower abdomen that she has had for approximately week and she has been squeezing pus out of it. Allergies and Home Medications Allergies Coded Allergies: buspirone (Verified Allergy, Intermediate, SEVERE ANXIETY, 11/27/17) aripiprazole (Verified Allergy, Unknown, Heart racing, 08/24/18) bismuth subsalicylate (Unverified Allergy, Unknown, NAUSEA, 11/27/17) latex (Unverified Allergy, Unknown, RASH, 11/27/17) meperidine (Unverified Allergy, Unknown, RASH, 11/27/17) promethazine (Unverified Allergy, Unknown, DIFFICULTY BREATHING, 11/27/17) Uncoded Allergies: TAPE (Adverse Reaction, Unknown, RASH, 09/15/13) Home Medications Albuterol Sulfate 0.63 Mg/3 Ml Vial.neb, 0.63 MG IH PRN, (Reported) Albuterol Sulfate 1 Puff Puff, 2 PUFF IH Q4H PRN for COUGH, (Reported) 1 PUFF = 90 MCG Albuterol Sulfate 2.5 Mg/3 Ml Vial.neb, 2 PUFF IH Q4H, (Reported) Albuterol Sulfate 1 Puff Puff, 2 PUFF IH Q4H 1 PUFF = 90 MCG Prescribed by: KENZIE FLORES on 02/25/20 0956 Atorvastatin Calcium 20 Mg Tablet, 20 MG PO HS, (Reported) Brexpiprazole 4 Mg Tablet, 4 MG PO DAILY, (Reported) Bupropion HCl 150 Mg Tablet.er, 150 MG PO BID, (Reported) Cephalexin 500 Mg Capsule, 500 MG PO TID Prescribed by: MINE JACOBS on 07/13/19 1157 Clindamycin HCl 300 Mg Capsule, 300 MG PO QID Prescribed by: DIMPLE NGUYEN on 01/04/202256 Cyclobenzaprine HCl 10 Mg Tablet, 10 MG PO TID PRN for PAIN-MODERATE (5-7), (Reported) Famotidine 40 Mg Tablet, 40 MG PO BID PRN for 1 Prescribed by: KAMLESH HICKS on 04/13/20 161 Fluconazole 200 Mg Tablet, 200 MG PO DAILY Prescribed by: DIMPLE NGUYEN on 01/04/202256 Fluticasone Propionate 9.9 Ml [place].susp, 1 SPRAY NS DAILY, (Reported) 1 SPRAY EACH NARE DAILY Hydrocodone/Acetaminophen 1 Each Tablet, 1 TAB PO Q6H Prescribed by: KINGS MORIN on 08/16/192014 Hydrocodone/Acetaminophen 1 Each Tablet, 1 TAB PO Q4-6HR Prescribed by: CONNOR GONZALEZ on 04/15/20 173 Hydrocodone/Acetaminophen 1 Each Tablet, 1 TAB PO Q4H Prescribed by: BRENT AUSTIN on 05/01/20 2305 Ibuprofen 800 Mg Tablet, 800 MG PO Q8H PRN for PAIN Prescribed by: OLY HART on 02/12/19 0621 Mag Carb/Al Hydrox/Alginic AC 355 Ml Oral.susp, 355 ML PO TID Prescribed by: KAMLESH HICKS on 04/13/20 161 Metronidazole 500 Mg Tablet, 500 MG PO TID Prescribed by: CONNOR GONZALEZ on 04/15/20 173 Metronidazole 500 Mg Tablet, 500 MG PO BID Prescribed by: TORRES HILL on 08/19/202056 Ondansetron 4 Mg Tab.rapdis, 4 MG PO Q6H PRN for NAUSEA/VOMITING Prescribed by: ROSSY KENNY on 01/01/192005 Ondansetron 4 Mg Tab.rapdis, 4 MG PO Q6H Prescribed by: KINGS MORIN on 08/16/192014 Ondansetron 4 Mg Tab.rapdis, 4 MG PO TID Prescribed by: TORRES HILL on 08/19/202052 Ondansetron HCl 4 Mg Tab, 4 MG PO TID Prescribed by: CONNOR GONZALEZ on 04/15/20 1739 Oxcarbazepine 300 Mg Tablet, 900 MG PO MORNING AND EVENING, (Reported) Oxcarbazepine 300 Mg Tablet, 600 MG PO AFTERNOON, (Reported) Oxycodone HCl/Acetaminophen 1 Each Tablet, 1 TAB PO Q6H Prescribed by: OLY HART on 12/09/20 0809 Pantoprazole Sodium 40 Mg Tablet.dr, 40 MG PO DAILY, (Reported) Pantoprazole Sodium 20 Mg Tablet.dr, 20 MG PO DAILY Prescribed by: KAMLESH HICKS on 04/13/20 1611 Prednisone 20 Mg Tab, 60 MG PO DAILY Prescribed by: AVA BALDWIN on 12/24/19 0753 Prednisone 20 Mg Tab, 60 MG PO DAILY Prescribed by: KENZIE FLORES on 02/25/20 0956 Sennosides/Docusate Sodium 1 Each Tablet, 1 EACH PO BID Prescribed by: DIMPLE MIKE on 12/28/19 1946 Tramadol HCl 50 Mg Tablet, 50 MG PO Q6H PRN for PAIN-MILD TO MODERATE, (Reported) Patient Home Medication List Home Medication List Reviewed: Yes Review of Systems Review of Systems Constitutional: no symptoms reported EENTM: no symptoms reported Respiratory: no symptoms reported Cardiovascular: no symptoms reported Gastrointestinal: no symptoms reported Musculoskeletal: back pain Skin: lesions Psychiatric/Neurological: No Symptoms Reported All Other Systems Reviewed Negative Unless Noted: Yes Past Vkkgzmx-Yyhtir-Kantgd Hx Immunizations Up To Date Tetanus Booster (TDap): Unknown Seasonal Allergies Seasonal Allergies: No Past Medical History Surgeries: Yes (EGD's, Colonoscopys, D&C, colon resection) Abdominal, Cystectomy, Hysterectomy Respiratory: Yes Asthma, Sleep Apnea, COPD Currently Using CPAP: No Currently Using BIPAP: No Cardiac: Yes High Cholesterol Neurological: No Reproductive Disorders: No Female 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 Sexually Transmitted Disease: No HIV/AIDS: No Genitourinary: Yes Kidney Stones Gastrointestinal: Yes Gastroesophageal Reflux, Crohns Disease, Diverticulosis, Esophagitis Musculoskeletal: Yes Arthritis, Chronic Back Pain Endocrine: Yes (DM Type II, Morbid Obesity) Diabetes, Non-Insulin dep HEENT: No Loss of Vision: Bilateral Hearing Impairment: Denies Cancer: No Psychosocial: Yes Anxiety, Bipolar, Depression Integumentary: No Blood Disorders: No Adverse Reaction/Blood Tranf: No (HAS HAD BLOOD WITH NO REACTION) Physical Exam Vital Signs Vital Signs - First Documented 12/09/20 07:07 Temp 36.2 Pulse 88 Resp 18 B/P (MAP) 132/55 (80) Pulse Ox 100 Capillary Refill : Height, Weight, BMI Height: 5'4.00" Weight: 262lbs. 0oz. 118.267421ob; 51.00 BMI Method:Stated General Appearance: No Apparent Distress, WD/WN HEENT: PERRL/EOMI Neck: Supple Respiratory: Lungs Clear, No Respiratory Distress Cardiovascular: Regular Rate, Rhythm Gastrointestinal: Non Tender, Soft Back: Vertebral Tenderness (On lower thoracic and upper lumbar midline vertebrae), Other (Right posterior ribs tender to palpation) Extremity: Normal Capillary Refill Neurologic/Psychiatric: Alert, Oriented x3, No Motor/Sensory Deficits Skin: Warm/Dry, Other (Less than 1 mm area of erythema to left lower abdomen that is slightly indurated with open small amount of purulence draining but no surrounding erythema.) Progress/Results/Core Measures Suspected Sepsis SIRS Temperature: Pulse: Respiratory Rate: Blood Pressure / Mean: Results/Orders My Orders Orders - OLY HART DO Thoracic Spine 2 View Only (12/09/20 07:16) Ribs 2-3 View Right (12/09/20 07:16) Oxycodone/Apap 5/325mg Tablet (Percocet (12/09/20 07:30) Diazepam Tablet (Valium Tablet) (12/09/20 07:30) Ketorolac Injection (Toradol Injection) (12/09/20 07:30) Lumbar Spine 2 Or 3 View (12/09/20 07:16) Medications Given in ED Current Medications Medications Dose Ordered Sig/Christoph Route Start Time Stop Time Status Last Admin Dose Admin Diazepam 5 mg ONCE ONCE PO 12/09/20 07:30 12/09/20 07:31 DC 12/09/20 07:29 5 MG Ketorolac Tromethamine 60 mg ONCE ONCE IM 12/09/20 07:30 12/09/20 07:31 DC 12/09/20 07:29 60 MG Oxycodone/ Acetaminophen 2 tab ONCE ONCE PO 12/09/20 07:30 12/09/20 07:31 DC 12/09/20 07:29 2 TAB Vital Signs/I&O 12/09/20 07:07 Temp 36.2 Pulse 88 Resp 18 B/P (MAP) 132/55 (80) Pulse Ox 100 Capillary Refill : Progress Note : Progress Note Patient with multiple areas of pain status post fall. Her x-rays appear normal and her exam is benign and she appears well with normal vital signs so she will be discharged in stable condition. She does have a small abscess that is draining to her left lower abdomen. Given her comorbidities we will start her on a short course of Bactrim. No need for me to open the wound further as it is very small and already actively draining. Patient told to follow-up primary care provider within 1 week for recheck and come back to the ED sooner with worsening pain fevers shortness of breath or other general concerns. Patient aware and agreeable with plan and verbalized understanding the above instr uctions. Departure Impression Primary Impression: Back strain Qualified Codes: S39.012A - Strain of muscle, fascia and tendon of lower back, initial encounter Additional Impressions: Rib contusion Qualified Codes: S20.211A - Contusion of right front wall of thorax, initial encounter Abdominal wall abscess Disposition: 01 HOME, SELF-CARE Condition: Stable Departure-Patient Inst. Referrals: [facility] (PCP/Family) Primary Care Physician Patient Instructions: Bruised Rib (DC) Scripts Sulfamethoxazole/Trimethoprim (Bactrim Ds Tablet) 1 Each Tablet 1 EACH PO BID for 5 Days, TAB Prov: OLY HART DO 12/09/20 Oxycodone HCl/Acetaminophen (Percocet 5-325 mg Tablet) 1 Each Tablet 1 TAB PO Q6H for PAIN-MODERATE MDD 6 TABS for 7 Days, #14 TAB Prov: OLY HART DO 12/09/20 Work/School Note: Work Release Form Date Seen in the Emergency Department: Dec 09, 2020 Return to Work: Dec 16, 2020 Restrictions: No Restrictions OLY HART DO Dec 09, 2020 07:12
[2020-12-09] MEDS ORDERED: oxyCODONE/APAP 5/325MG (PERCOCET 5) TABLET PO ONE (07:30)
[2020-12-09] MEDS ORDERED: DIAZEPAM 5 MG (VALIUM) TABLET PO ONE (07:30)
[2020-12-09] MEDS ORDERED: KETOROLAC 60 MG/2 ML VIAL IM ONE (07:30)
--- NOTE | 2020-12-09 07:37 | Diagnostic Imaging Report ---
INDICATION: Fall with back pain. AP and lateral views of the lumbar spine are obtained. FINDINGS: Lumbar spinal curvature and alignment are within normal limits. Vertebral body heights and disc spaces are maintained. There is no evidence of acute fracture. IMPRESSION: No acute lumbar spinal abnormality. Dictated by: Dictated on workstation # [id number]
--- NOTE | 2020-12-09 07:38 | Diagnostic Imaging Report ---
INDICATION: Fall with back pain. AP and lateral views of thoracic spine are obtained. FINDINGS: Thoracic spinal curvature and alignment unremarkable apart from slight right convexity curvature. There is no evidence of fracture or subluxation. Vertebral body heights and disc spaces are maintained. IMPRESSION: No evidence of acute thoracic spinal abnormality. Dictated by: Dictated on workstation # [id number]
--- NOTE | 2020-12-09 07:42 | Diagnostic Imaging Report ---
INDICATION: Fall. Right rib pain. FINDINGS: 2 views. No fractures are demonstrated. Right lung is well-aerated and clear. No pneumothorax or pleural effusion. IMPRESSION: Normal right ribs. Dictated by: Dictated on workstation # [id number]
[2020-12-09] MEDS ORDERED: OXYC1TAB87 PO (08:09)
[2020-12-09] MEDS ORDERED: SULF1TAB35 PO (08:12)
[2020-12-10] MEDS ORDERED: PRD20T PO (16:59)
[2020-12-10] MEDS ORDERED: ONDA4TAB11 PO (16:59)
[2020-12-10] MEDS ORDERED: DICY20TA10 PO (16:59)
== END 2020-12-09 08:12 | disposition home or self-care (01) ==
LOC: EDUNIT# 07:02 → ER FS 07:03
DX: S39.012A Strain of muscle, fascia and tendon of lower back, initial encounter (principal); S20.221A Contusion of right back wall of thorax, initial encounter; L02.211 Cutaneous abscess of abdominal wall; J44.9 Chronic obstructive pulmonary disease, unspecified; E78.00 Pure hypercholesterolemia, unspecified; K21.9 Gastro-esophageal reflux disease without esophagitis; E66.01 Morbid (severe) obesity due to excess calories; E11.9 Type 2 diabetes mellitus without complications; G89.29 Other chronic pain; F31.9 Bipolar disorder, unspecified; Z68.43 Body mass index [BMI] 50.0-59.9, adult; Z79.899 Other long term (current) drug therapy; Z79.52 Long term (current) use of systemic steroids; Z79.891 Long term (current) use of opiate analgesic; W01.0XXA Fall on same level from slipping, tripping and stumbling without subsequent striking against object, initial encounter
CPT/HCPCS: 71100; 72070; 72100

== ENCOUNTER 2020-12-10 15:57 | Emergency (ER) | payer MEDICAID ==
[~2020-12-10] VITALS: Ht 160 cm; Wt 134.0 kg
[~2020-12-10 15:57] MED LIST changes: +OXYC1TAB87 PO; +SULF1TAB35 PO
--- NOTE | 2020-12-10 16:05 | ED GI ---
General Chief Complaint: Abdominal/GI Problems Stated Complaint: BLOOD IN FECES,ABD PAIN Source of Information: Patient History of Present Illness Date Seen by Provider: Dec 10, 2020 Time Seen by Provider: 16:00 Initial Comments 35-year-old female presents with abdominal pain, bloody stool. Patient reports she has a history of Crohn's disease. Has had similar flares in the past. That she is follow-up with Dr. Ron in the past and had a scope. Patient reports that the pain and bloody stool started last night that is gotten worse today. That she is nauseated and has decreased appetite. She denies any fevers or chills. Allergies and Home Medications Allergies Coded Allergies: buspirone (Verified Allergy, Intermediate, SEVERE ANXIETY, 11/27/17) aripiprazole (Verified Allergy, Unknown, Heart racing, 08/24/18) bismuth subsalicylate (Unverified Allergy, Unknown, NAUSEA, 11/27/17) latex (Unverified Allergy, Unknown, RASH, 11/27/17) meperidine (Unverified Allergy, Unknown, RASH, 11/27/17) promethazine (Unverified Allergy, Unknown, DIFFICULTY BREATHING, 11/27/17) Uncoded Allergies: TAPE (Adverse Reaction, Unknown, RASH, 09/15/13) Home Medications Albuterol Sulfate 0.63 Mg/3 Ml Vial.neb, 0.63 MG IH PRN, (Reported) Albuterol Sulfate 1 Puff Puff, 2 PUFF IH Q4H PRN for COUGH, (Reported) 1 PUFF = 90 MCG Albuterol Sulfate 2.5 Mg/3 Ml Vial.neb, 2 PUFF IH Q4H, (Reported) Albuterol Sulfate 1 Puff Puff, 2 PUFF IH Q4H 1 PUFF = 90 MCG Prescribed by: KENZIE FLORES on 02/25/20 0956 Atorvastatin Calcium 20 Mg Tablet, 20 MG PO HS, (Reported) Brexpiprazole 4 Mg Tablet, 4 MG PO DAILY, (Reported) Bupropion HCl 150 Mg Tablet.er, 150 MG PO BID, (Reported) Cephalexin 500 Mg Capsule, 500 MG PO TID Prescribed by: MINE JACOBS on 07/13/19 1157 Clindamycin HCl 300 Mg Capsule, 300 MG PO QID Prescribed by: DIMPLE NGUYEN on 01/04/202256 Cyclobenzaprine HCl 10 Mg Tablet, 10 MG PO TID PRN for PAIN-MODERATE (5-7), (Reported) Dicyclomine HCl 20 Mg Tablet, 20 MG PO QID Prescribed by: ROSSY KENNY on 12/10/201658 Famotidine 40 Mg Tablet, 40 MG PO BID PRN for 1 Prescribed by: KAMLESH HICKS on 04/13/20 161 Fluconazole 200 Mg Tablet, 200 MG PO DAILY Prescribed by: DIMPLE NGUYEN on 01/04/202256 Fluticasone Propionate 9.9 Ml [place].susp, 1 SPRAY NS DAILY, (Reported) 1 SPRAY EACH NARE DAILY Hydrocodone/Acetaminophen 1 Each Tablet, 1 TAB PO Q6H Prescribed by: KINGS MORIN on 08/16/192014 Hydrocodone/Acetaminophen 1 Each Tablet, 1 TAB PO Q4-6HR Prescribed by: CONNOR GONZALEZ on 04/15/20 173 Hydrocodone/Acetaminophen 1 Each Tablet, 1 TAB PO Q4H Prescribed by: BRENT AUSTIN on 05/01/20 2305 Ibuprofen 800 Mg Tablet, 800 MG PO Q8H PRN for PAIN Prescribed by: OLY HART on 02/12/19 0621 Mag Carb/Al Hydrox/Alginic AC 355 Ml Oral.susp, 355 ML PO TID Prescribed by: KAMLESH HICKS on 04/13/20 161 Metronidazole 500 Mg Tablet, 500 MG PO TID Prescribed by: CONNOR GONZALEZ on 04/15/20 173 Metronidazole 500 Mg Tablet, 500 MG PO BID Prescribed by: TORRES HILL on 08/19/202056 Ondansetron 4 Mg Tab.rapdis, 4 MG PO Q6H PRN for NAUSEA/VOMITING Prescribed by: ROSSY KENNY on 01/01/192005 Ondansetron 4 Mg Tab.rapdis, 4 MG PO Q6H Prescribed by: KINGS MORIN on 08/16/192014 Ondansetron 4 Mg Tab.rapdis, 4 MG PO TID Prescribed by: TORRES HILL on 08/19/202052 Ondansetron 4 Mg Tab.rapdis, 4 MG PO Q6H PRN for NAUSEA/VOMITING Prescribed by: ROSSY KENNY on 7/2/21 1659 Ondansetron HCl 4 Mg Tab, 4 MG PO TID Prescribed by: CONNOR GONZALEZ on 04/15/20 1739 Oxcarbazepine 300 Mg Tablet, 900 MG PO MORNING AND EVENING, (Reported) Oxcarbazepine 300 Mg Tablet, 600 MG PO AFTERNOON, (Reported) Oxycodone HCl/Acetaminophen 1 Each Tablet, 1 TAB PO Q6H Prescribed by: OLY HART on 12/09/20 0809 Pantoprazole Sodium 40 Mg Tablet.dr, 40 MG PO DAILY, (Reported) Pantoprazole Sodium 20 Mg Tablet.dr, 20 MG PO DAILY Prescribed by: KAMLESH HICKS on 04/13/20 1611 Prednisone 20 Mg Tab, 60 MG PO DAILY Prescribed by: AVA BALDWIN on 12/24/19 0753 Prednisone 20 Mg Tab, 60 MG PO DAILY Prescribed by: KENZIE FLORES on 02/25/20 0956 Prednisone 20 Mg Tab, 40 MG PO DAILY Prescribed by: ROSSY KENNY on 12/10/20 1659 Sennosides/Docusate Sodium 1 Each Tablet, 1 EACH PO BID Prescribed by: DIMPLE MIKE on 12/28/19 1946 Sulfamethoxazole/Trimethoprim 1 Each Tablet, 1 EACH PO BID Prescribed by: OLY HART on 12/09/20 0812 Tramadol HCl 50 Mg Tablet, 50 MG PO Q6H PRN for PAIN-MILD TO MODERATE, (Reported) Patient Home Medication List Home Medication List Reviewed: Yes Review of Systems Review of Systems Constitutional: No chills, No fever; malaise EENTM: No Symptoms Reported Respiratory: Denies Cough, Denies Shortness of Air Cardiovascular: Denies Chest Pain, Denies Irregular Heart Rate, Denies Lightheadedness Gastrointestinal: Abdominal Pain, Nausea, Rectal Bleeding Genitourinary: No Symptoms Reported Musculoskeletal: no symptoms reported Skin: no symptoms reported Psychiatric/Neurological: No Symptoms Reported Endocrine: No Symptoms Reported Past Azwkmva-Rhmenm-Itzaef Hx Immunizations Up To Date Tetanus Booster (TDap): Unknown Seasonal Allergies Seasonal Allergies: No Past Medical History Surgeries: Yes (EGD's, Colonoscopys, D&C, colon resection) Abdominal, Cystectomy, Hysterectomy Respiratory: Yes Asthma, Sleep Apnea, COPD Currently Using CPAP: No Currently Using BIPAP: No Cardiac: Yes High Cholesterol Neurological: No Reproductive Disorders: No 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 Sexually Transmitted Disease: No HIV/AIDS: No Genitourinary: Yes Kidney Stones Gastrointestinal: Yes Gastroesophageal Reflux, Crohns Disease, Diverticulosis, Esophagitis Musculoskeletal: Yes Arthritis, Chronic Back Pain Endocrine: Yes (DM Type II, Morbid Obesity) Diabetes, Non-Insulin dep HEENT: No Loss of Vision: Bilateral Hearing Impairment: Denies Cancer: No Psychosocial: Yes Anxiety, Bipolar, Depression Integumentary: No Blood Disorders: No Adverse Reaction/Blood Tranf: No (HAS HAD BLOOD WITH NO REACTION) Physical Exam Vital Signs Vital Signs - First Documented 12/10/20 16:10 Temp 36.8 Pulse 96 Resp 20 B/P (MAP) 145/95 (112) Pulse Ox 96 O2 Delivery Room Air Capillary Refill : Height/Weight/BMI Height: 5'4.00" Weight: 262lbs. 0oz. 118.375344yq; 51.00 BMI Method:Stated General Appearance: mild distress, obese Respiratory: lungs clear, normal breath sounds, no respiratory distress Cardiovascular: normal peripheral pulses, regular rate, rhythm Gastrointestinal: soft, tenderness (bilateral lower abd ) Extremities: non-tender Neurologic/Psychiatric: alert, normal mood/affect, oriented x 3 Skin: normal color, warm/dry, tattoos/piercings Progress/Results/Core Measures Results/Orders Lab Results Laboratory Tests Test 12/10/20 16:00 12/10/20 16:38 Range/Units White Blood Count 13.8 H 4.3-11.0 10^3/uL Red Blood Count 5.95 H 4.35-5.85 10^6/uL Hemoglobin 15.9 11.5-16.0 G/DL Hematocrit 48 35-52 % Mean Corpuscular Volume 81 80-99 FL Mean Corpuscular Hemoglobin 27 25-34 PG Mean Corpuscular Hemoglobin Concent 33 32-36 G/DL Red Cell Distribution Width 17.0 H 10.0-14.5 % Platelet Count 148 130-400 10^3/uL Mean Platelet Volume 10.3 7.4-10.4 FL Neutrophils (%) (Auto) 66 42-75 % Lymphocytes (%) (Auto) 26 12-44 % Monocytes (%) (Auto) 6 0-12 % Eosinophils (%) (Auto) 2 0-10 % Basophils (%) (Auto) 0 0-10 % Neutrophils # (Auto) 9.1 H 1.8-7.8 X 10^3 Lymphocytes # (Auto) 3.6 1.0-4.0 X 10^3 Monocytes # (Auto) 0.9 0.0-1.0 X 10^3 Eosinophils # (Auto) 0.2 0.0-0.3 10^3/uL Basophils # (Auto) 0.0 0.0-0.1 10^3/uL Erythrocyte Sedimentation Rate 15 0-20 MM/HR Sodium Level 139 135-145 MMOL/L Potassium Level 4.7 3.6-5.0 MMOL/L Chloride Level 103 98-107 MMOL/L Carbon Dioxide Level 23 21-32 MMOL/L Anion Gap 13 5-14 MMOL/L Blood Urea Nitrogen 7 7-18 MG/DL Creatinine 0.67 0.60-1.30 MG/DL Estimat Glomerular Filtration Rate > 60 BUN/Creatinine Ratio 10 Glucose Level 84 70-105 MG/DL Calcium Level 9.0 8.5-10.1 MG/DL Corrected Calcium 9.2 8.5-10.1 MG/DL Total Bilirubin 0.3 0.1-1.0 MG/DL Aspartate Amino Transf (AST/SGOT) 33 5-34 U/L Alanine Aminotransferase (ALT/SGPT) 39 0-55 U/L Alkaline Phosphatase 69 40-136 U/L C-Reactive Protein 4.28 H <0.50 MG/DL Total Protein 7.3 6.4-8.2 GM/DL Albumin 3.8 3.2-4.5 GM/DL Urine Color YELLOW Urine Clarity CLEAR Urine pH 7.0 5-9 Urine Specific [place] 1.020 1.016-1.022 Urine Protein NEGATIVE NEGATIVE Urine Glucose (UA) NEGATIVE NEGATIVE Urine Ketones TRACE H NEGATIVE Urine Nitrite NEGATIVE NEGATIVE Urine Bilirubin NEGATIVE NEGATIVE Urine Urobilinogen 0.2 < = 1.0 MG/DL Urine Leukocyte Esterase NEGATIVE NEGATIVE Urine RBC (Auto) TRACE-I NEGATIVE Urine RBC 0-2 /HPF Urine WBC 0-2 /HPF Urine Squamous Epithelial Cells 10-25 H /HPF Urine Crystals NONE /LPF Urine Bacteria FEW H /HPF Urine Casts NONE /LPF Urine Mucus NEGATIVE /LPF Urine Culture Indicated NO My Orders Orders - FLAKITA KENNYVOR L DO Cbc With Automated Diff (12/10/20 16:06) Comprehensive Metabolic Panel (12/10/20 16:06) Ua Culture If Indicated (12/10/20 16:06) Erythrocyte Sedimentation Rate (12/10/20 16:06) Crp Fs (12/10/20 16:06) Abdomen Flat & Upright/Decub (12/10/20 16:06) Ondansetron Injection (Zofran Injectio (12/10/20 16:15) Lactated Ringers (Lr 1000 Ml Iv Solution (12/10/20 16:06) Ed Iv/Invasive Line Start (12/10/20 16:06) Dicyclomine Injection (Bentyl Injection) (12/10/20 16:15) Methylprednisolone Sod Succ (Solu-Medrol (12/10/20 16:54) Medications Given in ED Current Medications Medications Dose Ordered Sig/Christoph Route Start Time Stop Time Status Last Admin Dose Admin Dicyclomine HCl 20 mg ONCE ONCE IM 12/10/20 16:15 12/10/20 16:16 DC 12/10/20 16:19 20 MG Ondansetron HCl 4 mg ONCE ONCE IVP 12/10/20 16:15 12/10/20 16:16 DC 12/10/20 16:19 4 MG Vital Signs/I&O 12/10/20 16:10 Temp 36.8 Pulse 96 Resp 20 B/P (MAP) 145/95 (112) Pulse Ox 96 O2 Delivery Room Air Progress Progress Note : Progress Note Patient with minimally elevated CRP and WBC with no elevation of her ESR. Patient with a history of Crohn's and may be early Crohn's flare. I will prescribe her prednisone x2 days in addition to 125 mg given here in the ER. I will prescribe her Bentyl and Zofran. She should follow-up with Dr. Ron next week and return to the ER as needed. X-ray shows no acute findings or indications of small bowel obstruction Diagnostic Imaging Diagonstic Imaging: Xray Plain Films/CT/US/NM/MRI: abdomen Comments Draft Date of Exam:12/10/20 ABDOMEN FLAT & UPRIGHT/DECUB INDICATION: Abdominal pain. COMPARISON: 12/28/2019. FINDINGS: Supine and upright views the abdomen demonstrate nonobstructive small bowel gas pattern. Mild amount of air and stool are seen scattered throughout the colon. No abnormal air-fluid levels or large collection of free intraperitoneal air is seen. No abnormal extraosseous calcifications or radiopaque foreign bodies are identified. Bony structures are age-appropriate. IMPRESSION: 1. Nonobstructive small bowel gas patte Departure Impression Primary Impression: Hx of Crohn's disease Additional Impression: Abdominal pain Qualified Codes: R10.30 - Lower abdominal pain, unspecified Disposition: 01 HOME, SELF-CARE Condition: Stable Departure-Patient Inst. Referrals: [facility] [place], [place] (PCP/Family) Primary Care Physician Patient Instructions: Crohn's Disease Diet, Crohn's Disease in Adults Add. Discharge Instructions: Follow-up with Dr. Ron next week for recheck of today's symptoms All discharge instructions reviewed with patient and/or family. Voiced understanding. Scripts Ondansetron (Ondansetron Odt) 4 Mg Tab.rapdis 4 MG PO Q6H PRN for NAUSEA/VOMITING, #20 TAB 0 Refills Prov: ROSSY KENNY DO 12/10/20 Dicyclomine HCl (Dicyclomine HCl) 20 Mg Tablet 20 MG PO QID, #30 TAB Prov: ROSSY KENNY DO 12/10/20 Prednisone (Prednisone) 20 Mg Tab 40 MG PO DAILY, #6 TAB 0 Refills Prov: ROSSY KENNY DO 12/10/20 ROSSY KENNY DO Dec 10, 2020 16:05
[2020-12-10] MEDS ORDERED: LACTATED RINGERS 1,000 ML IV STA (16:06)
[2020-12-10 16:10] VITALS: BP 145/95
[2020-12-10] MEDS ORDERED: ONDANSETRON 4 MG/2 ML (SDV) Z0FRAN IVP ONE (16:15)
[2020-12-10] MEDS ORDERED: DICYCLOMINE 10 MG/ML (BENTYL) 2 ML AMP IM ONE (16:15)
[2020-12-10 16:17] LABS: BASOPHILS % (AUTO) 0 % (0-10); EOSINOPHILS # (AUTO) 0.2 10^3/uL (0.0-0.3); EOSINOPHILS % (AUTO) 2 % (0-10); HEMATOCRIT 48 % (35-52); HEMOGLOBIN 15.9 G/DL (11.5-16.0); LYMPHOCYTES # (AUTO) 3.6 X 10^3 (1.0-4.0); LYMPHOCYTES % (AUTO) 26 % (12-44); MEAN CORPUSCULAR HEMOGLOBIN 27 PG (25-34); MEAN CORPUSCULAR HGB CONC 33 G/DL (32-36); MEAN CORPUSCULAR VOLUME 81 FL (80-99); MEAN PLATELET VOLUME 10.3 FL (7.4-10.4); MONOCYTES # (AUTO) 0.9 X 10^3 (0.0-1.0); MONOCYTES % (AUTO) 6 % (0-12); NEUTROPHILS # (AUTO) 9.1 X 10^3 (1.8-7.8); NEUTROPHILS % (AUTO) 66 % (42-75); PLATELET COUNT 148 10^3/uL (130-400); WHITE BLOOD COUNT 13.8 10^3/uL (4.3-11.0)
[2020-12-10 16:37] LABS: CARBON DIOXIDE 23 MMOL/L (21-32); CHLORIDE 103 MMOL/L (98-107); ERYTHROCYTE SEDIMENTATION RATE 15 MM/HR (0-20); POTASSIUM 4.7 MMOL/L (3.6-5.0); SODIUM 139 MMOL/L (135-145)
[2020-12-10 16:38] LABS: ALANINE AMINOTRANSFERASE 39 U/L (0-55); ALBUMIN 3.8 GM/DL (3.2-4.5); ALKALINE PHOSPHATASE 69 U/L (40-136); BILIRUBIN,TOTAL 0.3 MG/DL (0.1-1.0); BUN/CREATININE RATIO 10; CREATININE SERUM 0.67 MG/DL (0.60-1.30); GFR ESTIMATED > 60; GLUCOSE 84 MG/DL (70-105); TOTAL PROTEIN 7.3 GM/DL (6.4-8.2)
--- NOTE | 2020-12-10 16:43 | Diagnostic Imaging Report ---
INDICATION: Abdominal pain. COMPARISON: 12/28/2019. FINDINGS: Supine and upright views the abdomen demonstrate nonobstructive small bowel gas pattern. Mild amount of air and stool are seen scattered throughout the colon. No abnormal air-fluid levels or large collection of free intraperitoneal air is seen. No abnormal extraosseous calcifications or radiopaque foreign bodies are identified. Bony structures are age-appropriate. IMPRESSION: 1. Nonobstructive small bowel gas pattern. Dictated by: Dictated on workstation # [id number]
[2020-12-10 16:46] LABS: BACTERIA,URINE FEW /HPF; BILIRUBIN,URINE NEGATIVE (NEGATIVE); CLARITY,URINE CLEAR; COLOR,URINE YELLOW; GLUCOSE, URINE (UA) NEGATIVE (NEGATIVE); KETONES,URINE TRACE (NEGATIVE); LEUKOCYTE ESTERASE ,URINE NEGATIVE (NEGATIVE); NITRITE,URINE NEGATIVE (NEGATIVE); PROTEIN,URINE NEGATIVE (NEGATIVE); RBC,URINE 0-2 /HPF; WBC,URINE 0-2 /HPF
[2020-12-10] MEDS ORDERED: methylPREDNISolone 125 MG (Solu-MEDROL) VIAL IV STA (16:54)
[2020-12-10] MEDS ORDERED: DICY20TA10 PO (16:59)
[2020-12-10] MEDS ORDERED: ONDA4TAB11 PO (16:59)
[2020-12-10] MEDS ORDERED: PRD20T PO (16:59)
== END 2020-12-10 17:10 | disposition home or self-care (01) ==
LOC: EDUNIT# 15:57 → ER FS 15:58
DX: R10.30 Lower abdominal pain, unspecified (principal); E11.9 Type 2 diabetes mellitus without complications; J44.9 Chronic obstructive pulmonary disease, unspecified; E78.00 Pure hypercholesterolemia, unspecified; G89.29 Other chronic pain; M54.9 Dorsalgia, unspecified; K21.9 Gastro-esophageal reflux disease without esophagitis; F41.9 Anxiety disorder, unspecified; F31.9 Bipolar disorder, unspecified; E66.01 Morbid (severe) obesity due to excess calories; Z87.19 Personal history of other diseases of the digestive system; Z68.43 Body mass index [BMI] 50.0-59.9, adult; Z79.51 Long term (current) use of inhaled steroids; Z79.1 Long term (current) use of non-steroidal anti-inflammatories (NSAID); Z79.891 Long term (current) use of opiate analgesic; Z79.52 Long term (current) use of systemic steroids; Z79.899 Other long term (current) drug therapy
CPT/HCPCS: 36415; 74019; 80053; 81000; 85025; 85652; 86141

== ENCOUNTER 2020-12-28 16:55 | Emergency (ER) | payer MEDICAID ==
[~2020-12-28] VITALS: Ht 162.5 cm; Wt 134.9 kg
[~2020-12-28 16:55] MED LIST changes: -SULF1TAB35 PO; +SULF1TAB38 PO
[2020-12-28 17:18] VITALS: BP 123/75
--- NOTE | 2020-12-28 17:44 | ED General ---
General Stated Complaint: LT SIDE PAIN Source of Information: Patient History of Present Illness Date Seen by Provider: Dec 28, 2020 Time Seen by Provider: 17:00 Initial Comments Patient is a 35-year-old female presents with left lower flank pain starting after a coughing fit yesterday afternoon. Patient reports left paravertebral lumbar back pain rating to left flank. Pain is worse with palpation and trunk rotation and movement. Pain is moderate to severe reproduces with movement. It is nonmigratory. Patient denies midline back pain. She denies shortness of breath. She was evaluated by her PCP for bronchitis yesterday and prescribed Augmentin and prednisone and is taking tramadol. 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 No fever chills, nausea vomiting or sweats. No other acute symptoms or complaints. Timing/Duration: 12 Hours Severity: Moderate Modifying Factors: improves with Movement Associated Systoms: Other Allergies and Home Medications Allergies Coded Allergies: buspirone (Verified Allergy, Intermediate, SEVERE ANXIETY, 11/27/17) aripiprazole (Verified Allergy, Unknown, Heart racing, 08/24/18) bismuth subsalicylate (Unverified Allergy, Unknown, NAUSEA, 11/27/17) latex (Unverified Allergy, Unknown, RASH, 11/27/17) meperidine (Unverified Allergy, Unknown, RASH, 11/27/17) promethazine (Unverified Allergy, Unknown, DIFFICULTY BREATHING, 11/27/17) Uncoded Allergies: TAPE (Adverse Reaction, Unknown, RASH, 09/15/13) Home Medications Albuterol Sulfate 0.63 Mg/3 Ml Vial.neb, 0.63 MG IH PRN, (Reported) Albuterol Sulfate 1 Puff Puff, 2 PUFF IH Q4H PRN for COUGH, (Reported) 1 PUFF = 90 MCG Albuterol Sulfate 2.5 Mg/3 Ml Vial.neb, 2 PUFF IH Q4H, (Reported) Albuterol Sulfate 1 Puff Puff, 2 PUFF IH Q4H 1 PUFF = 90 MCG Prescribed by: KEZNIE FLORES on 02/25/20 0956 Atorvastatin Calcium 20 Mg Tablet, 20 MG PO HS, (Reported) Brexpiprazole 4 Mg Tablet, 4 MG PO DAILY, (Reported) Bupropion HCl 150 Mg Tablet.er, 150 MG PO BID, (Reported) Cephalexin 500 Mg Capsule, 500 MG PO TID Prescribed by: MINE JACOBS on 07/13/19 1157 Clindamycin HCl 300 Mg Capsule, 300 MG PO QID Prescribed by: DIMPLE NGUYEN on 01/04/202256 Cyclobenzaprine HCl 10 Mg Tablet, 10 MG PO TID PRN for PAIN-MODERATE (5-7), (Reported) Dicyclomine HCl 20 Mg Tablet, 20 MG PO QID Prescribed by: ROSSY KENNY on 12/10/20 165 Famotidine 40 Mg Tablet, 40 MG PO BID PRN for 1 Prescribed by: KAMLESH HICKS on 04/13/20 161 Fluconazole 200 Mg Tablet, 200 MG PO DAILY Prescribed by: DIMPLE NGUYEN on 01/04/202256 Fluticasone Propionate 9.9 Ml [place].susp, 1 SPRAY NS DAILY, (Reported) 1 SPRAY EACH NARE DAILY Hydrocodone/Acetaminophen 1 Each Tablet, 1 TAB PO Q6H Prescribed by: KINGS MORIN on 08/16/192014 Hydrocodone/Acetaminophen 1 Each Tablet, 1 TAB PO Q4-6HR Prescribed by: CONNOR GONZALEZ on 04/15/20 173 Hydrocodone/Acetaminophen 1 Each Tablet, 1 TAB PO Q4H Prescribed by: BRENT AUSTIN on 05/01/20 2305 Ibuprofen 800 Mg Tablet, 800 MG PO Q8H PRN for PAIN Prescribed by: OLY HART on 02/12/19 0621 Mag Carb/Al Hydrox/Alginic AC 355 Ml Oral.susp, 355 ML PO TID Prescribed by: KAMLESH HICKS on 04/13/20 161 Metronidazole 500 Mg Tablet, 500 MG PO TID Prescribed by: CONNOR GONZALEZ on 04/15/20 173 Metronidazole 500 Mg Tablet, 500 MG PO BID Prescribed by: TORRES HILL on 08/19/202056 Ondansetron 4 Mg Tab.rapdis, 4 MG PO Q6H PRN for NAUSEA/VOMITING Prescribed by: ROSSY KENNY on 01/01/192005 Ondansetron 4 Mg Tab.rapdis, 4 MG PO Q6H Prescribed by: KINGS MORIN on 08/16/192014 Ondansetron 4 Mg Tab.rapdis, 4 MG PO TID Prescribed by: TORRES HILL on 08/19/202052 Ondansetron 4 Mg Tab.rapdis, 4 MG PO Q6H PRN for NAUSEA/VOMITING Prescribed by: ROSSY KENNY on 12/10/20 165 Ondansetron HCl 4 Mg Tab, 4 MG PO TID Prescribed by: CONNOR GONZALEZ on 04/15/20 1739 Oxcarbazepine 300 Mg Tablet, 900 MG PO MORNING AND EVENING, (Reported) Oxcarbazepine 300 Mg Tablet, 600 MG PO AFTERNOON, (Reported) Oxycodone HCl/Acetaminophen 1 Each Tablet, 1 TAB PO Q6H Prescribed by: OLY HART on 12/09/20 0809 Pantoprazole Sodium 40 Mg Tablet.dr, 40 MG PO DAILY, (Reported) Pantoprazole Sodium 20 Mg Tablet.dr, 20 MG PO DAILY Prescribed by: KAMLESH HICKS on 04/13/20 1611 Prednisone 20 Mg Tab, 60 MG PO DAILY Prescribed by: AVA BALDWIN on 12/24/19 0753 Prednisone 20 Mg Tab, 60 MG PO DAILY Prescribed by: KENZIE FLORES on 02/25/20 0956 Prednisone 20 Mg Tab, 40 MG PO DAILY Prescribed by: ROSSY KENNY on 12/10/20 165 Sennosides/Docusate Sodium 1 Each Tablet, 1 EACH PO BID Prescribed by: DIMPLE MIKE on 12/28/19 1946 Sulfamethoxazole/Trimethoprim 1 Each Tablet, 1 EACH PO BID Prescribed by: OLY HART on 12/09/20 0812 Tramadol HCl 50 Mg Tablet, 50 MG PO Q6H PRN for PAIN-MILD TO MODERATE, (Reported) Patient Home Medication List Home Medication List Reviewed: Yes Review of Systems Review of Systems Constitutional: see HPI EENTM: see HPI Respiratory: see HPI Cardiovascular: see HPI Gastrointestinal: see HPI Genitourinary: see HPI Musculoskeletal: see HPI Skin: see HPI Psychiatric/Neurological: See HPI Hematologic/Lymphatic: See HPI Immunological/Allergic: see HPI All Other Systems Reviewed Negative Unless Noted: Yes Past Izjpoci-Ouiosd-Xtrhdg Hx Immunizations Up To Date Tetanus Booster (TDap): Unknown Seasonal Allergies Seasonal Allergies: No Past Medical History Surgeries: Yes (EGD's, Colonoscopys, D&C, colon resection) Abdominal, Cystectomy, Hysterectomy Respiratory: Yes Asthma, Sleep Apnea, COPD Currently Using CPAP: No Currently Using BIPAP: No Cardiac: Yes High Cholesterol Neurological: No Reproductive Disorders: No 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 Sexually Transmitted Disease: No HIV/AIDS: No Genitourinary: Yes Kidney Stones Gastrointestinal: Yes Gastroesophageal Reflux, Crohns Disease, Diverticulosis, Esophagitis Musculoskeletal: Yes Arthritis, Chronic Back Pain Endocrine: Yes (DM Type II, Morbid Obesity) Diabetes, Non-Insulin dep HEENT: No Loss of Vision: Bilateral Hearing Impairment: Denies Cancer: No Psychosocial: Yes Anxiety, Bipolar, Depression Integumentary: No Blood Disorders: No Adverse Reaction/Blood Tranf: No (HAS HAD BLOOD WITH NO REACTION) Physical Exam Vital Signs Capillary Refill : Height, Weight, BMI Height: 5'4.00" Weight: 262lbs. 0oz. 118.339797nx; 52.00 BMI Method:Stated General Appearance: No Apparent Distress, WD/WN, Anxious Eyes: Bilateral Eye Normal Inspection, Bilateral Eye PERRL, Bilateral Eye EOMI HEENT: PERRL/EOMI, Normal ENT Inspection, Pharynx Normal Neck: Non Tender, Supple Respiratory: Chest Non Tender, Lungs Clear, Normal Breath Sounds, No Accessory Muscle Use, No Respiratory Distress Cardiovascular: Regular Rate, Rhythm, No Edema Gastrointestinal: Non Tender, Soft Back: No CVA Tenderness, No Vertebral Tenderness, Other (Left lower lumbar paravertebral/lateral flank pain tenderness reproducing complaint. No crepitus.) Extremity: Non Tender Neurologic/Psychiatric: Alert, Oriented x3 Skin: Normal Color, Warm/Dry Focused Exam Sepsis Stage: Ruled Out Progress/Results/Core Measures Suspected Sepsis SIRS Temperature: Pulse: Respiratory Rate: Blood Pressure / Mean: Results/Orders My Orders Orders - AVA BALDWIN DO Hydrocodone/Apap 5/325 Tablet (Lortab 5 (12/28/20 17:45) Vital Signs/I&O Capillary Refill : Departure Communication (Admissions) Symptoms consistent with bronchitis with chest wall sprain. Possible herniated disc although patient does not have radiculopathy and has localized tenderness over distribution of flank. Pain addressed. Recommendation is continued home therapeutic and supportive care with PCP follow-up in the next 1 to 2 days. Courtesy work note provided. Impression Primary Impression: Left flank pain Additional Impression: Bronchitis Disposition: 01 HOME, SELF-CARE Condition: Stable Departure-Patient Inst. Decision time for Depature: 17:43 Referrals: VALERIE GILES APRN (PCP) Primary Care Physician [facility] (Family) Primary Care Physician Patient Instructions: Acute Bronchitis, Adult (DC), Flank Pain ED Add. Discharge Instructions: Please continue home medications. Avoid strenuous physical activity and heavy lifting. Stay off work today and tomorrow. Follow-up with your PCP in 1 to 2 days for reevaluation. Work/School Note: Work Release Form Date Seen in the Emergency Department: Dec 28, 2020 Return to Work: Dec 30, 2020 Restrictions: No Restrictions AVA BALDWIN DO Dec 28, 2020 17:44
[2020-12-28] MEDS ORDERED: HYDROcodone/APAP 5 MG/325 MG (LORTAB) TAB PO ONE (17:45)
== END 2020-12-28 17:47 | disposition home or self-care (01) ==
LOC: EDUNIT# 16:55 → ER FS 16:59
DX: R10.32 Left lower quadrant pain (principal); J40 Bronchitis, not specified as acute or chronic; E66.01 Morbid (severe) obesity due to excess calories; J44.9 Chronic obstructive pulmonary disease, unspecified; G47.30 Sleep apnea, unspecified; E78.00 Pure hypercholesterolemia, unspecified; F31.9 Bipolar disorder, unspecified; E11.9 Type 2 diabetes mellitus without complications; K21.9 Gastro-esophageal reflux disease without esophagitis; Z68.43 Body mass index [BMI] 50.0-59.9, adult; Z79.899 Other long term (current) drug therapy; Z79.52 Long term (current) use of systemic steroids
CPT/HCPCS: 99283

== ENCOUNTER → 2020-12-31 | Outpatient (CLI) | payer MEDICAID ==
--- NOTE | 2020-12-31 11:21 | Diagnostic Imaging Report ---
Indication: Left-sided chest wall pain after coughing and a popping sensation. Findings: The lungs are clear. There is no failure, effusion or pneumothorax. Cardiomediastinal and hilar contours normal. There is no free air beneath the diaphragms. Dedicated oblique left rib series showed no cortical step-off or suspicious bony lucency. No abnormal periosteal reaction. No bony destructive process or fracture deformity could be identified. Impression: Unremarkable frontal chest and left ribs series. Dictated by: Dictated on workstation # [id number]
== END ==
LOC: RAD FS 09:43
PROVIDERS: ATTEND Nurse Practitioner Family
DX: R07.81 Pleurodynia (principal)
CPT/HCPCS: 71101

== ENCOUNTER 2021-02-23 16:28 | Emergency (ER) | payer MEDICAID ==
[~2021-02-23] VITALS: Ht 162.6 cm; Wt 125.2 kg
--- NOTE | 2021-02-23 16:33 | ED Chest Pain ---
General Chief Complaint: Chest Pain Stated Complaint: CP,LT SIDE ARM/SHOULDER PAIN History of Present Illness Date Seen by Provider: Feb 23, 2021 Time Seen by Provider: 16:33 Initial Comments 35-year-old female presents with left-sided chest pain. She reports that started at 8:00 this morning she has little bit of pain in her left arm and shoulder also. She has a feeling of shortness of breath. Patient reports that she received her second Pfizer dose yesterday and is unsure if is related. She states that the pain has been present most of the day. She does state that she smokes. She reports that she is got some nausea, some diarrhea but no vomiting. No reports of any fever or chills Allergies and Home Medications Allergies Coded Allergies: buspirone (Verified Allergy, Intermediate, SEVERE ANXIETY, 11/27/17) aripiprazole (Verified Allergy, Unknown, Heart racing, 08/24/18) bismuth subsalicylate (Unverified Allergy, Unknown, NAUSEA, 11/27/17) latex (Unverified Allergy, Unknown, RASH, 11/27/17) meperidine (Unverified Allergy, Unknown, RASH, 11/27/17) promethazine (Unverified Allergy, Unknown, DIFFICULTY BREATHING, 11/27/17) Uncoded Allergies: TAPE (Adverse Reaction, Unknown, RASH, 09/15/13) Patient Home Medication List Home Medication List Reviewed: Yes Albuterol Sulfate (Albuterol Sulfate) 2.5 Mg/3 Ml Vial.neb, 2 PUFF IH Q4H, (Reported) Entered as Reported by: MARILOU CHO on 07/12/19 0207 Albuterol Sulfate (Proair Hfa) 1 Puff Puff, 2 PUFF IH Q4H Prescribed by: KENZIE FLORES on 02/25/20 0956 Atorvastatin Calcium (Lipitor) 20 Mg Tablet, 20 MG PO HS, (Reported) Entered as Reported by: MARCO CEJA on 11/20/17 0922 Brexpiprazole (Rexulti) 4 Mg Tablet, 4 MG PO DAILY, (Reported) Entered as Reported by: LISSET MOSS on 08/24/18 0926 Bupropion HCl (Wellbutrin Sr) 150 Mg Tablet.er, 150 MG PO BID, (Reported) Entered as Reported by: MARCO CEJA on 11/20/17921 Oxcarbazepine (Trileptal) 300 Mg Tablet, 900 MG PO MORNING AND EVENING, (Reported) Entered as Reported by: MARCO CEJA on 11/20/17921 Oxcarbazepine (Trileptal) 300 Mg Tablet, 600 MG PO AFTERNOON, (Reported) Entered as Reported by: MARCO CEJA on 11/20/17921 Pantoprazole Sodium (Protonix) 40 Mg Tablet.dr, 40 MG PO DAILY, (Reported) Entered as Reported by: MARCO CEJA on 11/20/17921 Review of Systems Review of Systems Constitutional: No chills, No fever Respiratory: Cough, Shortness of Air Cardiovascular: Chest Pain Gastrointestinal: Denies Abdominal Pain; Diarrhea, Nausea, Vomiting Past Mvfejlg-Khiumh-Sjbygp Hx Immunizations Up To Date Tetanus Booster (TDap): Unknown Seasonal Allergies Seasonal Allergies: No Past Medical History Surgeries: Yes (EGD's, Colonoscopys, D&C, colon resection) Abdominal, Cystectomy, Hysterectomy Respiratory: Yes Asthma, Sleep Apnea, COPD Currently Using CPAP: No Currently Using BIPAP: No Cardiac: Yes High Cholesterol Neurological: No Reproductive Disorders: No Female Reproductive Disorders: Denies [employer]IST History: Hysterectomy Sexually Transmitted Disease: No HIV/AIDS: No Genitourinary: Yes Kidney Stones Gastrointestinal: Yes Gastroesophageal Reflux, Crohns Disease, Diverticulosis, Esophagitis Musculoskeletal: Yes Arthritis, Chronic Back Pain Endocrine: Yes (DM Type II, Morbid Obesity) Diabetes, Non-Insulin dep HEENT: No Loss of Vision: Bilateral Hearing Impairment: Denies Cancer: No Psychosocial: Yes Anxiety, Bipolar, Depression Integumentary: No Blood Disorders: No Adverse Reaction/Blood Tranf: No (HAS HAD BLOOD WITH NO REACTION) Physical Exam Vital Signs Vital Signs - First Documented 02/23/21 16:30 Temp 36.8 Pulse 16 Resp 16 B/P (MAP) 127/72 (90) Pulse Ox 97 O2 Delivery Room Air Capillary Refill : Height, Weight, BMI Height: 5'4.00" Weight: 262lbs. 0oz. 118.946384fe; 51.00 BMI Method:Stated General Appearance: No Apparent Distress, Obese HEENT: PERRL/EOMI Neck: Non Tender, Supple Respiratory: Lungs Clear, Normal Breath Sounds Cardiovascular: Normal Peripheral Pulses, Tachycardia Gastrointestinal: Non Tender, Soft; No Distended, No Guarding Extremity: Normal Capillary Refill, Normal Inspection, Normal Range of Motion Neurologic/Psychiatric: Alert, Oriented x3, No Motor/Sensory Deficits Skin: Warm/Dry, Tattoos/Piercings Progress/Results/Core Measures Results/Orders Lab Results Laboratory Tests Test 02/23/21 16:50 02/23/21 17:00 Range/Units White Blood Count 9.3 4.3-11.0 10^3/uL Red Blood Count 6.07 H 3.80-5.11 10^6/uL Hemoglobin 16.4 H 11.5-16.0 g/dL Hematocrit 49 35-52 % Mean Corpuscular Volume 81 80-99 fL Mean Corpuscular Hemoglobin 27 25-34 pg Mean Corpuscular Hemoglobin Concent 33 32-36 g/dL Red Cell Distribution Width 16.1 H 10.0-14.5 % Platelet Count 261 130-400 10^3/uL Mean Platelet Volume 9.7 9.0-12.2 fL Immature Granulocyte % (Auto) 1 % Neutrophils (%) (Auto) 53 42-75 % Lymphocytes (%) (Auto) 34 12-44 % Monocytes (%) (Auto) 8 0-12 % Eosinophils (%) (Auto) 4 0-10 % Basophils (%) (Auto) 1 0-10 % Neutrophils # (Auto) 4.9 1.8-7.8 X 10^3 Lymphocytes # (Auto) 3.1 1.0-4.0 X 10^3 Monocytes # (Auto) 0.7 0.0-1.0 X 10^3 Eosinophils # (Auto) 0.4 H 0.0-0.3 10^3/uL Basophils # (Auto) 0.1 0.0-0.1 10^3/uL Immature Granulocyte # (Auto) 0.1 0.0-0.1 10^3/uL Prothrombin Time 12.6 12.2-14.7 SEC INR Comment 0.9 0.8-1.4 Activated Partial Thromboplast Time 26 24-35 SEC D-Dimer < 0.27 0.00-0.49 UG/ML Sodium Level 135 135-145 MMOL/L Potassium Level 3.5 L 3.6-5.0 MMOL/L Chloride Level 102 98-107 MMOL/L Carbon Dioxide Level 23 21-32 MMOL/L Anion Gap 10 5-14 MMOL/L Blood Urea Nitrogen 9 7-18 MG/DL Creatinine 0.61 0.60-1.30 MG/DL Estimat Glomerular Filtration Rate 110 BUN/Creatinine Ratio 15 Glucose Level 110 H 70-105 MG/DL Calcium Level 8.7 8.5-10.1 MG/DL Corrected Calcium 8.6 8.5-10.1 MG/DL Magnesium Level 1.9 1.6-2.4 MG/DL Total Bilirubin 0.2 0.1-1.0 MG/DL Aspartate Amino Transf (AST/SGOT) 22 5-34 U/L Alanine Aminotransferase (ALT/SGPT) 38 0-55 U/L Alkaline Phosphatase 70 40-136 U/L Myoglobin 30.1 10.0-92.0 NG/ML Troponin I < 0.30 <0.30 NG/ML Total Protein 7.6 6.4-8.2 GM/DL Albumin 4.1 3.2-4.5 GM/DL My Orders Orders - KENNY,ROSSY L DO Cbc With Automated Diff (02/23/21 16:37) Magnesium (02/23/21 16:37) Chest 1 View Ap/Pa Only (02/23/21 16:37) Ekg Tracing (02/23/21 16:37) Comprehensive Metabolic Panel (02/23/21 16:37) Myoglobin Serum (02/23/21 16:37) Protime With Inr (02/23/21 16:37) Partial Thromboplastin Time (02/23/21 16:37) Monitor-Rhythm Ecg Trace Only (02/23/21 16:37) Aspirin Chewable Tablet (Baby Aspirin Ch (02/23/21 16:45) Ed Iv/Invasive Line Start (02/23/21 16:37) Fibrin Degradation Products (02/23/21 16:37) Troponin I Fs (02/23/21 16:37) Coronavirus Sars-Cov-2 So 2018 (02/23/21 16:37) Urine Bedside (02/23/21 16:39) Medications Given in ED Current Medications Medications Dose Ordered Sig/Christoph Route Start Time Stop Time Status Last Admin Dose Admin Aspirin 324 mg ONCE ONCE PO 02/23/21 16:45 02/23/21 16:46 DC 02/23/21 16:58 324 MG Vital Signs/I&O 02/23/21 02/23/21 16:30 18:30 Temp 36.8 Pulse 16 89 Resp 16 16 B/P (MAP) 127/72 (90) 135/72 Pulse Ox 97 97 O2 Delivery Room Air Room Air Progress Progress Note : Progress Note Patient with no acute findings on chest x-ray, EKG or troponin. Patient likely a reaction to her recent vaccination. Patient stable and discharged home. Initial ECG Impression Date: Feb 23, 2021 Initial ECG Impression Time: 16:32 Initial ECG Rate: 100 Initial ECG Rhythm: S.Tach Initial ECG Impression: Normal Comment mild tachycardia, no acute changes Diagnostic Imaging Diagonstic Imaging: Xray Plain Films/CT/US/NM/MRI: chest Comments CHEST 1 VIEW AP/PA ONLY PATIENT HISTORY: cp. TECHNIQUE: Single frontal view of the chest. COMPARISON: 12/31/2020. FINDINGS: The lung volumes are normal. No focal consolidation is seen. No large pleural effusion or pneumothorax is seen. The cardiomediastinal silhouette is normal in size and contour. No acute osseous abnormality is seen. IMPRESSION: No acute pulmonary abnormality seen. Reviewed: Reviewed by Me, Reviewed/Discussed Departure Impression Primary Impression: Status post administration of all doses of COVID-19 vaccine series Additional Impression: Medication reaction Qualified Codes: T50.905A - Adverse effect of unspecified drugs, medicaments and biological substances, initial encounter Disposition: 01 HOME, SELF-CARE Condition: Stable Departure-Patient Inst. Referrals: VALERIE GILES APRN (PCP) Primary Care Physician [facility] (Family) Primary Care Physician Patient Instructions: COVID-19 Vaccine (mRNA) [employer] FDA Fact Sheet, COVID-19 Vaccines Add. Discharge Instructions: Tylenol or ibuprofen as needed Follow-up with your primary care provider symptoms not improving in the next couple days Return to the ER if you develop significant worsening shortness of breath, worsening chest pain or any other concerns All discharge instructions reviewed with patient and/or family. Voiced understanding. ROSSY KENNY DO Feb 23, 2021 16:33
--- OUTSIDE RECORDS SUMMARY | 2021-02-23 16:33 | XMS REPORT | Clinical Summary ---
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 Name Role Phone PCP Unavailable Allergies Not on File Medications Not on file Active Problems Not on file Social History Date Tobacco Use Types Packs/Day Years Used Never Assessed Sex Assigned at Date Recorded Not on file Last Filed Vital Signs Not on file Plan of Treatment Health Maintenance Due Date Last Done Comments Td/Tdap# 1983 COVID-19 Vaccine (1) 1995 Cervical Cancer Screening 2004 via Pap Smear Influenza Vaccine (#1) 2021 Pneumococcal Vaccine: Aged Out No longer eligib le based on patient's age to Pediatrics (0 to 5 Years) complete this topic and At-Risk Patients (6 to 64 Years) Results Not on filefrom Last 3 Months
[2021-02-23] MEDS ORDERED: ASPIRIN 81 MG CHEW (CHILDREN'S ASA) PO ONE (16:45)
[2021-02-23 17:14] LABS: BASOPHILS # (AUTO) 0.1 10^3/uL (0.0-0.1); BASOPHILS % (AUTO) 1 % (0-10); EOSINOPHILS # (AUTO) 0.4 10^3/uL (0.0-0.3); EOSINOPHILS % (AUTO) 4 % (0-10); HEMATOCRIT 49 % (35-52); HEMOGLOBIN 16.4 g/dL (11.5-16.0); LYMPHOCYTES # (AUTO) 3.1 X 10^3 (1.0-4.0); LYMPHOCYTES % (AUTO) 34 % (12-44); MEAN CORPUSCULAR HEMOGLOBIN 27 pg (25-34); MEAN CORPUSCULAR HGB CONC 33 g/dL (32-36); MEAN CORPUSCULAR VOLUME 81 fL (80-99); MEAN PLATELET VOLUME 9.7 fL (9.0-12.2); MONOCYTES # (AUTO) 0.7 X 10^3 (0.0-1.0); MONOCYTES % (AUTO) 8 % (0-12); NEUTROPHILS # (AUTO) 4.9 X 10^3 (1.8-7.8); NEUTROPHILS % (AUTO) 53 % (42-75); PLATELET COUNT 261 10^3/uL (130-400); WHITE BLOOD COUNT 9.3 10^3/uL (4.3-11.0)
--- NOTE | 2021-02-23 17:22 | Diagnostic Imaging Report ---
PATIENT HISTORY: cp. TECHNIQUE: Single frontal view of the chest. COMPARISON: 12/31/2020. FINDINGS: The lung volumes are normal. No focal consolidation is seen. No large pleural effusion or pneumothorax is seen. The cardiomediastinal silhouette is normal in size and contour. No acute osseous abnormality is seen. IMPRESSION: No acute pulmonary abnormality seen. Dictated by: Dictated on workstation # [id number]
[2021-02-23 17:27] LABS: CALCIUM 8.7 MG/DL (8.5-10.1); CREATININE SERUM 0.61 MG/DL (0.60-1.30); MAGNESIUM 1.9 MG/DL (1.6-2.4); POTASSIUM 3.5 MMOL/L (3.6-5.0)
[2021-02-23 17:28] LABS: ALBUMIN 4.1 GM/DL (3.2-4.5); BILIRUBIN,TOTAL 0.2 MG/DL (0.1-1.0); TOTAL PROTEIN 7.6 GM/DL (6.4-8.2)
[2021-02-23 17:29] LABS: INR 0.9 (0.8-1.4); PROTHROMBIN TIME PATIENT 12.6 SEC (12.2-14.7)
[2021-02-23 18:30] VITALS: BP 135/72
== END 2021-02-23 18:32 | disposition home or self-care (01) ==
LOC: EDUNIT# 16:28 → ER FS 16:29
DX: T50.905A Adverse effect of unspecified drugs, medicaments and biological substances, initial encounter (principal); G47.30 Sleep apnea, unspecified; E66.01 Morbid (severe) obesity due to excess calories; J44.9 Chronic obstructive pulmonary disease, unspecified; E78.00 Pure hypercholesterolemia, unspecified; K21.9 Gastro-esophageal reflux disease without esophagitis; E11.9 Type 2 diabetes mellitus without complications; F41.9 Anxiety disorder, unspecified; F31.9 Bipolar disorder, unspecified; Z20.822 Contact with and (suspected) exposure to COVID-19; Z68.43 Body mass index [BMI] 50.0-59.9, adult; Z79.899 Other long term (current) drug therapy
CPT/HCPCS: 36415; 71045; 80053; 83735; 83874; 84484; 85025; 85379; 85610; 85730; 87635; 93005; 93041

== ENCOUNTER 2022-03-07 08:03 | Emergency (ER) | payer MEDICAID ==
[~2022-03-07] VITALS: Ht 162.5 cm; Wt 130.0 kg
[~2022-03-07 08:03] MED LIST changes: +CLIN-144 PO; -CLIN300C12 PO; +CYCL10TA25 PO; -CYCL10TA9 PO; +DICY20TA PO; -DICY20TA10 PO; -FLUC200T5 PO; +FLUC200T9 PO
[2022-03-07] MEDS ORDERED: SUCRALFATE 1 GM (CARAFATE) TAB PO ONE (08:30)
[2022-03-07] MEDS ORDERED: NS IV 1000 ML 1,000 ML IV SCH (08:30)
[2022-03-07] MEDS ORDERED: ANTACID SUSP 30 ML UDC (MYLANTA) PO ONE (08:30)
[2022-03-07] MEDS ORDERED: LIDOCAINE 2% VISCOUS 15 ML UDC PO ONE (08:30)
--- NOTE | 2022-03-07 08:37 | ED Abdominal Pain ---
General Chief Complaint: Abdominal/GI Problems Stated Complaint: ABD PAIN; DIARRHEA; VOMITING BLOOD Nursing Triage Note: Patient presents to the ED with c/o epigastric pain and blood in emesis. States that she woke around 3am and had 1 episode of vomiting. She reports there was red streaks of blood in her emesis. Source of Information: Patient Exam Limitations: No Limitations History of Present Illness Date Seen by Provider: Mar 07, 2022 Time Seen by Provider: 08:33 Initial Comments 37-year-old female with history of Crohn's disease presents to the emergency de partment today for abdominal pain and blood in her vomit. Pain is located in her epigastric region describes a burning sensation without radiation. It is diffuse in her upper abdomen without any obvious aggravating or alleviating factors. It started abruptly at 3 AM waking her from sleep. She then had a single episode of blood-streaked emesis. She initially thought it was a flare of her Crohn's disease however it is in a different place than her typical Crohn's pain. She states that she "partied really hard" over the weekend. She drank excessively with some friends that she had not seen in a long time however she was fine on Sunday and Sunday and did not drink during those days. She denies any fevers or chills. She has had 3 bouts of loose nonbloody stools this morning. No sick contacts. She has had her gallbladder removed and a total hysterectomy. Allergies and Home Medications Allergies Coded Allergies: buspirone (Verified Allergy, Intermediate, SEVERE ANXIETY, 11/27/17) aripiprazole (Verified Allergy, Unknown, Heart racing, 08/24/18) bismuth subsalicylate (Unverified Allergy, Unknown, NAUSEA, 11/27/17) latex (Unverified Allergy, Unknown, RASH, 11/27/17) meperidine (Unverified Allergy, Unknown, RASH, 11/27/17) promethazine (Unverified Allergy, Unknown, DIFFICULTY BREATHING, 11/27/17) Uncoded Allergies: TAPE (Adverse Reaction, Unknown, RASH, 09/15/13) Patient Home Medication List Home Medication List Reviewed: Yes Albuterol Sulfate (Albuterol Sulfate) 2.5 Mg/3 Ml Vial.neb, 2 PUFF IH Q4H, (Reported) Entered as Reported by: MARILOU CHO on 07/12/19 0207 Albuterol Sulfate (Proair Hfa) 1 Puff Puff, 2 PUFF IH Q4H Prescribed by: KENZIE FLORES on 02/25/20 0956 Atorvastatin Calcium (Lipitor) 20 Mg Tablet, 20 MG PO HS, (Reported) Entered as Reported by: MARCO CEJA on 11/20/17921 Brexpiprazole (Rexulti) 4 Mg Tablet, 4 MG PO DAILY, (Reported) Entered as Reported by: LISSET MOSS on 08/24/18 09 Bupropion HCl (Wellbutrin Sr) 150 Mg Tablet.er, 150 MG PO BID, (Reported) Entered as Reported by: MARCO CEJA on 11/20/17921 Oxcarbazepine (Trileptal) 300 Mg Tablet, 900 MG PO MORNING AND EVENING, (Reported) Entered as Reported by: MARCO CEJA on 11/20/17921 Oxcarbazepine (Trileptal) 300 Mg Tablet, 600 MG PO AFTERNOON, (Reported) Entered as Reported by: MARCO CEJA on 11/20/17921 Pantoprazole Sodium (Protonix) 40 Mg Tablet.dr, 40 MG PO DAILY, (Reported) Entered as Reported by: MARCO CEJA on 11/20/17921 Review of Systems Review of Systems Constitutional: no symptoms reported EENTM: No Symptoms Reported Respiratory: No Symptoms Reported Cardiovascular: No Symptoms Reported Gastrointestinal: Abdominal Pain, Nausea, Vomiting Genitourinary: No Symptoms Reported Musculoskeletal: no symptoms reported Skin: no symptoms reported Psychiatric/Neurological: No Symptoms Reported Endocrine: No Symptoms Reported Hematologic/Lymphatic: No Symptoms Reported Past Vvitcig-Vguivr-Uuzprg Hx Patient Social History Tobacco Use?: Yes Tobacco type used: Cigarettes Smoking Status: Current Everyday Smoker Substance use?: Yes Substance type: Other Additional substance use comme: CBD Gummies Substance frequency: Once in a while Alcohol Use?: Yes Alcohol Frequency: Rarely Pt feels they are or have been: No Immunizations Up To Date Tetanus Booster (TDap): Unknown First/Initial COVID19 Vaccinat: 01/2021 Second COVID19 Vaccination [place]: 02/22/2021 Third COVID19 Vaccination Date: 01/2021 Seasonal Allergies Seasonal Allergies: No Past Medical History Surgery/Hospitalization HX: DM; Hysterectomy; Cholecysectomy; Hiatal hernia with repair; Colitis, Chron's disease; GERD; HTN Surgeries: Yes (EGD's, Colonoscopys, D&C, colon resection) Abdominal, Cystectomy, Hysterectomy Respiratory: Yes Asthma, Sleep Apnea, COPD Currently Using CPAP: No Currently Using BIPAP: No Cardiac: Yes High Cholesterol Neurological: No Reproductive Disorders: No Female Reproductive Disorders: Denies [employer] AMBASS[employer]OR History: Hysterectomy Sexually Transmitted Disease: No HIV/AIDS: No Genitourinary: Yes Kidney Stones Gastrointestinal: Yes Gastroesophageal Reflux, Crohns Disease, Diverticulosis, Esophagitis Musculoskeletal: Yes Arthritis, Chronic Back Pain Endocrine: Yes (DM Type II, Morbid Obesity) Diabetes, Non-Insulin dep HEENT: No Loss of Vision: Bilateral Hearing Impairment: Denies Cancer: No Psychosocial: Yes Anxiety, Bipolar, Depression Integumentary: No Blood Disorders: No Adverse Reaction/Blood Tranf: No (HAS HAD BLOOD WITH NO REACTION) Family Medical History Reviewed Nursing Family Hx No Pertinent Family Hx Physical Exam Vital Signs Vital Signs - First Documented 03/07/22 08:10 Temp 36.1 Pulse 76 Resp 16 B/P (MAP) 110/96 (101) Pulse Ox 99 O2 Delivery Room Air Capillary Refill : Less Than 3 Seconds Height/Weight/BMI Height: 5'4.00" Weight: 262lbs. 0oz. 118.978472qd; 49.00 BMI Method:Stated General Appearance: WD/WN, no apparent distress HEENT: normal ENT inspection, pharynx normal Neck: non-tender, full range of motion, supple, normal inspection Respiratory: chest non-tender, lungs clear, normal breath sounds, no respi ratory distress, no accessory muscle use Cardiovascular: regular rate, rhythm, no edema, no gallop, no JVD, no murmur Gastrointestinal: normal bowel sounds, soft, no organomegaly, no pulsatile mass, tenderness (Epigastric. Voluntary guarding. No rebound tenderness. No mass or organomegaly. No skin changes.) Extremities: normal range of motion, non-tender, normal inspection, no pedal edema, no calf tenderness Back: normal inspection, no CVA tenderness, no vertebral tenderness Skin: normal color, warm/dry Lymphatic: no adenopathy Progress/Results/Core Measures Results/Orders Lab Results Laboratory Tests Test 03/07/22 08:40 Range/Units White Blood Count 13.3 H 4.3-11.0 10^3/uL Red Blood Count 5.85 H 3.80-5.11 10^6/uL Hemoglobin 15.6 11.5-16.0 g/dL Hematocrit 47 35-52 % Mean Corpuscular Volume 81 80-99 fL Mean Corpuscular Hemoglobin 27 25-34 pg Mean Corpuscular Hemoglobin Concent 33 32-36 g/dL Red Cell Distribution Width 15.0 H 10.0-14.5 % Platelet Count 256 130-400 10^3/uL Mean Platelet Volume 10.4 9.0-12.2 fL Immature Granulocyte % (Auto) 1 % Neutrophils (%) (Auto) 73 42-75 % Lymphocytes (%) (Auto) 20 12-44 % Monocytes (%) (Auto) 5 0-12 % Eosinophils (%) (Auto) 1 0-10 % Basophils (%) (Auto) 0 0-10 % Neutrophils # (Auto) 9.6 H 1.8-7.8 10^3/uL Lymphocytes # (Auto) 2.7 1.0-4.0 10^3/uL Monocytes # (Auto) 0.7 0.0-1.0 10^3/uL Eosinophils # (Auto) 0.2 0.0-0.3 10^3/uL Basophils # (Auto) 0.0 0.0-0.1 10^3/uL Immature Granulocyte # (Auto) 0.1 0.0-0.1 10^3/uL Sodium Level 140 135-145 MMOL/L Potassium Level 4.2 3.6-5.0 MMOL/L Chloride Level 105 98-107 MMOL/L Carbon Dioxide Level 24 21-32 MMOL/L Anion Gap 11 5-14 MMOL/L Blood Urea Nitrogen 8 7-18 MG/DL Creatinine 0.60 0.60-1.30 MG/DL Estimat Glomerular Filtration Rate 117 BUN/Creatinine Ratio 13 Glucose Level 122 H 70-105 MG/DL Calcium Level 8.8 8.5-10.1 MG/DL Corrected Calcium 9.0 8.5-10.1 MG/DL Total Bilirubin 0.3 0.1-1.0 MG/DL Aspartate Amino Transf (AST/SGOT) 20 5-34 U/L Alanine Aminotransferase (ALT/SGPT) 28 0-55 U/L Alkaline Phosphatase 66 40-136 U/L Total Protein 7.0 6.4-8.2 GM/DL Albumin 3.8 3.2-4.5 GM/DL Lipase 27 8-78 U/L My Orders Orders - AARONMORA Levy DO Cbc With Automated Diff (03/07/22 08:23) Comprehensive Metabolic Panel (03/07/22 08:23) Lipase (03/07/22 08:23) Ns Iv 1000 Ml (Sodium Chloride 0.9%) (03/07/22 08:30) Sucralfate Tablet (Carafate Tablet) (03/07/22 08:30) Lidocaine 2% Viscous 15 Ml (Xylocaine Vi (03/07/22 08:30) Antacid Suspension (Mylanta Suspension (03/07/22 08:30) Medications Given in ED Current Medications Medications Dose Ordered Sig/Christoph Route Start Time Stop Time Status Last Admin Dose Admin Al Hydrox/Mg Hydrox/Simethicone 30 ml ONCE ONCE PO 03/07/22 08:30 03/07/22 08:31 DC 03/07/22 08:32 30 ML Lidocaine HCl 5 ml ONCE ONCE PO 03/07/22 08:30 03/07/22 08:31 DC 03/07/22 08:32 5 ML Sucralfate 1 gm ONCE ONCE PO 03/07/22 08:30 03/07/22 08:31 DC 03/07/22 08:32 1 GM Vital Signs/I&O 03/07/22 08:10 Temp 36.1 Pulse 76 Resp 16 B/P (MAP) 110/96 (101) Pulse Ox 99 O2 Delivery Room Air Blood Pressure Mean: 101 Departure Communication (Admissions) Patient is hemodynamically stable with a nonsurgical abdominal exam. Pain is consistent with likely gastritis especially in light of her recent increased alcohol intake and recurrent hiatal hernia. Labs and exam are reassuring. Patient will be discharged with supportive care and close primary care follow- up. Impression Primary Impression: Epigastric abdominal pain Additional Impression: Nausea and vomiting Qualified Codes: R11.2 - Nausea with vomiting, unspecified Disposition: 01 HOME, SELF-CARE Condition: Stable Departure-Patient Inst. Referrals: VALERIE GILES APRN (PCP) Primary Care Physician [facility] (Family) Primary Care Physician Patient Instructions: Gastritis (DC) Add. Discharge Instructions: Please use Carafate as needed for burning in your abdomen. Increase your fluids at home. Rest as needed. Use the nausea medicine provided as needed. Return to the emergency department for any severe concerns. Follow-up with your primary physician for any nonemergent needs. All discharge instructions reviewed with patient and/or family. Voiced understanding. Scripts Ondansetron (Ondansetron Odt) 8 Mg Tab.rapdis 8 MG PO Q6H for Nausea for 7 Days, #28 TAB Prov: MORA WALKER DO 03/07/22 Sucralfate (Carafate) 1 Gram Tablet 1 GM PO ACHS PRN for PAIN-MODERATE (5-7) for 7 Days, #28 TAB Prov: MORA WALKER DO 03/07/22 MORA WALKER DO Mar 07, 2022 08:37
[2022-03-07 08:54] LABS: BASOPHILS % (AUTO) 0 % (0-10); EOSINOPHILS # (AUTO) 0.2 10^3/uL (0.0-0.3); EOSINOPHILS % (AUTO) 1 % (0-10); HEMATOCRIT 47 % (35-52); HEMOGLOBIN 15.6 g/dL (11.5-16.0); LYMPHOCYTES # (AUTO) 2.7 10^3/uL (1.0-4.0); LYMPHOCYTES % (AUTO) 20 % (12-44); MEAN CORPUSCULAR HEMOGLOBIN 27 pg (25-34); MEAN CORPUSCULAR HGB CONC 33 g/dL (32-36); MEAN CORPUSCULAR VOLUME 81 fL (80-99); MEAN PLATELET VOLUME 10.4 fL (9.0-12.2); MONOCYTES # (AUTO) 0.7 10^3/uL (0.0-1.0); MONOCYTES % (AUTO) 5 % (0-12); NEUTROPHILS # (AUTO) 9.6 10^3/uL (1.8-7.8); NEUTROPHILS % (AUTO) 73 % (42-75); PLATELET COUNT 256 10^3/uL (130-400); WHITE BLOOD COUNT 13.3 10^3/uL (4.3-11.0)
[2022-03-07 09:19] LABS: ALBUMIN 3.8 GM/DL (3.2-4.5); BILIRUBIN,TOTAL 0.3 MG/DL (0.1-1.0); CALCIUM 8.8 MG/DL (8.5-10.1); CREATININE SERUM 0.6 MG/DL (0.60-1.30); POTASSIUM 4.2 MMOL/L (3.6-5.0)
[2022-03-07] MEDS ORDERED: ONDA8TAB13 PO (09:25)
[2022-03-07] MEDS ORDERED: SUCR1TAB36 PO (09:25)
[2022-03-07 09:28] VITALS: BP 105/88
== END 2022-03-07 09:28 | disposition home or self-care (01) ==
LOC: EDUNIT# 08:03 → ER FS 08:06
DX: R10.13 Epigastric pain (principal); R11.2 Nausea with vomiting, unspecified; E66.01 Morbid (severe) obesity due to excess calories; F17.210 Nicotine dependence, cigarettes, uncomplicated; Z90.49 Acquired absence of other specified parts of digestive tract; Z68.42 Body mass index [BMI] 45.0-49.9, adult; Z91.040 Latex allergy status
CPT/HCPCS: 36415; 80053; 83690; 85025

== ENCOUNTER 2022-04-16 10:47 | Emergency (ER) | payer MEDICAID ==
[~2022-04-16] VITALS: Ht 154 cm; Wt 120.0 kg
[~2022-04-16 10:47] MED LIST changes: +ALBU8.5H6 IH; +ONDA8TAB13 PO; -RT-ALBUINH IH; +SUCR1TAB36 PO
--- NOTE | 2022-04-16 10:51 | ED GI ---
General Stated Complaint: ABD PAIN History of Present Illness Date Seen by Provider: Apr 16, 2022 Time Seen by Provider: 10:51 Initial Comments 36-year-old female with PMH of Crohn's disease/DM2, insulin resistant/asthma/obesity, is brought in by EMS with complaints of right lower quadrant pain, diarrhea, nausea and vomiting, with chills, which began today morning when she woke up. Patient has had Crohn's flareup once in a while. Patient states that this pain is much worse than the flareups have ever been in the past. Patient has not had anything to eat or drink today. Patient also has a past surgical history of hysterectomy, cholecystectomy, colectomy. Denies chest pain, palpitations, dysuria, hematuria, dizziness. Allergies and Home Medications Allergies Coded Allergies: buspirone (Verified Allergy, Intermediate, SEVERE ANXIETY, 11/27/17) aripiprazole (Verified Allergy, Unknown, Heart racing, 08/24/18) bismuth subsalicylate (Unverified Allergy, Unknown, NAUSEA, 11/27/17) latex (Unverified Allergy, Unknown, RASH, 11/27/17) meperidine (Unverified Allergy, Unknown, RASH, 11/27/17) promethazine (Unverified Allergy, Unknown, DIFFICULTY BREATHING, 11/27/17) Uncoded Allergies: TAPE (Adverse Reaction, Unknown, RASH, 09/15/13) Patient Home Medication List Home Medication List Reviewed: Yes Albuterol Sulfate (Albuterol Sulfate) 2.5 Mg/3 Ml Vial.neb, 2 PUFF IH Q4H, (R eported) Entered as Reported by: MARILOU CHO on 07/12/19 0207 Albuterol Sulfate (Ventolin Hfa) 1 Puff Puff, 2 PUFF IH Q4H Prescribed by: KENZIE FLORES on 02/25/20 0956 Atorvastatin Calcium (Lipitor) 20 Mg Tablet, 20 MG PO HS, (Reported) Entered as Reported by: MARCO CEJA on 11/20/17 0922 Brexpiprazole (Rexulti) 4 Mg Tablet, 4 MG PO DAILY, (Reported) Entered as Reported by: LISSET MOSS on 08/24/18 0926 Bupropion HCl (Wellbutrin Sr) 150 Mg Tablet.er, 150 MG PO BID, (Reported) Entered as Reported by: MARCO CEJA on 11/20/17921 Ondansetron (Ondansetron Odt) 8 Mg Tab.rapdis, 8 MG PO Q6H Prescribed by: MORA WALKER MD on 03/07/22924 Oxcarbazepine (Trileptal) 300 Mg Tablet, 900 MG PO MORNING AND EVENING, (Reported) Entered as Reported by: MARCO CEJA on 11/20/17921 Oxcarbazepine (Trileptal) 300 Mg Tablet, 600 MG PO AFTERNOON, (Reported) Entered as Reported by: MARCO CEJA on 11/20/17921 Pantoprazole Sodium (Protonix) 40 Mg Tablet.dr, 40 MG PO DAILY, (Reported) Entered as Reported by: MARCO CEJA on 11/20/17921 Sucralfate (Carafate) 1 Gram Tablet, 1 GM PO ACHS PRN for PAIN-MODERATE (5-7) Prescribed by: MORA WALKER MD on 03/07/22924 Review of Systems Review of Systems Constitutional: chills EENTM: No Symptoms Reported Respiratory: No Symptoms Reported Cardiovascular: No Symptoms Reported Gastrointestinal: Abdominal Pain, Diarrhea, Nausea, Vomiting Genitourinary: No Symptoms Reported Musculoskeletal: no symptoms reported Skin: no symptoms reported Psychiatric/Neurological: No Symptoms Reported Endocrine: No Symptoms Reported Hematologic/Lymphatic: No Symptoms Reported Past Xmoqomn-Udjsou-Bkezao Hx Immunizations Up To Date Tetanus Booster (TDap): Unknown First/Initial COVID19 Vaccinat: 01/2021 Second COVID19 Vaccination [place]: 02/22/2021 Third COVID19 Vaccination Date: 01/2021 Seasonal Allergies Seasonal Allergies: No Past Medical History Surgery/Hospitalization HX: DM; Hysterectomy; Cholecysectomy; Hiatal hernia with repair; Colitis, Chron's disease; GERD; HTN Surgeries: Yes (EGD's, Colonoscopys, D&C, colon resection) Abdominal, Cystectomy, Hysterectomy Respiratory: Yes Asthma, Sleep Apnea, COPD Currently Using CPAP: No Currently Using BIPAP: No Cardiac: Yes High Cholesterol Neurological: No Reproductive Disorders: No 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 Sexually Transmitted Disease: No HIV/AIDS: No Genitourinary: Yes Kidney Stones Gastrointestinal: Yes Gastroesophageal Reflux, Crohns Disease, Diverticulosis, Esophagitis Musculoskeletal: Yes Arthritis, Chronic Back Pain Endocrine: Yes (DM Type II, Morbid Obesity) Diabetes, Non-Insulin dep HEENT: No Loss of Vision: Bilateral Hearing Impairment: Denies Cancer: No Psychosocial: Yes Anxiety, Bipolar, Depression Integumentary: No Blood Disorders: No Adverse Reaction/Blood Tranf: No (HAS HAD BLOOD WITH NO REACTION) Family Medical History No Pertinent Family Hx Physical Exam Vital Signs Vital Signs - First Documented 04/16/22 10:58 Temp 36.1 Pulse 72 Resp 16 B/P (MAP) 136/60 (85) Pulse Ox 96 Capillary Refill : Height/Weight/BMI Height: 5'4.00" Weight: 262lbs. 0oz. 118.752668jv; 49.00 BMI Method:Stated General Appearance: WD/WN, moderate distress, obese HEENT: PERRL/EOMI, normal ENT inspection Neck: non-tender, full range of motion, supple, normal inspection Respiratory: chest non-tender, lungs clear, normal breath sounds, no respiratory distress Cardiovascular: normal peripheral pulses, regular rate, rhythm Gastrointestinal: normal bowel sounds, soft, tenderness (In right LQ and periumbilical area) Extremities: normal range of motion Back: normal inspection, no CVA tenderness Pelvic: normal external exam Neurologic/Psychiatric: alert, normal mood/affect, oriented x 3 Skin: normal color Focused Exam Lactate Level 04/16/22 11:18: Lactic Acid Level 1.09 Lactic Acid Level Laboratory Tests Test 04/16/22 11:18 Lactic Acid Level 1.09 MMOL/L (0.50-2.00) Progress/Results/Core Measures Results/Orders Lab Results Laboratory Tests Test 04/16/22 10:57 04/16/22 11:18 04/16/22 12:10 Range/Units White Blood Count 7.2 4.3-11.0 10^3/uL Red Blood Count 6.21 H 3.80-5.11 10^6/uL Hemoglobin 16.4 H 11.5-16.0 g/dL Hematocrit 50 35-52 % Mean Corpuscular Volume 80 80-99 fL Mean Corpuscular Hemoglobin 26 25-34 pg Mean Corpuscular Hemoglobin Concent 33 32-36 g/dL Red Cell Distribution Width 15.4 H 10.0-14.5 % Platelet Count 251 130-400 10^3/uL Mean Platelet Volume 9.6 9.0-12.2 fL Immature Granulocyte % (Auto) 1 % Neutrophils (%) (Auto) 67 42-75 % Lymphocytes (%) (Auto) 22 12-44 % Monocytes (%) (Auto) 8 0-12 % Eosinophils (%) (Auto) 2 0-10 % Basophils (%) (Auto) 1 0-10 % Neutrophils # (Auto) 4.9 1.8-7.8 10^3/uL Lymphocytes # (Auto) 1.6 1.0-4.0 10^3/uL Monocytes # (Auto) 0.6 0.0-1.0 10^3/uL Eosinophils # (Auto) 0.2 0.0-0.3 10^3/uL Basophils # (Auto) 0.0 0.0-0.1 10^3/uL Immature Granulocyte # (Auto) 0.1 0.0-0.1 10^3/uL Sodium Level 136 135-145 MMOL/L Potassium Level 4.3 3.6-5.0 MMOL/L Chloride Level 103 98-107 MMOL/L Carbon Dioxide Level 21 21-32 MMOL/L Anion Gap 12 5-14 MMOL/L Blood Urea Nitrogen 9 7-18 MG/DL Creatinine 0.65 0.60-1.30 MG/DL Estimat Glomerular Filtration Rate 115 BUN/Creatinine Ratio 14 Glucose Level 146 H 70-105 MG/DL Calcium Level 9.2 8.5-10.1 MG/DL Corrected Calcium 9.4 8.5-10.1 MG/DL Magnesium Level 1.9 1.6-2.4 MG/DL Total Bilirubin 0.3 0.1-1.0 MG/DL Aspartate Amino Transf (AST/SGOT) 26 5-34 U/L Alanine Aminotransferase (ALT/SGPT) 31 0-55 U/L Alkaline Phosphatase 68 40-136 U/L Troponin I < 0.30 <0.30 NG/ML Total Protein 7.3 6.4-8.2 GM/DL Albumin 3.7 3.2-4.5 GM/DL Lipase 27 8-78 U/L Lactic Acid Level 1.09 0.50-2.00 MMOL/L Urine Color DARK YELLOW Urine Clarity CLEAR Urine pH 8.5 5-9 Urine Specific [place] 1.015 L 1.016-1.022 Urine Protein TRACE H NEGATIVE Urine Glucose (UA) NEGATIVE NEGATIVE Urine Ketones NEGATIVE NEGATIVE Urine Nitrite NEGATIVE NEGATIVE Urine Bilirubin NEGATIVE NEGATIVE Urine Urobilinogen 1.0 < = 1.0 MG/DL Urine Leukocyte Esterase NEGATIVE NEGATIVE Urine RBC (Auto) NEGATIVE NEGATIVE Urine RBC 0-2 /HPF Urine WBC 10-25 H /HPF Urine Squamous Epithelial Cells 10-25 H /HPF Urine Crystals NONE /LPF Urine Bacteria MODERATE H /HPF Urine Casts NONE /LPF Urine Mucus LARGE H /LPF Urine Culture Indicated YES Urine Opiates Screen NEGATIVE NEGATIVE Urine Oxycodone Screen NEGATIVE NEGATIVE Urine Methadone Screen NEGATIVE NEGATIVE Urine Propoxyphene Screen NEGATIVE NEGATIVE Urine Barbiturates Screen NEGATIVE NEGATIVE Ur Tricyclic Antidepressants Screen NEGATIVE NEGATIVE Urine Phencyclidine Screen NEGATIVE NEGATIVE Urine Amphetamines Screen NEGATIVE NEGATIVE Urine Methamphetamines Screen NEGATIVE NEGATIVE Urine Benzodiazepines Screen NEGATIVE NEGATIVE Urine Cocaine Screen NEGATIVE NEGATIVE Urine Cannabinoids Screen POSITIVE H NEGATIVE My Orders Orders - SANGITA GONZALEZ MD Cbc With Automated Diff (04/16/22 10:57) Comprehensive Metabolic Panel (04/16/22 10:57) Drug Screen Stat (Urine) (04/16/22 10:57) Lactic Acid Analyzer (04/16/22 10:57) Lipase (04/16/22 10:57) Magnesium (04/16/22 10:57) Ua Culture If Indicated (04/16/22 10:57) Troponin I Fs (04/16/22 10:57) Ketorolac Injection (Toradol Injection) (04/16/22 11:15) Iohexol Injection (Omnipaque 350 Mg/Ml 1 (04/16/22 11:15) Received Contrast (Hold Metformin- Contr (04/16/22 11:15) Ns (Ivpb) (Sodium Chloride 0.9% Ivpb Bag (04/16/22 11:15) Ct Abdomen/Pelvis Wo (04/16/22 10:58) Urine Culture (04/16/22 12:10) Medications Given in ED Current Medications Medications Dose Ordered Sig/Christoph Route Start Time Stop Time Status Last Admin Dose Admin Iohexol 100 ml ONCE ONCE IV 04/16/22 11:15 04/16/22 11:16 DC 04/16/22 11:24 10 ML Ketorolac Tromethamine 15 mg ONCE ONCE IVP 04/16/22 11:15 04/16/22 11:16 DC 04/16/22 11:10 15 MG Sodium Chloride 100 ml ONCE ONCE IV 04/16/22 11:15 04/16/22 11:16 DC 04/16/22 11:24 100 ML Vital Signs/I&O 04/16/22 10:58 Temp 36.1 Pulse 72 Resp 16 B/P (MAP) 136/60 (85) Pulse Ox 96 Progress Progress Note : Progress Note 1. ABDOMINAL PAIN: DIVERTICULOSIS - CT ABD & PELVIS: No acute changes No appendicitis. Dominant right ovarian follicle measuring 2.8 cm. Trace free fluid in the pelvis. Colonic divert iculosis without diverticulitis. Hepatic steatosis. - CBC/ CMP: unremarkable - Lipase:normal - UA/ UDS unremarkable except marijuana positive - Toradol 15mg iv/ NS IVF bolus -Zofran IV was given in the ambulance -Advise high-fiber diet, increase water intake to 8 to 12 glasses of water a day, initial liquid diet for the first 3 days, and then advance diet to soft and bland diet -Advised not to use marijuana -Advised to follow-up with general surgeon, Dr. Singh for colonoscopy once symptoms improve, and with PCP within the next 7 days. -Advised Tylenol as needed for pain and Gas-X as needed. Patient has Zofran at home for nausea and vomiting. -The patient was seen in the ED, and treated appropriately to presentation at a specific point in time. Patient is informed that there is a possibility that disease and illness can evolve and change in acuity rapidly or slowly after p atient is discharged from the ER. Precautionary advice given to the patient for immediate return to ER if symptoms worsen or do not resolve, and to seek emergency care sooner rather than later. Pt also advised on the importance of PCP follow up and compliance with management and follow up plan with PCP and/or specialist, as this is part of the management plan. Pt verbally expressed understanding. Diagnostic Imaging Diagonstic Imaging: CT Plain Films/CT/US/NM/MRI: abdomen Comments [facility] [place], [place] NAME: MARIA C ROJO Linda [facility] REC#: [id number] PT STATUS: REG ER : 1985 PHYSICIAN: SANGITA GONZALEZ MD ADMIT DATE: 04/16/22/ER FS Draft Date of Exam:04/16/22 CT ABDOMEN/PELVIS WO PROCEDURE: CT abdomen and pelvis without contrast. TECHNIQUE: Multiple contiguous axial images were obtained through the abdomen and pelvis without the use of intravenous contrast. Auto Exposure Controls were utilized during the CT exam to meet ALARA standards for radiation dose reduction. INDICATION: Right lower quadrant abdominal pain. COMPARISON: 08/19/2020 FINDINGS: The lung bases are clear. The heart is normal in size. The liver demonstrates no focal lesions. There is hepatic steatosis. The liver is large measuring 21 cm in length. The spleen appears normal. The pancreas is normal. The adrenal glands appear normal. The kidneys are excreting contrast and there is contrast in the urinary bladder. No hydronephrosis is seen. The bowel loops are nondistended without obstruction. The appendix is normal. There is diverticulosis of the descending and sigmoid colon without diverticulitis. There is a dominant follicle in the right ovary which measures about 2.8 cm in size. There is trace free fluid in the pelvis. Anastomotic sutures are noted in the bowel. No acute osseous abnormality is seen. IMPRESSION: 1. No appendicitis. 2. Dominant right ovarian follicle measuring 2.8 cm. Trace free fluid in the pelvis. 3. Colonic diverticulosis without diverticulitis. 4. Hepatic steatosis. Dictated on workstation # [id number] Dict: 04/16/22 1217 Trans: 04/16/22 1227 [id number] Interpreted by: LYNN MARLEY MD Electronically signed by: Departure Impression Primary Impression: Diverticulosis of colon without diverticulitis Additional Impression: Marijuana use, continuous Disposition: 01 HOME, SELF-CARE Condition: Improved Departure-Patient Inst. Referrals: VALERIE GILES APRN (PCP) Primary Care Physician [facility] (Family) Primary Care Physician MACARIO SINGH DO Patient Instructions: Diverticulosis (DC), Crohn's Disease (DC) Add. Discharge Instructions: -Advise high-fiber diet, increase water intake to 8 to 12 glasses of water a d ay, initial liquid diet for the first 3 days, and then advance diet to soft and bland diet -Advised to follow-up with general surgeon, Dr. Singh for colonoscopy once symptoms improve, and with PCP within the next 7 days. -Advised Tylenol as needed for pain and Gas-X as needed. Patient has Zofran at home for nausea and vomiting, take as needed every 8 hours. -Patient is informed that there is a possibility that disease and illness can evolve and change in acuity rapidly or slowly after patient is discharged from the ER. Precautionary advice given to the patient for immediate return to ER if symptoms worsen or do not resolve, and to seek emergency care sooner rather than later. Pt also advised on the importance of PCP follow up and compliance with management and follow up plan with PCP and/or specialist, as this is part of the management plan. SANGITA GONZALEZ MD Apr 16, 2022 10:51
[2022-04-16 11:02] LABS: BASOPHILS % (AUTO) 1 % (0-10); EOSINOPHILS # (AUTO) 0.2 10^3/uL (0.0-0.3); EOSINOPHILS % (AUTO) 2 % (0-10); HEMATOCRIT 50 % (35-52); HEMOGLOBIN 16.4 g/dL (11.5-16.0); LYMPHOCYTES # (AUTO) 1.6 10^3/uL (1.0-4.0); LYMPHOCYTES % (AUTO) 22 % (12-44); MEAN CORPUSCULAR HEMOGLOBIN 26 pg (25-34); MEAN CORPUSCULAR HGB CONC 33 g/dL (32-36); MEAN CORPUSCULAR VOLUME 80 fL (80-99); MEAN PLATELET VOLUME 9.6 fL (9.0-12.2); MONOCYTES # (AUTO) 0.6 10^3/uL (0.0-1.0); MONOCYTES % (AUTO) 8 % (0-12); NEUTROPHILS # (AUTO) 4.9 10^3/uL (1.8-7.8); NEUTROPHILS % (AUTO) 67 % (42-75); PLATELET COUNT 251 10^3/uL (130-400); WHITE BLOOD COUNT 7.2 10^3/uL (4.3-11.0)
[2022-04-16 11:15] LABS: ALANINE AMINOTRANSFERASE 31 U/L (0-55); ALBUMIN 3.7 GM/DL (3.2-4.5); ALKALINE PHOSPHATASE 68 U/L (40-136); BILIRUBIN,TOTAL 0.3 MG/DL (0.1-1.0); BUN/CREATININE RATIO 14; CALCIUM 9.2 MG/DL (8.5-10.1); CARBON DIOXIDE 21 MMOL/L (21-32); CHLORIDE 103 MMOL/L (98-107); CREATININE SERUM 0.65 MG/DL (0.60-1.30); GFR ESTIMATED 115; GLUCOSE 146 MG/DL (70-105); LIPASE 27 U/L (8-78); MAGNESIUM 1.9 MG/DL (1.6-2.4); POTASSIUM 4.3 MMOL/L (3.6-5.0); SODIUM 136 MMOL/L (135-145); TOTAL PROTEIN 7.3 GM/DL (6.4-8.2)
[2022-04-16] MEDS ORDERED: IOHEXOL 350 MG/ML 100 ML (OMNIPAQUE 350) VIAL IV ONE (11:15)
[2022-04-16] MEDS ORDERED: NS 100 ML (IVPB) BAG IV ONE (11:15)
[2022-04-16] MEDS ORDERED: KETOROLAC 30 MG/ML VIAL IVP ONE (11:15)
[2022-04-16] MEDS ORDERED: HOLD METFORMIN - RECEIVED CONTRAST 20 ML VIAL IV SCH (11:15)
[2022-04-16 12:13] LABS: BILIRUBIN,URINE NEGATIVE (NEGATIVE); CLARITY,URINE CLEAR; GLUCOSE, URINE (UA) NEGATIVE (NEGATIVE); KETONES,URINE NEGATIVE (NEGATIVE); LEUKOCYTE ESTERASE ,URINE NEGATIVE (NEGATIVE); NITRITE,URINE NEGATIVE (NEGATIVE); PH,URINE 8.5 (5-9); PROTEIN,URINE TRACE (NEGATIVE)
[2022-04-16 12:20] LABS: BACTERIA,URINE MODERATE /HPF; COLOR,URINE DARK YELLOW; RBC,URINE 0-2 /HPF
[2022-04-16 12:25] LABS: AMPHETAMINE SCREEN, URINE NEGATIVE (NEGATIVE); BARBITURATE SCREEN URINE NEGATIVE (NEGATIVE); BENZODIAZEPINES SCREEN URINE NEGATIVE (NEGATIVE); CANNABINOID SCREEN, URINE POSITIVE (NEGATIVE); COCAINE SCREEN URINE NEGATIVE (NEGATIVE); METHADONE STAT NEGATIVE (NEGATIVE); OPIATE SCREEN URINE NEGATIVE (NEGATIVE); OXYCODONE STAT NEGATIVE (NEGATIVE); PROPOXYPHENE STAT NEGATIVE (NEGATIVE); TRICYCLIC ANTIDEPRESSANTS SCRE NEGATIVE (NEGATIVE)
--- NOTE | 2022-04-16 12:27 | Diagnostic Imaging Report ---
PROCEDURE: CT abdomen and pelvis without contrast. TECHNIQUE: Multiple contiguous axial images were obtained through the abdomen and pelvis without the use of intravenous contrast. Auto Exposure Controls were utilized during the CT exam to meet ALARA standards for radiation dose reduction. INDICATION: Right lower quadrant abdominal pain. COMPARISON: 08/19/2020 FINDINGS: The lung bases are clear. The heart is normal in size. The liver demonstrates no focal lesions. There is hepatic steatosis. The liver is large measuring 21 cm in length. The spleen appears normal. The pancreas is normal. The adrenal glands appear normal. The kidneys are excreting contrast and there is contrast in the urinary bladder. No hydronephrosis is seen. The bowel loops are nondistended without obstruction. The appendix is normal. There is diverticulosis of the descending and sigmoid colon without diverticulitis. There is a dominant follicle in the right ovary which measures about 2.8 cm in size. There is trace free fluid in the pelvis. Anastomotic sutures are noted in the bowel. No acute osseous abnormality is seen. IMPRESSION: 1. No appendicitis. 2. Dominant right ovarian follicle measuring 2.8 cm. Trace free fluid in the pelvis. 3. Colonic diverticulosis without diverticulitis. 4. Hepatic steatosis. Dictated by: Dictated on workstation # [id number]
[2022-04-16 12:56] VITALS: BP 151/76
== END 2022-04-16 12:56 | disposition home or self-care (01) ==
LOC: EDUNIT# 10:47 → ER FS 10:48
DX: K57.30 Diverticulosis of large intestine without perforation or abscess without bleeding (principal); F12.90 Cannabis use, unspecified, uncomplicated; E66.01 Morbid (severe) obesity due to excess calories; Z68.42 Body mass index [BMI] 45.0-49.9, adult; Z90.49 Acquired absence of other specified parts of digestive tract; Z91.040 Latex allergy status
CPT/HCPCS: 36415; 74176; 80053; 80306; 81000; 83605; 83690; 83735; 84484; 85025; 87088

== ENCOUNTER 2022-09-27 05:37 | Outpatient (CLI) | payer MEDICAID ==
[~2022-09-27] VITALS: Ht 162.6 cm; Wt 129.3 kg
[2022-09-27] MEDS ORDERED: TRAM50TA3 PO (11:26)
[2022-09-27] MEDS ORDERED: FLUT9.9S NS (11:26)
[2022-09-27] MEDS ORDERED: MULT-593 PO (11:26)
== END 2022-09-27 11:27 | disposition home or self-care (01) ==
LOC: PREOP 05:37
PROVIDERS: ATTEND Surgery
DX: Z01.818 Encounter for other preprocedural examination (principal)

== ENCOUNTER → 2022-10-02 | Outpatient (CLI) | payer MEDICAID ==
[~2022-10-02] MED LIST changes: +CATHETER FLUSH 10 ML SYR IV PRN; +HOLD METFORMIN - RECEIVED CONTRAST 20 ML VIAL IV SCH; +IOHEXOL 350 MG/ML 100 ML (OMNIPAQUE 350) VIAL IV ONE; +MULT-593 PO; +NS 100 ML (IVPB) BAG IV ONE; +TRAM50TA3 PO
--- NOTE | 2022-10-02 11:11 | Diagnostic Imaging Report ---
PROCEDURE: CT abdomen and pelvis with contrast. TECHNIQUE: Multiple contiguous axial images were obtained through the abdomen and pelvis after administration of intravenous contrast. Auto Exposure Controls were utilized during the CT exam to meet ALARA standards for radiation dose reduction. All CT scans use one or more of the following dose optimizing techniques: automated exposure control, MA and/or KvP adjustment based on patient size and exam type or iterative reconstruction. INDICATION: Ventral incisional hernia. COMPARISON: Prior CT from 04/16/2022. FINDINGS: The lung bases are clear. The liver does show generalized low attenuation, consistent with hepatic steatosis. No liver mass is identified. The gallbladder is surgically absent. There is no biliary ductal dilatation. The pancreas and spleen are unremarkable. A small left adrenal nodule is stable. The kidneys are unremarkable. The aorta is nonaneurysmal. There is diverticulosis of the descending and sigmoid colon but no evidence of acute diverticulitis. No definite abdominal wall hernia is identified. The bowel loops are of normal caliber. There is no obstruction. Postop changes involving small bowel loops in the central abdomen are noted. No free fluid or fluid collection is seen. The bladder is unremarkable. The uterus is surgically absent. IMPRESSION: 1. Hepatic steatosis. 2. Stable left adrenal nodule. 3. Uncomplicated diverticulosis. 4. Postop changes in the anterior abdominal wall. No recurrent hernia is detected. Dictated by: Dictated on workstation # [id number]
== END ==
LOC: RAD FS 09:06
PROVIDERS: ATTEND Surgery
DX: K76.0 Fatty (change of) liver, not elsewhere classified (principal); K57.90 Diverticulosis of intestine, part unspecified, without perforation or abscess without bleeding; Z98.890 Other specified postprocedural states; K43.2 Incisional hernia without obstruction or gangrene
CPT/HCPCS: 74177; Q9967

== ENCOUNTER 2022-10-06 10:53 | Day surgery (SDC) | payer MEDICAID ==
[~2022-10-06] VITALS: Ht 163 cm; Wt 129.3 kg
[~2022-10-06 10:53] MED LIST changes: -CATHETER FLUSH 10 ML SYR IV PRN; -HOLD METFORMIN - RECEIVED CONTRAST 20 ML VIAL IV SCH; -IOHEXOL 350 MG/ML 100 ML (OMNIPAQUE 350) VIAL IV ONE; -NS 100 ML (IVPB) BAG IV ONE
[2022-10-06] MEDS ORDERED: LACTATED RINGERS 1,000 ML IV STA (11:06)
[2022-10-06] MEDS ORDERED: HURRICAINE EXT TUBE (BENZOCAINE) XX PRN (11:15)
[2022-10-06 12:30] VITALS: BP 127/80
--- NOTE | 2022-10-06 13:31 | Progress Note-Pre Operative ---
Pre-Operative Progress Note Date H&P Reviewed: Oct 06, 2022 Time H&P Reviewed: 13:30 History & Physical: H&P Reviewed, Patient Examed, No changes noted Pre-Operative Diagnosis: hx polyps, gerd MACARIO SINGH DO Oct 06, 2022 13:31
[2022-10-06] MEDS ORDERED: KETAMINE 50 MG/5 ML SYRINGE ONE (13:35)
[2022-10-06] MEDS ORDERED: PROPOFOL INJECTION 50 ML IV ONE (13:35)
[2022-10-06] MEDS ORDERED: MIDAZOLAM 2 MG/2 ML (VERSED) VIAL ONE (13:35)
[2022-10-06 14:05] VITALS: BP 104/50
--- NOTE | 2022-10-06 14:06 | Progress Note-Post Operative ---
Post-Operative Progess Note Surgeon (s)/Underwriting Clerk (s) Surgeon MACARIO SINGH DO Underwriting Clerk: na Pre-Operative Diagnosis hx polyps, gerd Post-Operative Diagnosis hiatal hernia, diverticulosis, transverse colon polyp Procedure & Operative Findings Date of Procedure 10/06/22 Procedure Performed/Findings egd c biopsies, colonoscopy c hot bx polypectomy x 1 Anesthesia Type per instructor flying Estimated Blood Loss Estimated blood loss (mL): none Specimens/Packing Specimens Removed antrum, ge, transverse colon polyp MACARIO SINGH DO Oct 06, 2022 14:06
--- NOTE | 2022-10-06 14:06 | Discharge Inst-Simple/Standard ---
Discharge Inst-Standard Patient Instructions/Follow Up Plan of Care/Instructions/FU: 2 weeks Asaf Activity as Tolerated: Yes Discharge Diet: Regular Diet MACARIO SINGH DO Oct 06, 2022 14:06
[2022-10-06 14:10] VITALS: BP 94/51
[2022-10-06 14:15] VITALS: BP 110/64
[2022-10-06 14:43] VITALS: BP 110/64
--- NOTE | 2022-10-06 15:01 | Anesthesia-General Post-Op ---
MAC Patient Condition Mental Status/LOC: Same as Preop Cardiovascular: Satisfactory Nausea/Vomiting: Absent Respiratory: Satisfactory Pain: Controlled Complications: Absent Post Op Complications Complications None Follow Up Care/Instructions Patient Instructions None needed. Anesthesiology Discharge Order Discharge Order Patient is doing well, no complaints, stable vital signs, no apparent adverse anesthesia problems. No complications reported per nursing. LARON BUSTOS CRNA Oct 06, 2022 15:01
--- NOTE | 2022-10-06 21:13 | OPERATIVE REPORT ---
DATE OF SERVICE: 10/06/2022 PREOPERATIVE DIAGNOSES: History of polyps, gastroesophageal reflux disease. POSTOPERATIVE DIAGNOSES: Hiatal hernia, diverticulosis, transverse colon polyp. PROCEDURES: EGD with biopsies, colonoscopy with hot biopsy polypectomy x1. SURGEON: Macario Ron DO ANESTHESIA: Per LABORATORY MACHINIST. ESTIMATED BLOOD LOSS: None. COMPLICATIONS: None. SPECIMENS: Antrum, GE junction and transverse colon polyps. INDICATIONS: The patient is a 37-year-old female with history of polyps and GERD symptoms. She understands risks and benefits of procedures and wished to proceed. Consent was signed in chart. DESCRIPTION OF PROCEDURE: The patient was taken to endoscopy suite, placed in the left lateral recumbent position. Timeout was performed. Scope was inserted in the mouth, down the esophagus, stomach, into the duodenum without difficulty. No polyps, masses or ulcerations within the duodenum. Scope was slowly retracted back into stomach where it was further insufflated. No polyps, masses or ulcerations. Biopsy of the antrum was obtained. Scope was retroflexed noting a small to moderate size hiatal hernia, no other pathology. Scope was returned to its normal position. Biopsy of the antrum was obtained. Once scope was retracted back into the GE junction, there were no polyps, masses or ulcerations. Biopsy of GE junction was obtained. Scope was slowly retracted back until completely removed. Digital rectal exam was performed. No palpable polyps, masses or ulcerations. Scope was inserted in the rectum, advanced all the way to the cecum with minimal difficulty. Prep was adequate. Scope was slowly retracted back. No polyps, masses or ulcerations in the cecum. The ascending colon, transverse colon, small polyp was present, which hot biopsy polypectomy was performed. Scope was then continuously retracted back. No polyps, masses or ulcerations in the remainder of the transverse, descending, and sigmoid colon. Throughout the colon, diverticulosis was present. Once in the rectum, scope was retroflexed, noting no other pathology. Scope was returned to its normal position, slowly withdrawn until completely removed. The patient tolerated the procedure well without any complications, taken to recovery room in stable condition. RECOMMENDATIONS: The patient will need repeat colonoscopy in 5 years. She will follow up on pathology in 2 weeks. Any issues before that, be seen at that time. We will continue on current medications. Job ID: [id number] DocumentID: [id number] Dictated Date: 10/06/2022 14:09:26 Mobile Heavy Equipment Mechanic Date: 10/06/2022 21:11:00 Dictated By: MACARIO RON DO
== END 2022-10-06 15:00 | disposition home or self-care (01) ==
LOC: ENDO 10:53
PROVIDERS: ATTEND Surgery
DX: Z12.11 Encounter for screening for malignant neoplasm of colon (principal); K63.5 Polyp of colon; K57.30 Diverticulosis of large intestine without perforation or abscess without bleeding; K44.9 Diaphragmatic hernia without obstruction or gangrene; K21.00 Gastro-esophageal reflux disease with esophagitis, without bleeding; K29.70 Gastritis, unspecified, without bleeding; K43.2 Incisional hernia without obstruction or gangrene; E66.01 Morbid (severe) obesity due to excess calories; Z68.42 Body mass index [BMI] 45.0-49.9, adult; F17.210 Nicotine dependence, cigarettes, uncomplicated

== ENCOUNTER 2023-03-22 09:51 | Emergency (ER) | payer MEDICAID ==
[~2023-03-22] VITALS: Ht 162 cm; Wt 129.3 kg
--- NOTE | 2023-03-22 10:17 | ED Cough/URI ---
General Chief Complaint: COVID19 Suspect/Confirmed Stated Complaint: LUNG PAIN; COVID+ History of Present Illness Date Seen by Provider: Mar 22, 2023 Time Seen by Provider: 10:00 Initial Comments 38 yr F with PMH of Asthma is here with c/o of being COVID positive and lung pain and mild SOB. Pt has had symptoms for the past 3 days and had a positive home test today. Pt's daughter also has COVID. Pt is almost out of her albuterol inhaler and would like a refill. Denies palpitations, SOB at this time, chest pain, fever and chills. Allergies and Home Medications Allergies Coded Allergies: buspirone (Verified Allergy, Intermediate, SEVERE ANXIETY, 11/27/17) aripiprazole (Verified Allergy, Unknown, Heart racing, 08/24/18) bismuth subsalicylate (Unverified Allergy, Unknown, NAUSEA, 11/27/17) latex (Unverified Allergy, Unknown, RASH, 11/27/17) meperidine (Unverified Allergy, Unknown, RASH, 11/27/17) promethazine (Unverified Allergy, Unknown, DIFFICULTY BREATHING, 11/27/17) Uncoded Allergies: TAPE (Adverse Reaction, Unknown, RASH, 09/15/13) Patient Home Medication List Home Medication List Reviewed: Yes Albuterol Sulfate (Albuterol Sulfate) 2.5 Mg/3 Ml Vial.neb, 2 PUFF IH Q4H, (Reported) Entered as Reported by: MARILOU CHO on 07/12/19 0207 Albuterol Sulfate (Ventolin Hfa) 1 Puff Puff, 2 PUFF IH Q4H Prescribed by: KENZIE FLORES on 02/25/20 0956 Fluticasone Propionate (Flonase Allergy Relief) 50 Mcg/Actuation [place].susp, 2 SPRAY NS DAILY, (Reported) Entered as Reported by: ZHANG KELLER on 09/27/22 1126 Multivitamin with Minerals (Multiple Vitamin) 1 Each Tablet, 1 EACH PO DAILY, (Reported) Entered as Reported by: ZHANG KELLER on 09/27/22 1126 Ondansetron (Ondansetron Odt) 8 Mg Tab.rapdis, 8 MG PO Q6H Prescribed by: MORA WALKER MD on 03/07/22 0925 Pantoprazole Sodium (Protonix) 40 Mg Tablet.dr, 40 MG PO DAILY, (Reported) Entered as Reported by: MARCO CEJA on 11/20/17 0922 Tramadol HCl (Tramadol HCl) 50 Mg Tablet, 50 MG PO UD PRN for PAIN, (Reported) Entered as Reported by: ZHANG KELLER on 09/27/22 1126 Review of Systems Review of Systems Constitutional: see HPI, chills EENTM: nose congestion Respiratory: cough, dyspnea on exertion Cardiovascular: no symptoms reported Gastrointestinal: no symptoms reported Genitourinary: no symptoms reported Past Mwhfivt-Tnqirs-Hoxzlj Hx Patient Social History Tobacco Use?: Yes Tobacco type used: Cigarettes Smoking Status: Current Everyday Smoker Use of E-Cig and/or Vaping dev: No Substance use?: No Alcohol Use?: No Pt feels they are or have been: No Immunizations Up To Date Tetanus Booster (TDap): Unknown First/Initial COVID19 Vaccinat: 01/2021 Second COVID19 Vaccination [place]: 02/22/2021 Third COVID19 Vaccination Date: 01/2021 Seasonal Allergies Seasonal Allergies: No Past Medical History Surgery/Hospitalization HX: DM; Hysterectomy; Cholecysectomy; Hiatal hernia with repair; Colitis, Chron's disease; GERD; HTN Surgeries: Yes (EGD's, Colonoscopys, D&C) Abdominal, Section, Hysterectomy Respiratory: Yes Asthma, Sleep Apnea, COPD Currently Using CPAP: No Currently Using BIPAP: No Cardiac: Yes High Cholesterol Neurological: No Reproductive Disorders: No Female Reproductive Disorders: Denies [employer] SERVICES DIRECT[employer] History: Hysterectomy Sexually Transmitted Disease: No HIV/AIDS: No Genitourinary: Yes Kidney Stones Gastrointestinal: Yes Gastroesophageal Reflux, Crohns Disease, Diverticulosis, Esophagitis Musculoskeletal: Yes Arthritis, Chronic Back Pain Endocrine: Yes (DM Type II, Morbid Obesity) Diabetes, Non-Insulin dep HEENT: No Loss of Vision: Bilateral Hearing Impairment: Denies Cancer: No Psychosocial: Yes Anxiety, Bipolar, Depression Integumentary: No Blood Disorders: No Adverse Reaction/Blood Tranf: No (HAS HAD BLOOD WITH NO REACTION) Family Medical History No Pertinent Family Hx Physical Exam Vital Signs - First Documented 03/22/23 09:55 Temp 37.7 Pulse 91 Resp 16 B/P (MAP) 124/81 (95) Pulse Ox 99 O2 Delivery Room Air Capillary Refill : Height: 5'4.00" Weight: 262lbs. 0oz. 118.517595hs; 48.66 BMI Method:Stated General Appearance: WD/WN, no apparent distress HEENT: PERRL/EOMI, normal ENT inspection, pharynx normal Neck: non-tender, full range of motion Respiratory: chest non-tender, lungs clear, normal breath sounds, no respiratory distress, no accessory muscle use Cardiovascular: regular rate, rhythm, no edema Gastrointestinal: non tender, soft Neurologic/Psychiatric: alert, oriented x 3 Skin: normal color Progress/Results/Core Measures Suspected Sepsis SIRS Temperature: Pulse: Respiratory Rate: Blood Pressure / Mean: Results/Orders My Orders Orders - SANGITA GONZALEZ MD Dexamethasone Injection (Dexamethasone (03/22/23 10:15) Ketorolac Injection (Ketorolac Injection (03/22/23 10:15) Medications Given in ED Current Medications Medications Dose Ordered Sig/Christoph Route Start Time Stop Time Status Last Admin Dose Admin Dexamethasone Sodium Phosphate 10 mg ONCE ONCE IM 03/22/23 10:15 03/22/23 10:16 DC 03/22/23 10:18 10 MG Ketorolac Tromethamine 30 mg ONCE ONCE IM 03/22/23 10:15 03/22/23 10:16 DC 03/22/23 10:18 30 MG Vital Signs/I&O 03/22/23 09:55 Temp 37.7 Pulse 91 Resp 16 B/P (MAP) 124/81 (95) Pulse Ox 99 O2 Delivery Room Air Capillary Refill : Progress Note : Progress Note 1. COVID POSITIVE WITH PLEURISY: - Dexa methasone 10mg im and Toradol 30mg im given in ER with improvement in symptoms - ALbuterol inhaler refill prescription given, as well as Tessalon Perle to be taken as needed for cough every 8 hours. -Advised vitamin C, zinc, and vitamin D advised vitamin C, zinc, and vitamin D. -Adequate hydration advised -Follow-up with PCP as needed -The patient was seen in the ED, and treated appropriately to presentation at a specific point in time. Patient is informed that there is a possibility that disease and illness can evolve and change in acuity rapidly or slowly after patient is discharged from the ER. Precautionary advice given to the patient for immediate return to ER if symptoms worsen or do not resolve, and to seek emergency care sooner rather than later. Pt also advised on the importance of PCP follow up and compliance with management and follow up plan with PCP and/or specialist, as this is part of the management plan. Pt verbally expressed understanding. Departure Impression Primary Impression: COVID-19 Additional Impression: Viral pleurisy Disposition: HOME, SELF-CARE Condition: Improved Departure-Patient Inst. Referrals: VALERIE GILES APRN (PCP) Primary Care Physician [facility] (Family) Primary Care Physician Patient Instructions: Prone Position, Pleuritic Chest Pain ED, COVID-19 overview Add. Discharge Instructions: - Albuterol inhaler refill prescription given, as well as Tessalon Perle to be t aken as needed for cough every 8 hours. -Advised vitamin C, zinc, and vitamin D advised vitamin C, zinc, and vitamin D. -Adequate hydration advised -Follow-up with PCP as needed All discharge instructions reviewed with patient and/or family. Voiced unders tanding. Scripts Benzonatate (TESSALON PERLES) 100 Mg Capsule 100 MG PO TID for 5 Days, #20 CAP Prov: SANGITA GONZALEZ MD 03/22/23 Albuterol Sulfate (VENTOLIN HFA) 1 Puff Puff 2 PUFF INH Q4H for Shortness of Breath for 30 Days, #1 EA 1 PUFF = 90 MCG Prov: SANGITA GONZALEZ MD 03/22/23 SANGITA GONZALEZ MD Mar 22, 2023 10:17
[2023-03-22] MEDS: dexAMETHasone INJ 10 MG/ML 1 ML VIAL IM ONE (10:18)
[2023-03-22] MEDS: KETOROLAC INJ 30 MG/ML VIAL IM ONE (10:18)
[2023-03-22 10:36] VITALS: BP 124/81
[2023-03-22] MEDS ORDERED: BENZ100C18 PO (10:39)
[2023-03-22] MEDS ORDERED: RT-ALBUINH INH (10:39)
== END 2023-03-22 10:41 | disposition home or self-care (01) ==
LOC: EDUNIT# 09:51 → ER FS 09:53
DX: U07.1 COVID-19 (principal); B34.9 Viral infection, unspecified; E66.01 Morbid (severe) obesity due to excess calories; F17.210 Nicotine dependence, cigarettes, uncomplicated; Z91.148 Patient's other noncompliance with medication regimen for other reason; Z91.040 Latex allergy status; Z68.42 Body mass index [BMI] 45.0-49.9, adult; Z73.0 Burn-out
CPT/HCPCS: 99284